=== PATIENT | male | born 1955 | race Two or more races ===

== ENCOUNTER 2020-01-22 20:01 | Inpatient (IN) | payer BC ==
[2020-01-23] MEDS ORDERED: NALOXONE 0.4 MG/ML 1 ML VIAL IV PRN (01:15)
--- NOTE | 2020-01-23 01:33 | P.HPIM ---
History of Present Illness H&P Date: 01/22/20 Chief Complaint: cough, SOB I was wearing full PPE during this encounter including N95 mask, face shield, double gloves, gown, and head cover. patient had a surgical mask on during my entire interview. i maintained 6 feet distance with the patient who verbalized understanding about these precautionary measures. except for during my physical exam where i had to be close to the patient. This patient was transferred from the [facility] 64-year-old male with rheumatoid arthritis on methotrexate Patient comes in with three-week history of fever and dry cough and headaches. He also reports diarrhea for 3 weeks described it as yellow brownish loose stools. Worsening shortness of breath over the past 3 weeks. He denies any body aches denies any loss of taste or smell sensation he reports extensive fatigue. Denies any sore throat denies any runny nose denies any chest pain denies any abdominal pain denies any recent travel denies any close contact with covid19 positive patient Patient has been on methotrexate for rheumatoid arthritis. Patient describes dry cough which has been getting worse. He tested positive for Covid19 Workup done at [facility] Chest x-ray showing bilateral diffuse infiltrates EKG showed normal sinus rhythm with normal QTc interval He was given Z-Mike and Rocephin and magnesium sulfate and potassium at [facility] Patient has normal white count with lymphopenia 0.46 He has acute kidney injury with creatinine of 1.39 and hyponatremia with sodium of 132 Hypokalemia 2.9 Metabolic acidosis with bicarb of 20 Liver enzymes were normal D-dimer slightly elevated 1.1 this is of prognostic value for Covid Lactic acid was normal Troponin negative LDH 390 elevated C-reactive protein elevated Review of Systems Pertinent positives as noted in HPI. All other systems were reviewed and are negative Past Medical History Past Medical History: Rheumatoid Arthritis (RA) Additional Past Medical History / Comment(s): rheumatoid arthritis History of Any Multi-Drug Resistant Organisms: None Reported Past Surgical History: No Surgical Hx Reported Past Anesthesia/Blood Transfusion Reactions: No Reported Reaction Smoking Status: Former smoker - Past Family History family Family Medical History: No Reported History Medications and Allergies Home Medications Medication Instructions Recorded Confirmed Type Albuterol Inhaler [Ventolin Hfa 2 puff INHALATION RT-TID PRN 01/22/20 01/22/20 History Inhaler] Methotrexate Sodium [Methotrexate] 12.5 mg PO SA 01/22/20 01/22/20 History Omeprazole 20 mg PO DAILY 01/22/20 01/22/20 History Allergies Allergy/AdvReac Type Severity Reaction Status Date / Time No Known Allergies Allergy Verified 01/22/20 22:50 Physical Exam Vitals: Vital Signs Temp Pulse Resp BP Pulse Ox 01/22/20 23:39 98.5 F 72 17 111/68 95 01/22/20 22:15 98.4 F 73 18 129/76 98 Intake and Output 01/22/20 01/22/20 01/23/20 14:59 22:59 06:59 Other: Weight 93 kg Limited exam was done to prevent spread of the disease as patient tested positive for occult blood in part of exam was inspection Constitutional: No acute distress, conversant, pleasant, and nasal cannula 2 L Eyes: Anicteric sclerae, Pupils equal round ENMT: NC/AT Neck: Supple, FROM, Lungs: Normal respiratory effort, no accessory muscle use Cardiovascular: No peripheral edema Abdominal: Abdomen moving with respiration Skin: Visible portion of the skin Normal temperature, tone, texture, turgor Extremities: No digital cyanosis No clubbing No calf tenderness Psychiatric: Alert and oriented to person, place and time Appropriate affect fair judgement Neuro patient moving all extremities Lymphatics: deferred Thrombosis Risk Factor Assmnt - Choose All That Apply Each Risk Factor Represents 2 Points: Age 61-74 years Thrombosis Risk Factor Assessment Total Risk Factor Score: 2 Thrombosis Risk Factor Assessment Level: Low Risk Assessment and Plan Assessment: 64-year-old male with rheumatoid arthritis on methotrexate Patient tested positive for covert, presented with symptoms of pneumonia chest x-ray suggested atypical pneumonia covert is positive but cannot rule out superimposed bacterial infection Patient also has acute kidney injury and hypokalemia Anticipated length of stay more than 2 midnights Acute hypoxic respiratory failure Atypical pneumonia secondary to covert positive, cannot rule out underlying superimposed bacterial pneumonia Acute kidney injury, secondary to dehydration and prerenal ATN Mild hyponatremia Hypokalemia Diarrhea mostly due to this part of GI symptoms associated with covid 19 Immune compromise secondary to methotrexate for rheumatoid arthritis Plan Blood culture Follow-up cultures Influenza negative Patient started on Plaquenil Rocephin and doxycycline for atypical pneumonia Zinc by mouth Follow-up blood work D-dimer is of prognostic value for covert patient's currently blood clots is not suspected IV fluid hydration gentle as Covid patient's preferably kept with negative balance, normal saline 75 mL per hour Replace potassium as needed Chest x-ray in the morning Discontinue methotrexate Preformed a thorough record review from recent hospitalization from the [facility] summarized in HPI CODE STATUS: Full code DVT prophylaxis: Upper subcu 3 times a day Discussed with: Patient, ER, RN Anticipated length of stay > than [address]: Home A total of 60 minutes was spent on the care of this complex patient more than 50% of the time was spent in counseling and care coordination.
[2020-01-23] MEDS: HYDROXYCHLOROQUINE SULFATE 200 MG TAB PO SCH ×3 (01:53→21:50)
[2020-01-23] MEDS: SODIUM CHLORIDE 0.9% 1,000 ML IV SCH ×2 (01:54→15:58)
[2020-01-23] MEDS: DOXYCYCLINE 100 MG CAP PO SCH ×3 (01:54→21:49)
--- NOTE | 2020-01-23 07:28 | XR ---
EXAMINATION TYPE: XR chest 1V DATE OF EXAM: 01/23/2020 HISTORY: covid COMPARISON: None. TECHNIQUE: Single view of the chest is submitted. FINDINGS: Mixed interstitial and airspace type infiltrates noted right upper lobe, right medial lung base, left upper lobe and left medial lung base. Lung volumes are diminished. The heart is not enlarged Hilar and mediastinal structures are within normal limits. Degenerative changes are seen of the dorsal spine. IMPRESSION: 1. Suspect COVID
[2020-01-23] MEDS: ZINC SULFATE 220 MG CAP PO SCH (07:49)
[2020-01-23] MEDS: HEPARIN SODIUM,PORCINE 5,000 UNIT/ML 1 ML VIAL SQ SCH ×3 (07:50→23:19)
[2020-01-23] MEDS: ACETAMINOPHEN TAB 325 MG TAB PO PRN ×2 (08:06→15:58)
[2020-01-23 08:36] LABS: Basophils % (A) 0 %; Eosinophils % (A) 1 %; HCT 36.8 % (39.0-53.0); HGB 12.9 gm/dL (13.0-17.5); Lymphocytes # (A) 0.3 k/uL (1.0-4.8); Lymphocytes % (A) 12 %; MCH 30.1 pg (25.0-35.0); Mean Platelet Volume 7.9; Monocytes # (A) 0.1 k/uL (0-1.0); Monocytes % (A) 4 %; Neutrophils # (A) 2.4 k/uL (1.3-7.7); Neutrophils % (A) 82 %; Platelet Count 265 k/uL (150-450); RBC 4.28 m/uL (4.30-5.90); RDW 14.1 % (11.5-15.5)
[2020-01-23 08:47] LABS: ALT 16 U/L (4-49); AST 36 U/L (17-59); African American GFR (CKD) >90 (>60 ml/min/1.73 sqM); Albumin 2.9 g/dL (3.5-5.0); Alkaline Phosphatase 48 U/L (38-126); Anion Gap 12 mmol/L; Blood Urea Nitrogen 15 mg/dL (9-20); Calcium 7.9 mg/dL (8.4-10.2); Carbon Dioxide 17 mmol/L (22-30); Chloride 102 mmol/L (98-107); Glucose 95 mg/dL (74-99); Non-African American GFR(CKD) >90 (>60 ml/min/1.73 sqM); Potassium 3.4 mmol/L (3.5-5.1); Sodium 131 mmol/L (137-145); Total Bilirubin 0.3 mg/dL (0.2-1.3); Total Protein 5.8 g/dL (6.3-8.2)
[2020-01-23] MEDS: ALBUTEROL HFA INHALER INHALATION SCH ×4 (08:48→19:42)
[2020-01-23] MEDS ORDERED: POTASSIUM CHLORIDE ER 20 MEQ TAB.ER PO STA (09:05)
[2020-01-23] MEDS: PANTOPRAZOLE 40 MG TABLET PO SCH (09:27)
[2020-01-23 11:25] LABS: Ferritin 530.5 ng/mL (22.0-322.0)
--- NOTE | 2020-01-23 12:49 | P.PN ---
Subjective Progress Note Date: 01/23/20 Patient seen and examined at bedside, has had a bowel movement this morning. Still have episodes of fever T-max 102, patient reports fatigue and weakness and some difficulty breathing. Chest x-ray this morning suspicious for Covid as it showed mixed interstitial and airspace type infiltrates in the right upper lobe and right medial lung left upper lobe and left medial lung base Objective - Vital Signs Vital signs: Vital Signs Temp 98.4 F 01/23/20 03:15 Pulse 69 01/23/20 03:15 Resp 18 01/23/20 03:15 BP 134/78 01/23/20 03:15 Pulse Ox 95 01/23/20 03:15 Intake & Output 01/22/20 01/23/20 01/23/20 18:59 06:59 18:59 Intake Total 50 Balance 50 Weight 93 kg Intake: Intake, IV Titration 50 Amount cefTRIAXone 1 gm In 50 Sodium Chloride 0.9% 50 ml @ 100 mls/hr IVPB Q24HR [facility] Rx#:[id number] Other: Voiding Method Toilet - Exam Constitutional: No acute distress, conversant, pleasant Eyes: Anicteric sclerae, moist conjunctiva, no lid-lag, PERRLA ENMT: NC/AT,Oropharynx clear, no erythema, exudates Neck:Supple, FROM, no masses, or JVD, No carotid bruits; No thyromegaly Lungs: Diminished in the bases, scattered rhonchi and crackles, unlabored on 2 L Cardiovascular: Heart regular in rate and rhythm, No murmurs, gallops, or rubs no peripheral edema Abdominal: Soft Nontender, nom distended, no guarding, no rebound or rigidity, Normoactive bowel sounds No hepatomegaly, No splenomegaly, No palpable mass No abdominal wall hernia noted Skin: Normal temperature, tone, texture, turgor, No induration No subcutaneous nodules, No rash, lesions, No ulcers Extremities:No digital cyanosis No clubbing, Pedal pulses intact and symmetrical Radial pulses intact and symmetrical Normal gait and station, No calf tenderness Psychiatric: Alert and oriented to person, place and time, Appropriate affect Intact judgement Neuro: Muscles Strength 5/5 in all 4 extremities, Sensation to light touch grossly present throughout, Cranial nerves II-XII grossly intact. No focal sensory deficits - Labs CBC & Chem 7: 01/23/20 07:30 01/23/20 07:30 Assessment and Plan Assessment: nCoV acute respiratory disease with sepsis * Chest x-ray suggestive of Covid * Today's labs showing lymphopenia 0.3, pro-calcitonin 0.17 * Continue current antibiotic regimen with doxycycline and Rocephin and Plaquenil * ID consult pending Acute hypoxic respiratory failure * Continue supplemental oxygen Acute kidney injury, secondary to dehydration and prerenal ATN * Now resolved * Creatinine stable at 0.85, Mild hyponatremia * Continue gentle hydration Hypokalemia * We'll replace and continue to monitor Diarrhea mostly due to this part of GI symptoms associated with covid 19 * Secondary to Covid Immune compromise secondary to methotrexate for rheumatoid arthritis Disposition * Continue current management * Patient oxygen saturations holding stable, continue supportive management
[2020-01-23 18:12] LABS: C Reactive Protein 121.4 mg/L (<10.0)
--- NOTE | 2020-01-23 23:39 | P.CONS ---
History of Present Illness - Reason for Consult Consult date: 01/23/20 POSSIBLE covid19 Requesting physician: Andi Quintero - Chief Complaint shortness of breath and cough x days - History of Present Illness Patient is 64-year-old male with a past medical history of treatment for rheumatoid arthritis on methotrexate presenting to the outside facility with fever cough and headache and also been complaining of diarrhea of 3 weeks dura tion the patient denies any recent travel or close contact patient was evaluated at [facility] patient did have a chest x-ray with diffuse infiltrate was noted to have lymphopenia and evidence of for mild insufficiency and hyperkalemia with concern for possible COVID-19 infection patient has been transferred to [facility] for further management of his condition. On examination patient did have T-max of 102 F he is 94% 4 L nasal cannula , lung examination did shows bilateral coarse breath sounds no significant wheeze Labs--patient did have lymphopenia with a lymphocyte count of 0.3% patient had did have elevated ferritin of 530 LDH of 1067 CRP of 121.4 chest x-ray with bilateral diffuse infiltrate. A/P_--patient with underlying rheumatoid arthritis on methotrexate presented to hospital with increasing shortness of breath cough cough did have diarrhea this patient who did have fever hypoxemia lymphopenia highly suggestive of acute COVID-19 infection with a testing currently pending patient will be treated with the Plaquenil zinc respiratory support may consider low-dose steroids awaiting COVID-19 testing Past Medical History Past Medical History: Rheumatoid Arthritis (RA) Additional Past Medical History / Comment(s): rheumatoid arthritis History of Any Multi-Drug Resistant Organisms: None Reported Past Surgical History: No Surgical Hx Reported Past Anesthesia/Blood Transfusion Reactions: No Reported Reaction Smoking Status: Former smoker - Past Family History family Family Medical History: No Reported History Medications and Allergies Home Medications Medication Instructions Recorded Confirmed Type Albuterol Inhaler [Ventolin Hfa 2 puff INHALATION RT-TID PRN 01/22/20 01/22/20 History Inhaler] Methotrexate Sodium [Methotrexate] 12.5 mg PO SA 01/22/20 01/22/20 History Omeprazole 20 mg PO DAILY 01/22/20 01/22/20 History Allergies Allergy/AdvReac Type Severity Reaction Status Date / Time No Known Allergies Allergy Verified 01/22/20 22:50 Physical Exam Vitals: Vital Signs Temp Pulse Resp BP Pulse Ox 04/03/20 11:03 98.5 F 62 18 111/66 93 L 01/23/20 07:00 102.0 F H 72 18 129/71 93 L 01/23/20 03:15 98.4 F 69 18 134/78 95 01/22/20 23:39 98.5 F 72 17 111/68 95 01/22/20 22:15 98.4 F 73 18 129/76 98 Intake and Output 01/23/20 01/23/20 01/23/20 06:59 14:59 22:59 Intake Total 50 Balance 50 Intake: Intake, IV Titration 50 Amount cefTRIAXone 1 gm In 50 Sodium Chloride 0.9% 50 ml @ 100 mls/hr IVPB Q24HR [facility] Rx#:[id number] Other: Voiding Method Toilet Toilet # Voids 2 # Bowel Movements 1 Results CBC & Chem 7: 01/23/20 07:30 01/23/20 07:30 Labs: Abnormal Lab Results - Last 24 Hours (Table) 01/23/20 01/23/20 01/23/20 Range/Units 02:06 02:06 07:30 WBC 3.0 L (3.8-10.6) k/uL RBC 4.28 L (4.30-5.90) m/uL Hgb 12.9 L (13.0-17.5) gm/dL Hct 36.8 L (39.0-53.0) % Lymphocytes # 0.3 L (1.0-4.8) k/uL Sodium (137-145) mmol/L Potassium (3.5-5.1) mmol/L Carbon Dioxide (22-30) mmol/L Calcium (8.4-10.2) mg/dL Ferritin 530.5 H (22.0-322.0) ng/mL Total Protein (6.3-8.2) g/dL Albumin (3.5-5.0) g/dL Procalcitonin 0.17 H (0.02-0.09) ng/mL 01/23/20 Range/Units 07:30 WBC (3.8-10.6) k/uL RBC (4.30-5.90) m/uL Hgb (13.0-17.5) gm/dL Hct (39.0-53.0) % Lymphocytes # (1.0-4.8) k/uL Sodium 131 L (137-145) mmol/L Potassium 3.4 L (3.5-5.1) mmol/L Carbon Dioxide 17 L (22-30) mmol/L Calcium 7.9 L (8.4-10.2) mg/dL Ferritin (22.0-322.0) ng/mL Total Protein 5.8 L (6.3-8.2) g/dL Albumin 2.9 L (3.5-5.0) g/dL Procalcitonin (0.02-0.09) ng/mL
[2020-01-24] MEDS: HYDROXYCHLOROQUINE SULFATE 200 MG TAB PO SCH ×2 (07:17→22:18)
[2020-01-24] MEDS: HEPARIN SODIUM,PORCINE 5,000 UNIT/ML 1 ML VIAL SQ SCH ×3 (07:17→23:45)
[2020-01-24] MEDS: DOXYCYCLINE 100 MG CAP PO SCH ×2 (07:17→20:01)
[2020-01-24] MEDS: ZINC SULFATE 220 MG CAP PO SCH (07:17)
[2020-01-24] MEDS: PANTOPRAZOLE 40 MG TABLET PO SCH (07:17)
[2020-01-24] MEDS: SODIUM CHLORIDE 0.9% 1,000 ML IV SCH ×2 (07:22→20:30)
[2020-01-24] MEDS: ACETAMINOPHEN TAB 325 MG TAB PO PRN ×4 (07:26→23:45)
[2020-01-24] MEDS: ALBUTEROL HFA INHALER INHALATION SCH ×4 (08:02→20:09)
[2020-01-24 08:03] LABS: ALT 18 U/L (4-49); AST 40 U/L (17-59); African American GFR (CKD) >90 (>60 ml/min/1.73 sqM); Albumin 2.7 g/dL (3.5-5.0); Alkaline Phosphatase 51 U/L (38-126); Anion Gap 10 mmol/L; Blood Urea Nitrogen 9 mg/dL (9-20); Calcium 7.9 mg/dL (8.4-10.2); Carbon Dioxide 18 mmol/L (22-30); Chloride 103 mmol/L (98-107); Glucose 94 mg/dL (74-99); Non-African American GFR(CKD) >90 (>60 ml/min/1.73 sqM); Potassium 3.6 mmol/L (3.5-5.1); Sodium 131 mmol/L (137-145); Total Bilirubin 0.4 mg/dL (0.2-1.3); Total Protein 5.5 g/dL (6.3-8.2)
[2020-01-24 08:21] LABS: Basophils % (A) 0 %; Eosinophils % (A) 1 %; HCT 36.4 % (39.0-53.0); HGB 12.7 gm/dL (13.0-17.5); Lymphocytes # (A) 0.4 k/uL (1.0-4.8); Lymphocytes % (A) 11 %; MCH 30.1 pg (25.0-35.0); MCHC 34.8 g/dL (31.0-37.0); MCV 86.6 fL (80.0-100.0); Mean Platelet Volume 7.9; Monocytes # (A) 0.1 k/uL (0-1.0); Monocytes % (A) 4 %; Neutrophils # (A) 2.8 k/uL (1.3-7.7); Neutrophils % (A) 83 %; Platelet Count 268 k/uL (150-450); WBC 3.4 k/uL (3.8-10.6)
--- NOTE | 2020-01-24 11:36 | P.PN ---
Subjective Progress Note Date: 01/24/20 Principal diagnosis: COVID pneumonia Patient seen and examined at bedside. Patient is COVID 19 positive. This morning patient required more oxygen at 6 L nasal cannula. This has relieved some of his shortness of breath. Fever at 7 AM this morning was 100.8. Patient is currently afebrile and doing better. Patient denies chest pain but admits to shortness of breath. Patient denies nausea and vomiting. Objective - Vital Signs Vital signs: Vital Signs Temp 98.5 F 01/24/20 11:09 Pulse 60 01/24/20 11:09 Resp 18 01/24/20 11:09 BP 124/64 01/24/20 11:09 Pulse Ox 95 01/24/20 11:09 Intake & Output 01/23/20 01/24/20 01/24/20 18:59 06:59 18:59 Intake Total 118 1200 118 Balance 118 1200 118 Intake: Intake, IV Titration 1200 Amount Sodium Chloride 0.9% 1, 1200 000 ml @ 75 mls/hr IV . [id number] [facility] Rx#:[id number] Oral 118 118 Other: Voiding Method Toilet Toilet Toilet # Voids 2 1 # Bowel Movements 1 1 - Exam General: [non toxic], [no distress], [appears at stated age] Derm: [warm], [dry] Head: [atraumatic], [normocephalic], [symmetric] Eyes: [EOMI], [no lid lag], [anicteric sclera] Mouth: [no lip lesion], [mucus membranes moist] Cardiovascular: [S1S2 reg], [no murmur], [positive posterior tibial pulse bilateral], Lungs: [DIMINISHED BREATH SOUNDS B/L], [MILD rhonchi B/L, no rales] , [no accessory muscle use] Abdominal: [soft], [ nontender to palpation], [no guarding], [no appreciable organomegaly] Ext: [no gross muscle atrophy], [no edema], [no contractures] Neuro: [ CN II-XI grossly intact], [no focal neuro deficits] Psych: [Alert], [oriented], [appropriate affect] - Labs CBC & Chem 7: 01/24/20 07:06 01/24/20 07:06 Labs: Abnormal Lab Results - Last 24 Hours (Table) 04/03/20 04/03/20 04/03/20 Range/Units 02:06 02:06 07:30 WBC (3.8-10.6) k/uL RBC (4.30-5.90) m/uL Hgb (13.0-17.5) gm/dL Hct (39.0-53.0) % Lymphocytes # (1.0-4.8) k/uL Sodium (137-145) mmol/L Carbon Dioxide (22-30) mmol/L Calcium (8.4-10.2) mg/dL Ferritin 530.5 H (22.0-322.0) ng/mL Lactate Dehydrogenase 1067 H (313-618) U/L C-Reactive Protein 121.4 H (<10.0) mg/L Total Protein (6.3-8.2) g/dL Albumin (3.5-5.0) g/dL Procalcitonin 0.17 H (0.02-0.09) ng/mL 01/24/20 01/24/20 Range/Units 07:06 07:06 WBC 3.4 L (3.8-10.6) k/uL RBC 4.20 L (4.30-5.90) m/uL Hgb 12.7 L (13.0-17.5) gm/dL Hct 36.4 L (39.0-53.0) % Lymphocytes # 0.4 L (1.0-4.8) k/uL Sodium 131 L (137-145) mmol/L Carbon Dioxide 18 L (22-30) mmol/L Calcium 7.9 L (8.4-10.2) mg/dL Ferritin (22.0-322.0) ng/mL Lactate Dehydrogenase (313-618) U/L C-Reactive Protein (<10.0) mg/L Total Protein 5.5 L (6.3-8.2) g/dL Albumin 2.7 L (3.5-5.0) g/dL Procalcitonin (0.02-0.09) ng/mL Assessment and Plan Assessment: Acute respiratory distress with sepsis secondary to COVID-19 PNEUMONIA * Today's labs showing lymphopenia 0.4 * Continue current antibiotic regimen with doxycycline and Rocephin and Plaquenil * ID consult appreciated Acute hypoxic respiratory failure * Continue supplemental oxygen AT 6L nc Mild hyponatremia * Continue gentle hydration Hypocalcemia * We'll replace and continue to monitor Diarrhea mostly due to this part of GI symptoms associated with covid 19 * Secondary to Covid Immune compromise secondary to methotrexate for rheumatoid arthritis Acute kidney injury, secondary to dehydration and prerenal ATN * Now resolved * Creatinine stable at 0.87, Disposition * Continue current management * Patient oxygen saturations holding stable, continue supportive management
[2020-01-24] MEDS: methylPREDNISolone SOD SUCCI 40 MG/ML 1 ML VIAL IV SCH (23:45)
[2020-01-25] MEDS: HEPARIN SODIUM,PORCINE 5,000 UNIT/ML 1 ML VIAL SQ SCH ×3 (07:12→23:17)
[2020-01-25] MEDS: PANTOPRAZOLE 40 MG TABLET PO SCH (07:12)
[2020-01-25] MEDS: ALBUTEROL HFA INHALER INHALATION SCH ×4 (07:41→21:08)
[2020-01-25 08:03] LABS: Basophils % (A) 0 %; Eosinophils % (A) 1 %; HCT 37.2 % (39.0-53.0); HGB 12.7 gm/dL (13.0-17.5); Lymphocytes # (A) 0.2 k/uL (1.0-4.8); Lymphocytes % (A) 5 %; MCH 29.7 pg (25.0-35.0); MCHC 34.2 g/dL (31.0-37.0); MCV 86.8 fL (80.0-100.0); Mean Platelet Volume 7.8; Monocytes % (A) 1 %; Neutrophils # (A) 2.9 k/uL (1.3-7.7); Neutrophils % (A) 92 %; Platelet Count 312 k/uL (150-450); RBC 4.28 m/uL (4.30-5.90); RDW 14.1 % (11.5-15.5); WBC 3.1 k/uL (3.8-10.6)
[2020-01-25 08:11] LABS: ALT 17 U/L (4-49); AST 43 U/L (17-59); African American GFR (CKD) >90 (>60 ml/min/1.73 sqM); Albumin 2.7 g/dL (3.5-5.0); Alkaline Phosphatase 61 U/L (38-126); Anion Gap 10 mmol/L; Blood Urea Nitrogen 11 mg/dL (9-20); Carbon Dioxide 21 mmol/L (22-30); Chloride 103 mmol/L (98-107); Glucose 118 mg/dL (74-99); Non-African American GFR(CKD) >90 (>60 ml/min/1.73 sqM); Potassium 3.7 mmol/L (3.5-5.1); Sodium 134 mmol/L (137-145); Total Bilirubin 0.5 mg/dL (0.2-1.3); Total Protein 5.5 g/dL (6.3-8.2)
--- NOTE | 2020-01-25 08:35 | PN ---
PROGRESS NOTE DATE OF SERVICE: 01/24/2020 REASON FOR FOLLOWUP: Acute COVID-19 pneumonia. INTERVAL HISTORY: The patient was afebrile this morning. Did spike a fever of 101 Fahrenheit in the afternoon. The patient is breathing slightly comfortably and denies having any chest pain. Did have a cough but no sputum. No nausea, no vomiting. No abdominal pain or diarrhea. PHYSICAL EXAMINATION: Blood pressure 104/62 with a pulse of 84, temperature 98.7. He is 95% on high-flow oxygen. General description is a middle-aged male lying in bed in no distress. Respiratory system: Unlabored breathing, decreased intensity of breath sounds. No wheeze. Heart S1, S2. Regular rate and rhythm. Abdomen soft, no tenderness. LABS: Hemoglobin is 12.7, white count 3.4. BUN of 9, creatinine 0.87. DIAGNOSTIC IMPRESSION AND PLAN: Patient with acute COVID-19 pneumonia in this patient showing slight worsening of his respiratory status. We will add low-dose steroid and monitor clinical course closely. Continue supportive care. MMDESMONDL / ALANAN: [id number] /
[2020-01-25] MEDS: ZINC SULFATE 220 MG CAP PO SCH (08:48)
[2020-01-25] MEDS: DOXYCYCLINE 100 MG CAP PO SCH ×2 (08:48→20:45)
[2020-01-25] MEDS: HYDROXYCHLOROQUINE SULFATE 200 MG TAB PO SCH ×2 (08:48→20:45)
[2020-01-25] MEDS: methylPREDNISolone SOD SUCCI 40 MG/ML 1 ML VIAL IV SCH ×2 (08:49→20:45)
--- NOTE | 2020-01-25 09:16 | XR ---
EXAMINATION TYPE: XR chest 1V DATE OF EXAM: 01/25/2020 HISTORY: shortness of breath . REFERENCE: Previous study dated 01/23/2020. FINDINGS: The heart is enlarged. There are patchy peripheral infiltrates present bilaterally. There i s blunting of both CP angles and I could not exclude small, bilateral effusions. The overall appearan ce is worsened from previous. IMPRESSION: WORSENING BILATERAL PNEUMONIAS.
[2020-01-25 11:02] LABS: ABG Base Excess -5.4 mmol/L; ABG HCO3 19 mmol/L (21-25); ABG PCO2 26 mmHg (35-45); ABG PH 7.46 (7.35-7.45); ABG PO2 63 mmHg (83-108); ABG TCO2 19 mmol/L (19-24); Allen Test Performed? Yes
[2020-01-25] MEDS: SODIUM CHLORIDE 0.9% 1,000 ML IV SCH ×2 (11:04→21:00)
--- NOTE | 2020-01-25 15:11 | P.CNPUL ---
History of Present Illness Consult date: 01/25/20 Reason for consult: dyspnea, hypoxemia, pneumonia History of present illness: I was asked to evaluate this patient who is a 64-year-old male who has been diagnosed having acute covid 19 pneumonia and the patient has been progressively becoming hypoxic as the patient was on few liters about 2 by nasal cannula and subsequently dioxin fluids and she is up to 6 L and then 8 L and currently is on 10 L of oxygen by nasal cannula. The decompensation of worsening the oxygenation has occurred over the past 24 hours. At this point in time the dwight ent is having difficulty breathing which is mild. He has a dry cough. He is sleeping in a prone body position. Seems to be making him more comfortable. While on 10 L of oxygen, is pulse oxing around 96%. His heart rate is at 59. BP is 111/67. He was having on and off low-grade fever throughout the hospitalization and his last temperature spike was 100.3 from 01/24/2020 at 8:00 in the evening. He was given doxycycline Rocephin and Plaquenil. He was placed on zinc sulfate and I also added IV Solu-Medrol 40 mg every 12 hours. The patient had a chest x-ray showing worsening bilateral pulmonary infiltrates and pneumonia compared to the original chest x-ray that was done on 01/23/2020. The blood gas today that was done on a 65% FiO2 showed a pH of 7.46 with a pCO2 of 26 and pO2 of 63 consistent with hypoxemia and respiratory alkalosis. White cell count was suppressed at 3.1. The patient has lymphopenia with a lymphocyte count of 0.2. The patient had a pro-calcitonin level of 0.17. LDH level was 1067 at a time of admission and hasn't been rechecked.. This patient got chest her dose from [facility]. He reported diarrhea around 3 weeks ago and his been having progressive shortness of breath over the past 2-3 weeks. He denies having any body aches. He is extensively fatigued. He was in [place] for spring. He has history of rheumatoid arthritis and the patient has been taking methotrexate for many years regarding his RA Review of Systems Constitutional: Reports fatigue, Reports fever, Reports lethargy, Reports poor appetite, Reports weakness Eyes: denies as per HPI, denies blurred vision, denies bulging eye, denies decreased vision, denies diplopia, denies discharge, denies dry eye, denies irritation, denies itching, denies pain, denies photophobia, denies loss of peripheral vision, denies loss of vision, denies tunnel vision/blind spots Ears: deny: decreased hearing, ear discharge, earache, tinnitus Ears, nose, mouth and throat: Reports as per HPI Cardiovascular: Reports decreased exercise tolerance, Reports dyspnea on exertion, Reports shortness of breath Respiratory: Reports cough, Reports dyspnea Gastrointestinal: Reports as per HPI, Reports diarrhea Genitourinary: Reports as per HPI Musculoskeletal: Reports as per HPI Musculoskeletal: absent: ankle pain, ankle stiffness, ankle swelling Integumentary: Reports as per HPI Neurological: Reports as per HPI, Reports weakness Psychiatric: Reports as per HPI Endocrine: Reports as per HPI, Reports fatigue Hematologic/Lymphatic: Reports as per HPI Allergic/Immunologic: Reports as per HPI Past Medical History Past Medical History: Rheumatoid Arthritis (RA) Additional Past Medical History / Comment(s): rheumatoid arthritis History of Any Multi-Drug Resistant Organisms: None Reported Past Surgical History: No Surgical Hx Reported Past Anesthesia/Blood Transfusion Reactions: No Reported Reaction Smoking Status: Former smoker - Past Family History family Family Medical History: No Reported History Medications and Allergies Home Medications Medication Instructions Recorded Confirmed Type Albuterol Inhaler [Ventolin Hfa 2 puff INHALATION RT-TID PRN 01/22/20 01/22/20 History Inhaler] Methotrexate Sodium [Methotrexate] 12.5 mg PO SA 01/22/20 01/22/20 History Omeprazole 20 mg PO DAILY 01/22/20 01/22/20 History Allergies Allergy/AdvReac Type Severity Reaction Status Date / Time No Known Allergies Allergy Verified 01/22/20 22:50 Physical Exam Vitals: Vital Signs Temp Pulse Resp BP Pulse Ox 01/25/20 14:58 98.5 F 59 L 24 111/67 96 01/25/20 13:18 92 L 01/25/20 11:06 97.7 F 66 28 H 127/75 91 L 01/25/20 09:43 28 H 93 L 01/25/20 09:15 92 L 01/25/20 07:25 18 01/25/20 07:00 98.2 F 68 30 H 135/74 92 L 01/25/20 03:55 98.3 F 63 34 H 130/74 94 L 01/25/20 03:44 64 32 H 130/74 94 L 01/25/20 01:44 34 H 96 01/25/20 00:00 38 H 01/24/20 23:25 99.1 F 70 38 H 154/66 95 01/24/20 23:19 70 40 H 129/78 97 01/24/20 22:44 66 24 96 01/24/20 21:30 30 H 92 L 01/24/20 21:05 99.7 F H 84 30 H 104/62 95 01/24/20 20:55 100.3 F H 105 H 33 H 100/62 92 L 01/24/20 20:40 100.4 F H 100 40 H 105/61 89 L 01/24/20 19:55 24 89 L 01/24/20 17:06 98.4 F 92 L 01/24/20 15:53 98.5 F 01/24/20 15:47 101.1 F H 90 18 120/64 88 L 01/24/20 15:07 93 L Intake and Output 01/25/20 01/25/20 01/25/20 06:59 14:59 22:59 Intake Total 600 Balance 600 Intake: IV 600 Sodium Chloride 0.9% 1, 600 000 ml @ 75 mls/hr IV . [id number] [facility] Rx#:[id number] Other: Voiding Method Toilet The patient looks lethargic and fatigued and tired and he is shallow breathing. Aside from his laying down supine in bed undergoing prone positioning. Currently is on 10 L by nasal cannula. Head exam was generally normal. There was no scleral icterus or corneal arcus. Mucous membranes were moist. Neck was supple and without jugular venous distension, thyromegaly, or carotid bruits. Carotids were easily palpable bilaterally. There was no adenopathy. Lungs sounds are diminished in few crackles at lung bases bilaterally. Breath sounds overall diminished. Cardiac exam revealed the PMI to be normally situated and sized. The rhythm was regular and no extrasystoles were noted during several minutes of auscultation. The first and second heart sounds were normal and physiologic splitting of the second heart sound was noted. There were no murmurs, rubs, clicks, or gallops. Abdominal exam revealed normal bowel sounds. The abdomen was soft, non-tender, and without masses, organomegaly, or appreciable enlargement of the abdominal aorta. Examination of the extremities revealed easily palpable radial, femoral and pedal pulses. There was no cyanosis, clubbing or edema. Examination of the skin revealed no evidence of significant rashes, suspicious appearing nevi or other concerning lesions. Neurologically the patient is awake and alert. He has muscle weakness at his able to answer questions appropriately. His mood is down. Seems to be slightly anxious. No focal neurological deficit. Cranial nerves are intact. Results - Laboratory Findings CBC and BMP: 01/25/20 06:54 01/25/20 06:54 ABG ABG pH 7.46 (7.35-7.45) H 01/25/20 10:57 ABG pCO2 26 mmHg (35-45) L 01/25/20 10:57 ABG pO2 63 mmHg (83-108) L 01/25/20 10:57 ABG O2 Saturation 92.0 % (94-97) L 01/25/20 10:57 Abnormal lab findings: Abnormal Labs 01/23/20 01/23/20 01/23/20 02:06 02:06 07:30 WBC 3.0 L RBC 4.28 L Hgb 12.9 L Hct 36.8 L Lymphocytes # 0.3 L ABG pH ABG pCO2 ABG pO2 ABG HCO3 ABG O2 Saturation Sodium Potassium Carbon Dioxide Glucose Calcium Ferritin 530.5 H Lactate Dehydrogenase C-Reactive Protein Total Protein Albumin Procalcitonin 0.17 H 01/23/20 01/23/20 01/24/20 07:30 07:30 07:06 WBC 3.4 L RBC 4.20 L Hgb 12.7 L Hct 36.4 L Lymphocytes # 0.4 L ABG pH ABG pCO2 ABG pO2 ABG HCO3 ABG O2 Saturation Sodium 131 L Potassium 3.4 L Carbon Dioxide 17 L Glucose Calcium 7.9 L Ferritin Lactate Dehydrogenase 1067 H C-Reactive Protein 121.4 H Total Protein 5.8 L Albumin 2.9 L Procalcitonin 01/24/20 01/25/20 01/25/20 07:06 06:54 06:54 WBC 3.1 L RBC 4.28 L Hgb 12.7 L Hct 37.2 L Lymphocytes # 0.2 L ABG pH ABG pCO2 ABG pO2 ABG HCO3 ABG O2 Saturation Sodium 131 L 134 L Potassium Carbon Dioxide 18 L 21 L Glucose 118 H Calcium 7.9 L 8.0 L Ferritin Lactate Dehydrogenase C-Reactive Protein Total Protein 5.5 L 5.5 L Albumin 2.7 L 2.7 L Procalcitonin 01/25/20 10:57 WBC RBC Hgb Hct Lymphocytes # ABG pH 7.46 H ABG pCO2 26 L ABG pO2 63 L ABG HCO3 19 L ABG O2 Saturation 92.0 L Sodium Potassium Carbon Dioxide Glucose Calcium Ferritin Lactate Dehydrogenase C-Reactive Protein Total Protein Albumin Procalcitonin - Diagnostic Findings Chest x-ray: image reviewed Assessment and Plan Plan: 1 acute bilateral Covid 19 pneumonia . This is a extensive pneumonia and the patient was been immunosuppressed on methotrexate for rheumatoid arthritis. The patient's oxygenation progressively got worse over the past 48 hours and currently is on high flow oxygen at 10 L per minute nasal cannula. In addition, there is no worsening in the chest x-ray findings. 2 acute hypoxic respiratory failure with worsening in the oxygenation and the patient is currently up to 10 L of oxygen by nasal cannula. Blood gas shows hypoxic respiratory failure along with respiratory alkalosis. 3 episodic fever secondary to above 4 generalized fatigue secondary to above 5 diarrhea due to GI manifestation of Covid 19 infection, improved 6 lymphopenia secondary to Covid 19 infection 7 elevated ferritin and LDH secondary to Covid 19 infection Plan Check d-dimer Recheck LDH and ferritin C-reactive protein Starts The patient IV Solu Medrol 40 mg every 12 hours Continue Plaquenil and zinc sulfate Keep the oxygen at high flow at 10 L Awake proning may help with the oxygenation Hold methotrexate for now May need to be transferred to the intensive care unit should there be any worsening in his respiratory status. Case discussed with hospitalist. We'll monitor his condition very closely and will proceed accordingly.
[2020-01-25 16:08] LABS: C Reactive Protein 201.4 mg/L (<10.0)
--- NOTE | 2020-01-25 16:54 | P.PN ---
Subjective Progress Note Date: 01/25/20 Principal diagnosis: Acute hypoxic respiratory failure secondary to COV ID 19 pneumonia Patient seen and examined at bedside. Last night patient developed labored breathing and was placed on a non-breather at 15 L. As a result a chest x-ray was ordered this morning and revealed worsening bilateral pneumonia. ABG revealed hypoxic respiratory failure with respiratory alkalosis. Pulmonary was consulted and is monitoring patient closely. Objective - Vital Signs Vital signs: Vital Signs Temp 98.5 F 01/25/20 14:58 Pulse 59 L 01/25/20 14:58 Resp 24 01/25/20 14:58 BP 111/67 01/25/20 14:58 Pulse Ox 96 01/25/20 14:58 Intake & Output 01/24/20 01/25/20 01/25/20 18:59 06:59 18:59 Intake Total 718 100 600 Balance 718 100 600 Intake: IV 600 600 Sodium Chloride 0.9% 1, 600 600 000 ml @ 75 mls/hr IV . [id number] [facility] Rx#:[id number] Oral 118 100 Other: Voiding Method Toilet Toilet - Exam General: [non toxic], [no distress], [appears at stated age] Derm: [warm], [dry] Head: [atraumatic], [normocephalic], [symmetric] Eyes: [EOMI], [no lid lag], [anicteric sclera] Mouth: [no lip lesion], [mucus membranes moist] Cardiovascular: [S1S2 reg], [no murmur], [positive posterior tibial pulse bilateral], Lungs: [bilateral crackles], [no rhonchi, no rales] , [no accessory muscle use] Abdominal: [soft], [ nontender to palpation], [no guarding], [no appreciable organomegaly] Ext: [no gross muscle atrophy], [no edema], [no contractures] Neuro: [ CN II-XI grossly intact], [no focal neuro deficits] Psych: [Alert], [oriented], [appropriate affect] - Labs CBC & Chem 7: 01/25/20 06:54 01/25/20 06:54 Labs: Abnormal Lab Results - Last 24 Hours (Table) 01/25/20 01/25/20 01/25/20 Range/Units 06:54 06:54 10:57 WBC 3.1 L (3.8-10.6) k/uL RBC 4.28 L (4.30-5.90) m/uL Hgb 12.7 L (13.0-17.5) gm/dL Hct 37.2 L (39.0-53.0) % Lymphocytes # 0.2 L (1.0-4.8) k/uL D-Dimer (<0.60) mg/L FEU ABG pH 7.46 H (7.35-7.45) ABG pCO2 26 L (35-45) mmHg ABG pO2 63 L (83-108) mmHg ABG HCO3 19 L (21-25) mmol/L ABG O2 Saturation 92.0 L (94-97) % Sodium 134 L (137-145) mmol/L Carbon Dioxide 21 L (22-30) mmol/L Glucose 118 H (74-99) mg/dL Calcium 8.0 L (8.4-10.2) mg/dL Lactate Dehydrogenase (313-618) U/L C-Reactive Protein (<10.0) mg/L Total Protein 5.5 L (6.3-8.2) g/dL Albumin 2.7 L (3.5-5.0) g/dL 01/25/20 01/25/20 Range/Units 15:23 15:23 WBC (3.8-10.6) k/uL RBC (4.30-5.90) m/uL Hgb (13.0-17.5) gm/dL Hct (39.0-53.0) % Lymphocytes # (1.0-4.8) k/uL D-Dimer 1.02 H (<0.60) mg/L FEU ABG pH (7.35-7.45) ABG pCO2 (35-45) mmHg ABG pO2 (83-108) mmHg ABG HCO3 (21-25) mmol/L ABG O2 Saturation (94-97) % Sodium (137-145) mmol/L Carbon Dioxide (22-30) mmol/L Glucose (74-99) mg/dL Calcium (8.4-10.2) mg/dL Lactate Dehydrogenase 1652 H (313-618) U/L C-Reactive Protein 201.4 H (<10.0) mg/L Total Protein (6.3-8.2) g/dL Albumin (3.5-5.0) g/dL Assessment and Plan Assessment: Acute respiratory failure with sepsis secondary to COVID-19 PNEUMONIA worsened today * Today's labs showing lymphopenia 0.2 * Continue current antibiotic regimen with doxycycline and Rocephin and Plaquenil * ID consult appreciated * Pulmonary consulted Acute hypoxic respiratory failure * Patient is currently on high flow oxygen * Pulmonary recommendations appreciated Mild hyponatremia improving * Continue gentle hydration Immune compromise secondary to methotrexate for rheumatoid arthritis Acute kidney injury, secondary to dehydration and prerenal ATN * Now resolved * Creatinine stable at 0.81, GI/DVT prophylaxis am labs
--- NOTE | 2020-01-25 17:16 | P.PN ---
Subjective Progress Note Date: 01/25/20 Principal diagnosis: CVA with Atrial fib 86 year old male with acute CVA. Patient has right-sided hemiparesis. MRI revealed large left parietal stroke. Patient is randomly moving his left side. Patient does not respond to normal commands. Patient is mildly tachyca rdic with a heart rate of 102 secondary in A. fib. Objective - Vital Signs Vital signs: Vital Signs Temp 98.5 F 01/25/20 14:58 Pulse 59 L 01/25/20 14:58 Resp 24 01/25/20 14:58 BP 111/67 01/25/20 14:58 Pulse Ox 96 01/25/20 14:58 Intake & Output 01/24/20 01/25/20 01/25/20 18:59 06:59 18:59 Intake Total 718 100 600 Balance 718 100 600 Intake: IV 600 600 Sodium Chloride 0.9% 1, 600 600 000 ml @ 75 mls/hr IV . [id number] [facility] Rx#:[id number] Oral 118 100 Other: Voiding Method Toilet Toilet - Exam General:non responsive Derm: [warm], [dry] Head: [atraumatic], [normocephalic], [symmetric] Eyes: [EOMI], [no lid lag], [anicteric sclera] Mouth: [no lip lesion], [mucus membranes moist] Cardiovascular: [S1S2 reg], [no murmur], [positive posterior tibial pulse bilateral], Lungs: [CTA bilateral], [no rhonchi, no rales] , [no accessory muscle use] Abdominal: [soft], [ nontender to palpation], [no guarding], [no appreciable organomegaly] Ext: [no gross muscle atrophy], [no edema], [no contractures] Neuro:right side hemiparesis Psych: [Alert], [oriented], [appropriate affect] - Labs CBC & Chem 7: 01/25/20 06:54 01/25/20 06:54 Labs: Abnormal Lab Results - Last 24 Hours (Table) 01/25/20 01/25/20 01/25/20 Range/Units 06:54 06:54 10:57 WBC 3.1 L (3.8-10.6) k/uL RBC 4.28 L (4.30-5.90) m/uL Hgb 12.7 L (13.0-17.5) gm/dL Hct 37.2 L (39.0-53.0) % Lymphocytes # 0.2 L (1.0-4.8) k/uL D-Dimer (<0.60) mg/L FEU ABG pH 7.46 H (7.35-7.45) ABG pCO2 26 L (35-45) mmHg ABG pO2 63 L (83-108) mmHg ABG HCO3 19 L (21-25) mmol/L ABG O2 Saturation 92.0 L (94-97) % Sodium 134 L (137-145) mmol/L Carbon Dioxide 21 L (22-30) mmol/L Glucose 118 H (74-99) mg/dL Calcium 8.0 L (8.4-10.2) mg/dL Lactate Dehydrogenase (313-618) U/L C-Reactive Protein (<10.0) mg/L Total Protein 5.5 L (6.3-8.2) g/dL Albumin 2.7 L (3.5-5.0) g/dL 01/25/20 01/25/20 Range/Units 15:23 15:23 WBC (3.8-10.6) k/uL RBC (4.30-5.90) m/uL Hgb (13.0-17.5) gm/dL Hct (39.0-53.0) % Lymphocytes # (1.0-4.8) k/uL D-Dimer 1.02 H (<0.60) mg/L FEU ABG pH (7.35-7.45) ABG pCO2 (35-45) mmHg ABG pO2 (83-108) mmHg ABG HCO3 (21-25) mmol/L ABG O2 Saturation (94-97) % Sodium (137-145) mmol/L Carbon Dioxide (22-30) mmol/L Glucose (74-99) mg/dL Calcium (8.4-10.2) mg/dL Lactate Dehydrogenase 1652 H (313-618) U/L C-Reactive Protein 201.4 H (<10.0) mg/L Total Protein (6.3-8.2) g/dL Albumin (3.5-5.0) g/dL Assessment and Plan Assessment: 1. Acute CVA likely caused by atrial fib secondary to non-compliance -left MCA distribution, large acute stroke on MRI -I spoke to the patient's daughter Christa today. Phone number [phone]. She states that her father has had trouble managing his medications. He has likely missed doses and has not been taking them as prescribed. -Eliquis on hold for now due to high risk of hemorrhagic conversion -continue Aspirin, Statin -Neurology consult -PT/OT, speech therapy -2d Echo pending -Carotid US reveals moderate bilateral plaque formation but stenosis is estimated less than 50% in both internal carotid arteries there is increased velocity right external carotid artery that is increased compared to old exam and corresponds to more than 70% stenosis 2. Hx of DM II -oral meds on hold -continue insulin sliding scale 3. Hx of HTN metoprolol IVP q 6 hrs 4. Afib -Eliquis on hold due to large stroke -cardiology consulted -metoprolol IVP prescribed 5. GI and DVT prophylaxis 6. Am labs
[2020-01-26 06:48] LABS: Basophils % (A) 0 %; Eosinophils % (A) 0 %; HCT 38.3 % (39.0-53.0); HGB 12.8 gm/dL (13.0-17.5); Lymphocytes # (A) 0.3 k/uL (1.0-4.8); Lymphocytes % (A) 4 %; MCH 29.1 pg (25.0-35.0); MCHC 33.3 g/dL (31.0-37.0); MCV 87.4 fL (80.0-100.0); Mean Platelet Volume 8.3; Monocytes # (A) 0.1 k/uL (0-1.0); Monocytes % (A) 2 %; Neutrophils # (A) 5.5 k/uL (1.3-7.7); Neutrophils % (A) 92 %; Platelet Count 333 k/uL (150-450); RBC 4.38 m/uL (4.30-5.90); RDW 14.3 % (11.5-15.5); WBC 5.9 k/uL (3.8-10.6)
[2020-01-26 07:09] LABS: ALT 17 U/L (4-49); AST 38 U/L (17-59); African American GFR (CKD) >90 (>60 ml/min/1.73 sqM); Albumin 2.5 g/dL (3.5-5.0); Alkaline Phosphatase 58 U/L (38-126); Anion Gap 10 mmol/L; Blood Urea Nitrogen 15 mg/dL (9-20); Calcium 8.2 mg/dL (8.4-10.2); Carbon Dioxide 20 mmol/L (22-30); Chloride 108 mmol/L (98-107); Glucose 134 mg/dL (74-99); Non-African American GFR(CKD) >90 (>60 ml/min/1.73 sqM); Potassium 3.3 mmol/L (3.5-5.1); Sodium 138 mmol/L (137-145); Total Bilirubin 0.5 mg/dL (0.2-1.3); Total Protein 5.3 g/dL (6.3-8.2)
--- NOTE | 2020-01-26 07:44 | PN ---
PROGRESS NOTE DATE OF SERVICE: 01/25/2020 REASON FOR FOLLOWUP: Acute COVID-19 Pneumonia. INTERVAL HISTORY: The patient is currently afebrile. He is feeling slightly better today, breathing slightly comfortably. Denies having any chest pain minimal cough no nausea, no vomiting. No abdominal pain no diarrhea. PHYSICAL EXAMINATION: Blood pressure 134/74 with a pulse of 58, temperature 97.7. He is 92% on high-flow oxygen. General description is a middle-aged male, lying in bed in no distress. RESPIRATORY SYSTEM: Unlabored breathing, decreased intensity of breath sounds. No wheeze. HEART: S1, S2. Regular rate and rhythm. ABDOMEN: Soft no tenderness. LABS: Hemoglobin is 12.7, white count of 3.1. BUN of 11, creatinine 0.81. DIAGNOSTIC IMPRESSION AND PLAN: Patient with acute COVID-19 pneumonia. Patient did show some worsening bilateral pneumonia on the x-rays, steroids were added. In view of the requirement high-flow oxygen. Continue with the current Plaquenil and vancomycin and monitor clinical course closely. MMODL / IJN: [id number] /
[2020-01-26] MEDS: ALBUTEROL HFA INHALER INHALATION SCH ×4 (07:49→18:55)
[2020-01-26] MEDS: HEPARIN SODIUM,PORCINE 5,000 UNIT/ML 1 ML VIAL SQ SCH ×3 (07:55→23:03)
[2020-01-26] MEDS: PANTOPRAZOLE 40 MG TABLET PO SCH (07:56)
[2020-01-26] MEDS: HYDROXYCHLOROQUINE SULFATE 200 MG TAB PO SCH ×2 (07:56→20:14)
[2020-01-26] MEDS: methylPREDNISolone SOD SUCCI 40 MG/ML 1 ML VIAL IV SCH ×2 (07:56→20:14)
[2020-01-26] MEDS: DOXYCYCLINE 100 MG CAP PO SCH ×2 (07:57→20:14)
[2020-01-26] MEDS: ZINC SULFATE 220 MG CAP PO SCH (07:58)
[2020-01-26] MEDS: SODIUM CHLORIDE 0.9% 1,000 ML IV SCH (10:23)
[2020-01-26] MEDS ORDERED: POTASSIUM CHLORIDE ER 20 MEQ TAB.ER PO STA (11:22)
--- NOTE | 2020-01-26 12:32 | P.PN ---
Subjective Progress Note Date: 01/26/20 Principal diagnosis: Dyspnea, hypoxemia, pneumonia I was asked to evaluate this patient who is a 64-year-old male who has been diagnosed having acute covid 19 pneumonia and the patient has been progressively becoming hypoxic as the patient was on few liters about 2 by nasal cannula and subsequently dioxin fluids and she is up to 6 L and then 8 L and currently is on 10 L of oxygen by nasal cannula. The decompensation of worsening the oxygenation has occurred over the past 24 hours. At this point in time the patient is having difficulty breathing which is mild. He has a dry cough. He is sleeping in a prone body position. Seems to be making him more comfortable. While on 10 L of oxygen, is pulse oxing around 96%. His heart rate is at 59. BP is 111/67. He was having on and off low-grade fever throughout the hospitalization and his last temperature spike was 100.3 from 01/24/2020 at 8:00 in the evening. He was given doxycycline Rocephin and Plaquenil. He was placed on zinc sulfate and I also added IV Solu-Medrol 40 mg every 12 hours. The patient had a chest x-ray showing worsening bilateral pulmonary infiltrates and pneumonia compared to the original chest x-ray that was done on 01/23/2020. The blood gas today that was done on a 65% FiO2 showed a pH of 7.46 with a pCO2 of 26 and pO2 of 63 consistent with hypoxemia and respiratory alkalosis. White c ell count was suppressed at 3.1. The patient has lymphopenia with a lymphocyte count of 0.2. The patient had a pro-calcitonin level of 0.17. LDH level was 1067 at a time of admission and hasn't been rechecked.. This patient got chest her dose from [facility]. He reported diarrhea around 3 weeks ago and his been having progressive shortness of breath over the past 2-3 weeks. He denies having any body aches. He is extensively fatigued. He was in [place] for spring. He has history of rheumatoid arthritis and the patient has been taking methotrexate for many years regarding his RA On 01/26/2020 patient seen in follow-up on medical surgical floor. Is currently on 11 L per high flow oxygen, his pulse ox is 93%, he is been afebrile, hemodynamically patient is stable, non-tachycardic. Yesterday's chest x-ray has been reviewed showing worsening bilateral pneumonias, patient is on combination of doxycycline, Rocephin, hydroxy chloroquine, and IV Solu-Medrol 40 mg every 12 hours, patient is on zinc 220 mg daily, and Ventolin inhaler. Still dyspnea, but no acute distress. Follow-up labs have been reviewed today, white blood cell count is up to 5.9, hemoglobin is 12.8, sodium is 138, potassium is 3.3, yesterday's LDH was trending up, and CRP was also trending up. Pro-calcitonin was in the intermediate range of 0.17. Lung sounds reveal crackles at bilateral bases. He states although she is still short of breath he overall feels somewhat better. Objective - Vital Signs Vital signs: Vital Signs Temp 98.1 F 01/26/20 11:31 Pulse 67 01/26/20 11:31 Resp 20 01/26/20 11:31 BP 123/66 01/26/20 11:31 Pulse Ox 93 L 01/26/20 11:31 Intake & Output 01/25/20 01/26/20 01/26/20 18:59 06:59 18:59 Intake Total 600 50 Balance 600 50 Intake: IV 600 Sodium Chloride 0.9% 1, 600 000 ml @ 75 mls/hr IV . [id number] [facility] Rx#:[id number] Oral 50 Other: Voiding Method Toilet # Voids 1 - Exam GENERAL EXAM: Alert, very pleasant, 64-year-old white male, on 11 L of oxygen per high flow with a pulse ox of 93%, comfortable in no apparent distress. HEAD: Normocephalic/atraumatic. EYES: Normal reaction of pupils, equal size. Conjunctiva pink, sclera white. NOSE: Clear with pink turbinates. THROAT: No erythema or exudates. NECK: No masses, no JVD, no thyroid enlargement, no adenopathy. CHEST: No chest wall deformity. Symmetrical expansion. LUNGS: Equal air entry with bibasilar crackles CVS: Regular rate and rhythm, normal S1 and S2, no gallops, no murmurs, no rubs ABDOMEN: Soft, nontender. No hepatosplenomegaly, normal bowel sounds, no guarding or rigidity. EXTREMITIES: No clubbing, no edema, no cyanosis, 2+ pulses and upper and lower extremities. MUSCULOSKELETAL: Muscle strength and tone normal. SPINE: No scoliosis or deformity SKIN: No rashes CENTRAL NERVOUS SYSTEM: Alert and oriented -3. No focal deficits, tone is normal in all 4 extremities. PSYCHIATRIC: Alert and oriented -3. Appropriate affect. Intact judgment and insight. - Labs CBC & Chem 7: 01/26/20 05:29 01/26/20 05:29 Labs: Abnormal Lab Results - Last 24 Hours (Table) 01/25/20 01/25/20 01/26/20 Range/Units 15:23 15:23 05:29 Hgb 12.8 L (13.0-17.5) gm/dL Hct 38.3 L (39.0-53.0) % Lymphocytes # 0.3 L (1.0-4.8) k/uL D-Dimer 1.02 H (<0.60) mg/L FEU Potassium (3.5-5.1) mmol/L Chloride (98-107) mmol/L Carbon Dioxide (22-30) mmol/L Glucose (74-99) mg/dL Calcium (8.4-10.2) mg/dL Lactate Dehydrogenase 1652 H (313-618) U/L C-Reactive Protein 201.4 H (<10.0) mg/L Total Protein (6.3-8.2) g/dL Albumin (3.5-5.0) g/dL 01/26/20 Range/Units 05:29 Hgb (13.0-17.5) gm/dL Hct (39.0-53.0) % Lymphocytes # (1.0-4.8) k/uL D-Dimer (<0.60) mg/L FEU Potassium 3.3 L (3.5-5.1) mmol/L Chloride 108 H (98-107) mmol/L Carbon Dioxide 20 L (22-30) mmol/L Glucose 134 H (74-99) mg/dL Calcium 8.2 L (8.4-10.2) mg/dL Lactate Dehydrogenase (313-618) U/L C-Reactive Protein (<10.0) mg/L Total Protein 5.3 L (6.3-8.2) g/dL Albumin 2.5 L (3.5-5.0) g/dL Assessment and Plan Plan: Assessment: 1 acute bilateral Covid 19 pneumonia . This is a extensive pneumonia and the patient was been immunosuppressed on methotrexate for rheumatoid arthritis. The patient's oxygenation progressively got worse over the past 48 hours and currently is on high flow oxygen at 10 L per minute nasal cannula. In addition, there is no worsening in the chest x-ray findings. 2 acute hypoxic respiratory failure with worsening in the oxygenation and the pa tient is currently up to 10 L of oxygen by nasal cannula. Blood gas shows hypoxic respiratory failure along with respiratory alkalosis. 3 episodic fever secondary to above 4 generalized fatigue secondary to above 5 diarrhea due to GI manifestation of Covid 19 infection, improved 6 lymphopenia secondary to Covid 19 infection 7 elevated ferritin and LDH secondary to Covid 19 infection Plan: Patient is doing fairly well on 11 L, even though he still dyspneic but overall he states he is breathing somewhat easier, we'll continue current treatment including Plaquenil, Rocephin and doxycycline, and IV steroids, will obtain follow-up blood work including chest x-ray, LDH, CRP, and a d-dimer in the morning. I performed a history & physical examination of the patient and discussed their management with my nurse practitioner, Vani Rowe. I reviewed the nurse practitioner's note and agree with the documented findings and plan of care. Lung sounds are positive for diffuse crackles at the bases The findings and the impression was discussed with the patient. I attest to the documentation by the nurse practitioner. Time with Patient: Less than 30
[2020-01-26 13:07] LABS: Ferritin 1258.4 ng/mL (22.0-322.0)
--- NOTE | 2020-01-26 14:44 | P.PN ---
<Trudi Suarez - Last Filed: 01/26/20 14:46> Subjective Progress Note Date: 01/26/20 CHIEF COMPLAINT: Covid 19 HISTORY OF PRESENT ILLNESS: 01/25/2020: Patient seen and examined at bedside. Last night patient developed labored breathing and was placed on a non-breather at 15 L. As a result a chest x-ray was ordered this morning and revealed worsening bilateral pneumonia. ABG revealed hypoxic respiratory failure with respiratory alkalosis. Pulmonary was consulted and is monitoring patient closely. 01/26/2020: Patient examined at the bedside. Patient appears short of breath upon examination. However, he denies any shortness of breath or difficulty in breat danny. He denies cough. He is on 11L nasal cannula. Oxygen saturation 92%. He is mildly tachypneic. Afebrile. PHYSICAL EXAM: VITAL SIGNS: Reviewed GENERAL: Well-developed. Appears short of breath during examination. HEENT: No sclera icterus. Extraocular movements grossly intact. Moist buccal mucosa. Head is atraumatic, normocephalic. Hears conversational speech. No nasal drainage. NECK: Supple without lymphadenopathy. CHEST: Lung sounds with crackles to bilateral bases. Equal bilateral excursions. Appears tachypneic CARDIOVASCULAR: Regular rate with regular rhythm. Palpable pulses. ABDOMEN: Soft. Nondistended. Nontender. MUSCULOSKELETAL: No clubbing or cyanosis. NEUROLOGIC: No focal or lateralizing signs. Cranial nerves II through XII grossly intact. PSYCH: Appropriate affect. Alert and oriented to person, place and time. SKIN: Well perfused. Good skin turgor. ASSESSMENT AND PLAN: 1. Bilateral pneumonia with Covid 19 infection, acute hypoxic respiratory failure -Supportive care -Encouraged awake proning -Continue Plaquenil -Continue doxycycline and Rocephin -Continue albuterol inhaler -Continue to monitor labs -Limit IV fluids -Continue contact and droplet isolation precautions -Continue zinc -Continue IV steroids -Wean oxygen as tolerated to maintain O2 sats greater than 92% -Pulmonary following. CXR ordered for AM 2. Immunocompromised secondary to methotrexate for history of rheumatoid arth ritis 3. Hypokalemia -Replace K -Recheck in AM DVT prophylaxis: Heparin subcu Discussed with: Nursing, patient Anticipated discharge: To be determined Anticipated discharge place: Home Nurse practitioner note has been reviewed by physician. Signing provider agrees with the documented findings, assessment, and plan of care. Objective - Vital Signs Vital signs: Vital Signs Temp 98.1 F 01/26/20 11:31 Pulse 70 01/26/20 12:52 Resp 26 H 01/26/20 12:52 BP 123/66 01/26/20 11:31 Pulse Ox 92 L 01/26/20 12:52 Intake & Output 01/25/20 01/26/20 01/26/20 18:59 06:59 18:59 Intake Total 600 50 Balance 600 50 Intake: IV 600 Sodium Chloride 0.9% 1, 600 000 ml @ 75 mls/hr IV . [id number] [facility] Rx#:[id number] Oral 50 Other: Voiding Method Toilet # Voids 1 - Labs CBC & Chem 7: 01/26/20 05:29 01/26/20 05:29 Labs: Abnormal Lab Results - Last 24 Hours (Table) 01/25/20 01/25/20 01/26/20 Range/Units 15:23 15:23 05:29 Hgb 12.8 L (13.0-17.5) gm/dL Hct 38.3 L (39.0-53.0) % Lymphocytes # 0.3 L (1.0-4.8) k/uL D-Dimer 1.02 H (<0.60) mg/L FEU Potassium (3.5-5.1) mmol/L Chloride (98-107) mmol/L Carbon Dioxide (22-30) mmol/L Glucose (74-99) mg/dL Calcium (8.4-10.2) mg/dL Ferritin 1258.4 H (22.0-322.0) ng/mL Lactate Dehydrogenase 1652 H (313-618) U/L C-Reactive Protein 201.4 H (<10.0) mg/L Total Protein (6.3-8.2) g/dL Albumin (3.5-5.0) g/dL 01/26/20 Range/Units 05:29 Hgb (13.0-17.5) gm/dL Hct (39.0-53.0) % Lymphocytes # (1.0-4.8) k/uL D-Dimer (<0.60) mg/L FEU Potassium 3.3 L (3.5-5.1) mmol/L Chloride 108 H (98-107) mmol/L Carbon Dioxide 20 L (22-30) mmol/L Glucose 134 H (74-99) mg/dL Calcium 8.2 L (8.4-10.2) mg/dL Ferritin (22.0-322.0) ng/mL Lactate Dehydrogenase (313-618) U/L C-Reactive Protein (<10.0) mg/L Total Protein 5.3 L (6.3-8.2) g/dL Albumin 2.5 L (3.5-5.0) g/dL <Adriana Blackburn - Last Filed: 01/26/20 18:05> Objective - Vital Signs Vital signs: Vital Signs Temp 98.1 F 01/26/20 15:00 Pulse 68 01/26/20 17:21 Resp 22 01/26/20 17:21 BP 144/74 01/26/20 15:00 Pulse Ox 95 01/26/20 17:21 Intake & Output 01/25/20 01/26/20 01/26/20 18:59 06:59 18:59 Intake Total 600 50 Balance 600 50 Intake: IV 600 Sodium Chloride 0.9% 1, 600 000 ml @ 75 mls/hr IV . [id number] [facility] Rx#:[id number] Oral 50 Other: Voiding Method Toilet # Voids 1 3 - Labs CBC & Chem 7: 01/26/20 05:29 01/26/20 05:29 Labs: Abnormal Lab Results - Last 24 Hours (Table) 01/25/20 01/26/20 01/26/20 Range/Units 15:23 05:29 05:29 Hgb 12.8 L (13.0-17.5) gm/dL Hct 38.3 L (39.0-53.0) % Lymphocytes # 0.3 L (1.0-4.8) k/uL Potassium 3.3 L (3.5-5.1) mmol/L Chloride 108 H (98-107) mmol/L Carbon Dioxide 20 L (22-30) mmol/L Glucose 134 H (74-99) mg/dL Calcium 8.2 L (8.4-10.2) mg/dL Ferritin 1258.4 H (22.0-322.0) ng/mL Total Protein 5.3 L (6.3-8.2) g/dL Albumin 2.5 L (3.5-5.0) g/dL Assessment and Plan Assessment: I saw and evaluated the patient and discussed the care with [Ann-Marie Suarez ], LAUREN on [01/26/2020 ]. I agree with the subjective, assessment and plan as documented in the note above. Patient continues to require large amounts of oxygen to maintain O2 saturation greater than 92%, will continue present management. He is low threshold for intubation. We have discussed with nursing regarding proning the patient for better oxygenation. He is also getting Albuterol inhaler as needed. Pulmonology is following due to the increased requirement for oxygen and possible need for ICU. Physical exam: General: [moderatedistress], [appears at stated age] Skin: [warm], [dry] Lungs: [chest rise symmetrical], [sternal retractions], [ 3 wordconversational dyspnea] Cardiovascular: [ + dorsal pedis pulse bilateral], [capillary refill<2 seconds], [no lower extremity edema]
[2020-01-27] MEDS: SODIUM CHLORIDE 0.9% 1,000 ML IV SCH ×2 (00:43→12:58)
--- NOTE | 2020-01-27 05:19 | PN ---
PROGRESS NOTE DATE OF SERVICE: 01/26/2020 REASON FOR FOLLOWUP: Acute COVID-19 pneumonia. INTERVAL HISTORY: The patient is currently afebrile. The patient denies having any chest pain. Still complains of shortness of breath and cough, feeling weak and tired. No energy. No nausea, no vomiting. No abdominal pain, no diarrhea. PHYSICAL EXAMINATION: Blood pressure 134/61 with a pulse of 64, temperature 98. He is 93% on 11 L nasal cannula. General description is a middle-aged male lying in bed in no distress. RESPIRATORY SYSTEM: Unlabored breathing, decreased intensity of breath sounds. No wheeze. HEART: S1, S2. Regular rate and rhythm. ABDOMEN: Soft, no tenderness. LABS: Hemoglobin is 12.8, white count 5.9. BUN of 15, creatinine 0.71. DIAGNOSTIC IMPRESSION AND PLAN: Patient with acute COVID-19 is covered with Plaquenil, steroids and zinc. Respiratory Status to be monitor closely for worsening respiratory condition and continue with supportive care. MMODL / IJN: [id number] / LUIS ALFREDO
[2020-01-27] MEDS: methylPREDNISolone SOD SUCCI 40 MG/ML 1 ML VIAL IV SCH ×2 (07:03→20:05)
[2020-01-27] MEDS: HEPARIN SODIUM,PORCINE 5,000 UNIT/ML 1 ML VIAL SQ SCH ×3 (07:03→22:45)
[2020-01-27] MEDS: ZINC SULFATE 220 MG CAP PO SCH (07:04)
[2020-01-27] MEDS: PANTOPRAZOLE 40 MG TABLET PO SCH (07:04)
[2020-01-27] MEDS: HYDROXYCHLOROQUINE SULFATE 200 MG TAB PO SCH (07:04)
[2020-01-27] MEDS: DOXYCYCLINE 100 MG CAP PO SCH ×2 (07:04→20:05)
[2020-01-27 07:06] LABS: Basophils % (A) 0 %; Eosinophils % (A) 0 %; HCT 36.3 % (39.0-53.0); HGB 12.1 gm/dL (13.0-17.5); Lymphocytes # (A) 0.2 k/uL (1.0-4.8); Lymphocytes % (A) 4 %; MCH 29.4 pg (25.0-35.0); MCHC 33.4 g/dL (31.0-37.0); MCV 87.9 fL (80.0-100.0); Mean Platelet Volume 8.1; Monocytes # (A) 0.2 k/uL (0-1.0); Monocytes % (A) 3 %; Neutrophils # (A) 5.4 k/uL (1.3-7.7); Neutrophils % (A) 92 %; Platelet Count 383 k/uL (150-450); RBC 4.13 m/uL (4.30-5.90); RDW 14.3 % (11.5-15.5); WBC 5.9 k/uL (3.8-10.6)
[2020-01-27 07:20] LABS: ALT 26 U/L (4-49); AST 53 U/L (17-59); African American GFR (CKD) >90 (>60 ml/min/1.73 sqM); Albumin 2.5 g/dL (3.5-5.0); Alkaline Phosphatase 67 U/L (38-126); Anion Gap 8 mmol/L; Blood Urea Nitrogen 14 mg/dL (9-20); Calcium 8.1 mg/dL (8.4-10.2); Carbon Dioxide 20 mmol/L (22-30); Chloride 109 mmol/L (98-107); Creatine Kinase 29 U/L (55-170); Glucose 123 mg/dL (74-99); LDH 1728 U/L (313-618); Non-African American GFR(CKD) >90 (>60 ml/min/1.73 sqM); Potassium 3.3 mmol/L (3.5-5.1); Sodium 137 mmol/L (137-145); Total Bilirubin 0.6 mg/dL (0.2-1.3); Total Protein 5.1 g/dL (6.3-8.2)
[2020-01-27] MEDS: ALBUTEROL HFA INHALER INHALATION SCH ×4 (08:04→20:08)
--- NOTE | 2020-01-27 08:14 | XR ---
EXAMINATION TYPE: XR chest 1V portable DATE OF EXAM: 01/27/2020 Comparison: 01/25/2020 Clinical History: 64 year-old male shortness of breath Findings: Heart upper limits of normal in size. Aorta within normal limits. Diffuse interstitial infiltrates pe rsist. Some improvement in lung volumes and a proved patchy density in the lower lungs. No pleural ef fusion. Impression: Persistent diffuse interstitial infiltrates. Improved lung volumes with some improvement in aeration at the lung bases.
[2020-01-27 08:22] LABS: C Reactive Protein 49.1 mg/L (<10.0)
--- NOTE | 2020-01-27 11:19 | P.PN ---
<Trudi Suraez - Last Filed: 01/27/20 11:11> Subjective Progress Note Date: 01/27/20 CHIEF COMPLAINT: Covid 19 HISTORY OF PRESENT ILLNESS: 01/25/2020: Patient seen and examined at bedside. Last night patient developed labored breathing and was placed on a non-breather at 15 L. As a result a chest x-ray was ordered this morning and revealed worsening bilateral pneumonia. ABG revealed hypoxic respiratory failure with respiratory alkalosis. Pulmonary was consulted and is monitoring patient closely. 01/26/2020: Patient examined at the bedside. Patient appears short of breath upon examination. However, he denies any shortness of breath or difficulty in breat danny. He denies cough. He is on 11L nasal cannula. Oxygen saturation 92%. He is mildly tachypneic. Afebrile. 01/27/2020: Patient examined at the bedside. He is on 13L NC. Oxygen saturations 90-94%. He reports slight SOB today. Denies coughing. Patient states he has been doing awake proning over the last 24 hours. Encouraged patient to continue doing this. Chest x-ray today reveals persistent diffuse interstitial infiltrates. Improved lung volumes with some improvement in aeration at the lung bases. PHYSICAL EXAM: VITAL SIGNS: Reviewed GENERAL: Well-developed. Appears short of breath during examination. HEENT: No sclera icterus. Extraocular movements grossly intact. Moist buccal mucosa. Head is atraumatic, normocephalic. Hears conversational speech. No nasal drainage. NECK: Supple without lymphadenopathy. CHEST: Lung sounds with crackles to bilateral bases. Equal bilateral excursions. Appears tachypneic CARDIOVASCULAR: Regular rate with regular rhythm. Palpable pulses. ABDOMEN: Soft. Nondistended. Nontender. MUSCULOSKELETAL: No clubbing or cyanosis. NEUROLOGIC: No focal or lateralizing signs. Cranial nerves II through XII grossly intact. PSYCH: Appropriate affect. Alert and oriented to person, place and time. SKIN: Well perfused. Good skin turgor. ASSESSMENT AND PLAN: 1. Bilateral pneumonia with Covid 19 infection, acute hypoxic respiratory failure -Supportive care -Encouraged awake proning -Continue Plaquenil -Continue doxycycline and Rocephin -Continue albuterol inhaler -Continue to monitor labs -Limit IV fluids -Continue contact and droplet isolation precautions -Continue zinc -Continue IV steroids -Wean oxygen as tolerated to maintain O2 sats greater than 92% -Pulmonary following 2. Immunocompromised secondary to methotrexate for history of rheumatoid arthritis 3. Hypokalemia -Replace K -Recheck in AM DVT prophylaxis: Heparin subcu Discussed with: Nursing, patient Anticipated discharge: To be determined Anticipated discharge place: Home Nurse practitioner note has been reviewed by physician. Signing provider agrees with the documented findings, assessment, and plan of care. Objective - Vital Signs Vital signs: Vital Signs Temp 97.6 F 01/27/20 07:00 Pulse 63 01/27/20 09:48 Resp 20 01/27/20 09:48 BP 161/76 01/27/20 07:00 Pulse Ox 94 L 01/27/20 09:48 Intake & Output 01/26/20 01/27/20 01/27/20 18:59 06:59 18:59 Intake Total 1200 Balance 1200 Intake: IV 1200 Sodium Chloride 0.9% 1, 1200 000 ml @ 75 mls/hr IV . [id number] [facility] Rx#:[id number] Other: Voiding Method Urinal # Voids 3 1 - Labs CBC & Chem 7: 01/27/20 06:28 01/27/20 06:28 Labs: Abnormal Lab Results - Last 24 Hours (Table) 01/25/20 01/27/20 01/27/20 Range/Units 15:23 06:28 06:28 RBC 4.13 L (4.30-5.90) m/uL Hgb 12.1 L (13.0-17.5) gm/dL Hct 36.3 L (39.0-53.0) % Lymphocytes # 0.2 L (1.0-4.8) k/uL D-Dimer (<0.60) mg/L FEU Potassium 3.3 L (3.5-5.1) mmol/L Chloride 109 H (98-107) mmol/L Carbon Dioxide 20 L (22-30) mmol/L Glucose 123 H (74-99) mg/dL Calcium 8.1 L (8.4-10.2) mg/dL Ferritin 1258.4 H (22.0-322.0) ng/mL Lactate Dehydrogenase 1728 H (313-618) U/L Creatine Kinase 29 L (55-170) U/L C-Reactive Protein 49.1 H (<10.0) mg/L Total Protein 5.1 L (6.3-8.2) g/dL Albumin 2.5 L (3.5-5.0) g/dL 01/27/20 Range/Units 06:28 RBC (4.30-5.90) m/uL Hgb (13.0-17.5) gm/dL Hct (39.0-53.0) % Lymphocytes # (1.0-4.8) k/uL D-Dimer 1.44 H (<0.60) mg/L FEU Potassium (3.5-5.1) mmol/L Chloride (98-107) mmol/L Carbon Dioxide (22-30) mmol/L Glucose (74-99) mg/dL Calcium (8.4-10.2) mg/dL Ferritin (22.0-322.0) ng/mL Lactate Dehydrogenase (313-618) U/L Creatine Kinase (55-170) U/L C-Reactive Protein (<10.0) mg/L Total Protein (6.3-8.2) g/dL Albumin (3.5-5.0) g/dL <Adriana Blackburn - Last Filed: 01/27/20 17:09> Objective - Vital Signs Vital signs: Vital Signs Temp 98.0 F 01/27/20 15:00 Pulse 50 L 01/27/20 15:00 Resp 22 01/27/20 15:00 BP 171/83 01/27/20 15:00 Pulse Ox 94 L 01/27/20 15:00 Intake & Output 01/26/20 01/27/20 01/27/20 18:59 06:59 18:59 Intake Total 1200 Output Total 1800 Balance 1200 -1800 Intake: IV 1200 Sodium Chloride 0.9% 1, 1200 000 ml @ 75 mls/hr IV . [id number] [facility] Rx#:[id number] Output: Urine 1800 Other: Voiding Method Urinal # Voids 3 1 - Labs CBC & Chem 7: 01/27/20 06:28 01/27/20 14:58 Labs: Abnormal Lab Results - Last 24 Hours (Table) 01/27/20 01/27/20 01/27/20 Range/Units 06:28 06:28 06:28 RBC 4.13 L (4.30-5.90) m/uL Hgb 12.1 L (13.0-17.5) gm/dL Hct 36.3 L (39.0-53.0) % Lymphocytes # 0.2 L (1.0-4.8) k/uL D-Dimer 1.44 H (<0.60) mg/L FEU Potassium 3.3 L (3.5-5.1) mmol/L Chloride 109 H (98-107) mmol/L Carbon Dioxide 20 L (22-30) mmol/L Glucose 123 H (74-99) mg/dL Calcium 8.1 L (8.4-10.2) mg/dL Ferritin 1324.9 H (22.0-322.0) ng/mL Lactate Dehydrogenase 1728 H (313-618) U/L Creatine Kinase 29 L (55-170) U/L C-Reactive Protein 49.1 H (<10.0) mg/L Total Protein 5.1 L (6.3-8.2) g/dL Albumin 2.5 L (3.5-5.0) g/dL 01/27/20 Range/Units 14:58 RBC (4.30-5.90) m/uL Hgb (13.0-17.5) gm/dL Hct (39.0-53.0) % Lymphocytes # (1.0-4.8) k/uL D-Dimer (<0.60) mg/L FEU Potassium 3.2 L (3.5-5.1) mmol/L Chloride (98-107) mmol/L Carbon Dioxide (22-30) mmol/L Glucose (74-99) mg/dL Calcium (8.4-10.2) mg/dL Ferritin (22.0-322.0) ng/mL Lactate Dehydrogenase (313-618) U/L Creatine Kinase (55-170) U/L C-Reactive Protein (<10.0) mg/L Total Protein (6.3-8.2) g/dL Albumin (3.5-5.0) g/dL Assessment and Plan Assessment: I saw and evaluated the patient and discussed the care with [Ann-Marie Suarez ], LAUREN on [01/27/2020 ]. I agree with the subjective, assessment and plan as documented in the note above. Patient continues to require large amounts of oxygen to maintain O2 saturation greater than 92%, we will continue present management. He is low threshold for intubation. We have discussed with nursing regarding proning the patient for better oxygenation. He is also getting Albut hung inhaler as needed. Pulmonology is following due to the increased requirement for oxygen and possible need for ICU. Nursing reports of 4 beat V. tach on telemetry. Found to have low potassium, replaced via IV. Mg within normal limits. Patient on telemetry monitoring. Cardiology consulted and echocardiogram ordered. Physical exam: General: [moderatedistress], [appears at stated age] Skin: [warm], [dry] Lungs: [chest rise symmetrical], [sternal retractions], [ 3 wordconversational dyspnea] Cardiovascular: [ + dorsal pedis pulse bilateral], [capillary refill<2 seconds], [no lower extremity edema]
--- NOTE | 2020-01-27 12:28 | P.PN ---
Subjective Progress Note Date: 01/27/20 Principal diagnosis: Dyspnea, hypoxemia, pneumonia I was asked to evaluate this patient who is a 64-year-old male who has been diagnosed having acute covid 19 pneumonia and the patient has been progressively becoming hypoxic as the patient was on few liters about 2 by nasal cannula and subsequently dioxin fluids and she is up to 6 L and then 8 L and currently is on 10 L of oxygen by nasal cannula. The decompensation of worsening the oxygenation has occurred over the past 24 hours. At this point in time the patient is having difficulty breathing which is mild. He has a dry cough. He is sleeping in a prone body position. Seems to be making him more comfortable. While on 10 L of oxygen, is pulse oxing around 96%. His heart rate is at 59. BP is 111/67. He was having on and off low-grade fever throughout the hospitalization and his last temperature spike was 100.3 from 01/24/2020 at 8:00 in the evening. He was given doxycycline Rocephin and Plaquenil. He was placed on zinc sulfate and I also added IV Solu-Medrol 40 mg every 12 hours. The patient had a chest x-ray showing worsening bilateral pulmonary infiltrates and pneumonia compared to the original chest x-ray that was done on 01/23/2020. The blood gas today that was done on a 65% FiO2 showed a pH of 7.46 with a pCO2 of 26 and pO2 of 63 consistent with hypoxemia and respiratory alkalosis. White c ell count was suppressed at 3.1. The patient has lymphopenia with a lymphocyte count of 0.2. The patient had a pro-calcitonin level of 0.17. LDH level was 1067 at a time of admission and hasn't been rechecked.. This patient got chest her dose from [facility]. He reported diarrhea around 3 weeks ago and his been having progressive shortness of breath over the past 2-3 weeks. He denies having any body aches. He is extensively fatigued. He was in [place] for spring. He has history of rheumatoid arthritis and the patient has been taking methotrexate for many years regarding his RA On 01/26/2020 patient seen in follow-up on medical surgical floor. Is currently on 11 L per high flow oxygen, his pulse ox is 93%, he is been afebrile, hemodynamically patient is stable, non-tachycardic. Yesterday's chest x-ray has been reviewed showing worsening bilateral pneumonias, patient is on combination of doxycycline, Rocephin, hydroxy chloroquine, and IV Solu-Medrol 40 mg every 12 hours, patient is on zinc 220 mg daily, and Ventolin inhaler. Still dyspnea, but no acute distress. Follow-up labs have been reviewed today, white blood cell count is up to 5.9, hemoglobin is 12.8, sodium is 138, potassium is 3.3, yesterday's LDH was trending up, and CRP was also trending up. Pro-calcitonin was in the intermediate range of 0.17. Lung sounds reveal crackles at bilateral bases. He states although she is still short of breath he overall feels somewhat better. On 01/27/2020 patient seen in follow-up on medical surgical floor. Patient is awake and alert, his oxygenation demand did increase overnight, he is currently on 13 L per high flow nasal cannula, he is satting about 93%, however he appears to be in no acute distress, mildly dyspneic, still has a dry cough, lung sounds reveal some crackles in bilateral lungs, no rhonchi or wheezing, patient is positive for Covid 19 infection, and she remains on a regime of hydroxychloroquine, IV Solu-Medrol, Rocephin and doxycycline. Afebrile. Today's chest x-ray has been reviewed showing persistent diffuse interstitial infiltrates, improved lung volumes with some improvement in aeration of the lung bases. Continue current medical treatment, today's labs have been reviewed, d- dimer is up to 1.44, no leukocytosis, hemoglobin is 12.1, sodium is 137, potassium 3.3, chloride is 109, CO2 is 20, B1 is 14 creatinine 0.70, LDH slightly trended up to 1728, CK is 29, CRP has significantly improved and is down to 49 Objective - Vital Signs Vital signs: Vital Signs Temp 98.2 F 01/27/20 11:49 Pulse 59 L 01/27/20 11:49 Resp 22 01/27/20 11:49 BP 164/85 01/27/20 11:49 Pulse Ox 95 01/27/20 11:49 Intake & Output 01/26/20 01/27/20 01/27/20 18:59 06:59 18:59 Intake Total 1200 Balance 1200 Intake: IV 1200 Sodium Chloride 0.9% 1, 1200 000 ml @ 75 mls/hr IV . [id number] [facility] Rx#:[id number] Other: Voiding Method Urinal # Voids 3 1 - Exam GENERAL EXAM: Alert, very pleasant, 64-year-old white male, on 13 L of oxygen per high flow with a pulse ox of 93%, comfortable in no apparent distress. HEAD: Normocephalic/atraumatic. EYES: Normal reaction of pupils, equal size. Conjunctiva pink, sclera white. NOSE: Clear with pink turbinates. THROAT: No erythema or exudates. NECK: No masses, no JVD, no thyroid enlargement, no adenopathy. CHEST: No chest wall deformity. Symmetrical expansion. LUNGS: Equal air entry with bibasilar crackles CVS: Regular rate and rhythm, normal S1 and S2, no gallops, no murmurs, no rubs ABDOMEN: Soft, nontender. No hepatosplenomegaly, normal bowel sounds, no guarding or rigidity. EXTREMITIES: No clubbing, no edema, no cyanosis, 2+ pulses and upper and lower extremities. MUSCULOSKELETAL: Muscle strength and tone normal. SPINE: No scoliosis or deformity SKIN: No rashes CENTRAL NERVOUS SYSTEM: Alert and oriented -3. No focal deficits, tone is normal in all 4 extremities. PSYCHIATRIC: Alert and oriented -3. Appropriate affect. Intact judgment and insight. - Labs CBC & Chem 7: 01/27/20 06:28 01/27/20 06:28 Labs: Abnormal Lab Results - Last 24 Hours (Table) 01/25/20 01/27/20 01/27/20 Range/Units 15:23 06:28 06:28 RBC 4.13 L (4.30-5.90) m/uL Hgb 12.1 L (13.0-17.5) gm/dL Hct 36.3 L (39.0-53.0) % Lymphocytes # 0.2 L (1.0-4.8) k/uL D-Dimer (<0.60) mg/L FEU Potassium 3.3 L (3.5-5.1) mmol/L Chloride 109 H (98-107) mmol/L Carbon Dioxide 20 L (22-30) mmol/L Glucose 123 H (74-99) mg/dL Calcium 8.1 L (8.4-10.2) mg/dL Ferritin 1258.4 H (22.0-322.0) ng/mL Lactate Dehydrogenase 1728 H (313-618) U/L Creatine Kinase 29 L (55-170) U/L C-Reactive Protein 49.1 H (<10.0) mg/L Total Protein 5.1 L (6.3-8.2) g/dL Albumin 2.5 L (3.5-5.0) g/dL 01/27/20 Range/Units 06:28 RBC (4.30-5.90) m/uL Hgb (13.0-17.5) gm/dL Hct (39.0-53.0) % Lymphocytes # (1.0-4.8) k/uL D-Dimer 1.44 H (<0.60) mg/L FEU Potassium (3.5-5.1) mmol/L Chloride (98-107) mmol/L Carbon Dioxide (22-30) mmol/L Glucose (74-99) mg/dL Calcium (8.4-10.2) mg/dL Ferritin (22.0-322.0) ng/mL Lactate Dehydrogenase (313-618) U/L Creatine Kinase (55-170) U/L C-Reactive Protein (<10.0) mg/L Total Protein (6.3-8.2) g/dL Albumin (3.5-5.0) g/dL Assessment and Plan Plan: Assessment: 1 acute bilateral Covid 19 pneumonia . This is a extensive pneumonia and the patient was been immunosuppressed on methotrexate for rheumatoid arthritis. The patient's oxygenation progressively got worse over the past 48 hours and current ly is on high flow oxygen at 10 L per minute nasal cannula. In addition, there is no worsening in the chest x-ray findings. 2 acute hypoxic respiratory failure with worsening in the oxygenation and the patient is currently up to 10 L of oxygen by nasal cannula. Blood gas shows hypoxic respiratory failure along with respiratory alkalosis. 3 episodic fever secondary to above 4 generalized fatigue secondary to above 5 diarrhea due to GI manifestation of Covid 19 infection, improved 6 lymphopenia secondary to Covid 19 infection 7 elevated ferritin and LDH secondary to Covid 19 infection Plan: Continue current medical treatment, continue Plaquenil, doxycycline and Rocephin, patient has been afebrile, CRP is trending down although the other inflammatory markers remain elevated. Clinically patient denies any worsening dyspnea, although his oxygenation demands have slightly increased, we'll continue to closely monitor him on the floor. I performed a history & physical examination of the patient and discussed their management with my nurse practitioner, Vani Rowe. I reviewed the nurse practitioner's note and agree with the documented findings and plan of care. Lung sounds are positive for diffuse crackles at the bases The findings and the impression was discussed with the patient. I attest to the documentation by the nurse practitioner. Time with Patient: Less than 30
[2020-01-27] MEDS ORDERED: Potassium Replacement Protocol 1 EACH MISC MISCELLANE PRN (15:42)
[2020-01-27 15:50] LABS: Ferritin 1324.9 ng/mL (22.0-322.0)
[2020-01-27 15:51] LABS: Potassium 3.2 mmol/L (3.5-5.1)
[2020-01-27] MEDS: POTASSIUM CHLORIDE ER 20 MEQ TAB.ER PO SCH ×2 (16:33→17:11)
[2020-01-27] MEDS: POTASSIUM CHLORIDE 10 MEQ in WATER FOR INJECTION 1 100ML.BAG IVPB SCH ×4 (17:15→22:45)
[2020-01-27] MEDS ORDERED: AZITHROMYCIN 500 MG in SODIUM CHLORIDE 0.9% 250 ML IVPB STA (22:46)
[2020-01-28] MEDS ORDERED: POTASSIUM CHLORIDE 10 MEQ in WATER FOR INJECTION 2 100ML.BAG IVPB STA (00:46)
[2020-01-28] MEDS ORDERED: Potassium Replacement Protocol 1 EACH MISC MISCELLANE PRN (00:50)
[2020-01-28] MEDS: POTASSIUM CHLORIDE 10 MEQ in WATER FOR INJECTION 1 100ML.BAG IVPB SCH ×2 (01:06→02:19)
[2020-01-28] MEDS: SODIUM CHLORIDE 0.9% 1,000 ML IV SCH ×2 (02:14→16:42)
--- NOTE | 2020-01-28 06:04 | PN ---
PROGRESS NOTE DATE OF SERVICE: 01/27/2020 REASON FOR FOLLOWUP: Acute COVID-19 pneumonia. INTERVAL HISTORY: The patient is afebrile. The patient still requiring high-flow oxygen though mentioned feeling slightly better. The patient denies having any chest pain. Cough but no sputum. No nausea, no vomiting. No abdominal pain, no diarrhea. PHYSICAL EXAMINATION: Blood pressure 122/62 with a pulse of 68, temperature 97.8. He is 91% on 13 L high- flow oxygen. General description is a middle-aged male lying in bed in no distress. RESPIRATORY SYSTEM: Unlabored breathing with decreased intensity of breath sounds. No wheeze. HEART: S1, S2. Regular rate and rhythm. ABDOMEN: Soft, no tenderness. LABS: Reviewed. DIAGNOSTIC IMPRESSION AND PLAN: Patient with acute COVID-19 pneumonia in this patient with some clinical improvement, still requiring high-flow oxygen, completed a 5-day course of Plaquenil. Will add Zithromax and monitor clinical course closely. Continue with zinc and the steroid. MMODL / IJN: [id number] /
[2020-01-28] MEDS: HEPARIN SODIUM,PORCINE 5,000 UNIT/ML 1 ML VIAL SQ SCH ×3 (07:15→23:30)
[2020-01-28] MEDS: PANTOPRAZOLE 40 MG TABLET PO SCH (07:15)
--- NOTE | 2020-01-28 07:16 | P.CRDCN ---
History of Present Illness History of present illness: HISTORY OF PRESENTING ILLNESS This is a pleasant 64-year-old male past medical history significant for rheumatoid arthritis. He denies prior history of coronary artery disease and does not follow with a last dipper for any reason. He was transferred to our hospital from [facility] secondary to Covid-19. We have asked to see him in consultation secondary to bradycardia. Telemetry tracings reveal heart rate fluctuating between 45-55. He is seen and examined sitting up in bed in no acute distress. He continues to complain of persistent shortness of breath. He has no symptoms of chest pain, dizziness or palpitations. He states his heart rate runs low usually between 45 and 55 is his norm whenever he goes to his physician's office. DIAGNOSTICS EKG reveals sinus mechanism, left axis deviation with nonspecific abnormalities. Telemetry tracings reveal intermittent episodes of sinus bradycardia. Repeat EKG shows sinus bradycardia. Chest xray persistent diffuse interstitial infiltrates. Laboratory reviewed, WBC 5.9, hemoglobin 12.1, platelets 383, d-dimer 1.44, potassium 3.3, creatinine 0.7, potassium 2.0, ferritin 1024, lactate 1728, CK 29, CRP 49. Takes no daily cardiac medications. REVIEW OF SYSTEMS At the time of my exam: CONSTITUTIONAL: Denies fever or chills. CARDIOVASCULAR: Complains of shortness of breath. Denies chest pain, orthopnea, PND or palpitations. RESPIRATORY: Denies cough. GASTROINTESTINAL: Denies abdominal pain, diarrhea, constipation, nausea or vomiting. MUSCULOSKELETAL: Denies myalgias. NEUROLOGIC: Denies numbness, tingling or weakness. ENDOCRINE: Denies fatigue, weight change, polydipsia or polyurina. GENITOURINARY: Denies burning, hematuria or urgency with micturation. HEMATOLOGIC: Denies history of anemia or bleeding. PHYSICAL EXAMINATION Blood pressure 171/83 heart rate 50 afebrile and maintaining oxygen saturation on room air. CONSTITUTIONAL: No apparent distress. HEENT: Head is normocephalic. Pupils are equal, round. Sclerae anicteric. Mucous membranes of the mouth are moist. No JVD. No carotid bruit. CHEST EXAMINATION: Scattered rhonchi. No wheezes or rales. No chest wall tenderness is noted on palpation or with deep breathing. HEART EXAMINATION: Regular rate and rhythm. S1, S2 heard. No murmurs, gallops or rub. ABDOMEN: Soft, nontender. Positive bowel sounds. EXTREMITIES: 2+ peripheral pulses, no lower extremity edema and no calf tenderness. NEUROLOGIC EXAMINATION: Patient is awake, alert and oriented x3. ASSESSMENT COVID 19 Sinus bradycardia Hypokalemia Rheumatoid arthritis PLAN Replace potassium per protocol. Check TSH, magnesium and repeat potassium after supplementation. Echocardiogram has been obtained and will be reviewed. Ongoing telemetry monitoring. Thank you kindly for this consultation. Nurse Practitioner note has been reviewed, I agree with a documented findings and plan of care. Patient was seen and examined. Past Medical History Past Medical History: Rheumatoid Arthritis (RA) Additional Past Medical History / Comment(s): rheumatoid arthritis History of Any Multi-Drug Resistant Organisms: None Reported Past Surgical History: No Surgical Hx Reported Past Anesthesia/Blood Transfusion Reactions: No Reported Reaction Smoking Status: Former smoker - Past Family History family Family Medical History: No Reported History Medications and Allergies Home Medications Medication Instructions Recorded Confirmed Type Albuterol Inhaler [Ventolin Hfa 2 puff INHALATION RT-TID PRN 01/22/20 01/22/20 History Inhaler] Methotrexate Sodium [Methotrexate] 12.5 mg PO SA 01/22/20 01/22/20 History Omeprazole 20 mg PO DAILY 01/22/20 01/22/20 History Allergies Allergy/AdvReac Type Severity Reaction Status Date / Time No Known Allergies Allergy Verified 01/22/20 22:50 Physical Exam Vitals: Vital Signs Temp Pulse Resp BP Pulse Ox 01/27/20 15:00 98.0 F 50 L 22 171/83 94 L 01/27/20 13:29 51 L 22 97 01/27/20 11:49 98.2 F 59 L 22 164/85 95 01/27/20 09:48 63 20 94 L 01/27/20 07:00 97.6 F 50 L 24 161/76 92 L 01/27/20 05:35 91 L 01/27/20 03:34 98.3 F 66 20 149/81 94 L 01/27/20 01:23 92 L 01/26/20 23:34 93 L 01/26/20 23:23 98.0 F 64 20 108/61 89 L 01/26/20 21:18 93 L 01/26/20 19:08 73 20 01/26/20 19:07 98.2 F 73 20 134/61 95 01/26/20 17:21 68 22 95 01/26/20 15:59 96 Intake and Output 01/27/20 01/27/20 01/27/20 06:59 14:59 22:59 Intake Total 600 Output Total 900 Balance 600 -900 Intake: IV 600 Sodium Chloride 0.9% 1, 600 000 ml @ 75 mls/hr IV . [id number] Rx#:[id number] Output: Urine 900 Other: Voiding Method Urinal # Voids 1 Results 01/27/20 06:28 01/28/20 00:06 Cardiac Enzymes 01/27/20 Range/Units 06:28 AST 53 (17-59) U/L Lactate Dehydrogenase 1728 H (313-618) U/L CBC 01/27/20 Range/Units 06:28 WBC 5.9 (3.8-10.6) k/uL RBC 4.13 L (4.30-5.90) m/uL Hgb 12.1 L (13.0-17.5) gm/dL Hct 36.3 L (39.0-53.0) % Plt Count 383 (150-450) k/uL Comprehensive Metabolic Panel 01/27/20 Range/Units 06:28 Sodium 137 (137-145) mmol/L Potassium 3.3 L (3.5-5.1) mmol/L Chloride 109 H (98-107) mmol/L Carbon Dioxide 20 L (22-30) mmol/L BUN 14 (9-20) mg/dL Creatinine 0.70 (0.66-1.25) mg/dL Glucose 123 H (74-99) mg/dL Calcium 8.1 L (8.4-10.2) mg/dL AST 53 (17-59) U/L ALT 26 (4-49) U/L Alkaline Phosphatase 67 (38-126) U/L Total Protein 5.1 L (6.3-8.2) g/dL Albumin 2.5 L (3.5-5.0) g/dL Current Medications Generic Name Dose Route Start Last Admin Trade Name Freq PRN Reason Stop Dose Admin Acetaminophen 650 mg 01/23/20 01:15 01/24/20 23:45 Tylenol Tab PO 650 mg Q4HR PRN Administration Mild Pain or Fever > 100.5 Albuterol Sulfate 2 puff 01/23/20 08:30 01/27/20 15:38 Ventolin Hfa Inhaler INHALATION 2 puff RT-QID KAYLEE Administration Doxycycline Monohydrate 100 mg 01/23/20 01:30 01/27/20 07:04 Vibramycin PO 100 mg BID KAYLEE Administration Heparin Sodium (Porcine) 5,000 unit 01/23/20 08:00 01/27/20 07:03 Heparin SQ 5,000 unit Q8HR KAYLEE Administration Sodium Chloride 1,000 mls @ 75 mls/hr 01/23/20 01:30 01/27/20 12:58 Saline 0.9% IV 75 mls/hr .[id number] KAYLEE Administration Ceftriaxone Sodium 1 gm/ 50 mls @ 100 mls/hr 01/23/20 09:00 01/27/20 07:04 Sodium Chloride IVPB 100 mls/hr Q24HR KAYLEE Administration Methylprednisolone Sodium Succinate 40 mg 01/24/20 23:15 01/27/20 07:03 Solu-Medrol IV 40 mg Q12HR KAYLEE Administration Naloxone HCl 0.2 mg 01/23/20 01:15 Narcan IV Q2M PRN Opioid Reversal Pantoprazole Sodium 40 mg 01/23/20 09:00 01/27/20 07:04 Protonix PO 40 mg [id number] KAYLEE Administration Zinc Sulfate 220 mg 01/23/20 09:00 01/27/20 07:04 Orazinc PO 220 mg DAILY KAYLEE Administration Intake and Output 01/27/20 01/27/20 01/27/20 06:59 14:59 22:59 Intake Total 600 Output Total 900 Balance 600 -900 Intake: IV 600 Sodium Chloride 0.9% 1, 600 000 ml @ 75 mls/hr IV . [id number] K[facility]E Rx#:[id number] Output: Urine 900 Other: Voiding Method Urinal # Voids 1 01/27/20 06:28 01/27/20 06:28
[2020-01-28] MEDS ORDERED: POTASSIUM CHLORIDE ER 20 MEQ TAB.ER PO SCH (08:00)
--- NOTE | 2020-01-28 09:00 | ECHOF ---
Referral Reason:arrhythmia MEASUREMENTS -------- HEIGHT: 182.9 cm WEIGHT: 93.0 kg BP: 164/85 RVIDd: 3.7 cm (< 3.3) IVSd: 1.3 cm (0.6 - 1.1) LVIDd: 4.8 cm (3.9 - 5.3) LVPWd: 1.2 cm (0.6 - 1.1) IVSs: 2.0 cm LVIDs: 3.0 cm LVPWs: 1.8 cm LA Diam: 3.9 cm (2.7 - 3.8) LAESV Index (A-L): 28.47 ml/m Ao Diam: 3.6 cm (2.0 - 3.7) AV Cusp: 2.4 cm (1.5 - 2.6) MV EXCURSION: 18.048 mm (> 18.000) MV EF SLOPE: 141 mm/s (70 - 150) EPSS: 0.7 cm MV E Anil: 0.87 m/s MV DecT: 201 ms MV A Anil: 0.79 m/s MV E/A Ratio: 1.11 RAP: 5.00 mmHg RVSP: 27.77 mmHg TAPSE: 23.43 mm FINDINGS -------- Sinus rhythm. This was a technically adequate study. The left ventricular size is normal. There is mild concentric left ventricular hypertrophy. Overa ll left ventricular systolic function is normal with, an EF between 55 - 60 %. The right ventricle is mildly enlarged. Normal LA size by volume 22+/-6 ml/m2. The right atrial size is normal. Interatrial and interventricular septum intact. There is mild aortic valve sclerosis. The mitral valve leaflets are mildly thickened. Mild mitral regurgitation is present. Mild tricuspid regurgitation present. Right ventricular systolic pressure is normal at < 35 mmHg. Trace/mild (physiologic) pulmonic regurgitation. The aortic root size is normal. Normal inferior vena cava with normal inspiratory collapse consistent with estimated right atrial pre ssure of 5 mmHg. There is no pericardial effusion. CONCLUSIONS -------- 1. There is mild concentric left ventricular hypertrophy. 2. Overall left ventricular systolic function is normal with, an EF between 55 - 60 %. 3. The right ventricle is mildly enlarged. 4. Normal LA size by volume 22+/-6 ml/m2. 5. There is mild aortic valve sclerosis. 6. The mitral valve leaflets are mildly thickened. 7. Mild mitral regurgitation is present. 8. Mild tricuspid regurgitation present. 9. Right ventricular systolic pressure is normal at < 35 mmHg. 10. Trace/mild (physiologic) pulmonic regurgitation. [employer]IC PILE HAMMER OPERATOR: Bridget Zavala RDCS
[2020-01-28] MEDS: ALBUTEROL HFA INHALER INHALATION SCH ×4 (09:10→20:21)
[2020-01-28] MEDS: methylPREDNISolone SOD SUCCI 40 MG/ML 1 ML VIAL IV SCH ×2 (09:37→20:24)
[2020-01-28] MEDS: ZINC SULFATE 220 MG CAP PO SCH (09:37)
--- NOTE | 2020-01-28 12:33 | P.PN ---
Subjective HISTORY OF PRESENTING ILLNESS This is a pleasant 64-year-old male past medical history significant for rheumatoid arthritis. He denies prior history of coronary artery disease and does not follow with a catalytic case operator for any reason. He was transferred to our hospital from [facility] secondary to Covid-19. We have asked to see him in consultation secondary to bradycardia. Telemetry tracings reviewed, no arrhythmia noted. He denies dizziness, chest pain or palpitations. Ongoing shortness of breath. Echocardiogram reveals preserved LV systolic function with EF 55-60%, mild MR and mild TR. Laboratory data reviewed, potassium 3.7. PHYSICAL EXAMINATION Blood pressure 150/76 afebrile maintaining oxygen saturation on high flow nasal cannula CONSTITUTIONAL: No apparent distress. HEENT: Head is normocephalic. Pupils are equal, round. Sclerae anicteric. Mucous membranes of the mouth are moist. No JVD. No carotid bruit. CHEST EXAMINATION: Scattered rhonchi. No wheezes or rales. No chest wall tenderness is noted on palpation or with deep breathing. HEART EXAMINATION: Regular rate and rhythm. S1, S2 heard. No murmurs, gallops or rub. EXTREMITIES: 2+ peripheral pulses, no lower extremity edema and no calf tenderness. ASSESSMENT COVID 19 Sinus bradycardia Hypokalemia Rheumatoid arthritis PLAN Consider daily small dose of potassium to keep potassium therapeutic. Continue current medical regimen. Nurse Practitioner note has been reviewed, I agree with a documented findings and plan of care. Patient was seen and examined. Objective - Vital Signs Vital signs: Vital Signs Temp 98.3 F 01/28/20 11:17 Pulse 68 01/28/20 11:17 Resp 18 01/28/20 11:17 BP 150/74 01/28/20 11:17 Pulse Ox 92 L 01/28/20 11:17 Intake & Output 01/27/20 01/28/20 01/28/20 18:59 06:59 18:59 Output Total 1800 1750 800 Balance -1800 -1750 -800 Output: Urine 1800 1750 800 Other: Voiding Method Urinal Urinal - Labs CBC & Chem 7: 01/27/20 06:28 01/28/20 06:15 Labs: Abnormal Lab Results - Last 24 Hours (Table) 01/27/20 01/27/20 Range/Units 06:28 14:58 Potassium 3.2 L (3.5-5.1) mmol/L Ferritin 1324.9 H (22.0-322.0) ng/mL
--- NOTE | 2020-01-28 12:52 | P.PN ---
Subjective Progress Note Date: 01/28/20 Principal diagnosis: Dyspnea, hypoxemia, pneumonia I was asked to evaluate this patient who is a 64-year-old male who has been diagnosed having acute covid 19 pneumonia and the patient has been progressively becoming hypoxic as the patient was on few liters about 2 by nasal cannula and subsequently dioxin fluids and she is up to 6 L and then 8 L and currently is on 10 L of oxygen by nasal cannula. The decompensation of worsening the oxygenation has occurred over the past 24 hours. At this point in time the patient is having difficulty breathing which is mild. He has a dry cough. He is sleeping in a prone body position. Seems to be making him more comfortable. While on 10 L of oxygen, is pulse oxing around 96%. His heart rate is at 59. BP is 111/67. He was having on and off low-grade fever throughout the hospitalization and his last temperature spike was 100.3 from 01/24/2020 at 8:00 in the evening. He was given doxycycline Rocephin and Plaquenil. He was placed on zinc sulfate and I also added IV Solu-Medrol 40 mg every 12 hours. The patient had a chest x-ray showing worsening bilateral pulmonary infiltrates and pneumonia compared to the original chest x-ray that was done on 01/23/2020. The blood gas today that was done on a 65% FiO2 showed a pH of 7.46 with a pCO2 of 26 and pO2 of 63 consistent with hypoxemia and respiratory alkalosis. White c ell count was suppressed at 3.1. The patient has lymphopenia with a lymphocyte count of 0.2. The patient had a pro-calcitonin level of 0.17. LDH level was 1067 at a time of admission and hasn't been rechecked.. This patient got chest her dose from [facility]. He reported diarrhea around 3 weeks ago and his been having progressive shortness of breath over the past 2-3 weeks. He denies having any body aches. He is extensively fatigued. He was in [place] for spring. He has history of rheumatoid arthritis and the patient has been taking methotrexate for many years regarding his RA On 01/26/2020 patient seen in follow-up on medical surgical floor. Is currently on 11 L per high flow oxygen, his pulse ox is 93%, he is been afebrile, hemodynamically patient is stable, non-tachycardic. Yesterday's chest x-ray has been reviewed showing worsening bilateral pneumonias, patient is on combination of doxycycline, Rocephin, hydroxy chloroquine, and IV Solu-Medrol 40 mg every 12 hours, patient is on zinc 220 mg daily, and Ventolin inhaler. Still dyspnea, but no acute distress. Follow-up labs have been reviewed today, white blood cell count is up to 5.9, hemoglobin is 12.8, sodium is 138, potassium is 3.3, yesterday's LDH was trending up, and CRP was also trending up. Pro-calcitonin was in the intermediate range of 0.17. Lung sounds reveal crackles at bilateral bases. He states although she is still short of breath he overall feels somewhat better. On 01/27/2020 patient seen in follow-up on medical surgical floor. Patient is awake and alert, his oxygenation demand did increase overnight, he is currently on 13 L per high flow nasal cannula, he is satting about 93%, however he appears to be in no acute distress, mildly dyspneic, still has a dry cough, lung sounds reveal some crackles in bilateral lungs, no rhonchi or wheezing, patient is positive for Covid 19 infection, and she remains on a regime of hydroxychloroquine, IV Solu-Medrol, Rocephin and doxycycline. Afebrile. Today's chest x-ray has been reviewed showing persistent diffuse interstitial infiltrates, improved lung volumes with some improvement in aeration of the lung bases. Continue current medical treatment, today's labs have been reviewed, d- dimer is up to 1.44, no leukocytosis, hemoglobin is 12.1, sodium is 137, potassium 3.3, chloride is 109, CO2 is 20, B1 is 14 creatinine 0.70, LDH slightly trended up to 1728, CK is 29, CRP has significantly improved and is down to 49 On 01/28/2020 patient seen in follow-up on general medical floor. He is Covid 19 positive, FiO2 is down to 11 L on today's exam, from 13 L on yesterday's exam, his pulse ox is 92%. We will to be in any acute distress, breathing is comfortable, lung sounds reveal some minimal crackles at bilateral bases, patient remains on Rocephin, azithromycin has been discontinued, and he has completed a course of Plaquenil. Afebrile in the last 24 hours. Objective - Vital Signs Vital signs: Vital Signs Temp 98.3 F 01/28/20 11:17 Pulse 68 01/28/20 11:17 Resp 18 01/28/20 11:17 BP 150/74 01/28/20 11:17 Pulse Ox 92 L 01/28/20 11:17 Intake & Output 01/27/20 01/28/20 01/28/20 18:59 06:59 18:59 Output Total 1800 1750 800 Balance -1800 -1750 -800 Output: Urine 1800 1750 800 Other: Voiding Method Urinal Urinal - Exam GENERAL EXAM: Alert, very pleasant, 64-year-old white male, on 11 L of oxygen per high flow with a pulse ox of 92%, comfortable in no apparent distress. HEAD: Normocephalic/atraumatic. EYES: Normal reaction of pupils, equal size. Conjunctiva pink, sclera white. NOSE: Clear with pink turbinates. THROAT: No erythema or exudates. NECK: No masses, no JVD, no thyroid enlargement, no adenopathy. CHEST: No chest wall deformity. Symmetrical expansion. LUNGS: Equal air entry with bibasilar crackles CVS: Regular rate and rhythm, normal S1 and S2, no gallops, no murmurs, no rubs ABDOMEN: Soft, nontender. No hepatosplenomegaly, normal bowel sounds, no guarding or rigidity. EXTREMITIES: No clubbing, no edema, no cyanosis, 2+ pulses and upper and lower extremities. MUSCULOSKELETAL: Muscle strength and tone normal. SPINE: No scoliosis or deformity SKIN: No rashes CENTRAL NERVOUS SYSTEM: Alert and oriented -3. No focal deficits, tone is normal in all 4 extremities. PSYCHIATRIC: Alert and oriented -3. Appropriate affect. Intact judgment and insight. - Labs CBC & Chem 7: 01/27/20 06:28 01/28/20 06:15 Labs: Abnormal Lab Results - Last 24 Hours (Table) 01/27/20 01/27/20 Range/Units 06:28 14:58 Potassium 3.2 L (3.5-5.1) mmol/L Ferritin 1324.9 H (22.0-322.0) ng/mL Assessment and Plan Plan: Assessment: 1 acute bilateral Covid 19 pneumonia . This is a extensive pneumonia and the patient was been immunosuppressed on methotrexate for rheumatoid arthritis. The patient's oxygenation progressively got worse over the past 48 hours and currently is on high flow oxygen at 10 L per minute nasal cannula. In addition, there is no worsening in the chest x-ray findings. 2 acute hypoxic respiratory failure with worsening in the oxygenation and the patient is currently up to 10 L of oxygen by nasal cannula. Blood gas shows hypoxic respiratory failure along with respiratory alkalosis. 3 episodic fever secondary to above 4 generalized fatigue secondary to above 5 diarrhea due to GI manifestation of Covid 19 infection, improved 6 lymphopenia secondary to Covid 19 infection 7 elevated ferritin and LDH secondary to Covid 19 infection Plan: Continue current medical treatment, patient has completed a course of Plaquenil, remains on Rocephin, he is afebrile, FiO2 is down slightly to 11 L, no worsening dyspnea, obtain follow-up chest x-ray in the morning and follow-up inflammatory markers, will continue to follow I performed a history & physical examination of the patient and discussed their management with my nurse practitioner, Vani Rowe. I reviewed the nurse practitioner's note and agree with the documented findings and plan of care. Lung sounds are positive for diffuse crackles at the bases The findings and the impression was discussed with the patient. I attest to the documentation by the nurse practitioner. Time with Patient: Less than 30
[2020-01-28] MEDS: POTASSIUM CHLORIDE ER 10 MEQ TAB.ER.PRT PO SCH (13:33)
--- NOTE | 2020-01-28 14:30 | P.PN ---
<Truid Suarez - Last Filed: 01/28/20 14:24> Subjective Progress Note Date: 01/28/20 CHIEF COMPLAINT: Covid 19 HISTORY OF PRESENT ILLNESS: 01/25/2020: Patient seen and examined at bedside. Last night patient developed labored breathing and was placed on a non-breather at 15 L. As a result a chest x-ray was ordered this morning and revealed worsening bilateral pneumonia. ABG revealed hypoxic respiratory failure with respiratory alkalosis. Pulmonary was consulted and is monitoring patient closely. 01/26/2020: Patient examined at the bedside. Patient appears short of breath upon examination. However, he denies any shortness of breath or difficulty in breat danny. He denies cough. He is on 11L nasal cannula. Oxygen saturation 92%. He is mildly tachypneic. Afebrile. 01/27/2020: Patient examined at the bedside. He is on 13L NC. Oxygen saturations 90-94%. He reports slight SOB today. Denies coughing. Patient states he has been doing awake proning over the last 24 hours. Encouraged patient to continue doing this. Chest x-ray today reveals persistent diffuse interstitial infiltrates. Improved lung volumes with some improvement in aeration at the lung bases. 01/28/2020: Patient examined at the bedside. He is down to 11L NC. Reports mild SOB. Occasional cough. Patient is afebrile. Cardiology was consulted yesterday secondary to 4 beat run of V. tach and bradycardia. No further arrhythmias noted. PHYSICAL EXAM: VITAL SIGNS: Reviewed GENERAL: Well-developed. Appears short of breath during examination. HEENT: No sclera icterus. Extraocular movements grossly intact. Moist buccal mucosa. Head is atraumatic, normocephalic. Hears conversational speech. No nasal drainage. NECK: Supple without lymphadenopathy. CHEST: Lung sounds with fine crackles to bilateral bases. Equal bilateral excursions. Appears tachypneic CARDIOVASCULAR: Regular rate with regular rhythm. Palpable pulses. ABDOMEN: Soft. Nondistended. Nontender. MUSCULOSKELETAL: No clubbing or cyanosis. NEUROLOGIC: No focal or lateralizing signs. Cranial nerves II through XII grossly intact. PSYCH: Appropriate affect. Alert and oriented to person, place and time. SKIN: Well perfused. Good skin turgor. ASSESSMENT AND PLAN: 1. Bilateral pneumonia with Covid 19 infection, acute hypoxic respiratory failure -Supportive care -Encouraged awake proning -Patient completed course of Plaquenil -Doxycycline discontinued by Dr. Espinosa. Continue Rocephin -Continue albuterol inhaler -Continue to monitor labs -Limit IV fluids -Continue contact and droplet isolation precautions -Continue zinc -Continue IV steroids per pulmonary -Wean oxygen as tolerated to maintain O2 sats greater than 92% -Pulmonary following 2. Immunocompromised secondary to methotrexate for history of rheumatoid arthritis 3. Hypokalemia -Potassium supplemented. Currently within normal limits -Continue to monitor labs -Daily potassium supplement ordered per cardiology 4. 4 beat run of V. tach -Cardiology following -Echocardiogram reveals normal ejection fraction of 55-60% -Daily potassium supplement ordered per cardiology -Continue telemetry monitoring DVT prophylaxis: Heparin subcu Discussed with: Nursing, patient Anticipated discharge: To be determined Anticipated discharge place: Home Nurse practitioner note has been reviewed by physician. Signing provider agrees with the documented findings, assessment, and plan of care. Objective - Vital Signs Vital signs: Vital Signs Temp 98.3 F 01/28/20 11:17 Pulse 68 01/28/20 11:17 Resp 18 01/28/20 11:17 BP 150/74 01/28/20 11:17 Pulse Ox 92 L 01/28/20 11:17 Intake & Output 01/27/20 01/28/20 01/28/20 18:59 06:59 18:59 Output Total 1800 1750 800 Balance -1800 -1750 -800 Output: Urine 1800 1750 800 Other: Voiding Method Urinal Urinal - Labs CBC & Chem 7: 01/27/20 06:28 01/28/20 06:15 Labs: Abnormal Lab Results - Last 24 Hours (Table) 01/27/20 01/27/20 Range/Units 06:28 14:58 Potassium 3.2 L (3.5-5.1) mmol/L Ferritin 1324.9 H (22.0-322.0) ng/mL <Adriana Blackburn - Last Filed: 01/28/20 17:16> Objective - Vital Signs Vital signs: Vital Signs Temp 98.2 F 01/28/20 15:00 Pulse 62 01/28/20 15:00 Resp 18 01/28/20 15:00 BP 179/80 01/28/20 15:00 Pulse Ox 95 01/28/20 15:00 Intake & Output 01/27/20 01/28/20 01/28/20 18:59 06:59 18:59 Intake Total 600 Output Total 1800 1750 800 Balance -1800 -1750 -200 Intake: IV 600 Sodium Chloride 0.9% 1, 600 000 ml @ 75 mls/hr IV . [id number] KAYLEE Rx#:[id number] Output: Urine 1800 1750 800 Other: Voiding Method Urinal Urinal - Labs CBC & Chem 7: 01/27/20 06:28 01/28/20 06:15 Assessment and Plan Assessment: I saw and evaluated the patient and discussed the care with [Ann-Marie Suarez ], LAUREN on [01/28/2020 ]. I agree with the subjective, assessment and plan as documented in the note above. Patient continues to require large amounts of oxygen to maintain O2 saturation greater than 92%, we will continue present management. He is low threshold for intubation. We have discussed with nursing regarding proning the patient for better oxygenation. He is also getting Albuterol inhaler as needed. His clinical status has not improved much, CXR improved yesterday, will repeat tomorrow morning. Cardiology following for sinus bradycardia as seen on telemetry. Physical exam: General: [moderatedistress], [appears at stated age] Skin: [warm], [dry] Lungs: [chest rise symmetrical], [sternal retractions], [ 3 wordconversational dyspnea] Cardiovascular: [ + dorsal pedis pulse bilateral], [capillary refill<2 seconds], [no lower extremity edema]
--- NOTE | 2020-01-28 14:48 | CDI ---
Documentation Clarification Form Date: 01/28/2020 02:00PM From: Deisy Macias RN CCDS Admit Date: 01/22/2020 09:38:00 PM Patient Name: Ephraim Adams Visit Number: [id number] Discharge Date: ATTENTION: The Clinical Documentation Specialists (CDI) and [facility] Coding Staff appreciate your assistance in clarifying documentation. Please respond to the clarification below the line at the bottom and electronically sign. The CDI & [facility] Coding staff will review the response and follow-up if needed. Please note: Queries are made part of the Legal Health Record. If you have any questions, please contact the author of this message via ITS. Dr. Adriana Shannonnam The diagnosis Sepsis in Internal Progress note 01/22, 01/23 and 01/23 but is not noted in subsequent documentation. History/Risk Factors: 64-year-old male presents as a transfer from [facility] testing positive for COVID 19. The patient has a dry cough which is getting worse and diarrhea. Medical history of RA on Methotrexate. Clinical Indicators: CXR 4/ Mixed interstitial and airspace type infiltrates noted right upper lobe, right medial lung base, left upper lobe and left medial lung base. Lung volumes are diminished. LAS 4/ Wbc 3.0, Hgb 12.9, Lymphocytes 0.3, Na 131, K 3.4, Calcium 7.9, Ferritin 530.5, Lactate Dehydrogenase 1067, C- reactive protein 121.4, Prolacitonin 0.17 Treatment: 4/3 Rocephin Ivpb Daily, Vibromycin Po Bid d/c 01/26, 0.9ns 75cc/hr 4/ Plaquenil Po Bid d/c 01/26, 4/y Azithromycin Ivpb x1 Please clarify if the Sepsis was Present/active this admission Please specify if POA or Not POA Treated and resolved this admission Please specify if POA or Not POA Ruled out Other, please specify Clinically unable to determine (Last Query Form Revision: June 2019) patient did meet sepsis criteria not POA which was treated and resolving MTDD
--- NOTE | 2020-01-29 | PN ---
PROGRESS NOTE DATE OF SERVICE: 01/28/2020 REASON FOR FOLLOWUP: Acute COVID-19 pneumonia. INTERVAL HISTORY: The patient is currently afebrile. He is breathing slightly comfortably. Denies having any chest pain. Occasional cough. No nausea, vomiting, abdominal pain. No diarrhea. PHYSICAL EXAMINATION: Blood pressure 161/75 with a pulse of 51, temperature 97.7. He is 98% on 11 L high- flow oxygen. General description is a middle-aged male lying in bed in no distress. RESPIRATORY SYSTEM: Unlabored breathing with decreased intensity of breath sounds. No wheeze. HEART: S1, S2. Regular rate and rhythm. ABDOMEN: Soft. No tenderness. LABS: No new labs have been obtained today. DIAGNOSTIC IMPRESSION AND PLAN: Patient with acute COVID-19 pneumonia. The patient should be kept in negative fluid balance; hence IV fluid should be Hep-locked. Chest x-ray will be repeated. Patient to continue with Solu-Medrol , has completed his Plaquenil therapy. Continue with supportive care. MMODL / IJN: [id number] / LUIS ALFREDO
[2020-01-29] MEDS: PANTOPRAZOLE 40 MG TABLET PO SCH (07:17)
[2020-01-29] MEDS: ZINC SULFATE 220 MG CAP PO SCH (07:17)
[2020-01-29] MEDS: POTASSIUM CHLORIDE ER 10 MEQ TAB.ER.PRT PO SCH (07:17)
[2020-01-29] MEDS: HEPARIN SODIUM,PORCINE 5,000 UNIT/ML 1 ML VIAL SQ SCH ×2 (07:18→17:03)
[2020-01-29] MEDS: methylPREDNISolone SOD SUCCI 40 MG/ML 1 ML VIAL IV SCH ×2 (07:18→20:45)
[2020-01-29] MEDS: ALBUTEROL HFA INHALER INHALATION SCH ×4 (07:47→19:53)
[2020-01-29 08:38] LABS: Basophils % (A) 0 %; Eosinophils % (A) 0 %; HCT 40.3 % (39.0-53.0); HGB 13.3 gm/dL (13.0-17.5); Lymphocytes # (A) 0.6 k/uL (1.0-4.8); Lymphocytes % (A) 9 %; MCH 29.1 pg (25.0-35.0); MCHC 32.9 g/dL (31.0-37.0); MCV 88.4 fL (80.0-100.0); Mean Platelet Volume 8.5; Monocytes # (A) 0.1 k/uL (0-1.0); Monocytes % (A) 2 %; Neutrophils # (A) 5.8 k/uL (1.3-7.7); Neutrophils % (A) 86 %; Platelet Count 354 k/uL (150-450); RBC 4.56 m/uL (4.30-5.90); RDW 14.3 % (11.5-15.5); WBC 6.7 k/uL (3.8-10.6)
--- NOTE | 2020-01-29 08:40 | XR ---
EXAMINATION TYPE: XR chest 1V portable DATE OF EXAM: 01/29/2020 COMPARISON: 01/27/2020 INDICATION: Covid 19 TECHNIQUE: Single frontal view of the chest is obtained. FINDINGS: The heart size is normal. The pulmonary vasculature is distinct. There is diffuse increased lung markings present bilaterally. This is more focal in the periphery of the right lower lung field and at the left base. These areas are slightly progressive from comparison . IMPRESSION: 1. Progressive increase lung markings right periphery of the left lower lobe with additional views in filtrates throughout the bilateral lung lynne
[2020-01-29 08:43] LABS: ALT 65 U/L (4-49); AST 56 U/L (17-59); African American GFR (CKD) >90 (>60 ml/min/1.73 sqM); Albumin 2.7 g/dL (3.5-5.0); Alkaline Phosphatase 102 U/L (38-126); Anion Gap 9 mmol/L; Blood Urea Nitrogen 21 mg/dL (9-20); Calcium 8.2 mg/dL (8.4-10.2); Carbon Dioxide 26 mmol/L (22-30); Chloride 104 mmol/L (98-107); Creatine Kinase <20 U/L (55-170); Glucose 124 mg/dL (74-99); LDH 2066 U/L (313-618); Non-African American GFR(CKD) >90 (>60 ml/min/1.73 sqM); Potassium 3.6 mmol/L (3.5-5.1); Sodium 139 mmol/L (137-145); Total Bilirubin 1.2 mg/dL (0.2-1.3); Total Protein 5.5 g/dL (6.3-8.2)
[2020-01-29 10:02] LABS: ABG Base Excess 2.1 mmol/L; ABG HCO3 25 mmol/L (21-25); ABG Oxygen Saturation 93.2 % (94-97); ABG PCO2 31 mmHg (35-45); ABG PH 7.52 (7.35-7.45); ABG PO2 64 mmHg (83-108); ABG TCO2 26 mmol/L (19-24); Allen Test Performed? Yes
[2020-01-29 11:07] LABS: Glucose,Whole Blood 129 mg/dL (75-99)
[2020-01-29] MEDS ORDERED: ATROPINE SULFATE 0.1 MG/ML 10ML SYRINGE ONE (11:14)
--- NOTE | 2020-01-29 12:23 | P.PN ---
Subjective HISTORY OF PRESENTING ILLNESS This is a pleasant 64-year-old male past medical history significant for rheumatoid arthritis. He denies prior history of coronary artery disease and does not follow with a senior label specialist for any reason. We are following secondary to bradycardia. Chart reviewed, no physical contact with the patient. Telemetry tracings reviewed for the previous 24 hrs reveal sinus mechanism. He has no complaints of chest pain, dizziness or palpitations. His breathing is becoming worse per nursing staff and he is requiring more oxygen. Pulmonary following. Blood pressure 140/77 heart rate 58 requiring high flow oxygen to maintain saturations. Laboratory data reviewed, sodium 139, potassium 3.6, creatinine 0.74, CRP 47. ASSESSMENT COVID 19 Sinus bradycardia Hypokalemia Rheumatoid arthritis PLAN Continue current medical regimen. Nurse Practitioner note has been reviewed, I agree with a documented findings and plan of care. Patient was seen and examined. Objective - Vital Signs Vital signs: Vital Signs Temp 98 F 01/29/20 07:00 Pulse 58 L 01/29/20 07:00 Resp 27 H 01/29/20 09:05 BP 140/77 01/29/20 07:00 Pulse Ox 95 01/29/20 09:05 Intake & Output 01/28/20 01/29/20 01/29/20 18:59 06:59 18:59 Intake Total 600 118 Output Total 800 2150 Balance -200 -2150 118 Weight 93 kg Intake: IV 600 Sodium Chloride 0.9% 1, 600 000 ml @ 75 mls/hr IV . [id number] KAYLEE Rx#:[id number] Oral 118 Output: Urine 800 2150 Other: Voiding Method Urinal Urinal Urinal # Voids 1 - Labs CBC & Chem 7: 01/29/20 07:48 01/29/20 07:48 Labs: Abnormal Lab Results - Last 24 Hours (Table) 01/29/20 01/29/20 01/29/20 Range/Units 07:48 07:48 07:48 Lymphocytes # 0.6 L (1.0-4.8) k/uL D-Dimer 2.30 H (<0.60) mg/L FEU ABG pH (7.35-7.45) ABG pCO2 (35-45) mmHg ABG pO2 (83-108) mmHg ABG Total CO2 (19-24) mmol/L ABG O2 Saturation (94-97) % BUN 21 H (9-20) mg/dL Glucose 124 H (74-99) mg/dL POC Glucose (mg/dL) (75-99) mg/dL Calcium 8.2 L (8.4-10.2) mg/dL ALT 65 H (4-49) U/L Lactate Dehydrogenase 2066 H (313-618) U/L Creatine Kinase <20 L (55-170) U/L C-Reactive Protein 47.0 H (<10.0) mg/L Total Protein 5.5 L (6.3-8.2) g/dL Albumin 2.7 L (3.5-5.0) g/dL 01/29/20 01/29/20 Range/Units 09:54 11:05 Lymphocytes # (1.0-4.8) k/uL D-Dimer (<0.60) mg/L FEU ABG pH 7.52 H (7.35-7.45) ABG pCO2 31 L (35-45) mmHg ABG pO2 64 L (83-108) mmHg ABG Total CO2 26 H (19-24) mmol/L ABG O2 Saturation 93.2 L (94-97) % BUN (9-20) mg/dL Glucose (74-99) mg/dL POC Glucose (mg/dL) 129 H (75-99) mg/dL Calcium (8.4-10.2) mg/dL ALT (4-49) U/L Lactate Dehydrogenase (313-618) U/L Creatine Kinase (55-170) U/L C-Reactive Protein (<10.0) mg/L Total Protein (6.3-8.2) g/dL Albumin (3.5-5.0) g/dL
--- NOTE | 2020-01-29 13:32 | P.PN ---
<Trudi Suarez Laura - Last Filed: 01/29/20 13:24> Subjective Progress Note Date: 01/29/20 CHIEF COMPLAINT: Covid 19 HISTORY OF PRESENT ILLNESS: 01/25/2020: Patient seen and examined at bedside. Last night patient developed labored breathing and was placed on a non-breather at 15 L. As a result a chest x-ray was ordered this morning and revealed worsening bilateral pneumonia. ABG revealed hypoxic respiratory failure with respiratory alkalosis. Pulmonary was consulted and is monitoring patient closely. 01/26/2020: Patient examined at the bedside. Patient appears short of breath upon examination. However, he denies any shortness of breath or difficulty in breat danny. He denies cough. He is on 11L nasal cannula. Oxygen saturation 92%. He is mildly tachypneic. Afebrile. 01/27/2020: Patient examined at the bedside. He is on 13L NC. Oxygen saturations 90-94%. He reports slight SOB today. Denies coughing. Patient states he has been doing awake proning over the last 24 hours. Encouraged patient to continue doing this. Chest x-ray today reveals persistent diffuse interstitial infiltrates. Improved lung volumes with some improvement in aeration at the lung bases. 01/28/2020: Patient examined at the bedside. He is down to 11L NC. Reports mild SOB. Occasional cough. Patient is afebrile. Cardiology was consulted yesterday secondary to 4 beat run of V. tach and bradycardia. No further arrhythmias noted. 01/29/2020: Patient examined this morning at the bedside. Patient was increased to 13 L nasal cannula this morning. He was oxygenating in the high 80s. Patient's oxygen was increased to 15 L nasal cannula. He was placed in the prone position. His oxygen saturations did come up into the low 90s. Patient noted to be dropping back into the 80s with repositioning. He reports SOB. He appears more fatigued and worn out today. He remains tachypneic. Chest x-ray this morning reveals progressive increased lung markings right periphery of the left lower lobe with additional views infiltrates are at the bilateral lung lynne. D-dimer 2.30. Potassium 3.6. LDH 2065. Creatinine kinase less than 20. C-reactive protein 47. PHYSICAL EXAM: VITAL SIGNS: Reviewed GENERAL: Well-developed. Appears short of breath during examination. HEENT: No sclera icterus. Extraocular movements grossly intact. Moist buccal mucosa. Head is atraumatic, normocephalic. Hears conversational speech. No nasal drainage. NECK: Supple without lymphadenopathy. CHEST: Lung sounds with crackles to bilateral bases. Equal bilateral excurs ions. Appears tachypneic CARDIOVASCULAR: Regular rate with regular rhythm. Palpable pulses. ABDOMEN: Soft. Nondistended. Nontender. MUSCULOSKELETAL: No clubbing or cyanosis. NEUROLOGIC: No focal or lateralizing signs. Cranial nerves II through XII grossly intact. PSYCH: Appropriate affect. Alert and oriented to person, place and time. SKIN: Well perfused. Good skin turgor. ASSESSMENT AND PLAN: 1. Bilateral pneumonia with Covid 19 infection, acute hypoxic respiratory failure -Supportive care -Encouraged awake proning -Patient completed course of Plaquenil -Doxycycline discontinued by Dr. Espinosa. Continue Rocephin -Continue albuterol inhaler -Continue to monitor labs -Limit IV fluids -Continue contact and droplet isolation precautions -Continue zinc -Continue IV steroids per pulmonary -Wean oxygen as tolerated to maintain O2 sats greater than 92% -Pulmonary following 2. Immunocompromised secondary to methotrexate for history of rheumatoid arthritis 3. Hypokalemia -Potassium supplemented. Currently within normal limits -Continue to monitor labs -Daily potassium supplement ordered per cardiology 4. 4 beat run of V. tach -Cardiology following -Echocardiogram reveals normal ejection fraction of 55-60% -Daily potassium supplement ordered per cardiology -Continue telemetry monitoring Case discussed with DASHAWN Ludwig with pulmonary. Patient will be transferred to the ICU for closer monitoring. DVT prophylaxis: Heparin subcu Discussed with: Nursing, patient, pulmonary [employer]TER Anticipated discharge: To be determined Anticipated discharge place: Home Nurse practitioner note has been reviewed by physician. Signing provider agrees with the documented findings, assessment, and plan of care. Objective - Vital Signs Vital signs: Vital Signs Temp 98 F 01/29/20 07:00 Pulse 58 L 01/29/20 07:00 Resp 27 H 01/29/20 09:05 BP 140/77 01/29/20 07:00 Pulse Ox 95 01/29/20 09:05 Intake & Output 01/28/20 01/29/20 01/29/20 18:59 06:59 18:59 Intake Total 600 118 Output Total 800 2150 Balance -200 -2150 118 Weight 93 kg Intake: IV 600 Sodium Chloride 0.9% 1, 600 000 ml @ 75 mls/hr IV . [id number] [facility] Rx#:[id number] Oral 118 Output: Urine 800 2150 Other: Voiding Method Urinal Urinal Urinal # Voids 1 - Labs CBC & Chem 7: 01/29/20 07:48 01/29/20 07:48 Labs: Abnormal Lab Results - Last 24 Hours (Table) 01/29/20 01/29/20 01/29/20 Range/Units 07:48 07:48 07:48 Lymphocytes # 0.6 L (1.0-4.8) k/uL D-Dimer 2.30 H (<0.60) mg/L FEU ABG pH (7.35-7.45) ABG pCO2 (35-45) mmHg ABG pO2 (83-108) mmHg ABG Total CO2 (19-24) mmol/L ABG O2 Saturation (94-97) % BUN 21 H (9-20) mg/dL Glucose 124 H (74-99) mg/dL POC Glucose (mg/dL) (75-99) mg/dL Calcium 8.2 L (8.4-10.2) mg/dL ALT 65 H (4-49) U/L Lactate Dehydrogenase 2066 H (313-618) U/L Creatine Kinase <20 L (55-170) U/L C-Reactive Protein 47.0 H (<10.0) mg/L Total Protein 5.5 L (6.3-8.2) g/dL Albumin 2.7 L (3.5-5.0) g/dL 01/29/20 01/29/20 Range/Units 09:54 11:05 Lymphocytes # (1.0-4.8) k/uL D-Dimer (<0.60) mg/L FEU ABG pH 7.52 H (7.35-7.45) ABG pCO2 31 L (35-45) mmHg ABG pO2 64 L (83-108) mmHg ABG Total CO2 26 H (19-24) mmol/L ABG O2 Saturation 93.2 L (94-97) % BUN (9-20) mg/dL Glucose (74-99) mg/dL POC Glucose (mg/dL) 129 H (75-99) mg/dL Calcium (8.4-10.2) mg/dL ALT (4-49) U/L Lactate Dehydrogenase (313-618) U/L Creatine Kinase (55-170) U/L C-Reactive Protein (<10.0) mg/L Total Protein (6.3-8.2) g/dL Albumin (3.5-5.0) g/dL <Adriana Blackburn - Last Filed: 01/29/20 17:14> Objective - Vital Signs Vital signs: Vital Signs Temp 98 F 01/29/20 07:00 Pulse 58 L 01/29/20 07:00 Resp 27 H 01/29/20 09:05 BP 140/77 01/29/20 07:00 Pulse Ox 95 01/29/20 09:05 Intake & Output 01/28/20 01/29/20 01/29/20 18:59 06:59 18:59 Intake Total 600 318 Output Total 800 2150 800 Balance -200 -2150 -482 Weight 93 kg Intake: IV 600 Sodium Chloride 0.9% 1, 600 000 ml @ 75 mls/hr IV . [id number] [facility] Rx#:[id number] Oral 318 Output: Urine 800 2150 800 Other: Voiding Method Urinal Urinal Urinal # Voids 1 1 - Labs CBC & Chem 7: 01/29/20 07:48 01/29/20 07:48 Labs: Abnormal Lab Results - Last 24 Hours (Table) 01/29/20 01/29/20 01/29/20 Range/Units 07:48 07:48 07:48 Lymphocytes # 0.6 L (1.0-4.8) k/uL D-Dimer 2.30 H (<0.60) mg/L FEU ABG pH (7.35-7.45) ABG pCO2 (35-45) mmHg ABG pO2 (83-108) mmHg ABG Total CO2 (19-24) mmol/L ABG O2 Saturation (94-97) % BUN 21 H (9-20) mg/dL Glucose 124 H (74-99) mg/dL POC Glucose (mg/dL) (75-99) mg/dL Calcium 8.2 L (8.4-10.2) mg/dL Ferritin 1384.7 H (22.0-322.0) ng/mL ALT 65 H (4-49) U/L Lactate Dehydrogenase 2066 H (313-618) U/L Creatine Kinase <20 L (55-170) U/L C-Reactive Protein 47.0 H (<10.0) mg/L Total Protein 5.5 L (6.3-8.2) g/dL Albumin 2.7 L (3.5-5.0) g/dL 01/29/20 01/29/20 Range/Units 09:54 11:05 Lymphocytes # (1.0-4.8) k/uL D-Dimer (<0.60) mg/L FEU ABG pH 7.52 H (7.35-7.45) ABG pCO2 31 L (35-45) mmHg ABG pO2 64 L (83-108) mmHg ABG Total CO2 26 H (19-24) mmol/L ABG O2 Saturation 93.2 L (94-97) % BUN (9-20) mg/dL Glucose (74-99) mg/dL POC Glucose (mg/dL) 129 H (75-99) mg/dL Calcium (8.4-10.2) mg/dL Ferritin (22.0-322.0) ng/mL ALT (4-49) U/L Lactate Dehydrogenase (313-618) U/L Creatine Kinase (55-170) U/L C-Reactive Protein (<10.0) mg/L Total Protein (6.3-8.2) g/dL Albumin (3.5-5.0) g/dL Assessment and Plan Assessment: I saw and evaluated the patient and discussed the care with [Ann-Marie Suarez ], LAUREN on [01/29/2020 ]. I agree with the subjective, assessment and plan as documented in the note above. Patient continues to require large amounts of oxygen to maintain O2 saturation greater than 92%, we will continue present management. He is low threshold for intubation. We have discussed with nursing regarding proning the patient for better oxygenation. He is also getting Albuterol inhaler as needed. His clinical status has not improved much, CXR worsening. Pulmonology saw the patient today and he has been moved up to ICU for closer monitoring. Prognosis is extremely guarded at this time. Physical exam: General: [moderatedistress], [appears at stated age] Skin: [warm], [dry] Lungs: [chest rise symmetrical], [sternal retractions], [ 3 wordconversational dyspnea] Cardiovascular: [ + dorsal pedis pulse bilateral], [capillary refill<2 seconds], [no lower extremity edema]
--- NOTE | 2020-01-29 13:49 | P.PN ---
Subjective Progress Note Date: 01/29/20 Principal diagnosis: acute covid 19 pneumonitis was asked to evaluate this patient who is a 64-year-old male who has been diagnosed having acute covid 19 pneumonia and the patient has been progressively becoming hypoxic as the patient was on few liters about 2 by nasal cannula and subsequently dioxin fluids and she is up to 6 L and then 8 L and currently is on 10 L of oxygen by nasal cannula. The decompensation of worsening the oxygenation has occurred over the past 24 hours. At this point in time the patient is having difficulty breathing which is mild. He has a dry cough. He is sleeping in a prone body position. Seems to be making him more comfortable. While on 10 L of oxygen, is pulse oxing around 96%. His heart rate is at 59. BP is 111/67. He was having on and off low-grade fever throughout the hospitalization and his last temperature spike was 100.3 from 01/24/2020 at 8:00 in the evening. He was given doxycycline Rocephin and Plaquenil. He was placed on zinc sulfate and I also added IV Solu-Medrol 40 mg every 12 hours. The patient had a chest x-ray showing worsening bilateral pulmonary infiltrates and pneumonia compared to the original chest x-ray that was done on 01/23/2020. The blood gas today that was done on a 65% FiO2 showed a pH of 7.46 with a pCO2 of 26 and pO2 of 63 consistent with hypoxemia and respiratory alkalosis. White cell count was suppressed at 3.1. The patient has lymphopenia with a lymphocyte count of 0.2. The patient had a pro-calcitonin level of 0.17. LDH level was 1067 at a time of admission and hasn't been rechecked.. This patient got chest her dose from [facility]. He reported diarrhea around 3 weeks ago and his been having progressive shortness of breath over the past 2-3 weeks. He denies having any body aches. He is extensively fatigued. He was in [place] for spring. He has history of rheumatoid arthritis and the patient has been taking methotrexate for many years regarding his RA On 01/26/2020 patient seen in follow-up on medical surgical floor. Is currently on 11 L per high flow oxygen, his pulse ox is 93%, he is been afebrile, hemodynamically patient is stable, non-tachycardic. Yesterday's chest x-ray has been reviewed showing worsening bilateral pneumonias, patient is on combination of doxycycline, Rocephin, hydroxy chloroquine, and IV Solu-Medrol 40 mg every 12 hours, patient is on zinc 220 mg daily, and Ventolin inhaler. Still dyspnea, but no acute distress. Follow-up labs have been reviewed today, white blood cell count is up to 5.9, hemoglobin is 12.8, sodium is 138, potassium is 3.3, yesterday's LDH was trending up, and CRP was also trending up. Pro-calcitonin was in the intermediate range of 0.17. Lung sounds reveal crackles at bilateral bases. He states although she is still short of breath he overall feels somewhat better. On 01/27/2020 patient seen in follow-up on medical surgical floor. Patient is awake and alert, his oxygenation demand did increase overnight, he is currently on 13 L per high flow nasal cannula, he is satting about 93%, however he appears to be in no acute distress, mildly dyspneic, still has a dry cough, lung sounds reveal some crackles in bilateral lungs, no rhonchi or wheezing, patient is positive for Covid 19 infection, and she remains on a regime of hydroxychloroquine, IV Solu-Medrol, Rocephin and doxycycline. Afebrile. Today's chest x-ray has been reviewed showing persistent diffuse interstitial infiltrates, improved lung volumes with some improvement in aeration of the lung bases. Continue current medical treatment, today's labs have been reviewed, d- dimer is up to 1.44, no leukocytosis, hemoglobin is 12.1, sodium is 137, potassium 3.3, chloride is 109, CO2 is 20, B1 is 14 creatinine 0.70, LDH slightly trended up to 1728, CK is 29, CRP has significantly improved and is down to 49 On 01/28/2020 patient seen in follow-up on general medical floor. He is Covid 19 positive, FiO2 is down to 11 L on today's exam, from 13 L on yesterday's exam, his pulse ox is 92%. We will to be in any acute distress, breathing is comfortable, lung sounds reveal some minimal crackles at bilateral bases, patient remains on Rocephin, azithromycin has been discontinued, and he has completed a course of Plaquenil. Afebrile in the last 24 hours. Patient was reevaluated today on 01/29/20, he was seen on the regular medical floor, and he is on high flow nasal cannula at 13 L/m, O2 saturation is marginal anywhere between 90-94% at best patient has shortness of breath, but does not seem to be in distress. He is breathing very comfortably. His chest x-ray showed slight worsening. Crackles at the bases bilaterally noted. After evaluating the patient, and considering that his O2 saturation has been fluctuating between 84 and 95%, I recommended observing the patient in the ICU, and I transferred the patient to the ICU. ABG on high flow nasal cannula showed a pO2 of 64 he CO2 of 31 pH of 7.52. His d-dimer is 2.30. CBC is normal basic metabolic profile is normal however his LDH is 2066. C-reactive protein is 47. Objective - Vital Signs Vital signs: Vital Signs Temp 98 F 01/29/20 07:00 Pulse 58 L 01/29/20 07:00 Resp 27 H 01/29/20 09:05 BP 140/77 01/29/20 07:00 Pulse Ox 95 01/29/20 09:05 Intake & Output 01/28/20 01/29/20 01/29/20 18:59 06:59 18:59 Intake Total 600 318 Output Total 800 2150 800 Balance -200 -2150 -482 Weight 93 kg Intake: IV 600 Sodium Chloride 0.9% 1, 600 000 ml @ 75 mls/hr IV . [id number] [facility] Rx#:[id number] Oral 318 Output: Urine 800 2150 800 Other: Voiding Method Urinal Urinal Urinal # Voids 1 1 - Exam GENERAL EXAM: Alert, very pleasant, 64-year-old white male, on 13 L high flow Nasal HEENT: PERRLA, EOMI, no active, dry mucous membranes, no neck masses, no JVD, no stridor. CHEST: No chest wall deformity. Symmetrical expansion. LUNGS: Fine basilar crackles throughout. CVS: Regular rate and rhythm, normal S1 and S2, no gallops, no murmurs, no rubs ABDOMEN: Soft, nontender. No hepatosplenomegaly, normal bowel sounds, no guarding or rigidity. EXTREMITIES: No clubbing, no edema, no cyanosis, 2+ pulses and upper and lower extremities. MUSCULOSKELETAL: Muscle strength and tone normal. SKIN: No rashes CENTRAL NERVOUS SYSTEM: Alert and oriented 3 no gross focal deficits. PSYCHIATRIC: Normal mood, affect and normal mental status examination - Labs CBC & Chem 7: 01/29/20 07:48 01/29/20 07:48 Labs: Abnormal Lab Results - Last 24 Hours (Table) 01/29/20 01/29/20 01/29/20 Range/Units 07:48 07:48 07:48 Lymphocytes # 0.6 L (1.0-4.8) k/uL D-Dimer 2.30 H (<0.60) mg/L FEU ABG pH (7.35-7.45) ABG pCO2 (35-45) mmHg ABG pO2 (83-108) mmHg ABG Total CO2 (19-24) mmol/L ABG O2 Saturation (94-97) % BUN 21 H (9-20) mg/dL Glucose 124 H (74-99) mg/dL POC Glucose (mg/dL) (75-99) mg/dL Calcium 8.2 L (8.4-10.2) mg/dL ALT 65 H (4-49) U/L Lactate Dehydrogenase 2066 H (313-618) U/L Creatine Kinase <20 L (55-170) U/L C-Reactive Protein 47.0 H (<10.0) mg/L Total Protein 5.5 L (6.3-8.2) g/dL Albumin 2.7 L (3.5-5.0) g/dL 01/29/20 01/29/20 Range/Units 09:54 11:05 Lymphocytes # (1.0-4.8) k/uL D-Dimer (<0.60) mg/L FEU ABG pH 7.52 H (7.35-7.45) ABG pCO2 31 L (35-45) mmHg ABG pO2 64 L (83-108) mmHg ABG Total CO2 26 H (19-24) mmol/L ABG O2 Saturation 93.2 L (94-97) % BUN (9-20) mg/dL Glucose (74-99) mg/dL POC Glucose (mg/dL) 129 H (75-99) mg/dL Calcium (8.4-10.2) mg/dL ALT (4-49) U/L Lactate Dehydrogenase (313-618) U/L Creatine Kinase (55-170) U/L C-Reactive Protein (<10.0) mg/L Total Protein (6.3-8.2) g/dL Albumin (3.5-5.0) g/dL Assessment and Plan Assessment: 1 acute covid 19 pneumonitis. 2 acute hypoxic respiratory failure secondary to above. 3 episodic fever secondary to above 4 generalized fatigue secondary to above 5 diarrhea due to GI manifestation of Covid 19 infection, improved 6 lymphopenia secondary to Covid 19 infection Recommendation: Continue present supportive care measures. Continue protocol. For treatment of his pneumonitis. Considering the patient's marginal pulmonary status, and considering his chest x-ray findings, will transfer the patient to the ICU, and we will monitor closely. If his condition deteriorates, will arrange for intubation mechanical ventilation. We'll continue to follow. Time with Patient: Less than 30
[2020-01-29] MEDS ORDERED: TOCILIZUMAB 400 MG in SODIUM CHLORIDE 0.9% 80 ML IV ONE (15:00)
[2020-01-29 16:52] LABS: Ferritin 1384.7 ng/mL (22.0-322.0)
[2020-01-29] MEDS: ACETAMINOPHEN TAB 325 MG TAB PO PRN (22:34)
--- NOTE | 2020-01-29 22:35 | PN ---
PROGRESS NOTE DATE OF SERVICE: 01/29/2020. REASON FOR FOLLOWUP: Acute COVID-19 pneumonia. INTERVAL HISTORY: The patient is currently afebrile. The patient has been transferred up to ICU because he is requiring high-flow oxygen, currently on 100% non-rebreather. Denies having any chest pain. Occasional cough. No abdominal pain or diarrhea. PHYSICAL EXAMINATION: Blood pressure 122/71 with a pulse of 59, temperature 98.4. He is 90% on non- rebreather. General description is a middle-aged male lying in bed in no distress. RESPIRATORY SYSTEM: Unlabored breathing with decreased intensity of breath sounds. No wheeze. HEART: S1, S2. Regular rate and rhythm. ABDOMEN: Soft. No tenderness. EXTREMITIES: No edema of the feet. LABS/IMAGING: Hemoglobin 13.3 with a white count of 6.7, BUN of 21, creatinine 0.74. Electrolytes have been normal. Ferritin is elevated 1384. LDH has gone up to 2066 from initial reading of 1067. CRP of 47. Chest x-ray did show progressive increased lung markings, right periphery, lower lobe. DIAGNOSTIC IMPRESSION AND PLAN: Patient with acute COVID-19 pneumonia in this patient who did have impending respiratory failure, likely multifactorial Actemra was ordered; unfortunately cancelled by pharmacist for not meeting their criteria, though this is the point at which the patient should receive it to prevent going on the vent and worsening respiratory failure. The patient is on zinc, Solu-Medrol and has completed his 5-day course of Plaquenil therapy. Overall prognosis remains guarded. MMODL / IJN: [id number] / [facility]PITALAnjel
[2020-01-29] MEDS ORDERED: SUCCINYLCHOLINE CHLORIDE VIAL 200 MG/10 ML VIAL IV ONE (23:20)
[2020-01-29] MEDS ORDERED: KETAMINE 10 MG/ML 20 ML VIAL ONE (23:20)
[2020-01-29] MEDS: PROPOFOL 1,000 MG in EMPTY BAG 1 BAG IV SCH (23:40)
--- NOTE | 2020-01-29 23:50 | XR ---
EXAMINATION TYPE: XR chest 1V portable DATE OF EXAM: 01/29/2020 HISTORY: Shortness of breath. COMPARISON: 01/29/2020 TECHNIQUE: Single view of the chest is submitted. FINDINGS: Interval placement of endotracheal tube which is appropriately placed. NG tube is seen coursing towar ds the stomach. Progressive mixed interstitial and alveolar infiltrates throughout both lung lynne. The heart is stable. Hilar and mediastinal structures are within normal limits. Degenerative changes are seen of the dorsal spine. IMPRESSION: 1. Progressive mixed interstitial and alveolar infiltrates throughout both lung lynne. Endotracheal tube and NG tube as noted.
[2020-01-30] MEDS ORDERED: CISATRACURIUM 2 MG/ML 5 ML VIAL IV ONE (00:02)
[2020-01-30 00:20] LABS: ABG Base Excess 0.8 mmol/L; ABG HCO3 26 mmol/L (21-25); ABG Oxygen Saturation 96.7 % (94-97); ABG PCO2 41 mmHg (35-45); ABG PO2 96 mmHg (83-108); ABG TCO2 27 mmol/L (19-24); Allen Test Performed? Yes
[2020-01-30] MEDS: fentaNYL (PF) 2,500 MCG in SODIUM CHLORIDE 0.9% 200 ML IV SCH (00:30)
[2020-01-30] MEDS: CISATRACURIUM 200 MG in SODIUM CHLORIDE 0.9% 180 ML IV SCH ×2 (00:33→15:45)
[2020-01-30] MEDS: PROPOFOL 1,000 MG in EMPTY BAG 1 BAG IV SCH ×7 (00:34→22:56)
[2020-01-30] MEDS: HEPARIN SODIUM,PORCINE 5,000 UNIT/ML 1 ML VIAL SQ SCH ×2 (01:00→08:33)
[2020-01-30] MEDS: SODIUM CHLORIDE 0.9% 1,000 ML IV SCH ×2 (03:02→20:18)
[2020-01-30 03:15] LABS: Appearance,Urine Clear (Clear); Bilirubin,Urine Negative (Negative); Blood,Urine Negative (Negative); Color,Urine Yellow; Glucose,Urine (UA) Negative (Negative); Hyaline Casts,Urine 1 /lpf (0-2); Ketones,Urine Negative (Negative); Leukocyte Esterase,Urine Negative (Negative); Mucus,Urine Rare /hpf; Nitrite,Urine Negative (Negative); Protein,Urine 1+ (Negative); RBC,Urine <1 /hpf (0-5); Specific Gravity,Urine 1.023 (1.001-1.035); Urobilinogen,Urine <2.0 mg/dL (<2.0); WBC,Urine 6 /hpf (0-5)
[2020-01-30] MEDS: ARTIFICIAL TEARS-HYPROMELLOSE DROPS 15 ML BTL BOTH EYES SCH ×5 (03:50→20:18)
[2020-01-30 04:33] LABS: Basophils % (A) 0 %; Eosinophils % (A) 0 %; HCT 42.7 % (39.0-53.0); HGB 13.6 gm/dL (13.0-17.5); Lymphocytes # (A) 0.5 k/uL (1.0-4.8); Lymphocytes % (A) 5 %; MCH 29.3 pg (25.0-35.0); MCV 91.7 fL (80.0-100.0); Mean Platelet Volume 8.1; Monocytes # (A) 0.2 k/uL (0-1.0); Monocytes % (A) 2 %; Neutrophils # (A) 9.1 k/uL (1.3-7.7); Neutrophils % (A) 92 %; Platelet Count 420 k/uL (150-450); RBC 4.65 m/uL (4.30-5.90); RDW 14.4 % (11.5-15.5); WBC 9.9 k/uL (3.8-10.6)
[2020-01-30 04:41] LABS: ALT 85 U/L (4-49); AST 95 U/L (17-59); African American GFR (CKD) >90 (>60 ml/min/1.73 sqM); Albumin 2.8 g/dL (3.5-5.0); Alkaline Phosphatase 116 U/L (38-126); Anion Gap 4 mmol/L; Blood Urea Nitrogen 29 mg/dL (9-20); Calcium 8.3 mg/dL (8.4-10.2); Carbon Dioxide 30 mmol/L (22-30); Chloride 103 mmol/L (98-107); Glucose 178 mg/dL (74-99); Non-African American GFR(CKD) >90 (>60 ml/min/1.73 sqM); Potassium 4.3 mmol/L (3.5-5.1); Sodium 137 mmol/L (137-145); Total Bilirubin 1.9 mg/dL (0.2-1.3); Total Protein 5.5 g/dL (6.3-8.2)
[2020-01-30 07:52] LABS: C Reactive Protein 47.4 mg/L (<10.0)
[2020-01-30] MEDS: ALBUTEROL HFA INHALER INHALATION SCH ×4 (08:04→21:05)
[2020-01-30 08:07] LABS: ABG Base Excess -0.4 mmol/L; ABG HCO3 29 mmol/L (21-25); ABG Oxygen Saturation 96.5 % (94-97); ABG PO2 116 mmHg (83-108); ABG TCO2 32 mmol/L (19-24); Allen Test Performed? Yes
[2020-01-30 08:11] LABS: ABG PCO2 88 mmHg (35-45); ABG PH 7.13 (7.35-7.45)
[2020-01-30] MEDS: ZINC SULFATE 220 MG CAP PO SCH (08:33)
[2020-01-30] MEDS: methylPREDNISolone SOD SUCCI 40 MG/ML 1 ML VIAL IV SCH ×2 (08:33→20:17)
[2020-01-30] MEDS: PANTOPRAZOLE 40 MG TABLET PO SCH (08:33)
[2020-01-30] MEDS: CHLORHEXIDINE GLUCONATE 15 ML CUP MUCOUS MEM SCH ×2 (08:33→20:17)
[2020-01-30] MEDS: POTASSIUM CHLORIDE ER 10 MEQ TAB.ER.PRT PO SCH (08:34)
--- NOTE | 2020-01-30 08:53 | PN ---
PROGRESS NOTE Mr. Adams developed worsening respiratory status, was transferred to ICU yesterday and then intubated. His chest x-ray reveals bilateral infiltrates. It is suggestive of an early ARDS type picture. He is COVID positive. The initial consult was for bradycardia, but patient is now somewhat tachycardic as a result of his respiratory condition. I would recommend that we get use metoprolol tartrate 12.5 mg b.i.d. only if the heart rate is over 90. This can be given through NG tube. Other than that, no other specific recommendations and we will continue to see the patient as needed. MMODL / IJN: [id number] /
[2020-01-30] MEDS ORDERED: SODIUM CHLORIDE 0.9% 1,000 ML IV ONE (09:02)
--- NOTE | 2020-01-30 12:02 | PCN ---
PROCEDURE NOTE OPERATIVE REPORT: Placement of the left IJ triple-lumen catheter. PREOPERATIVE DIAGNOSIS: Acute hypoxic respiratory failure. POSTOPERATIVE DIAGNOSIS: Acute hypoxic respiratory failure. ANESTHESIA USED: 2 mL of 1% lidocaine. DESCRIPTION OF PROCEDURE: The patient was placed in a Trendelenburg position, the area of the left cervical region was prepared in a sterile fashion and drapes were applied. The area was locally anesthetized with lidocaine. Then using the anterior approach, the left internal jugular vein was cannulated easily, and a guidewire was placed. The area around the guidewire was dilated with a dilator, and then the triple-lumen catheter was inserted over the guidewire, the guidewire was removed. Good blood flow noted in the 3 different ports of the triple-lumen catheter. The line was secured using 3.0 silk sutures. A chest x-ray postoperatively showed good placement and no evidence of complications. MMDESMONDL / ALANAN: [id number] /
--- NOTE | 2020-01-30 12:20 | XR ---
EXAMINATION TYPE: XR chest 1V portable DATE OF EXAM: 01/30/2020 COMPARISON: 01/29/2020 HISTORY: Orogastric tube and enteric tube placement TECHNIQUE: Single frontal view of the chest is obtained. FINDINGS: Enteric tube appear satisfactorily placed with its fenestrated portion just beyond the gas troesophageal junction. Endotracheal tube terminates approximately 2.3 cm from the lore, also appro priately placed. Left internal jugular central venous catheter is placed with its distal tip at the c avoatrial junction. There is slight improved aeration of both lungs in comparison to the prior with r eticular opacities remaining throughout and few are alveolar opacities bilaterally. IMPRESSION: 1. Improved aeration of the lungs. Reticular interstitial opacities remain bilaterally however alveol ar opacities have improved bilaterally. 2. Appropriately placed enteric and endotracheal tubes as well as appropriately placed left internal jugular central venous catheter.
[2020-01-30 12:43] LABS: Glucose,Whole Blood 131 mg/dL (75-99)
--- NOTE | 2020-01-30 13:33 | P.PN ---
Subjective Progress Note Date: 01/30/20 Principal diagnosis: acute covid 19 pneumonitis was asked to evaluate this patient who is a 64-year-old male who has been diagnosed having acute covid 19 pneumonia and the patient has been progressively becoming hypoxic as the patient was on few liters about 2 by nasal cannula and subsequently dioxin fluids and she is up to 6 L and then 8 L and currently is on 10 L of oxygen by nasal cannula. The decompensation of worsening the oxygenation has occurred over the past 24 hours. At this point in time the patient is having difficulty breathing which is mild. He has a dry cough. He is sleeping in a prone body position. Seems to be making him more comfortable. While on 10 L of oxygen, is pulse oxing around 96%. His heart rate is at 59. BP is 111/67. He was having on and off low-grade fever throughout the hospitalization and his last temperature spike was 100.3 from 01/24/2020 at 8:00 in the evening. He was given doxycycline Rocephin and Plaquenil. He was placed on zinc sulfate and I also added IV Solu-Medrol 40 mg every 12 hours. The patient had a chest x-ray showing worsening bilateral pulmonary infiltrates and pneumonia compared to the original chest x-ray that was done on 01/23/2020. The blood gas today that was done on a 65% FiO2 showed a pH of 7.46 with a pCO2 of 26 and pO2 of 63 consistent with hypoxemia and respiratory alkalosis. White cell count was suppressed at 3.1. The patient has lymphopenia with a lymphocyte count of 0.2. The patient had a pro-calcitonin level of 0.17. LDH level was 1067 at a time of admission and hasn't been rechecked.. This patient got chest her dose from [facility]. He reported diarrhea around 3 weeks ago and his been having progressive shortness of breath over the past 2-3 weeks. He denies having any body aches. He is extensively fatigued. He was in [place] for spring. He has history of rheumatoid arthritis and the patient has been taking methotrexate for many years regarding his RA On 01/26/2020 patient seen in follow-up on medical surgical floor. Is currently on 11 L per high flow oxygen, his pulse ox is 93%, he is been afebrile, hemodynamically patient is stable, non-tachycardic. Yesterday's chest x-ray has been reviewed showing worsening bilateral pneumonias, patient is on combination of doxycycline, Rocephin, hydroxy chloroquine, and IV Solu-Medrol 40 mg every 12 hours, patient is on zinc 220 mg daily, and Ventolin inhaler. Still dyspnea, but no acute distress. Follow-up labs have been reviewed today, white blood cell count is up to 5.9, hemoglobin is 12.8, sodium is 138, potassium is 3.3, yesterday's LDH was trending up, and CRP was also trending up. Pro-calcitonin was in the intermediate range of 0.17. Lung sounds reveal crackles at bilateral bases. He states although she is still short of breath he overall feels somewhat better. On 01/27/2020 patient seen in follow-up on medical surgical floor. Patient is awake and alert, his oxygenation demand did increase overnight, he is currently on 13 L per high flow nasal cannula, he is satting about 93%, however he appears to be in no acute distress, mildly dyspneic, still has a dry cough, lung sounds reveal some crackles in bilateral lungs, no rhonchi or wheezing, patient is positive for Covid 19 infection, and she remains on a regime of hydroxychloroquine, IV Solu-Medrol, Rocephin and doxycycline. Afebrile. Today's chest x-ray has been reviewed showing persistent diffuse interstitial infiltrates, improved lung volumes with some improvement in aeration of the lung bases. Continue current medical treatment, today's labs have been reviewed, d- dimer is up to 1.44, no leukocytosis, hemoglobin is 12.1, sodium is 137, potassium 3.3, chloride is 109, CO2 is 20, B1 is 14 creatinine 0.70, LDH slightly trended up to 1728, CK is 29, CRP has significantly improved and is down to 49 On 01/28/2020 patient seen in follow-up on general medical floor. He is Covid 19 positive, FiO2 is down to 11 L on today's exam, from 13 L on yesterday's exam, his pulse ox is 92%. We will to be in any acute distress, breathing is comfortable, lung sounds reveal some minimal crackles at bilateral bases, patient remains on Rocephin, azithromycin has been discontinued, and he has completed a course of Plaquenil. Afebrile in the last 24 hours. Patient was reevaluated today on 01/29/20, he was seen on the regular medical floor, and he is on high flow nasal cannula at 13 L/m, O2 saturation is marginal anywhere between 90-94% at best patient has shortness of breath, but does not seem to be in distress. He is breathing very comfortably. His chest x-ray showed slight worsening. Crackles at the bases bilaterally noted. After evaluating the patient, and considering that his O2 saturation has been fluctuating between 84 and 95%, I recommended observing the patient in the ICU, and I transferred the patient to the ICU. ABG on high flow nasal cannula showed a pO2 of 64 he CO2 of 31 pH of 7.52. His d-dimer is 2.30. CBC is normal basic metabolic profile is normal however his LDH is 2066. C-reactive protein is 47. Reevaluated today on 01/30/20, patient was transferred yesterday to the intensive care unit, and around midnight, patient desaturated significantly, and we could not maintain his O2 saturation in the 90s. Patient was also noted by the nurse taking care of him to become more tachypneic, and he was using more and more of his accessory muscles. I was notified about the patient, and I recommended immediate intubation. Patient is now on mechanical ventilation, his ventilatory settings are assist control rate of 20 and this was increased to 26. His tidal volume was 450 assist-control rate FiO2 of 60% which was cut down to 50%, and PEEP was at 5 however I increased the PEEP to 10 today. I increased the flow rate to 70 L/m. Patient seems to be clinically dry, hence I recommended a liter of IV fluid in the form of 0.9 normal saline. I have also recommended that he remains on propofol at 50 fentanyl at 0.25 mcg/kg/h, and he is on Nimbex. Chest x-ray clearly shows evidence of diffuse interstitial infiltrates consistent with covid 19 pneumonitis. ABG this morning showed a pO2 of 116 pCO2 of 88 pH of 7.13, hence adjustment was made on his ventilatory settings. And rate was increased. PEEP was increased. And FiO2 was brought down to 50%. LDH today is 1827. And C-reactive protein is 47.4. Objective - Vital Signs Vital signs: Vital Signs Temp 96.6 F L 01/30/20 12:00 Pulse 80 01/30/20 12:30 Resp 26 H 01/30/20 12:30 BP 116/69 01/30/20 12:30 Pulse Ox 97 01/30/20 12:30 Intake & Output 01/29/20 01/30/20 01/30/20 18:59 06:59 18:59 Intake Total 818 364.289 9136.298 Output Total 1075 685 345 Balance -257 -75.007 1083.298 Weight 93 kg 87.9 kg 87.9 kg Intake: IV 0 350 200 Sodium Chloride 0.9% 1, 350 200 000 ml @ 50 mls/hr IV . Q20H [facility] Rx#:[id number] Sodium Chloride 0.9% 1, 0 0 000 ml @ 75 mls/hr IV . [id number] [facility] Rx#:[id number] Intake, IV Titration 500 267.240 7537.298 Amount Cisatracurium 200 mg In 4.464 Sodium Chloride 0.9% 180 ml @ 1 MCG/KG/MIN 5.58 mls/hr IV .Q24H [facility] Rx#: [id number] Propofol 1,000 mg In 225.529 128.773 Empty Bag 1 bag @ Titrate IV .Q0M [facility] Rx#: [id number] Sodium Chloride 0.9% 1, 500 000 ml @ 75 mls/hr IV . [id number] [facility] Rx#:[id number] Sodium Chloride 0.9% 1, 1000 000 ml @ 999 mls/hr IV . Q1H1M [facility] Rx#:[id number] fentaNYL (PF) 2,500 mcg 39.525 In Sodium Chloride 0.9% 200 ml @ 0.5 MCG/KG/HR 4. 65 mls/hr IV .Q24H [facility] Rx #:[id number] Oral 318 Tube Feeding 30 Other 60 Output: Gastric Drainage 50 Urine 1075 635 345 Other: Voiding Method Urinal Indwelling Catheter Indwelling Catheter # Voids 1 ABP, PAP, CO, CI - Last Documented Arterial Blood Pressure 98/48 - Exam GENERAL EXAM: Alert, very pleasant, 64-year-old white male, on mechanical ventilation, sedated and paralyzed. HEENT: PERRLA, EOMI, no active, dry mucous membranes, no neck masses, no JVD, no stridor. CHEST: No chest wall deformity. Symmetrical expansion. LUNGS: Fine basilar crackles throughout. CVS: Regular rate and rhythm, normal S1 and S2, no gallops, no murmurs, no rubs ABDOMEN: Soft, nontender. No hepatosplenomegaly, normal bowel sounds, no guarding or rigidity. EXTREMITIES: No clubbing, no edema, no cyanosis, 2+ pulses and upper and lower extremities. MUSCULOSKELETAL: Muscle tone normal. SKIN: No rashes CENTRAL NERVOUS SYSTEM: Sedated, paralyzed, could not be assessed. PSYCHIATRIC: Could not be assessed - Labs CBC & Chem 7: 01/30/20 04:14 01/30/20 04:14 Labs: Abnormal Lab Results - Last 24 Hours (Table) 01/29/20 01/30/20 01/30/20 Range/Units 07:48 00:17 02:00 Neutrophils # (1.3-7.7) k/uL Lymphocytes # (1.0-4.8) k/uL D-Dimer (<0.60) mg/L FEU ABG pH (7.35-7.45) ABG pCO2 (35-45) mmHg ABG pO2 (83-108) mmHg ABG HCO3 26 H (21-25) mmol/L ABG Total CO2 27 H (19-24) mmol/L BUN (9-20) mg/dL Glucose (74-99) mg/dL POC Glucose (mg/dL) (75-99) mg/dL Calcium (8.4-10.2) mg/dL Ferritin 1384.7 H (22.0-322.0) ng/mL Total Bilirubin (0.2-1.3) mg/dL AST (17-59) U/L ALT (4-49) U/L Lactate Dehydrogenase (313-618) U/L C-Reactive Protein (<10.0) mg/L Total Protein (6.3-8.2) g/dL Albumin (3.5-5.0) g/dL Urine Protein 1+ H (Negative) Urine WBC 6 H (0-5) /hpf Urine Mucus Rare H (None) /hpf 01/30/20 01/30/20 01/30/20 Range/Units 04:14 04:14 06:35 Neutrophils # 9.1 H (1.3-7.7) k/uL Lymphocytes # 0.5 L (1.0-4.8) k/uL D-Dimer 1.60 H (<0.60) mg/L FEU ABG pH (7.35-7.45) ABG pCO2 (35-45) mmHg ABG pO2 (83-108) mmHg ABG HCO3 (21-25) mmol/L ABG Total CO2 (19-24) mmol/L BUN 29 H (9-20) mg/dL Glucose 178 H (74-99) mg/dL POC Glucose (mg/dL) (75-99) mg/dL Calcium 8.3 L (8.4-10.2) mg/dL Ferritin (22.0-322.0) ng/mL Total Bilirubin 1.9 H (0.2-1.3) mg/dL AST 95 H (17-59) U/L ALT 85 H (4-49) U/L Lactate Dehydrogenase (313-618) U/L C-Reactive Protein (<10.0) mg/L Total Protein 5.5 L (6.3-8.2) g/dL Albumin 2.8 L (3.5-5.0) g/dL Urine Protein (Negative) Urine WBC (0-5) /hpf Urine Mucus (None) /hpf 01/30/20 01/30/20 01/30/20 Range/Units 06:35 08:00 12:40 Neutrophils # (1.3-7.7) k/uL Lymphocytes # (1.0-4.8) k/uL D-Dimer (<0.60) mg/L FEU ABG pH 7.13 L* (7.35-7.45) ABG pCO2 88 H* (35-45) mmHg ABG pO2 116 H (83-108) mmHg ABG HCO3 29 H (21-25) mmol/L ABG Total CO2 32 H (19-24) mmol/L BUN (9-20) mg/dL Glucose (74-99) mg/dL POC Glucose (mg/dL) 131 H (75-99) mg/dL Calcium (8.4-10.2) mg/dL Ferritin (22.0-322.0) ng/mL Total Bilirubin (0.2-1.3) mg/dL AST (17-59) U/L ALT (4-49) U/L Lactate Dehydrogenase 1827 H (313-618) U/L C-Reactive Protein 47.4 H (<10.0) mg/L Total Protein (6.3-8.2) g/dL Albumin (3.5-5.0) g/dL Urine Protein (Negative) Urine WBC (0-5) /hpf Urine Mucus (None) /hpf Assessment and Plan Assessment: acute covid 19 pneumonitis. acute hypoxic respiratory failure secondary to above. Patient required intubation and mechanical ventilation last night. And he remains intubated and ventilated. Acute hypercapnic respiratory failure secondary to severe pneumonitis secondary to covid 19. diarrhea due to GI manifestation of Covid 19 infection, improved lymphopenia secondary to Covid 19 infection Recommendation: Continue ventilatory support. Continue nutritional support. Patient is to be started on enteral feeding. Ventilator settings were adjusted. Central line and arterial line were placed. Fluid bolus will be given for marginal low blood pressure and the patient seems to be clinically dehydrated. Continue protocol. For treatment of his pneumonitis. Patient is critically ill. Critical care time is 35 minutes not including the time spent on procedures. We'll continue to follow. Time with Patient: Greater than 30
--- NOTE | 2020-01-30 13:53 | PCN ---
PROCEDURE NOTE RIGHT RADIAL ARTERIAL LINE PLACEMENT: PREOPERATIVE DIAGNOSIS: Acute hypoxic respiratory failure requiring intubation and placement on mechanical ventilation. POSTOPERATIVE DIAGNOSIS: Acute hypoxic respiratory failure requiring intubation and placement on mechanical ventilation. A time-out was completed verifying correct patient, procedure, site, positioning, and implant(s) or special equipment if applicable. Hugo's test was performed to ensure adequate perfusion. The patient's right wrist was prepped and draped in sterile fashion. 1% Lidocaine was used to anesthetize the area. An 18G Arrow arterial line was introduced into the radial/femoral artery. The catheter was threaded over the guide wire and the needle was removed with appropriate pulsatile blood return. Blood loss was minimal. The catheter was then sutured in place to the skin and a sterile dressing applied. Perfusion to the extremity distal to the point of catheter insertion was checked and found to be adequate. Procedure was tolerated very well, in no immediate complications. Line was flushed, sutured in place. Sterile dressing was applied. MMODL / IJN: [id number] /
[2020-01-30] MEDS: ENOXAPARIN 40 MG/0.4 ML SYRINGE SQ SCH (15:30)
[2020-01-30 15:55] LABS: Ferritin 1359.6 ng/mL (22.0-322.0)
--- NOTE | 2020-01-30 17:59 | P.PN ---
Subjective Progress Note Date: 01/30/20 Principal diagnosis: COVID 19 Patient was seen and examined. Worsening respiratory status overnight leading to intubation. Rate is at 26. Tidal volume 450. FiO2 percent. PEEP is at 10. Liver enzymes worsening. Lactate dehydrogenase slightly improved. CRP and ferritin stable. Objective - Vital Signs Vital signs: Vital Signs Temp 96.6 F L 01/30/20 12:00 Pulse 89 01/30/20 14:30 Resp 26 H 01/30/20 14:30 BP 116/69 01/30/20 12:30 Pulse Ox 97 01/30/20 14:30 Intake & Output 01/29/20 01/30/20 01/30/20 18:59 06:59 18:59 Intake Total 818 777.204 7507.937 Output Total 1075 685 345 Balance -257 -75.007 1288.937 Weight 93 kg 87.9 kg 87.9 kg Intake: IV 0 350 200 Sodium Chloride 0.9% 1, 350 200 000 ml @ 50 mls/hr IV . Q20H [facility] Rx#:[id number] Sodium Chloride 0.9% 1, 0 0 000 ml @ 75 mls/hr IV . [id number] [facility] Rx#:[id number] Intake, IV Titration 500 864.363 3693.937 Amount Cisatracurium 200 mg In 4.464 160.704 Sodium Chloride 0.9% 180 ml @ 1 MCG/KG/MIN 5.58 mls/hr IV .Q24H [facility] Rx#: [id number] Propofol 1,000 mg In 225.529 158.014 Empty Bag 1 bag @ Titrate IV .Q0M [facility] Rx#: [id number] Sodium Chloride 0.9% 1, 500 000 ml @ 75 mls/hr IV . [id number] [facility] Rx#:[id number] Sodium Chloride 0.9% 1, 1000 000 ml @ 999 mls/hr IV . Q1H1M [facility] Rx#:[id number] fentaNYL (PF) 2,500 mcg 55.219 In Sodium Chloride 0.9% 200 ml @ 0.5 MCG/KG/HR 4. 65 mls/hr IV .Q24H [facility] Rx #:[id number] Oral 318 Tube Feeding 30 Other 60 Output: Gastric Drainage 50 Urine 1075 635 345 Other: Voiding Method Urinal Indwelling Catheter Indwelling Catheter # Voids 1 ABP, PAP, CO, CI - Last Documented Arterial Blood Pressure 111/54 - Exam General: [non toxic], [intubated], [appears at stated age] Derm: [warm], [dry] Head: [atraumatic], [normocephalic], [symmetric] Eyes: [EOMI], [no lid lag], [anicteric sclera] Mouth: [no lip lesion], [mucus membranes moist] Cardiovascular: [S1S2 reg], [tachycardic], [positive DP pulse bilateral], Lungs: [Coarse breath sounds bilateral], [no rhonchi, no rales] , [no accessory muscle use] Abdominal: [soft], [ nontender to palpation], [no guarding], [no appreciable organomegaly] Ext: [no gross muscle atrophy], [no edema], [no contractures] Neuro: [Unable to determine] Psych: [Unable to determine] - Labs CBC & Chem 7: 01/30/20 04:14 01/30/20 04:14 Labs: Abnormal Lab Results - Last 24 Hours (Table) 01/30/20 01/30/20 01/30/20 Range/Units 00:17 02:00 04:14 Neutrophils # 9.1 H (1.3-7.7) k/uL Lymphocytes # 0.5 L (1.0-4.8) k/uL D-Dimer (<0.60) mg/L FEU ABG pH (7.35-7.45) ABG pCO2 (35-45) mmHg ABG pO2 (83-108) mmHg ABG HCO3 26 H (21-25) mmol/L ABG Total CO2 27 H (19-24) mmol/L BUN (9-20) mg/dL Glucose (74-99) mg/dL POC Glucose (mg/dL) (75-99) mg/dL Calcium (8.4-10.2) mg/dL Ferritin (22.0-322.0) ng/mL Total Bilirubin (0.2-1.3) mg/dL AST (17-59) U/L ALT (4-49) U/L Lactate Dehydrogenase (313-618) U/L C-Reactive Protein (<10.0) mg/L Total Protein (6.3-8.2) g/dL Albumin (3.5-5.0) g/dL Urine Protein 1+ H (Negative) Urine WBC 6 H (0-5) /hpf Urine Mucus Rare H (None) /hpf 01/30/20 01/30/20 01/30/20 Range/Units 04:14 06:35 06:35 Neutrophils # (1.3-7.7) k/uL Lymphocytes # (1.0-4.8) k/uL D-Dimer 1.60 H (<0.60) mg/L FEU ABG pH (7.35-7.45) ABG pCO2 (35-45) mmHg ABG pO2 (83-108) mmHg ABG HCO3 (21-25) mmol/L ABG Total CO2 (19-24) mmol/L BUN 29 H (9-20) mg/dL Glucose 178 H (74-99) mg/dL POC Glucose (mg/dL) (75-99) mg/dL Calcium 8.3 L (8.4-10.2) mg/dL Ferritin 1359.6 H (22.0-322.0) ng/mL Total Bilirubin 1.9 H (0.2-1.3) mg/dL AST 95 H (17-59) U/L ALT 85 H (4-49) U/L Lactate Dehydrogenase 1827 H (313-618) U/L C-Reactive Protein 47.4 H (<10.0) mg/L Total Protein 5.5 L (6.3-8.2) g/dL Albumin 2.8 L (3.5-5.0) g/dL Urine Protein (Negative) Urine WBC (0-5) /hpf Urine Mucus (None) /hpf 01/30/20 01/30/20 Range/Units 08:00 12:40 Neutrophils # (1.3-7.7) k/uL Lymphocytes # (1.0-4.8) k/uL D-Dimer (<0.60) mg/L FEU ABG pH 7.13 L* (7.35-7.45) ABG pCO2 88 H* (35-45) mmHg ABG pO2 116 H (83-108) mmHg ABG HCO3 29 H (21-25) mmol/L ABG Total CO2 32 H (19-24) mmol/L BUN (9-20) mg/dL Glucose (74-99) mg/dL POC Glucose (mg/dL) 131 H (75-99) mg/dL Calcium (8.4-10.2) mg/dL Ferritin (22.0-322.0) ng/mL Total Bilirubin (0.2-1.3) mg/dL AST (17-59) U/L ALT (4-49) U/L Lactate Dehydrogenase (313-618) U/L C-Reactive Protein (<10.0) mg/L Total Protein (6.3-8.2) g/dL Albumin (3.5-5.0) g/dL Urine Protein (Negative) Urine WBC (0-5) /hpf Urine Mucus (None) /hpf Assessment and Plan Assessment: 1. Bilateral pneumonia with Covid 19 infection, acute hypoxic respiratory failure -Supportive care, ventilatory support by pulmonology -Patient completed course of Plaquenil -Doxycycline discontinued, Continue Rocephin -Continue albuterol inhaler -Continue to monitor labs -Limit IV fluids -Continue contact and droplet isolation precautions -Continue zinc -Continue IV steroids per pulmonary -Wean oxygen as tolerated to maintain O2 sats greater than 92% -Pulmonary following 2. Immunocompromised secondary to methotrexate for history of rheumatoid ar thritis 3. Elevated BUN of 29 -Likely from volume depletion. Continue normal saline at 50 mL per hour. [Patient intubated. He is pending clinical improvement. Prognosis is guarded. Pulmonology is following.]
[2020-01-30] MEDS: NOREPINEPHRINE 8 MG in SODIUM CHLORIDE 0.9% 250 ML IV SCH (21:02)
--- NOTE | 2020-01-30 23:17 | PN ---
PROGRESS NOTE DATE OF SERVICE: 01/30/2020 REASON FOR FOLLOWUP: Acute COVID-19 pneumonia. INTERVAL HISTORY: The patient went into respiratory distress last night. The patient ended up getting intubated. The patient is currently hemodynamically stable, not requiring any pressor support. FiO2 is down to 50%. No significant purulent secretion through the ET or any diarrhea has been reported. PHYSICAL EXAMINATION: Blood pressure 116/69 with a pulse of 63, temperature 98.3. He is 97% on 50% FiO2. General description is a middle-aged male lying in bed in no distress. RESPIRATORY SYSTEM: Unlabored breathing. Clear to auscultation anteriorly. HEART: S1, S2. Regular rate and rhythm. ABDOMEN: Soft. No tenderness. LABS: Hemoglobin 13.6, white count 9.9, BUN of 29, creatinine 0.89. DIAGNOSTIC IMPRESSION AND PLAN: Patient with acute COVID-19 pneumonia with acute respiratory failure. The patient has completed a 5-day course of Plaquenil. Currently on Solu-Medrol and zinc; to continue and monitor his clinical course closely. MMODL / IJN: [id number] /
[2020-01-31] MEDS: ARTIFICIAL TEARS-HYPROMELLOSE DROPS 15 ML BTL BOTH EYES SCH ×6 (01:21→23:26)
[2020-01-31 02:06] LABS: Glucose,Whole Blood 152 mg/dL (75-99)
[2020-01-31] MEDS: fentaNYL (PF) 2,500 MCG in SODIUM CHLORIDE 0.9% 200 ML IV SCH (02:12)
[2020-01-31] MEDS: PROPOFOL 1,000 MG in EMPTY BAG 1 BAG IV SCH ×7 (02:18→23:59)
[2020-01-31 04:47] LABS: Basophils % (A) 0 %; Eosinophils % (A) 0 %; HCT 40.4 % (39.0-53.0); HGB 12.5 gm/dL (13.0-17.5); Hypochromasia Slight; Lymphocytes # (A) 0.3 k/uL (1.0-4.8); Lymphocytes % (A) 5 %; MCHC 30.8 g/dL (31.0-37.0); MCV 94.1 fL (80.0-100.0); Mean Platelet Volume 7.8; Monocytes # (A) 0.2 k/uL (0-1.0); Monocytes % (A) 3 %; Neutrophils # (A) 5.5 k/uL (1.3-7.7); Neutrophils % (A) 90 %; Platelet Count 337 k/uL (150-450); Poikilocytosis Slight; RBC 4.29 m/uL (4.30-5.90); RDW 14.8 % (11.5-15.5); WBC 6.1 k/uL (3.8-10.6)
[2020-01-31 04:56] LABS: ALT 84 U/L (4-49); AST 35 U/L (17-59); African American GFR (CKD) >90 (>60 ml/min/1.73 sqM); Albumin 2.4 g/dL (3.5-5.0); Alkaline Phosphatase 98 U/L (38-126); Anion Gap 4 mmol/L; Blood Urea Nitrogen 37 mg/dL (9-20); Calcium 8.1 mg/dL (8.4-10.2); Carbon Dioxide 30 mmol/L (22-30); Chloride 109 mmol/L (98-107); Glucose 159 mg/dL (74-99); LDH 1048 U/L (313-618); Non-African American GFR(CKD) >90 (>60 ml/min/1.73 sqM); Potassium 4.7 mmol/L (3.5-5.1); Sodium 143 mmol/L (137-145); Total Bilirubin 0.7 mg/dL (0.2-1.3)
[2020-01-31 05:16] LABS: C Reactive Protein 44.5 mg/L (<10.0)
[2020-01-31 06:04] LABS: Glucose,Whole Blood 139 mg/dL (75-99)
[2020-01-31 06:44] LABS: ABG Base Excess 3.8 mmol/L; ABG HCO3 31 mmol/L (21-25); ABG Oxygen Saturation 98.5 % (94-97); ABG PCO2 67 mmHg (35-45); ABG PH 7.27 (7.35-7.45); ABG PO2 116 mmHg (83-108); ABG TCO2 33 mmol/L (19-24)
--- NOTE | 2020-01-31 07:01 | XR ---
EXAMINATION TYPE: XR chest 1V portable DATE OF EXAM: 01/31/2020 HISTORY: Tube placement. REFERENCE: Previous study dated 01/30/2020. FINDINGS: The patient is ET tube and NG tube remain in place, unchanged in appearance. There are patchy bilateral infiltrates. The heart is not enlarged. There is blunting of the left CP a ngle and I could not exclude small effusions. IMPRESSION: 1. CONTINUING PATCHY, BILATERAL INFILTRATES. 2. I CANNOT EXCLUDE A SMALL LEFT EFFUSION.
[2020-01-31] MEDS: ALBUTEROL HFA INHALER INHALATION SCH ×4 (07:51→20:51)
[2020-01-31] MEDS: CHLORHEXIDINE GLUCONATE 15 ML CUP MUCOUS MEM SCH ×2 (08:23→20:12)
[2020-01-31] MEDS: methylPREDNISolone SOD SUCCI 40 MG/ML 1 ML VIAL IV SCH ×2 (08:23→20:12)
[2020-01-31] MEDS: PANTOPRAZOLE 40 MG TABLET PO SCH (08:24)
[2020-01-31] MEDS: POTASSIUM CHLORIDE ER 10 MEQ TAB.ER.PRT PO SCH (08:25)
[2020-01-31] MEDS: ZINC SULFATE 220 MG CAP PO SCH (08:25)
[2020-01-31] MEDS: CISATRACURIUM 200 MG in SODIUM CHLORIDE 0.9% 180 ML IV SCH ×2 (08:27→20:20)
[2020-01-31 11:18] LABS: Ferritin 1240.5 ng/mL (22.0-322.0)
[2020-01-31 11:55] LABS: Glucose,Whole Blood 123 mg/dL (75-99)
--- NOTE | 2020-01-31 13:38 | P.PN ---
Subjective Progress Note Date: 01/31/20 Principal diagnosis: acute covid 19 pneumonitis was asked to evaluate this patient who is a 64-year-old male who has been diagnosed having acute covid 19 pneumonia and the patient has been progressively becoming hypoxic as the patient was on few liters about 2 by nasal cannula and subsequently dioxin fluids and she is up to 6 L and then 8 L and currently is on 10 L of oxygen by nasal cannula. The decompensation of worsening the oxygenation has occurred over the past 24 hours. At this point in time the patient is having difficulty breathing which is mild. He has a dry cough. He is sleeping in a prone body position. Seems to be making him more comfortable. While on 10 L of oxygen, is pulse oxing around 96%. His heart rate is at 59. BP is 111/67. He was having on and off low-grade fever throughout the hospitalization and his last temperature spike was 100.3 from 01/24/2020 at 8:00 in the evening. He was given doxycycline Rocephin and Plaquenil. He was placed on zinc sulfate and I also added IV Solu-Medrol 40 mg every 12 hours. The patient had a chest x-ray showing worsening bilateral pulmonary infiltrates and pneumonia compared to the original chest x-ray that was done on 01/23/2020. The blood gas today that was done on a 65% FiO2 showed a pH of 7.46 with a pCO2 of 26 and pO2 of 63 consistent with hypoxemia and respiratory alkalosis. White cell count was suppressed at 3.1. The patient has lymphopenia with a lymphocyte count of 0.2. The patient had a pro-calcitonin level of 0.17. LDH level was 1067 at a time of admission and hasn't been rechecked.. This patient got chest her dose from [facility]. He reported diarrhea around 3 weeks ago and his been having progressive shortness of breath over the past 2-3 weeks. He denies having any body aches. He is extensively fatigued. He was in [place] for spring. He has history of rheumatoid arthritis and the patient has been taking methotrexate for many years regarding his RA On 01/26/2020 patient seen in follow-up on medical surgical floor. Is currently on 11 L per high flow oxygen, his pulse ox is 93%, he is been afebrile, hemodynamically patient is stable, non-tachycardic. Yesterday's chest x-ray has been reviewed showing worsening bilateral pneumonias, patient is on combination of doxycycline, Rocephin, hydroxy chloroquine, and IV Solu-Medrol 40 mg every 12 hours, patient is on zinc 220 mg daily, and Ventolin inhaler. Still dyspnea, but no acute distress. Follow-up labs have been reviewed today, white blood cell count is up to 5.9, hemoglobin is 12.8, sodium is 138, potassium is 3.3, yesterday's LDH was trending up, and CRP was also trending up. Pro-calcitonin was in the intermediate range of 0.17. Lung sounds reveal crackles at bilateral bases. He states although she is still short of breath he overall feels somewhat better. On 01/27/2020 patient seen in follow-up on medical surgical floor. Patient is awake and alert, his oxygenation demand did increase overnight, he is currently on 13 L per high flow nasal cannula, he is satting about 93%, however he appears to be in no acute distress, mildly dyspneic, still has a dry cough, lung sounds reveal some crackles in bilateral lungs, no rhonchi or wheezing, patient is positive for Covid 19 infection, and she remains on a regime of hydroxychloroquine, IV Solu-Medrol, Rocephin and doxycycline. Afebrile. Today's chest x-ray has been reviewed showing persistent diffuse interstitial infiltrates, improved lung volumes with some improvement in aeration of the lung bases. Continue current medical treatment, today's labs have been reviewed, d- dimer is up to 1.44, no leukocytosis, hemoglobin is 12.1, sodium is 137, potassium 3.3, chloride is 109, CO2 is 20, B1 is 14 creatinine 0.70, LDH slightly trended up to 1728, CK is 29, CRP has significantly improved and is down to 49 On 01/28/2020 patient seen in follow-up on general medical floor. He is Covid 19 positive, FiO2 is down to 11 L on today's exam, from 13 L on yesterday's exam, his pulse ox is 92%. We will to be in any acute distress, breathing is comfortable, lung sounds reveal some minimal crackles at bilateral bases, patient remains on Rocephin, azithromycin has been discontinued, and he has completed a course of Plaquenil. Afebrile in the last 24 hours. Patient was reevaluated today on 01/29/20, he was seen on the regular medical floor, and he is on high flow nasal cannula at 13 L/m, O2 saturation is marginal anywhere between 90-94% at best patient has shortness of breath, but does not seem to be in distress. He is breathing very comfortably. His chest x-ray showed slight worsening. Crackles at the bases bilaterally noted. After evaluating the patient, and considering that his O2 saturation has been fluctuating between 84 and 95%, I recommended observing the patient in the ICU, and I transferred the patient to the ICU. ABG on high flow nasal cannula showed a pO2 of 64 he CO2 of 31 pH of 7.52. His d-dimer is 2.30. CBC is normal basic metabolic profile is normal however his LDH is 6. C-reactive protein is 47. Reevaluated today on 01/30/20, patient was transferred yesterday to the intensive care unit, and around midnight, patient desaturated significantly, and we could not maintain his O2 saturation in the 90s. Patient was also noted by the nurse taking care of him to become more tachypneic, and he was using more and more of his accessory muscles. I was notified about the patient, and I recommended immediate intubation. Patient is now on mechanical ventilation, his ventilatory settings are assist control rate of 20 and this was increased to 26. His tidal volume was 450 assist-control rate FiO2 of 60% which was cut down to 50%, and PEEP was at 5 however I increased the PEEP to 10 today. I increased the flow rate to 70 L/m. Patient seems to be clinically dry, hence I recommended a liter of IV fluid in the form of 0.9 normal saline. I have also recommended that he remains on propofol at 50 fentanyl at 0.25 mcg/kg/h, and he is on Nimbex. Chest x-ray clearly shows evidence of diffuse interstitial infiltrates consistent with covid 19 pneumonitis. ABG this morning showed a pO2 of 116 pCO2 of 88 pH of 7.13, hence adjustment was made on his ventilatory settings. And rate was increased. PEEP was increased. And FiO2 was brought down to 50%. LDH today is 1827. And C-reactive protein is 47.4. Patient was reevaluated today on 01/31/20, remains intubated and mechanically ventilated. Patient is on assist control rate of 26 tidal volume is 450 FiO2 is 40% and PEEP is 10 however I cut it down to 8 today. And increased his rate to 30. Kept him on the same tidal volume of 4.50. The reason I made the change was because of his ABG showing pO2 of 116 pCO2 of 67 and pH of 7.27. His inflammatory markers are trending down. C-reactive protein is 44. Peak airway pressure is 26, plateau pressure is 21. Patient remains on propofol at 3 0 mcg/kg/m, fentanyl at 0.5 mcg/kg/h and on Nimbex at 3 mcg/kg/m. Off norepinephrine, remains on IV fluid 0.9 normal saline at 50 mL per hour.remains on enteral feeding.labs and chest x-ray were reviewed.chest x-ray continues to show patchy bilateral interstitial infiltrates with Objective - Vital Signs Vital signs: Vital Signs Temp 97.6 F 01/31/20 04:00 Pulse 82 01/31/20 07:00 Resp 26 H 01/31/20 07:00 BP 116/69 01/31/20 07:00 Pulse Ox 97 01/31/20 07:00 Intake & Output 01/30/20 01/31/20 01/31/20 18:59 06:59 18:59 Intake Total 2193.015 1606.615 522.368 Output Total 960 800 480 Balance 1233.015 806.615 42.368 Weight 87.9 kg 95.5 kg 95.5 kg Intake: IV 592 616 112 Normal Saline Pressure 42 66 12 Bag Sodium Chloride 0.9% 1, 550 550 100 000 ml @ 50 mls/hr IV . Q20H [facility] Rx#:[id number] Intake, IV Titration 1446.015 360.615 300.368 Amount Cisatracurium 200 mg In 160.704 186.930 Sodium Chloride 0.9% 180 ml @ 1 MCG/KG/MIN 5.58 mls/hr IV .Q24H [facility] Rx#: [id number] Norepinephrine 8 mg In 59.925 13.438 Sodium Chloride 0.9% 250 ml @ 0.05 MCG/KG/MIN 8. 504 mls/hr IV .Q24H [facility] Rx#:[id number] Propofol 1,000 mg In 230.092 252.097 100.000 Empty Bag 1 bag @ Titrate IV .Q0M [facility] Rx#: [id number] Sodium Chloride 0.9% 1, 1000 000 ml @ 999 mls/hr IV . Q1H1M [facility] Rx#:[id number] fentaNYL (PF) 2,500 mcg 55.219 48.593 In Sodium Chloride 0.9% 200 ml @ 0.5 MCG/KG/HR 4. 65 mls/hr IV .Q24H [facility] Rx #:[id number] Oral 200 Tube Feeding 65 370 80 Other 90 60 30 Output: Urine 960 800 480 Other: Voiding Method Indwelling Catheter Indwelling Catheter Indwelling Catheter ABP, PAP, CO, CI - Last Documented Arterial Blood Pressure 129/55 - Exam GENERAL EXAM: Alert, very pleasant, 64-year-old white male, on mechanical ventilation, sedated and paralyzed. HEENT: PERRLA, EOMI, no active, dry mucous membranes, no neck masses, no JVD, no stridor. CHEST: No chest wall deformity. Symmetrical expansion. LUNGS: Fine basilar crackles throughout. CVS: Regular rate and rhythm, normal S1 and S2, no gallops, no murmurs, no rubs ABDOMEN: Soft, nontender. No hepatosplenomegaly, normal bowel sounds, no guarding or rigidity. EXTREMITIES: No clubbing, no edema, no cyanosis, 2+ pulses and upper and lower extremities. MUSCULOSKELETAL: Muscle tone normal. SKIN: No rashes CENTRAL NERVOUS SYSTEM: Sedated, paralyzed, could not be assessed. PSYCHIATRIC: Could not be assessed - Labs CBC & Chem 7: 01/31/20 04:10 01/31/20 04:10 Labs: Abnormal Lab Results - Last 24 Hours (Table) 01/30/20 01/31/20 01/31/20 Range/Units 06:35 02:04 04:10 RBC 4.29 L (4.30-5.90) m/uL Hgb 12.5 L (13.0-17.5) gm/dL MCHC 30.8 L (31.0-37.0) g/dL Lymphocytes # 0.3 L (1.0-4.8) k/uL D-Dimer (<0.60) mg/L FEU ABG pH (7.35-7.45) ABG pCO2 (35-45) mmHg ABG pO2 (83-108) mmHg ABG HCO3 (21-25) mmol/L ABG Total CO2 (19-24) mmol/L ABG O2 Saturation (94-97) % Chloride (98-107) mmol/L BUN (9-20) mg/dL Glucose (74-99) mg/dL POC Glucose (mg/dL) 152 H (75-99) mg/dL Calcium (8.4-10.2) mg/dL Ferritin 1359.6 H (22.0-322.0) ng/mL ALT (4-49) U/L Lactate Dehydrogenase (313-618) U/L C-Reactive Protein (<10.0) mg/L Total Protein (6.3-8.2) g/dL Albumin (3.5-5.0) g/dL 01/31/20 01/31/20 01/31/20 Range/Units 04:10 04:10 06:02 RBC (4.30-5.90) m/uL Hgb (13.0-17.5) gm/dL MCHC (31.0-37.0) g/dL Lymphocytes # (1.0-4.8) k/uL D-Dimer 2.09 H (<0.60) mg/L FEU ABG pH (7.35-7.45) ABG pCO2 (35-45) mmHg ABG pO2 (83-108) mmHg ABG HCO3 (21-25) mmol/L ABG Total CO2 (19-24) mmol/L ABG O2 Saturation (94-97) % Chloride 109 H (98-107) mmol/L BUN 37 H (9-20) mg/dL Glucose 159 H (74-99) mg/dL POC Glucose (mg/dL) 139 H (75-99) mg/dL Calcium 8.1 L (8.4-10.2) mg/dL Ferritin 1240.5 H (22.0-322.0) ng/mL ALT 84 H (4-49) U/L Lactate Dehydrogenase 1048 H (313-618) U/L C-Reactive Protein 44.5 H (<10.0) mg/L Total Protein 5.0 L (6.3-8.2) g/dL Albumin 2.4 L (3.5-5.0) g/dL 04/11/20 04/11/20 Range/Units 06:40 11:53 RBC (4.30-5.90) m/uL Hgb (13.0-17.5) gm/dL MCHC (31.0-37.0) g/dL Lymphocytes # (1.0-4.8) k/uL D-Dimer (<0.60) mg/L FEU ABG pH 7.27 L (7.35-7.45) ABG pCO2 67 H (35-45) mmHg ABG pO2 116 H (83-108) mmHg ABG HCO3 31 H (21-25) mmol/L ABG Total CO2 33 H (19-24) mmol/L ABG O2 Saturation 98.5 H (94-97) % Chloride (98-107) mmol/L BUN (9-20) mg/dL Glucose (74-99) mg/dL POC Glucose (mg/dL) 123 H (75-99) mg/dL Calcium (8.4-10.2) mg/dL Ferritin (22.0-322.0) ng/mL ALT (4-49) U/L Lactate Dehydrogenase (313-618) U/L C-Reactive Protein (<10.0) mg/L Total Protein (6.3-8.2) g/dL Albumin (3.5-5.0) g/dL Assessment and Plan Assessment: acute covid 19 pneumonitis. acute hypoxic respiratory failure secondary to above. Patient required intubation and mechanical ventilation Acute hypercapnic respiratory failure secondary to severe pneumonitis secondary to covid 19. diarrhea due to GI manifestation of Covid 19 infection, improved lymphopenia secondary to Covid 19 infection Recommendation: Continue ventilatory support. Continue nutritional support. /enteral feeding. Ventilator settings were adjusted. Continue protocol. For treatment of his pneumonitis. Patient is critically ill. Critical care time is 33 minutes not including the time spent on procedures. We'll continue to follow. Time with Patient: Greater than 30
--- NOTE | 2020-01-31 15:59 | P.PN ---
Subjective Progress Note Date: 01/31/20 Principal diagnosis: COVID 19 64-year-old male was admitted for acute hypoxic respiratory failure secondary to COVID 19 diagnosis. He was started on hydroxychloroquine, Rocephin and doxycycline along with albuterol inhaler and placed on droplet precautions. He was started on low-dose IV steroids and given supplemental O2 maintain maintain O2 saturation greater than 92%. He was initially on 6 L nasal cannula which progressively increased to 15 L high flow. Awake proning was attempted without much relief. Patient continued to deteriorate and pulmonology was consulted. Pulmonology recommended transfer to ICU for closer monitoring on 01/29/2020. He was intubated on 01/30/2020 overnight. Patient was seen and examined. He continues to be intubated. Rate is at 26. Tidal volume 450. FiO2 40%. PEEP is at 8 from 10 yesterday. Objective - Vital Signs Vital signs: Vital Signs Temp 97.6 F 01/31/20 04:00 Pulse 82 01/31/20 07:00 Resp 26 H 01/31/20 07:00 BP 116/69 01/31/20 07:00 Pulse Ox 97 01/31/20 07:00 Intake & Output 01/30/20 01/31/20 01/31/20 18:59 06:59 18:59 Intake Total 2193.015 1606.615 462.303 Output Total 960 800 480 Balance 1233.015 806.615 -17.697 Weight 87.9 kg 95.5 kg Intake: IV 592 616 112 Normal Saline Pressure 42 66 12 Bag Sodium Chloride 0.9% 1, 550 550 100 000 ml @ 50 mls/hr IV . Q20H [facility] Rx#:[id number] Intake, IV Titration 1446.015 360.615 240.303 Amount Cisatracurium 200 mg In 160.704 186.930 Sodium Chloride 0.9% 180 ml @ 1 MCG/KG/MIN 5.58 mls/hr IV .Q24H [facility] Rx#: [id number] Norepinephrine 8 mg In 59.925 13.438 Sodium Chloride 0.9% 250 ml @ 0.05 MCG/KG/MIN 8. 504 mls/hr IV .Q24H [facility] Rx#:[id number] Propofol 1,000 mg In 230.092 252.097 39.935 Empty Bag 1 bag @ Titrate IV .Q0M [facility] Rx#: [id number] Sodium Chloride 0.9% 1, 1000 000 ml @ 999 mls/hr IV . Q1H1M [facility] Rx#:[id number] fentaNYL (PF) 2,500 mcg 55.219 48.593 In Sodium Chloride 0.9% 200 ml @ 0.5 MCG/KG/HR 4. 65 mls/hr IV .Q24H [facility] Rx #:[id number] Oral 200 Tube Feeding 65 370 80 Other 90 60 30 Output: Urine 960 800 480 Other: Voiding Method Indwelling Catheter Indwelling Catheter Indwelling Catheter ABP, PAP, CO, CI - Last Documented Arterial Blood Pressure 129/55 - Exam General: [non toxic], [intubated], [appears at stated age] Derm: [warm], [dry] Head: [atraumatic], [normocephalic], [symmetric] Eyes: [EOMI], [no lid lag], [anicteric sclera] Mouth: [no lip lesion], [mucus membranes moist] Cardiovascular: [S1S2 reg], [tachycardic], [positive DP pulse bilateral], Lungs: [Coarse breath sounds bilateral], [no rhonchi, no rales] , [no accessory muscle use] Abdominal: [soft], [ nontender to palpation], [no guarding], [no appreciable organomegaly] Ext: [no gross muscle atrophy], [no edema], [no contractures] Neuro: [Unable to determine] Psych: [Unable to determine] - Labs CBC & Chem 7: 01/31/20 04:10 01/31/20 04:10 Labs: Abnormal Lab Results - Last 24 Hours (Table) 01/30/20 01/30/20 01/31/20 Range/Units 06:35 12:40 02:04 RBC (4.30-5.90) m/uL Hgb (13.0-17.5) gm/dL MCHC (31.0-37.0) g/dL Lymphocytes # (1.0-4.8) k/uL D-Dimer (<0.60) mg/L FEU ABG pH (7.35-7.45) ABG pCO2 (35-45) mmHg ABG pO2 (83-108) mmHg ABG HCO3 (21-25) mmol/L ABG Total CO2 (19-24) mmol/L ABG O2 Saturation (94-97) % Chloride (98-107) mmol/L BUN (9-20) mg/dL Glucose (74-99) mg/dL POC Glucose (mg/dL) 131 H 152 H (75-99) mg/dL Calcium (8.4-10.2) mg/dL Ferritin 1359.6 H (22.0-322.0) ng/mL ALT (4-49) U/L Lactate Dehydrogenase (313-618) U/L C-Reactive Protein (<10.0) mg/L Total Protein (6.3-8.2) g/dL Albumin (3.5-5.0) g/dL 01/31/20 01/31/20 01/31/20 Range/Units 04:10 04:10 04:10 RBC 4.29 L (4.30-5.90) m/uL Hgb 12.5 L (13.0-17.5) gm/dL MCHC 30.8 L (31.0-37.0) g/dL Lymphocytes # 0.3 L (1.0-4.8) k/uL D-Dimer 2.09 H (<0.60) mg/L FEU ABG pH (7.35-7.45) ABG pCO2 (35-45) mmHg ABG pO2 (83-108) mmHg ABG HCO3 (21-25) mmol/L ABG Total CO2 (19-24) mmol/L ABG O2 Saturation (94-97) % Chloride 109 H (98-107) mmol/L BUN 37 H (9-20) mg/dL Glucose 159 H (74-99) mg/dL POC Glucose (mg/dL) (75-99) mg/dL Calcium 8.1 L (8.4-10.2) mg/dL Ferritin 1240.5 H (22.0-322.0) ng/mL ALT 84 H (4-49) U/L Lactate Dehydrogenase 1048 H (313-618) U/L C-Reactive Protein 44.5 H (<10.0) mg/L Total Protein 5.0 L (6.3-8.2) g/dL Albumin 2.4 L (3.5-5.0) g/dL 01/31/20 01/31/20 Range/Units 06:02 06:40 RBC (4.30-5.90) m/uL Hgb (13.0-17.5) gm/dL MCHC (31.0-37.0) g/dL Lymphocytes # (1.0-4.8) k/uL D-Dimer (<0.60) mg/L FEU ABG pH 7.27 L (7.35-7.45) ABG pCO2 67 H (35-45) mmHg ABG pO2 116 H (83-108) mmHg ABG HCO3 31 H (21-25) mmol/L ABG Total CO2 33 H (19-24) mmol/L ABG O2 Saturation 98.5 H (94-97) % Chloride (98-107) mmol/L BUN (9-20) mg/dL Glucose (74-99) mg/dL POC Glucose (mg/dL) 139 H (75-99) mg/dL Calcium (8.4-10.2) mg/dL Ferritin (22.0-322.0) ng/mL ALT (4-49) U/L Lactate Dehydrogenase (313-618) U/L C-Reactive Protein (<10.0) mg/L Total Protein (6.3-8.2) g/dL Albumin (3.5-5.0) g/dL Assessment and Plan Assessment: Acute hypoxic respiratory failure, COVID 19 pneumonia Immunocompromised secondary to methotrexate for history of rheumatoid arthritis Elevated BUN Patient continues to require ventilatory support. This is being managed by pulmonology. He has completed his course of hydroxychloroquine. Doxycycline has been discontinued and he will be continued on Rocephin for the time being. He will be continued on IV steroids and zinc. He is on contact and droplet precautions. Pulmonology to manage ventilator settings. Infectious disease and pulmonology is following. His BUN continues to worsen today which is likely prerenal in nature and he will be continued on normal saline at 50 mL per hour. He is pending clinical improvement. Prognosis is extremely guarded at this time.
[2020-01-31] MEDS: ENOXAPARIN 40 MG/0.4 ML SYRINGE SQ SCH (16:58)
[2020-01-31] MEDS: SODIUM CHLORIDE 0.9% 1,000 ML IV SCH (16:58)
[2020-01-31] MEDS: INSULIN ASPART (NovoLOG) 100 UNIT/ML VIAL SQ SCH ×2 (16:59→19:11)
[2020-01-31 18:02] LABS: Glucose,Whole Blood 109 mg/dL (75-99)
--- NOTE | 2020-01-31 19:14 | PN ---
PROGRESS NOTE DATE OF SERVICE: 01/31/2020 REASON FOR FOLLOWUP: Acute COVID-19 pneumonia. INTERVAL HISTORY: The patient is currently afebrile. The patient is hemodynamically stable, not on pressor support. FiO2 is currently at 40% with the aid of PEEP. No significant purulent secretions through the ET or any diarrhea reported. PHYSICAL EXAMINATION: Blood pressure 114/53 with a pulse of 87, temperature 98. He is 96% on 40% FiO2. General description is a middle-aged male intubated on the vent. Respiratory system: Unlabored breathing, decreased breath sounds at the base. No wheeze. Heart S1, S2. Regular rate and rhythm. Abdomen soft, no tenderness. LABS: Hemoglobin is 12.5, white count 6.9, BUN of 37, creatinine 0.86. DIAGNOSTIC IMPRESSION AND PLAN: Patient with acute respiratory failure which is likely multifactorial in this patient who did have a component of acute Covid-19. The patient is covered with Plaquenil and Tobramycin, steroids to continue and will monitor clinical course closely. Prognosis remains to be guarded. MMODL / IJN: [id number] /
[2020-01-31 20:17] LABS: Hemoglobin A1C 6.3 % (4.0-6.0)
[2020-01-31 23:57] LABS: Glucose,Whole Blood 164 mg/dL (75-99)
[2020-02-01] MEDS: fentaNYL (PF) 1,000 MCG in SODIUM CHLORIDE 0.9% 80 ML IV SCH ×3 (02:06→23:14)
[2020-02-01] MEDS: NOREPINEPHRINE 8 MG in SODIUM CHLORIDE 0.9% 250 ML IV SCH ×2 (02:11→20:52)
[2020-02-01 02:46] LABS: Glucose,Whole Blood 145 mg/dL (75-99)
[2020-02-01] MEDS: PROPOFOL 1,000 MG in EMPTY BAG 1 BAG IV SCH ×8 (02:47→22:05)
[2020-02-01] MEDS: ARTIFICIAL TEARS-HYPROMELLOSE DROPS 15 ML BTL BOTH EYES SCH ×6 (02:48→19:56)
[2020-02-01] MEDS: INSULIN ASPART (NovoLOG) 100 UNIT/ML VIAL SQ SCH ×4 (02:49→17:54)
[2020-02-01 05:45] LABS: Basophils % (A) 0 %; Eosinophils # (A) 0.1 k/uL (0-0.7); Eosinophils % (A) 2 %; HCT 36.6 % (39.0-53.0); HGB 11.9 gm/dL (13.0-17.5); Hypochromasia Moderate; Lymphocytes # (A) 0.4 k/uL (1.0-4.8); Lymphocytes % (A) 9 %; MCH 30.2 pg (25.0-35.0); MCHC 32.4 g/dL (31.0-37.0); MCV 93.2 fL (80.0-100.0); Mean Platelet Volume 7.9; Monocytes # (A) 0.1 k/uL (0-1.0); Monocytes % (A) 2 %; Neutrophils # (A) 3.6 k/uL (1.3-7.7); Neutrophils % (A) 86 %; Platelet Count 266 k/uL (150-450); Poikilocytosis Slight; RBC 3.92 m/uL (4.30-5.90); RDW 14.8 % (11.5-15.5); WBC 4.2 k/uL (3.8-10.6)
[2020-02-01 05:52] LABS: ALT 67 U/L (4-49); AST 30 U/L (17-59); African American GFR (CKD) >90 (>60 ml/min/1.73 sqM); Albumin 2.3 g/dL (3.5-5.0); Alkaline Phosphatase 96 U/L (38-126); Anion Gap -2 mmol/L; Blood Urea Nitrogen 30 mg/dL (9-20); C Reactive Protein 42.7 mg/L (<10.0); Calcium 8.1 mg/dL (8.4-10.2); Carbon Dioxide 36 mmol/L (22-30); Chloride 111 mmol/L (98-107); Creatine Kinase 29 U/L (55-170); Glucose 143 mg/dL (74-99); LDH 693 U/L (313-618); Non-African American GFR(CKD) >90 (>60 ml/min/1.73 sqM); Potassium 4.8 mmol/L (3.5-5.1); Sodium 145 mmol/L (137-145); Total Bilirubin 0.4 mg/dL (0.2-1.3); Total Protein 4.8 g/dL (6.3-8.2)
[2020-02-01 06:02] LABS: Glucose,Whole Blood 125 mg/dL (75-99)
[2020-02-01] MEDS: CISATRACURIUM 200 MG in SODIUM CHLORIDE 0.9% 180 ML IV SCH ×2 (06:47→19:55)
--- NOTE | 2020-02-01 07:01 | XR ---
EXAMINATION TYPE: XR chest 1V portable DATE OF EXAM: 02/01/2020 HISTORY: Tube placement. REFERENCE: Previous study dated 411 2. FINDINGS: The patient's ET tube, NG tube and left internal jugular catheter remain in place, unchange d in appearance. The heart is not enlarged. There is bilateral, patchy airspace disease. There is blunting of both CP angles. I could not exclude small effusions. IMPRESSION: 1. CONTINUING, PATCHY, BILATERAL INFILTRATES, NOT MUCH CHANGED FROM PREVIOUS. 2. I CANNOT EXCLUDE SMALL, BILATERAL EFFUSIONS.
[2020-02-01] MEDS: ZINC SULFATE 220 MG CAP PO SCH (08:18)
[2020-02-01] MEDS: PANTOPRAZOLE 40 MG TABLET PO SCH (08:18)
[2020-02-01] MEDS: CHLORHEXIDINE GLUCONATE 15 ML CUP MUCOUS MEM SCH ×2 (08:18→20:57)
[2020-02-01] MEDS: methylPREDNISolone SOD SUCCI 40 MG/ML 1 ML VIAL IV SCH ×2 (08:18→20:57)
[2020-02-01] MEDS: ALBUTEROL HFA INHALER INHALATION SCH ×4 (08:19→19:48)
[2020-02-01 08:22] LABS: ABG Base Excess 10.4 mmol/L; ABG HCO3 36 mmol/L (21-25); ABG Oxygen Saturation 92.6 % (94-97); ABG PCO2 63 mmHg (35-45); ABG PH 7.37 (7.35-7.45); ABG PO2 63 mmHg (83-108); ABG TCO2 38 mmol/L (19-24); Allen Test Performed? Yes
[2020-02-01] MEDS: POTASSIUM CHLORIDE ER 10 MEQ TAB.ER.PRT PO SCH (08:52)
[2020-02-01 12:05] LABS: Glucose,Whole Blood 129 mg/dL (75-99)
--- NOTE | 2020-02-01 12:45 | P.PN ---
Subjective Progress Note Date: 02/01/20 Principal diagnosis: acute covid 19 pneumonitis was asked to evaluate this patient who is a 64-year-old male who has been diagnosed having acute covid 19 pneumonia and the patient has been progressively becoming hypoxic as the patient was on few liters about 2 by nasal cannula and subsequently dioxin fluids and she is up to 6 L and then 8 L and currently is on 10 L of oxygen by nasal cannula. The decompensation of worsening the oxygenation has occurred over the past 24 hours. At this point in time the patient is having difficulty breathing which is mild. He has a dry cough. He is sleeping in a prone body position. Seems to be making him more comfortable. While on 10 L of oxygen, is pulse oxing around 96%. His heart rate is at 59. BP is 111/67. He was having on and off low-grade fever throughout the hospitalization and his last temperature spike was 100.3 from 01/24/2020 at 8:00 in the evening. He was given doxycycline Rocephin and Plaquenil. He was placed on zinc sulfate and I also added IV Solu-Medrol 40 mg every 12 hours. The patient had a chest x-ray showing worsening bilateral pulmonary infiltrates and pneumonia compared to the original chest x-ray that was done on 01/23/2020. The blood gas today that was done on a 65% FiO2 showed a pH of 7.46 with a pCO2 of 26 and pO2 of 63 consistent with hypoxemia and respiratory alkalosis. White cell count was suppressed at 3.1. The patient has lymphopenia with a lymphocyte count of 0.2. The patient had a pro-calcitonin level of 0.17. LDH level was 1067 at a time of admission and hasn't been rechecked.. This patient got chest her dose from [facility]. He reported diarrhea around 3 weeks ago and his been having progressive shortness of breath over the past 2-3 weeks. He denies having any body aches. He is extensively fatigued. He was in [place] for spring. He has history of rheumatoid arthritis and the patient has been taking methotrexate for many years regarding his RA On 01/26/2020 patient seen in follow-up on medical surgical floor. Is currently on 11 L per high flow oxygen, his pulse ox is 93%, he is been afebrile, hemodynamically patient is stable, non-tachycardic. Yesterday's chest x-ray has been reviewed showing worsening bilateral pneumonias, patient is on combination of doxycycline, Rocephin, hydroxy chloroquine, and IV Solu-Medrol 40 mg every 12 hours, patient is on zinc 220 mg daily, and Ventolin inhaler. Still dyspnea, but no acute distress. Follow-up labs have been reviewed today, white blood cell count is up to 5.9, hemoglobin is 12.8, sodium is 138, potassium is 3.3, yesterday's LDH was trending up, and CRP was also trending up. Pro-calcitonin was in the intermediate range of 0.17. Lung sounds reveal crackles at bilateral bases. He states although she is still short of breath he overall feels somewhat better. On 01/27/2020 patient seen in follow-up on medical surgical floor. Patient is awake and alert, his oxygenation demand did increase overnight, he is currently on 13 L per high flow nasal cannula, he is satting about 93%, however he appears to be in no acute distress, mildly dyspneic, still has a dry cough, lung sounds reveal some crackles in bilateral lungs, no rhonchi or wheezing, patient is positive for Covid 19 infection, and she remains on a regime of hydroxychloroquine, IV Solu-Medrol, Rocephin and doxycycline. Afebrile. Today's chest x-ray has been reviewed showing persistent diffuse interstitial infiltrates, improved lung volumes with some improvement in aeration of the lung bases. Continue current medical treatment, today's labs have been reviewed, d- dimer is up to 1.44, no leukocytosis, hemoglobin is 12.1, sodium is 137, potassium 3.3, chloride is 109, CO2 is 20, B1 is 14 creatinine 0.70, LDH slightly trended up to 1728, CK is 29, CRP has significantly improved and is down to 49 On 01/28/2020 patient seen in follow-up on general medical floor. He is Covid 19 positive, FiO2 is down to 11 L on today's exam, from 13 L on yesterday's exam, his pulse ox is 92%. We will to be in any acute distress, breathing is comfortable, lung sounds reveal some minimal crackles at bilateral bases, patient remains on Rocephin, azithromycin has been discontinued, and he has completed a course of Plaquenil. Afebrile in the last 24 hours. Patient was reevaluated today on 01/29/20, he was seen on the regular medical floor, and he is on high flow nasal cannula at 13 L/m, O2 saturation is marginal anywhere between 90-94% at best patient has shortness of breath, but does not seem to be in distress. He is breathing very comfortably. His chest x-ray showed slight worsening. Crackles at the bases bilaterally noted. After evaluating the patient, and considering that his O2 saturation has been fluctuating between 84 and 95%, I recommended observing the patient in the ICU, and I transferred the patient to the ICU. ABG on high flow nasal cannula showed a pO2 of 64 he CO2 of 31 pH of 7.52. His d-dimer is 2.30. CBC is normal basic metabolic profile is normal however his LDH is 6. C-reactive protein is 47. Reevaluated today on 01/30/20, patient was transferred yesterday to the intensive care unit, and around midnight, patient desaturated significantly, and we could not maintain his O2 saturation in the 90s. Patient was also noted by the nurse taking care of him to become more tachypneic, and he was using more and more of his accessory muscles. I was notified about the patient, and I recommended immediate intubation. Patient is now on mechanical ventilation, his ventilatory settings are assist control rate of 20 and this was increased to 26. His tidal volume was 450 assist-control rate FiO2 of 60% which was cut down to 50%, and PEEP was at 5 however I increased the PEEP to 10 today. I increased the flow rate to 70 L/m. Patient seems to be clinically dry, hence I recommended a liter of IV fluid in the form of 0.9 normal saline. I have also recommended that he remains on propofol at 50 fentanyl at 0.25 mcg/kg/h, and he is on Nimbex. Chest x-ray clearly shows evidence of diffuse interstitial infiltrates consistent with covid 19 pneumonitis. ABG this morning showed a pO2 of 116 pCO2 of 88 pH of 7.13, hence adjustment was made on his ventilatory settings. And rate was increased. PEEP was increased. And FiO2 was brought down to 50%. LDH today is 1827. And C-reactive protein is 47.4. Patient was reevaluated today on 01/31/20, remains intubated and mechanically ventilated. Patient is on assist control rate of 26 tidal volume is 450 FiO2 is 40% and PEEP is 10 however I cut it down to 8 today. And increased his rate to 30. Kept him on the same tidal volume of 4.50. The reason I made the change was because of his ABG showing pO2 of 116 pCO2 of 67 and pH of 7.27. His inflammatory markers are trending down. C-reactive protein is 44. Peak airway pressure is 26, plateau pressure is 21. Patient remains on propofol at 3 0 mcg/kg/m, fentanyl at 0.5 mcg/kg/h and on Nimbex at 3 mcg/kg/m. Off norepinephrine, remains on IV fluid 0.9 normal saline at 50 mL per hour.remains on enteral feeding.labs and chest x-ray were reviewed.chest x-ray continues to show patchy bilateral interstitial infiltrates Reevaluated today on 02/01/20, patient remains in the ICU, intubated and mechanically ventilated. His ventilator settings are assist control rate of 30 tidal volume is 450 FiO2 is 40% and I increased to 45%. PEEP is at 8. Patient remains on fentanyl 0.5 Nimbex at 3 g and propofol at 60 mcg/kg/m. Chest x-ray continues to show patchy bilateral infiltrates, not much of a significant change since yesterday. ABG showed a pO2 of 63 pCO2 of 63 pH of 7.37, hence FiO2 was increased to 40% and The same at 8. CBC is relatively normal. Lymphocytes remain low however. Platelets are normal. D-dimer is 1.40. Basic metabolic profile is normal. LDH is improving, down to 693 from as high as over 2000. C- reactive protein is down from 201 now it is 42.7, steadily improving. Hence considering the improvement, and considering the patient has less O2 requirement, I would likely hold Nimbex today, assess the patient off Nimbex and decide whether we could further wean or hold sedation and give the patient any weaning trial possibly today or in the next 24 hours. Objective - Vital Signs Vital signs: Vital Signs Temp 98.6 F 02/01/20 08:00 Pulse 82 02/01/20 11:30 Resp 30 H 02/01/20 11:30 BP 116/69 02/01/20 07:00 Pulse Ox 93 L 02/01/20 11:30 Intake & Output 01/31/20 02/01/20 02/01/20 18:59 06:59 18:59 Intake Total 7430.291 4314.833 944.339 Output Total 1415 940 730 Balance 245.863 5728.833 214.339 Weight 95.5 kg 95.5 kg 95.5 kg Intake: IV 672 616 280 Normal Saline Pressure 72 116 30 Bag Sodium Chloride 0.9% 1, 600 500 250 000 ml @ 50 mls/hr IV . Q20H [facility] Rx#:[id number] Intake, IV Titration 520.847 690.833 349.339 Amount Cisatracurium 200 mg In 186.930 373.023 58.032 Sodium Chloride 0.9% 180 ml @ 1 MCG/KG/MIN 5.58 mls/hr IV .Q24H [facility] Rx#: [id number] Norepinephrine 8 mg In 13.438 21.546 Sodium Chloride 0.9% 250 ml @ 0.05 MCG/KG/MIN 8. 504 mls/hr IV .Q24H [facility] Rx#:[id number] Propofol 1,000 mg In 270.479 296.264 200 Empty Bag 1 bag @ Titrate IV .Q0M [facility] Rx#: [id number] cefTRIAXone 1 gm In 50 50 Sodium Chloride 0.9% 50 ml @ 100 mls/hr IVPB Q24HR [facility] Rx#:[id number] fentaNYL (PF) 1,000 mcg 41.307 In Sodium Chloride 0.9% 80 ml @ 0.5 MCG/KG/HR 4. 65 mls/hr IV .[id number] [facility] Rx#:[id number] Oral 200 Tube Feeding 516 588 245 Other 150 90 70 Output: Urine 1415 940 730 Other: Voiding Method Indwelling Catheter Indwelling Catheter Indwelling Catheter ABP, PAP, CO, CI - Last Documented Arterial Blood Pressure 116/54 - Exam GENERAL EXAM: Alert, very pleasant, 64-year-old white male, on mechanical ventilation, sedated and paralyzed. HEENT: PERRLA, EOMI, no active, dry mucous membranes, no neck masses, no JVD, no stridor. CHEST: No chest wall deformity. Symmetrical expansion. LUNGS: Fine basilar crackles throughout. CVS: Regular rate and rhythm, normal S1 and S2, no gallops, no murmurs, no rubs ABDOMEN: Soft, nontender. No hepatosplenomegaly, normal bowel sounds, no guarding or rigidity. EXTREMITIES: No clubbing, no edema, no cyanosis, 2+ pulses and upper and lower extremities. MUSCULOSKELETAL: Muscle tone normal. SKIN: No rashes CENTRAL NERVOUS SYSTEM: Sedated, paralyzed, could not be assessed. PSYCHIATRIC: Could not be assessed - Labs CBC & Chem 7: 02/01/20 04:15 02/01/20 04:15 Labs: Abnormal Lab Results - Last 24 Hours (Table) 01/31/20 01/31/20 01/31/20 Range/Units 04:10 18:00 23:56 RBC (4.30-5.90) m/uL Hgb (13.0-17.5) gm/dL Hct (39.0-53.0) % Lymphocytes # (1.0-4.8) k/uL D-Dimer (<0.60) mg/L FEU ABG pCO2 (35-45) mmHg ABG pO2 (83-108) mmHg ABG HCO3 (21-25) mmol/L ABG Total CO2 (19-24) mmol/L ABG O2 Saturation (94-97) % Chloride (98-107) mmol/L Carbon Dioxide (22-30) mmol/L BUN (9-20) mg/dL Glucose (74-99) mg/dL POC Glucose (mg/dL) 109 H 164 H (75-99) mg/dL Hemoglobin A1c 6.3 H (4.0-6.0) % Calcium (8.4-10.2) mg/dL ALT (4-49) U/L Lactate Dehydrogenase (313-618) U/L Creatine Kinase (55-170) U/L C-Reactive Protein (<10.0) mg/L Total Protein (6.3-8.2) g/dL Albumin (3.5-5.0) g/dL 02/01/20 02/01/20 02/01/20 Range/Units 02:45 04:15 04:15 RBC 3.92 L (4.30-5.90) m/uL Hgb 11.9 L (13.0-17.5) gm/dL Hct 36.6 L (39.0-53.0) % Lymphocytes # 0.4 L (1.0-4.8) k/uL D-Dimer 1.40 H (<0.60) mg/L FEU ABG pCO2 (35-45) mmHg ABG pO2 (83-108) mmHg ABG HCO3 (21-25) mmol/L ABG Total CO2 (19-24) mmol/L ABG O2 Saturation (94-97) % Chloride (98-107) mmol/L Carbon Dioxide (22-30) mmol/L BUN (9-20) mg/dL Glucose (74-99) mg/dL POC Glucose (mg/dL) 145 H (75-99) mg/dL Hemoglobin A1c (4.0-6.0) % Calcium (8.4-10.2) mg/dL ALT (4-49) U/L Lactate Dehydrogenase (313-618) U/L Creatine Kinase (55-170) U/L C-Reactive Protein (<10.0) mg/L Total Protein (6.3-8.2) g/dL Albumin (3.5-5.0) g/dL 02/01/20 02/01/20 02/01/20 Range/Units 04:15 06:00 08:14 RBC (4.30-5.90) m/uL Hgb (13.0-17.5) gm/dL Hct (39.0-53.0) % Lymphocytes # (1.0-4.8) k/uL D-Dimer (<0.60) mg/L FEU ABG pCO2 63 H (35-45) mmHg ABG pO2 63 L (83-108) mmHg ABG HCO3 36 H (21-25) mmol/L ABG Total CO2 38 H (19-24) mmol/L ABG O2 Saturation 92.6 L (94-97) % Chloride 111 H (98-107) mmol/L Carbon Dioxide 36 H (22-30) mmol/L BUN 30 H (9-20) mg/dL Glucose 143 H (74-99) mg/dL POC Glucose (mg/dL) 125 H (75-99) mg/dL Hemoglobin A1c (4.0-6.0) % Calcium 8.1 L (8.4-10.2) mg/dL ALT 67 H (4-49) U/L Lactate Dehydrogenase 693 H (313-618) U/L Creatine Kinase 29 L (55-170) U/L C-Reactive Protein 42.7 H (<10.0) mg/L Total Protein 4.8 L (6.3-8.2) g/dL Albumin 2.3 L (3.5-5.0) g/dL 02/01/20 Range/Units 12:03 RBC (4.30-5.90) m/uL Hgb (13.0-17.5) gm/dL Hct (39.0-53.0) % Lymphocytes # (1.0-4.8) k/uL D-Dimer (<0.60) mg/L FEU ABG pCO2 (35-45) mmHg ABG pO2 (83-108) mmHg ABG HCO3 (21-25) mmol/L ABG Total CO2 (19-24) mmol/L ABG O2 Saturation (94-97) % Chloride (98-107) mmol/L Carbon Dioxide (22-30) mmol/L BUN (9-20) mg/dL Glucose (74-99) mg/dL POC Glucose (mg/dL) 129 H (75-99) mg/dL Hemoglobin A1c (4.0-6.0) % Calcium (8.4-10.2) mg/dL ALT (4-49) U/L Lactate Dehydrogenase (313-618) U/L Creatine Kinase (55-170) U/L C-Reactive Protein (<10.0) mg/L Total Protein (6.3-8.2) g/dL Albumin (3.5-5.0) g/dL Assessment and Plan Assessment: acute covid 19 pneumonitis. acute hypoxic respiratory failure secondary to above. Patient required intubation and mechanical ventilation , FiO2 is at 45% PEEP is at 8 and assist control rate 30, volume is 450. Acute hypercapnic respiratory failure secondary to severe pneumonitis secondary to covid 19. diarrhea due to GI manifestation of Covid 19 infection, improved lymphopenia secondary to Covid 19 infection Recommendation: Continue ventilatory support. Continue nutritional support. /enteral feeding. Ventilator settings were adjusted.Will recommend holding Nimbex, and determine whether the patient is ready for sedation interruption and possibly weaning parameters and weaning trial. Continue protocol. For treatment of his pneumonitis. Patient is critically ill. Critical care time is 34 minutes not including the time spent on procedures. We'll continue to follow. Time with Patient: Greater than 30
[2020-02-01] MEDS: SODIUM CHLORIDE 0.9% 1,000 ML IV SCH (12:57)
--- NOTE | 2020-02-01 14:53 | P.PN ---
Subjective Progress Note Date: 02/01/20 Principal diagnosis: COVID 19 64-year-old male was admitted for acute hypoxic respiratory failure secondary to COVID 19 diagnosis. He was started on hydroxychloroquine, Rocephin and doxycycline along with albuterol inhaler and placed on droplet precautions. He was started on low-dose IV steroids and given supplemental O2 maintain maintain O2 saturation greater than 92%. He was initially on 6 L nasal cannula which progressively increased to 15 L high flow. Awake proning was attempted without much relief. Patient continued to deteriorate and pulmonology was consulted. Pulmonology recommended transfer to ICU for closer monitoring on 01/29/2020. He was intubated on 01/30/2020 overnight. He continues to be intubated into 02/01/2020. Patient was seen and examined. He continues to be intubated. Rate is at 30. Tidal volume 450. FiO2 45%. PEEP is at 8. D-dimer improved from 2.09 to 1.4. Ferritin and CRP slowly down trending. Liver enzymes stable. LDH downtrending. Objective - Vital Signs Vital signs: Vital Signs Temp 99.0 F 02/01/20 12:00 Pulse 73 02/01/20 14:00 Resp 30 H 02/01/20 14:00 BP 116/69 02/01/20 07:00 Pulse Ox 93 L 02/01/20 14:00 Intake & Output 01/31/20 02/01/20 02/01/20 18:59 06:59 18:59 Intake Total 5666.402 1665.833 1466.443 Output Total 4463 487 0916 Balance 990.539 1575.833 461.443 Weight 95.5 kg 95.5 kg 95.5 kg Intake: IV 672 616 448 Normal Saline Pressure 72 116 48 Bag Sodium Chloride 0.9% 1, 600 500 400 000 ml @ 50 mls/hr IV . Q20H [facility] Rx#:[id number] Intake, IV Titration 520.847 690.833 477.443 Amount Cisatracurium 200 mg In 186.930 373.023 86.816 Sodium Chloride 0.9% 180 ml @ 1 MCG/KG/MIN 5.58 mls/hr IV .Q24H [facility] Rx#: [id number] Norepinephrine 8 mg In 13.438 21.546 Sodium Chloride 0.9% 250 ml @ 0.05 MCG/KG/MIN 8. 504 mls/hr IV .Q24H [facility] Rx#:[id number] Propofol 1,000 mg In 270.479 296.264 299.320 Empty Bag 1 bag @ Titrate IV .Q0M [facility] Rx#: [id number] cefTRIAXone 1 gm In 50 50 Sodium Chloride 0.9% 50 ml @ 100 mls/hr IVPB Q24HR [facility] Rx#:[id number] fentaNYL (PF) 1,000 mcg 41.307 In Sodium Chloride 0.9% 80 ml @ 0.5 MCG/KG/HR 4. 65 mls/hr IV .[id number] [facility] Rx#:[id number] Oral 200 Tube Feeding 516 588 441 Other 150 90 100 Output: Urine 4722 080 7868 Other: Voiding Method Indwelling Catheter Indwelling Catheter Indwelling Catheter ABP, PAP, CO, CI - Last Documented Arterial Blood Pressure 102/52 - Exam General: [non toxic], [intubated], [appears at stated age] Derm: [warm], [dry] Head: [atraumatic], [normocephalic], [symmetric] Eyes: [EOMI], [no lid lag], [anicteric sclera] Mouth: [no lip lesion], [mucus membranes moist] Cardiovascular: [S1S2 reg], [tachycardic], [positive DP pulse bilateral], Lungs: [Coarse breath sounds bilateral], [no rhonchi, no rales] , [no accessory muscle use] Abdominal: [soft], [ nontender to palpation], [no guarding], [no appreciable organomegaly] Ext: [no gross muscle atrophy], [no edema], [no contractures] Neuro: [Unable to determine] Psych: [Unable to determine] - Labs CBC & Chem 7: 02/01/20 04:15 02/01/20 04:15 Labs: Abnormal Lab Results - Last 24 Hours (Table) 01/31/20 01/31/20 01/31/20 Range/Units 04:10 18:00 23:56 RBC (4.30-5.90) m/uL Hgb (13.0-17.5) gm/dL Hct (39.0-53.0) % Lymphocytes # (1.0-4.8) k/uL D-Dimer (<0.60) mg/L FEU ABG pCO2 (35-45) mmHg ABG pO2 (83-108) mmHg ABG HCO3 (21-25) mmol/L ABG Total CO2 (19-24) mmol/L ABG O2 Saturation (94-97) % Chloride (98-107) mmol/L Carbon Dioxide (22-30) mmol/L BUN (9-20) mg/dL Glucose (74-99) mg/dL POC Glucose (mg/dL) 109 H 164 H (75-99) mg/dL Hemoglobin A1c 6.3 H (4.0-6.0) % Calcium (8.4-10.2) mg/dL ALT (4-49) U/L Lactate Dehydrogenase (313-618) U/L Creatine Kinase (55-170) U/L C-Reactive Protein (<10.0) mg/L Total Protein (6.3-8.2) g/dL Albumin (3.5-5.0) g/dL 02/01/20 02/01/20 02/01/20 Range/Units 02:45 04:15 04:15 RBC 3.92 L (4.30-5.90) m/uL Hgb 11.9 L (13.0-17.5) gm/dL Hct 36.6 L (39.0-53.0) % Lymphocytes # 0.4 L (1.0-4.8) k/uL D-Dimer 1.40 H (<0.60) mg/L FEU ABG pCO2 (35-45) mmHg ABG pO2 (83-108) mmHg ABG HCO3 (21-25) mmol/L ABG Total CO2 (19-24) mmol/L ABG O2 Saturation (94-97) % Chloride (98-107) mmol/L Carbon Dioxide (22-30) mmol/L BUN (9-20) mg/dL Glucose (74-99) mg/dL POC Glucose (mg/dL) 145 H (75-99) mg/dL Hemoglobin A1c (4.0-6.0) % Calcium (8.4-10.2) mg/dL ALT (4-49) U/L Lactate Dehydrogenase (313-618) U/L Creatine Kinase (55-170) U/L C-Reactive Protein (<10.0) mg/L Total Protein (6.3-8.2) g/dL Albumin (3.5-5.0) g/dL 02/01/20 02/01/20 02/01/20 Range/Units 04:15 06:00 08:14 RBC (4.30-5.90) m/uL Hgb (13.0-17.5) gm/dL Hct (39.0-53.0) % Lymphocytes # (1.0-4.8) k/uL D-Dimer (<0.60) mg/L FEU ABG pCO2 63 H (35-45) mmHg ABG pO2 63 L (83-108) mmHg ABG HCO3 36 H (21-25) mmol/L ABG Total CO2 38 H (19-24) mmol/L ABG O2 Saturation 92.6 L (94-97) % Chloride 111 H (98-107) mmol/L Carbon Dioxide 36 H (22-30) mmol/L BUN 30 H (9-20) mg/dL Glucose 143 H (74-99) mg/dL POC Glucose (mg/dL) 125 H (75-99) mg/dL Hemoglobin A1c (4.0-6.0) % Calcium 8.1 L (8.4-10.2) mg/dL ALT 67 H (4-49) U/L Lactate Dehydrogenase 693 H (313-618) U/L Creatine Kinase 29 L (55-170) U/L C-Reactive Protein 42.7 H (<10.0) mg/L Total Protein 4.8 L (6.3-8.2) g/dL Albumin 2.3 L (3.5-5.0) g/dL 02/01/20 Range/Units 12:03 RBC (4.30-5.90) m/uL Hgb (13.0-17.5) gm/dL Hct (39.0-53.0) % Lymphocytes # (1.0-4.8) k/uL D-Dimer (<0.60) mg/L FEU ABG pCO2 (35-45) mmHg ABG pO2 (83-108) mmHg ABG HCO3 (21-25) mmol/L ABG Total CO2 (19-24) mmol/L ABG O2 Saturation (94-97) % Chloride (98-107) mmol/L Carbon Dioxide (22-30) mmol/L BUN (9-20) mg/dL Glucose (74-99) mg/dL POC Glucose (mg/dL) 129 H (75-99) mg/dL Hemoglobin A1c (4.0-6.0) % Calcium (8.4-10.2) mg/dL ALT (4-49) U/L Lactate Dehydrogenase (313-618) U/L Creatine Kinase (55-170) U/L C-Reactive Protein (<10.0) mg/L Total Protein (6.3-8.2) g/dL Albumin (3.5-5.0) g/dL Assessment and Plan Assessment: Acute hypoxic respiratory failure, COVID 19 pneumonia Immunocompromised secondary to methotrexate for history of rheumatoid arthritis Elevated BUN Anemia Patient continues to require ventilatory support. This is being managed by pulmonology. As per pulmonology plans to wean Nimbex for plans to extubate soon. He has completed his course of hydroxychloroquine. Doxycycline has been discontinued and he will be continued on Rocephin for the time being. He will be continued on IV steroids and zinc. He is on contact and droplet precautions. Infectious disease and pulmonology is following. His BUN has improved from yesterday which is likely prerenal in nature and he will be continued on normal saline at 50 mL per hour. His hemoglobin of 11.9 is likely dilutional and will be monitored with daily CBC. Plan is repeat chest x-ray tomorrow. Repeat CRP, CMP, CPK, d-dimer, ferritin and LDH tomorrow. He is pending clinical improvement. Prognosis is extremely guarded at this time.
[2020-02-01] MEDS: ENOXAPARIN 40 MG/0.4 ML SYRINGE SQ SCH (15:56)
[2020-02-01 17:49] LABS: Glucose,Whole Blood 144 mg/dL (75-99)
--- NOTE | 2020-02-01 22:13 | PN ---
PROGRESS NOTE DATE OF SERVICE: 02/01/2020 REASON FOR FOLLOWUP: Acute COVID-19 pneumonia. INTERVAL HISTORY: The patient is currently afebrile. The patient is hemodynamically stable. FiO2 is currently 45%. No significant purulent secretions through ET or diarrhea has been reported. The patient is currently sedated on the vent. PHYSICAL EXAMINATION: Blood pressure 144/57 with a pulse of 92, temperature 98.1. He is 94% on 45% FiO2. General description is a middle-aged male, intubated on the vent. Respiratory system: Unlabored breathing, decreased breath sounds at the base. No wheeze. HEART: S1, S2. Regular rate and rhythm. Abdomen soft, no tenderness. LABS: Hemoglobin is 11.8, white count 4.2, BUN of 30, creatinine 0.66. DIAGNOSTIC IMPRESSION AND PLAN: Patient with acute COVID-19 pneumonia. The patient is currently covered with Solu- Medrol, zinc, has completed his Plaquenil therapy and Zithromax hence clinical response. Monitor clinical course closely. NAGI / ALANAN: [id number] / MTDD
[2020-02-01] MEDS: METOPROLOL TARTRATE 12.5 MG TAB PO PRN (22:35)
[2020-02-01 23:56] LABS: Glucose,Whole Blood 143 mg/dL (75-99)
[2020-02-02] MEDS: INSULIN ASPART (NovoLOG) 100 UNIT/ML VIAL SQ SCH ×4 (00:11→18:17)
[2020-02-02] MEDS: ARTIFICIAL TEARS-HYPROMELLOSE DROPS 15 ML BTL BOTH EYES SCH ×6 (00:12→19:52)
[2020-02-02] MEDS: PROPOFOL 1,000 MG in EMPTY BAG 1 BAG IV SCH ×9 (00:19→21:44)
[2020-02-02 03:26] LABS: ABG Base Excess 10.2 mmol/L; ABG HCO3 36 mmol/L (21-25); ABG PCO2 65 mmHg (35-45); ABG PH 7.35 (7.35-7.45); ABG PO2 60 mmHg (83-108); ABG TCO2 38 mmol/L (19-24); Allen Test Performed? Yes
[2020-02-02 03:33] LABS: ABG Oxygen Saturation 90.1 % (94-97)
[2020-02-02 04:14] LABS: Basophils % (A) 0 %; Eosinophils # (A) 0.1 k/uL (0-0.7); Eosinophils % (A) 1 %; HCT 38.6 % (39.0-53.0); HGB 12.5 gm/dL (13.0-17.5); Hypochromasia Slight; Lymphocytes # (A) 0.6 k/uL (1.0-4.8); Lymphocytes % (A) 9 %; MCH 30.5 pg (25.0-35.0); MCHC 32.4 g/dL (31.0-37.0); MCV 93.9 fL (80.0-100.0); Mean Platelet Volume 8.1; Monocytes # (A) 0.1 k/uL (0-1.0); Monocytes % (A) 2 %; Neutrophils # (A) 5.9 k/uL (1.3-7.7); Neutrophils % (A) 87 %; Platelet Count 240 k/uL (150-450); RBC 4.11 m/uL (4.30-5.90); RDW 14.9 % (11.5-15.5); WBC 6.7 k/uL (3.8-10.6)
[2020-02-02 04:26] LABS: ALT 78 U/L (4-49); AST 45 U/L (17-59); African American GFR (CKD) >90 (>60 ml/min/1.73 sqM); Albumin 2.4 g/dL (3.5-5.0); Alkaline Phosphatase 97 U/L (38-126); Anion Gap -2 mmol/L; Blood Urea Nitrogen 30 mg/dL (9-20); C Reactive Protein 60.8 mg/L (<10.0); Carbon Dioxide 39 mmol/L (22-30); Chloride 109 mmol/L (98-107); Creatine Kinase 30 U/L (55-170); Glucose 134 mg/dL (74-99); LDH 690 U/L (313-618); Non-African American GFR(CKD) >90 (>60 ml/min/1.73 sqM); Potassium 4.6 mmol/L (3.5-5.1); Sodium 146 mmol/L (137-145); Total Bilirubin 0.5 mg/dL (0.2-1.3); Total Protein 4.9 g/dL (6.3-8.2)
[2020-02-02 05:57] LABS: Glucose,Whole Blood 136 mg/dL (75-99)
[2020-02-02] MEDS: METOPROLOL TARTRATE 5 MG/5 ML VIAL IVP PRN ×2 (06:04→12:21)
[2020-02-02] MEDS: fentaNYL (PF) 1,000 MCG in SODIUM CHLORIDE 0.9% 80 ML IV SCH ×3 (06:29→20:21)
--- NOTE | 2020-02-02 07:45 | XR ---
EXAMINATION TYPE: XR chest 1V portable DATE OF EXAM: 02/02/2020 COMPARISON: 02/01/2020 HISTORY: SOB, Follow Up FINDINGS: Indwelling tubes and catheters are unchanged. Perihilar and basilar infiltrates persist with small pleural effusions. Stable appearance of the cardio-mediastinal structures at this time. IMPRESSION: 1. Stable portable chest. Clinical correlation and follow up until resolution is recommended.
[2020-02-02] MEDS: ALBUTEROL HFA INHALER INHALATION SCH ×4 (08:39→21:06)
[2020-02-02] MEDS: CHLORHEXIDINE GLUCONATE 15 ML CUP MUCOUS MEM SCH ×2 (09:05→20:01)
[2020-02-02] MEDS: PANTOPRAZOLE 40 MG TABLET PO SCH (09:05)
[2020-02-02] MEDS: methylPREDNISolone SOD SUCCI 40 MG/ML 1 ML VIAL IV SCH ×2 (09:05→20:01)
[2020-02-02] MEDS: ACETAMINOPHEN TAB 325 MG TAB PO PRN ×2 (09:23→19:59)
[2020-02-02] MEDS: METOPROLOL TARTRATE 12.5 MG TAB PO PRN (09:23)
[2020-02-02] MEDS: ZINC SULFATE 220 MG CAP PO SCH (09:24)
[2020-02-02] MEDS: SODIUM CHLORIDE 0.9% 1,000 ML IV SCH (09:27)
[2020-02-02] MEDS: POTASSIUM CHLORIDE ER 10 MEQ TAB.ER.PRT PO SCH (09:27)
[2020-02-02] MEDS ORDERED: LORazepam 2 MG/ML INJ IV STA (09:57)
[2020-02-02 10:39] LABS: Ferritin 709.5 ng/mL (22.0-322.0)
[2020-02-02 12:06] LABS: Glucose,Whole Blood 125 mg/dL (75-99)
--- NOTE | 2020-02-02 12:23 | P.PN ---
Subjective Progress Note Date: 02/02/20 Principal diagnosis: COVID 19 64-year-old male was admitted for acute hypoxic respiratory failure secondary to COVID 19 diagnosis. He was started on hydroxychloroquine, Rocephin and doxycycline along with albuterol inhaler and placed on droplet precautions. He was started on low-dose IV steroids and given supplemental O2 maintain maintain O2 saturation greater than 92%. He was initially on 6 L nasal cannula which progressively increased to 15 L high flow. Awake proning was attempted without much relief. Patient continued to deteriorate and pulmonology was consulted. Pulmonology recommended transfer to ICU for closer monitoring on 01/29/2020. He was intubated on 01/30/2020 overnight. He continues to be intubated into 02/02/2020 Patient examined at bedside nursing reporting increasing episodes of agitation currently on maximal doses of Nimbex on propofol, patient has been tachycardic with heart rate in the 140s, patient continues to be febrile T-max 102.1. Vent settings adjusted currently on 55% FiO2 with a PEEP of +13.chest x-ray stable with perihilar and basilar infiltrates with small pleural effusions Objective - Vital Signs Vital signs: Vital Signs Temp 102.1 F H 02/02/20 11:00 Pulse 120 H 02/02/20 12:00 Resp 30 H 02/02/20 12:00 BP 152/76 02/02/20 12:00 Pulse Ox 94 L 02/02/20 12:00 Intake & Output 02/01/20 02/02/20 02/02/20 18:59 06:59 18:59 Intake Total 2144.958 2255.122 679 Output Total 1380 1115 600 Balance 068.192 5083.122 79 Weight 95.5 kg 96.4 kg Intake: IV 672 672 336 Normal Saline Pressure 72 72 36 Bag Sodium Chloride 0.9% 1, 600 600 300 000 ml @ 50 mls/hr IV . Q20H [facility] Rx#:[id number] Intake, IV Titration 656.958 709.122 Amount Cisatracurium 200 mg In 110.996 50.22 Sodium Chloride 0.9% 180 ml @ 1 MCG/KG/MIN 5.58 mls/hr IV .Q24H [facility] Rx#: [id number] Propofol 1,000 mg In 399.320 471.017 Empty Bag 1 bag @ Titrate IV .Q0M [facility] Rx#: [id number] cefTRIAXone 1 gm In 50 Sodium Chloride 0.9% 50 ml @ 100 mls/hr IVPB Q24HR [facility] Rx#:[id number] fentaNYL (PF) 1,000 mcg 96.642 187.885 In Sodium Chloride 0.9% 80 ml @ 0.5 MCG/KG/HR 4. 65 mls/hr IV .[id number] [facility] Rx#:[id number] Tube Feeding 686 784 343 Other 130 90 Output: Urine 1380 1115 600 Other: Voiding Method Indwelling Catheter Indwelling Catheter Indwelling Catheter # Voids 1 ABP, PAP, CO, CI - Last Documented Arterial Blood Pressure 112/57 - Exam Constitutional: No acute distress, intubated sedated Eyes: Anicteric sclerae, moist conjunctiva, no lid-lag, PERRLA ENMT: NC/AT,Oropharynx clear, no erythema, exudates Neck:Supple, FROM, no masses, or JVD, No carotid bruits; No thyromegaly Lungs: Clear to auscultation, Clear to percussion, Normal respiratory effort, no accessory muscle use Cardiovascular: Regular rhythm and tachycardic, No murmurs, gallops, or rubs no peripheral edema Abdominal: Soft Nontender, nom distended, no guarding, no rebound or rigidity, Normoactive bowel sounds No hepatomegaly, No splenomegaly, No palpable mass No abdominal wall hernia noted Skin: Normal temperature, tone, texture, turgor, No induration No subcutaneous nodules, No rash, lesions, No ulcers Extremities:No digital cyanosis No clubbing, Pedal pulses intact and symmetrical Radial pulses intact and symmetrical Normal gait and station, No calf tenderness Neuro: Episodes of agitation continues to be sedated and intubated - Labs CBC & Chem 7: 02/02/20 04:00 02/02/20 04:00 Labs: Abnormal Lab Results - Last 24 Hours (Table) 02/01/20 02/01/20 02/01/20 Range/Units 04:15 17:47 23:54 RBC (4.30-5.90) m/uL Hgb (13.0-17.5) gm/dL Hct (39.0-53.0) % Lymphocytes # (1.0-4.8) k/uL D-Dimer (<0.60) mg/L FEU ABG pCO2 (35-45) mmHg ABG pO2 (83-108) mmHg ABG HCO3 (21-25) mmol/L ABG Total CO2 (19-24) mmol/L ABG O2 Saturation (94-97) % Sodium (137-145) mmol/L Chloride (98-107) mmol/L Carbon Dioxide (22-30) mmol/L BUN (9-20) mg/dL Creatinine (0.66-1.25) mg/dL Glucose (74-99) mg/dL POC Glucose (mg/dL) 144 H 143 H (75-99) mg/dL Calcium (8.4-10.2) mg/dL Ferritin 709.5 H (22.0-322.0) ng/mL ALT (4-49) U/L Lactate Dehydrogenase (313-618) U/L Creatine Kinase (55-170) U/L C-Reactive Protein (<10.0) mg/L Total Protein (6.3-8.2) g/dL Albumin (3.5-5.0) g/dL 02/02/20 02/02/20 02/02/20 Range/Units 03:24 04:00 04:00 RBC 4.11 L (4.30-5.90) m/uL Hgb 12.5 L (13.0-17.5) gm/dL Hct 38.6 L (39.0-53.0) % Lymphocytes # 0.6 L (1.0-4.8) k/uL D-Dimer (<0.60) mg/L FEU ABG pCO2 65 H (35-45) mmHg ABG pO2 60 L (83-108) mmHg ABG HCO3 36 H (21-25) mmol/L ABG Total CO2 38 H (19-24) mmol/L ABG O2 Saturation 90.1 L (94-97) % Sodium 146 H (137-145) mmol/L Chloride 109 H (98-107) mmol/L Carbon Dioxide 39 H (22-30) mmol/L BUN 30 H (9-20) mg/dL Creatinine 0.62 L (0.66-1.25) mg/dL Glucose 134 H (74-99) mg/dL POC Glucose (mg/dL) (75-99) mg/dL Calcium 8.0 L (8.4-10.2) mg/dL Ferritin (22.0-322.0) ng/mL ALT 78 H (4-49) U/L Lactate Dehydrogenase 690 H (313-618) U/L Creatine Kinase 30 L (55-170) U/L C-Reactive Protein 60.8 H (<10.0) mg/L Total Protein 4.9 L (6.3-8.2) g/dL Albumin 2.4 L (3.5-5.0) g/dL 02/02/20 02/02/20 02/02/20 Range/Units 04:00 05:55 12:04 RBC (4.30-5.90) m/uL Hgb (13.0-17.5) gm/dL Hct (39.0-53.0) % Lymphocytes # (1.0-4.8) k/uL D-Dimer 1.39 H (<0.60) mg/L FEU ABG pCO2 (35-45) mmHg ABG pO2 (83-108) mmHg ABG HCO3 (21-25) mmol/L ABG Total CO2 (19-24) mmol/L ABG O2 Saturation (94-97) % Sodium (137-145) mmol/L Chloride (98-107) mmol/L Carbon Dioxide (22-30) mmol/L BUN (9-20) mg/dL Creatinine (0.66-1.25) mg/dL Glucose (74-99) mg/dL POC Glucose (mg/dL) 136 H 125 H (75-99) mg/dL Calcium (8.4-10.2) mg/dL Ferritin (22.0-322.0) ng/mL ALT (4-49) U/L Lactate Dehydrogenase (313-618) U/L Creatine Kinase (55-170) U/L C-Reactive Protein (<10.0) mg/L Total Protein (6.3-8.2) g/dL Albumin (3.5-5.0) g/dL Assessment and Plan Assessment: Acute hypoxic respiratory failure, COVID 19 pneumonia Immunocompromised secondary to methotrexate for history of rheumatoid arthritis Elevated BUN Anemia Patient continues to require ventilatory support. This is being managed by pulmonology. As per pulmonology plans to wean Nimbex for plans to extubate soon. He has completed his course of hydroxychloroquine. Doxycycline has been discontinued and he will be continued on Rocephin for the time being. He will be continued on IV steroids and zinc. He is on contact and droplet precautions. Infectious disease and pulmonology is following. His BUN has improved from yesterday which is likely prerenal in nature and he will be continued on normal saline at 50 mL per hour. His hemoglobin of 11.9 is likely dilutional and will be monitored with daily CBC. Plan is repeat chest x-ray tomorrow. Repeat CRP, CMP, CPK, d-dimer, ferritin and LDH tomorrow. He is pending clinical improveme nt. Prognosis is extremely guarded at this time.
[2020-02-02 12:34] LABS: Ferritin 645.2 ng/mL (22.0-322.0)
[2020-02-02] MEDS: CISATRACURIUM 200 MG in SODIUM CHLORIDE 0.9% 180 ML IV SCH (17:21)
[2020-02-02] MEDS ORDERED: TOCILIZUMAB 400 MG in SODIUM CHLORIDE 0.9% 80 ML IV ONE (17:54)
--- NOTE | 2020-02-02 17:58 | PN ---
PROGRESS NOTE PULMONARY/CRITICAL CARE PROGRESS NOTE: DATE OF SERVICE: 02/02/2020 CRITICAL CARE TIME: 34 minutes. This is a 64-year-old male who was admitted back on January 21. The patient has a history of acute COVID-19 pneumonitis, acute hypoxemic respiratory failure requiring intubation and mechanical ventilation, acute hypercapnic respiratory failure, diarrhea, possibly a manifestation of COVID-19 infection, and lymphopenia. Currently the patient is on the volume assist control mode, rate of 30, tidal volume 450, FiO2 55%, PEEP of 10. Blood gases show a pO2 of 60, pCO2 of 65, and a pH of 7.35. He is getting saline at KVO, Nimbex at 3 mcg/kg per minute, fentanyl at 1.5 mcg/kg per hour, propofol at 75 mcg/kg per minute, and tube feeds at goal, which is 49 mL/hour. It is Vital HP. We are going to make some changes to the ventilator. The FiO2 was dropped from 55% to 50% and the PEEP was increased from 10 to 13. He is currently on Solu-Medrol and Rocephin. The patient was admitted January 21 but intubated on January 28. He presented to the ICU on January 25. PHYSICAL EXAMINATION: VITAL SIGNS: Current vital signs are reviewed. His temperature is 102.1, heart rate 120, respiratory rate 30, blood pressure 152/76, mean 101. Saturations are 94%. GENERAL APPEARANCE: He appears in no acute distress. Currently sedated and paralyzed. HEENT EXAMINATION: Grossly unremarkable. There is an orally placed endotracheal tube and NG tube. NECK: Supple. Full range of motion. CARDIOVASCULAR EXAMINATION: Cardiovascular examination reveals a regular rhythm and rate. Heart rate 120 beats per minute. It is regular. S1, S2 normal. Heart sounds are distant. LUNGS: Diffuse bilateral rhonchi. No wheezes or crackles. Breath sounds are equal. ABDOMEN: Soft. Bowel sounds are noted. EXTREMITIES: Intact. No edema. SKIN: Without rash. NEUROLOGIC: Neurological examination is difficult to assess, given his current sedation and paralysis. LABS/IMAGING: Labs are reviewed. Today's labs include a white count 6.7, hemoglobin 12.5, hematocrit 38.6, platelet count 340,000. D-dimer 1.39. Blood gases have been noted. Sodium 146, potassium 4.6. Chloride is 109, CO2 39. BUN is 30, creatinine 0.62. Ferritin 645. Bilirubin 0.5. AST 45, ALT 78. LDH 690. CK 30. C-reactive protein 60.8. Albumin 2.4. Chest x-ray from this morning shows diffuse bilateral and bibasilar infiltrates with small effusions. Microbiologic studies are currently negative or pending. MEDICATIONS: Orders are reviewed. He is currently on Tylenol, albuterol inhaler, Artificial Tears, chlorhexidine, Rocephin, Nimbex, Lovenox, fentanyl, insulin, Solu-Medrol, metoprolol, Lopressor, Narcan, norepinephrine, Protonix, potassium chloride, potassium replacement, propofol and zinc. ASSESSMENT: 1. Acute COVID-19 pneumonitis with hypoxemic and hypercapnic respiratory failure requiring intubation and mechanical ventilation on January 28. 2. Diarrhea, possibly a manifestation of COVID-19 infection. 3. Lymphopenia. 4. Rule out sepsis-induced coagulopathy secondary to COVID-19 infection. 5. History of rheumatoid arthritis. 6. Elevated proinflammatory markers, including ferritin, LDH, C-reactive protein as well as D-dimer. PLAN: This patient's Lovenox will be increased to therapeutic doses. Will increase the PEEP to 13 and drop the FiO2 down to 50%. He is receiving tube feeds at goal. He is currently on propofol, fentanyl and Nimbex. Additional recommendations and suggestions are forthcoming. Prognosis is guarded. MMDESMONDL / ALANAN: [id number] /
[2020-02-02 18:05] LABS: Glucose,Whole Blood 119 mg/dL (75-99)
[2020-02-02] MEDS: ENOXAPARIN 100 MG/ML SYRINGE SQ SCH (19:40)
--- NOTE | 2020-02-02 22:04 | PN ---
PROGRESS NOTE DATE OF SERVICE: 02/02/2020. REASON FOR FOLLOW UP: A Covid-19 pneumonia. INTERVAL HISTORY: The patient started having a fever with a T-max of 102.9 this morning and has been afebrile mostly. The patient is hemodynamically stable, on pressor support. FiO2 is currently 55% and no significant purulent secretions through the ET or any diarrhea has been reported. PHYSICAL EXAMINATION: Blood pressure is 152/76, pulse of 122, temperature 101.2. He is 90% on 55% FiO2. General description is a middle-aged male lying in bed in no distress. Respiratory system: Unlabored breathing, decreased breath sounds in the base, with no wheeze. Heart S1, S2. Regular rate and rhythm. Abdomen soft, no tenderness. LABS: Hemoglobin is 12.5, white count 6.7. BUN of 30, creatinine 0.62. DIAGNOSTIC IMPRESSION AND PLAN: Patient with acute COVID-19 pneumonia with acute respiratory failure in a patient now with persistent fever almost 6 hours, likely indicating cytokine farida and the patient would benefit from Actemra that will be ordered. Continue with Solu-Medrol and zinc and monitor clinical course closely. Blood culture will be repeated as well to look for any nosocomial source for this fever along with sputum culture. Overall prognosis remains to be guarded. MMODL / IJN: [id number] / LUIS ALFREDO
[2020-02-03] MEDS: NOREPINEPHRINE 8 MG in SODIUM CHLORIDE 0.9% 250 ML IV SCH ×2 (00:18→22:09)
[2020-02-03] MEDS: PROPOFOL 1,000 MG in EMPTY BAG 1 BAG IV SCH ×10 (00:20→21:11)
--- NOTE | 2020-02-03 00:43 | XR ---
EXAMINATION TYPE: XR chest 1V portable DATE OF EXAM: 02/03/2020 COMPARISON: 02/02/2020 HISTORY: Check tube placement TECHNIQUE: Single view FINDINGS: Endotracheal tube is 5.5 cm from the lore. There is nasogastric tube there is probably in the stomach. There is diffuse pulmonary edema. Heart size is fairly normal. There are chest leads. T here is left jugular catheter with the tip in the superior vena cava. There is soft tissue air in the subcutaneous tissues at the base of the neck bilaterally. IMPRESSION: Pulmonary interstitial and alveolar edema unchanged compared to exam yesterday. There is coalescent infiltrate and atelectasis at the lung bases. There is new soft tissue air at the base of the neck. No pneumothorax.
[2020-02-03 01:28] LABS: Appearance,Urine Cloudy (Clear); Bilirubin,Urine Negative (Negative); Blood,Urine Negative (Negative); Budding Yeast,Urine Occasional /hpf; Color,Urine Yellow; Glucose,Urine (UA) Negative (Negative); Ketones,Urine Negative (Negative); Leukocyte Esterase,Urine Negative (Negative); Mucus,Urine Rare /hpf; Nitrite,Urine Negative (Negative); PH, Urine 5.5 (5.0-8.0); Protein,Urine Trace (Negative); RBC,Urine 13 /hpf (0-5); Specific Gravity,Urine 1.022 (1.001-1.035); Urobilinogen,Urine <2.0 mg/dL (<2.0); WBC,Urine 2 /hpf (0-5)
[2020-02-03] MEDS: CISATRACURIUM 200 MG in SODIUM CHLORIDE 0.9% 180 ML IV SCH (01:43)
[2020-02-03 01:44] LABS: Glucose,Whole Blood 147 mg/dL (75-99)
[2020-02-03] MEDS: ARTIFICIAL TEARS-HYPROMELLOSE DROPS 15 ML BTL BOTH EYES SCH ×7 (02:15→23:10)
[2020-02-03] MEDS: INSULIN ASPART (NovoLOG) 100 UNIT/ML VIAL SQ SCH ×5 (02:55→23:08)
[2020-02-03] MEDS: fentaNYL (PF) 1,000 MCG in SODIUM CHLORIDE 0.9% 80 ML IV SCH ×3 (03:30→22:22)
[2020-02-03] MEDS: ACETAMINOPHEN TAB 325 MG TAB PO PRN (04:09)
[2020-02-03] MEDS: SODIUM CHLORIDE 0.9% 1,000 ML IV SCH ×2 (04:18→23:10)
[2020-02-03 04:38] LABS: Basophils % (A) 0 %; Eosinophils % (A) 0 %; HCT 36.2 % (39.0-53.0); HGB 10.8 gm/dL (13.0-17.5); Hypochromasia Marked; Lymphocytes # (A) 0.8 k/uL (1.0-4.8); Lymphocytes % (A) 13 %; MCH 28.9 pg (25.0-35.0); MCV 96.5 fL (80.0-100.0); Mean Platelet Volume 8.4; Monocytes # (A) 0.3 k/uL (0-1.0); Monocytes % (A) 4 %; Neutrophils # (A) 5.2 k/uL (1.3-7.7); Neutrophils % (A) 82 %; Platelet Count 159 k/uL (150-450); RBC 3.75 m/uL (4.30-5.90); WBC 6.4 k/uL (3.8-10.6)
[2020-02-03 05:00] LABS: ALT 80 U/L (4-49); AST 46 U/L (17-59); African American GFR (CKD) >90 (>60 ml/min/1.73 sqM); Albumin 2.2 g/dL (3.5-5.0); Alkaline Phosphatase 100 U/L (38-126); Anion Gap -1 mmol/L; Blood Urea Nitrogen 41 mg/dL (9-20); Calcium 8.2 mg/dL (8.4-10.2); Carbon Dioxide 39 mmol/L (22-30); Chloride 110 mmol/L (98-107); Creatine Kinase 512 U/L (55-170); Glucose 121 mg/dL (74-99); LDH 658 U/L (313-618); Non-African American GFR(CKD) 83 (>60 ml/min/1.73 sqM); Potassium 5.3 mmol/L (3.5-5.1); Sodium 148 mmol/L (137-145); Total Bilirubin 0.5 mg/dL (0.2-1.3); Total Protein 4.6 g/dL (6.3-8.2)
[2020-02-03 05:02] LABS: ABG Base Excess 11.4 mmol/L; ABG HCO3 37 mmol/L (21-25); ABG Oxygen Saturation 94.4 % (94-97); ABG PCO2 70 mmHg (35-45); ABG PH 7.33 (7.35-7.45); ABG PO2 73 mmHg (83-108); ABG TCO2 40 mmol/L (19-24); Allen Test Performed? Yes
[2020-02-03 05:13] LABS: C Reactive Protein 261.9 mg/L (<10.0)
[2020-02-03 06:36] LABS: Glucose,Whole Blood 100 mg/dL (75-99)
--- NOTE | 2020-02-03 07:21 | XR ---
EXAMINATION TYPE: XR chest 1V portable DATE OF EXAM: 02/03/2020 COMPARISON: 02/03/2020 HISTORY: Shortness of breath TECHNIQUE: Single frontal view of the chest is obtained. FINDINGS: ET, NG tube and central line stable. Cardiomegaly, bilateral infiltrate and pleural effusi on noted. Coarsened interstitium stable. Suspect bilateral upper chest soft tissue emphysema. Could n ot rule out a degree of pneumomediastinum. No sizable pneumothorax. IMPRESSION: 1. Diffuse pleural-parenchymal changes are stable correlate for pneumonia versus CHF. ARDS in the dif ferential diagnosis. 2. Suspect subcutaneous emphysema along the soft tissues of the upper chest and neck. Could not exclu de a degree of pneumomediastinum.
[2020-02-03] MEDS: ALBUTEROL HFA INHALER INHALATION SCH ×4 (07:33→21:08)
[2020-02-03] MEDS: POTASSIUM CHLORIDE ER 10 MEQ TAB.ER.PRT PO SCH (08:08)
[2020-02-03] MEDS: PANTOPRAZOLE 40 MG TABLET PO SCH (08:12)
[2020-02-03] MEDS: CHLORHEXIDINE GLUCONATE 15 ML CUP MUCOUS MEM SCH ×2 (08:13→20:19)
[2020-02-03] MEDS: ENOXAPARIN 100 MG/ML SYRINGE SQ SCH ×2 (08:13→22:09)
[2020-02-03] MEDS: methylPREDNISolone SOD SUCCI 40 MG/ML 1 ML VIAL IV SCH ×2 (08:14→20:19)
[2020-02-03] MEDS: ZINC SULFATE 220 MG CAP PO SCH (08:14)
[2020-02-03] MEDS ORDERED: ACETAMINOPHEN IV (For NPO) 1,000 MG in EMPTY BAG 1 BAG IVPB PRN (08:45)
[2020-02-03] MEDS: ASCORBIC ACID 500 MG TAB OG-TUBE SCH ×2 (09:35→20:19)
[2020-02-03 11:49] LABS: Ferritin 882.9 ng/mL (22.0-322.0)
--- NOTE | 2020-02-03 12:16 | P.PN ---
Subjective Progress Note Date: 02/03/20 Principal diagnosis: Acute CoVID 19 pneumonitis with acute hypoxemic respiratory failure The patient is seen today 02/03/2020 in follow-up in the intensive care unit. He remains intubated and on the mechanical ventilator. Current settings are assist-control with a rate of 30, tidal volume 450, FiO2 55% and a PEEP of 15. Peak pressure of 33. Plateau of 28. Static compliance of 40. Morning blood gases reveal a P O2 of 73, pCO2 of 70, pH 7.33. Chest x-ray continues to show diffuse pleuroparenchymal changes suspect secondary to CoVID 19 pneumonia and possible CHF versus ARDS. Some subcutaneous emphysema along the soft tissues of the upper chest and neck are noted as well. Possible pneumomediastinum. He is sedated on propofol at 75 mcg/kg/m. Nimbex at 2 mcg/kg/m. Fentanyl 1.5 mcg/kg/h. 0.9 normal saline at 50 MLS per hour. He is being nourished with Vital HP at 49 MLS per hour. Sputum culture is pending. He has been slow to progress. White count 6.4. Hemoglobin 10.8. Sodium 148. Potassium 5.3. Creatinine 0.98. Ferritin 882. AST 46. ALT 80. LDH 658. Creatinine kinase 512. C-reactive protein 262. D-dimer 1.26. He is continued on Lovenox 100 mg every 12 hours, IV Solu-Medrol 40 mg every 12 hours, zinc, antibiotics in the form of ceftriaxone. Objective - Vital Signs Vital signs: Vital Signs Temp 100.3 F H 02/03/20 08:00 Pulse 93 02/03/20 09:00 Resp 30 H 02/03/20 09:00 BP 91/58 02/03/20 07:00 Pulse Ox 89 L 02/03/20 09:00 Intake & Output 02/02/20 02/03/20 02/03/20 18:59 06:59 18:59 Intake Total 2323.751 1931.983 675.433 Output Total 742 810 430 Balance 2937.825 2764.983 245.433 Weight 99.2 kg 99.2 kg Intake: IV 672 672 165 Normal Saline Pressure 72 72 15 Bag Sodium Chloride 0.9% 1, 600 600 150 000 ml @ 50 mls/hr IV . Q20H [facility] Rx#:[id number] Intake, IV Titration 626.751 728.983 235.433 Amount Cisatracurium 200 mg In 200 70.029 35.433 Sodium Chloride 0.9% 180 ml @ 1 MCG/KG/MIN 5.58 mls/hr IV .Q24H [facility] Rx#: [id number] Propofol 1,000 mg In 326.751 470.628 200 Empty Bag 1 bag @ Titrate IV .Q0M [facility] Rx#: [id number] fentaNYL (PF) 1,000 mcg 100 188.326 In Sodium Chloride 0.9% 80 ml @ 0.5 MCG/KG/HR 4. 65 mls/hr IV .[id number] [facility] Rx#:[id number] Oral 200 Tube Feeding 735 441 245 Other 90 90 30 Output: Urine 742 810 430 Other: Voiding Method Indwelling Catheter Indwelling Catheter Indwelling Catheter ABP, PAP, CO, CI - Last Documented Arterial Blood Pressure 97/50 - Exam GENERAL EXAM: Intubated, sedated, paralyzed 64-year-old gentleman on 55% FiO2 to maintain O2 saturations in the 90s. HEAD: Normocephalic. EYES: Sluggish reaction of pupils, equal size. NOSE: Clear with pink turbinates. THROAT: Oral endotracheal and gastric tube secured in place. No erythema or exudates. NECK: No masses, no JVD. CHEST: No chest wall deformity. LUNGS: Equal air entry with few scattered rhonchi, crackles in the posterior bases. CVS: S1 and S2 normal with no audible murmur, regular rhythm. ABDOMEN: No hepatosplenomegaly, normal bowel sounds, no guarding or rigidity. SPINE: No scoliosis or deformity SKIN: No rashes CENTRAL NERVOUS SYSTEM: Sedated and paralyzed tone is normal in all 4 extremities. EXTREMITIES: There is no peripheral edema. No clubbing, no cyanosis. Peripheral pulses are intact. - Labs CBC & Chem 7: 02/03/20 04:30 02/03/20 04:30 Labs: Abnormal Lab Results - Last 24 Hours (Table) 02/02/20 02/02/20 02/02/20 Range/Units 04:00 12:04 18:03 RBC (4.30-5.90) m/uL Hgb (13.0-17.5) gm/dL Hct (39.0-53.0) % MCHC (31.0-37.0) g/dL Lymphocytes # (1.0-4.8) k/uL D-Dimer (<0.60) mg/L FEU ABG pH (7.35-7.45) ABG pCO2 (35-45) mmHg ABG pO2 (83-108) mmHg ABG HCO3 (21-25) mmol/L ABG Total CO2 (19-24) mmol/L Sodium (137-145) mmol/L Potassium (3.5-5.1) mmol/L Chloride (98-107) mmol/L Carbon Dioxide (22-30) mmol/L BUN (9-20) mg/dL Glucose (74-99) mg/dL POC Glucose (mg/dL) 125 H 119 H (75-99) mg/dL Calcium (8.4-10.2) mg/dL Ferritin 645.2 H (22.0-322.0) ng/mL ALT (4-49) U/L Lactate Dehydrogenase (313-618) U/L Creatine Kinase (55-170) U/L C-Reactive Protein (<10.0) mg/L Total Protein (6.3-8.2) g/dL Albumin (3.5-5.0) g/dL Urine Protein (Negative) Urine RBC (0-5) /hpf Urine Mucus (None) /hpf Urine Yeast (Budding) (None) /hpf 02/03/20 02/03/20 02/03/20 Range/Units 00:37 01:40 04:30 RBC 3.75 L (4.30-5.90) m/uL Hgb 10.8 L (13.0-17.5) gm/dL Hct 36.2 L (39.0-53.0) % MCHC 30.0 L (31.0-37.0) g/dL Lymphocytes # 0.8 L (1.0-4.8) k/uL D-Dimer (<0.60) mg/L FEU ABG pH (7.35-7.45) ABG pCO2 (35-45) mmHg ABG pO2 (83-108) mmHg ABG HCO3 (21-25) mmol/L ABG Total CO2 (19-24) mmol/L Sodium (137-145) mmol/L Potassium (3.5-5.1) mmol/L Chloride (98-107) mmol/L Carbon Dioxide (22-30) mmol/L BUN (9-20) mg/dL Glucose (74-99) mg/dL POC Glucose (mg/dL) 147 H (75-99) mg/dL Calcium (8.4-10.2) mg/dL Ferritin (22.0-322.0) ng/mL ALT (4-49) U/L Lactate Dehydrogenase (313-618) U/L Creatine Kinase (55-170) U/L C-Reactive Protein (<10.0) mg/L Total Protein (6.3-8.2) g/dL Albumin (3.5-5.0) g/dL Urine Protein Trace H (Negative) Urine RBC 13 H (0-5) /hpf Urine Mucus Rare H (None) /hpf Urine Yeast (Budding) Occasional H (None) /hpf 02/03/20 02/03/20 02/03/20 Range/Units 04:30 04:30 05:00 RBC (4.30-5.90) m/uL Hgb (13.0-17.5) gm/dL Hct (39.0-53.0) % MCHC (31.0-37.0) g/dL Lymphocytes # (1.0-4.8) k/uL D-Dimer 1.26 H (<0.60) mg/L FEU ABG pH 7.33 L (7.35-7.45) ABG pCO2 70 H (35-45) mmHg ABG pO2 73 L (83-108) mmHg ABG HCO3 37 H (21-25) mmol/L ABG Total CO2 40 H (19-24) mmol/L Sodium 148 H (137-145) mmol/L Potassium 5.3 H (3.5-5.1) mmol/L Chloride 110 H (98-107) mmol/L Carbon Dioxide 39 H (22-30) mmol/L BUN 41 H (9-20) mg/dL Glucose 121 H (74-99) mg/dL POC Glucose (mg/dL) (75-99) mg/dL Calcium 8.2 L (8.4-10.2) mg/dL Ferritin 882.9 H (22.0-322.0) ng/mL ALT 80 H (4-49) U/L Lactate Dehydrogenase 658 H (313-618) U/L Creatine Kinase 512 H (55-170) U/L C-Reactive Protein 261.9 H (<10.0) mg/L Total Protein 4.6 L (6.3-8.2) g/dL Albumin 2.2 L (3.5-5.0) g/dL Urine Protein (Negative) Urine RBC (0-5) /hpf Urine Mucus (None) /hpf Urine Yeast (Budding) (None) /hpf 02/03/20 Range/Units 06:34 RBC (4.30-5.90) m/uL Hgb (13.0-17.5) gm/dL Hct (39.0-53.0) % MCHC (31.0-37.0) g/dL Lymphocytes # (1.0-4.8) k/uL D-Dimer (<0.60) mg/L FEU ABG pH (7.35-7.45) ABG pCO2 (35-45) mmHg ABG pO2 (83-108) mmHg ABG HCO3 (21-25) mmol/L ABG Total CO2 (19-24) mmol/L Sodium (137-145) mmol/L Potassium (3.5-5.1) mmol/L Chloride (98-107) mmol/L Carbon Dioxide (22-30) mmol/L BUN (9-20) mg/dL Glucose (74-99) mg/dL POC Glucose (mg/dL) 100 H (75-99) mg/dL Calcium (8.4-10.2) mg/dL Ferritin (22.0-322.0) ng/mL ALT (4-49) U/L Lactate Dehydrogenase (313-618) U/L Creatine Kinase (55-170) U/L C-Reactive Protein (<10.0) mg/L Total Protein (6.3-8.2) g/dL Albumin (3.5-5.0) g/dL Urine Protein (Negative) Urine RBC (0-5) /hpf Urine Mucus (None) /hpf Urine Yeast (Budding) (None) /hpf Microbiology - Last 24 Hours (Table) 02/03/20 01:05 Sputum Culture - Preliminary Sputum Assessment and Plan Assessment: 1 Acute CoVID 19 pneumonitis with acute hypoxemic respiratory failure requiring intubation mechanical ventilatory support 2 Acute hypercapnic respiratory failure secondary to above. 3 Elevated d-dimer secondary to above. 4 Elevated LDH, ferritin, C-reactive protein secondary to above. 5 History of rheumatoid arthritis treated with methotrexate in the outpatient setting Plan: The patient was seen and evaluated by Dr. Monsivais Chest x-ray, ABGs and labs reviewed We'll send interleukin-6 Attempt to get the patient Actemra Prognosis remains quite guarded. We will continue to follow and make further recommendations based on his clinical status. Critical care time 45 minutes I, the cosigning physician, performed a history & physical examination of the patient. Lungs sounds with bilateral scattered rhonchi, crackles in the posterior bases. Maintaining good O2 saturations in the 90s on 55% FiO2 on the mechanical ventilator. I discussed the assessment and plan of care with my nurse practitioner, Asiya De La Rosa. I attest to the above note as dictated by her.
[2020-02-03 12:17] LABS: Glucose,Whole Blood 138 mg/dL (75-99)
--- NOTE | 2020-02-03 14:34 | P.PN ---
Subjective Progress Note Date: 02/03/20 Principal diagnosis: COVID 19 64-year-old male was admitted for acute hypoxic respiratory failure secondary to COVID 19 diagnosis. He was started on hydroxychloroquine, Rocephin and doxycycline along with albuterol inhaler and placed on droplet precautions. He was started on low-dose IV steroids and given supplemental O2 maintain maintain O2 saturation greater than 92%. He was initially on 6 L nasal cannula which progressively increased to 15 L high flow. Awake proning was attempted without much relief. Patient continued to deteriorate and pulmonology was consulted. Pulmonology recommended transfer to ICU for closer monitoring on 01/29/2020. He was intubated on 01/30/2020 overnight. He continues to be intubated into 02/02/2020 Patient examined at bedside nursing reporting increasing episodes of agitation currently on maximal doses of Nimbex & propofol, patient's heart rate has improved, patient continues to be febrile T-max 100.3 this a.m. Vent settings adjusted currently on 55% FiO2 with a PEEP of +15 .chest x-ray indicating diffuse pleural parenchymal changes pneumonia versus CHF versus ARDS with subcutaneous emphysema of the soft tissues of the upper chest and neck. Objective - Vital Signs Vital signs: Vital Signs Temp 100.3 F H 02/03/20 12:00 Pulse 81 02/03/20 14:00 Resp 30 H 02/03/20 14:00 BP 91/58 02/03/20 07:00 Pulse Ox 93 L 02/03/20 14:00 Intake & Output 02/02/20 02/03/20 02/03/20 18:59 06:59 18:59 Intake Total 2323.751 1382.585 5076.433 Output Total 742 810 740 Balance 9908.737 2870.983 519.433 Weight 99.2 kg 99.2 kg Intake: IV 672 672 374 Normal Saline Pressure 72 72 24 Bag Sodium Chloride 0.9% 1, 600 600 300 000 ml @ 50 mls/hr IV . Q20H [facility] Rx#:[id number] cefTRIAXone 1 gm In 50 Sodium Chloride 0.9% 50 ml @ 100 mls/hr IVPB Q24HR [facility] Rx#:[id number] Intake, IV Titration 626.751 728.983 335.433 Amount Cisatracurium 200 mg In 200 70.029 35.433 Sodium Chloride 0.9% 180 ml @ 1 MCG/KG/MIN 5.58 mls/hr IV .Q24H [facility] Rx#: [id number] Propofol 1,000 mg In 326.751 470.628 300 Empty Bag 1 bag @ Titrate IV .Q0M [facility] Rx#: [id number] fentaNYL (PF) 1,000 mcg 100 188.326 In Sodium Chloride 0.9% 80 ml @ 0.5 MCG/KG/HR 4. 65 mls/hr IV .[id number] [facility] Rx#:[id number] Oral 200 Tube Feeding 735 441 490 Other 90 90 60 Output: Urine 742 810 740 Other: Voiding Method Indwelling Catheter Indwelling Catheter Indwelling Catheter ABP, PAP, CO, CI - Last Documented Arterial Blood Pressure 100/53 - Exam Constitutional: No acute distress, intubated sedated Eyes: Anicteric sclerae, moist conjunctiva, no lid-lag, PERRLA ENMT: NC/AT,Oropharynx clear, no erythema, exudates, palpable crepitus in the neck appears to be worsening continue to outlined with a marker Neck:Supple, FROM, no masses, or JVD, No carotid bruits; No thyromegaly Lungs: Clear to auscultation, Clear to percussion, Normal respiratory effort, no accessory muscle use Cardiovascular: Regular rate and rhythm, No murmurs, gallops, or rubs no peripheral edema Abdominal: Soft Nontender, nom distended, no guarding, no rebound or rigidity, Normoactive bowel sounds No hepatomegaly, No splenomegaly, No palpable mass No abdominal wall hernia noted Skin: Normal temperature, tone, texture, turgor, No induration No subcutaneous nodules, No rash, lesions, No ulcers Extremities:No digital cyanosis No clubbing, Pedal pulses intact and s ymmetrical Radial pulses intact and symmetrical Normal gait and station, No calf tenderness Neuro: Episodes of agitation continues to be sedated and intubated - Labs CBC & Chem 7: 02/04/20 04:00 02/04/20 04:00 Labs: Abnormal Lab Results - Last 24 Hours (Table) 02/02/20 02/03/20 02/03/20 Range/Units 18:03 00:37 01:40 RBC (4.30-5.90) m/uL Hgb (13.0-17.5) gm/dL Hct (39.0-53.0) % MCHC (31.0-37.0) g/dL Lymphocytes # (1.0-4.8) k/uL D-Dimer (<0.60) mg/L FEU ABG pH (7.35-7.45) ABG pCO2 (35-45) mmHg ABG pO2 (83-108) mmHg ABG HCO3 (21-25) mmol/L ABG Total CO2 (19-24) mmol/L Sodium (137-145) mmol/L Potassium (3.5-5.1) mmol/L Chloride (98-107) mmol/L Carbon Dioxide (22-30) mmol/L BUN (9-20) mg/dL Glucose (74-99) mg/dL POC Glucose (mg/dL) 119 H 147 H (75-99) mg/dL Calcium (8.4-10.2) mg/dL Ferritin (22.0-322.0) ng/mL ALT (4-49) U/L Lactate Dehydrogenase (313-618) U/L Creatine Kinase (55-170) U/L C-Reactive Protein (<10.0) mg/L Total Protein (6.3-8.2) g/dL Albumin (3.5-5.0) g/dL Urine Protein Trace H (Negative) Urine RBC 13 H (0-5) /hpf Urine Mucus Rare H (None) /hpf Urine Yeast (Budding) Occasional H (None) /hpf 02/03/20 02/03/20 02/03/20 Range/Units 04:30 04:30 04:30 RBC 3.75 L (4.30-5.90) m/uL Hgb 10.8 L (13.0-17.5) gm/dL Hct 36.2 L (39.0-53.0) % MCHC 30.0 L (31.0-37.0) g/dL Lymphocytes # 0.8 L (1.0-4.8) k/uL D-Dimer 1.26 H (<0.60) mg/L FEU ABG pH (7.35-7.45) ABG pCO2 (35-45) mmHg ABG pO2 (83-108) mmHg ABG HCO3 (21-25) mmol/L ABG Total CO2 (19-24) mmol/L Sodium 148 H (137-145) mmol/L Potassium 5.3 H (3.5-5.1) mmol/L Chloride 110 H (98-107) mmol/L Carbon Dioxide 39 H (22-30) mmol/L BUN 41 H (9-20) mg/dL Glucose 121 H (74-99) mg/dL POC Glucose (mg/dL) (75-99) mg/dL Calcium 8.2 L (8.4-10.2) mg/dL Ferritin 882.9 H (22.0-322.0) ng/mL ALT 80 H (4-49) U/L Lactate Dehydrogenase 658 H (313-618) U/L Creatine Kinase 512 H (55-170) U/L C-Reactive Protein 261.9 H (<10.0) mg/L Total Protein 4.6 L (6.3-8.2) g/dL Albumin 2.2 L (3.5-5.0) g/dL Urine Protein (Negative) Urine RBC (0-5) /hpf Urine Mucus (None) /hpf Urine Yeast (Budding) (None) /hpf 02/03/20 02/03/20 02/03/20 Range/Units 05:00 06:34 12:14 RBC (4.30-5.90) m/uL Hgb (13.0-17.5) gm/dL Hct (39.0-53.0) % MCHC (31.0-37.0) g/dL Lymphocytes # (1.0-4.8) k/uL D-Dimer (<0.60) mg/L FEU ABG pH 7.33 L (7.35-7.45) ABG pCO2 70 H (35-45) mmHg ABG pO2 73 L (83-108) mmHg ABG HCO3 37 H (21-25) mmol/L ABG Total CO2 40 H (19-24) mmol/L Sodium (137-145) mmol/L Potassium (3.5-5.1) mmol/L Chloride (98-107) mmol/L Carbon Dioxide (22-30) mmol/L BUN (9-20) mg/dL Glucose (74-99) mg/dL POC Glucose (mg/dL) 100 H 138 H (75-99) mg/dL Calcium (8.4-10.2) mg/dL Ferritin (22.0-322.0) ng/mL ALT (4-49) U/L Lactate Dehydrogenase (313-618) U/L Creatine Kinase (55-170) U/L C-Reactive Protein (<10.0) mg/L Total Protein (6.3-8.2) g/dL Albumin (3.5-5.0) g/dL Urine Protein (Negative) Urine RBC (0-5) /hpf Urine Mucus (None) /hpf Urine Yeast (Budding) (None) /hpf Microbiology - Last 24 Hours (Table) 02/03/20 01:05 Sputum Culture - Preliminary Sputum Assessment and Plan Assessment: Acute hypoxic respiratory failure * Multifactorial due to COVID 19 pneumonia with superimposed ARDS * Patient continues to require ventilatory support pulmonary following * AC with a rate of 30, tidal volume 450, FiO2 55% and a PEEP of 15. Peak pressure of 33. Plateau of 28. ARDS * Continue ARDS net protocol per pulmonary * Continue systemic steroids with Solu-Medrol NCoV pneumonia * Continue to follow daily chest x-rays * Continue zinc * Tocilizumab 400 mg IV ordered yesterday but was not given was canceled by pharmacy, discussed with pulmonary and patient is a good candidate for medication due to his elevated acute phase reactants and worsening clinical status Sepsis * Secondary to Covid pneumonia in a Immunocompromised patient previously on methotrexate for history of rheumatoid arthritis * Appreciate ID recommendations patient still febrile without leukocytosis * Continue Rocephin 1 g IV every 24 hours Pneumomediastinum * Possibly secondary to increased PeeP of 15 inpatient on the vent with ARDS * Continue to monitor with daily chest x-rays Left upper extremity swelling * We'll check a left upper extremity venous Doppler to rule out thromboembolic disease * Currently on therapeutic Lovenox Hypernatremia Anemia * Hemoglobin 10.8 likely dilutional * Continue to monitor with daily labs Disposition * patient is critical discussed with pulmonary patient would need IL-6 modulation withTocilizumab * Continue current treatment * patient critical with poor prognosis
[2020-02-03] MEDS: TOCILIZUMAB 400 MG in SODIUM CHLORIDE 0.9% 80 ML IV SCH ×2 (15:24→22:36)
--- NOTE | 2020-02-03 15:43 | US ---
EXAMINATION TYPE: US venous doppler duplex UE LT DATE OF EXAM: 02/03/2020 COMPARISON: NONE CLINICAL HISTORY: 64-year-old male Rule out DVT. LEFT arm edema, central line left neck SIDE PERFORMED: left TECHNIQUE: Grayscale, color doppler, spectral doppler imaging performed of the deep veins of the uppe r extremities. There is normal flow, compressibility and vascular waveforms. FINDINGS: Left Arm: Technical limitations due to central line and bandage, unable to visualize IJV. No evidence of DVT as visualized IMPRESSION: 1. Assessment of the internal jugular vein is nondiagnostic due to central line and overlying bandagi ng. 2. Otherwise, the left subclavian vein and remainder of the left upper extremity shows no evidence fo r DVT.
[2020-02-03 17:37] LABS: Glucose,Whole Blood 135 mg/dL (75-99)
[2020-02-03] MEDS ORDERED: CISATRACURIUM 200 MG in SODIUM CHLORIDE 0.9% 100 ML IV SCH (18:30)
[2020-02-03] MEDS: CISATRACURIUM 200 MG in SODIUM CHLORIDE 0.9% 100 ML IV SCH (18:35)
--- NOTE | 2020-02-03 19:47 | PN ---
PROGRESS NOTE DATE OF SERVICE: 02/03/2020 REASON FOR FOLLOWUP: Acute COVID-19 pneumonia. INTERVAL HISTORY: The patient has been running a fever, though overall fever pattern has improved, with T- max of 102.2. Temperature of 100.7 at the time of evaluation. The patient has developed significant subcutaneous emphysema to the upper chest area. Patient is currently off pressor support. No significant purulent secretions in the ET and no diarrhea has been reported. PHYSICAL EXAMINATION: Blood pressure 105/51 with pulse of 73, temperature of 100.7. He is 94% on 55% FiO2. General description is a middle-aged male lying in bed in no distress. ENT EXAMINATION: significant swelling of the neck and upper chest area. LUNGS: Unlabored breathing. Decreased breath sounds in the base. No wheeze. HEART: S1, S2. Regular rate and rhythm. ABDOMEN: Soft. No tenderness. LABS: Hemoglobin is 10.8, white count 6.4, BUN of 41, creatinine 0.98. DIAGNOSTIC IMPRESSION AND PLAN: Patient with acute respiratory failure which is likely multifactorial in this patient who did have a component of COVID-19 pneumonia with acute respiratory failure, now with evidence of significant subcutaneous emphysema. Left IJ will be discontinued. The patient will be monitored closely by the wanigan clerk. The patient is receiving Actemra and Solu-Medrol and Rocephin; to continue along with zinc and monitor his clinical course closely. Overall prognosis remains guarded. Culture was repeated yesterday. Antibiotic will be adjusted further on the basis of that report. MMODL / IJN: [id number] / MTDD
--- NOTE | 2020-02-03 20:38 | OP ---
OPERATIVE REPORT PROCEDURE PERFORMED: Right femoral vein triple-lumen catheter. PREOPERATIVE DIAGNOSIS: Administration of fluids and pressors. POSTOPERATIVE DIAGNOSIS: Administration of fluids and pressors. There was informed consent and universal time-out. OPERATORS: 1. Pierre Monsivais M.D. 2. Rowdy Rowe. 3. Jaspal Dempsey. I have discussed the risks, benefits and alternative therapies for the above-mentioned procedure and for both sedation/analgesia as well as necessary blood product administration, if indicated, as they pertain to this patient. The patient has indicated his or her understanding and acceptance of the risks and procedures discussed. TRIPLE-LUMEN CATHETER PLACEMENT: Indication: Hemodynamic monitoring/Intravenous access. A time-out was completed verifying correct patient, procedure, site, positioning, and implants or special equipment if applicable. The patient was placed in a dependent position appropriate for triple-lumen catheter placement based on the vein to be cannulated. The patient's right groin was prepped and draped in sterile fashion. 1% Lidocaine was used to anesthetize the surrounding skin area. A triple-lumen 9F Cordis catheter was introduced into the common femoral vein using Seldinger technique. The catheter was threaded smoothly over the guidewire and appropriate blood return was obtained. Each lumen of the catheter was evacuated of air and flushed with sterile saline. The catheter was then sutured in place to the skin and a sterile dressing applied. Perfusion to the extremity distal to the point of catheter insertion was checked and found to be adequate. There was good blood return from all three ports. The catheter was sutured in place and sterile dressing was applied by the nurse. There were no immediate complications. The patient tolerated the procedure very well. MMODL / IJN: [id number] /
--- NOTE | 2020-02-03 20:38 | OP ---
OPERATIVE REPORT PROCEDURE PERFORMED: Left radial arterial line. PREOPERATIVE DIAGNOSIS: Frequent blood draws and blood gas monitoring. POSTOPERATIVE DIAGNOSIS: Frequent blood draws and blood gas monitoring. OPERATORS: 1. Pierre Monsivais M.D. 2. Rowdy Rowe. 3. Jaspal Dempsey. I have discussed the risks, benefits and alternative therapies for the above-mentioned procedure and for both sedation/analgesia as well as necessary blood product administration, if indicated, as they pertain to this patient. The patient has indicated his or her understanding and acceptance of the risks and procedures discussed. ARTERIAL LINE PLACEMENT: Indications: Hemodynamic monitoring. A universal time-out was completed verifying correct patient, procedure, site, positioning, and implants or special equipment if applicable. Hugo's test was performed to ensure adequate perfusion. The patient's left wrist was prepped and draped in sterile fashion. 1% Lidocaine was used to anesthetize the area. An 18G Arrow arterial line was introduced into the left radial artery. The catheter was threaded over the guidewire and the needle was removed with appropriate pulsatile blood return. Blood loss was minimal. The catheter was then sutured in place to the skin and a sterile dressing applied. Perfusion to the extremity distal to the point of catheter insertion was checked and found to be adequate. The patient tolerated the procedure well. There was good blood return and waveform. The catheter was sutured in place and sterile dressing was applied by the nurse. There were no immediate complications. MMODL / IJN: [id number] /
[2020-02-03 22:58] LABS: Glucose,Whole Blood 163 mg/dL (75-99)
[2020-02-04] MEDS: PROPOFOL 1,000 MG in EMPTY BAG 1 BAG IV SCH ×10 (00:01→21:46)
[2020-02-04 04:26] LABS: Basophils % (A) 0 %; Eosinophils % (A) 0 %; HCT 35.5 % (39.0-53.0); HGB 10.7 gm/dL (13.0-17.5); Hypochromasia Marked; Lymphocytes # (A) 0.7 k/uL (1.0-4.8); Lymphocytes % (A) 15 %; MCH 29.2 pg (25.0-35.0); MCHC 30.1 g/dL (31.0-37.0); MCV 97.1 fL (80.0-100.0); Mean Platelet Volume 8.9; Monocytes # (A) 0.2 k/uL (0-1.0); Monocytes % (A) 4 %; Neutrophils # (A) 3.6 k/uL (1.3-7.7); Neutrophils % (A) 79 %; Platelet Count 110 k/uL (150-450); RBC 3.65 m/uL (4.30-5.90); RDW 14.8 % (11.5-15.5); WBC 4.6 k/uL (3.8-10.6)
[2020-02-04] MEDS: fentaNYL (PF) 1,000 MCG in SODIUM CHLORIDE 0.9% 80 ML IV SCH ×3 (04:40→18:02)
[2020-02-04 04:42] LABS: ALT 67 U/L (4-49); AST 46 U/L (17-59); African American GFR (CKD) >90 (>60 ml/min/1.73 sqM); Albumin 2.2 g/dL (3.5-5.0); Alkaline Phosphatase 85 U/L (38-126); Blood Urea Nitrogen 40 mg/dL (9-20); Calcium 8.5 mg/dL (8.4-10.2); Chloride 108 mmol/L (98-107); Creatine Kinase 263 U/L (55-170); Glucose 174 mg/dL (74-99); LDH 501 U/L (313-618); Non-African American GFR(CKD) >90 (>60 ml/min/1.73 sqM); Potassium 5.4 mmol/L (3.5-5.1); Sodium 147 mmol/L (137-145); Total Bilirubin 0.4 mg/dL (0.2-1.3); Total Protein 4.7 g/dL (6.3-8.2)
[2020-02-04] MEDS: ARTIFICIAL TEARS-HYPROMELLOSE DROPS 15 ML BTL BOTH EYES SCH ×6 (04:44→23:38)
[2020-02-04 04:46] LABS: Anion Gap 0 mmol/L; Carbon Dioxide 39 mmol/L (22-30)
[2020-02-04 04:58] LABS: C Reactive Protein 145.1 mg/L (<10.0)
[2020-02-04 05:12] LABS: ABG HCO3 39 mmol/L (21-25); ABG Oxygen Saturation 96.2 % (94-97); ABG PH 7.31 (7.35-7.45); ABG PO2 87 mmHg (83-108); ABG TCO2 42 mmol/L (19-24); Allen Test Performed? Yes
[2020-02-04 05:23] LABS: ABG PCO2 77 mmHg (35-45)
[2020-02-04 06:03] LABS: Glucose,Whole Blood 147 mg/dL (75-99)
[2020-02-04] MEDS: INSULIN ASPART (NovoLOG) 100 UNIT/ML VIAL SQ SCH ×4 (06:09→23:37)
[2020-02-04] MEDS: ALBUTEROL HFA INHALER INHALATION SCH ×4 (07:30→19:44)
--- NOTE | 2020-02-04 07:47 | XR ---
EXAMINATION TYPE: XR chest 1V portable DATE OF EXAM: 02/04/2020 COMPARISON: 02/03/2020 INDICATION: Tube placement TECHNIQUE: Single frontal view of the chest is obtained semiupright position. FINDINGS: The heart size is normal. The pulmonary vasculature is upper limits of normal. Infiltrates are present probably at the bilateral lung bases. Endotracheal tube tip is above the lore. Nasogastric tube transverses the thorax with tip in the le ft upper quadrant of the abdomen. Left central venous catheter is been removed. Pneumothorax is not i dentified. However, there appears to be subcutaneous emphysema within the neck bilaterally. IMPRESSION: 1. Bibasilar infiltrates, overall slightly improved from comparison. 2. Multiple lines and catheters discussed above. 3. Subcutaneous emphysema. Obvious pneumothorax is not identified.
[2020-02-04] MEDS ORDERED: TOCILIZUMAB 400 MG in SODIUM CHLORIDE 0.9% 80 ML IV ONE (08:32)
--- NOTE | 2020-02-04 09:09 | XR ---
EXAMINATION TYPE: XR elbow limited RT DATE OF EXAM: 02/04/2020 COMPARISON: None HISTORY: Rule out fracture TECHNIQUE: 2 view right elbow FINDINGS: Radius aligns normally with the humerus. There appear to be some degenerative joint changes present with spurring. No elevation of posterior fat pad is evident. No significant soft tissue swel ling is evident. No displaced fractures or dislocations are evident. IMPRESSION: 1. Some degenerative changes. No acute osseous abnormality evident. Follow-up exams can be performed 7-10 days from acute trauma for continued pain.
[2020-02-04] MEDS: CHLORHEXIDINE GLUCONATE 15 ML CUP MUCOUS MEM SCH ×2 (09:24→20:36)
[2020-02-04] MEDS: LACTULOSE 20 GM/30 ML CUP PO SCH ×2 (09:24→20:36)
[2020-02-04] MEDS: ASCORBIC ACID 500 MG TAB OG-TUBE SCH ×2 (09:24→20:36)
[2020-02-04] MEDS: PANTOPRAZOLE 40 MG/10 ML VIAL IVP SCH (09:24)
[2020-02-04] MEDS: methylPREDNISolone SOD SUCCI 40 MG/ML 1 ML VIAL IV SCH ×2 (09:25→20:36)
[2020-02-04] MEDS: ZINC SULFATE 220 MG CAP PO SCH (09:25)
[2020-02-04] MEDS: ENOXAPARIN 100 MG/ML SYRINGE SQ SCH ×2 (09:25→21:46)
--- NOTE | 2020-02-04 10:11 | P.PN ---
Subjective Progress Note Date: 02/04/20 Principal diagnosis: COVID 19 64-year-old male was admitted for acute hypoxic respiratory failure secondary to COVID 19 diagnosis. He was started on hydroxychloroquine, Rocephin and doxycycline along with albuterol inhaler and placed on droplet precautions. He was started on low-dose IV steroids and given supplemental O2 maintain maintain O2 saturation greater than 92%. He was initially on 6 L nasal cannula which progressively increased to 15 L high flow. Awake proning was attempted without much relief. Patient continued to deteriorate and pulmonology was consulted. Pulmonology recommended transfer to ICU for closer monitoring on 01/29/2020. He was intubated on 01/30/2020 overnight. He continues to be intubated into 02/02/2020 Patient examined at bedside currently on maximal doses of Nimbex & propofol, patient's heart rate has improved, patient continues to be febrile T-max 100.7 last night. Vent settings adjusted currently on 55% FiO2 with a PEEP of +15 .c hest x-ray showing bibasilar infiltrates and subcutaneous emphysema without any obvious pneumothorax. There's reporting subcutaneous emphysema getting bigger, patient's acute phase markers CRP and LDH are down to 145 and 501 respectively, d-dimer is 0.94. sodium is 147 potassium 5.4 Objective - Vital Signs Vital signs: Vital Signs Temp 99.7 F H 02/04/20 08:00 Pulse 78 02/04/20 09:00 Resp 30 H 02/04/20 09:00 BP 91/58 02/04/20 08:00 Pulse Ox 92 L 02/04/20 09:00 Intake & Output 02/03/20 02/04/20 02/04/20 18:59 06:59 18:59 Intake Total 2382.028 1975.335 571.774 Output Total 1440 1365 450 Balance 942.028 610.335 121.774 Weight 99.2 kg 98.7 kg 98.7 kg Intake: IV 775 669 168 Normal Saline Pressure 45 69 18 Bag Sodium Chloride 0.9% 1, 600 550 150 000 ml @ 50 mls/hr IV . Q20H [facility] Rx#:[id number] Tocilizumab 400 mg In 80 50 Sodium Chloride 0.9% 80 ml @ 100 mls/hr IV Q8HR@ 1400,2200 [facility] Rx#: [id number] cefTRIAXone 1 gm In 50 Sodium Chloride 0.9% 50 ml @ 100 mls/hr IVPB Q24HR [facility] Rx#:[id number] Intake, IV Titration 727.028 578.335 199.774 Amount Cisatracurium 200 mg In 16.368 Sodium Chloride 0.9% 100 ml @ 1 MCG/KG/MIN 5.58 mls/hr IV .Q24H [facility] Rx#: [id number] Cisatracurium 200 mg In 35.433 Sodium Chloride 0.9% 180 ml @ 1 MCG/KG/MIN 5.58 mls/hr IV .Q24H [facility] Rx#: [id number] Propofol 1,000 mg In 591.595 390.149 199.774 Empty Bag 1 bag @ Titrate IV .Q0M [facility] Rx#: [id number] fentaNYL (PF) 1,000 mcg 100 171.818 In Sodium Chloride 0.9% 80 ml @ 0.5 MCG/KG/HR 4. 65 mls/hr IV .[id number] [facility] Rx#:[id number] Tube Feeding 820 638 174 Other 60 90 30 Output: Urine 1440 1365 450 Other: Voiding Method Indwelling Catheter Indwelling Catheter ABP, PAP, CO, CI - Last Documented Arterial Blood Pressure 110/48 - Exam Constitutional: No acute distress, intubated sedated Eyes: Anicteric sclerae, moist conjunctiva, no lid-lag, PERRLA ENMT: NC/AT,Oropharynx clear, no erythema, exudates, palpable crepitus in the neck appears to be worsening continue to outlined with a marker Neck:Supple, FROM, no masses, or JVD, No carotid bruits; No thyromegaly Lungs: Clear to auscultation, Clear to percussion, Normal respiratory effort, no accessory muscle use Cardiovascular: Regular rate and rhythm, No murmurs, gallops, or rubs no peripheral edema Abdominal: Soft Nontender, nom distended, no guarding, no rebound or rigidity, Normoactive bowel sounds No hepatomegaly, No splenomegaly, No palpable mass No abdominal wall hernia noted Skin: Normal temperature, tone, texture, turgor, No induration No subcutaneous nodules, No rash, lesions, No ulcers Extremities:No digital cyanosis No clubbing, Pedal pulses intact and symmetrical Radial pulses intact and symmetrical Normal gait and station, No calf tenderness Neuro: Episodes of agitation continues to be sedated and intubated - Labs CBC & Chem 7: 02/04/20 04:00 02/04/20 04:00 Labs: Abnormal Lab Results - Last 24 Hours (Table) 02/03/20 02/03/20 02/03/20 Range/Units 04:30 12:14 17:35 RBC (4.30-5.90) m/uL Hgb (13.0-17.5) gm/dL Hct (39.0-53.0) % MCHC (31.0-37.0) g/dL Plt Count (150-450) k/uL Lymphocytes # (1.0-4.8) k/uL D-Dimer (<0.60) mg/L FEU ABG pH (7.35-7.45) ABG pCO2 (35-45) mmHg ABG HCO3 (21-25) mmol/L ABG Total CO2 (19-24) mmol/L Sodium (137-145) mmol/L Potassium (3.5-5.1) mmol/L Chloride (98-107) mmol/L Carbon Dioxide (22-30) mmol/L BUN (9-20) mg/dL Glucose (74-99) mg/dL POC Glucose (mg/dL) 138 H 135 H (75-99) mg/dL Ferritin 882.9 H (22.0-322.0) ng/mL ALT (4-49) U/L Creatine Kinase (55-170) U/L C-Reactive Protein (<10.0) mg/L Total Protein (6.3-8.2) g/dL Albumin (3.5-5.0) g/dL 02/03/20 02/04/20 02/04/20 Range/Units 22:57 04:00 04:00 RBC 3.65 L (4.30-5.90) m/uL Hgb 10.7 L (13.0-17.5) gm/dL Hct 35.5 L (39.0-53.0) % MCHC 30.1 L (31.0-37.0) g/dL Plt Count 110 L (150-450) k/uL Lymphocytes # 0.7 L (1.0-4.8) k/uL D-Dimer 0.94 H (<0.60) mg/L FEU ABG pH (7.35-7.45) ABG pCO2 (35-45) mmHg ABG HCO3 (21-25) mmol/L ABG Total CO2 (19-24) mmol/L Sodium (137-145) mmol/L Potassium (3.5-5.1) mmol/L Chloride (98-107) mmol/L Carbon Dioxide (22-30) mmol/L BUN (9-20) mg/dL Glucose (74-99) mg/dL POC Glucose (mg/dL) 163 H (75-99) mg/dL Ferritin (22.0-322.0) ng/mL ALT (4-49) U/L Creatine Kinase (55-170) U/L C-Reactive Protein (<10.0) mg/L Total Protein (6.3-8.2) g/dL Albumin (3.5-5.0) g/dL 02/04/20 02/04/20 02/04/20 Range/Units 04:00 05:06 06:02 RBC (4.30-5.90) m/uL Hgb (13.0-17.5) gm/dL Hct (39.0-53.0) % MCHC (31.0-37.0) g/dL Plt Count (150-450) k/uL Lymphocytes # (1.0-4.8) k/uL D-Dimer (<0.60) mg/L FEU ABG pH 7.31 L (7.35-7.45) ABG pCO2 77 H* (35-45) mmHg ABG HCO3 39 H (21-25) mmol/L ABG Total CO2 42 H (19-24) mmol/L Sodium 147 H (137-145) mmol/L Potassium 5.4 H (3.5-5.1) mmol/L Chloride 108 H (98-107) mmol/L Carbon Dioxide 39 H (22-30) mmol/L BUN 40 H (9-20) mg/dL Glucose 174 H (74-99) mg/dL POC Glucose (mg/dL) 147 H (75-99) mg/dL Ferritin (22.0-322.0) ng/mL ALT 67 H (4-49) U/L Creatine Kinase 263 H (55-170) U/L C-Reactive Protein 145.1 H (<10.0) mg/L Total Protein 4.7 L (6.3-8.2) g/dL Albumin 2.2 L (3.5-5.0) g/dL Microbiology - Last 24 Hours (Table) 02/03/20 16:55 Catheter Tip Culture - Preliminary Catheter Tip 02/02/20 18:09 Blood Culture - Preliminary Blood No Growth after 24 hours 02/03/20 01:05 Gram Stain - Preliminary Sputum Sputum Culture - Preliminary Assessment and Plan Assessment: Acute hypoxic respiratory failure * Multifactorial due to COVID 19 pneumonia with superimposed ARDS * Patient continues to require ventilatory support pulmonary following * AC with a rate of 30, tidal volume 450, FiO2 55% and a PEEP of 15. Peak pressure of 33. Plateau of 28. ARDS * Continue ARDS net protocol per pulmonary * Continue systemic steroids with Solu-Medrol NCoV pneumonia * Continue to follow daily chest x-rays * Continue zinc * Patient received 2 doses of Tocilizumab 400 mg IV with a good decrease of his acute phase reactants & markers Sepsis * Secondary to Covid pneumonia in a Immunocompromised patient previously on methotrexate for history of rheumatoid arthritis * Appreciate ID recommendations patient still febrile without leukocytosis * Rocephin discontinued Pneumomediastinum * Possibly secondary to increased PeeP of 15 inpatient on the vent with ARDS * Continue to monitor with daily chest x-rays Left upper extremity swelling * We'll check a left upper extremity venous Doppler to rule out thromboembolic disease * Currently on therapeutic Lovenox Hypernatremia Anemia * Hemoglobin 10.7 likely dilutional * Continue to monitor with daily labs Disposition * patient is critical discussed with pulmonary patient would need IL-6 modulation withTocilizumab * Continue current treatment * patient critical with poor prognosis
[2020-02-04 11:06] LABS: Ferritin 818.5 ng/mL (22.0-322.0)
[2020-02-04 11:48] LABS: Glucose,Whole Blood 149 mg/dL (75-99)
[2020-02-04] MEDS: CISATRACURIUM 200 MG in SODIUM CHLORIDE 0.9% 100 ML IV SCH (12:38)
--- NOTE | 2020-02-04 16:17 | PN ---
PROGRESS NOTE PULMONARY/CRITICAL CARE PROGRESS NOTE: DATE OF SERVICE: 02/04/2020 Critical care time greater than 30 minutes. This is a 64-year-old male who was admitted way back on January 21. He has a history of acute COVID-19 pneumonia with hypoxemic respiratory failure requiring intubation and mechanical ventilation. He was really not making any progress, so we were able to get for him the monoclonal antibody against interleukin 6, called Tocilizumab. He got a dosage yesterday and today of that. Hopefully, that will lead to some improvement in his overall clinical situation. In addition, he has acute hypercapnic respiratory failure, as the elevated proinflammatory markers including D-dimer, LDH, ferritin, C- reactive protein, etc., and does have a history of rheumatoid arthritis, previously on methotrexate in the outpatient setting. Currently, the patient remains on mechanical ventilator. His vent settings include the volume assist-control mode rate of 30, tidal volume 450, FiO2 of 55%, PEEP of 15. He is currently also on propofol at 75 mcg/kg per minute, Nimbex at 2 mcg/kg per minute per minute and fentanyl at 1.5 mcg/kg per hour. In addition, he is getting saline at 50 mL an hour and Vital high-protein at 58 with a goal of 50 mL an hour. He has significant subcutaneous air around the neck area. This has worsened a bit. She does not have tension subcutaneous emphysema. Blood gases show a pO2 of 87, pCO2 of 77, and a pH of 7.31. An x-ray of his right elbow just showed degenerative changes. Current vital signs are reviewed. Temperature is improved a 98.9, heart rate 72, respiratory rate 30, blood pressure 126/55, saturations are 94%. He is on 55% and 15 of PEEP. Currently sedated. He is also paralyzed. HEENT: Examination is grossly unremarkable. There was orally placed endotracheal tube and NG tube. The leads for train of 4 monitoring are noted in the facial area. NECK: Supple, full range of motion. No adenopathy, thyromegaly or neck vein distention. CARDIOVASCULAR: Examination reveals regular rhythm and rate. Heart rate is 72. S1, S2 normal. Heart sounds are distant. No murmur. LUNGS: Reveal coarse bilateral rhonchi. Breath sounds equal. No wheezes or crackles. ABDOMEN: Soft, bowel sounds are heard. EXTREMITIES: Intact. Minimal edema. SKIN: Without rash. NEUROLOGIC: Examination could not be adequately assessed as he is currently sedated and paralyzed. Microbiology shows Fiordaliza albicans and sputum. LABS: Reviewed. White count 4.6, hemoglobin 10.7, hematocrit 35.5, platelet count 110,000. D-dimer 0.94. Blood gases have been noted. Sodium 147, potassium 5.4, chloride 108, CO2 is 39, anion gap is 0. BUN and creatinine were 40 and 0.71. Ferritin 808.5, ALT 67, CK 263. C-reactive protein 145.1, and albumin is 2.2. Current chest x-ray shows bibasilar infiltrates, slightly improved. There is also some subcutaneous emphysema particularly in the neck and upper chest area. No pneumothorax is noted. MEDICATIONS: Reviewed. He is currently on albuterol inhaler, Artificial Tears, vitamin C, chlorhexidine, Cisatracurium, Lovenox at therapeutic doses, fentanyl, insulin, lactulose, Solu-Medrol, metoprolol, Narcan, Protonix, potassium replacement, saline, and zinc. The patient is also on propofol as mentioned at 75 mcg/kg per minute. ASSESSMENT: 1. Acute COVID-19 pneumonia with hypoxemic respiratory failure requiring intubation and mechanical ventilation, and failure to wean from mechanical ventilation. 2. Acute respiratory distress syndrome, currently at high concentrations of both oxygen and PEEP. 3. Acute hypercapnic respiratory failure. 4. Elevated inflammatory markers including D-dimer, LDH, ferritin, C-reactive protein, among other things. 5. History of rheumatoid arthritis, previously on methotrexate as an outpatient. PLAN: The patient did receive 2 doses of tocilizumab. He received 1 dose yesterday, 1 dose today. The right elbow x-ray only shows arthritic changes. The patient will continue on tube feeds. He remains on propofol, fentanyl and Nimbex. Additional recommendations and suggestions are forthcoming. Prognosis is guarded. No additional recommendations are made. We ARE hoping that the tocilizumab does make an improvement in his overall condition. Critical care time more than 30 minutes. MMODL / ALANAN: [id number] /
[2020-02-04] MEDS: PIPERACILLIN-TAZOBACTAM 3.375 GM in SODIUM CHLORIDE 0.9% 100 ML IVPB SCH ×2 (16:50→23:38)
--- NOTE | 2020-02-04 17:02 | PN ---
PROGRESS NOTE DATE OF SERVICE: 02/04/2020 REASON FOR FOLLOWUP: Acute COVID-19 pneumonia. INTERVAL HISTORY: Patient overall fever pattern has improved with T-max of 100.7. The patient is hemodynamically stable, not on any pressor support. FiO2 is currently at 55% with the neck area swelling decreased. No diarrhea has been reported. PHYSICAL EXAMINATION: Blood pressure 142/61 with a pulse of 85, temperature of 98, he is 94% on 55% FiO2. General description is a middle-aged male, lying in bed in no distress. RESPIRATORY SYSTEM: Unlabored breathing, decreased with no wheeze. HEART: S1, S2. Regular rate and rhythm. ABDOMEN: Soft, no tenderness. LABS: Hemoglobin is 10.1, white count of 4.6 BUN of 4, creatinine 0.71. DIAGNOSTIC IMPRESSION AND PLAN: Patient with acute respiratory failure, likely multifactorial. This patient did have acute COVID-19 pneumonia with possible aspiration pneumonitis. Zosyn will be added. The patient will continued current treatment protocol using the steroids, zinc and continue supportive care. MMODL / IJN: [id number] /
[2020-02-04 18:06] LABS: Glucose,Whole Blood 144 mg/dL (75-99)
[2020-02-04] MEDS: SODIUM CHLORIDE 0.9% 1,000 ML IV SCH (20:39)
[2020-02-04 23:27] LABS: Glucose,Whole Blood 155 mg/dL (75-99)
[2020-02-05] MEDS: PROPOFOL 1,000 MG in EMPTY BAG 1 BAG IV SCH ×12 (00:03→23:12)
[2020-02-05] MEDS: fentaNYL (PF) 1,000 MCG in SODIUM CHLORIDE 0.9% 80 ML IV SCH ×3 (00:53→18:35)
[2020-02-05] MEDS: ARTIFICIAL TEARS-HYPROMELLOSE DROPS 15 ML BTL BOTH EYES SCH ×6 (03:21→23:11)
[2020-02-05 04:15] LABS: Basophils % (A) 0 %; Eosinophils % (A) 0 %; HCT 35.4 % (39.0-53.0); HGB 10.6 gm/dL (13.0-17.5); Hypochromasia Marked; Lymphocytes # (A) 0.9 k/uL (1.0-4.8); Lymphocytes % (A) 18 %; MCH 29.1 pg (25.0-35.0); Mean Platelet Volume 10.1; Monocytes # (A) 0.4 k/uL (0-1.0); Monocytes % (A) 7 %; Neutrophils # (A) 3.8 k/uL (1.3-7.7); Neutrophils % (A) 73 %; Platelet Count 113 k/uL (150-450); RBC 3.65 m/uL (4.30-5.90); RDW 14.8 % (11.5-15.5); WBC 5.3 k/uL (3.8-10.6)
[2020-02-05 04:38] LABS: ALT 58 U/L (4-49); AST 32 U/L (17-59); African American GFR (CKD) >90 (>60 ml/min/1.73 sqM); Albumin 2.3 g/dL (3.5-5.0); Alkaline Phosphatase 79 U/L (38-126); Blood Urea Nitrogen 39 mg/dL (9-20); C Reactive Protein 48.4 mg/L (<10.0); Calcium 8.3 mg/dL (8.4-10.2); Chloride 107 mmol/L (98-107); Glucose 153 mg/dL (74-99); LDH 428 U/L (313-618); Non-African American GFR(CKD) >90 (>60 ml/min/1.73 sqM); Potassium 5.1 mmol/L (3.5-5.1); Sodium 145 mmol/L (137-145); Total Bilirubin 0.4 mg/dL (0.2-1.3); Total Protein 4.9 g/dL (6.3-8.2)
[2020-02-05 04:44] LABS: Anion Gap -1 mmol/L; Carbon Dioxide 39 mmol/L (22-30)
[2020-02-05 05:20] LABS: Glucose,Whole Blood 135 mg/dL (75-99)
[2020-02-05 05:45] LABS: ABG Base Excess 12.6 mmol/L; ABG HCO3 39 mmol/L (21-25); ABG Oxygen Saturation 97.1 % (94-97); ABG PH 7.33 (7.35-7.45); ABG PO2 95 mmHg (83-108); ABG TCO2 41 mmol/L (19-24); Allen Test Performed? Yes
[2020-02-05] MEDS: INSULIN ASPART (NovoLOG) 100 UNIT/ML VIAL SQ SCH ×4 (05:56→23:20)
[2020-02-05 06:02] LABS: ABG PCO2 73 mmHg (35-45)
[2020-02-05] MEDS: CISATRACURIUM 200 MG in SODIUM CHLORIDE 0.9% 100 ML IV SCH ×2 (06:21→18:34)
--- NOTE | 2020-02-05 07:33 | XR ---
EXAMINATION TYPE: XR chest 1V portable DATE OF EXAM: 02/05/2020 COMPARISON: 02/04/2020 HISTORY: SOB, Follow Up FINDINGS: Indwelling tubes and catheters are unchanged. No Change in scattered infiltrates and subcutaneous emphysema overlying the neck. Stable appearance of the cardio-mediastinal structures at this time. Pleural effusion unchanged. IMPRESSION: 1. Stable portable chest. Clinical correlation and follow up until resolution is recommended.
[2020-02-05] MEDS: ALBUTEROL HFA INHALER INHALATION SCH ×4 (07:42→19:44)
[2020-02-05] MEDS: LACTULOSE 20 GM/30 ML CUP PO SCH ×2 (09:15→20:09)
[2020-02-05] MEDS: ASCORBIC ACID 500 MG TAB OG-TUBE SCH ×2 (09:15→20:09)
[2020-02-05] MEDS: CHLORHEXIDINE GLUCONATE 15 ML CUP MUCOUS MEM SCH ×2 (09:15→20:09)
[2020-02-05] MEDS: ENOXAPARIN 100 MG/ML SYRINGE SQ SCH ×2 (09:15→20:10)
[2020-02-05] MEDS: methylPREDNISolone SOD SUCCI 40 MG/ML 1 ML VIAL IV SCH ×2 (09:15→20:10)
[2020-02-05] MEDS: PANTOPRAZOLE 40 MG/10 ML VIAL IVP SCH (09:16)
[2020-02-05] MEDS: PIPERACILLIN-TAZOBACTAM 3.375 GM in SODIUM CHLORIDE 0.9% 100 ML IVPB SCH ×3 (09:16→23:13)
[2020-02-05] MEDS: ZINC SULFATE 220 MG CAP PO SCH (09:17)
[2020-02-05 12:12] LABS: Glucose,Whole Blood 146 mg/dL (75-99)
--- NOTE | 2020-02-05 12:17 | PN ---
PROGRESS NOTE PULMONARY/CRITICAL CARE PROGRESS NOTE: DATE OF SERVICE: February 05, 2020 CRITICAL CARE TIME: Greater than 30 minutes. A 64-year-old male who was admitted back on January 21. He has a history of acute COVID- 19 pneumonia with hypoxemic respiratory failure requiring intubation and mechanical ventilation. Anyway, more recently, because he was not making any progress, we were able to prescribe the monoclonal antibody against the interleukin-6 receptor, called tocilizumab. He got 2 doses I believe on the and . Anyway, his overall clinical situation has seemed to stabilize just a bit. We have been monitoring his inflammatory markers every couple of days. The patient does have a history of rheumatoid arthritis and has previously been on methotrexate. The patient remains on mechanical ventilator. Currently, he is on the volume assist-control mode rate of 30, tidal volume 450, FiO2 of 55%, PEEP of 15. Blood gases are reasonable with a pO2 of 95, pCO2 of 73, pH is 7.33. We are going to drop the FiO2 down to 45% and maybe later today make a PEEP change from 15 to 12. We will wait and see what his oxygenation does. He currently remains on propofol at 75 mcg/kg per minute, fentanyl at 1.5 mcg/kg per hour, Nimbex at 3 mcg/kg/per minute, saline at 50 mL an hour, and tube feeds with Vital AF at 43 with a goal of 43 mL an hour. He had a pretty uneventful night last night. He does still have significant subcutaneous emphysema around the neck and upper chest area. I do not appreciate any tension subcutaneous emphysema. Chest x-ray, labs and medications are all reviewed. PHYSICAL EXAMINATION: VITAL SIGNS: Current vital signs are reviewed. His temperature is 99.9, heart rate 77, respiratory rate 30, blood pressure 111/54, saturations are between 89% and 91% on the 45% and 15 of PEEP. GENERAL: Appears in no acute distress. Currently sedated and paralyzed. He has got an orally placed endotracheal tube and NG tube. HEENT: Examination is grossly unremarkable. NECK: Reveals some significant subcutaneous emphysema. It probably is a bit worse since yesterday. He does have a typical crunch sound when you touch these areas impress on these areas. No neck vein distention. No adenopathy or thyromegaly. CARDIOVASCULAR: Examination reveals regular rhythm and rate. Heart rate about 80 beats per minute. Heart sounds are distant. S1, S2 normal. No distinct murmur. LUNGS: Reveal coarse bilateral rhonchi. Breath sounds equal. ABDOMEN: Soft. Bowel sounds are heard. EXTREMITIES: Are intact. No to minimal edema. SKIN: Without rash. NEUROLOGIC: Examination is difficult to assess because he is so heavily sedated and paralyzed. Microbiology is negative. LABS: Labs are reviewed. White count 5.3, hemoglobin 10.6, hematocrit 35.4, platelet count 113,000. Blood gases again show pO2 of 95, a pCO2 of 73, and a pH is 7.33. Sodium 145, potassium 5.1, chloride 107, CO2 is 39. BUN and creatinine were 39 and 0.68. Calcium 8.3. Ferritin 676. ALT was 58. LDH 428. C-reactive protein 48.4, and albumin 2.3. A chest x-ray from this morning shows relatively stable appearance of the chest with some subcutaneous emphysema over the neck area. CURRENT MEDICATIONS: Current medications are reviewed. He is on albuterol inhaler, Artificial Tears, ascorbic acid, Peridex, Nimbex, Lovenox, fentanyl, insulin, lactulose, Solu-Medrol, metoprolol, Narcan, Protonix, Zosyn, potassium replacement therapy, propofol and zinc. ASSESSMENT: 1. Acute COVID-19 pneumonia with hypoxemic respiratory failure requiring intubation and mechanical ventilation and failure to wean from mechanical ventilation. 2. Acute respiratory distress syndrome, currently on relatively high concentrations of both oxygen and PEEP. 3. Acute hypercapnic respiratory failure. 4. Elevated inflammatory markers including D-dimer, LDH, ferritin, C-reactive protein, among other things. 5. History of rheumatoid arthritis, previously on methotrexate as an outpatient. 6. Possible cytokine storm syndrome, status post 2 doses of tocilizumab. PLAN: The patient seems to be a bit more stable. We have been able to drop his FiO2 down to 45%. We may make a PEEP change later today. He remains on tube feeds. He also remains sedated and paralyzed. His blood gases are reasonable. Labs, x-rays and medications are reviewed. His overall prognosis though remains very guarded. We will continue to follow closely. Additional recommendations and suggestions are forthcoming. CRITICAL CARE TIME: Greater than 30 minutes. MMODL / IJN: [id number] /
[2020-02-05] MEDS: SODIUM CHLORIDE 0.9% 1,000 ML IV SCH (15:13)
--- NOTE | 2020-02-05 16:44 | P.PN ---
Subjective Progress Note Date: 02/05/20 Principal diagnosis: Covid pneumonia 61-year-old male who was admitted on January 21 patient has a history of acute cough. 19 pneumonia with hypoxic respiratory failure. Patient was started hydroxychloroquine, Rocephin and doxycycline, albuterol inhaler droplet precautions. Patient is given low-dose IV steroids and supplemental oxygen he got progressively hypoxic Prolene was attempted without relief patient was transferred to the intensive care unit on January 28 on the patient developed worsening respiratory failure and was subsequently intubated. Patient was noted to have subcu emphysema without any obvious pneumothorax Objective - Vital Signs Vital signs: Vital Signs Temp 99.1 F 02/05/20 12:00 Pulse 70 02/05/20 14:00 Resp 30 H 02/05/20 14:00 BP 91/58 02/05/20 07:00 Pulse Ox 93 L 02/05/20 14:00 Intake & Output 02/04/20 02/05/20 02/05/20 18:59 06:59 18:59 Intake Total 2470.636 2417.609 1506.128 Output Total 1485 1360 730 Balance 251.831 5770.609 776.128 Weight 98.7 kg 98.6 kg 98.6 kg Intake: IV 672 754 524 Normal Saline Pressure 72 54 24 Bag Piperacillin-Tazobactam 3 100 .375 gm In Sodium Chloride 0.9% 100 ml @ 25 mls/hr IVPB Q8HR [facility] Rx# :[id number] Sodium Chloride 0.9% 1, 600 600 400 000 ml @ 50 mls/hr IV . Q20H [facility] Rx#:[id number] Tocilizumab 400 mg In 100 Sodium Chloride 0.9% 80 ml @ 100 mls/hr IV Q8HR@ 1400,2200 [facility] Rx#: [id number] Intake, IV Titration 844.636 885.609 406.128 Amount Cisatracurium 200 mg In 183.632 197.718 17.298 Sodium Chloride 0.9% 100 ml @ 1 MCG/KG/MIN 5.58 mls/hr IV .Q24H [facility] Rx#: [id number] Propofol 1,000 mg In 474.539 592.333 288.83 Empty Bag 1 bag @ Titrate IV .Q0M [facility] Rx#: [id number] fentaNYL (PF) 1,000 mcg 186.465 95.558 100 In Sodium Chloride 0.9% 80 ml @ 0.5 MCG/KG/HR 4. 65 mls/hr IV .[id number] [facility] Rx#:[id number] Tube Feeding 864 688 516 Other 90 90 60 Output: Urine 1485 1360 730 Other: Voiding Method Indwelling Catheter Indwelling Catheter Indwelling Catheter ABP, PAP, CO, CI - Last Documented Arterial Blood Pressure 113/56 - Constitutional Constitutional Comment(s): Patient is intubated - Neck Neck: Present: other (subcutaneous emphyma) - Respiratory Respiratory: bilateral: diminished - Cardiovascular Rhythm: regular - Gastrointestinal General gastrointestinal: Present: decreased bowel sounds - Neurologic Neurologic Comment(s): Not following commands - Psychiatric Psychiatric Comment(s): Limited insight - Labs CBC & Chem 7: 02/05/20 04:01 02/05/20 04:01 Labs: Abnormal Lab Results - Last 24 Hours (Table) 02/04/20 02/04/20 02/05/20 Range/Units 18:04 23:25 04:01 RBC 3.65 L (4.30-5.90) m/uL Hgb 10.6 L (13.0-17.5) gm/dL Hct 35.4 L (39.0-53.0) % MCHC 30.0 L (31.0-37.0) g/dL Plt Count 113 L (150-450) k/uL Lymphocytes # 0.9 L (1.0-4.8) k/uL ABG pH (7.35-7.45) ABG pCO2 (35-45) mmHg ABG HCO3 (21-25) mmol/L ABG Total CO2 (19-24) mmol/L ABG O2 Saturation (94-97) % Carbon Dioxide (22-30) mmol/L BUN (9-20) mg/dL Glucose (74-99) mg/dL POC Glucose (mg/dL) 144 H 155 H (75-99) mg/dL Calcium (8.4-10.2) mg/dL Ferritin (22.0-322.0) ng/mL ALT (4-49) U/L C-Reactive Protein (<10.0) mg/L Total Protein (6.3-8.2) g/dL Albumin (3.5-5.0) g/dL 02/05/20 02/05/20 02/05/20 Range/Units 04:01 05:17 05:40 RBC (4.30-5.90) m/uL Hgb (13.0-17.5) gm/dL Hct (39.0-53.0) % MCHC (31.0-37.0) g/dL Plt Count (150-450) k/uL Lymphocytes # (1.0-4.8) k/uL ABG pH 7.33 L (7.35-7.45) ABG pCO2 73 H* (35-45) mmHg ABG HCO3 39 H (21-25) mmol/L ABG Total CO2 41 H (19-24) mmol/L ABG O2 Saturation 97.1 H (94-97) % Carbon Dioxide 39 H (22-30) mmol/L BUN 39 H (9-20) mg/dL Glucose 153 H (74-99) mg/dL POC Glucose (mg/dL) 135 H (75-99) mg/dL Calcium 8.3 L (8.4-10.2) mg/dL Ferritin 676.0 H (22.0-322.0) ng/mL ALT 58 H (4-49) U/L C-Reactive Protein 48.4 H (<10.0) mg/L Total Protein 4.9 L (6.3-8.2) g/dL Albumin 2.3 L (3.5-5.0) g/dL 02/05/20 Range/Units 12:10 RBC (4.30-5.90) m/uL Hgb (13.0-17.5) gm/dL Hct (39.0-53.0) % MCHC (31.0-37.0) g/dL Plt Count (150-450) k/uL Lymphocytes # (1.0-4.8) k/uL ABG pH (7.35-7.45) ABG pCO2 (35-45) mmHg ABG HCO3 (21-25) mmol/L ABG Total CO2 (19-24) mmol/L ABG O2 Saturation (94-97) % Carbon Dioxide (22-30) mmol/L BUN (9-20) mg/dL Glucose (74-99) mg/dL POC Glucose (mg/dL) 146 H (75-99) mg/dL Calcium (8.4-10.2) mg/dL Ferritin (22.0-322.0) ng/mL ALT (4-49) U/L C-Reactive Protein (<10.0) mg/L Total Protein (6.3-8.2) g/dL Albumin (3.5-5.0) g/dL Microbiology - Last 24 Hours (Table) 02/03/20 01:05 Gram Stain - Final Sputum Sputum Culture - Final Fiordaliza albicans 02/02/20 18:09 Blood Culture - Preliminary Blood No Growth after 48 hours Assessment and Plan (1) Pneumonia due to COVID-19 virus Narrative/Plan: With vent dependent respiratory failure continue appreciate critical care input Current Visit: Yes Status: Acute Code(s): U07.1 - COVID-19; J12.89 - OTHER VIRAL PNEUMONIA SNOMED Code(s): 185506752 (2) Subcutaneous emphysema Narrative/Plan: Continue to monitor no evidence of tension pneumothorax tantamount to do any x- rays Current Visit: Yes Status: Acute Code(s): T79.7XXA - TRAUMATIC SUBCUTANEOUS EMPHYSEMA, INITIAL ENCOUNTER SNOMED Code(s): 8797962 (3) Rheumatoid arthritis Narrative/Plan: Patient immunocompromise was previously on methotrexate patient received tocilizumab 2 doses on the and Current Visit: Yes Status: Acute Code(s): M06.9 - RHEUMATOID ARTHRITIS, UN SPECIFIED SNOMED Code(s): 31438176 Plan: Patient prognosis continues to be grave continue critical care management
[2020-02-05 17:53] LABS: Glucose,Whole Blood 131 mg/dL (75-99)
--- NOTE | 2020-02-05 19:14 | PN ---
PROGRESS NOTE DATE OF SERVICE: 02/05/2020 REASON FOR FOLLOWUP: Acute COVID-19 pneumonia. INTERVAL HISTORY: The patient is currently afebrile. The patient did have fever early this morning. The patient is hemodynamically stable, not on any pressor support. FiO2 is currently at 40%. No significant purulent secretions from the ET and no diarrhea has been reported. PHYSICAL EXAMINATION: Blood pressure 120/53 with a pulse of 77, temperature 98.5. He is 92% on 40% FiO2. General description is a middle-aged male lying in bed in no distress. RESPIRATORY SYSTEM: Unlabored breathing. Decreased intensity of breath sounds at the bases. No wheeze. HEART: S1, S2. Regular rate and rhythm. ABDOMEN: Soft. No tenderness. LABS: Hemoglobin is 10.6, white count 5.3. BUN of 39, creatinine 0.68. DIAGNOSTIC IMPRESSION AND PLAN: Patient with acute respiratory failure, which is likely multifactorial in this patient who did have COVID-19 pneumonia. The patient is currently on the vent. He has completed his Plaquenil and Zithromax therapy. Currently on steroids. Zosyn was added for possible bacterial pneumonia, to continue and monitor clinical course closely. MMODL / IJN: [id number] / MTDD
[2020-02-05 23:21] LABS: Glucose,Whole Blood 108 mg/dL (75-99)
[2020-02-05 23:52] LABS: Glucose,Whole Blood 92 mg/dL (75-99)
[2020-02-06] MEDS: fentaNYL (PF) 1,000 MCG in SODIUM CHLORIDE 0.9% 80 ML IV SCH ×3 (03:07→22:58)
[2020-02-06] MEDS: ARTIFICIAL TEARS-HYPROMELLOSE DROPS 15 ML BTL BOTH EYES SCH ×5 (03:08→20:49)
[2020-02-06] MEDS: PROPOFOL 1,000 MG in EMPTY BAG 1 BAG IV SCH ×9 (03:40→22:43)
[2020-02-06 04:38] LABS: Basophils % (A) 0 %; Eosinophils # (A) 0.1 k/uL (0-0.7); Eosinophils % (A) 1 %; HCT 36.3 % (39.0-53.0); HGB 10.9 gm/dL (13.0-17.5); Hypochromasia Moderate; Lymphocytes # (A) 0.9 k/uL (1.0-4.8); Lymphocytes % (A) 12 %; MCHC 29.9 g/dL (31.0-37.0); MCV 96.8 fL (80.0-100.0); Mean Platelet Volume 9.8; Monocytes # (A) 0.3 k/uL (0-1.0); Monocytes % (A) 5 %; Neutrophils # (A) 5.6 k/uL (1.3-7.7); Neutrophils % (A) 80 %; Platelet Count 120 k/uL (150-450); RBC 3.75 m/uL (4.30-5.90); RDW 14.9 % (11.5-15.5)
[2020-02-06 05:08] LABS: ALT 60 U/L (4-49); AST 34 U/L (17-59); African American GFR (CKD) >90 (>60 ml/min/1.73 sqM); Albumin 2.3 g/dL (3.5-5.0); Alkaline Phosphatase 76 U/L (38-126); Blood Urea Nitrogen 37 mg/dL (9-20); C Reactive Protein 21.6 mg/L (<10.0); Calcium 8.2 mg/dL (8.4-10.2); Chloride 104 mmol/L (98-107); Glucose 141 mg/dL (74-99); LDH 451 U/L (313-618); Non-African American GFR(CKD) >90 (>60 ml/min/1.73 sqM); Potassium 5.2 mmol/L (3.5-5.1); Sodium 142 mmol/L (137-145); Total Bilirubin 0.4 mg/dL (0.2-1.3); Total Protein 4.8 g/dL (6.3-8.2)
[2020-02-06 05:12] LABS: Anion Gap -1 mmol/L; Carbon Dioxide 39 mmol/L (22-30)
[2020-02-06] MEDS: CISATRACURIUM 200 MG in SODIUM CHLORIDE 0.9% 100 ML IV SCH ×2 (05:15→22:44)
[2020-02-06 05:21] LABS: Glucose,Whole Blood 124 mg/dL (75-99)
[2020-02-06] MEDS: INSULIN ASPART (NovoLOG) 100 UNIT/ML VIAL SQ SCH ×3 (05:21→19:58)
[2020-02-06 05:45] LABS: ABG Base Excess 12.6 mmol/L; ABG HCO3 38 mmol/L (21-25); ABG Oxygen Saturation 94.4 % (94-97); ABG PCO2 69 mmHg (35-45); ABG PH 7.35 (7.35-7.45); ABG PO2 74 mmHg (83-108); ABG TCO2 40 mmol/L (19-24); Allen Test Performed? Yes
[2020-02-06] MEDS: ALBUTEROL HFA INHALER INHALATION SCH ×4 (07:34→19:14)
--- NOTE | 2020-02-06 08:19 | XR ---
EXAMINATION TYPE: XR chest 1V portable DATE OF EXAM: 02/06/2020 COMPARISON: Prior chest x-ray 02/05/2020 HISTORY: Intubated TECHNIQUE: Single frontal view of the chest is obtained. FINDINGS: Endotracheal tube and NG tube are overlying appropriate positions. Patient is rotated and there is extensive subcutaneous emphysema. Lucency is present along the left heart border, mediastinu m. No evident pneumothorax. Bibasilar increased density persists. Heart size is stable. Interstitium mildly increased. There are overlying artifacts, cardiac leads. IMPRESSION: Correlate for basilar pneumonia versus edema, ARDS. Possible pneumopericardium or pneumo mediastinum is present.
[2020-02-06] MEDS: PIPERACILLIN-TAZOBACTAM 3.375 GM in SODIUM CHLORIDE 0.9% 100 ML IVPB SCH ×2 (08:25→16:29)
[2020-02-06] MEDS: CHLORHEXIDINE GLUCONATE 15 ML CUP MUCOUS MEM SCH ×2 (08:27→20:43)
[2020-02-06] MEDS: LACTULOSE 20 GM/30 ML CUP PO SCH ×2 (08:27→20:43)
[2020-02-06] MEDS: ENOXAPARIN 100 MG/ML SYRINGE SQ SCH ×2 (08:27→20:44)
[2020-02-06] MEDS: ASCORBIC ACID 500 MG TAB OG-TUBE SCH ×2 (08:27→20:44)
[2020-02-06] MEDS: methylPREDNISolone SOD SUCCI 40 MG/ML 1 ML VIAL IV SCH ×2 (08:28→20:43)
[2020-02-06] MEDS: PANTOPRAZOLE 40 MG/10 ML VIAL IVP SCH (08:28)
[2020-02-06] MEDS: ZINC SULFATE 220 MG CAP PO SCH (09:39)
[2020-02-06 11:35] LABS: Ferritin 384.2 ng/mL (22.0-322.0)
[2020-02-06 12:23] LABS: Glucose,Whole Blood 135 mg/dL (75-99)
--- NOTE | 2020-02-06 12:39 | PN ---
PROGRESS NOTE PULMONARY/CRITICAL CARE PROGRESS NOTE: DATE OF SERVICE: 02/06/2020 Critical care time is greater than 30 minutes. This is a 64-year-old male who was admitted way back on January 21. He has a history of acute COVID-19 pneumonia with hypoxemic respiratory failure, requiring intubation and mechanical ventilation. The patient has been doing relatively poorly until a couple days ago, we gave him the monoclonal antibody interleukin-6 receptor called tocilizumab. He got doses on February 01 and February 02. Since that time, his fever has gone down. His inflammatory markers have started to recede. His oxygenation has improved. The patient does have a history of rheumatoid arthritis and has previously been on methotrexate. The patient remains on the mechanical ventilator. He is on the volume assist-control mode rate of 30, tidal volume 450, FiO2 of 45%, PEEP of 15. Blood gases show a PO2 of 74, pCO2 of 69, and pH of 7.35. We likely will not make any changes today. The patient is getting 0.9 at 50 mL an hour, propofol at 75 mcg/kg per minute, fentanyl at 0.5 mcg/kg per hour, Nimbex at 3 mcg/minute and Vital AF at 43 with a goal of 43 mL an hour. The catheter tip that we removed a couple days ago when we did a central line placement was positive for coag-negative staph. The sputum is showing Fiordaliza albicans. The patient is improved in my opinion. In addition, I did have a chance to talk to his daughter today. Her name is Erica Day. The daughter and I spoke for about 15 minutes. I did give her an update. She was pleased to know that he had been doing a bit better. I told her that we should be cautiously optimistic any certainly was not out of the correa and had a long way to go. Finally, the patient does have some subcutaneous emphysema around the neck area which actually has improved. The patient will attempt today on this patient to give him a paralytic holiday. Current vital signs are reviewed. His temperature is 98.4, heart rate 80, respiratory rate 30, blood pressure 91/58 mean 69, saturations are 91%. Appears in no acute distress. Currently sedated and paralyzed. HEENT: Examination is grossly unremarkable. He has an orally placed endotracheal tube and NG tube. NECK: Supple. Subcutaneous emphysema is still present but reduced. No adenopathy, thyromegaly or neck vein distention. CARDIOVASCULAR: Examination reveals regular rhythm and rate. Heart rate 80. S1, S2 normal. No murmur. LUNGS: Reveal diffuse coarse rhonchi. Breath sounds equal. No crackles. No wheezes. ABDOMEN: Soft, bowel sounds are heard. EXTREMITIES Intact. Minimal edema. SKIN: Without rash. NEUROLOGIC: Examination is difficult to assess because he is so heavily sedated and paralyzed. Microbiology is reviewed. Coag-negative staph on the catheter tip that was removed on February 02. No specific treatment needed for that. LABS: Reviewed. White count 7, hemoglobin 10.9, hematocrit 36.3, platelet count 120,000. D- dimer 0.85. Blood gases show a pO2 of 74, pCO2 of 69, pH of 7.35. Sodium 140, potassium 5.3, chloride 104. CO2 of 29. Anion gap is -1, BUN and creatinine were 37 and 0.64, glucose is 141, calcium 8.2, ferritin 384, ALT 60, albumin 2.3. C-reactive protein 21.6 and total protein 4.8. Chest x-ray is done. It shows bibasilar infiltrates. There is some subcutaneous emphysema present. There is also some pneumomediastinum and possibly some pneumopericardium. MEDICATIONS: Reviewed. He is on albuterol inhaler, Artificial Tears, ascorbic acid, chlorhexidine, Nimbex, Lovenox, fentanyl, insulin, lactulose, Solu-Medrol, metoprolol, Narcan, Protonix, Zosyn, potassium replacement, propofol, saline IV, vanc. ASSESSMENT: 1. Acute COVID-19 pneumonia with hypoxemic respiratory failure requiring intubation and mechanical ventilation and failure to wean from mechanical ventilation. 2. Acute respiratory distress syndrome (ARDS), and relatively high concentrations of both oxygen and PEEP. 3. Acute hypercapnic respiratory failure, and a negative inflammatory markers including D-dimer beats. C-reactive protein among other values. 4. History of rheumatoid arthritis, previously maintained on palpation of the trach site. 5. Possible cytokine storm syndrome, status post 2 doses of tocilizumab in February 01 and . PLAN: The patient seems to be a bit more stable. I did have a long conversation with the daughter, Erica Day today. Additional recommendations and suggestions are forthcoming. No major changes in the ventilator today. We do review of try paralytic validate today. The catheter tip did show some coag-negative staph. This is an appropriate sedation and paralytic. He is getting tube feeds at goal. No additional recommendations are made. Prognosis remains guarded, but we do see some slight improvement today as I mentioned to his daughter on the phone that we should be cautiously optimistic. Critical care time greater than 30 minutes. MMODL / IJN: [id number] /
[2020-02-06] MEDS: SODIUM CHLORIDE 0.9% 1,000 ML IV SCH (13:14)
--- NOTE | 2020-02-06 16:55 | P.PN ---
Subjective Progress Note Date: 02/06/20 Principal diagnosis: Covid pneumonia with respiratory failure Patient is 64-year-old male with history of rheumatoid arthritis previously on methotrexate was admitted for acute 19 pneumonia with respiratory failure. Patient remains intubated Objective - Vital Signs Vital signs: Vital Signs Temp 98.4 F 02/06/20 13:00 Pulse 63 02/06/20 15:00 Resp 26 H 02/06/20 15:00 BP 91/58 02/06/20 15:00 Pulse Ox 91 L 02/06/20 15:43 Intake & Output 02/05/20 02/06/20 02/06/20 18:59 06:59 18:59 Intake Total 2484.688 2166.864 1466.259 Output Total 1140 1235 865 Balance 1344.688 931.864 601.259 Weight 98.6 kg 101 kg 101 kg Intake: IV 836 736 577 Normal Saline Pressure 36 36 27 Bag Piperacillin-Tazobactam 3 200 100 100 .375 gm In Sodium Chloride 0.9% 100 ml @ 25 mls/hr IVPB Q8HR [facility] Rx# :[id number] Sodium Chloride 0.9% 1, 600 600 450 000 ml @ 50 mls/hr IV . Q20H [facility] Rx#:[id number] Intake, IV Titration 784.688 695.864 356.259 Amount Cisatracurium 200 mg In 195.858 178.839 Sodium Chloride 0.9% 100 ml @ 1 MCG/KG/MIN 5.58 mls/hr IV .Q24H [facility] Rx#: [id number] Propofol 1,000 mg In 388.83 417.025 256.259 Empty Bag 1 bag @ Titrate IV .Q0M [facility] Rx#: [id number] fentaNYL (PF) 1,000 mcg 200 100 100 In Sodium Chloride 0.9% 80 ml @ 0.5 MCG/KG/HR 4. 65 mls/hr IV .[id number] [facility] Rx#:[id number] Tube Feeding 774 645 533 Other 90 90 Output: Urine 1140 1235 865 Other: Voiding Method Indwelling Catheter Indwelling Catheter Indwelling Catheter ABP, PAP, CO, CI - Last Documented Arterial Blood Pressure 97/55 - Constitutional Constitutional Comment(s): Intubated - Neck Details: Subcutaneous emphysema - Respiratory Respiratory: bilateral: diminished - Cardiovascular Rhythm: regular - Gastrointestinal General gastrointestinal: Present: decreased bowel sounds - Neurologic Neurologic Comment(s): Sedated - Psychiatric Psychiatric Comment(s): Limited - Labs CBC & Chem 7: 02/06/20 04:23 02/06/20 04:23 Labs: Abnormal Lab Results - Last 24 Hours (Table) 02/05/20 02/05/20 02/06/20 Range/Units 17:51 23:19 04:23 RBC 3.75 L (4.30-5.90) m/uL Hgb 10.9 L (13.0-17.5) gm/dL Hct 36.3 L (39.0-53.0) % MCHC 29.9 L (31.0-37.0) g/dL Plt Count 120 L (150-450) k/uL Lymphocytes # 0.9 L (1.0-4.8) k/uL D-Dimer (<0.60) mg/L FEU ABG pCO2 (35-45) mmHg ABG pO2 (83-108) mmHg ABG HCO3 (21-25) mmol/L ABG Total CO2 (19-24) mmol/L Potassium (3.5-5.1) mmol/L Carbon Dioxide (22-30) mmol/L BUN (9-20) mg/dL Creatinine (0.66-1.25) mg/dL Glucose (74-99) mg/dL POC Glucose (mg/dL) 131 H 108 H (75-99) mg/dL Calcium (8.4-10.2) mg/dL Ferritin (22.0-322.0) ng/mL ALT (4-49) U/L C-Reactive Protein (<10.0) mg/L Total Protein (6.3-8.2) g/dL Albumin (3.5-5.0) g/dL 02/06/20 02/06/20 02/06/20 Range/Units 04:23 04:23 05:19 RBC (4.30-5.90) m/uL Hgb (13.0-17.5) gm/dL Hct (39.0-53.0) % MCHC (31.0-37.0) g/dL Plt Count (150-450) k/uL Lymphocytes # (1.0-4.8) k/uL D-Dimer 0.85 H (<0.60) mg/L FEU ABG pCO2 (35-45) mmHg ABG pO2 (83-108) mmHg ABG HCO3 (21-25) mmol/L ABG Total CO2 (19-24) mmol/L Potassium 5.2 H (3.5-5.1) mmol/L Carbon Dioxide 39 H (22-30) mmol/L BUN 37 H (9-20) mg/dL Creatinine 0.64 L (0.66-1.25) mg/dL Glucose 141 H (74-99) mg/dL POC Glucose (mg/dL) 124 H (75-99) mg/dL Calcium 8.2 L (8.4-10.2) mg/dL Ferritin 384.2 H (22.0-322.0) ng/mL ALT 60 H (4-49) U/L C-Reactive Protein 21.6 H (<10.0) mg/L Total Protein 4.8 L (6.3-8.2) g/dL Albumin 2.3 L (3.5-5.0) g/dL 02/06/20 02/06/20 Range/Units 05:40 12:21 RBC (4.30-5.90) m/uL Hgb (13.0-17.5) gm/dL Hct (39.0-53.0) % MCHC (31.0-37.0) g/dL Plt Count (150-450) k/uL Lymphocytes # (1.0-4.8) k/uL D-Dimer (<0.60) mg/L FEU ABG pCO2 69 H (35-45) mmHg ABG pO2 74 L (83-108) mmHg ABG HCO3 38 H (21-25) mmol/L ABG Total CO2 40 H (19-24) mmol/L Potassium (3.5-5.1) mmol/L Carbon Dioxide (22-30) mmol/L BUN (9-20) mg/dL Creatinine (0.66-1.25) mg/dL Glucose (74-99) mg/dL POC Glucose (mg/dL) 135 H (75-99) mg/dL Calcium (8.4-10.2) mg/dL Ferritin (22.0-322.0) ng/mL ALT (4-49) U/L C-Reactive Protein (<10.0) mg/L Total Protein (6.3-8.2) g/dL Albumin (3.5-5.0) g/dL Microbiology - Last 24 Hours (Table) 02/02/20 18:09 Blood Culture - Preliminary Blood No Growth after 72 hours 02/03/20 16:55 Catheter Tip Culture - Final Catheter Tip Coagulase Negative Staph Assessment and Plan (1) Pneumonia due to COVID-19 virus Narrative/Plan: Appreciate pulmonary input patient continues to be understand on Zosyn and vancomycin Current Visit: Yes Status: Acute Code(s): U07.1 - COVID-19; J12.89 - OTHER VIRAL PNEUMONIA SNOMED Code(s): 101837277 (2) Subcutaneous emphysema Current Visit: Yes Status: Acute Code(s): T79.7XXA - TRAUMATIC SUBCUTANEOUS EMPHYSEMA, INITIAL ENCOUNTER SNOMED Code(s): 8320781 (3) Rheumatoid arthritis Narrative/Plan: Status post treatment with tocilizumab January. She was previously on methotrexate Current Visit: Yes Status: Acute Code(s): M06.9 - RHEUMATOID ARTHRITIS, UNSPECIFIED SNOMED Code(s): 95753560 Plan: Continue current treatment with vancomycin, Zosyn, he is on propofol, continue ventilatory support for pulmonary continue tube feeds patient is at goal
[2020-02-06 17:28] LABS: Glucose,Whole Blood 107 mg/dL (75-99)
[2020-02-07 00:06] LABS: Glucose,Whole Blood 131 mg/dL (75-99)
--- NOTE | 2020-02-07 00:08 | PN ---
PROGRESS NOTE DATE OF SERVICE: 02/06/2020 REASON FOR FOLLOWUP: Acute COVID-19 pneumonia. INTERVAL HISTORY: The patient is currently afebrile. The patient is hemodynamically stable. Not on any pressor support. FiO2 is currently at 45%. No significant tenderness. No significant purulent secretions through the ET or any diarrhea reported by the nursing staff. PHYSICAL EXAMINATION: Blood pressure 94/46, pulse of 66, temperature 98.1. He is 91% on 45% FiO2. General description is a middle-aged male intubated on the vent. Respiratory system: Unlabored breathing, decreased breath sounds in the bases. No wheeze. HEART: S1, S2. Regular rate and rhythm. Abdomen soft, no tenderness. LABS: Hemoglobin is 10.8, white count 7.0 with a BUN of 37, creatinine 0.64. DIAGNOSTIC IMPRESSION AND PLAN: 1. Patient with acute respiratory failure which is likely multifactorial in this patient who did have Covid-19 pneumonia. The patient has completed his Plaquenil and zinc therapy, to monitor the patient closely. Currently on empiric Zosyn. 2. Catheter tip culture with a coagulase-negative Staph with concern for possible contamination. Blood cultures will be repeated and if those remain to be negative, no further antibiotic will be needed. Monitor the patient course closely. MMODL / IJN: [id number] /
[2020-02-07] MEDS: INSULIN ASPART (NovoLOG) 100 UNIT/ML VIAL SQ SCH ×4 (00:09→19:03)
[2020-02-07] MEDS: PIPERACILLIN-TAZOBACTAM 3.375 GM in SODIUM CHLORIDE 0.9% 100 ML IVPB SCH ×4 (00:09→23:28)
[2020-02-07] MEDS: ARTIFICIAL TEARS-HYPROMELLOSE DROPS 15 ML BTL BOTH EYES SCH ×6 (00:15→20:22)
[2020-02-07] MEDS: PROPOFOL 1,000 MG in EMPTY BAG 1 BAG IV SCH ×8 (02:15→20:21)
[2020-02-07 04:38] LABS: Basophils % (A) 0 %; Eosinophils # (A) 0.1 k/uL (0-0.7); Eosinophils % (A) 1 %; HCT 36.1 % (39.0-53.0); HGB 10.9 gm/dL (13.0-17.5); Hypochromasia Marked; Lymphocytes # (A) 1.1 k/uL (1.0-4.8); Lymphocytes % (A) 12 %; MCH 29.3 pg (25.0-35.0); MCHC 30.2 g/dL (31.0-37.0); MCV 96.8 fL (80.0-100.0); Mean Platelet Volume 9.3; Monocytes # (A) 0.3 k/uL (0-1.0); Monocytes % (A) 3 %; Neutrophils # (A) 7.8 k/uL (1.3-7.7); Neutrophils % (A) 83 %; Platelet Count 134 k/uL (150-450); RBC 3.73 m/uL (4.30-5.90); RDW 14.5 % (11.5-15.5); WBC 9.4 k/uL (3.8-10.6)
[2020-02-07 05:08] LABS: ALT 72 U/L (4-49); AST 43 U/L (17-59); African American GFR (CKD) >90 (>60 ml/min/1.73 sqM); Albumin 2.3 g/dL (3.5-5.0); Alkaline Phosphatase 78 U/L (38-126); Blood Urea Nitrogen 33 mg/dL (9-20); C Reactive Protein 12.6 mg/L (<10.0); Calcium 8.2 mg/dL (8.4-10.2); Chloride 101 mmol/L (98-107); Glucose 128 mg/dL (74-99); LDH 517 U/L (313-618); Non-African American GFR(CKD) >90 (>60 ml/min/1.73 sqM); Potassium 4.8 mmol/L (3.5-5.1); Sodium 138 mmol/L (137-145); Total Bilirubin 0.4 mg/dL (0.2-1.3); Total Protein 4.7 g/dL (6.3-8.2)
[2020-02-07 05:13] LABS: Anion Gap 0 mmol/L
[2020-02-07 05:26] LABS: Carbon Dioxide 37 mmol/L (22-30)
[2020-02-07 06:03] LABS: Glucose,Whole Blood 117 mg/dL (75-99)
[2020-02-07 06:22] LABS: ABG Base Excess 11.8 mmol/L; ABG HCO3 38 mmol/L (21-25); ABG Oxygen Saturation 94.6 % (94-97); ABG PH 7.31 (7.35-7.45); ABG PO2 79 mmHg (83-108); ABG TCO2 40 mmol/L (19-24); Allen Test Performed? Yes
[2020-02-07 06:25] LABS: ABG PCO2 76 mmHg (35-45)
[2020-02-07] MEDS: fentaNYL (PF) 1,000 MCG in SODIUM CHLORIDE 0.9% 80 ML IV SCH ×3 (06:47→18:32)
--- NOTE | 2020-02-07 07:08 | XR ---
EXAMINATION TYPE: XR chest 1V portable DATE OF EXAM: 02/07/2020 HISTORY: Pneumonia. REFERENCE: Previous study dated 02/06/2020. FINDINGS: The patient is ET tube and NG tube remain in place, unchanged in appearance. There are peripheral infiltrates present bilaterally. There is blunting of both CP angles. I could no t exclude small effusions. Heart size upper limits of normal. IMPRESSION: NO SIGNIFICANT INTERVAL CHANGE IN THE APPEARANCE OF THE CHEST.
[2020-02-07] MEDS: ALBUTEROL HFA INHALER INHALATION SCH ×4 (07:57→20:15)
[2020-02-07] MEDS: ENOXAPARIN 100 MG/ML SYRINGE SQ SCH ×2 (09:37→20:00)
[2020-02-07] MEDS: ASCORBIC ACID 500 MG TAB OG-TUBE SCH ×2 (09:37→20:00)
[2020-02-07] MEDS: CHLORHEXIDINE GLUCONATE 15 ML CUP MUCOUS MEM SCH ×2 (09:37→20:00)
[2020-02-07] MEDS: methylPREDNISolone SOD SUCCI 40 MG/ML 1 ML VIAL IV SCH ×2 (09:38→20:00)
[2020-02-07] MEDS: PANTOPRAZOLE 40 MG/10 ML VIAL IVP SCH (09:38)
[2020-02-07] MEDS: LACTULOSE 20 GM/30 ML CUP PO SCH ×2 (09:38→20:00)
[2020-02-07] MEDS: ZINC SULFATE 220 MG CAP PO SCH (09:41)
[2020-02-07] MEDS: SODIUM CHLORIDE 0.9% 1,000 ML IV SCH (11:50)
[2020-02-07 11:55] LABS: Glucose,Whole Blood 113 mg/dL (75-99)
--- NOTE | 2020-02-07 12:02 | PN ---
PROGRESS NOTE PULMONARY/CRITICAL CARE PROGRESS NOTE: DATE OF SERVICE: 02/07/2020 Critical care time more than 30 minutes. This is a 64-year-old male who was admitted back on January 21. He has a history of acute COVID-19 pneumonia with hypoxemic respiratory failure, requiring intubation and mechanical ventilation. The patient received recently the monoclonal antibody again, interleukin-6 receptor called tocilizumab. He received 2 doses on February 01 and February 02 and since that time, has begun to do a bit better. His inflammatory markers have declined. His fever has improved. His oxygenation has improved. The patient does have a history of long-standing rheumatoid arthritis and was previously on methotrexate. He remains on the volume assist-control mode rate of 30, tidal volume 450, FiO2 of 50%, PEEP of 15. Blood gases show pO2 of 79, pCO2 of 76, and a pH of 7.31. He is getting Vital AF at 30 with a goal of 30, he is on Nimbex at 2 mcg/kg per minute, fentanyl at 1.5 mcg/kg per hours and propofol at 75 mcg/kg per minute. He is also getting saline at 50 mL an hours. He had a pretty uneventful night last night. He did develop some subcutaneous emphysema about the neck. The left-sided triple-lumen was removed. The right femoral triple-lumen was placed. The subcutaneous emphysema is improved. He still has a crunch when palpated. No obvious pneumothorax is seen. Current vital signs are stable and include a temperature of 97.5 heart rate 66, respiratory rate 30, blood pressure 102/53. Saturations are between 90% and 92% on 50% and 15 of PEEP. Appears in no acute distress. Currently sedated and paralyzed. HEENT: Examination is grossly unremarkable. There is an orally placed endotracheal tube and NG tube. NECK: Supple. Subcutaneous emphysema is noted. No adenopathy or thyromegaly. Neck veins are flat. CARDIOVASCULAR: Examination reveals regular rhythm and rate. Heart rate mid 60s. S1, S2 normal. There is no murmur. LUNGS: Reveal coarse bilateral rhonchi. There are some bilateral crackles. No wheezes. Breath sounds equal. ABDOMEN: Soft, bowel sounds are heard. EXTREMITIES: Intact. Minimal edema. SKIN: Without rash. NEUROLOGIC: Examination could not be assessed, as the patient is currently sedated and paralyzed. LABS: Reviewed. White count 9.4, hemoglobin 10.9, hematocrit 36.1, platelet count 134,000. D-dimer is 0.75. That is down and it has been steadily reducing since the patient received the tocilizumab. Blood gases as mentioned show pO2 of 79, pCO2 of 76, and a pH of 7.31. Sodium 138, potassium 4.8, chloride 101, CO2 of 37. Anion gap is 0. BUN and creatinine 33 and 0.66. The comprehensive metabolic profile shows a total bilirubin of 8.2 and ALT of 72, LDH of 517, C-reactive protein of 12.6, and albumin at 2.3. Microbiology is positive for coag-negative staph on the catheter tip that was removed on February 02. A chest x-ray continues to show diffuse bilateral infiltrates. CURRENT MEDICATIONS: Reviewed. He is on albuterol inhaler, Artificial Tears, ascorbic acid, Peridex, Nimbex, Lovenox, fentanyl, insulin, lactulose, Solu-Medrol, metoprolol, Narcan, Protonix, Zosyn, potassium replacement, propofol and zinc. ASSESSMENT: 1. Acute COVID-19 pneumonia with hypoxemic respiratory failure requiring intubation and mechanical ventilation and failure to wean from mechanical ventilation. 2. Acute respiratory distress syndrome (ARDS), requiring relatively high concentrations of both oxygen and PEEP. 3. Acute hypercapnic respiratory failure. 4. History of rheumatoid arthritis, previously maintained on methotrexate as an outpatient. 5. Possible cytokine storm syndrome, status post 2 doses of tocilizumab on February 01 and February 02. PLAN: The patient's inflammatory markers seem to be stabilizing. His fever is better. His oxygenation is improved. I did have a conversation with the daughter yesterday. It was documented in my note yesterday. The patient's lines were recently changed. His subcutaneous emphysema about the neck area is improved. He remains on tube feeds. Today, we will see if we cannot get him off the Nimbex if possible. The blood gases show evidence of mild acidosis. Additional recommendations and suggestions are forthcoming. Prognosis is guarded. Will continue to follow. Critical care time greater than 30 minutes. MMODL / IJN: [id number] /
[2020-02-07 14:29] LABS: Ferritin 269.9 ng/mL (22.0-322.0)
--- NOTE | 2020-02-07 14:39 | P.PN ---
Subjective Progress Note Date: 02/07/20 Principal diagnosis: Cov - 19 pneumonia Patient is 64-year-old male with history of rheumatoid arthritis on methotrexate was admitted on January 21 for acute Covid pneumonia with hypoxic respiratory failure. Patient was started on hydroxychloroquine, Rocephin and doxycycline. Patient was given low dose IV steroids and supplemental oxygen he got progressively more hypoxic attempt was made for proning however this did not give any relief patient was subsequently transferred to the intensive care unit on January 28 and on the he was intubated Patient received interleukin-6 r eceptor tocilizumab. He's continued to require ventilatory support he developed subcutaneous emphysema without evidence of pneumothorax. Objective - Vital Signs Vital signs: Vital Signs Temp 97.5 F L 02/07/20 08:00 Pulse 56 L 02/07/20 11:00 Resp 30 H 02/07/20 11:00 BP 91/58 02/06/20 19:00 Pulse Ox 93 L 02/07/20 11:00 Intake & Output 02/06/20 02/07/20 02/07/20 18:59 06:59 18:59 Intake Total 5799.550 3728.154 831.074 Output Total 1105 600 245 Balance 497.033 7121.154 586.074 Weight 101 kg 101.7 kg Intake: IV 736 836 312 Normal Saline Pressure 36 36 12 Bag Piperacillin-Tazobactam 3 100 200 100 .375 gm In Sodium Chloride 0.9% 100 ml @ 25 mls/hr IVPB Q8HR [facility] Rx# :[id number] Sodium Chloride 0.9% 1, 600 600 200 000 ml @ 50 mls/hr IV . Q20H [facility] Rx#:[id number] Intake, IV Titration 636.946 602.154 369.074 Amount Cisatracurium 200 mg In 200 169.074 Sodium Chloride 0.9% 100 ml @ 1 MCG/KG/MIN 5.58 mls/hr IV .Q24H [facility] Rx#: [id number] Propofol 1,000 mg In 336.946 402.154 100 Empty Bag 1 bag @ Titrate IV .Q0M [facility] Rx#: [id number] fentaNYL (PF) 1,000 mcg 100 200 100.000 In Sodium Chloride 0.9% 80 ml @ 0.5 MCG/KG/HR 4. 65 mls/hr IV .[id number] [facility] Rx#:[id number] Tube Feeding 623 450 120 Other 90 30 Output: Urine 1105 600 245 Other: Voiding Method Indwelling Catheter Indwelling Catheter Indwelling Catheter # Voids 1 ABP, PAP, CO, CI - Last Documented Arterial Blood Pressure 87/49 - Constitutional Constitutional Comment(s): Intubated and sedated - EENT EENT Comment(s): Crepitus - Respiratory Respiratory: bilateral: diminished - Cardiovascular Rhythm: regular - Gastrointestinal General gastrointestinal: Present: decreased bowel sounds - Integumentary Integumentary: Present: normal - Psychiatric Psychiatric Comment(s): Limited - Labs CBC & Chem 7: 02/07/20 04:05 02/07/20 04:05 Labs: Abnormal Lab Results - Last 24 Hours (Table) 02/06/20 02/07/20 02/07/20 Range/Units 17:27 00:04 04:05 RBC (4.30-5.90) m/uL Hgb (13.0-17.5) gm/dL Hct (39.0-53.0) % MCHC (31.0-37.0) g/dL Plt Count (150-450) k/uL Neutrophils # (1.3-7.7) k/uL D-Dimer (<0.60) mg/L FEU ABG pH (7.35-7.45) ABG pCO2 (35-45) mmHg ABG pO2 (83-108) mmHg ABG HCO3 (21-25) mmol/L ABG Total CO2 (19-24) mmol/L Carbon Dioxide 37 H (22-30) mmol/L BUN 33 H (9-20) mg/dL Glucose 128 H (74-99) mg/dL POC Glucose (mg/dL) 107 H 131 H (75-99) mg/dL Calcium 8.2 L (8.4-10.2) mg/dL ALT 72 H (4-49) U/L C-Reactive Protein 12.6 H (<10.0) mg/L Total Protein 4.7 L (6.3-8.2) g/dL Albumin 2.3 L (3.5-5.0) g/dL 02/07/20 02/07/20 02/07/20 Range/Units 04:05 04:05 05:52 RBC 3.73 L (4.30-5.90) m/uL Hgb 10.9 L (13.0-17.5) gm/dL Hct 36.1 L (39.0-53.0) % MCHC 30.2 L (31.0-37.0) g/dL Plt Count 134 L (150-450) k/uL Neutrophils # 7.8 H (1.3-7.7) k/uL D-Dimer 0.75 H (<0.60) mg/L FEU ABG pH (7.35-7.45) ABG pCO2 (35-45) mmHg ABG pO2 (83-108) mmHg ABG HCO3 (21-25) mmol/L ABG Total CO2 (19-24) mmol/L Carbon Dioxide (22-30) mmol/L BUN (9-20) mg/dL Glucose (74-99) mg/dL POC Glucose (mg/dL) 117 H (75-99) mg/dL Calcium (8.4-10.2) mg/dL ALT (4-49) U/L C-Reactive Protein (<10.0) mg/L Total Protein (6.3-8.2) g/dL Albumin (3.5-5.0) g/dL 02/07/20 02/07/20 Range/Units 06:20 11:54 RBC (4.30-5.90) m/uL Hgb (13.0-17.5) gm/dL Hct (39.0-53.0) % MCHC (31.0-37.0) g/dL Plt Count (150-450) k/uL Neutrophils # (1.3-7.7) k/uL D-Dimer (<0.60) mg/L FEU ABG pH 7.31 L (7.35-7.45) ABG pCO2 76 H* (35-45) mmHg ABG pO2 79 L (83-108) mmHg ABG HCO3 38 H (21-25) mmol/L ABG Total CO2 40 H (19-24) mmol/L Carbon Dioxide (22-30) mmol/L BUN (9-20) mg/dL Glucose (74-99) mg/dL POC Glucose (mg/dL) 113 H (75-99) mg/dL Calcium (8.4-10.2) mg/dL ALT (4-49) U/L C-Reactive Protein (<10.0) mg/L Total Protein (6.3-8.2) g/dL Albumin (3.5-5.0) g/dL Microbiology - Last 24 Hours (Table) 02/02/20 18:09 Blood Culture - Preliminary Blood No Growth after 96 hours Assessment and Plan (1) Pneumonia due to COVID-19 virus Narrative/Plan: Patient currently receiving albuterol inhaler, steroids, Zosyn and zinc he is completed his dose of Plaquenil Current Visit: Yes Status: Acute Code(s): U07.1 - COVID-19; J12.89 - OTHER VIRAL PNEUMONIA SNOMED Code(s): 741158274 (2) Subcutaneous emphysema Narrative/Plan: No evidence of pneumothorax Current Visit: Yes Status: Acute Code(s): T79.7XXA - TRAUMATIC SUBCUTANEOUS EMPHYSEMA, INITIAL ENCOUNTER SNOMED Code(s): 3765357 (3) Rheumatoid arthritis Narrative/Plan: He wasn't methotrexate as an outpatient has received interleukin-6 receptor Current Visit: Yes Status: Acute Code(s): M06.9 - RHEUMATOID ARTHRITIS, UNSPECIFIED SNOMED Code(s): 01682731 Plan: Respiratory failure appreciated input of infectious disease, pulmonary, continue current treatment
[2020-02-07 18:16] LABS: Glucose,Whole Blood 117 mg/dL (75-99)
--- NOTE | 2020-02-07 22:26 | PN ---
PROGRESS NOTE DATE OF SERVICE: 02/07/2020 REASON FOR FOLLOWUP: Acute COVID-19 pneumonia and possible gram-negative pneumonia. INTERVAL HISTORY: The patient is currently afebrile. The patient is hemodynamically stable. FiO2 is currently 50%. No significant purulent secretions through the ET or any diarrhea has been reported. PHYSICAL EXAMINATION: Blood pressure is 100/82 with a pulse of 53, temperature 97.9. He is 92% on 50% FiO2. General description is a middle-aged male intubated on the vent. Respiratory system: Unlabored breathing, decreased breath sounds in the base, with no wheeze. Heart S1, S2. Regular rate and rhythm. Abdomen soft, no tenderness. LABS: Hemoglobin is 10.8, white count 9.4, BUN of 23, creatinine 0.66. CRP is down to 12 from a high level of 201. DIAGNOSTIC IMPRESSION/PLAN: 1. Patient with acute respiratory failure which is likely multifactorial in this patient who did have a component of acute COVID-19 pneumonia has been completed his Plaquenil, Zithromax and is currently on zinc and respiratory support to continue with concern for possible secondary bacterial pneumonia covered with Zosyn. 2. Positive catheter tip culture with coagulase negative Staph likely contaminant or colonization. Blood culture repeat is so far negative. 3. We will continue to monitor the patient closely and adjust antibiotic further if needed. MMODL / IJN: [id number] /
[2020-02-07 23:46] LABS: Glucose,Whole Blood 125 mg/dL (75-99)
[2020-02-08] MEDS: INSULIN ASPART (NovoLOG) 100 UNIT/ML VIAL SQ SCH ×4 (00:02→18:53)
[2020-02-08] MEDS: ARTIFICIAL TEARS-HYPROMELLOSE DROPS 15 ML BTL BOTH EYES SCH ×2 (00:03→03:02)
[2020-02-08] MEDS: PROPOFOL 1,000 MG in EMPTY BAG 1 BAG IV SCH ×5 (00:51→23:00)
[2020-02-08] MEDS: fentaNYL (PF) 1,000 MCG in SODIUM CHLORIDE 0.9% 80 ML IV SCH ×4 (01:05→20:46)
[2020-02-08] MEDS: SODIUM CHLORIDE 0.9% 1,000 ML IV SCH (04:14)
[2020-02-08 05:09] LABS: Basophils % (A) 0 %; Eosinophils # (A) 0.1 k/uL (0-0.7); Eosinophils % (A) 2 %; HGB 10.7 gm/dL (13.0-17.5); Hypochromasia Slight; Lymphocytes % (A) 14 %; MCH 29.9 pg (25.0-35.0); MCHC 31.4 g/dL (31.0-37.0); MCV 95.3 fL (80.0-100.0); Mean Platelet Volume 9.6; Monocytes # (A) 0.2 k/uL (0-1.0); Monocytes % (A) 3 %; Neutrophils # (A) 5.6 k/uL (1.3-7.7); Neutrophils % (A) 80 %; Platelet Count 122 k/uL (150-450); RBC 3.56 m/uL (4.30-5.90); RDW 15.4 % (11.5-15.5)
[2020-02-08 05:10] LABS: ABG Base Excess 12.6 mmol/L; ABG HCO3 37 mmol/L (21-25); ABG Oxygen Saturation 92.6 % (94-97); ABG PCO2 53 mmHg (35-45); ABG PH 7.45 (7.35-7.45); ABG PO2 62 mmHg (83-108); ABG TCO2 38 mmol/L (19-24); Allen Test Performed? Yes
[2020-02-08 05:31] LABS: ALT 149 U/L (4-49); AST 85 U/L (17-59); African American GFR (CKD) >90 (>60 ml/min/1.73 sqM); Albumin 2.4 g/dL (3.5-5.0); Alkaline Phosphatase 79 U/L (38-126); Anion Gap -3 mmol/L; Blood Urea Nitrogen 29 mg/dL (9-20); C Reactive Protein 6.2 mg/L (<10.0); Calcium 8.1 mg/dL (8.4-10.2); Carbon Dioxide 37 mmol/L (22-30); Chloride 103 mmol/L (98-107); Glucose 120 mg/dL (74-99); LDH 535 U/L (313-618); Non-African American GFR(CKD) >90 (>60 ml/min/1.73 sqM); Potassium 4.3 mmol/L (3.5-5.1); Sodium 137 mmol/L (137-145); Total Bilirubin 0.5 mg/dL (0.2-1.3); Total Protein 4.6 g/dL (6.3-8.2)
[2020-02-08 05:32] LABS: Glucose,Whole Blood 120 mg/dL (75-99)
--- NOTE | 2020-02-08 06:32 | XR ---
EXAMINATION TYPE: XR chest 1V portable DATE OF EXAM: 02/08/2020 HISTORY: Pneumonia. REFERENCE: Previous study dated 02/07/2020. FINDINGS: The patient is ET tube and NG tube remain in place, unchanged in appearance. There continue to be patchy bilateral infiltrates. These may have improved slightly. There is subcuta neous emphysema in the neck bilaterally. This was present previously. Definite pneumomediastinum is n ot seen at this time. I suspect a small left effusion. IMPRESSION: 1. CONTINUING LEFT BASILAR AIRSPACE DISEASE. 2. IMPROVED AERATION, RIGHT LUNG BASE. 3. SUBCUTANEOUS EMPHYSEMA ABOUT THE NECK BILATERALLY.
[2020-02-08] MEDS: ALBUTEROL HFA INHALER INHALATION SCH ×4 (08:00→20:18)
[2020-02-08] MEDS: LACTULOSE 20 GM/30 ML CUP PO SCH ×2 (09:07→21:45)
[2020-02-08] MEDS: PIPERACILLIN-TAZOBACTAM 3.375 GM in SODIUM CHLORIDE 0.9% 100 ML IVPB SCH ×2 (09:07→15:11)
[2020-02-08] MEDS: ASCORBIC ACID 500 MG TAB OG-TUBE SCH ×2 (09:07→21:45)
[2020-02-08] MEDS: CHLORHEXIDINE GLUCONATE 15 ML CUP MUCOUS MEM SCH ×2 (09:07→21:45)
[2020-02-08] MEDS: ENOXAPARIN 100 MG/ML SYRINGE SQ SCH ×2 (09:07→21:45)
[2020-02-08] MEDS: methylPREDNISolone SOD SUCCI 40 MG/ML 1 ML VIAL IV SCH ×2 (09:08→21:45)
[2020-02-08] MEDS: ZINC SULFATE 220 MG CAP PO SCH (09:08)
[2020-02-08] MEDS: PANTOPRAZOLE 40 MG/10 ML VIAL IVP SCH (09:08)
--- NOTE | 2020-02-08 11:24 | PN ---
PROGRESS NOTE PULMONARY/CRITICAL CARE PROGRESS NOTE: DATE OF SERVICE: 02/08/2020 Critical care time greater than 30 minutes. This is a 64-year-old male who was admitted back on January 21. He has a history of acute COVID-19 pneumonia with hypoxemic respiratory failure, requiring intubation and mechanical ventilation. The patient remains on the ventilator. He did receive 2 doses of tocilizumab back on February 01 and , and subsequent to that, his clinical situation and inflammatory markers seem to have improved. Anyway, the patient does have a history of long-standing rheumatoid arthritis, most previously on methotrexate for that. Currently, he is on the volume assist-control mode rate of 30, tidal volume 450 FiO2 of 50%, PEEP of 15. Currently his gases show pO2 of 62, pCO2 of 53 and a pH of 7.45. The patient is on saline at 50 mL an hour, propofol at 70 mics/kg per minute, fentanyl at 1.5 mcg/kg per hour and Vital AF with a rate of 30 and a goal of 30. The patient will have a daily interruption of sedation. Probably not quite yet ready to be weaned given his higher PEEP values. The patient also has developed some subcutaneous emphysema around the neck area which has improved on a daily basis. Lines are up-to-date. PHYSICAL EXAMINATION: Current vital signs good temperature 98.1, heart rate 56, respiratory rate is 30, blood pressure 100/51, saturations are between 90 and 92%. Appears in no acute distress. HEENT: Examination is grossly unremarkable. There is an orally placed endotracheal tube and NG tube. NECK: Supple. Full range of motion. No adenopathy or thyromegaly. Neck veins are flat. There is obvious subcutaneous emphysema about the neck area bilaterally and shoulders. CARDIOVASCULAR: Examination reveals regular rhythm rate. Heart rate about 60 beats per minute. S1, S2 normal. Heart sounds are distant. LUNGS: Reveal diffuse coarse rhonchi. Breath sounds equal. ABDOMEN: Soft. Bowel sounds are heard. EXTREMITIES are intact. Minimal edema. SKIN: Without rash. NEUROLOGIC: Examination could not be assessed because the patient is currently heavily sedated. LAB DATA: Reviewed. White count 7, hemoglobin 10.7, hematocrit 34, platelet count 122,000. D- dimer 0.9. Blood gases have been noted. Sodium 137, potassium 4.3, chloride 103, CO2 of 37. Anion gap is 0. BUN and creatinine were 29 and 0.54. Glucose 120, calcium 8.1, ALT 149, AST 85, LDH 535. C-reactive protein 6.2. D-dimer was 0.9. Microbiology is showing some coag-negative staph on the catheter tips that were removed on February 02. A chest x-ray done on February 07 shows continuing bibasilar left greater than right airspace disease. Right lung aeration is improved. There is subcutaneous emphysema about the neck bilaterally. CURRENT MEDICATIONS: Reviewed. He is on albuterol inhaler, ascorbic acid, Peridex, Lovenox, fentanyl, insulin, lactulose, Solu-Medrol, metoprolol, Narcan, Protonix, Zosyn, potassium protocol, propofol, zinc, saline IV. ASSESSMENT: 1. Acute COVID-19 pneumonia with hypoxemic respiratory failure requiring intubation and mechanical ventilation, and failure to wean from mechanical ventilation. 2. Acute respiratory distress syndrome (ARDS), requiring relatively high concentration of both oxygen and PEEP, somewhat improved. 3. Acute hypercapnic respiratory failure. 4. History of rheumatoid arthritis, previously maintained on methotrexate as an outpatient. 5. Probable cytokine storm syndrome, status post 2 doses of tocilizumab on February 01 and February 02. 6. Subcutaneous emphysema about the neck and shoulders, without obvious pneumothorax. PLAN: The patient's overall clinical condition continues to improve. Oxygenation is borderline. Subcutaneous emphysema about the neck bilaterally is still noted. The patient's inflammatory markers have improved. The patient was able to be weaned off the Nimbex. We will attempt a daily interruption of sedation. Likely the patient is not ready for spontaneous breathing trial. We will continue to follow. Prognosis is guarded. Medications are reviewed. Lines are up-to-date. Critical care time greater than 30 minutes. MMODL / IJN: [id number] /
[2020-02-08 12:00] LABS: Glucose,Whole Blood 119 mg/dL (75-99)
--- NOTE | 2020-02-08 15:53 | P.PN ---
Subjective Progress Note Date: 02/08/20 Principal diagnosis: Covid 10 pneumonia Patient is a 64-year-old male with a history of rheumatoid arthritis on methotrexate, who was admitted on January 21 for acute cough with pneumonia with hypoxic respiratory failure. Patient was started on hydroxychloroquine, Rocephin, doxycycline. Patient was started on IV steroids, supplemental oxygen he was initially on 6 L of oxygen however he got progressively worse requiring 15 L high flow oxygen. There was an attempted proning however patient continued to do clinically deteriorate and was consult that he was transferred to the intensive care unit on January 28. Patient was then intubated and 29 of January on continues to be intubated to date. General his hospitalization patient developed some subcutaneous emphysema around the neck which has continued to improve without evidence of thorax. He has received interleukin6 receptor tocilizumab on the and 02 of February. Objective - Vital Signs Vital signs: Vital Signs Temp 98.2 F 02/08/20 12:00 Pulse 56 L 02/08/20 14:00 Resp 30 H 02/08/20 14:00 BP 91/58 02/06/20 19:00 Pulse Ox 92 L 02/08/20 14:00 Intake & Output 02/07/20 02/08/20 02/08/20 18:59 06:59 18:59 Intake Total 1926.658 6244.180 496.77 Output Total 795 675 250 Balance 0968.926 0164.180 246.77 Weight 102.8 kg Intake: IV 848 736 265 Normal Saline Pressure 48 36 15 Bag Piperacillin-Tazobactam 3 200 100 .375 gm In Sodium Chloride 0.9% 100 ml @ 25 mls/hr IVPB Q8HR [facility] Rx# :[id number] Sodium Chloride 0.9% 1, 600 600 250 000 ml @ 50 mls/hr IV . Q20H [facility] Rx#:[id number] Intake, IV Titration 569.074 520.180 51.77 Amount Cisatracurium 200 mg In 169.074 Sodium Chloride 0.9% 100 ml @ 1 MCG/KG/MIN 5.58 mls/hr IV .Q24H [facility] Rx#: [id number] Propofol 1,000 mg In 200 Empty Bag 1 bag @ Titrate IV .Q0M [facility] Rx#: [id number] Propofol 1,000 mg In 320.180 Empty Bag 1 bag @ Titrate IV .Q0M [facility] Rx#: [id number] fentaNYL (PF) 1,000 mcg 200.000 200 51.77 In Sodium Chloride 0.9% 80 ml @ 0.5 MCG/KG/HR 4. 65 mls/hr IV .[id number] [facility] Rx#:[id number] Tube Feeding 360 430 150 Other 90 90 30 Output: Urine 795 675 250 Other: Voiding Method Indwelling Catheter Indwelling Catheter Indwelling Catheter ABP, PAP, CO, CI - Last Documented Arterial Blood Pressure 105/56 - Constitutional Constitutional Comment(s): Intubated, General appearance: Present: no acute distress - Neck Details: slight crepitus - Respiratory Respiratory: bilateral: diminished - Cardiovascular Rhythm: regular - Gastrointestinal General gastrointestinal: Present: decreased bowel sounds - Neurologic Neurologic Comment(s): sedated - Psychiatric Psychiatric Comment(s): limited - Labs CBC & Chem 7: 02/08/20 04:42 02/08/20 04:42 Labs: Abnormal Lab Results - Last 24 Hours (Table) 02/04/20 02/07/20 02/07/20 Range/Units 04:00 18:14 23:44 RBC (4.30-5.90) m/uL Hgb (13.0-17.5) gm/dL Hct (39.0-53.0) % Plt Count (150-450) k/uL D-Dimer (<0.60) mg/L FEU ABG pCO2 (35-45) mmHg ABG pO2 (83-108) mmHg ABG HCO3 (21-25) mmol/L ABG Total CO2 (19-24) mmol/L ABG O2 Saturation (94-97) % Carbon Dioxide (22-30) mmol/L BUN (9-20) mg/dL Creatinine (0.66-1.25) mg/dL Glucose (74-99) mg/dL POC Glucose (mg/dL) 117 H 125 H (75-99) mg/dL Calcium (8.4-10.2) mg/dL AST (17-59) U/L ALT (4-49) U/L Total Protein (6.3-8.2) g/dL Albumin (3.5-5.0) g/dL Interleukin 6 15 H (<=5) pg/mL 02/08/20 02/08/20 02/08/20 Range/Units 04:42 04:42 05:07 RBC 3.56 L (4.30-5.90) m/uL Hgb 10.7 L (13.0-17.5) gm/dL Hct 34.0 L (39.0-53.0) % Plt Count 122 L (150-450) k/uL D-Dimer (<0.60) mg/L FEU ABG pCO2 53 H (35-45) mmHg ABG pO2 62 L (83-108) mmHg ABG HCO3 37 H (21-25) mmol/L ABG Total CO2 38 H (19-24) mmol/L ABG O2 Saturation 92.6 L (94-97) % Carbon Dioxide 37 H (22-30) mmol/L BUN 29 H (9-20) mg/dL Creatinine 0.54 L (0.66-1.25) mg/dL Glucose 120 H (74-99) mg/dL POC Glucose (mg/dL) (75-99) mg/dL Calcium 8.1 L (8.4-10.2) mg/dL AST 85 H (17-59) U/L ALT 149 H (4-49) U/L Total Protein 4.6 L (6.3-8.2) g/dL Albumin 2.4 L (3.5-5.0) g/dL Interleukin 6 (<=5) pg/mL 02/08/20 02/08/20 02/08/20 Range/Units 05:30 08:50 11:58 RBC (4.30-5.90) m/uL Hgb (13.0-17.5) gm/dL Hct (39.0-53.0) % Plt Count (150-450) k/uL D-Dimer 0.90 H (<0.60) mg/L FEU ABG pCO2 (35-45) mmHg ABG pO2 (83-108) mmHg ABG HCO3 (21-25) mmol/L ABG Total CO2 (19-24) mmol/L ABG O2 Saturation (94-97) % Carbon Dioxide (22-30) mmol/L BUN (9-20) mg/dL Creatinine (0.66-1.25) mg/dL Glucose (74-99) mg/dL POC Glucose (mg/dL) 120 H 119 H (75-99) mg/dL Calcium (8.4-10.2) mg/dL AST (17-59) U/L ALT (4-49) U/L Total Protein (6.3-8.2) g/dL Albumin (3.5-5.0) g/dL Interleukin 6 (<=5) pg/mL Microbiology - Last 24 Hours (Table) 02/02/20 18:09 Blood Culture - Preliminary Blood No Growth after 120 hours Assessment and Plan (1) Pneumonia due to COVID-19 virus Narrative/Plan: Pneumonia with hypoxic respiratory failure, ARDS has completed , Plaquenil Zithromax. Patient is on Zosyn for secondary bacterial pneumona, Catheter tip with coag negatvie staph, Blood cultures negative to datre putum with yudy Current Visit: Yes Status: Acute Code(s): U07.1 - COVID-19; J12.89 - OTHER VIRAL PNEUMONIA SNOMED Code(s): 485284512 (2) Subcutaneous emphysema Narrative/Plan: improving Current Visit: Yes Status: Acute Code(s): T79.7XXA - TRAUMATIC SUBCUTANEOUS EMPHYSEMA, INITIAL ENCOUNTER SNOMED Code(s): 8495071 (3) Rheumatoid arthritis Narrative/Plan: with possible cytokine storm received 2 doses of tocilizumab ., patient was on methotrexate as an outpatient Current Visit: Yes Status: Acute Code(s): M06.9 - RHEUMATOID ARTHRITIS, UNSPECIFIED SNOMED Code(s): 78242603 Plan: Appreciate the critical care and infectious disease input, continue current supportive care, patient continues to be critically ill
[2020-02-09 00:05] LABS: Glucose,Whole Blood 107 mg/dL (75-99)
[2020-02-09] MEDS: INSULIN ASPART (NovoLOG) 100 UNIT/ML VIAL SQ SCH ×4 (00:14→19:09)
[2020-02-09] MEDS: PIPERACILLIN-TAZOBACTAM 3.375 GM in SODIUM CHLORIDE 0.9% 100 ML IVPB SCH ×4 (00:16→23:59)
--- NOTE | 2020-02-09 01:07 | PN ---
PROGRESS NOTE DATE OF SERVICE: 02/08/2020 REASON FOR FOLLOWUP: Pneumonia. INTERVAL HISTORY: Patient is currently afebrile. The patient is hemodynamically stable not on pressor support. FiO2 is currently 50%. Tolerating his tube feeds. No significant diarrhea or any change in clinical condition reported. PHYSICAL EXAMINATION: Blood pressure 98/50 with a pulse of 55, temperature 97.7. He is 91% on 50% FiO2. General description is a middle-aged male intubated on the vent. RESPIRATORY SYSTEM: Unlabored breathing, decreased breath sounds at the bases. No wheeze. HEART: S1, S2. Regular rate and rhythm. ABDOMEN: Soft, no tenderness. LABS: Hemoglobin is 10.7, white count 7.0, BUN of 29, creatinine 0.54. DIAGNOSTIC IMPRESSION AND PLAN: 1. Patient with acute respiratory failure which is likely multifactorial with COVID-19 pneumonia where the patient completed his Plaquenil and therapy currently. Zosyn was considered for possible aspiration pneumonitis. 2. The patient with catheter tip culture positive for colonized Staph. Blood cultures have been negative so far. No need for vancomycin at this point. MMODL / IJN: [id number] /
[2020-02-09] MEDS: fentaNYL (PF) 1,000 MCG in SODIUM CHLORIDE 0.9% 80 ML IV SCH (01:28)
[2020-02-09] MEDS: PROPOFOL 1,000 MG in EMPTY BAG 1 BAG IV SCH ×4 (01:30→21:03)
[2020-02-09] MEDS ORDERED: fentaNYL (PF) 2,500 MCG in SODIUM CHLORIDE 0.9% 200 ML IV SCH (01:58)
[2020-02-09 05:08] LABS: Anisocytosis Slight; Basophils % (A) 0 %; Eosinophils # (A) 0.1 k/uL (0-0.7); Eosinophils % (A) 2 %; HCT 34.6 % (39.0-53.0); HGB 10.8 gm/dL (13.0-17.5); Lymphocytes # (A) 0.9 k/uL (1.0-4.8); Lymphocytes % (A) 12 %; MCH 29.7 pg (25.0-35.0); MCHC 31.3 g/dL (31.0-37.0); MCV 94.9 fL (80.0-100.0); Mean Platelet Volume 9.6; Monocytes # (A) 0.2 k/uL (0-1.0); Monocytes % (A) 2 %; Neutrophils % (A) 83 %; Platelet Count 141 k/uL (150-450); RBC 3.64 m/uL (4.30-5.90); RDW 16.4 % (11.5-15.5); WBC 7.2 k/uL (3.8-10.6)
[2020-02-09 05:20] LABS: African American GFR (CKD) >90 (>60 ml/min/1.73 sqM); Anion Gap -2 mmol/L; Blood Urea Nitrogen 25 mg/dL (9-20); C Reactive Protein 5.3 mg/L (<10.0); Calcium 7.9 mg/dL (8.4-10.2); Carbon Dioxide 36 mmol/L (22-30); Chloride 102 mmol/L (98-107); Glucose 112 mg/dL (74-99); LDH 653 U/L (313-618); Non-African American GFR(CKD) >90 (>60 ml/min/1.73 sqM); Potassium 4.3 mmol/L (3.5-5.1); Sodium 136 mmol/L (137-145)
[2020-02-09 05:29] LABS: ABG Base Excess 8.7 mmol/L; ABG HCO3 34 mmol/L (21-25); ABG Oxygen Saturation 95.5 % (94-97); ABG PCO2 55 mmHg (35-45); ABG PO2 80 mmHg (83-108); ABG TCO2 35 mmol/L (19-24)
[2020-02-09 05:31] LABS: Allen Test Performed? no
[2020-02-09 06:02] LABS: Glucose,Whole Blood 112 mg/dL (75-99)
--- NOTE | 2020-02-09 07:50 | XR ---
EXAMINATION TYPE: XR chest 1V portable DATE OF EXAM: 02/09/2020 COMPARISON: 02/08/2020 HISTORY: SOB, Follow Up FINDINGS: Indwelling tubes and catheters are unchanged. Stable scattered interstitial and alveolar infiltrates. Stable appearance of the cardio-mediastinal structures at this time. Subcutaneous emphysema about the neck unchanged. IMPRESSION: 1. Stable portable chest. Clinical correlation and follow up until resolution is recommended.
[2020-02-09] MEDS: ALBUTEROL HFA INHALER INHALATION SCH ×4 (08:18→19:08)
[2020-02-09] MEDS: SODIUM CHLORIDE 0.9% 1,000 ML IV SCH (08:38)
[2020-02-09] MEDS: ASCORBIC ACID 500 MG TAB OG-TUBE SCH ×2 (08:39→21:06)
[2020-02-09] MEDS: CHLORHEXIDINE GLUCONATE 15 ML CUP MUCOUS MEM SCH ×2 (08:39→21:04)
[2020-02-09] MEDS: LACTULOSE 20 GM/30 ML CUP PO SCH ×2 (08:39→21:06)
[2020-02-09] MEDS: ZINC SULFATE 220 MG CAP PO SCH (08:39)
[2020-02-09] MEDS: FUROSEMIDE 10 MG/ML 4 ML VIAL IV SCH ×2 (08:40→21:04)
[2020-02-09] MEDS: PANTOPRAZOLE 40 MG/10 ML VIAL IVP SCH (08:40)
[2020-02-09] MEDS: methylPREDNISolone SOD SUCCI 40 MG/ML 1 ML VIAL IV SCH ×2 (08:40→21:04)
[2020-02-09] MEDS: ENOXAPARIN 100 MG/ML SYRINGE SQ SCH (09:40)
[2020-02-09] MEDS: fentaNYL (PF) 2,500 MCG in SODIUM CHLORIDE 0.9% 200 ML IV SCH (09:58)
--- NOTE | 2020-02-09 10:48 | P.PN ---
Subjective Progress Note Date: 02/09/20 This is a 64-year-old male patient with history of rheumatoid arthritis maintained on methotrexate on outpatient basis was hospitalized for acute Covid 19 pneumonia. The patient was originally admitted to the hospital on 01/22/2020, and back then I was involved in his care and I saw him in consultation as the patient was becoming progressively more hypoxemic. He ultimately required intubation mechanical ventilation. The patient developed worsening in pneumonia and subsequent ARDS related to Covid 19 infection. He was intubated on 01/30/2020 and his been intubated since. During the course of his treatment, the patient was maintained on mechanical ventilator sedated she is with a combination of Plaquenil and systemic steroids and subsequently the patient also received 2 doses of tocilizumab on 02/01 on 02/03/2020.. The patient has been kept on mechanical ventilator on assist control mode at the rate of 30 with a tidal volume of 450 and FiO2 of 50% with a PEEP of 15. He has required a combination of propofol and fentanyl for sedation and propofol is running at 60 mcg/kg per minute and fentanyl is running at 1.5 mcg/kg/h. His chest x-ray continues to show left basilar airspace disease although there has been some improvement in aeration in the right lung. There is still evidence of subcutaneous emphysema in his neck area bilaterally. ET tube remains in good location. As mentioned earlier, the patient completed Plaquenil and he remains on vitamin C and zinc sulfate. He remains on IV Solu-Medrol 40 mg every 8 hours and the patient is also on empiric antibiotic coverage with IV Zosyn. His sputum is shown Fiordaliza albicans. His overall inflammatory markers showed a d- dimer of 0.9 which has gradually dropped from as high as 2.09 and the patient has been on Lovenox 100 mg subcu every 12 hours. The patient has also demonstrated a high LDH which has remained high and the CRP and the ferritin have gradually improved during the course of the treatment. His interleukin-6 level was 15 on 02/04/2020. On today's evaluation of 02/09/2020, the patient remains sedated with propofol at 60 g per KG per minute and the patient is also on fentanyl. The patient is on no paralytics. He is on assist control mode with a PEEP of 15 and a tidal volume of 450 and FiO2 of 50% with a rate of 30. The blood gases from today showed a pH of 7.4 with a pCO2 55 and a pO2 of 80. The chest x-ray findings are essentially stable and unchanged with diffuse bilateral pulmonary interstitial and alveolar infiltrates. The patient has developed significant amount of fluid overload. His fluid balance has been extensively negative in the order of 2.1 L on a daily basis at least and he has developed significant edema in lower extremities. His weight is up 204 kg which is 11 kg higher compared to his admission day. Objective - Vital Signs Vital signs: Vital Signs Temp 98.4 F 02/09/20 04:00 Pulse 50 L 02/09/20 06:00 Resp 26 H 02/09/20 06:00 BP 91/58 02/06/20 19:00 Pulse Ox 93 L 02/09/20 06:00 Intake & Output 02/08/20 02/08/20 02/09/20 06:59 18:59 06:59 Intake Total 0358.690 4264.00 1524.034 Output Total 675 610 625 Balance 1101.180 576.00 899.034 Weight 102.8 kg 104.6 kg Intake: IV 736 636 583 Normal Saline Pressure 36 36 33 Bag Piperacillin-Tazobactam 3 100 100 .375 gm In Sodium Chloride 0.9% 100 ml @ 25 mls/hr IVPB Q8HR [facility] Rx# :[id number] Sodium Chloride 0.9% 1, 600 600 450 000 ml @ 50 mls/hr IV . Q20H [facility] Rx#:[id number] Intake, IV Titration 520.180 100.00 521.034 Amount Propofol 1,000 mg In 320.180 333.459 Empty Bag 1 bag @ Titrate IV .Q0M [facility] Rx#: [id number] fentaNYL (PF) 1,000 mcg 200 100.00 187.575 In Sodium Chloride 0.9% 80 ml @ 0.5 MCG/KG/HR 4. 65 mls/hr IV .[id number] [facility] Rx#:[id number] Tube Feeding 430 360 330 Other 90 90 90 Output: Urine 675 610 625 Other: Voiding Method Indwelling Catheter Indwelling Catheter Indwelling Catheter ABP, PAP, CO, CI - Last Documented Arterial Blood Pressure 99/46 - Exam GENERAL EXAM: Intubated, sedated, orogastric and orotracheal tube are both in place. HEAD: Normocephalic. EYES: Sluggish reaction of pupils, equal size. NOSE: Clear with pink turbinates. THROAT: Oral endotracheal and gastric tube secured in place. No erythema or exudates. NECK: No masses, no JVD. CHEST: No chest wall deformity. LUNGS: Equal air entry with few scattered rhonchi, crackles in the posterior bases. CVS: S1 and S2 normal with no audible murmur, regular rhythm. ABDOMEN: No hepatosplenomegaly, normal bowel sounds, no guarding or rigidity. SPINE: No scoliosis or deformity SKIN: No rashes CENTRAL NERVOUS SYSTEM: Sedated , and hematocrit neurologically ventilation cannot be done as the patient sedated for now EXTREMITIES: There is significant amount of peripheral edema in all 4 extremities. No clubbing, no cyanosis. Peripheral pulses are intact. - Labs CBC & Chem 7: 02/09/20 04:20 02/09/20 04:20 Labs: Abnormal Lab Results - Last 24 Hours (Table) 02/08/20 02/08/20 02/09/20 Range/Units 08:50 11:58 00:03 RBC (4.30-5.90) m/uL Hgb (13.0-17.5) gm/dL Hct (39.0-53.0) % RDW (11.5-15.5) % Plt Count (150-450) k/uL Lymphocytes # (1.0-4.8) k/uL D-Dimer 0.90 H (<0.60) mg/L FEU ABG pCO2 (35-45) mmHg ABG pO2 (83-108) mmHg ABG HCO3 (21-25) mmol/L ABG Total CO2 (19-24) mmol/L Sodium (137-145) mmol/L Carbon Dioxide (22-30) mmol/L BUN (9-20) mg/dL Creatinine (0.66-1.25) mg/dL Glucose (74-99) mg/dL POC Glucose (mg/dL) 119 H 107 H (75-99) mg/dL Calcium (8.4-10.2) mg/dL Lactate Dehydrogenase (313-618) U/L 02/09/20 02/09/20 02/09/20 Range/Units 04: 04:20 05:25 RBC 3.64 L (4.30-5.90) m/uL Hgb 10.8 L (13.0-17.5) gm/dL Hct 34.6 L (39.0-53.0) % RDW 16.4 H (11.5-15.5) % Plt Count 141 L (150-450) k/uL Lymphocytes # 0.9 L (1.0-4.8) k/uL D-Dimer (<0.60) mg/L FEU ABG pCO2 55 H (35-45) mmHg ABG pO2 80 L (83-108) mmHg ABG HCO3 34 H (21-25) mmol/L ABG Total CO2 35 H (19-24) mmol/L Sodium 136 L (137-145) mmol/L Carbon Dioxide 36 H (22-30) mmol/L BUN 25 H (9-20) mg/dL Creatinine 0.53 L (0.66-1.25) mg/dL Glucose 112 H (74-99) mg/dL POC Glucose (mg/dL) (75-99) mg/dL Calcium 7.9 L (8.4-10.2) mg/dL Lactate Dehydrogenase 653 H (313-618) U/L 02/09/20 Range/Units 06:01 RBC (4.30-5.90) m/uL Hgb (13.0-17.5) gm/dL Hct (39.0-53.0) % RDW (11.5-15.5) % Plt Count (150-450) k/uL Lymphocytes # (1.0-4.8) k/uL D-Dimer (<0.60) mg/L FEU ABG pCO2 (35-45) mmHg ABG pO2 (83-108) mmHg ABG HCO3 (21-25) mmol/L ABG Total CO2 (19-24) mmol/L Sodium (137-145) mmol/L Carbon Dioxide (22-30) mmol/L BUN (9-20) mg/dL Creatinine (0.66-1.25) mg/dL Glucose (74-99) mg/dL POC Glucose (mg/dL) 112 H (75-99) mg/dL Calcium (8.4-10.2) mg/dL Lactate Dehydrogenase (313-618) U/L Microbiology - Last 24 Hours (Table) 02/02/20 18:09 Blood Culture - Final Blood No Growth after 144 hours Assessment and Plan Plan: 1 acute bilateral Covid 19 pneumonia . This is a extensive pneumonia and the patient was been immunosuppressed on methotrexate for rheumatoid arthritis. this patient has been intubated on a mechanical ventilator since01/30/2020 and a chest x-ray still showing diffuse bilateral pulmonary infiltras more so on the right upper lobe. Continues to be sedated. He completed Plaquenil. He received Actemra , [id number] therapy, and the patient continues to systemic steroids. D-dimer was elevated and the patient was placed on Lovenox. LDH remains elevated. CRP and ferritin levels have improved. D-dimer also has improved. D-dimer is down to 0.9 as the patient is receiving therapeutic doses of Lovenox. 2 acute hypoxic respiratory failure secondary to above 3 episodic fever secondary to above, Recovered 4 diarrhea due to GI manifestation of Covid 19 infection, improved 6 lymphopenia secondary to Covid 19 infection, improved 7 rheumatoid arthritis maintained on methotrexate on outpatient basis as such the patient has been chronically immunosuppressed. 8 fluid overload Plan Start the patient on Lasix 40 mg every 12 hours Dropped IV fluids to KVO Drop the Lovenox dose to prophylactic dose of 40 mg subcu every 24 hours and the d-dimer is improved Continued IV Solu-Medrol Dropped repeat down to 8 and later on down to 6 and titrate the FiO2 up to maintain a saturation above 90%. His plateau static pressures around 27 with a PA pressure of 32. Continue the supportive care. Empiric antibiotic coverage with IV Zosyn. No clear infection with bacteria Condition is critical we'll continue to follow make further recommendations based on his progress. This is a critically care evaluation that was done and morning 30 minutes. Time with Patient: Greater than 30
[2020-02-09 11:17] LABS: Glucose,Whole Blood 113 mg/dL (75-99)
--- NOTE | 2020-02-09 14:01 | P.PN ---
Subjective Progress Note Date: 02/09/20 Principal diagnosis: COVID 19 64-year-old male was admitted for acute hypoxic respiratory failure secondary to COVID 19 diagnosis. He was started on hydroxychloroquine, Rocephin and doxycycline along with albuterol inhaler and placed on droplet precautions. He was started on low-dose IV steroids and given supplemental O2 maintain maintain O2 saturation greater than 92%. He was initially on 6 L nasal cannula which progressively increased to 15 L high flow. Awake proning was attempted without much relief. Patient continued to deteriorate and pulmonology was consulted. Pulmonology recommended transfer to ICU for closer monitoring on 01/29/2020. He was intubated on 01/30/2020 overnight. He received 2 doses of Tocolizumab on February 01 and February 02. He continues to be intubated. Patient was seen and examined. He continues to be intubated. Rate is at 30. Tidal volume 450. FiO2 50 %. PEEP is at 8. Patient was started on Lasix today for significant lower extremity edema. Per RN, patient has not had a bowel movement in 2 weeks despite being on lactulose. Objective - Vital Signs Vital signs: Vital Signs Temp 98.2 F 02/09/20 12:00 Pulse 63 02/09/20 13:00 Resp 30 H 02/09/20 13:00 BP 91/58 02/06/20 19:00 Pulse Ox 92 L 02/09/20 13:00 Intake & Output 02/08/20 02/09/20 02/09/20 18:59 06:59 18:59 Intake Total 1186.00 1607.034 628 Output Total 409 156 9623 Balance 576.00 907.034 -1947 Weight 104.6 kg Intake: IV 636 636 418 Normal Saline Pressure 36 36 18 Bag Piperacillin-Tazobactam 3 100 100 .375 gm In Sodium Chloride 0.9% 100 ml @ 25 mls/hr IVPB Q8HR [facility] Rx# :[id number] Sodium Chloride 0.9% 1, 600 500 300 000 ml @ 50 mls/hr IV . Q20H [facility] Rx#:[id number] Intake, IV Titration 100.00 521.034 Amount Propofol 1,000 mg In 333.459 Empty Bag 1 bag @ Titrate IV .Q0M [facility] Rx#: [id number] fentaNYL (PF) 1,000 mcg 100.00 187.575 In Sodium Chloride 0.9% 80 ml @ 0.5 MCG/KG/HR 4. 65 mls/hr IV .[id number] [facility] Rx#:[id number] Tube Feeding 360 360 180 Other 90 90 30 Output: Urine 949 553 5694 Other: Voiding Method Indwelling Catheter Indwelling Catheter Indwelling Catheter ABP, PAP, CO, CI - Last Documented Arterial Blood Pressure 108/48 - Exam General: [non toxic], [intubated], [appears at stated age] Derm: [warm], [dry], [fullness of the neck with slight crepitus] Head: [atraumatic], [normocephalic], [symmetric] Eyes: [EOMI], [no lid lag], [anicteric sclera] Mouth: [no lip lesion], [mucus membranes moist] Cardiovascular: [S1S2 reg], [no murmur], [positive DP pulse bilateral], Lungs: [Coarse breath sounds bilateral], [no rhonchi, no rales] , [no accessory muscle use] Abdominal: [soft], [ nontender to palpation], [decreased bowel sounds], [no appreciable organomegaly] Ext: [no gross muscle atrophy], [no edema], [no contractures] Neuro: [Unable to determine] Psych: [Unable to determine] - Labs CBC & Chem 7: 02/09/20 04:20 02/09/20 04:20 Labs: Abnormal Lab Results - Last 24 Hours (Table) 02/08/20 02/09/20 02/09/20 Range/Units 04:42 00:03 04:20 RBC (4.30-5.90) m/uL Hgb (13.0-17.5) gm/dL Hct (39.0-53.0) % RDW (11.5-15.5) % Plt Count (150-450) k/uL Lymphocytes # (1.0-4.8) k/uL ABG pCO2 (35-45) mmHg ABG pO2 (83-108) mmHg ABG HCO3 (21-25) mmol/L ABG Total CO2 (19-24) mmol/L Sodium (137-145) mmol/L Carbon Dioxide (22-30) mmol/L BUN (9-20) mg/dL Creatinine (0.66-1.25) mg/dL Glucose (74-99) mg/dL POC Glucose (mg/dL) 107 H (75-99) mg/dL Calcium (8.4-10.2) mg/dL Ferritin (22.0-322.0) ng/mL Lactate Dehydrogenase (313-618) U/L Procalcitonin 0.15 H 0.14 H (0.02-0.09) ng/mL 02/09/20 02/09/20 02/09/20 Range/Units 04: 04:20 05:25 RBC 3.64 L (4.30-5.90) m/uL Hgb 10.8 L (13.0-17.5) gm/dL Hct 34.6 L (39.0-53.0) % RDW 16.4 H (11.5-15.5) % Plt Count 141 L (150-450) k/uL Lymphocytes # 0.9 L (1.0-4.8) k/uL ABG pCO2 55 H (35-45) mmHg ABG pO2 80 L (83-108) mmHg ABG HCO3 34 H (21-25) mmol/L ABG Total CO2 35 H (19-24) mmol/L Sodium 136 L (137-145) mmol/L Carbon Dioxide 36 H (22-30) mmol/L BUN 25 H (9-20) mg/dL Creatinine 0.53 L (0.66-1.25) mg/dL Glucose 112 H (74-99) mg/dL POC Glucose (mg/dL) (75-99) mg/dL Calcium 7.9 L (8.4-10.2) mg/dL Ferritin 355.0 H (22.0-322.0) ng/mL Lactate Dehydrogenase 653 H (313-618) U/L Procalcitonin (0.02-0.09) ng/mL 02/09/20 02/09/20 Range/Units 06:01 11:15 RBC (4.30-5.90) m/uL Hgb (13.0-17.5) gm/dL Hct (39.0-53.0) % RDW (11.5-15.5) % Plt Count (150-450) k/uL Lymphocytes # (1.0-4.8) k/uL ABG pCO2 (35-45) mmHg ABG pO2 (83-108) mmHg ABG HCO3 (21-25) mmol/L ABG Total CO2 (19-24) mmol/L Sodium (137-145) mmol/L Carbon Dioxide (22-30) mmol/L BUN (9-20) mg/dL Creatinine (0.66-1.25) mg/dL Glucose (74-99) mg/dL POC Glucose (mg/dL) 112 H 113 H (75-99) mg/dL Calcium (8.4-10.2) mg/dL Ferritin (22.0-322.0) ng/mL Lactate Dehydrogenase (313-618) U/L Procalcitonin (0.02-0.09) ng/mL Microbiology - Last 24 Hours (Table) 02/02/20 18:09 Blood Culture - Final Blood No Growth after 144 hours Assessment and Plan Assessment: Acute hypoxic respiratory failure, COVID 19 pneumonia Immunocompromised secondary to methotrexate for history of rheumatoid arthritis Subcutaneous emphysema around the neck Constipation Patient continues to require ventilatory support. This is being managed by pulmonology. He has completed his course of hydroxychloroquine. Infectious disease started Zosyn for concerns of aspiration pneumonia. He will be continued on IV steroids and zinc. He is on contact and droplet precautions. Infectious disease and pulmonology is following. Repeat CRP, CMP, CPK, d-dimer, ferritin and LDH tomorrow. His subcutaneous emphysema around the neck is improving and likely related to changes in IV lines. Despite being given lactulose patient is still not had a bowel movement. With decrease bowel sounds, concerns for ileus or bowel obstruction. Discussed with RN, RN to discuss with senior application programmer necessity for KUB or CT abdomen and pelvis. Patient is pending clinical improvement. Prognosis is extremely guarded.
[2020-02-09] MEDS ORDERED: BISACODYL 10 MG SUPP RECTAL STA (14:49)
[2020-02-09] MEDS: METOCLOPRAMIDE 5 MG/ML 2 ML VIAL IVP SCH ×2 (17:12→23:59)
--- NOTE | 2020-02-09 17:43 | PN ---
PROGRESS NOTE DATE OF SERVICE: 02/09/2020 REASON FOR FOLLOWUP: Pneumonia. INTERVAL HISTORY: The patient is currently afebrile. The patient is hemodynamically stable, not on any pressor support. FiO2 is currently stable. No diarrhea has been reported by the nursing staff. PHYSICAL EXAMINATION: Blood pressure is 108/51 with a pulse of 87, temperature 98.1. He is 93% on 50% FiO2. General description is a middle-aged male intubated on the vent. RESPIRATORY SYSTEM: Unlabored breathing with decreased breath sounds at the base. No wheeze. HEART: S1, S2. Regular rate and rhythm. ABDOMEN: Soft. No tenderness. LABS: Hemoglobin is 10.8, white count 7.2, BUN of 25, creatinine 0.53. LDH down to 653. DIAGNOSTIC IMPRESSION AND PLAN: Patient with acute respiratory failure which is multifactorial in this patient with a component of COVID-19 pneumonia; completed treatment. Concern for possible aspiration pneumonitis. Covered with Zosyn; to continue and monitor his clinical course closely. MMODL / IJN: [id number] /
[2020-02-10 00:12] LABS: Glucose,Whole Blood 120 mg/dL (75-99)
[2020-02-10] MEDS: INSULIN ASPART (NovoLOG) 100 UNIT/ML VIAL SQ SCH ×4 (00:31→17:31)
[2020-02-10] MEDS: fentaNYL (PF) 2,500 MCG in SODIUM CHLORIDE 0.9% 200 ML IV SCH (02:02)
[2020-02-10] MEDS: PROPOFOL 1,000 MG in EMPTY BAG 1 BAG IV SCH ×6 (02:35→20:26)
[2020-02-10 04:22] LABS: Anisocytosis Slight; Basophils % (A) 0 %; Eosinophils # (A) 0.1 k/uL (0-0.7); Eosinophils % (A) 1 %; HCT 39.5 % (39.0-53.0); HGB 12.6 gm/dL (13.0-17.5); Lymphocytes % (A) 11 %; MCHC 31.9 g/dL (31.0-37.0); Macrocytosis Slight; Mean Platelet Volume 8.6; Monocytes # (A) 0.2 k/uL (0-1.0); Monocytes % (A) 2 %; Neutrophils # (A) 7.5 k/uL (1.3-7.7); Neutrophils % (A) 84 %; Platelet Count 165 k/uL (150-450); RBC 4.21 m/uL (4.30-5.90); RDW 17.4 % (11.5-15.5)
[2020-02-10 04:34] LABS: African American GFR (CKD) >90 (>60 ml/min/1.73 sqM); Anion Gap 1 mmol/L; Blood Urea Nitrogen 24 mg/dL (9-20); C Reactive Protein <5.0 mg/L (<10.0); Carbon Dioxide 36 mmol/L (22-30); Chloride 98 mmol/L (98-107); Glucose 108 mg/dL (74-99); LDH 659 U/L (313-618); Non-African American GFR(CKD) >90 (>60 ml/min/1.73 sqM); Potassium 3.6 mmol/L (3.5-5.1); Sodium 135 mmol/L (137-145)
[2020-02-10 05:48] LABS: ABG HCO3 35 mmol/L (21-25); ABG Oxygen Saturation 93.9 % (94-97); ABG PCO2 44 mmHg (35-45); ABG PH 7.51 (7.35-7.45); ABG PO2 67 mmHg (83-108); ABG TCO2 36 mmol/L (19-24); Allen Test Performed? Yes
[2020-02-10 06:30] LABS: Glucose,Whole Blood 103 mg/dL (75-99)
[2020-02-10] MEDS: SODIUM CHLORIDE 0.9% 1,000 ML IV SCH ×2 (06:48→15:38)
[2020-02-10] MEDS: METOCLOPRAMIDE 5 MG/ML 2 ML VIAL IVP SCH ×3 (06:55→17:25)
[2020-02-10] MEDS: ALBUTEROL HFA INHALER INHALATION SCH ×4 (07:43→18:59)
[2020-02-10] MEDS: CHLORHEXIDINE GLUCONATE 15 ML CUP MUCOUS MEM SCH ×2 (07:52→20:26)
[2020-02-10] MEDS: PIPERACILLIN-TAZOBACTAM 3.375 GM in SODIUM CHLORIDE 0.9% 100 ML IVPB SCH ×2 (07:52→15:37)
[2020-02-10] MEDS: PANTOPRAZOLE 40 MG/10 ML VIAL IVP SCH (07:53)
[2020-02-10] MEDS: LACTULOSE 20 GM/30 ML CUP PO SCH ×2 (07:53→20:27)
[2020-02-10] MEDS: FUROSEMIDE 10 MG/ML 4 ML VIAL IV SCH (07:54)
[2020-02-10] MEDS: ENOXAPARIN 40 MG/0.4 ML SYRINGE SQ SCH (07:55)
[2020-02-10] MEDS: ZINC SULFATE 220 MG CAP PO SCH (07:56)
[2020-02-10] MEDS: ASCORBIC ACID 500 MG TAB OG-TUBE SCH ×2 (07:57→20:26)
[2020-02-10] MEDS: methylPREDNISolone SOD SUCCI 40 MG/ML 1 ML VIAL IV SCH ×2 (07:57→20:26)
[2020-02-10] MEDS ORDERED: POTASSIUM BICARBONATE/CIT AC 20 MEQ TABLET.EFF NG-TUBE SCH (08:00)
--- NOTE | 2020-02-10 08:02 | XR ---
EXAMINATION TYPE: XR chest 1V portable DATE OF EXAM: 02/10/2020 COMPARISON: 02/09/2020 INDICATION: Difficulty breathing, ventilator dependent TECHNIQUE: Single frontal view of the chest is obtained. FINDINGS: The heart size is upper limits of normal. The pulmonary vasculature is normal. There is diffuse increased lung markings present bilaterally. This may be more focal in the right low er lobe. Findings are similar to comparison. Endotracheal tube tip is 2.5 cm above the lore. Nasogastric tube transverses the thorax. Note is ma de of subcutaneous emphysema within the neck bilaterally. No pneumothorax is evident. There is along the lateral left chest. This was present previously. IMPRESSION: 1. On diffuse increased lung markings appear stable from comparison. 2. Lines and catheters stable from comparison
[2020-02-10 11:25] LABS: Ferritin 322.1 ng/mL (22.0-322.0)
[2020-02-10 11:54] LABS: Glucose,Whole Blood 118 mg/dL (75-99)
--- NOTE | 2020-02-10 12:16 | P.PN ---
Subjective Progress Note Date: 02/10/20 This is a 64-year-old male patient with history of rheumatoid arthritis maintained on methotrexate on outpatient basis was hospitalized for acute Covid 19 pneumonia. The patient was originally admitted to the hospital on 01/22/2020, and back then I was involved in his care and I saw him in consultation as the patient was becoming progressively more hypoxemic. He ultimately required intubation mechanical ventilation. The patient developed worsening in pneumonia and subsequent ARDS related to Covid 19 infection. He was intubated on 01/30/2020 and his been intubated since. During the course of his treatment, the patient was maintained on mechanical ventilator sedated she is with a combination of Plaquenil and systemic steroids and subsequently the patient also received 2 doses of tocilizumab on 02/01 on 02/03/2020.. The patient has been kept on mechanical ventilator on assist control mode at the rate of 30 with a tidal volume of 450 and FiO2 of 50% with a PEEP of 15. He has required a combination of propofol and fentanyl for sedation and propofol is running at 60 mcg/kg per minute and fentanyl is running at 1.5 mcg/kg/h. His chest x-ray continues to show left basilar airspace disease although there has been some improvement in aeration in the right lung. There is still evidence of subcutaneous emphysema in his neck area bilaterally. ET tube remains in good location. As mentioned earlier, the patient completed Plaquenil and he remains on vitamin C and zinc sulfate. He remains on IV Solu-Medrol 40 mg every 8 hours and the patient is also on empiric antibiotic coverage with IV Zosyn. His sputum is shown Fiordaliza albicans. His overall inflammatory markers showed a d- dimer of 0.9 which has gradually dropped from as high as 2.09 and the patient has been on Lovenox 100 mg subcu every 12 hours. The patient has also demonstrated a high LDH which has remained high and the CRP and the ferritin have gradually improved during the course of the treatment. His interleukin-6 level was 15 on 02/04/2020. On today's evaluation of 02/09/2020, the patient remains sedated with propofol at 60 g per KG per minute and the patient is also on fentanyl. The patient is on no paralytics. He is on assist control mode with a PEEP of 15 and a tidal volume of 450 and FiO2 of 50% with a rate of 30. The blood gases from today showed a pH of 7.4 with a pCO2 55 and a pO2 of 80. The chest x-ray findings are essentially stable and unchanged with diffuse bilateral pulmonary interstitial and alveolar infiltrates. The patient has developed significant amount of fluid overload. His fluid balance has been extensively negative in the order of 2.1 L on a daily basis at least and he has developed significant edema in lower extremities. His weight is up 204 kg which is 11 kg higher compared to his admission day. On today's evaluation of 02/10/2020, I'm seeing this patient for a follow-up in the intensive care unit. The patient remains sedated on propofol at 30 g per KG per minute and the patient is also on fentanyl at 70 g per KG per hour.. The patient is an assist-control mode of ventilation at the rate of 30 with a tidal volume of 400 and FiO2 of 70% with a PEEP of 5. The morning blood gases showed a pH of 7.51 with a pCO2 44 and pO2 of 67. The patient has stable bila teral pulmonary infiltrates related to Covid 19 related pneumonia. Patient has completed the course of Plaquenil. The patient is afebrile. The patient is demonstrating a stable LDH level of 659 and the patient's C-reactive protein is less than 5. BUN is 24 with a creatinine of 0.5. Aggressive efforts at all within normal limits. The patient is being diuresis with IV Lasix. The patient is receiving Lasix 40 mg and push every 12 hours. The patient has been negative fluid balance of 4 L over the past 24 hours. We are the process of getting this patient a sedation holiday. As were doing that, it was noted that the patient was becoming progressively more restless and asynchronous with a mechanical ventilator. This patient to a pressure control mode with a pressure control of 15, PEEP of 5, FiO2 of 70% at the rate of 22. The patient has been tolerating this setting without any major difficulties and he has become more synchronous. He has been switched to prophylactic dose of Lovenox. No other significant events otherwise for now. He is in the process of getting a sedation holiday. Objective - Vital Signs Vital signs: Vital Signs Temp 99.0 F 02/10/20 08:00 Pulse 80 02/10/20 11:00 Resp 18 02/10/20 11:00 BP 91/58 02/10/20 09:00 Pulse Ox 91 L 02/10/20 11:00 Intake & Output 02/09/20 02/10/20 02/10/20 18:59 06:59 18:59 Intake Total 986 1389.000 385 Output Total 3700 2715 1800 Balance -2714 -1326.000 -1415 Weight 104.6 kg 100.7 kg 100.7 kg Intake: IV 536 379 115 Normal Saline Pressure 36 39 15 Bag Piperacillin-Tazobactam 3 200 100 .375 gm In Sodium Chloride 0.9% 100 ml @ 25 mls/hr IVPB Q8HR [facility] Rx# :[id number] Sodium Chloride 0.9% 1, 300 240 100 000 ml @ 20 mls/hr IV . Q24H [facility] Rx#:[id number] Intake, IV Titration 650.000 Amount Propofol 1,000 mg In 400.000 Empty Bag 1 bag @ Titrate IV .Q0M [facility] Rx#: [id number] fentaNYL (PF) 2,500 mcg 250 In Sodium Chloride 0.9% 200 ml @ 1.5 MCG/KG/HR 15 .69 mls/hr IV .[id number] [facility] Rx#:[id number] Tube Feeding 360 240 240 Other 90 120 30 Output: Urine 3700 2715 1800 Other: Voiding Method Indwelling Catheter Indwelling Catheter Indwelling Catheter ABP, PAP, CO, CI - Last Documented Arterial Blood Pressure 145/73 - Exam GENERAL EXAM: Intubated, sedated, orogastric and orotracheal tube are both in place. HEAD: Normocephalic. EYES: Sluggish reaction of pupils, equal size. NOSE: Clear with pink turbinates. THROAT: Oral endotracheal and gastric tube secured in place. No erythema or exudates. NECK: No masses, no JVD. CHEST: No chest wall deformity. LUNGS: Equal air entry with few scattered rhonchi, crackles in the posterior bases. CVS: S1 and S2 normal with no audible murmur, regular rhythm. ABDOMEN: No hepatosplenomegaly, normal bowel sounds, no guarding or rigidity. SPINE: No scoliosis or deformity SKIN: No rashes CENTRAL NERVOUS SYSTEM: Sedated , and hematocrit neurologically ventilation cannot be done as the patient sedated for now EXTREMITIES: There is significant amount of peripheral edema in all 4 extremities. No clubbing, no cyanosis. Peripheral pulses are intact. - Labs CBC & Chem 7: 02/10/20 04:00 02/10/20 04:00 Labs: Abnormal Lab Results - Last 24 Hours (Table) 02/10/20 02/10/20 02/10/20 Range/Units 00:10 04:00 04:00 RBC 4.21 L (4.30-5.90) m/uL Hgb 12.6 L (13.0-17.5) gm/dL RDW 17.4 H (11.5-15.5) % D-Dimer (<0.60) mg/L FEU ABG pH (7.35-7.45) ABG pO2 (83-108) mmHg ABG HCO3 (21-25) mmol/L ABG Total CO2 (19-24) mmol/L ABG O2 Saturation (94-97) % Sodium 135 L (137-145) mmol/L Carbon Dioxide 36 H (22-30) mmol/L BUN 24 H (9-20) mg/dL Creatinine 0.56 L (0.66-1.25) mg/dL Glucose 108 H (74-99) mg/dL POC Glucose (mg/dL) 120 H (75-99) mg/dL Calcium 8.0 L (8.4-10.2) mg/dL Ferritin 322.1 H (22.0-322.0) ng/mL Lactate Dehydrogenase 659 H (313-618) U/L 02/10/20 02/10/20 02/10/20 Range/Units 04:00 05:42 06:28 RBC (4.30-5.90) m/uL Hgb (13.0-17.5) gm/dL RDW (11.5-15.5) % D-Dimer 1.62 H (<0.60) mg/L FEU ABG pH 7.51 H (7.35-7.45) ABG pO2 67 L (83-108) mmHg ABG HCO3 35 H (21-25) mmol/L ABG Total CO2 36 H (19-24) mmol/L ABG O2 Saturation 93.9 L (94-97) % Sodium (137-145) mmol/L Carbon Dioxide (22-30) mmol/L BUN (9-20) mg/dL Creatinine (0.66-1.25) mg/dL Glucose (74-99) mg/dL POC Glucose (mg/dL) 103 H (75-99) mg/dL Calcium (8.4-10.2) mg/dL Ferritin (22.0-322.0) ng/mL Lactate Dehydrogenase (313-618) U/L 02/10/20 Range/Units 11:52 RBC (4.30-5.90) m/uL Hgb (13.0-17.5) gm/dL RDW (11.5-15.5) % D-Dimer (<0.60) mg/L FEU ABG pH (7.35-7.45) ABG pO2 (83-108) mmHg ABG HCO3 (21-25) mmol/L ABG Total CO2 (19-24) mmol/L ABG O2 Saturation (94-97) % Sodium (137-145) mmol/L Carbon Dioxide (22-30) mmol/L BUN (9-20) mg/dL Creatinine (0.66-1.25) mg/dL Glucose (74-99) mg/dL POC Glucose (mg/dL) 118 H (75-99) mg/dL Calcium (8.4-10.2) mg/dL Ferritin (22.0-322.0) ng/mL Lactate Dehydrogenase (313-618) U/L Assessment and Plan Plan: 1 acute bilateral Covid 19 pneumonia . This is a extensive pneumonia and the patient was been immunosuppressed on methotrexate for rheumatoid arthritis. this patient has been intubated on a mechanical ventilator since01/30/2020 and a chest x-ray still showing diffuse bilateral pulmonary infiltras more so on the right upper lobe. Continues to be sedated. He completed Plaquenil. He received Actemra , [id number] therapy, and the patient continues to systemic steroids. D-dimer was elevated and the patient was placed on Lovenox. LDH remains elevated. CRP and ferritin levels have improved. D-dimer also has improved. D-dimer is down to 0.9 as the patient is receiving therapeutic doses of Lovenox. On 02/10/2020, the patient's chest x-ray remains essentially stable. As the patient was getting a sedation holiday, he became asynchronous with a mechanical ventilator and he was switched to a pressure control mode of ventilation. We're in the process of getting him sedation holiday and weaning parameters will be checked. He is being diuresis with IV Lasix. He is on IV Solu-Medrol. He has completed his course of Plaquenil and the patient was also given Actemra 2 acute hypoxic respiratory failure secondary to above 3 episodic fever secondary to above, Recovered 4 diarrhea due to GI manifestation of Covid 19 infection, improved 6 lymphopenia secondary to Covid 19 infection, improved 7 rheumatoid arthritis maintained on methotrexate on outpatient basis as such the patient has been chronically immunosuppressed. 8 fluid overload Plan Continue Lasix 40 mg every 12 hours IV fluids to KVO Drop the Lovenox dose to prophylactic dose of 40 mg subcu every 24 hours and the d-dimer is improved Continued IV Solu-Medrol Sedation holiday Pressure control mode of ventilation for now with hist own direct observations ory much more comforable and synchronous own direct observation Continue the rest of supportive care We'll make further recommendations regarding further weaning and possible extubation depending on his overall progress, readiness to wean. I'm willing to extubate this patient to high flow O2 as long as is able to demonstrate adequate level of alertness an adequate ability to ventilate. Further recommendations are to follow based on his progress. This is a critically care evaluation that was done and morning 30 minutes.
[2020-02-10] MEDS ORDERED: DEXMEDETOMIDINE/0.9% NACL(PMX) 400 MCG in EMPTY BAG 1 BAG IV SCH (13:00)
[2020-02-10 14:44] LABS: ABG Base Excess 10.3 mmol/L; ABG HCO3 33 mmol/L (21-25); ABG Oxygen Saturation 83.9 % (94-97); ABG PCO2 41 mmHg (35-45); ABG PH 7.52 (7.35-7.45); ABG TCO2 34 mmol/L (19-24)
[2020-02-10 14:45] LABS: ABG PO2 48 mmHg (83-108)
[2020-02-10] MEDS ORDERED: PROPOFOL 10 MG/ML 20 ML VIAL IV ONE (15:00)
[2020-02-10] MEDS ORDERED: ROCURONIUM BROMIDE 10 MG/ML 5 ML VIAL IV ONE (15:00)
[2020-02-10] MEDS ORDERED: SUCCINYLCHOLINE CHLORIDE VIAL 200 MG/10 ML VIAL IV ONE (15:00)
[2020-02-10] MEDS ORDERED: CISATRACURIUM 2 MG/ML 5 ML VIAL IV ONE (16:00)
[2020-02-10] MEDS: CISATRACURIUM 200 MG in SODIUM CHLORIDE 0.9% 180 ML IV SCH (16:16)
[2020-02-10] MEDS: ARTIFICIAL TEARS-HYPROMELLOSE DROPS 15 ML BTL BOTH EYES SCH ×2 (16:16→22:59)
--- NOTE | 2020-02-10 16:21 | XR ---
EXAMINATION TYPE: XR chest 1V portable DATE OF EXAM: 02/10/2020 CLINICAL HISTORY: Difficulty breathing had to be intubated. TECHNIQUE: Single AP portable semiupright view of the chest is obtained. COMPARISON: Chest x-ray from earlier today and older studies FINDINGS: Endotracheal tube slightly retracted now above the aortic knob approximately 5 cm above ca liza. More ideal position. Stable appearing orogastric tube. Cardiac silhouette size stable and felt within normal limits with atherosclerotic aortic knob. Chroni c parenchymal changes with bibasilar opacities redemonstrated. Overlying extensive subcutaneous emphy sema again seen. No pneumothorax. Osseous structures are intact. IMPRESSION: 1. Better positioning of endotracheal tube after repositioning. 2. Other findings stable chronic parenchymal changes with bibasilar acute infiltrate and/or atelectas is and overlying extensive subcutaneous emphysema are all redemonstrated.
[2020-02-10 17:30] LABS: Glucose,Whole Blood 217 mg/dL (75-99)
[2020-02-10 18:00] LABS: ABG Oxygen Saturation 77.9 % (94-97); ABG PO2 67 mmHg (83-108); Allen Test Performed? Yes
[2020-02-10 18:01] LABS: ABG PCO2 >120 mmHg (35-45); ABG PH 7.02 (7.35-7.45)
[2020-02-10 18:36] LABS: ABG Base Excess 2.7 mmol/L; ABG HCO3 33 mmol/L (21-25); ABG Oxygen Saturation 68.7 % (94-97); ABG TCO2 37 mmol/L (19-24); Allen Test Performed? Yes
[2020-02-10 18:37] LABS: ABG PH 7.06 (7.35-7.45)
[2020-02-10 18:38] LABS: ABG PCO2 115 mmHg (35-45); ABG PO2 55 mmHg (83-108)
--- NOTE | 2020-02-10 19:25 | XR ---
EXAMINATION TYPE: XR chest 1V portable DATE OF EXAM: 02/10/2020 CLINICAL HISTORY: Difficulty breathing progress study. Rule out pneumothorax. TECHNIQUE: Single AP portable semiupright view of the chest is obtained. COMPARISON: Chest x-ray from earlier today and older studies FINDINGS: Stable endotracheal and orogastric tubes. Redemonstration of overlying subcutaneous emphys lyn along with bibasilar opacities. Partial silhouetting left hemidiaphragm redemonstrated. Cardiac s ilhouette size stable and within normal limits without gliotic change aortic knob. Osseous structures are intact. IMPRESSION: Overall stable findings, chronic parenchymal changes with bibasilar acute infiltrate an d/or atelectasis and overlying subcutaneous emphysema redemonstrated. No pneumothorax noted. No signi ficant change from most recent x-ray.
[2020-02-10 19:56] LABS: ABG HCO3 30 mmol/L (21-25); ABG Oxygen Saturation 86.7 % (94-97); ABG PO2 74 mmHg (83-108); ABG TCO2 33 mmol/L (19-24); Allen Test Performed? Yes
[2020-02-10 19:57] LABS: ABG PCO2 95 mmHg (35-45); ABG PH 7.11 (7.35-7.45)
--- NOTE | 2020-02-10 19:57 | P.PN ---
Subjective Progress Note Date: 02/10/20 Principal diagnosis: COVID 19 64-year-old male was admitted for acute hypoxic respiratory failure secondary to COVID 19 diagnosis. He was started on hydroxychloroquine, Rocephin and doxycycline along with albuterol inhaler and placed on droplet precautions. He was started on low-dose IV steroids and given supplemental O2 maintain maintain O2 saturation greater than 92%. He was initially on 6 L nasal cannula which progressively increased to 15 L high flow. Awake proning was attempted without much relief. Patient continued to deteriorate and pulmonology was consulted. Pulmonology recommended transfer to ICU for closer monitoring on 01/29/2020. He was intubated on 01/30/2020 overnight. He received 2 doses of Tocolizumab on February 01 and February 02. He continues to be intubated. Patient was seen and examined in the morning. He continues to be intubated. Rate is at 30. Tidal volume 400. FiO2 70 %. PEEP is at 5. Plans for sedation weaning and possible extubation today. Patient continues to receive Lasix 40 mg IV twice a day. D-dimer elevated at 1.6. LDH steady at 659. CRP improved. Pro-calcitonin steady at 0.15. Objective - Vital Signs Vital signs: Vital Signs Temp 99.7 F H 02/10/20 16:00 Pulse 130 H 02/10/20 19:00 Resp 0 L 02/10/20 19:00 BP 91/58 02/10/20 12:00 Pulse Ox 81 L 02/10/20 19:00 Intake & Output 02/10/20 02/10/20 02/11/20 06:59 18:59 06:59 Intake Total 1389.000 877.161 23 Output Total 2715 2690 40 Balance -1326.000 -1812.839 -17 Weight 100.7 kg 100.7 kg Intake: IV 379 276 23 Normal Saline Pressure 39 36 3 Bag Piperacillin-Tazobactam 3 100 .375 gm In Sodium Chloride 0.9% 100 ml @ 25 mls/hr IVPB Q8HR [facility] Rx# :[id number] Sodium Chloride 0.9% 1, 240 240 20 000 ml @ 20 mls/hr IV . Q24H [facility] Rx#:[id number] Intake, IV Titration 650.000 301.161 Amount Dexmedetomidine/0.9% NaCl 9.231 (Pmx) 400 mcg In Empty Bag 1 bag @ Titrate IV . Q0M [facility] Rx#:[id number] Propofol 1,000 mg In 400.000 152.376 Empty Bag 1 bag @ Titrate IV .Q0M [facility] Rx#: [id number] fentaNYL (PF) 2,500 mcg 250 139.554 In Sodium Chloride 0.9% 200 ml @ 1.5 MCG/KG/HR 15 .69 mls/hr IV .[id number] [facility] Rx#:[id number] Tube Feeding 240 270 0 Other 120 30 Output: Urine 2715 2690 40 Other: Voiding Method Indwelling Catheter Indwelling Catheter ABP, PAP, CO, CI - Last Documented Arterial Blood Pressure 90/60 - Exam General: [non toxic], [intubated], [appears at stated age] Derm: [warm], [dry], [fullness of the neck with slight crepitus] Head: [atraumatic], [normocephalic], [symmetric] Eyes: [EOMI], [no lid lag], [anicteric sclera] Mouth: [no lip lesion], [mucus membranes moist] Cardiovascular: [S1S2 reg], [no murmur], [positive DP pulse bilateral], Lungs: [Coarse breath sounds bilateral], [no rhonchi, no rales] , [no accessory muscle use] Abdominal: [soft], [ nontender to palpation], [decreased bowel sounds], [no appreciable organomegaly] Ext: [no gross muscle atrophy], [no edema], [no contractures] Neuro: [Unable to determine] Psych: [Unable to determine] - Labs CBC & Chem 7: 02/10/20 04:00 02/10/20 04:00 Labs: Abnormal Lab Results - Last 24 Hours (Table) 02/10/20 02/10/20 02/10/20 Range/Units 00:10 04:00 04:00 RBC 4.21 L (4.30-5.90) m/uL Hgb 12.6 L (13.0-17.5) gm/dL RDW 17.4 H (11.5-15.5) % D-Dimer (<0.60) mg/L FEU ABG pH (7.35-7.45) ABG pCO2 (35-45) mmHg ABG pO2 (83-108) mmHg ABG HCO3 (21-25) mmol/L ABG Total CO2 (19-24) mmol/L ABG O2 Saturation (94-97) % Sodium (137-145) mmol/L Carbon Dioxide (22-30) mmol/L BUN (9-20) mg/dL Creatinine (0.66-1.25) mg/dL Glucose (74-99) mg/dL POC Glucose (mg/dL) 120 H (75-99) mg/dL Calcium (8.4-10.2) mg/dL Ferritin (22.0-322.0) ng/mL Lactate Dehydrogenase (313-618) U/L Procalcitonin 0.15 H (0.02-0.09) ng/mL 02/10/20 02/10/20 02/10/20 Range/Units 04:00 04:00 05:42 RBC (4.30-5.90) m/uL Hgb (13.0-17.5) gm/dL RDW (11.5-15.5) % D-Dimer 1.62 H (<0.60) mg/L FEU ABG pH 7.51 H (7.35-7.45) ABG pCO2 (35-45) mmHg ABG pO2 67 L (83-108) mmHg ABG HCO3 35 H (21-25) mmol/L ABG Total CO2 36 H (19-24) mmol/L ABG O2 Saturation 93.9 L (94-97) % Sodium 135 L (137-145) mmol/L Carbon Dioxide 36 H (22-30) mmol/L BUN 24 H (9-20) mg/dL Creatinine 0.56 L (0.66-1.25) mg/dL Glucose 108 H (74-99) mg/dL POC Glucose (mg/dL) (75-99) mg/dL Calcium 8.0 L (8.4-10.2) mg/dL Ferritin 322.1 H (22.0-322.0) ng/mL Lactate Dehydrogenase 659 H (313-618) U/L Procalcitonin (0.02-0.09) ng/mL 02/10/20 02/10/20 02/10/20 Range/Units 06:28 11:52 14:41 RBC (4.30-5.90) m/uL Hgb (13.0-17.5) gm/dL RDW (11.5-15.5) % D-Dimer (<0.60) mg/L FEU ABG pH 7.52 H (7.35-7.45) ABG pCO2 (35-45) mmHg ABG pO2 48 L* (83-108) mmHg ABG HCO3 33 H (21-25) mmol/L ABG Total CO2 34 H (19-24) mmol/L ABG O2 Saturation 83.9 L (94-97) % Sodium (137-145) mmol/L Carbon Dioxide (22-30) mmol/L BUN (9-20) mg/dL Creatinine (0.66-1.25) mg/dL Glucose (74-99) mg/dL POC Glucose (mg/dL) 103 H 118 H (75-99) mg/dL Calcium (8.4-10.2) mg/dL Ferritin (22.0-322.0) ng/mL Lactate Dehydrogenase (313-618) U/L Procalcitonin (0.02-0.09) ng/mL 02/10/20 02/10/20 02/10/20 Range/Units 17:29 17:53 18:34 RBC (4.30-5.90) m/uL Hgb (13.0-17.5) gm/dL RDW (11.5-15.5) % D-Dimer (<0.60) mg/L FEU ABG pH 7.02 L* 7.06 L* (7.35-7.45) ABG pCO2 >120 H* 115 H* (35-45) mmHg ABG pO2 67 L 55 L* (83-108) mmHg ABG HCO3 33 H (21-25) mmol/L ABG Total CO2 37 H (19-24) mmol/L ABG O2 Saturation 77.9 L 68.7 L (94-97) % Sodium (137-145) mmol/L Carbon Dioxide (22-30) mmol/L BUN (9-20) mg/dL Creatinine (0.66-1.25) mg/dL Glucose (74-99) mg/dL POC Glucose (mg/dL) 217 H (75-99) mg/dL Calcium (8.4-10.2) mg/dL Ferritin (22.0-322.0) ng/mL Lactate Dehydrogenase (313-618) U/L Procalcitonin (0.02-0.09) ng/mL Assessment and Plan Assessment: Acute hypoxic respiratory failure, COVID 19 pneumonia Immunocompromised secondary to methotrexate for history of rheumatoid arthritis Subcutaneous emphysema around the neck Constipation Patient continues to require ventilatory support. This is being managed by pulmonology and there are plans for possible extubation today. He has completed his course of hydroxychloroquine. Infectious disease started Zosyn for concerns of aspiration pneumonia. He will be continued on IV steroids and zinc. He is on contact and droplet precautions. Infectious disease and pulmonology is following. Repeat CRP, CMP, CPK, d-dimer, ferritin and LDH tomorrow. His subcutaneous emphysema around the neck is improving and likely related to changes in IV lines. Despite being given lactulose patient is still not had a bowel movement. With decrease bowel sounds, concerns for ileus or bowel obstruction. Will obtain KUB tomorrow. Patient is pending clinical improvement. Prognosis is extremely guarded.
[2020-02-10 23:58] LABS: ABG Base Excess 5.5 mmol/L; ABG HCO3 34 mmol/L (21-25); ABG Oxygen Saturation 90.4 % (94-97); ABG PO2 77 mmHg (83-108); ABG TCO2 37 mmol/L (19-24); Allen Test Performed? Yes
[2020-02-10 23:59] LABS: ABG PH 7.15 (7.35-7.45)
[2020-02-11] LABS: ABG PCO2 99 mmHg (35-45)
[2020-02-11 00:14] LABS: Glucose,Whole Blood 138 mg/dL (75-99)
[2020-02-11] MEDS: INSULIN ASPART (NovoLOG) 100 UNIT/ML VIAL SQ SCH ×4 (00:43→17:49)
[2020-02-11] MEDS: FUROSEMIDE 10 MG/ML 4 ML VIAL IV SCH (00:50)
[2020-02-11] MEDS: PROPOFOL 1,000 MG in EMPTY BAG 1 BAG IV SCH ×6 (00:51→22:28)
[2020-02-11] MEDS: PIPERACILLIN-TAZOBACTAM 3.375 GM in SODIUM CHLORIDE 0.9% 100 ML IVPB SCH ×2 (00:51→09:38)
[2020-02-11] MEDS: ARTIFICIAL TEARS-HYPROMELLOSE DROPS 15 ML BTL BOTH EYES SCH ×6 (00:53→22:27)
[2020-02-11] MEDS: METOCLOPRAMIDE 5 MG/ML 2 ML VIAL IVP SCH (00:53)
[2020-02-11] MEDS: fentaNYL (PF) 2,500 MCG in SODIUM CHLORIDE 0.9% 200 ML IV SCH ×2 (01:00→13:44)
[2020-02-11 04:48] LABS: ABG Base Excess 7.1 mmol/L; ABG HCO3 36 mmol/L (21-25); ABG Oxygen Saturation 96.6 % (94-97); ABG PO2 104 mmHg (83-108); ABG TCO2 39 mmol/L (19-24)
[2020-02-11 04:50] LABS: ABG PCO2 97 mmHg (35-45); ABG PH 7.17 (7.35-7.45)
[2020-02-11 04:51] LABS: Allen Test Performed? no
[2020-02-11 05:13] LABS: African American GFR (CKD) >90 (>60 ml/min/1.73 sqM); Anion Gap 4 mmol/L; Blood Urea Nitrogen 33 mg/dL (9-20); C Reactive Protein 43.6 mg/L (<10.0); Carbon Dioxide 36 mmol/L (22-30); Chloride 97 mmol/L (98-107); Glucose 117 mg/dL (74-99); LDH 929 U/L (313-618); Non-African American GFR(CKD) 81 (>60 ml/min/1.73 sqM); Potassium 4.2 mmol/L (3.5-5.1); Sodium 137 mmol/L (137-145)
[2020-02-11 05:19] LABS: Anisocytosis Slight; Basophils % (A) 0 %; Eosinophils # (A) 0.1 k/uL (0-0.7); Eosinophils % (A) 0 %; HCT 37.2 % (39.0-53.0); HGB 11.5 gm/dL (13.0-17.5); Hypochromasia Moderate; Lymphocytes # (A) 0.6 k/uL (1.0-4.8); Lymphocytes % (A) 3 %; MCH 30.4 pg (25.0-35.0); MCHC 30.8 g/dL (31.0-37.0); MCV 98.6 fL (80.0-100.0); Macrocytosis Slight; Mean Platelet Volume 8.5; Monocytes # (A) 0.6 k/uL (0-1.0); Monocytes % (A) 3 %; Neutrophils # (A) 18.4 k/uL (1.3-7.7); Neutrophils % (A) 93 %; Platelet Count 162 k/uL (150-450); RBC 3.78 m/uL (4.30-5.90); RDW 17.6 % (11.5-15.5); WBC 19.7 k/uL (3.8-10.6)
[2020-02-11 06:33] LABS: Glucose,Whole Blood 104 mg/dL (75-99)
[2020-02-11] MEDS ORDERED: SODIUM CHLORIDE 0.9% 1,000 ML IV ONE (07:18)
[2020-02-11] MEDS: ALBUTEROL HFA INHALER INHALATION SCH ×4 (07:20→20:09)
--- NOTE | 2020-02-11 08:29 | XR ---
EXAMINATION TYPE: XR chest 1V portable DATE OF EXAM: 02/11/2020 COMPARISON: 02/10/2020 HISTORY: Ventilatory dependent respiratory failure. TECHNIQUE: Single frontal view of the chest is obtained. FINDINGS: Redemonstration of left chest wall subcutaneous emphysema. Right costophrenic angle is not included on the image and cannot be evaluated. Overlying the lung apices. No gross pneumothorax is s een. Cardiomediastinal silhouette is upper limits of normal size and mildly rotated secondary to dwight ent positioning. Similar reticular bibasilar opacities. Enteric tube appears appropriately positioned however endotracheal tube is cephalad. IMPRESSION: 1. Stable reticular bibasilar opacities, likely multifocal pneumonia. 2. Redemonstration of left chest wall subcutaneous emphysema without discrete pneumothorax. Slightly cephalad position of the endotracheal tube which should be advanced approximately 4 cm for more optim al placement.
[2020-02-11] MEDS: CHLORHEXIDINE GLUCONATE 15 ML CUP MUCOUS MEM SCH ×2 (09:39→22:05)
[2020-02-11] MEDS: CISATRACURIUM 200 MG in SODIUM CHLORIDE 0.9% 180 ML IV SCH (09:40)
[2020-02-11] MEDS: methylPREDNISolone SOD SUCCI 125 MG/2 ML VIAL IV SCH ×2 (09:40→17:50)
[2020-02-11] MEDS: PANTOPRAZOLE 40 MG/10 ML VIAL IVP SCH (09:40)
[2020-02-11] MEDS: SODIUM CHLORIDE 0.9% 1,000 ML IV SCH (09:42)
[2020-02-11] MEDS: ASCORBIC ACID 500 MG TAB OG-TUBE SCH ×2 (09:43→21:45)
[2020-02-11] MEDS: ZINC SULFATE 220 MG CAP PO SCH (09:43)
[2020-02-11] MEDS: ENOXAPARIN 40 MG/0.4 ML SYRINGE SQ SCH (09:43)
[2020-02-11 11:33] LABS: Ferritin 928.5 ng/mL (22.0-322.0)
[2020-02-11 13:01] LABS: Glucose,Whole Blood 89 mg/dL (75-99)
[2020-02-11] MEDS ORDERED: VANCOMYCIN IV PER PHARMACY 1 EACH MISC MISCELLANE PRN (14:23)
--- NOTE | 2020-02-11 14:31 | P.PN ---
Subjective Progress Note Date: 02/11/20 This is a 64-year-old male patient with history of rheumatoid arthritis maintained on methotrexate on outpatient basis was hospitalized for acute Covid 19 pneumonia. The patient was originally admitted to the hospital on 01/22/2020, and back then I was involved in his care and I saw him in consultation as the patient was becoming progressively more hypoxemic. He ultimately required intubation mechanical ventilation. The patient developed worsening in pneumonia and subsequent ARDS related to Covid 19 infection. He was intubated on 01/30/2020 and his been intubated since. During the course of his treatment, the patient was maintained on mechanical ventilator sedated she is with a combination of Plaquenil and systemic steroids and subsequently the patient also received 2 doses of tocilizumab on 02/01 on 02/03/2020.. The patient has been kept on mechanical ventilator on assist control mode at the rate of 30 with a tidal volume of 450 and FiO2 of 50% with a PEEP of 15. He has required a combination of propofol and fentanyl for sedation and propofol is running at 60 mcg/kg per minute and fentanyl is running at 1.5 mcg/kg/h. His chest x-ray continues to show left basilar airspace disease although there has been some improvement in aeration in the right lung. There is still evidence of subcutaneous emphysema in his neck area bilaterally. ET tube remains in good location. As mentioned earlier, the patient completed Plaquenil and he remains on vitamin C and zinc sulfate. He remains on IV Solu-Medrol 40 mg every 8 hours and the patient is also on empiric antibiotic coverage with IV Zosyn. His sputum is shown Fiordaliza albicans. His overall inflammatory markers showed a d- dimer of 0.9 which has gradually dropped from as high as 2.09 and the patient has been on Lovenox 100 mg subcu every 12 hours. The patient has also demonstrated a high LDH which has remained high and the CRP and the ferritin have gradually improved during the course of the treatment. His interleukin-6 level was 15 on 02/04/2020. On today's evaluation of 02/09/2020, the patient remains sedated with propofol at 60 g per KG per minute and the patient is also on fentanyl. The patient is on no paralytics. He is on assist control mode with a PEEP of 15 and a tidal volume of 450 and FiO2 of 50% with a rate of 30. The blood gases from today showed a pH of 7.4 with a pCO2 55 and a pO2 of 80. The chest x-ray findings are essentially stable and unchanged with diffuse bilateral pulmonary interstitial and alveolar infiltrates. The patient has developed significant amount of fluid overload. His fluid balance has been extensively negative in the order of 2.1 L on a daily basis at least and he has developed significant edema in lower extremities. His weight is up 204 kg which is 11 kg higher compared to his admission day. On today's evaluation of 02/10/2020, I'm seeing this patient for a follow-up in the intensive care unit. The patient remains sedated on propofol at 30 g per KG per minute and the patient is also on fentanyl at 70 g per KG per hour.. The patient is an assist-control mode of ventilation at the rate of 30 with a tidal volume of 400 and FiO2 of 70% with a PEEP of 5. The morning blood gases showed a pH of 7.51 with a pCO2 44 and pO2 of 67. The patient has stable bila teral pulmonary infiltrates related to Covid 19 related pneumonia. Patient has completed the course of Plaquenil. The patient is afebrile. The patient is demonstrating a stable LDH level of 659 and the patient's C-reactive protein is less than 5. BUN is 24 with a creatinine of 0.5. Aggressive efforts at all within normal limits. The patient is being diuresis with IV Lasix. The patient is receiving Lasix 40 mg and push every 12 hours. The patient has been negative fluid balance of 4 L over the past 24 hours. We are the process of getting this patient a sedation holiday. As were doing that, it was noted that the patient was becoming progressively more restless and asynchronous with a mechanical ventilator. This patient to a pressure control mode with a pressure control of 15, PEEP of 5, FiO2 of 70% at the rate of 22. The patient has been tolerating this setting without any major difficulties and he has become more synchronous. He has been switched to prophylactic dose of Lovenox. No other significant events otherwise for now. He is in the process of getting a sedation holiday. On 02/11/2020, the patient is being seen in follow-up in the intensive care unit. Events from yesterday were noted. The patient seems to be quite waking up reasonably well off sedation. He was given a sedation holiday. He was able to open up his eyes and follows some simple commands. Nevertheless he was found to be quite weak with the patient was unable to reach or gravel raises of the kidneys gravity. He did have a weak cough and gag. Decided to give him a trial of extubation yesterday and the patient was extubated to BiPAP. Within 2 hours post extubation, the patient failed and he had to be reintubated. Since then, the patient's condition progressively got worse. The patient was initially on a pressure control mode of ventilation. He was unable to oxygenate and ventilate well. He was switched to volume cycle and gradually PEEP was increased and based on our inability to adequately oxygen and the patient, he was phoned and placed in a prone position throughout the evening. This morning, the patient is on a volume control mode of ventilation at the rate of 32 with a tidal volume of 400 and a PEEP of 18 with an FiO2 of 100%. PH was at 7.17 with a pCO2 97 and pO2 of 104. Peak air pressures 33. Static pressure is 32. Rest x-ray remains unchanged with diffuse interstitial breath and pulmonary infiltrates. The patient received a bolus of IV fluids 1 L the patient was having increased diarrhea. Reglan and the rest of the laxative medications were discontinued and stool was sent for C. diff. He is on a maintenance appointment at the rate of 70 mL an hour. He is on propofol at 40 mg per KG per minute, fentanyl at 0.8 and Nimbex at 1 mcg/kg per minute. The patient is was sedated and suggested a mechanical ventilator at this point in time. He is receiving enteral feeding for nutritional support and he has a fecal management system regarding his ongoing diarrhea. Contacted her daughter and updated her on her father's condition. Objective - Vital Signs Vital signs: Vital Signs Temp 95.5 F L 02/11/20 12:00 Pulse 83 02/11/20 14:00 Resp 32 H 02/11/20 14:00 BP 91/58 02/11/20 11:30 Pulse Ox 100 02/11/20 14:00 Intake & Output 02/10/20 02/11/20 02/11/20 18:59 06:59 18:59 Intake Total 877.161 072.708 4915.571 Output Total 2690 1101 515 Balance -1812.839 -548.198 7653.571 Weight 100.7 kg 99.7 kg 99.7 kg Intake: IV 276 376 261 Normal Saline Pressure 36 36 21 Bag Piperacillin-Tazobactam 3 100 100 .375 gm In Sodium Chloride 0.9% 100 ml @ 25 mls/hr IVPB Q8HR [facility] Rx# :[id number] Sodium Chloride 0.9% 1, 240 240 140 000 ml @ 20 mls/hr IV . Q24H [facility] Rx#:[id number] Intake, IV Titration 301.161 425.151 2253.571 Amount Cisatracurium 200 mg In 34.339 76.532 Sodium Chloride 0.9% 180 ml @ 1 MCG/KG/MIN 6.042 mls/hr IV .Q24H [facility] Rx#: [id number] Dexmedetomidine/0.9% NaCl 9.231 (Pmx) 400 mcg In Empty Bag 1 bag @ Titrate IV . Q0M [facility] Rx#:[id number] Propofol 1,000 mg In 152.376 292.140 198.039 Empty Bag 1 bag @ Titrate IV .Q0M [facility] Rx#: [id number] Sodium Chloride 0.9% 1, 1000 000 ml @ 999 mls/hr IV . Q1H1M [facility] Rx#:[id number] fentaNYL (PF) 2,500 mcg 139.554 88.282 In Sodium Chloride 0.9% 200 ml @ 1.5 MCG/KG/HR 15 .69 mls/hr IV .[id number] [facility] Rx#:[id number] Tube Feeding 270 0 0 Other 30 Output: Gastric Drainage 250 Urine 2690 851 515 Other: Voiding Method Indwelling Catheter Indwelling Catheter Indwelling Catheter ABP, PAP, CO, CI - Last Documented Arterial Blood Pressure 100/54 - Exam GENERAL EXAM: Intubated, sedated, orogastric and orotracheal tube are both in place. The patient currently is in a prone positioning. He is intubated on a mechanical ventilator. He is sedated and paralyzed for now. HEAD: Normocephalic. EYES: Sluggish reaction of pupils, equal size. NOSE: Clear with pink turbinates. THROAT: Oral endotracheal and gastric tube secured in place. No erythema or exudates. NECK: No masses, no JVD. CHEST: No chest wall deformity. LUNGS: Equal air entry with few scattered rhonchi, crackles in the posterior bases. CVS: S1 and S2 normal with no audible murmur, regular rhythm. ABDOMEN: No hepatosplenomegaly, normal bowel sounds, no guarding or rigidity. SPINE: No scoliosis or deformity SKIN: No rashes CENTRAL NERVOUS SYSTEM: Sedated and paralyzed EXTREMITIES: There is significant amount of peripheral edema in all 4 extremities. No clubbing, no cyanosis. Peripheral pulses are intact. - Labs CBC & Chem 7: 02/11/20 04:30 02/11/20 04:30 Labs: Abnormal Lab Results - Last 24 Hours (Table) 02/10/20 02/10/20 02/10/20 Range/Units 14:41 17:29 17:53 WBC (3.8-10.6) k/uL RBC (4.30-5.90) m/uL Hgb (13.0-17.5) gm/dL Hct (39.0-53.0) % MCHC (31.0-37.0) g/dL RDW (11.5-15.5) % Neutrophils # (1.3-7.7) k/uL Lymphocytes # (1.0-4.8) k/uL ABG pH 7.52 H 7.02 L* (7.35-7.45) ABG pCO2 >120 H* (35-45) mmHg ABG pO2 48 L* 67 L (83-108) mmHg ABG HCO3 33 H (21-25) mmol/L ABG Total CO2 34 H (19-24) mmol/L ABG O2 Saturation 83.9 L 77.9 L (94-97) % Chloride (98-107) mmol/L Carbon Dioxide (22-30) mmol/L BUN (9-20) mg/dL Glucose (74-99) mg/dL POC Glucose (mg/dL) 217 H (75-99) mg/dL Calcium (8.4-10.2) mg/dL Ferritin (22.0-322.0) ng/mL Lactate Dehydrogenase (313-618) U/L C-Reactive Protein (<10.0) mg/L Procalcitonin (0.02-0.09) ng/mL 02/10/20 02/10/20 02/10/20 Range/Units 18:34 19:54 23:54 WBC (3.8-10.6) k/uL RBC (4.30-5.90) m/uL Hgb (13.0-17.5) gm/dL Hct (39.0-53.0) % MCHC (31.0-37.0) g/dL RDW (11.5-15.5) % Neutrophils # (1.3-7.7) k/uL Lymphocytes # (1.0-4.8) k/uL ABG pH 7.06 L* 7.11 L* 7.15 L* (7.35-7.45) ABG pCO2 115 H* 95 H* 99 H* (35-45) mmHg ABG pO2 55 L* 74 L 77 L (83-108) mmHg ABG HCO3 33 H 30 H 34 H (21-25) mmol/L ABG Total CO2 37 H 33 H 37 H (19-24) mmol/L ABG O2 Saturation 68.7 L 86.7 L 90.4 L (94-97) % Chloride (98-107) mmol/L Carbon Dioxide (22-30) mmol/L BUN (9-20) mg/dL Glucose (74-99) mg/dL POC Glucose (mg/dL) (75-99) mg/dL Calcium (8.4-10.2) mg/dL Ferritin (22.0-322.0) ng/mL Lactate Dehydrogenase (313-618) U/L C-Reactive Protein (<10.0) mg/L Procalcitonin (0.02-0.09) ng/mL 02/10/20 02/11/20 02/11/20 Range/Units 23:57 04:30 04:30 WBC 19.7 H (3.8-10.6) k/uL RBC 3.78 L (4.30-5.90) m/uL Hgb 11.5 L (13.0-17.5) gm/dL Hct 37.2 L (39.0-53.0) % MCHC 30.8 L (31.0-37.0) g/dL RDW 17.6 H (11.5-15.5) % Neutrophils # 18.4 H (1.3-7.7) k/uL Lymphocytes # 0.6 L (1.0-4.8) k/uL ABG pH (7.35-7.45) ABG pCO2 (35-45) mmHg ABG pO2 (83-108) mmHg ABG HCO3 (21-25) mmol/L ABG Total CO2 (19-24) mmol/L ABG O2 Saturation (94-97) % Chloride (98-107) mmol/L Carbon Dioxide (22-30) mmol/L BUN (9-20) mg/dL Glucose (74-99) mg/dL POC Glucose (mg/dL) 138 H (75-99) mg/dL Calcium (8.4-10.2) mg/dL Ferritin (22.0-322.0) ng/mL Lactate Dehydrogenase (313-618) U/L C-Reactive Protein (<10.0) mg/L Procalcitonin 7.32 H (0.02-0.09) ng/mL 02/11/20 02/11/20 02/11/20 Range/Units 04:30 04:41 06:32 WBC (3.8-10.6) k/uL RBC (4.30-5.90) m/uL Hgb (13.0-17.5) gm/dL Hct (39.0-53.0) % MCHC (31.0-37.0) g/dL RDW (11.5-15.5) % Neutrophils # (1.3-7.7) k/uL Lymphocytes # (1.0-4.8) k/uL ABG pH 7.17 L* (7.35-7.45) ABG pCO2 97 H* (35-45) mmHg ABG pO2 (83-108) mmHg ABG HCO3 36 H (21-25) mmol/L ABG Total CO2 39 H (19-24) mmol/L ABG O2 Saturation (94-97) % Chloride 97 L (98-107) mmol/L Carbon Dioxide 36 H (22-30) mmol/L BUN 33 H (9-20) mg/dL Glucose 117 H (74-99) mg/dL POC Glucose (mg/dL) 104 H (75-99) mg/dL Calcium 8.0 L (8.4-10.2) mg/dL Ferritin 928.5 H (22.0-322.0) ng/mL Lactate Dehydrogenase 929 H (313-618) U/L C-Reactive Protein 43.6 H (<10.0) mg/L Procalcitonin (0.02-0.09) ng/mL Assessment and Plan Plan: 1 acute bilateral Covid 19 pneumonia . This is a extensive pneumonia and the patient was been immunosuppressed on methotrexate for rheumatoid arthritis. this patient has been intubated on a mechanical ventilator since01/30/2020 and a chest x-ray still showing diffuse bilateral pulmonary infiltras more so on the right upper lobe. Continues to be sedated. He completed Plaquenil. He received Actemra , [id number] therapy, and the patient continues to systemic steroids. D-dimer was elevated and the patient was placed on Lovenox. LDH remains elevated. CRP and ferritin levels have improved. D-dimer also has improved. D-dimer is down to 0.9 as the patient is receiving therapeutic doses of Lovenox. On 02/11/2020, the patient remains intubated on a mechanical ventilator. There has been interval worsening in his oxygenation and this occurred specially after a brief extubation of the patient was given yesterday where he was extubated to BiPAP. Within 2 hours, the patient failed and had to be reintubated and initially was placed on pressure control and subsequently was switched to volume control and based on difficulties with ventilation and elevated peak and static pressures, the patient was placed in a prone positioning. Oxidation improved accordingly. He remains in a prone by the position within the FiO2 100% and still be gradually weaned off. Chest x-ray showed no significant changes in the diffuse but the pulmonary infiltrates per the patient remains hemodynamically stable on no pressors. He is requiring some IV fluid boluses as the patient had some increased liquidy diarrhea. He has received Plaquenil. He has received Actemra and the patient is being considered for convalescent immunoglobulin treatment. Meanwhile, I'm going to increase his IV Solu-Medrol to a dose of 60 mg a push every 6 hours. Consider a superinfection at this point in time. His working diagnosis remains Covid related pneumonia with secondary ARDS With possible superinfection. The pro-calcitonin is elevated. The white cell count is also elevated. He is having some borderline blood pressure issues and for that reason the Lasix has been stopped and the patient was given also liters of IV fluids. Antibiotics with Zosyn. He was on IV Zosyn. 2 acute hypoxic respiratory failure secondary to above, with secondary ARDS 3 episodic fever secondary to above, Recovered 4 diarrhea due to GI manifestation of Covid 19 infection, improved, and his diarrhea recurred and the patient is currently has a fecal management system in stool for C. diff is being evaluated. 6 lymphopenia secondary to Covid 19 infection, improved 7 rheumatoid arthritis maintained on methotrexate on outpatient basis as such the patient has been chronically immunosuppressed. 8 fluid overload, was being treated with IV Lasix which is currently on hold. 9 acute leukocytosis Consider a superinfection at this point in time. White cell count is elevated and the pro-calcitonin level is also elevated. Plan Continue ventilator support We'll give the patient prone positioning around 16-18 hours a day Drop down the FiO2 gradually to maintain a saturation above 90%. I was able to drop the FiO2 down to 70% at the bedside Hold Lasix Increase IV Solu Medrol 60 mg every 6 hours Stop Zosyn and switch this patient a combination of Merrem and vancomycin. I'm suspicious that she could've had a superinfection of the patient developed some leukocytosis and elevated protein calcitonin levels Drop the Lovenox dose to prophylactic dose of 40 mg subcu every 24 hours and the d-dimer is improved Check sputum Gram stain and culture. Check blood cultures Consider convalescent immunoglobulin treatment for Covid 19 pneumonia and this will be investigated and hopefully will be able to get this to the patient Contacted the daughter and explained to her the situation We'll follow Further recommendations are to follow based on his progress. This is a critically care evaluation that was done and morning 30 minutes. Time with Patient: Greater than 30
[2020-02-11] MEDS: VANCOMYCIN 1,750 MG in SODIUM CHLORIDE 0.9% 500 ML 500 ML IVPB SCH (15:39)
[2020-02-11] MEDS: MEROPENEM 1 GM in SODIUM CHLORIDE 0.9% 100 ML IVPB SCH (16:23)
--- NOTE | 2020-02-11 17:20 | P.PN ---
Subjective Progress Note Date: 02/11/20 Principal diagnosis: COVID 19 64-year-old male was admitted for acute hypoxic respiratory failure secondary to COVID 19 diagnosis. He was started on hydroxychloroquine, Rocephin and doxycycline along with albuterol inhaler and placed on droplet precautions. He was started on low-dose IV steroids and given supplemental O2 maintain maintain O2 saturation greater than 92%. He was initially on 6 L nasal cannula which progressively increased to 15 L high flow. Awake proning was attempted without much relief. Patient continued to deteriorate and pulmonology was consulted. Pulmonology recommended transfer to ICU for closer monitoring on 01/29/2020. He was intubated on 01/30/2020 overnight. He received 2 doses of Tocolizumab on February 01 and February 02. He continues to be intubated. Patient was seen and examined in the morning. Trial of extubation performed yesterday, transitioned to BiPAP but respiratory status continued to worsen and patient needed to be reintubated. Patient was placed on prone position overnight. Rate is at 32. Tidal volume 400. FiO2 100 %. PEEP is at 18. Chest x-ray remained stable. Stool for C. diff sent due to diarrhea. D-dimer e levated at 1.6. Pro-calcitonin, CRP and LDH all increased today. Discussed with Dr. Louise, plans to check if patient would be a candidate for plasma therapy. Objective - Vital Signs Vital signs: Vital Signs Temp 95.5 F L 02/11/20 12:00 Pulse 88 02/11/20 15:00 Resp 33 H 02/11/20 15:00 BP 91/58 02/11/20 11:30 Pulse Ox 99 02/11/20 15:00 Intake & Output 02/10/20 02/11/20 02/11/20 18:59 06:59 18:59 Intake Total 877.161 480.419 7058.571 Output Total 2690 1101 640 Balance -1812.839 -310.239 941.571 Weight 100.7 kg 99.7 kg 99.7 kg Intake: IV 276 376 307 Normal Saline Pressure 36 36 27 Bag Piperacillin-Tazobactam 3 100 100 .375 gm In Sodium Chloride 0.9% 100 ml @ 25 mls/hr IVPB Q8HR [facility] Rx# :[id number] Sodium Chloride 0.9% 1, 240 240 180 000 ml @ 20 mls/hr IV . Q24H [facility] Rx#:[id number] Intake, IV Titration 301.161 854.876 6152.571 Amount Cisatracurium 200 mg In 34.339 76.532 Sodium Chloride 0.9% 180 ml @ 1 MCG/KG/MIN 6.042 mls/hr IV .Q24H [facility] Rx#: [id number] Dexmedetomidine/0.9% NaCl 9.231 (Pmx) 400 mcg In Empty Bag 1 bag @ Titrate IV . Q0M [facility] Rx#:[id number] Propofol 1,000 mg In 152.376 292.140 198.039 Empty Bag 1 bag @ Titrate IV .Q0M [facility] Rx#: [id number] Sodium Chloride 0.9% 1, 1000 000 ml @ 999 mls/hr IV . Q1H1M [facility] Rx#:[id number] fentaNYL (PF) 2,500 mcg 139.554 88.282 In Sodium Chloride 0.9% 200 ml @ 1.5 MCG/KG/HR 15 .69 mls/hr IV .[id number] [facility] Rx#:[id number] Tube Feeding 270 0 0 Other 30 Output: Gastric Drainage 250 Urine 2690 851 640 Other: Voiding Method Indwelling Catheter Indwelling Catheter Indwelling Catheter ABP, PAP, CO, CI - Last Documented Arterial Blood Pressure 105/58 - Exam General: [non toxic], [intubated], [appears at stated age] Derm: [warm], [dry], [fullness of the neck with slight crepitus] Head: [atraumatic], [normocephalic], [symmetric] Eyes: [EOMI], [no lid lag], [anicteric sclera] Mouth: [no lip lesion], [mucus membranes moist] Cardiovascular: [S1S2 reg], [no murmur], [positive DP pulse bilateral], Lungs: [Coarse breath sounds bilateral], [no rhonchi, no rales] , [no accessory muscle use] Abdominal: [soft], [ nontender to palpation], [decreased bowel sounds], [no appreciable organomegaly] Ext: [no gross muscle atrophy], [no edema], [no contractures] Neuro: [Unable to determine] Psych: [Unable to determine] - Labs CBC & Chem 7: 02/11/20 04:30 02/11/20 04:30 Labs: Abnormal Lab Results - Last 24 Hours (Table) 02/10/20 02/10/20 02/10/20 Range/Units 17:29 17:53 18:34 WBC (3.8-10.6) k/uL RBC (4.30-5.90) m/uL Hgb (13.0-17.5) gm/dL Hct (39.0-53.0) % MCHC (31.0-37.0) g/dL RDW (11.5-15.5) % Neutrophils # (1.3-7.7) k/uL Lymphocytes # (1.0-4.8) k/uL ABG pH 7.02 L* 7.06 L* (7.35-7.45) ABG pCO2 >120 H* 115 H* (35-45) mmHg ABG pO2 67 L 55 L* (83-108) mmHg ABG HCO3 33 H (21-25) mmol/L ABG Total CO2 37 H (19-24) mmol/L ABG O2 Saturation 77.9 L 68.7 L (94-97) % Chloride (98-107) mmol/L Carbon Dioxide (22-30) mmol/L BUN (9-20) mg/dL Glucose (74-99) mg/dL POC Glucose (mg/dL) 217 H (75-99) mg/dL Calcium (8.4-10.2) mg/dL Ferritin (22.0-322.0) ng/mL Lactate Dehydrogenase (313-618) U/L C-Reactive Protein (<10.0) mg/L Procalcitonin (0.02-0.09) ng/mL 02/10/20 02/10/20 02/10/20 Range/Units 19:54 23:54 23:57 WBC (3.8-10.6) k/uL RBC (4.30-5.90) m/uL Hgb (13.0-17.5) gm/dL Hct (39.0-53.0) % MCHC (31.0-37.0) g/dL RDW (11.5-15.5) % Neutrophils # (1.3-7.7) k/uL Lymphocytes # (1.0-4.8) k/uL ABG pH 7.11 L* 7.15 L* (7.35-7.45) ABG pCO2 95 H* 99 H* (35-45) mmHg ABG pO2 74 L 77 L (83-108) mmHg ABG HCO3 30 H 34 H (21-25) mmol/L ABG Total CO2 33 H 37 H (19-24) mmol/L ABG O2 Saturation 86.7 L 90.4 L (94-97) % Chloride (98-107) mmol/L Carbon Dioxide (22-30) mmol/L BUN (9-20) mg/dL Glucose (74-99) mg/dL POC Glucose (mg/dL) 138 H (75-99) mg/dL Calcium (8.4-10.2) mg/dL Ferritin (22.0-322.0) ng/mL Lactate Dehydrogenase (313-618) U/L C-Reactive Protein (<10.0) mg/L Procalcitonin (0.02-0.09) ng/mL 02/11/20 02/11/20 02/11/20 Range/Units 04:30 04:30 04:30 WBC 19.7 H (3.8-10.6) k/uL RBC 3.78 L (4.30-5.90) m/uL Hgb 11.5 L (13.0-17.5) gm/dL Hct 37.2 L (39.0-53.0) % MCHC 30.8 L (31.0-37.0) g/dL RDW 17.6 H (11.5-15.5) % Neutrophils # 18.4 H (1.3-7.7) k/uL Lymphocytes # 0.6 L (1.0-4.8) k/uL ABG pH (7.35-7.45) ABG pCO2 (35-45) mmHg ABG pO2 (83-108) mmHg ABG HCO3 (21-25) mmol/L ABG Total CO2 (19-24) mmol/L ABG O2 Saturation (94-97) % Chloride 97 L (98-107) mmol/L Carbon Dioxide 36 H (22-30) mmol/L BUN 33 H (9-20) mg/dL Glucose 117 H (74-99) mg/dL POC Glucose (mg/dL) (75-99) mg/dL Calcium 8.0 L (8.4-10.2) mg/dL Ferritin 928.5 H (22.0-322.0) ng/mL Lactate Dehydrogenase 929 H (313-618) U/L C-Reactive Protein 43.6 H (<10.0) mg/L Procalcitonin 7.32 H (0.02-0.09) ng/mL 02/11/20 02/11/20 Range/Units 04:41 06:32 WBC (3.8-10.6) k/uL RBC (4.30-5.90) m/uL Hgb (13.0-17.5) gm/dL Hct (39.0-53.0) % MCHC (31.0-37.0) g/dL RDW (11.5-15.5) % Neutrophils # (1.3-7.7) k/uL Lymphocytes # (1.0-4.8) k/uL ABG pH 7.17 L* (7.35-7.45) ABG pCO2 97 H* (35-45) mmHg ABG pO2 (83-108) mmHg ABG HCO3 36 H (21-25) mmol/L ABG Total CO2 39 H (19-24) mmol/L ABG O2 Saturation (94-97) % Chloride (98-107) mmol/L Carbon Dioxide (22-30) mmol/L BUN (9-20) mg/dL Glucose (74-99) mg/dL POC Glucose (mg/dL) 104 H (75-99) mg/dL Calcium (8.4-10.2) mg/dL Ferritin (22.0-322.0) ng/mL Lactate Dehydrogenase (313-618) U/L C-Reactive Protein (<10.0) mg/L Procalcitonin (0.02-0.09) ng/mL Assessment and Plan Assessment: Acute hypoxic respiratory failure, sepsis, COVID 19 pneumonia, possible bacterial pneumonia Diarrhea Immunocompromised secondary to methotrexate for history of rheumatoid arthritis Subcutaneous emphysema around the neck Chest x-ray remained stable, bilateral multifocal infiltrates. Catheter tip culture positive for coagulase-negative staph. Sputum culture positive for Fiordaliza albicans. Blood culture negative at 144 hours. Plans: Given the recent increase in pro-calcitonin, Zosyn is switched to meropenem. Vancomycin anatoly nued at this time. Patient continues to be on ascorbic acid. Ventilator support as per pulmonology. Continue prednisone. Infectious disease and pulmonology following. Continue to trend inflammatory markers. Check C. diff for diarrhea. Subcutaneous emphysema around his neck is improving and will be monitored.
--- NOTE | 2020-02-11 17:31 | PN ---
PROGRESS NOTE DATE OF SERVICE: 02/11/2020 REASON FOR FOLLOWUP: Pneumonia. INTERVAL HISTORY: The patient is currently afebrile. The patient is hemodynamically borderline. FiO2 is currently 60%, no significant purulent secretions through the ET or any worsening diarrhea reported by nursing staff. PHYSICAL EXAMINATION: Blood pressure 94/61 with a pulse of 92, temperature 98.1, he is 100% on 50% FIO2. General description is a middle-aged male, intubated on the vent. RESPIRATORY SYSTEM: Unlabored breathing, decreased breath sounds in the base, no wheeze. HEART: S1, S2. Regular rate and rhythm. ABDOMEN: Soft, no distention. LABS: Hemoglobin 11.5, white count 19.7, BUN of 17, creatinine 0.9. DIAGNOSTIC IMPRESSION AND PLAN: Patient with acute respiratory failure which is likely multifactorial. This patient did have a component of pneumonia Sputum culture will be repeated. Patient is covered with antibiotic in the form of meropenem and vancomycin, adjusting further based on the culture report. Overall prognosis remains to be guarded. Continue supportive care. MMODL / IJN: [id number] /
[2020-02-11 17:47] LABS: Glucose,Whole Blood 97 mg/dL (75-99)
[2020-02-11] MEDS: NOREPINEPHRINE 4 MG in SODIUM CHLORIDE 0.9% 250 ML IV SCH (19:20)
[2020-02-11] MEDS ORDERED: DEXTROSE 5% IN WATER 100 ML with AMIODARONE 150 MG IV ONE (19:44)
[2020-02-11] MEDS ORDERED: AMIODARONE 360 MG in DEXTROSE 5% IN WATER 200 ML IV ONE ×2 (19:45)
[2020-02-12] MEDS: methylPREDNISolone SOD SUCCI 125 MG/2 ML VIAL IV SCH ×5 (00:01→23:53)
[2020-02-12 00:36] LABS: Glucose,Whole Blood 144 mg/dL (75-99)
[2020-02-12] MEDS: INSULIN ASPART (NovoLOG) 100 UNIT/ML VIAL SQ SCH ×5 (00:41→23:53)
[2020-02-12] MEDS: ARTIFICIAL TEARS-HYPROMELLOSE DROPS 15 ML BTL BOTH EYES SCH ×6 (00:43→21:27)
[2020-02-12] MEDS: AMIODARONE 300 MG in DEXTROSE 5% IN WATER 250 ML IV SCH ×4 (02:16→11:58)
[2020-02-12] MEDS: PROPOFOL 1,000 MG in EMPTY BAG 1 BAG IV SCH ×7 (02:17→21:21)
[2020-02-12 05:22] LABS: ABG Base Excess 6.1 mmol/L; ABG HCO3 35 mmol/L (21-25); ABG Oxygen Saturation 98.6 % (94-97); ABG PO2 129 mmHg (83-108); ABG TCO2 37 mmol/L (19-24); Allen Test Performed? Yes
[2020-02-12 05:24] LABS: ABG PH 7.18 (7.35-7.45)
[2020-02-12 05:38] LABS: Anisocytosis Slight; HCT 39.9 % (39.0-53.0); HGB 11.9 gm/dL (13.0-17.5); Hypochromasia Marked; MCH 29.8 pg (25.0-35.0); MCHC 29.9 g/dL (31.0-37.0); MCV 99.6 fL (80.0-100.0); Macrocytosis Slight; Mean Platelet Volume 9.3; Platelet Count 172 k/uL (150-450); RBC 4.01 m/uL (4.30-5.90); RDW 17.2 % (11.5-15.5); WBC 16.9 k/uL (3.8-10.6)
[2020-02-12 05:43] LABS: C Reactive Protein 41.1 mg/L (<10.0)
[2020-02-12] MEDS: fentaNYL (PF) 2,500 MCG in SODIUM CHLORIDE 0.9% 200 ML IV SCH ×2 (05:45→20:00)
[2020-02-12] MEDS: VANCOMYCIN 1,750 MG in SODIUM CHLORIDE 0.9% 500 ML 500 ML IVPB SCH ×2 (05:55→18:43)
[2020-02-12 06:13] LABS: Glucose,Whole Blood 142 mg/dL (75-99)
--- NOTE | 2020-02-12 06:31 | XR ---
EXAMINATION TYPE: XR chest 1V portable DATE OF EXAM: 02/12/2020 CLINICAL HISTORY: Difficulty breathing progress study. TECHNIQUE: Single AP portable upright view of the chest is obtained. COMPARISON: Chest x-ray from one day earlier and older studies. FINDINGS: Stable endotracheal and orogastric tubes. Redemonstration of overlying subcutaneous emphys lyn along with bibasilar opacities. No new pneumothorax seen. Partial silhouetting left hemidiaphragm redemonstrated. Cardiac silhouette size stable and within normal limits with atherosclerotic change aortic knob. Osseous structures are intact. IMPRESSION: Overall stable findings, chronic parenchymal changes with bibasilar acute infiltrate an d/or atelectasis and overlying subcutaneous emphysema all redemonstrated.
[2020-02-12] MEDS: ENOXAPARIN 40 MG/0.4 ML SYRINGE SQ SCH (08:41)
[2020-02-12] MEDS: CHLORHEXIDINE GLUCONATE 15 ML CUP MUCOUS MEM SCH ×2 (08:42→21:27)
[2020-02-12] MEDS: ZINC SULFATE 220 MG CAP PO SCH (08:42)
[2020-02-12] MEDS: ASCORBIC ACID 500 MG TAB OG-TUBE SCH ×2 (08:42→21:27)
[2020-02-12] MEDS: PANTOPRAZOLE 40 MG/10 ML VIAL IVP SCH (08:45)
[2020-02-12] MEDS: MEROPENEM 1 GM in SODIUM CHLORIDE 0.9% 100 ML IVPB SCH ×4 (08:45→16:39)
[2020-02-12 08:52] LABS: African American GFR (CKD) >90 (>60 ml/min/1.73 sqM); Anion Gap 4 mmol/L; Blood Urea Nitrogen 38 mg/dL (9-20); Calcium 8.4 mg/dL (8.4-10.2); Carbon Dioxide 32 mmol/L (22-30); Chloride 103 mmol/L (98-107); Glucose 160 mg/dL (74-99); Non-African American GFR(CKD) >90 (>60 ml/min/1.73 sqM); Potassium 4.8 mmol/L (3.5-5.1); Sodium 139 mmol/L (137-145)
[2020-02-12] MEDS: ALBUTEROL HFA INHALER INHALATION SCH ×4 (09:00→19:35)
[2020-02-12] MEDS: CISATRACURIUM 200 MG in SODIUM CHLORIDE 0.9% 180 ML IV SCH (10:19)
--- NOTE | 2020-02-12 10:27 | PN ---
PROGRESS NOTE DATE OF SERVICE: 02/10/2020 REASON FOR FOLLOWUP: Pneumonia. INTERVAL HISTORY: The patient has been extubated this morning; however, the patient is with respiratory distress, currently on the BiPAP and is hypoxic. The patient is lethargic and unable to provide any history. Hemodynamically stable. Not on any pressor support. No diarrhea reported by the nursing staff. The patient is still positive to provide any history. PHYSICAL EXAMINATION: Blood pressure 135/70, pulse of 79, temperature 99, he is 99% on BiPAP. General description is a middle-aged male, lying in bed in mild respiratory distress. LUNGS: Unlabored breathing. Coarse breath sounds bilaterally. HEART: S1, S2. Tachycardic. ABDOMEN: Soft, no distention. LABS: Hemoglobin is 12.8, white count 9.0, BUN of 24, creatinine 0.56. DIAGNOSTIC IMPRESSION AND PLAN: 1. Patient with acute COVID-19 pneumonia with secondary respiratory failure for which the patient completed his Plaquenil therapy, currently Solu-Medrol, continue with concern for possible aspiration pneumonitis, covered with Zosyn. Will monitor clinical course closely. 2. Patient with a catheter culture positive with Staph, possibly contamination. Will order for a followup blood cultures and monitor clinical course closely. MMODL / IJN: [id number] /
[2020-02-12 10:59] LABS: Ferritin 339.9 ng/mL (22.0-322.0)
[2020-02-12 11:51] LABS: ABG Base Excess 6.5 mmol/L; ABG HCO3 34 mmol/L (21-25); ABG Oxygen Saturation 96.7 % (94-97); ABG PH 7.24 (7.35-7.45); ABG PO2 86 mmHg (83-108); ABG TCO2 36 mmol/L (19-24); Allen Test Performed? Yes
[2020-02-12 12:03] LABS: Glucose,Whole Blood 137 mg/dL (75-99)
[2020-02-12 12:05] LABS: ABG PCO2 79 mmHg (35-45)
[2020-02-12] MEDS: NOREPINEPHRINE 4 MG in SODIUM CHLORIDE 0.9% 250 ML IV SCH (12:09)
--- NOTE | 2020-02-12 14:52 | P.PN ---
Subjective Progress Note Date: 02/12/20 This is a 64-year-old male patient with history of rheumatoid arthritis maintained on methotrexate on outpatient basis was hospitalized for acute Covid 19 pneumonia. The patient was originally admitted to the hospital on 01/22/2020, and back then I was involved in his care and I saw him in consultation as the patient was becoming progressively more hypoxemic. He ultimately required intubation mechanical ventilation. The patient developed worsening in pneumonia and subsequent ARDS related to Covid 19 infection. He was intubated on 01/30/2020 and his been intubated since. During the course of his treatment, the patient was maintained on mechanical ventilator sedated she is with a combination of Plaquenil and systemic steroids and subsequently the patient also received 2 doses of tocilizumab on 02/01 on 02/03/2020.. The patient has been kept on mechanical ventilator on assist control mode at the rate of 30 with a tidal volume of 450 and FiO2 of 50% with a PEEP of 15. He has required a combination of propofol and fentanyl for sedation and propofol is running at 60 mcg/kg per minute and fentanyl is running at 1.5 mcg/kg/h. His chest x-ray continues to show left basilar airspace disease although there has been some improvement in aeration in the right lung. There is still evidence of subcutaneous emphysema in his neck area bilaterally. ET tube remains in good location. As mentioned earlier, the patient completed Plaquenil and he remains on vitamin C and zinc sulfate. He remains on IV Solu-Medrol 40 mg every 8 hours and the patient is also on empiric antibiotic coverage with IV Zosyn. His sputum is shown Fiordaliza albicans. His overall inflammatory markers showed a d- dimer of 0.9 which has gradually dropped from as high as 2.09 and the patient has been on Lovenox 100 mg subcu every 12 hours. The patient has also demonstrated a high LDH which has remained high and the CRP and the ferritin have gradually improved during the course of the treatment. His interleukin-6 level was 15 on 02/04/2020. On today's evaluation of 02/09/2020, the patient remains sedated with propofol at 60 g per KG per minute and the patient is also on fentanyl. The patient is on no paralytics. He is on assist control mode with a PEEP of 15 and a tidal volume of 450 and FiO2 of 50% with a rate of 30. The blood gases from today showed a pH of 7.4 with a pCO2 55 and a pO2 of 80. The chest x-ray findings are essentially stable and unchanged with diffuse bilateral pulmonary interstitial and alveolar infiltrates. The patient has developed significant amount of fluid overload. His fluid balance has been extensively negative in the order of 2.1 L on a daily basis at least and he has developed significant edema in lower extremities. His weight is up 204 kg which is 11 kg higher compared to his admission day. On today's evaluation of 02/10/2020, I'm seeing this patient for a follow-up in the intensive care unit. The patient remains sedated on propofol at 30 g per KG per minute and the patient is also on fentanyl at 70 g per KG per hour.. The patient is an assist-control mode of ventilation at the rate of 30 with a tidal volume of 400 and FiO2 of 70% with a PEEP of 5. The morning blood gases showed a pH of 7.51 with a pCO2 44 and pO2 of 67. The patient has stable bila teral pulmonary infiltrates related to Covid 19 related pneumonia. Patient has completed the course of Plaquenil. The patient is afebrile. The patient is demonstrating a stable LDH level of 659 and the patient's C-reactive protein is less than 5. BUN is 24 with a creatinine of 0.5. Aggressive efforts at all within normal limits. The patient is being diuresis with IV Lasix. The patient is receiving Lasix 40 mg and push every 12 hours. The patient has been negative fluid balance of 4 L over the past 24 hours. We are the process of getting this patient a sedation holiday. As were doing that, it was noted that the patient was becoming progressively more restless and asynchronous with a mechanical ventilator. This patient to a pressure control mode with a pressure control of 15, PEEP of 5, FiO2 of 70% at the rate of 22. The patient has been tolerating this setting without any major difficulties and he has become more synchronous. He has been switched to prophylactic dose of Lovenox. No other significant events otherwise for now. He is in the process of getting a sedation holiday. On 02/11/2020, the patient is being seen in follow-up in the intensive care unit. Events from yesterday were noted. The patient seems to be quite waking up reasonably well off sedation. He was given a sedation holiday. He was able to open up his eyes and follows some simple commands. Nevertheless he was found to be quite weak with the patient was unable to reach or gravel raises of the kidneys gravity. He did have a weak cough and gag. Decided to give him a trial of extubation yesterday and the patient was extubated to BiPAP. Within 2 hours post extubation, the patient failed and he had to be reintubated. Since then, the patient's condition progressively got worse. The patient was initially on a pressure control mode of ventilation. He was unable to oxygenate and ventilate well. He was switched to volume cycle and gradually PEEP was increased and based on our inability to adequately oxygen and the patient, he was phoned and placed in a prone position throughout the evening. This morning, the patient is on a volume control mode of ventilation at the rate of 32 with a tidal volume of 400 and a PEEP of 18 with an FiO2 of 100%. PH was at 7.17 with a pCO2 97 and pO2 of 104. Peak air pressures 33. Static pressure is 32. Rest x-ray remains unchanged with diffuse interstitial breath and pulmonary infiltrates. The patient received a bolus of IV fluids 1 L the patient was having increased diarrhea. Reglan and the rest of the laxative medications were discontinued and stool was sent for C. diff. He is on a maintenance appointment at the rate of 70 mL an hour. He is on propofol at 40 mg per KG per minute, fentanyl at 0.8 and Nimbex at 1 mcg/kg per minute. The patient is was sedated and suggested a mechanical ventilator at this point in time. He is receiving enteral feeding for nutritional support and he has a fecal management system regarding his ongoing diarrhea. Contacted her daughter and updated her on her father's condition. On 02/12/2020, the patient is sedated, paralyzed, intubated on a mechanical ventilator regarding code 19 related pneumonia and ARDS. The patient is in a supine body position and he was taken off the prone positioning yesterday. He is on propofol at 50 mg per KG per minute, and he is also on them back sent 1 g. He is on assist-control at the rate of 32 with a tidal volume of 400 and FiO2 of 50% with a PEEP of 18. Blood gas showed a pH of 7.47 with a pCO2 93 and pO2 129. Chest x-ray findings are essentially stable with diffuse but the pulmonary infiltrates and some subcutaneous emphysema that has remained stable. The patient was taken down to an FiO2 of 40% and the PEEP was taken down to 16. A subsequent blood gases showed a pH of 7.24 with a pCO2 of 79 and a pO2 of 86. I dropped the PEEP accordingly down to 15. He is still maintaining a saturation above 90%. He is very asynchronous with a mechanical ventilator. His peak air pressures 32. Static pressures 29. He is on IV Solu-Medrol. He is on vital high protein at the rate of 50 mL an hour for enteral feeding and nutritional support. Yesterday afternoon, the patient went into atrial fibrillation with rapid ventricular response. He was given amiodarone bolus and maintenance and subsequently converted back to normal sinus rhythm. Currently is in sinus rhythm. The patient will be taken off the amiodarone. During this atrial fi brillation, the patient became hypotensive also. He was started on norepinephrine infusion which is gradually being weaned off and the patient is currently down to 0.04 g per KG per minute of norepinephrine infusion. The patient is off Lasix. I was considering the patient was having a superinfection as the patient was having fever and the pro-calcitonin level came back at 7.32. As such I was concerned of superinfection. C. diff and the stool came back negative. The patient was covered apparently with a combination of Merrem and vancomycin as broad-spectrum antibiotics pending further cultures. Cultures were sent and there is also still pending for now. His white cell count was as high as 19.7 and currently is down to 16.9. He is afebrile for now. He remains on Lovenox for DVT prophylaxis. His d-dimer is down to 1.1. Objective - Vital Signs Vital signs: Vital Signs Temp 97.3 F L 02/12/20 12:30 Pulse 61 02/12/20 14:00 Resp 17 02/12/20 14:00 BP 91/58 02/12/20 14:00 Pulse Ox 97 02/12/20 14:00 Intake & Output 02/11/20 02/12/20 02/12/20 18:59 06:59 18:59 Intake Total 2690.423 6791.786 9798.524 Output Total 915 3135 592 Balance 1775.423 -1518.419 7531.524 Weight 99.7 kg 99.9 kg 99.9 kg Intake: IV 376 236 814 Meropenem 1 gm In Sodium 100 Chloride 0.9% 100 ml @ 200 mls/hr IVPB Q8HR [facility] Rx#:[id number] Normal Saline Pressure 36 36 24 Bag Piperacillin-Tazobactam 3 100 .375 gm In Sodium Chloride 0.9% 100 ml @ 25 mls/hr IVPB Q8HR [facility] Rx# :[id number] Sodium Chloride 0.9% 1, 240 200 190 000 ml @ 20 mls/hr IV . Q24H [facility] Rx#:[id number] Vancomycin 1,750 mg In 500 Sodium Chloride 0.9% 500 ml 500 ml @ 167 mls/hr IVPB Q12H [facility] Rx#: [id number] Intake, IV Titration 2164.423 1094.311 701.524 Amount Amiodarone 300 mg In 242.5 Dextrose 5% in Water 250 ml @ 0.5 MG/MIN 25 mls/hr IV .Q10H [facility] Rx#: [id number] Cisatracurium 200 mg In 126.379 143.548 Sodium Chloride 0.9% 180 ml @ 1 MCG/KG/MIN 6.042 mls/hr IV .Q24H [facility] Rx#: [id number] Dextrose 5% in Water 100 100 ml @ 618 mls/hr IV .Q10M [facility] with Amiodarone 150 mg Rx#:[id number] Meropenem 1 gm In Sodium 100 100 Chloride 0.9% 100 ml @ 200 mls/hr IVPB Q8HR [facility] Rx#:[id number] Norepinephrine 4 mg In 59.258 108.764 Sodium Chloride 0.9% 250 ml @ 0.05 MCG/KG/MIN 18. 993 mls/hr IV .[id number] [facility] Rx#:[id number] Propofol 1,000 mg In 296.485 293.157 206.712 Empty Bag 1 bag @ Titrate IV .Q0M [facility] Rx#: [id number] Sodium Chloride 0.9% 1, 20 000 ml @ 20 mls/hr IV . Q24H [facility] Rx#:[id number] Sodium Chloride 0.9% 1, 1000 000 ml @ 999 mls/hr IV . Q1H1M [facility] Rx#:[id number] Vancomycin 1,750 mg In 500 500 Sodium Chloride 0.9% 500 ml 500 ml @ 167 mls/hr IVPB Q12H [facility] Rx#: [id number] fentaNYL (PF) 2,500 mcg 141.559 21.896 In Sodium Chloride 0.9% 200 ml @ 1.5 MCG/KG/HR 15 .69 mls/hr IV .[id number] [facility] Rx#:[id number] Tube Feeding 150 550 210 Other 60 Output: Urine 915 1135 592 Stool 2000 Other: Voiding Method Indwelling Catheter Indwelling Catheter Indwelling Catheter ABP, PAP, CO, CI - Last Documented Arterial Blood Pressure 108/50 - Exam GENERAL EXAM: Intubated, sedated, orogastric and orotracheal tube are both in place. The patient currently is in a a supine body positioning. He is intubated on a mechanical ventilator. He is sedated and paralyzed for now. He remains uninvolved cycle control mechanical ventilation. Vent settings were mentioned above. HEAD: Normocephalic. EYES: Sluggish reaction of pupils, equal size. NOSE: Clear with pink turbinates. THROAT: Oral endotracheal and gastric tube secured in place. No erythema or exudates. NECK: No masses, no JVD. CHEST: No chest wall deformity. LUNGS: Equal air entry with few scattered rhonchi, crackles in the posterior bases. CVS: S1 and S2 normal with no audible murmur, regular rhythm. ABDOMEN: No hepatosplenomegaly, normal bowel sounds, no guarding or rigidity. SPINE: No scoliosis or deformity SKIN: No rashes CENTRAL NERVOUS SYSTEM: Sedated and paralyzed EXTREMITIES: There is significant amount of peripheral edema in all 4 e xtremities. No clubbing, no cyanosis. Peripheral pulses are intact. - Labs CBC & Chem 7: 02/12/20 05:00 02/12/20 05:00 Labs: Abnormal Lab Results - Last 24 Hours (Table) 02/12/20 02/12/20 02/12/20 Range/Units 00:35 05:00 05:00 WBC 16.9 H (3.8-10.6) k/uL RBC 4.01 L (4.30-5.90) m/uL Hgb 11.9 L (13.0-17.5) gm/dL MCHC 29.9 L (31.0-37.0) g/dL RDW 17.2 H (11.5-15.5) % D-Dimer 1.10 H (<0.60) mg/L FEU ABG pH (7.35-7.45) ABG pCO2 (35-45) mmHg ABG pO2 (83-108) mmHg ABG HCO3 (21-25) mmol/L ABG Total CO2 (19-24) mmol/L ABG O2 Saturation (94-97) % Carbon Dioxide (22-30) mmol/L BUN (9-20) mg/dL Glucose (74-99) mg/dL POC Glucose (mg/dL) 144 H (75-99) mg/dL Ferritin (22.0-322.0) ng/mL Lactate Dehydrogenase (313-618) U/L Creatine Kinase (55-170) U/L C-Reactive Protein (<10.0) mg/L 02/12/20 02/12/20 02/12/20 Range/Units 05:00 05:00 05:18 WBC (3.8-10.6) k/uL RBC (4.30-5.90) m/uL Hgb (13.0-17.5) gm/dL MCHC (31.0-37.0) g/dL RDW (11.5-15.5) % D-Dimer (<0.60) mg/L FEU ABG pH 7.18 L* (7.35-7.45) ABG pCO2 93 H* (35-45) mmHg ABG pO2 129 H (83-108) mmHg ABG HCO3 35 H (21-25) mmol/L ABG Total CO2 37 H (19-24) mmol/L ABG O2 Saturation 98.6 H (94-97) % Carbon Dioxide 32 H (22-30) mmol/L BUN 38 H (9-20) mg/dL Glucose 160 H (74-99) mg/dL POC Glucose (mg/dL) (75-99) mg/dL Ferritin 339.9 H (22.0-322.0) ng/mL Lactate Dehydrogenase 801 H (313-618) U/L Creatine Kinase 35 L (55-170) U/L C-Reactive Protein 41.1 H (<10.0) mg/L 02/12/20 02/12/20 02/12/20 Range/Units 06:11 11:49 12:01 WBC (3.8-10.6) k/uL RBC (4.30-5.90) m/uL Hgb (13.0-17.5) gm/dL MCHC (31.0-37.0) g/dL RDW (11.5-15.5) % D-Dimer (<0.60) mg/L FEU ABG pH 7.24 L (7.35-7.45) ABG pCO2 79 H* (35-45) mmHg ABG pO2 (83-108) mmHg ABG HCO3 34 H (21-25) mmol/L ABG Total CO2 36 H (19-24) mmol/L ABG O2 Saturation (94-97) % Carbon Dioxide (22-30) mmol/L BUN (9-20) mg/dL Glucose (74-99) mg/dL POC Glucose (mg/dL) 142 H 137 H (75-99) mg/dL Ferritin (22.0-322.0) ng/mL Lactate Dehydrogenase (313-618) U/L Creatine Kinase (55-170) U/L C-Reactive Protein (<10.0) mg/L Microbiology - Last 24 Hours (Table) 02/11/20 16:21 Gram Stain - Preliminary Sputum Sputum Culture - Preliminary 02/10/20 16:15 Blood Culture - Preliminary Blood No Growth after 24 hours Assessment and Plan Plan: 1 acute bilateral Covid 19 pneumonia . This is a extensive pneumonia and the patient was been immunosuppressed on methotrexate for rheumatoid arthritis. this patient has been intubated on a mechanical ventilator since 01/30/2020 and a chest x-ray still showing diffuse bilateral pulmonary infiltras more so on the right upper lobe. Continues to be sedated. He completed Plaquenil. He received Actemra , [id number] therapy, and the patient continues to systemic steroids. D-dimer was elevated and the patient was placed on Lovenox. LDH remains elevated. CRP and ferritin levels have improved. D-dimer also has improved. D-dimer is down to 0.9 as the patient is receiving therapeutic doses of Lovenox which ultimately got switched to prophylactic dose. On 02/09/2020, the patient remains sedated and paralyzed on a mechanical ventilator. Chest x-ray findings are essentially unchanged. We were able to cut down the PEEP gradually down to 15 cm of water on today's evaluation with an FiO2 as low as 40%. Peak and static pressures remains quite elevated. The patient remains on IV Solu-Medrol. Antibiotics have been broadened in consultation for a superinfection and the patient had elevation in the white cell count and pro-calcitonin levels. In the interim, the patient had a bout of atrial fibrillation with a ventricular response which recovered and the patient is back to normal sinus rhythm. The patient remains sedated and paralyzed for now. He failed brief extubation on 02/10/2020 and his been reintubated accordingly. Stool for C. diff is been negative as the patient was having some liquidy BMs. He is being looked into convalescent immunoglobulin 2 acute hypoxic respiratory failure secondary to above, with secondary ARDS 3 episodic fever secondary to above, Recovered 4 diarrhea due to GI manifestation of Covid 19 infection, improved, and his diarrhea recurred and the patient is currently has a fecal management system in stool for C. diff is being evaluated. 6 lymphopenia secondary to Covid 19 infection, improved 7 rheumatoid arthritis maintained on methotrexate on outpatient basis as such the patient has been chronically immunosuppressed. 8 fluid overload, was being treated with IV Lasix which is currently on hold. 9 acute leukocytosis Consider a superinfection at this point in time. White cell count is elevated and the pro-calcitonin level is also elevated.The white cell count is improving and the patient's Pronestyl level was elevated. The patient was placed on a combination of meropenem and vancomycin. 10 episode of atrial fibrillation with RVR, recovered and the patient is back to normal sinus rhythm. Requiring low dose norepinephrine infusion for blood pressure control. Plan Continue ventilator support Keep the patient in supine positioning PEEP has been drop down to 15 FiO2 has been drop down to 40% keep the IV Lasix on hold Wean off pressors as the patient is on low dose of norepinephrine Discontinue the amiodarone Keep the Lovenox as a prophylactic dose Continue the broad-spectrum antibiotics including metoprolol vancomycin Consider convalescent immunoglobulin treatment Continue the supportive care including sedation, paralytics and enteral feeding for nutritional support We'll continue to follow Further recommendations are to follow based on his progress. This is a c ritically care evaluation that was done and morning 30 minutes. Time with Patient: Greater than 30
[2020-02-12] MEDS: SODIUM CHLORIDE 0.9% 1,000 ML IV SCH ×2 (16:40→16:45)
--- NOTE | 2020-02-12 17:05 | P.PN ---
Subjective Progress Note Date: 02/12/20 Principal diagnosis: COVID 19 64-year-old male was admitted for acute hypoxic respiratory failure secondary to COVID 19 diagnosis. He was started on hydroxychloroquine, Rocephin and doxycycline along with albuterol inhaler and placed on droplet precautions. He was started on low-dose IV steroids and given supplemental O2 maintain maintain O2 saturation greater than 92%. He was initially on 6 L nasal cannula which progressively increased to 15 L high flow. Awake proning was attempted without much relief. Patient continued to deteriorate and pulmonology was consulted. Pulmonology recommended transfer to ICU for closer monitoring on 01/29/2020. He was intubated on 01/30/2020 overnight. He received 2 doses of Tocolizumab on February 01 and February 02. He continues to be intubated. There was some question of constipation for which he was given lactulose. He had multiple episodes of diarrhea after that. Patient was noted to be in A. fib with RVR on 02/11/2020. Cardiology was consulted and he was started on a amiodarone drip. He continues to be intubated. Patient was seen and examined in the morning. Rate is at 32. Tidal volume 400. FiO2 50 %. PEEP is at 18. Chest x-ray remained stable. Discussed with Dr. Louise, plans to check if patient would be a candidate for plasma therapy. Patient went into A. fib with RVR yesterday and started on amiodarone drip. Currently sinus rhythm. He continues to be on norepinephrine drip to maintain mean arterial pressure greater than 75. Leukocytosis of 16.9. D-dimer improving to 1.1. CRP steady at 41.1. LDH improving to 801. Pro-calcitonin greatly elevated at 7.32. C. diff negative. Objective - Vital Signs Vital signs: Vital Signs Temp 97.9 F 02/12/20 15:30 Pulse 65 02/12/20 16:00 Resp 32 H 02/12/20 16:00 BP 91/58 02/12/20 16:00 Pulse Ox 100 02/12/20 16:00 Intake & Output 02/11/20 02/12/20 02/12/20 18:59 06:59 18:59 Intake Total 2690.423 4876.121 8381.503 Output Total 915 3135 772 Balance 1775.423 -4791.997 9321.503 Weight 99.7 kg 99.9 kg 99.9 kg Intake: IV 376 236 860 Meropenem 1 gm In Sodium 100 Chloride 0.9% 100 ml @ 200 mls/hr IVPB Q8HR [facility] Rx#:[id number] Normal Saline Pressure 36 36 30 Bag Piperacillin-Tazobactam 3 100 .375 gm In Sodium Chloride 0.9% 100 ml @ 25 mls/hr IVPB Q8HR [facility] Rx# :[id number] Sodium Chloride 0.9% 1, 240 200 230 000 ml @ 20 mls/hr IV . Q24H [facility] Rx#:[id number] Vancomycin 1,750 mg In 500 Sodium Chloride 0.9% 500 ml 500 ml @ 167 mls/hr IVPB Q12H [facility] Rx#: [id number] Intake, IV Titration 2164.423 1094.311 819.503 Amount Amiodarone 300 mg In 242.5 Dextrose 5% in Water 250 ml @ 0.5 MG/MIN 25 mls/hr IV .Q10H [facility] Rx#: [id number] Cisatracurium 200 mg In 126.379 143.548 Sodium Chloride 0.9% 180 ml @ 1 MCG/KG/MIN 6.042 mls/hr IV .Q24H [facility] Rx#: [id number] Dextrose 5% in Water 100 100 ml @ 618 mls/hr IV .Q10M [facility] with Amiodarone 150 mg Rx#:[id number] Meropenem 1 gm In Sodium 100 100 Chloride 0.9% 100 ml @ 200 mls/hr IVPB Q8HR [facility] Rx#:[id number] Norepinephrine 4 mg In 59.258 133.455 Sodium Chloride 0.9% 250 ml @ 0.05 MCG/KG/MIN 18. 993 mls/hr IV .[id number] [facility] Rx#:[id number] Propofol 1,000 mg In 296.485 293.157 300.000 Empty Bag 1 bag @ Titrate IV .Q0M [facility] Rx#: [id number] Sodium Chloride 0.9% 1, 20 000 ml @ 20 mls/hr IV . Q24H [facility] Rx#:[id number] Sodium Chloride 0.9% 1, 1000 000 ml @ 999 mls/hr IV . Q1H1M [facility] Rx#:[id number] Vancomycin 1,750 mg In 500 500 Sodium Chloride 0.9% 500 ml 500 ml @ 167 mls/hr IVPB Q12H [facility] Rx#: [id number] fentaNYL (PF) 2,500 mcg 141.559 21.896 In Sodium Chloride 0.9% 200 ml @ 1.5 MCG/KG/HR 15 .69 mls/hr IV .[id number] [facility] Rx#:[id number] Tube Feeding 150 550 280 Other 60 Output: Urine 915 1135 772 Stool 2000 Other: Voiding Method Indwelling Catheter Indwelling Catheter Indwelling Catheter ABP, PAP, CO, CI - Last Documented Arterial Blood Pressure 94/47 - Exam General: [non toxic], [intubated], [appears at stated age] Derm: [warm], [dry], [fullness of the neck with slight crepitus] Head: [atraumatic], [normocephalic], [symmetric] Eyes: [EOMI], [no lid lag], [anicteric sclera] Mouth: [no lip lesion], [mucus membranes moist] Cardiovascular: [S1S2 reg], [no murmur], [positive DP pulse bilateral], Lungs: [Coarse breath sounds bilateral], [no rhonchi, no rales] , [no accessory muscle use] Abdominal: [soft], [ nontender to palpation], [decreased bowel sounds], [no appreciable organomegaly] Ext: [no gross muscle atrophy], [no edema], [no contractures] Neuro: [Unable to determine] Psych: [Unable to determine] - Labs CBC & Chem 7: 02/12/20 05:00 02/12/20 05:00 Labs: Abnormal Lab Results - Last 24 Hours (Table) 02/12/20 02/12/20 02/12/20 Range/Units 00:35 05:00 05:00 WBC 16.9 H (3.8-10.6) k/uL RBC 4.01 L (4.30-5.90) m/uL Hgb 11.9 L (13.0-17.5) gm/dL MCHC 29.9 L (31.0-37.0) g/dL RDW 17.2 H (11.5-15.5) % D-Dimer 1.10 H (<0.60) mg/L FEU ABG pH (7.35-7.45) ABG pCO2 (35-45) mmHg ABG pO2 (83-108) mmHg ABG HCO3 (21-25) mmol/L ABG Total CO2 (19-24) mmol/L ABG O2 Saturation (94-97) % Carbon Dioxide (22-30) mmol/L BUN (9-20) mg/dL Glucose (74-99) mg/dL POC Glucose (mg/dL) 144 H (75-99) mg/dL Ferritin (22.0-322.0) ng/mL Lactate Dehydrogenase (313-618) U/L Creatine Kinase (55-170) U/L C-Reactive Protein (<10.0) mg/L 02/12/20 02/12/20 02/12/20 Range/Units 05:00 05:00 05:18 WBC (3.8-10.6) k/uL RBC (4.30-5.90) m/uL Hgb (13.0-17.5) gm/dL MCHC (31.0-37.0) g/dL RDW (11.5-15.5) % D-Dimer (<0.60) mg/L FEU ABG pH 7.18 L* (7.35-7.45) ABG pCO2 93 H* (35-45) mmHg ABG pO2 129 H (83-108) mmHg ABG HCO3 35 H (21-25) mmol/L ABG Total CO2 37 H (19-24) mmol/L ABG O2 Saturation 98.6 H (94-97) % Carbon Dioxide 32 H (22-30) mmol/L BUN 38 H (9-20) mg/dL Glucose 160 H (74-99) mg/dL POC Glucose (mg/dL) (75-99) mg/dL Ferritin 339.9 H (22.0-322.0) ng/mL Lactate Dehydrogenase 801 H (313-618) U/L Creatine Kinase 35 L (55-170) U/L C-Reactive Protein 41.1 H (<10.0) mg/L 02/12/20 02/12/20 02/12/20 Range/Units 06:11 11:49 12:01 WBC (3.8-10.6) k/uL RBC (4.30-5.90) m/uL Hgb (13.0-17.5) gm/dL MCHC (31.0-37.0) g/dL RDW (11.5-15.5) % D-Dimer (<0.60) mg/L FEU ABG pH 7.24 L (7.35-7.45) ABG pCO2 79 H* (35-45) mmHg ABG pO2 (83-108) mmHg ABG HCO3 34 H (21-25) mmol/L ABG Total CO2 36 H (19-24) mmol/L ABG O2 Saturation (94-97) % Carbon Dioxide (22-30) mmol/L BUN (9-20) mg/dL Glucose (74-99) mg/dL POC Glucose (mg/dL) 142 H 137 H (75-99) mg/dL Ferritin (22.0-322.0) ng/mL Lactate Dehydrogenase (313-618) U/L Creatine Kinase (55-170) U/L C-Reactive Protein (<10.0) mg/L Microbiology - Last 24 Hours (Table) 02/11/20 16:21 Gram Stain - Preliminary Sputum Sputum Culture - Preliminary 02/10/20 16:15 Blood Culture - Preliminary Blood No Growth after 24 hours Assessment and Plan Assessment: Acute hypoxic respiratory failure, sepsis, COVID 19 pneumonia, possible bacterial pneumonia Atrial fibrillation with RVR Diarrhea Immunocompromised secondary to methotrexate for history of rheumatoid arthritis Subcutaneous emphysema around the neck Chest x-ray remained stable, bilateral multifocal infiltrates. Catheter tip culture positive for coagulase-negative staph. Sputum culture positive for Fiordaliza albicans. Blood culture negative at 144 hours. Plans: Given the recent increase in pro-calcitonin, Zosyn is switched to meropenem. Vancomycin continued at this time. Patient continues to be on ascorbic acid. Ventilator support as per pulmonology. Continue prednisone. Infectious disease and pulmonology following. Continue to trend inflammatory markers. Currently sinus rhythm. Plans: Discontinue amiodarone drip. Continue metoprolol as needed. C. diff negative. Likely related to lactulose. Subcutaneous emphysema around his neck is improving and will be monitored.
[2020-02-12 18:04] LABS: Glucose,Whole Blood 131 mg/dL (75-99)
--- NOTE | 2020-02-12 18:36 | PN ---
PROGRESS NOTE DATE OF SERVICE: 02/12/2020 REASON FOR FOLLOWUP: Pneumonia. INTERVAL HISTORY: The patient is currently afebrile. The patient is hemodynamically stable. FiO2 is currently at 40%. No significant purulent secretion through the ET or any diarrhea reported by the nursing staff. PHYSICAL EXAMINATION: Blood pressure 151/56, pulse of 81, temperature of 97.3. He is 100% on 40% FiO2. General description is a middle-aged male intubated on the vent. RESPIRATORY SYSTEM: Unlabored breathing with decreased breath sounds at the base. No wheeze. HEART: S1, S2. Regular rate and rhythm. ABDOMEN: Soft. No distention. LABS: Hemoglobin is 11.9, white count 16.9, BUN of 38, creatinine 0.86. Catheter tip is coagulase-negative Staph. Blood culture negative. Sputum currently pending. DIAGNOSTIC IMPRESSION AND PLAN: Patient with acute respiratory failure which is multifactorial in this patient with a possible component of pneumonia, possibly nosocomial. This patient recently completed treatment for his COVID-19, currently covered with vancomycin and meropenem; to continue, adjusting it further based on the culture report. Continue supportive care. MMODL / IJN: [id number] /
[2020-02-12 23:50] LABS: Glucose,Whole Blood 145 mg/dL (75-99)
[2020-02-13] MEDS: PROPOFOL 1,000 MG in EMPTY BAG 1 BAG IV SCH ×9 (00:08→23:09)
[2020-02-13] MEDS: MEROPENEM 1 GM in SODIUM CHLORIDE 0.9% 100 ML IVPB SCH ×4 (00:30→23:09)
[2020-02-13] MEDS: fentaNYL (PF) 2,500 MCG in SODIUM CHLORIDE 0.9% 200 ML IV SCH (04:45)
[2020-02-13] MEDS: NOREPINEPHRINE 4 MG in SODIUM CHLORIDE 0.9% 250 ML IV SCH ×2 (04:58→12:22)
[2020-02-13] MEDS: ARTIFICIAL TEARS-HYPROMELLOSE DROPS 15 ML BTL BOTH EYES SCH ×6 (05:01→21:26)
[2020-02-13 05:27] LABS: Anisocytosis Slight; Basophils % (A) 0 %; Eosinophils % (A) 0 %; HCT 34.6 % (39.0-53.0); HGB 10.4 gm/dL (13.0-17.5); Hypochromasia Marked; Lymphocytes # (A) 0.5 k/uL (1.0-4.8); Lymphocytes % (A) 5 %; MCH 29.7 pg (25.0-35.0); Macrocytosis Slight; Mean Platelet Volume 8.7; Monocytes # (A) 0.6 k/uL (0-1.0); Monocytes % (A) 6 %; Neutrophils # (A) 8.7 k/uL (1.3-7.7); Neutrophils % (A) 88 %; Platelet Count 162 k/uL (150-450); WBC 9.8 k/uL (3.8-10.6)
[2020-02-13 05:33] LABS: ALT 151 U/L (4-49); AST 28 U/L (17-59); African American GFR (CKD) >90 (>60 ml/min/1.73 sqM); Albumin 2.5 g/dL (3.5-5.0); Alkaline Phosphatase 83 U/L (38-126); Blood Urea Nitrogen 35 mg/dL (9-20); C Reactive Protein 13.9 mg/L (<10.0); Calcium 8.5 mg/dL (8.4-10.2); Chloride 103 mmol/L (98-107); Creatine Kinase 22 U/L (55-170); Glucose 132 mg/dL (74-99); LDH 694 U/L (313-618); Non-African American GFR(CKD) >90 (>60 ml/min/1.73 sqM); Potassium 4.4 mmol/L (3.5-5.1); Sodium 139 mmol/L (137-145); Total Bilirubin 0.3 mg/dL (0.2-1.3); Total Protein 4.8 g/dL (6.3-8.2)
[2020-02-13 05:37] LABS: Anion Gap -1 mmol/L; Carbon Dioxide 37 mmol/L (22-30)
[2020-02-13 05:38] LABS: ABG Base Excess 9.6 mmol/L; ABG HCO3 36 mmol/L (21-25); ABG Oxygen Saturation 95.1 % (94-97); ABG PH 7.29 (7.35-7.45); ABG PO2 78 mmHg (83-108); ABG TCO2 38 mmol/L (19-24); Allen Test Performed? Yes
[2020-02-13 05:39] LABS: ABG PCO2 75 mmHg (35-45)
[2020-02-13 05:56] LABS: Glucose,Whole Blood 133 mg/dL (75-99)
[2020-02-13] MEDS: VANCOMYCIN 1,750 MG in SODIUM CHLORIDE 0.9% 500 ML 500 ML IVPB SCH (06:00)
[2020-02-13] MEDS: INSULIN ASPART (NovoLOG) 100 UNIT/ML VIAL SQ SCH ×3 (06:00→17:09)
[2020-02-13] MEDS: methylPREDNISolone SOD SUCCI 125 MG/2 ML VIAL IV SCH ×4 (06:00→23:09)
[2020-02-13] MEDS: CISATRACURIUM 200 MG in SODIUM CHLORIDE 0.9% 180 ML IV SCH (06:28)
--- NOTE | 2020-02-13 07:35 | XR ---
EXAMINATION TYPE: XR chest 1V portable DATE OF EXAM: 02/13/2020 Comparison: 02/12/2020 Clinical History: 64-year-old male intubated Findings: ET tube tip at the upper margin of the medial clavicular heads. NG tube courses below the diaphragm. Heart normal size. Hyperinflation with subcutaneous emphysema extensively on both sides. No definite pneumothorax. Diffuse interstitial density persists bilaterally. Impression: 1. COPD and continued diffuse bilateral interstitial infiltrates. Similar more patchy infiltrates at the lower lungs. 2. Continued extensive subcutaneous emphysema.
[2020-02-13 07:41] LABS: ABG PCO2 93 mmHg (35-45)
[2020-02-13] MEDS: ALBUTEROL HFA INHALER INHALATION SCH ×4 (08:35→20:27)
[2020-02-13] MEDS: CHLORHEXIDINE GLUCONATE 15 ML CUP MUCOUS MEM SCH ×2 (08:58→21:25)
[2020-02-13] MEDS: PANTOPRAZOLE 40 MG/10 ML VIAL IVP SCH (08:58)
[2020-02-13] MEDS: ASCORBIC ACID 500 MG TAB OG-TUBE SCH ×2 (08:59→21:25)
[2020-02-13] MEDS: ZINC SULFATE 220 MG CAP PO SCH (08:59)
[2020-02-13] MEDS: ENOXAPARIN 40 MG/0.4 ML SYRINGE SQ SCH (08:59)
--- NOTE | 2020-02-13 10:44 | XR ---
EXAMINATION TYPE: XR chest 1V portable DATE OF EXAM: 02/13/2020 Comparison: Earlier today Clinical History: 64-year-old male central line placement Findings: Left IJ CVC tip at the mid SVC. ET tube is satisfactory. NG tube courses below the diaphragm. Extensi ve subcutaneous emphysema persists on both sides. Mild diffuse interstitial opacities also persist wi th some patchy retrocardiac opacity. No appreciable pneumothorax. Heart upper limits of normal in siz e. Impression: 1. Left IJ CVC tip in the lower SVC. 2. Continued diffuse interstitial opacities. 3. Continued extensive subcutaneous emphysema.
[2020-02-13 10:57] LABS: Ferritin 185.2 ng/mL (22.0-322.0)
[2020-02-13 12:31] LABS: Glucose,Whole Blood 135 mg/dL (75-99)
--- NOTE | 2020-02-13 15:33 | P.PN ---
Subjective Progress Note Date: 02/13/20 Principal diagnosis: COVID 19 64-year-old male was admitted for acute hypoxic respiratory failure secondary to COVID 19 diagnosis. He was started on hydroxychloroquine, Rocephin and doxycycline along with albuterol inhaler and placed on droplet precautions. He was started on low-dose IV steroids and given supplemental O2 maintain maintain O2 saturation greater than 92%. He was initially on 6 L nasal cannula which progressively increased to 15 L high flow. Awake proning was attempted without much relief. Patient continued to deteriorate and pulmonology was consulted. Pulmonology recommended transfer to ICU for closer monitoring on 01/29/2020. He was intubated on 01/30/2020 overnight. He received 2 doses of Tocolizumab on February 01 and February 02. He continues to be intubated. There was some question of constipation for which he was given lactulose. He had multiple episodes of diarrhea after that. Patient was noted to be in A. fib with RVR on 02/11/2020. Cardiology was consulted and he was started on a amiodarone drip. He continues to be intubated. Patient was seen and examined in the morning. He continues to be intubated. Rate is at 32. Tidal volume 400. FiO2 40 %. PEEP is at 10. Chest x-ray shows continued diffuse interstitial opacities and extensive subcutaneous emphysema. Currently sinus rhythm. Leukocytosis resolved. D-dimer study at 1.16. CRP decreasing to 13.9. LDH improving to 694. Pro-calcitonin greatly elevated at 7.32. ABG shows pH 7.9, pCO2 75, pO2 78, bicarbonate of 37. Objective - Vital Signs Vital signs: Vital Signs Temp 97.9 F 02/13/20 12:00 Pulse 64 02/13/20 14:30 Resp 32 H 02/13/20 14:30 BP 91/58 02/13/20 07:00 Pulse Ox 99 02/13/20 14:30 Intake & Output 02/12/20 02/13/20 02/13/20 18:59 06:59 18:59 Intake Total 2620.984 1912.009 650.53 Output Total 888 1083 595 Balance 1732.984 829.009 55.53 Weight 99.9 kg 103 kg 103 kg Intake: IV 1396 306 156 Meropenem 1 gm In Sodium 100 Chloride 0.9% 100 ml @ 200 mls/hr IVPB Q8HR [facility] Rx#:[id number] Normal Saline Pressure 36 66 36 Bag Sodium Chloride 0.9% 1, 260 240 120 000 ml @ 20 mls/hr IV . Q24H [facility] Rx#:[id number] Vancomycin 1,750 mg In 1000 Sodium Chloride 0.9% 500 ml 500 ml @ 167 mls/hr IVPB Q12H [facility] Rx#: [id number] Intake, IV Titration 944.984 686.009 294.53 Amount Amiodarone 300 mg In 242.5 Dextrose 5% in Water 250 ml @ 0.5 MG/MIN 25 mls/hr IV .Q10H [facility] Rx#: [id number] Cisatracurium 200 mg In 143.548 121.746 Sodium Chloride 0.9% 180 ml @ 1 MCG/KG/MIN 6.042 mls/hr IV .Q24H [facility] Rx#: [id number] Norepinephrine 4 mg In 172.391 Sodium Chloride 0.9% 250 ml @ 0.05 MCG/KG/MIN 18. 993 mls/hr IV .[id number] [facility] Rx#:[id number] Propofol 1,000 mg In 300.000 491.043 294.53 Empty Bag 1 bag @ Titrate IV .Q0M [facility] Rx#: [id number] fentaNYL (PF) 2,500 mcg 86.545 73.22 In Sodium Chloride 0.9% 200 ml @ 1.5 MCG/KG/HR 15 .69 mls/hr IV .[id number] [facility] Rx#:[id number] Oral 200 Tube Feeding 280 600 200 Other 120 Output: Urine 888 1083 595 Other: Voiding Method Indwelling Catheter Indwelling Catheter Indwelling Catheter ABP, PAP, CO, CI - Last Documented Arterial Blood Pressure 115/51 - Exam General: [non toxic], [intubated], [appears at stated age] Derm: [warm], [dry], [fullness of the neck with crepitus] Head: [atraumatic], [normocephalic], [symmetric] Eyes: [EOMI], [no lid lag], [anicteric sclera] Mouth: [no lip lesion], [mucus membranes moist] Cardiovascular: [S1S2 reg], [no murmur], [positive DP pulse bilateral], Lungs: [Coarse breath sounds bilateral], [no rhonchi, no rales] , [no accessory muscle use] Abdominal: [soft], [ nontender to palpation], [decreased bowel sounds], [no a ppreciable organomegaly] Ext: [no gross muscle atrophy], [2+ pitting edema in all 4 extremities], [no contractures] Neuro: [Unable to determine] Psych: [Unable to determine] - Labs CBC & Chem 7: 02/13/20 04:30 02/13/20 04:30 Labs: Abnormal Lab Results - Last 24 Hours (Table) 02/12/20 02/12/20 02/12/20 Range/Units 05:00 05:18 18:03 RBC (4.30-5.90) m/uL Hgb (13.0-17.5) gm/dL Hct (39.0-53.0) % MCHC (31.0-37.0) g/dL RDW (11.5-15.5) % Neutrophils # (1.3-7.7) k/uL Lymphocytes # (1.0-4.8) k/uL D-Dimer (<0.60) mg/L FEU ABG pH (7.35-7.45) ABG pCO2 93 H* (35-45) mmHg ABG pO2 (83-108) mmHg ABG HCO3 (21-25) mmol/L ABG Total CO2 (19-24) mmol/L Carbon Dioxide (22-30) mmol/L BUN (9-20) mg/dL Creatinine (0.66-1.25) mg/dL Glucose (74-99) mg/dL POC Glucose (mg/dL) 131 H (75-99) mg/dL ALT (4-49) U/L Lactate Dehydrogenase (313-618) U/L Creatine Kinase (55-170) U/L C-Reactive Protein (<10.0) mg/L Total Protein (6.3-8.2) g/dL Albumin (3.5-5.0) g/dL Procalcitonin 1.37 H (0.02-0.09) ng/mL 02/12/20 02/13/20 02/13/20 Range/Units 23:48 04:30 04:30 RBC 3.50 L (4.30-5.90) m/uL Hgb 10.4 L (13.0-17.5) gm/dL Hct 34.6 L (39.0-53.0) % MCHC 30.0 L (31.0-37.0) g/dL RDW 18.0 H (11.5-15.5) % Neutrophils # 8.7 H (1.3-7.7) k/uL Lymphocytes # 0.5 L (1.0-4.8) k/uL D-Dimer 1.16 H (<0.60) mg/L FEU ABG pH (7.35-7.45) ABG pCO2 (35-45) mmHg ABG pO2 (83-108) mmHg ABG HCO3 (21-25) mmol/L ABG Total CO2 (19-24) mmol/L Carbon Dioxide (22-30) mmol/L BUN (9-20) mg/dL Creatinine (0.66-1.25) mg/dL Glucose (74-99) mg/dL POC Glucose (mg/dL) 145 H (75-99) mg/dL ALT (4-49) U/L Lactate Dehydrogenase (313-618) U/L Creatine Kinase (55-170) U/L C-Reactive Protein (<10.0) mg/L Total Protein (6.3-8.2) g/dL Albumin (3.5-5.0) g/dL Procalcitonin (0.02-0.09) ng/mL 02/13/20 02/13/20 02/13/20 Range/Units 04:30 05:34 05:54 RBC (4.30-5.90) m/uL Hgb (13.0-17.5) gm/dL Hct (39.0-53.0) % MCHC (31.0-37.0) g/dL RDW (11.5-15.5) % Neutrophils # (1.3-7.7) k/uL Lymphocytes # (1.0-4.8) k/uL D-Dimer (<0.60) mg/L FEU ABG pH 7.29 L (7.35-7.45) ABG pCO2 75 H* (35-45) mmHg ABG pO2 78 L (83-108) mmHg ABG HCO3 36 H (21-25) mmol/L ABG Total CO2 38 H (19-24) mmol/L Carbon Dioxide 37 H (22-30) mmol/L BUN 35 H (9-20) mg/dL Creatinine 0.64 L (0.66-1.25) mg/dL Glucose 132 H (74-99) mg/dL POC Glucose (mg/dL) 133 H (75-99) mg/dL ALT 151 H (4-49) U/L Lactate Dehydrogenase 694 H (313-618) U/L Creatine Kinase 22 L (55-170) U/L C-Reactive Protein 13.9 H (<10.0) mg/L Total Protein 4.8 L (6.3-8.2) g/dL Albumin 2.5 L (3.5-5.0) g/dL Procalcitonin (0.02-0.09) ng/mL 02/13/20 Range/Units 12:30 RBC (4.30-5.90) m/uL Hgb (13.0-17.5) gm/dL Hct (39.0-53.0) % MCHC (31.0-37.0) g/dL RDW (11.5-15.5) % Neutrophils # (1.3-7.7) k/uL Lymphocytes # (1.0-4.8) k/uL D-Dimer (<0.60) mg/L FEU ABG pH (7.35-7.45) ABG pCO2 (35-45) mmHg ABG pO2 (83-108) mmHg ABG HCO3 (21-25) mmol/L ABG Total CO2 (19-24) mmol/L Carbon Dioxide (22-30) mmol/L BUN (9-20) mg/dL Creatinine (0.66-1.25) mg/dL Glucose (74-99) mg/dL POC Glucose (mg/dL) 135 H (75-99) mg/dL ALT (4-49) U/L Lactate Dehydrogenase (313-618) U/L Creatine Kinase (55-170) U/L C-Reactive Protein (<10.0) mg/L Total Protein (6.3-8.2) g/dL Albumin (3.5-5.0) g/dL Procalcitonin (0.02-0.09) ng/mL Microbiology - Last 24 Hours (Table) 02/12/20 05:32 Blood Culture Gram Stain - Preliminary Blood Blood Culture - Preliminary Group D Enterococcus 02/11/20 16:21 Gram Stain - Final Sputum Sputum Culture - Final Fiordaliza albicans 02/12/20 05:32 Blood Culture - Preliminary Blood No Growth after 24 hours 02/10/20 16:15 Blood Culture - Preliminary Blood No Growth after 48 hours Assessment and Plan Assessment: Acute hypoxic respiratory failure, sepsis with enterococcus bacteremia, COVID 19 pneumonia, possible bacterial pneumonia Atrial fibrillation with RVR Diarrhea Immunocompromised secondary to methotrexate for history of rheumatoid arthritis Subcutaneous emphysema around the neck Chest x-ray remained stable, bilateral multifocal infiltrates. Catheter tip culture positive for coagulase-negative staph. Sputum culture positive for Fiordaliza albicans. Blood culture positive for group D enterococcus, repeat blood culture negative at 24 hours. Plans: Given the recent increase in pro- calcitonin, Zosyn is switched to meropenem. Vancomycin continued at this time. Patient continues to be on ascorbic acid. Ventilator support as per pulmonolo gy. Continue Solu-Medrol. Infectious disease and pulmonology following. Continue to trend inflammatory markers. Currently sinus rhythm. Plans: Discontinue amiodarone drip. Continue metoprolol as needed. C. diff negative. Likely related to lactulose. Subcutaneous emphysema around his neck will be monitored.
--- NOTE | 2020-02-13 15:45 | P.PN ---
Subjective Progress Note Date: 02/13/20 This is a 64-year-old male patient with history of rheumatoid arthritis maintained on methotrexate on outpatient basis was hospitalized for acute Covid 19 pneumonia. The patient was originally admitted to the hospital on 01/22/2020, and back then I was involved in his care and I saw him in consultation as the patient was becoming progressively more hypoxemic. He ultimately required intubation mechanical ventilation. The patient developed worsening in pneumonia and subsequent ARDS related to Covid 19 infection. He was intubated on 01/30/2020 and his been intubated since. During the course of his treatment, the patient was maintained on mechanical ventilator sedated she is with a combination of Plaquenil and systemic steroids and subsequently the patient also received 2 doses of tocilizumab on 02/01 on 02/03/2020.. The patient has been kept on mechanical ventilator on assist control mode at the rate of 30 with a tidal volume of 450 and FiO2 of 50% with a PEEP of 15. He has required a combination of propofol and fentanyl for sedation and propofol is running at 60 mcg/kg per minute and fentanyl is running at 1.5 mcg/kg/h. His chest x-ray continues to show left basilar airspace disease although there has been some improvement in aeration in the right lung. There is still evidence of subcutaneous emphysema in his neck area bilaterally. ET tube remains in good location. As mentioned earlier, the patient completed Plaquenil and he remains on vitamin C and zinc sulfate. He remains on IV Solu-Medrol 40 mg every 8 hours and the patient is also on empiric antibiotic coverage with IV Zosyn. His sputum is shown Fiordaliza albicans. His overall inflammatory markers showed a d- dimer of 0.9 which has gradually dropped from as high as 2.09 and the patient has been on Lovenox 100 mg subcu every 12 hours. The patient has also demonstrated a high LDH which has remained high and the CRP and the ferritin have gradually improved during the course of the treatment. His interleukin-6 level was 15 on 02/04/2020. On today's evaluation of 02/09/2020, the patient remains sedated with propofol at 60 g per KG per minute and the patient is also on fentanyl. The patient is on no paralytics. He is on assist control mode with a PEEP of 15 and a tidal volume of 450 and FiO2 of 50% with a rate of 30. The blood gases from today showed a pH of 7.4 with a pCO2 55 and a pO2 of 80. The chest x-ray findings are essentially stable and unchanged with diffuse bilateral pulmonary interstitial and alveolar infiltrates. The patient has developed significant amount of fluid overload. His fluid balance has been extensively negative in the order of 2.1 L on a daily basis at least and he has developed significant edema in lower extremities. His weight is up 204 kg which is 11 kg higher compared to his admission day. On today's evaluation of 02/10/2020, I'm seeing this patient for a follow-up in the intensive care unit. The patient remains sedated on propofol at 30 g per KG per minute and the patient is also on fentanyl at 70 g per KG per hour.. The patient is an assist-control mode of ventilation at the rate of 30 with a tidal volume of 400 and FiO2 of 70% with a PEEP of 5. The morning blood gases showed a pH of 7.51 with a pCO2 44 and pO2 of 67. The patient has stable bila teral pulmonary infiltrates related to Covid 19 related pneumonia. Patient has completed the course of Plaquenil. The patient is afebrile. The patient is demonstrating a stable LDH level of 659 and the patient's C-reactive protein is less than 5. BUN is 24 with a creatinine of 0.5. Aggressive efforts at all within normal limits. The patient is being diuresis with IV Lasix. The patient is receiving Lasix 40 mg and push every 12 hours. The patient has been negative fluid balance of 4 L over the past 24 hours. We are the process of getting this patient a sedation holiday. As were doing that, it was noted that the patient was becoming progressively more restless and asynchronous with a mechanical ventilator. This patient to a pressure control mode with a pressure control of 15, PEEP of 5, FiO2 of 70% at the rate of 22. The patient has been tolerating this setting without any major difficulties and he has become more synchronous. He has been switched to prophylactic dose of Lovenox. No other significant events otherwise for now. He is in the process of getting a sedation holiday. On 02/11/2020, the patient is being seen in follow-up in the intensive care unit. Events from yesterday were noted. The patient seems to be quite waking up reasonably well off sedation. He was given a sedation holiday. He was able to open up his eyes and follows some simple commands. Nevertheless he was found to be quite weak with the patient was unable to reach or gravel raises of the kidneys gravity. He did have a weak cough and gag. Decided to give him a trial of extubation yesterday and the patient was extubated to BiPAP. Within 2 hours post extubation, the patient failed and he had to be reintubated. Since then, the patient's condition progressively got worse. The patient was initially on a pressure control mode of ventilation. He was unable to oxygenate and ventilate well. He was switched to volume cycle and gradually PEEP was increased and based on our inability to adequately oxygen and the patient, he was phoned and placed in a prone position throughout the evening. This morning, the patient is on a volume control mode of ventilation at the rate of 32 with a tidal volume of 400 and a PEEP of 18 with an FiO2 of 100%. PH was at 7.17 with a pCO2 97 and pO2 of 104. Peak air pressures 33. Static pressure is 32. Rest x-ray remains unchanged with diffuse interstitial breath and pulmonary infiltrates. The patient received a bolus of IV fluids 1 L the patient was having increased diarrhea. Reglan and the rest of the laxative medications were discontinued and stool was sent for C. diff. He is on a maintenance appointment at the rate of 70 mL an hour. He is on propofol at 40 mg per KG per minute, fentanyl at 0.8 and Nimbex at 1 mcg/kg per minute. The patient is was sedated and suggested a mechanical ventilator at this point in time. He is receiving enteral feeding for nutritional support and he has a fecal management system regarding his ongoing diarrhea. Contacted her daughter and updated her on her father's condition. On 02/12/2020, the patient is sedated, paralyzed, intubated on a mechanical ventilator regarding code 19 related pneumonia and ARDS. The patient is in a supine body position and he was taken off the prone positioning yesterday. He is on propofol at 50 mg per KG per minute, and he is also on them back sent 1 g. He is on assist-control at the rate of 32 with a tidal volume of 400 and FiO2 of 50% with a PEEP of 18. Blood gas showed a pH of 7.47 with a pCO2 93 and pO2 129. Chest x-ray findings are essentially stable with diffuse but the pulmonary infiltrates and some subcutaneous emphysema that has remained stable. The patient was taken down to an FiO2 of 40% and the PEEP was taken down to 16. A subsequent blood gases showed a pH of 7.24 with a pCO2 of 79 and a pO2 of 86. I dropped the PEEP accordingly down to 15. He is still maintaining a saturation above 90%. He is very asynchronous with a mechanical ventilator. His peak air pressures 32. Static pressures 29. He is on IV Solu-Medrol. He is on vital high protein at the rate of 50 mL an hour for enteral feeding and nutritional support. Yesterday afternoon, the patient went into atrial fibrillation with rapid ventricular response. He was given amiodarone bolus and maintenance and subsequently converted back to normal sinus rhythm. Currently is in sinus rhythm. The patient will be taken off the amiodarone. During this atrial fi brillation, the patient became hypotensive also. He was started on norepinephrine infusion which is gradually being weaned off and the patient is currently down to 0.04 g per KG per minute of norepinephrine infusion. The patient is off Lasix. I was considering the patient was having a superinfection as the patient was having fever and the pro-calcitonin level came back at 7.32. As such I was concerned of superinfection. C. diff and the stool came back negative. The patient was covered apparently with a combination of Merrem and vancomycin as broad-spectrum antibiotics pending further cultures. Cultures were sent and there is also still pending for now. His white cell count was as high as 19.7 and currently is down to 16.9. He is afebrile for now. He remains on Lovenox for DVT prophylaxis. His d-dimer is down to 1.1. On 02/13/20, the patient is being seen for a follow-up. The patient remains sedated and paralyzed. The patient is on a combination of propofol at 65 g and fentanyl at 0.5 g and Nimbex is running at 1 g. He remains on a mechanical ventilator. He is showing improvement in his parameters and peak and static pressures. His been also showing improvement in his overall lung compliance. This morning he is on assist control mode at the rate of 32 with a tidal volume of 400 and FiO2 of 40% and his PEEP was as high as 13 and it got gradually dropped down to 11 and currently is down to 10 cm of water. FiO2 has been also dropped down to 40%. With that, his morning blood gases showed a pH of 7.29 with a pCO2 of 75 and pO2 of 78. Peak airway pressure is 26. Vital airway pressure is 22. Chest x-ray findings and essentially showing subcutaneous emphysema which is extended and his neck and chest area. Nevertheless, there is no evidence of any pneumothorax. The patient has no significant orotracheal secretions. Blood cultures came back positive for enterococcus group D. Discussed the case with infectious disease. The patient a triple lumen catheter in the right femoral vein. This was removed and the tip was sent to cultures and the patient had another central line inserted in his left internal jugular vein. This was done successfully without any complications. The patient also has become hemodynamically stable and he is on no pressors. Antibiotic coverage including a combination of meropenem and vancomycin. He is afebrile. He is tolerating his tube feeds. No other significant events otherwise for now. Very much pleased with his improvement in his oxygenation and overall hemodynamics with current antibiotic regimen. I think decompensated being counted was related to his underlying sepsis. The white cell count is down to 9.8. Hemoglobin stable at 10.4. D-dimer is at 1.16. Objective - Vital Signs Vital signs: Vital Signs Temp 97.9 F 02/13/20 12:00 Pulse 64 02/13/20 14:30 Resp 32 H 02/13/20 14:30 BP 91/58 02/13/20 07:00 Pulse Ox 99 02/13/20 14:30 Intake & Output 02/12/20 02/13/20 02/13/20 18:59 06:59 18:59 Intake Total 2620.984 1912.009 650.53 Output Total 888 1083 595 Balance 1732.984 829.009 55.53 Weight 99.9 kg 103 kg 103 kg Intake: IV 1396 306 156 Meropenem 1 gm In Sodium 100 Chloride 0.9% 100 ml @ 200 mls/hr IVPB Q8HR [facility] Rx#:[id number] Normal Saline Pressure 36 66 36 Bag Sodium Chloride 0.9% 1, 260 240 120 000 ml @ 20 mls/hr IV . Q24H [facility] Rx#:[id number] Vancomycin 1,750 mg In 1000 Sodium Chloride 0.9% 500 ml 500 ml @ 167 mls/hr IVPB Q12H [facility] Rx#: [id number] Intake, IV Titration 944.984 686.009 294.53 Amount Amiodarone 300 mg In 242.5 Dextrose 5% in Water 250 ml @ 0.5 MG/MIN 25 mls/hr IV .Q10H [facility] Rx#: [id number] Cisatracurium 200 mg In 143.548 121.746 Sodium Chloride 0.9% 180 ml @ 1 MCG/KG/MIN 6.042 mls/hr IV .Q24H [facility] Rx#: [id number] Norepinephrine 4 mg In 172.391 Sodium Chloride 0.9% 250 ml @ 0.05 MCG/KG/MIN 18. 993 mls/hr IV .[id number] [facility] Rx#:[id number] Propofol 1,000 mg In 300.000 491.043 294.53 Empty Bag 1 bag @ Titrate IV .Q0M [facility] Rx#: [id number] fentaNYL (PF) 2,500 mcg 86.545 73.22 In Sodium Chloride 0.9% 200 ml @ 1.5 MCG/KG/HR 15 .69 mls/hr IV .[id number] [facility] Rx#:[id number] Oral 200 Tube Feeding 280 600 200 Other 120 Output: Urine 888 1083 595 Other: Voiding Method Indwelling Catheter Indwelling Catheter Indwelling Catheter ABP, PAP, CO, CI - Last Documented Arterial Blood Pressure 115/51 - Exam GENERAL EXAM: Intubated, sedated, orogastric and orotracheal tube are both in place. The patient currently is in a a supine body positioning. He is intubated on a mechanical ventilator. He is sedated and paralyzed for now. He remains uninvolved cycle control mechanical ventilation. Vent settings were men tioned above. HEAD: Normocephalic. EYES: Sluggish reaction of pupils, equal size. NOSE: Clear with pink turbinates. THROAT: Oral endotracheal and gastric tube secured in place. No erythema or exudates. NECK: No masses, no JVD. CHEST: No chest wall deformity. LUNGS: Equal air entry with few scattered rhonchi, crackles in the posterior bases. CVS: S1 and S2 normal with no audible murmur, regular rhythm. ABDOMEN: No hepatosplenomegaly, normal bowel sounds, no guarding or rigidity. SPINE: No scoliosis or deformity SKIN: No rashes CENTRAL NERVOUS SYSTEM: Sedated and paralyzed EXTREMITIES: There is significant amount of peripheral edema in all 4 extremities. No clubbing, no cyanosis. Peripheral pulses are intact. - Labs CBC & Chem 7: 02/13/20 04:30 02/13/20 04:30 Labs: Abnormal Lab Results - Last 24 Hours (Table) 02/12/20 02/12/20 02/12/20 Range/Units 05:00 05:18 18:03 RBC (4.30-5.90) m/uL Hgb (13.0-17.5) gm/dL Hct (39.0-53.0) % MCHC (31.0-37.0) g/dL RDW (11.5-15.5) % Neutrophils # (1.3-7.7) k/uL Lymphocytes # (1.0-4.8) k/uL D-Dimer (<0.60) mg/L FEU ABG pH (7.35-7.45) ABG pCO2 93 H* (35-45) mmHg ABG pO2 (83-108) mmHg ABG HCO3 (21-25) mmol/L ABG Total CO2 (19-24) mmol/L Carbon Dioxide (22-30) mmol/L BUN (9-20) mg/dL Creatinine (0.66-1.25) mg/dL Glucose (74-99) mg/dL POC Glucose (mg/dL) 131 H (75-99) mg/dL ALT (4-49) U/L Lactate Dehydrogenase (313-618) U/L Creatine Kinase (55-170) U/L C-Reactive Protein (<10.0) mg/L Total Protein (6.3-8.2) g/dL Albumin (3.5-5.0) g/dL Procalcitonin 1.37 H (0.02-0.09) ng/mL 02/12/20 02/13/20 02/13/20 Range/Units 23:48 04:30 04:30 RBC 3.50 L (4.30-5.90) m/uL Hgb 10.4 L (13.0-17.5) gm/dL Hct 34.6 L (39.0-53.0) % MCHC 30.0 L (31.0-37.0) g/dL RDW 18.0 H (11.5-15.5) % Neutrophils # 8.7 H (1.3-7.7) k/uL Lymphocytes # 0.5 L (1.0-4.8) k/uL D-Dimer 1.16 H (<0.60) mg/L FEU ABG pH (7.35-7.45) ABG pCO2 (35-45) mmHg ABG pO2 (83-108) mmHg ABG HCO3 (21-25) mmol/L ABG Total CO2 (19-24) mmol/L Carbon Dioxide (22-30) mmol/L BUN (9-20) mg/dL Creatinine (0.66-1.25) mg/dL Glucose (74-99) mg/dL POC Glucose (mg/dL) 145 H (75-99) mg/dL ALT (4-49) U/L Lactate Dehydrogenase (313-618) U/L Creatine Kinase (55-170) U/L C-Reactive Protein (<10.0) mg/L Total Protein (6.3-8.2) g/dL Albumin (3.5-5.0) g/dL Procalcitonin (0.02-0.09) ng/mL 02/13/20 02/13/20 02/13/20 Range/Units 04:30 05:34 05:54 RBC (4.30-5.90) m/uL Hgb (13.0-17.5) gm/dL Hct (39.0-53.0) % MCHC (31.0-37.0) g/dL RDW (11.5-15.5) % Neutrophils # (1.3-7.7) k/uL Lymphocytes # (1.0-4.8) k/uL D-Dimer (<0.60) mg/L FEU ABG pH 7.29 L (7.35-7.45) ABG pCO2 75 H* (35-45) mmHg ABG pO2 78 L (83-108) mmHg ABG HCO3 36 H (21-25) mmol/L ABG Total CO2 38 H (19-24) mmol/L Carbon Dioxide 37 H (22-30) mmol/L BUN 35 H (9-20) mg/dL Creatinine 0.64 L (0.66-1.25) mg/dL Glucose 132 H (74-99) mg/dL POC Glucose (mg/dL) 133 H (75-99) mg/dL ALT 151 H (4-49) U/L Lactate Dehydrogenase 694 H (313-618) U/L Creatine Kinase 22 L (55-170) U/L C-Reactive Protein 13.9 H (<10.0) mg/L Total Protein 4.8 L (6.3-8.2) g/dL Albumin 2.5 L (3.5-5.0) g/dL Procalcitonin (0.02-0.09) ng/mL 02/13/20 Range/Units 12:30 RBC (4.30-5.90) m/uL Hgb (13.0-17.5) gm/dL Hct (39.0-53.0) % MCHC (31.0-37.0) g/dL RDW (11.5-15.5) % Neutrophils # (1.3-7.7) k/uL Lymphocytes # (1.0-4.8) k/uL D-Dimer (<0.60) mg/L FEU ABG pH (7.35-7.45) ABG pCO2 (35-45) mmHg ABG pO2 (83-108) mmHg ABG HCO3 (21-25) mmol/L ABG Total CO2 (19-24) mmol/L Carbon Dioxide (22-30) mmol/L BUN (9-20) mg/dL Creatinine (0.66-1.25) mg/dL Glucose (74-99) mg/dL POC Glucose (mg/dL) 135 H (75-99) mg/dL ALT (4-49) U/L Lactate Dehydrogenase (313-618) U/L Creatine Kinase (55-170) U/L C-Reactive Protein (<10.0) mg/L Total Protein (6.3-8.2) g/dL Albumin (3.5-5.0) g/dL Procalcitonin (0.02-0.09) ng/mL Microbiology - Last 24 Hours (Table) 02/12/20 05:32 Blood Culture Gram Stain - Preliminary Blood Blood Culture - Preliminary Group D Enterococcus 02/11/20 16:21 Gram Stain - Final Sputum Sputum Culture - Final Fiordaliza albicans 02/12/20 05:32 Blood Culture - Preliminary Blood No Growth after 24 hours 02/10/20 16:15 Blood Culture - Preliminary Blood No Growth after 48 hours Assessment and Plan Plan: 1 acute bilateral Covid 19 pneumonia . This is a extensive pneumonia and the patient was been immunosuppressed on methotrexate for rheumatoid arthritis. this patient has been intubated on a mechanical ventilator since 01/30/2020 and a chest x-ray still showing diffuse bilateral pulmonary infiltras more so on the right upper lobe. Continues to be sedated. He completed Plaquenil. He received Actemra , [id number] therapy, and the patient continues to systemic steroids. D-dimer was elevated and the patient was placed on Lovenox. LDH remains elevated. CRP and ferritin levels have improved. D-dimer also has improved. D-dimer is down to 0.9 as the patient is receiving therapeutic doses of Lovenox which ultimately got switched to prophylactic dose. On 02/13/2020, the patient remains intubated on a mechanical ventilator. He shows some improvement in his oxygenation and his peak and static pressures. Lungs are more compliant. He has developed some worsening in his penis emphysema, nevertheless, there is no evidence of any pneumothorax. PEEP has been drop down to 10 FiO2 is down to 240%. He remains on IV Solu-Medrol. No fever. No chills. He got septic because of an enterococcus which is probably a line infection. The triple-lumen was removed and further place. The patient was covered with accommodation Merrem and vancomycin. White cell count is improved and the patient is hemodynamically stable on no pressors. This has translated into improvement in his oxygenation as mentioned above. Note that this patient remains sedated and paralyzed for now. He failed brief extubation on 02/10/2020 and his been reintubated accordingly. Stool for C. diff is been negative as the patient was having some liquidy BMs. He is being looked into convalescent immunoglobulin 2 acute hypoxic respiratory failure secondary to above, with secondary ARDS, details discussed above 3 episodic fever secondary to above, Recovered 4 diarrhea due to GI manifestation of Covid 19 infection, improved, and his diarrhea recurred and the patient is currently has a fecal management system in stool for C. diff is being evaluated. 6 lymphopenia secondary to Covid 19 infection, improved 7 rheumatoid arthritis maintained on methotrexate on outpatient basis as such the patient has been chronically immunosuppressed. 8 fluid overload, was being treated with IV Lasix which is currently on hold. 9 sepsis secondary to enterococcus with secondary leukocytosis and elevated and in the pro-calcitonin and hypotension. All of these abnormalities improved with antibiotic coverage as the patient is currently on a combination of meropenem and vancomycin. Triple lumen catheter was removed from the right femoral vein and was positioned in the left IJ. This is a new line that was inserted today. Meanwhile, the patient is currently off pressors. He is afebrile. Oxygenation is improving. 10 episode of atrial fibrillation with RVR, recovered and the patient is back to normal sinus rhythm. Requiring low dose norepinephrine infusion for blood pressure control. Plan Continue ventilator support and FiO2 has been drop down to 40% with a PEEP of 10. Keep the patient in supine positioning The patient has been taken off the pressors for now. Continue Merrem and vancomycin pending further cultures Discontinue the triple-lumen catheter placed with a new line in the left IJ and senna catheter tip for cultures Continue rest of the supportive care Consider convalescent immunoglobulin treatment Continue the supportive care including sedation, paralytics and enteral feeding for nutritional support We'll continue to follow Further recommendations are to follow based on his progress. I contacted the daughter and I informed that of the above-mentioned changes. This is a critically care evaluation that was done and morning 30 minutes.
[2020-02-13 16:38] LABS: Amorphous Sediment,Urine Rare /hpf; Appearance,Urine Cloudy (Clear); Bilirubin,Urine Negative (Negative); Blood,Urine Moderate (Negative); Color,Urine Yellow; Glucose,Urine (UA) Negative (Negative); Ketones,Urine Negative (Negative); Leukocyte Esterase,Urine Negative (Negative); Mucus,Urine Few /hpf; Nitrite,Urine Negative (Negative); Protein,Urine Trace (Negative); RBC,Urine 140 /hpf (0-5); Specific Gravity,Urine 1.027 (1.001-1.035); Squamous Epithelial Cell,Urine 2 /hpf (0-4); Uric Acid Crystals,Urine Occasional /hpf; Urobilinogen,Urine <2.0 mg/dL (<2.0); WBC,Urine 136 /hpf (0-5)
[2020-02-13 17:09] LABS: Glucose,Whole Blood 123 mg/dL (75-99)
--- NOTE | 2020-02-13 17:15 | P.PCN ---
Date of Procedure: 02/13/20 Preoperative Diagnosis: Covid 19 related pneumonia Postoperative Diagnosis: Same Procedure(s) Performed: Triple-lumen catheter insertion Anesthesia: local Surgeon: Lacey Louise Estimated Blood Loss (ml): 0 Pathology: none sent Condition: critical Disposition: ICU Operative Findings: Indication: Hemodynamic monitoring/Intravenous access. A time-out was completed verifying correct patient, procedure, site, positioning, and implant(s) or special equipment if applicable. The patient was placed in a dependent position appropriate for central line placement based on the vein to be cannulated. The patients left shoulder was prepped and draped in sterile fashion. 1% Lidocaine was used to anesthetize the surrounding skin area. A triple lumen 9F Cordis catheter was introduced into the left internal jugular or common femoral] vein using Seldinger technique. The catheter was threaded smoothly over the guide wire and appropriate blood return was obtained. Each lumen of the catheter was evacuated of air and flushed with sterile saline. The catheter was then sutured in place to the skin and a sterile dressing applied. Perfusion to the extremity distal to the point of catheter insertion was checked and found to be adequate. The patient tolerated the procedure well and there were no complications.
--- NOTE | 2020-02-13 17:15 | PN ---
PROGRESS NOTE DATE OF SERVICE: 02/13/2020 REASON FOR FOLLOWUP: Pneumonia and bacteremia. INTERVAL HISTORY: The patient is afebrile. The patient is hemodynamically stable, not requiring pressor support. FiO2 is currently 40%. No significant purulent secretion through the ET or any worsening diarrhea reported. PHYSICAL EXAMINATION: Blood pressure 169/73 with a pulse of 70, temperature 98.4. He is 97% on 40% FiO2. General description is a middle-aged male intubated on the vent. RESPIRATORY SYSTEM: Unlabored breathing with decreased breath sounds at the base. No wheeze. HEART: S1, S2. Regular rate and rhythm. ABDOMEN: Soft. No distention. LABS: Hemoglobin 10.4, white count 9.8 with a BUN of 35, creatinine 0.64. The blood culture is now showing group D Enterococcus. DIAGNOSTIC IMPRESSION AND PLAN: 1. Patient with acute respiratory failure which is likely multifactorial with a possible component of pneumonia. Patient is covered with meropenem. 2. Patient with a positive blood culture with group D Enterococcus, source possibly urinary versus central line, which has been discontinued. Catheter tip has been sent. As the patient developed this bacteremia while on vancomycin, high clinic suspicion for possible VRE. We will discontinue the vancomycin and start the patient on daptomycin. Blood culture will also be repeated, and we will monitor his clinical course closely. MMODL / IJN: [id number] /
[2020-02-14 01:23] LABS: Glucose,Whole Blood 133 mg/dL (75-99)
[2020-02-14] MEDS: ARTIFICIAL TEARS-HYPROMELLOSE DROPS 15 ML BTL BOTH EYES SCH ×4 (01:30→13:26)
[2020-02-14] MEDS: NOREPINEPHRINE 4 MG in SODIUM CHLORIDE 0.9% 250 ML IV SCH ×2 (01:32→08:38)
[2020-02-14] MEDS: INSULIN ASPART (NovoLOG) 100 UNIT/ML VIAL SQ SCH ×5 (01:34→23:27)
[2020-02-14] MEDS: PROPOFOL 1,000 MG in EMPTY BAG 1 BAG IV SCH ×6 (01:34→23:46)
[2020-02-14 04:41] LABS: Anisocytosis Slight; Basophils % (A) 0 %; Eosinophils # (A) 0.1 k/uL (0-0.7); Eosinophils % (A) 1 %; HCT 31.2 % (39.0-53.0); HGB 9.8 gm/dL (13.0-17.5); Hypochromasia Moderate; Lymphocytes # (A) 0.6 k/uL (1.0-4.8); Lymphocytes % (A) 11 %; MCH 30.8 pg (25.0-35.0); MCHC 31.5 g/dL (31.0-37.0); MCV 97.9 fL (80.0-100.0); Macrocytosis Slight; Mean Platelet Volume 9.5; Monocytes # (A) 0.3 k/uL (0-1.0); Monocytes % (A) 7 %; Neutrophils # (A) 4.2 k/uL (1.3-7.7); Neutrophils % (A) 80 %; Platelet Count 155 k/uL (150-450); RBC 3.19 m/uL (4.30-5.90); RDW 18.5 % (11.5-15.5); WBC 5.2 k/uL (3.8-10.6)
[2020-02-14 04:54] LABS: ALT 104 U/L (4-49); AST 21 U/L (17-59); African American GFR (CKD) >90 (>60 ml/min/1.73 sqM); Albumin 2.4 g/dL (3.5-5.0); Alkaline Phosphatase 69 U/L (38-126); Anion Gap -3 mmol/L; Blood Urea Nitrogen 35 mg/dL (9-20); C Reactive Protein <5.0 mg/L (<10.0); Calcium 8.5 mg/dL (8.4-10.2); Carbon Dioxide 35 mmol/L (22-30); Chloride 106 mmol/L (98-107); Creatine Kinase <20 U/L (55-170); Glucose 123 mg/dL (74-99); LDH 587 U/L (313-618); Non-African American GFR(CKD) >90 (>60 ml/min/1.73 sqM); Potassium 3.7 mmol/L (3.5-5.1); Sodium 138 mmol/L (137-145); Total Bilirubin 0.4 mg/dL (0.2-1.3); Total Protein 4.4 g/dL (6.3-8.2)
[2020-02-14] MEDS ORDERED: VANCOMYCIN TROUGH DUE 1 EACH MISC MISCELLANE ONE (05:00)
[2020-02-14 05:04] LABS: ABG Base Excess 9.8 mmol/L; ABG HCO3 33 mmol/L (21-25); ABG Oxygen Saturation 94.4 % (94-97); ABG PCO2 42 mmHg (35-45); ABG PO2 63 mmHg (83-108); ABG TCO2 34 mmol/L (19-24); Allen Test Performed? Yes
[2020-02-14] MEDS: fentaNYL (PF) 2,500 MCG in SODIUM CHLORIDE 0.9% 200 ML IV SCH ×2 (05:38→17:32)
[2020-02-14 05:49] LABS: Glucose,Whole Blood 134 mg/dL (75-99)
[2020-02-14] MEDS ORDERED: Potassium Replacement Protocol 1 EACH MISC MISCELLANE PRN (05:55)
[2020-02-14] MEDS ORDERED: POTASSIUM BICARBONATE/CIT AC 20 MEQ TABLET.EFF NG-TUBE SCH (06:00)
[2020-02-14] MEDS: methylPREDNISolone SOD SUCCI 125 MG/2 ML VIAL IV SCH (06:10)
--- NOTE | 2020-02-14 06:29 | XR ---
EXAMINATION TYPE: XR chest 1V portable DATE OF EXAM: 02/14/2020 HISTORY: intubated. REFERENCE: Previous study dated 02/13/2020. FINDINGS: The patient's ET tube, NG tube and left internal jugular catheter remain in place, unchange d in appearance. There is continuing subcutaneous emphysema more marked on the left than the right. There is worsening , patchy right-sided airspace disease. There is left basilar airspace disease. There are small, bilat eral effusions. IMPRESSION: WORSENING RIGHT BASILAR AIRSPACE DISEASE.
[2020-02-14] MEDS: ALBUTEROL HFA INHALER INHALATION SCH ×4 (07:12→18:49)
[2020-02-14] MEDS: MEROPENEM 1 GM in SODIUM CHLORIDE 0.9% 100 ML IVPB SCH (08:17)
[2020-02-14] MEDS: ENOXAPARIN 40 MG/0.4 ML SYRINGE SQ SCH (08:17)
[2020-02-14] MEDS: ZINC SULFATE 220 MG CAP PO SCH (08:17)
[2020-02-14] MEDS: PANTOPRAZOLE 40 MG/10 ML VIAL IVP SCH (08:17)
[2020-02-14] MEDS: CHLORHEXIDINE GLUCONATE 15 ML CUP MUCOUS MEM SCH ×2 (08:18→20:51)
[2020-02-14] MEDS: ASCORBIC ACID 500 MG TAB OG-TUBE SCH ×2 (08:18→20:51)
[2020-02-14 10:17] LABS: Ferritin 146.6 ng/mL (22.0-322.0)
[2020-02-14 12:55] LABS: Glucose,Whole Blood 115 mg/dL (75-99)
--- NOTE | 2020-02-14 13:20 | P.PN ---
Subjective Progress Note Date: 02/14/20 This is a 64-year-old male patient with history of rheumatoid arthritis maintained on methotrexate on outpatient basis was hospitalized for acute Covid 19 pneumonia. The patient was originally admitted to the hospital on 01/22/2020, and back then I was involved in his care and I saw him in consultation as the patient was becoming progressively more hypoxemic. He ultimately required intubation mechanical ventilation. The patient developed worsening in pneumonia and subsequent ARDS related to Covid 19 infection. He was intubated on 01/30/2020 and his been intubated since. During the course of his treatment, the patient was maintained on mechanical ventilator sedated she is with a combination of Plaquenil and systemic steroids and subsequently the patient also received 2 doses of tocilizumab on 02/01 on 02/03/2020.. The patient has been kept on mechanical ventilator on assist control mode at the rate of 30 with a tidal volume of 450 and FiO2 of 50% with a PEEP of 15. He has required a combination of propofol and fentanyl for sedation and propofol is running at 60 mcg/kg per minute and fentanyl is running at 1.5 mcg/kg/h. His chest x-ray continues to show left basilar airspace disease although there has been some improvement in aeration in the right lung. There is still evidence of subcutaneous emphysema in his neck area bilaterally. ET tube remains in good location. As mentioned earlier, the patient completed Plaquenil and he remains on vitamin C and zinc sulfate. He remains on IV Solu-Medrol 40 mg every 8 hours and the patient is also on empiric antibiotic coverage with IV Zosyn. His sputum is shown Fiordaliza albicans. His overall inflammatory markers showed a d- dimer of 0.9 which has gradually dropped from as high as 2.09 and the patient has been on Lovenox 100 mg subcu every 12 hours. The patient has also demonstrated a high LDH which has remained high and the CRP and the ferritin have gradually improved during the course of the treatment. His interleukin-6 level was 15 on 02/04/2020. On today's evaluation of 02/09/2020, the patient remains sedated with propofol at 60 g per KG per minute and the patient is also on fentanyl. The patient is on no paralytics. He is on assist control mode with a PEEP of 15 and a tidal volume of 450 and FiO2 of 50% with a rate of 30. The blood gases from today showed a pH of 7.4 with a pCO2 55 and a pO2 of 80. The chest x-ray findings are essentially stable and unchanged with diffuse bilateral pulmonary interstitial and alveolar infiltrates. The patient has developed significant amount of fluid overload. His fluid balance has been extensively negative in the order of 2.1 L on a daily basis at least and he has developed significant edema in lower extremities. His weight is up 204 kg which is 11 kg higher compared to his admission day. On today's evaluation of 02/10/2020, I'm seeing this patient for a follow-up in the intensive care unit. The patient remains sedated on propofol at 30 g per KG per minute and the patient is also on fentanyl at 70 g per KG per hour.. The patient is an assist-control mode of ventilation at the rate of 30 with a tidal volume of 400 and FiO2 of 70% with a PEEP of 5. The morning blood gases showed a pH of 7.51 with a pCO2 44 and pO2 of 67. The patient has stable bila teral pulmonary infiltrates related to Covid 19 related pneumonia. Patient has completed the course of Plaquenil. The patient is afebrile. The patient is demonstrating a stable LDH level of 659 and the patient's C-reactive protein is less than 5. BUN is 24 with a creatinine of 0.5. Aggressive efforts at all within normal limits. The patient is being diuresis with IV Lasix. The patient is receiving Lasix 40 mg and push every 12 hours. The patient has been negative fluid balance of 4 L over the past 24 hours. We are the process of getting this patient a sedation holiday. As were doing that, it was noted that the patient was becoming progressively more restless and asynchronous with a mechanical ventilator. This patient to a pressure control mode with a pressure control of 15, PEEP of 5, FiO2 of 70% at the rate of 22. The patient has been tolerating this setting without any major difficulties and he has become more synchronous. He has been switched to prophylactic dose of Lovenox. No other significant events otherwise for now. He is in the process of getting a sedation holiday. On 02/11/2020, the patient is being seen in follow-up in the intensive care unit. Events from yesterday were noted. The patient seems to be quite waking up reasonably well off sedation. He was given a sedation holiday. He was able to open up his eyes and follows some simple commands. Nevertheless he was found to be quite weak with the patient was unable to reach or gravel raises of the kidneys gravity. He did have a weak cough and gag. Decided to give him a trial of extubation yesterday and the patient was extubated to BiPAP. Within 2 hours post extubation, the patient failed and he had to be reintubated. Since then, the patient's condition progressively got worse. The patient was initially on a pressure control mode of ventilation. He was unable to oxygenate and ventilate well. He was switched to volume cycle and gradually PEEP was increased and based on our inability to adequately oxygen and the patient, he was phoned and placed in a prone position throughout the evening. This morning, the patient is on a volume control mode of ventilation at the rate of 32 with a tidal volume of 400 and a PEEP of 18 with an FiO2 of 100%. PH was at 7.17 with a pCO2 97 and pO2 of 104. Peak air pressures 33. Static pressure is 32. Rest x-ray remains unchanged with diffuse interstitial breath and pulmonary infiltrates. The patient received a bolus of IV fluids 1 L the patient was having increased diarrhea. Reglan and the rest of the laxative medications were discontinued and stool was sent for C. diff. He is on a maintenance appointment at the rate of 70 mL an hour. He is on propofol at 40 mg per KG per minute, fentanyl at 0.8 and Nimbex at 1 mcg/kg per minute. The patient is was sedated and suggested a mechanical ventilator at this point in time. He is receiving enteral feeding for nutritional support and he has a fecal management system regarding his ongoing diarrhea. Contacted her daughter and updated her on her father's condition. On 02/12/2020, the patient is sedated, paralyzed, intubated on a mechanical ventilator regarding code 19 related pneumonia and ARDS. The patient is in a supine body position and he was taken off the prone positioning yesterday. He is on propofol at 50 mg per KG per minute, and he is also on them back sent 1 g. He is on assist-control at the rate of 32 with a tidal volume of 400 and FiO2 of 50% with a PEEP of 18. Blood gas showed a pH of 7.47 with a pCO2 93 and pO2 129. Chest x-ray findings are essentially stable with diffuse but the pulmonary infiltrates and some subcutaneous emphysema that has remained stable. The patient was taken down to an FiO2 of 40% and the PEEP was taken down to 16. A subsequent blood gases showed a pH of 7.24 with a pCO2 of 79 and a pO2 of 86. I dropped the PEEP accordingly down to 15. He is still maintaining a saturation above 90%. He is very asynchronous with a mechanical ventilator. His peak air pressures 32. Static pressures 29. He is on IV Solu-Medrol. He is on vital high protein at the rate of 50 mL an hour for enteral feeding and nutritional support. Yesterday afternoon, the patient went into atrial fibrillation with rapid ventricular response. He was given amiodarone bolus and maintenance and subsequently converted back to normal sinus rhythm. Currently is in sinus rhythm. The patient will be taken off the amiodarone. During this atrial fi brillation, the patient became hypotensive also. He was started on norepinephrine infusion which is gradually being weaned off and the patient is currently down to 0.04 g per KG per minute of norepinephrine infusion. The patient is off Lasix. I was considering the patient was having a superinfection as the patient was having fever and the pro-calcitonin level came back at 7.32. As such I was concerned of superinfection. C. diff and the stool came back negative. The patient was covered apparently with a combination of Merrem and vancomycin as broad-spectrum antibiotics pending further cultures. Cultures were sent and there is also still pending for now. His white cell count was as high as 19.7 and currently is down to 16.9. He is afebrile for now. He remains on Lovenox for DVT prophylaxis. His d-dimer is down to 1.1. On 02/13/20, the patient is being seen for a follow-up. The patient remains sedated and paralyzed. The patient is on a combination of propofol at 65 g and fentanyl at 0.5 g and Nimbex is running at 1 g. He remains on a mechanical ventilator. He is showing improvement in his parameters and peak and static pressures. His been also showing improvement in his overall lung compliance. This morning he is on assist control mode at the rate of 32 with a tidal volume of 400 and FiO2 of 40% and his PEEP was as high as 13 and it got gradually dropped down to 11 and currently is down to 10 cm of water. FiO2 has been also dropped down to 40%. With that, his morning blood gases showed a pH of 7.29 with a pCO2 of 75 and pO2 of 78. Peak airway pressure is 26. Vital airway pressure is 22. Chest x-ray findings and essentially showing subcutaneous emphysema which is extended and his neck and chest area. Nevertheless, there is no evidence of any pneumothorax. The patient has no significant orotracheal secretions. Blood cultures came back positive for enterococcus group D. Discussed the case with infectious disease. The patient a triple lumen catheter in the right femoral vein. This was removed and the tip was sent to cultures and the patient had another central line inserted in his left internal jugular vein. This was done successfully without any complications. The patient also has become hemodynamically stable and he is on no pressors. Antibiotic coverage including a combination of meropenem and vancomycin. He is afebrile. He is tolerating his tube feeds. No other significant events otherwise for now. Very much pleased with his improvement in his oxygenation and overall hemodynamics with current antibiotic regimen. I think decompensated being counted was related to his underlying sepsis. The white cell count is down to 9.8. Hemoglobin stable at 10.4. D-dimer is at 1.16. On the morning of 02/14/2020, the patient is still sedated but not paralyzed. Noted the paralytics was discontinued yesterday. Note that the patient was improvement in lung compliance and we were able to wean down the FiO2 and a PEEP over the past 24 hours. This morning, the patient remains sedated with propofol. The patient is also on fentanyl. Propofol is running at 65 g and fentanyl is at 1.5 g. Nimbex was discontinued more than 24 hours ago. The patient is on a VC plus mode of mechanical ventilation at the rate of 20 with a tidal volume of 480 and a tidal volume of 40% with a PEEP of 5. The patient's blood gases from today showed a pH of 7.5 with a pCO2 of 42 with a p O2 of 63. Chest x-ray findings are essentially stable and the patient continues to have subcutaneous emphysema with seems to be slightly worse on the left compared to the right. There is also some patchy airspace disease in the right and some l eft basilar airspace disease which was present on previous chest x-ray findings. In terms of microbiology, the patient was found to have group D enterococcus in the blood and the patient was given a combination of Merrem and vancomycin. He is hemodynamically stable. He is afebrile. White cell count is improved. Pro- calcitonin levels have dropped. The catheter from the right groin was removed and the tip was sent for cultures and the results are still pending for now. The rest of the blood work shows a component of metabolic alkalosis with a serum bicarbonate 35. Renal function is stable with a BUN of 35 and a creatinine of 0.5. The patient's LFTs are within normal limits. Bilirubin is at 0.4. CPK is less than 20. The CRP is at less than 5. Ferritin level is down 246. The tota l protein is at 4.4 with a albumin of 2.4. Objective - Vital Signs Vital signs: Vital Signs Temp 97.2 F L 02/14/20 08:00 Pulse 53 L 02/14/20 11:00 Resp 24 02/14/20 11:00 BP 91/58 02/14/20 04:00 Pulse Ox 96 02/14/20 11:00 Intake & Output 02/13/20 02/14/20 02/14/20 18:59 06:59 18:59 Intake Total 1680.859 0897.267 407.732 Output Total 1070 2530 200 Balance 242.174 -799.733 207.732 Weight 103 kg 103.7 kg Intake: IV 312 309 178 Meropenem 1 gm In Sodium 100 Chloride 0.9% 100 ml @ 200 mls/hr IVPB Q8HR [facility] Rx#:[id number] Normal Saline Pressure 72 69 18 Bag Sodium Chloride 0.9% 1, 240 240 60 000 ml @ 20 mls/hr IV . Q24H [facility] Rx#:[id number] Intake, IV Titration 434.174 668.267 70.732 Amount Propofol 1,000 mg In 356.77 495.671 70.732 Empty Bag 1 bag @ Titrate IV .Q0M [facility] Rx#: [id number] fentaNYL (PF) 2,500 mcg 77.404 172.596 In Sodium Chloride 0.9% 200 ml @ 1.5 MCG/KG/HR 15 .69 mls/hr IV .[id number] [facility] Rx#:[id number] Oral 200 Tube Feeding 536 493 129 Other 30 60 30 Output: Urine 1070 1130 200 Stool 1400 Other: Voiding Method Indwelling Catheter Indwelling Catheter Indwelling Catheter # Voids 1 ABP, PAP, CO, CI - Last Documented Arterial Blood Pressure 121/47 - Exam GENERAL EXAM: Intubated, sedated, orogastric and orotracheal tube are both in place. The patient currently is in a a supine body positioning. He is intubated on a mechanical ventilator. He is sedated and off paralysis for now. He remains on the volume cycle control mechanical ventilation. Vent settings were mentioned above. HEAD: Normocephalic. EYES: Sluggish reaction of pupils, equal size. NOSE: Clear with pink turbinates. THROAT: Oral endotracheal and gastric tube secured in place. No erythema or exudates. NECK: No masses, no JVD. CHEST: No chest wall deformity. LUNGS: Equal air entry with few scattered rhonchi, crackles in the posterior bases. CVS: S1 and S2 normal with no audible murmur, regular rhythm. ABDOMEN: No hepatosplenomegaly, normal bowel sounds, no guarding or rigidity. SPINE: No scoliosis or deformity SKIN: No rashes CENTRAL NERVOUS SYSTEM: Sedated and paralyzed EXTREMITIES: There is significant amount of peripheral edema in all 4 extremities. No clubbing, no cyanosis. Peripheral pulses are intact. - Labs CBC & Chem 7: 02/14/20 04:30 02/14/20 04:30 Labs: Abnormal Lab Results - Last 24 Hours (Table) 02/13/20 02/13/20 02/14/20 Range/Units 16:05 17:08 01:17 RBC (4.30-5.90) m/uL Hgb (13.0-17.5) gm/dL Hct (39.0-53.0) % RDW (11.5-15.5) % Lymphocytes # (1.0-4.8) k/uL D-Dimer (<0.60) mg/L FEU ABG pH (7.35-7.45) ABG pO2 (83-108) mmHg ABG HCO3 (21-25) mmol/L ABG Total CO2 (19-24) mmol/L Carbon Dioxide (22-30) mmol/L BUN (9-20) mg/dL Creatinine (0.66-1.25) mg/dL Glucose (74-99) mg/dL POC Glucose (mg/dL) 123 H 133 H (75-99) mg/dL ALT (4-49) U/L Creatine Kinase (55-170) U/L Total Protein (6.3-8.2) g/dL Albumin (3.5-5.0) g/dL Urine Protein Trace H (Negative) Urine Blood Moderate H (Negative) Urine RBC 140 H (0-5) /hpf Urine WBC 136 H (0-5) /hpf Uric Acid Crystals Occasional H (None) /hpf Amorphous Sediment Rare H (None) /hpf Urine Mucus Few H (None) /hpf 02/14/20 02/14/20 02/14/20 Range/Units 04:30 04:30 04:30 RBC 3.19 L (4.30-5.90) m/uL Hgb 9.8 L (13.0-17.5) gm/dL Hct 31.2 L (39.0-53.0) % RDW 18.5 H (11.5-15.5) % Lymphocytes # 0.6 L (1.0-4.8) k/uL D-Dimer 1.26 H (<0.60) mg/L FEU ABG pH (7.35-7.45) ABG pO2 (83-108) mmHg ABG HCO3 (21-25) mmol/L ABG Total CO2 (19-24) mmol/L Carbon Dioxide 35 H (22-30) mmol/L BUN 35 H (9-20) mg/dL Creatinine 0.52 L (0.66-1.25) mg/dL Glucose 123 H (74-99) mg/dL POC Glucose (mg/dL) (75-99) mg/dL ALT 104 H (4-49) U/L Creatine Kinase <20 L (55-170) U/L Total Protein 4.4 L (6.3-8.2) g/dL Albumin 2.4 L (3.5-5.0) g/dL Urine Protein (Negative) Urine Blood (Negative) Urine RBC (0-5) /hpf Urine WBC (0-5) /hpf Uric Acid Crystals (None) /hpf Amorphous Sediment (None) /hpf Urine Mucus (None) /hpf 02/14/20 02/14/20 02/14/20 Range/Units 04:58 05:47 12:53 RBC (4.30-5.90) m/uL Hgb (13.0-17.5) gm/dL Hct (39.0-53.0) % RDW (11.5-15.5) % Lymphocytes # (1.0-4.8) k/uL D-Dimer (<0.60) mg/L FEU ABG pH 7.50 H (7.35-7.45) ABG pO2 63 L (83-108) mmHg ABG HCO3 33 H (21-25) mmol/L ABG Total CO2 34 H (19-24) mmol/L Carbon Dioxide (22-30) mmol/L BUN (9-20) mg/dL Creatinine (0.66-1.25) mg/dL Glucose (74-99) mg/dL POC Glucose (mg/dL) 134 H 115 H (75-99) mg/dL ALT (4-49) U/L Creatine Kinase (55-170) U/L Total Protein (6.3-8.2) g/dL Albumin (3.5-5.0) g/dL Urine Protein (Negative) Urine Blood (Negative) Urine RBC (0-5) /hpf Urine WBC (0-5) /hpf Uric Acid Crystals (None) /hpf Amorphous Sediment (None) /hpf Urine Mucus (None) /hpf Microbiology - Last 24 Hours (Table) 02/13/20 11:25 Catheter Tip Culture - Preliminary Catheter Tip 02/12/20 05:32 Blood Culture - Preliminary Blood No Growth after 48 hours 02/13/20 16:05 Urine Culture - Preliminary Urine,Voided 02/10/20 16:15 Blood Culture - Preliminary Blood No Growth after 72 hours 02/12/20 05:32 Blood Culture Gram Stain - Preliminary Blood Blood Culture - Preliminary Group D Enterococcus Assessment and Plan Plan: 1 acute bilateral Covid 19 pneumonia . This is a extensive pneumonia and the patient was been immunosuppressed on methotrexate for rheumatoid arthritis. this patient has been intubated on a mechanical ventilator since 01/30/2020 and a chest x-ray still showing diffuse bilateral pulmonary infiltras more so on the right upper lobe. Continues to be sedated. He completed Plaquenil. He received Actemra , [id number] therapy, and the patient continues to systemic steroids. D-dimer was elevated and the patient was placed on Lovenox. The patient's inflammatory markers including ferritin LDH and C-reactive protein or improved. On 02/14/2020 the patient is being seen for a follow-up. Note that he had a episodes of on successful extubation earlier this week. Since then, the patient was diagnosed having sepsis with enterococcus group D that was thought to be related to a line infection. The femoral triple-lumen was removed and the tip was sent for cultures. The patient was given a combination of metoprolol and and vancomycin. Hemodynamically improved. The oxygenation improved. Lungs are quite compliant for now. The PEEP has been weaned down to 5 and FiO2 is been weaned down to 40%. He has very compliant lungs with a peak airway pressure of around 21-22 and the static pressures are also low. The patient was taken off the paralytics. The patient will be gradually taken off the sedation. Meanwhile, to his been noted that the patient has been profoundly weak even on an earlier extubation. Creatinine is down to 0.5 indicating poor muscle mass. His hemoglobin is down to 2.4. History receiving enteral feeding for nutritional support. 2 acute hypoxic respiratory failure secondary to above, with secondary ARDS, details discussed above 3 episodic fever secondary to above, Recovered 4 diarrhea due to GI manifestation of Covid 19 infection, improved, and his diarrhea recurred and the patient is currently has a fecal management system in stool for C. diff is being evaluated. 6 lymphopenia secondary to Covid 19 infection, improved 7 rheumatoid arthritis maintained on methotrexate on outpatient basis as such the patient has been chronically immunosuppressed. 8 fluid overload, was being treated with IV Lasix which is currently on hold. 9 sepsis secondary to enterococcus with secondary leukocytosis and elevated and in the pro-calcitonin and hypotension. All of these abnormalities improved with antibiotic coverage as the patient is currently on a combination of meropenem and vancomycin. Triple lumen catheter was removed from the right femoral vein a nd was positioned in the left IJ. This is a new line that was inserted today. Meanwhile, the patient is currently off pressors. He is afebrile. Oxygenation is improving. 10 episode of atrial fibrillation with RVR, recovered and the patient is back to normal sinus rhythm Plan Continue ventilator support and FiO2 has been drop down to 40% with a PEEP of 5 Keep the patient in supine positioning The patient is currently on a pressors The patient is currently on a combination of meropenem and vancomycin The patient is a new triple-lumen catheter in his left IJ The patient continues to receive enteral feeding for nutritional support The patient was taken off the paralytics The patient will be gradually weaned off the sedation to assess his mental status and his motor function and power The patient will be taken off the IV Solu-Medrol and the patient will be placed on oral prednisone at a dose of 30 mg by mouth daily We'll continue rest of the supportive care We'll continue to follow May be a good candidate for tracheostomy next week if he is up to have weaning parameters are poor and not consistent with successful weaning. The patient has been taken off the pressors for now. We'll continue to follow Further recommendations are to follow based on his progress. I contacted the daughter and I informed that of the above-mentioned changes. This is a critically care evaluation that was done and morning 30 minutes. Time with Patient: Greater than 30
[2020-02-14] MEDS: CLEVIDIPINE BUTYRATE 25 MG in EMPTY BAG 1 BAG IV SCH ×3 (13:26→23:11)
[2020-02-14] MEDS: FLUCONAZOLE 100 MG TAB NG-TUBE SCH (16:13)
[2020-02-14] MEDS: AMPICILLIN-SULBACTAM 3 GM in SODIUM CHLORIDE 0.9% 100 ML IVPB SCH ×2 (16:14→23:46)
--- NOTE | 2020-02-14 16:57 | P.PN ---
Subjective Progress Note Date: 02/14/20 Principal diagnosis: COVID 19 64-year-old male was admitted for acute hypoxic respiratory failure secondary to COVID 19 diagnosis. He was started on hydroxychloroquine, Rocephin and doxycycline along with albuterol inhaler and placed on droplet precautions. He was started on low-dose IV steroids and given supplemental O2 maintain maintain O2 saturation greater than 92%. He was initially on 6 L nasal cannula which progressively increased to 15 L high flow. Awake proning was attempted without much relief. Patient continued to deteriorate and pulmonology was consulted. Pulmonology recommended transfer to ICU for closer monitoring on 01/29/2020. He was intubated on 01/30/2020 overnight. He received 2 doses of Tocolizumab on February 01 and February 02. He continues to be intubated. There was some question of constipation for which he was given lactulose. He had multiple episodes of diarrhea after that. Patient was noted to be in A. fib with RVR on 02/11/2020. Cardiology was consulted and he was started on a amiodarone drip. He continues to be intubated. Patient was seen and examined in the morning. He continues to be intubated. Lymphatics discontinued yesterday. Rate is at 20. Tidal volume 480. FiO2 40 %. PEEP is at 10. Chest x-ray shows continued diffuse interstitial opacities and extensive subcutaneous emphysema. Blood cultures showing group B enterococcus. Right groin catheter replaced and sent for cultures. Leukocytosis resolved. D-dimer steady at 1.26. CRP negative. LDH within normal limits. Pro-calcitonin improving to 1.37. Objective - Vital Signs Vital signs: Vital Signs Temp 97.5 F L 02/14/20 16:00 Pulse 60 02/14/20 16:30 Resp 20 02/14/20 16:30 BP 91/58 02/14/20 04:00 Pulse Ox 96 02/14/20 16:30 Intake & Output 02/13/20 02/14/20 02/14/20 18:59 06:59 18:59 Intake Total 7979.329 4496.267 881.000 Output Total 1070 2530 670 Balance 242.174 -799.733 211.000 Weight 103 kg 103.7 kg Intake: IV 312 309 334 Meropenem 1 gm In Sodium 100 Chloride 0.9% 100 ml @ 200 mls/hr IVPB Q8HR [facility] Rx#:[id number] Normal Saline Pressure 72 69 54 Bag Sodium Chloride 0.9% 1, 240 240 180 000 ml @ 20 mls/hr IV . Q24H [facility] Rx#:[id number] Intake, IV Titration 434.174 668.267 100.000 Amount Propofol 1,000 mg In 356.77 495.671 100.000 Empty Bag 1 bag @ Titrate IV .Q0M [facility] Rx#: [id number] fentaNYL (PF) 2,500 mcg 77.404 172.596 In Sodium Chloride 0.9% 200 ml @ 1.5 MCG/KG/HR 15 .69 mls/hr IV .[id number] [facility] Rx#:[id number] Oral 200 Tube Feeding 536 493 387 Other 30 60 60 Output: Urine 1070 1130 670 Stool 1400 Other: Voiding Method Indwelling Catheter Indwelling Catheter Indwelling Catheter # Voids 1 ABP, PAP, CO, CI - Last Documented Arterial Blood Pressure 198/72 - Exam General: [non toxic], [intubated], [appears at stated age] Derm: [warm], [dry], [fullness of the neck with crepitus] Head: [atraumatic], [normocephalic], [symmetric] Eyes: [EOMI], [no lid lag], [anicteric sclera] Mouth: [no lip lesion], [mucus membranes moist] Cardiovascular: [S1S2 reg], [no murmur], [positive DP pulse bilateral], Lungs: [Coarse breath sounds bilateral], [no rhonchi, no rales] , [no accessory muscle use] Abdominal: [soft], [ nontender to palpation], [decreased bowel sounds], [no appreciable organomegaly] Ext: [no gross muscle atrophy], [2+ pitting edema in all 4 extremities], [no contractures] Neuro: [Unable to determine] Psych: [Unable to determine] - Labs CBC & Chem 7: 02/14/20 04:30 02/14/20 04:30 Labs: Abnormal Lab Results - Last 24 Hours (Table) 02/13/20 02/14/20 02/14/20 Range/Units 17:08 01:17 04:30 RBC 3.19 L (4.30-5.90) m/uL Hgb 9.8 L (13.0-17.5) gm/dL Hct 31.2 L (39.0-53.0) % RDW 18.5 H (11.5-15.5) % Lymphocytes # 0.6 L (1.0-4.8) k/uL D-Dimer (<0.60) mg/L FEU ABG pH (7.35-7.45) ABG pO2 (83-108) mmHg ABG HCO3 (21-25) mmol/L ABG Total CO2 (19-24) mmol/L Carbon Dioxide (22-30) mmol/L BUN (9-20) mg/dL Creatinine (0.66-1.25) mg/dL Glucose (74-99) mg/dL POC Glucose (mg/dL) 123 H 133 H (75-99) mg/dL ALT (4-49) U/L Creatine Kinase (55-170) U/L Total Protein (6.3-8.2) g/dL Albumin (3.5-5.0) g/dL 02/14/20 02/14/20 02/14/20 Range/Units 04:30 04:30 04:58 RBC (4.30-5.90) m/uL Hgb (13.0-17.5) gm/dL Hct (39.0-53.0) % RDW (11.5-15.5) % Lymphocytes # (1.0-4.8) k/uL D-Dimer 1.26 H (<0.60) mg/L FEU ABG pH 7.50 H (7.35-7.45) ABG pO2 63 L (83-108) mmHg ABG HCO3 33 H (21-25) mmol/L ABG Total CO2 34 H (19-24) mmol/L Carbon Dioxide 35 H (22-30) mmol/L BUN 35 H (9-20) mg/dL Creatinine 0.52 L (0.66-1.25) mg/dL Glucose 123 H (74-99) mg/dL POC Glucose (mg/dL) (75-99) mg/dL ALT 104 H (4-49) U/L Creatine Kinase <20 L (55-170) U/L Total Protein 4.4 L (6.3-8.2) g/dL Albumin 2.4 L (3.5-5.0) g/dL 02/14/20 02/14/20 Range/Units 05:47 12:53 RBC (4.30-5.90) m/uL Hgb (13.0-17.5) gm/dL Hct (39.0-53.0) % RDW (11.5-15.5) % Lymphocytes # (1.0-4.8) k/uL D-Dimer (<0.60) mg/L FEU ABG pH (7.35-7.45) ABG pO2 (83-108) mmHg ABG HCO3 (21-25) mmol/L ABG Total CO2 (19-24) mmol/L Carbon Dioxide (22-30) mmol/L BUN (9-20) mg/dL Creatinine (0.66-1.25) mg/dL Glucose (74-99) mg/dL POC Glucose (mg/dL) 134 H 115 H (75-99) mg/dL ALT (4-49) U/L Creatine Kinase (55-170) U/L Total Protein (6.3-8.2) g/dL Albumin (3.5-5.0) g/dL Microbiology - Last 24 Hours (Table) 02/12/20 05:32 Blood Culture Gram Stain - Final Blood Blood Culture - Final Enterococcus faecalis 02/13/20 11:25 Catheter Tip Culture - Preliminary Catheter Tip 02/12/20 05:32 Blood Culture - Preliminary Blood No Growth after 48 hours 02/13/20 16:05 Urine Culture - Preliminary Urine,Voided 02/10/20 16:15 Blood Culture - Preliminary Blood No Growth after 72 hours Assessment and Plan Assessment: Acute hypoxic respiratory failure, sepsis with enterococcus bacteremia, COVID 19 pneumonia, possible bacterial pneumonia Atrial fibrillation with RVR Diarrhea Immunocompromised secondary to methotrexate for history of rheumatoid arthritis Subcutaneous emphysema around the neck Chest x-ray remained stable, bilateral multifocal infiltrates. Catheter tip culture positive for coagulase-negative staph. Sputum culture positive for Fiordaliza albicans. Blood culture positive for group D enterococcus, repeat blood culture negative at 24 hours. Plans: Meropenem and vancomycin switched to Unasyn. Patient continues to be on ascorbic acid. Ventilator support as per pulmonology. Continue Solu-Medrol. Infectious disease and pulmonology following. Continue to trend inflammatory markers. Currently sinus rhythm. Plans: Discontinue amiodarone drip. Continue metoprolol as needed. C. diff negative. Likely related to lactulose. Subcutaneous emphysema around his neck will be monitored. [Patient shows improvement in ventilation parameters. Paralytic discontinued and sedation to be weaned of. Prognosis is guarded. Inflammatory markers improving. He is pending clinical improvement.]
--- NOTE | 2020-02-14 17:19 | PN ---
PROGRESS NOTE DATE OF SERVICE: 02/14/2020. REASON FOR FOLLOW UP: 1. Pneumonia. 2. Bacteremia. INTERVAL HISTORY: The patient is currently afebrile. The patient is hemodynamically stable. Not on any pressor support. FiO2 is currently 40% or any diarrhea reported by the staff. PHYSICAL EXAMINATION: Blood pressure 160/58 with a pulse of 57. Temperature is 97.7. He is 94% on 40% FiO2. General description is a middle-aged male intubated on the vent. Respiratory system: Unlabored breathing. Clear to auscultation anteriorly. Heart S1, S2. Regular rate and rhythm. Abdomen soft, no distention. LABS: Hemoglobin 9.8, white count 5.2. BUN of 35, creatinine 0.52. Blood with Enterococcus faecalis, which is sensitive pathogen. Sputum showing Fiordaliza albicans. DIAGNOSTIC IMPRESSION AND PLAN: Patient with acute respiratory failure which is likely multifactorial in this patient who did have a component of pneumonia, sputum now showing a resistant pathogen. Blood culture with Enterococcus faecalis with sensitive pathogen. Antibiotic will be adjusted to Unasyn 3 grams q.6 and Diflucan and we will monitor clinical course closely. Overall prognosis remains to be guarded. MMODL / IJN: [id number] /
[2020-02-14] MEDS: SODIUM CHLORIDE 0.9% 1,000 ML IV SCH (17:31)
[2020-02-14 18:31] LABS: Glucose,Whole Blood 100 mg/dL (75-99)
[2020-02-14 23:26] LABS: Glucose,Whole Blood 97 mg/dL (75-99)
[2020-02-15] MEDS: fentaNYL (PF) 2,500 MCG in SODIUM CHLORIDE 0.9% 200 ML IV SCH ×2 (02:32→23:59)
[2020-02-15] MEDS: PROPOFOL 1,000 MG in EMPTY BAG 1 BAG IV SCH ×4 (03:20→18:28)
[2020-02-15] MEDS: CLEVIDIPINE BUTYRATE 25 MG in EMPTY BAG 1 BAG IV SCH ×4 (03:38→15:44)
[2020-02-15 04:46] LABS: ABG Base Excess 9.4 mmol/L; ABG HCO3 32 mmol/L (21-25); ABG Oxygen Saturation 93.1 % (94-97); ABG PCO2 38 mmHg (35-45); ABG PH 7.53 (7.35-7.45); ABG PO2 61 mmHg (83-108); ABG TCO2 33 mmol/L (19-24); Allen Test Performed? Yes
[2020-02-15 05:08] LABS: Anisocytosis Slight; Basophils % (A) 0 %; Eosinophils # (A) 0.3 k/uL (0-0.7); Eosinophils % (A) 5 %; HCT 36.8 % (39.0-53.0); HGB 12.2 gm/dL (13.0-17.5); Hypochromasia Slight; Lymphocytes # (A) 0.7 k/uL (1.0-4.8); Lymphocytes % (A) 11 %; MCHC 33.2 g/dL (31.0-37.0); MCV 93.3 fL (80.0-100.0); Macrocytosis Slight; Mean Platelet Volume 7.9; Monocytes # (A) 0.3 k/uL (0-1.0); Monocytes % (A) 5 %; Neutrophils # (A) 4.8 k/uL (1.3-7.7); Neutrophils % (A) 78 %; Platelet Count 201 k/uL (150-450); RBC 3.94 m/uL (4.30-5.90); RDW 18.7 % (11.5-15.5); WBC 6.1 k/uL (3.8-10.6)
[2020-02-15 05:14] LABS: ALT 90 U/L (4-49); AST 29 U/L (17-59); African American GFR (CKD) >90 (>60 ml/min/1.73 sqM); Albumin 2.6 g/dL (3.5-5.0); Alkaline Phosphatase 76 U/L (38-126); Anion Gap 1 mmol/L; Blood Urea Nitrogen 29 mg/dL (9-20); C Reactive Protein <5.0 mg/L (<10.0); Calcium 8.7 mg/dL (8.4-10.2); Carbon Dioxide 32 mmol/L (22-30); Chloride 104 mmol/L (98-107); Creatine Kinase <20 U/L (55-170); Glucose 98 mg/dL (74-99); LDH 725 U/L (313-618); Non-African American GFR(CKD) >90 (>60 ml/min/1.73 sqM); Potassium 3.2 mmol/L (3.5-5.1); Sodium 137 mmol/L (137-145); Total Bilirubin 0.6 mg/dL (0.2-1.3); Total Protein 4.8 g/dL (6.3-8.2)
[2020-02-15] MEDS: NOREPINEPHRINE 4 MG in SODIUM CHLORIDE 0.9% 250 ML IV SCH ×2 (05:24→19:38)
[2020-02-15] MEDS ORDERED: Potassium Replacement Protocol 1 EACH MISC MISCELLANE PRN (06:06)
[2020-02-15] MEDS: INSULIN ASPART (NovoLOG) 100 UNIT/ML VIAL SQ SCH ×3 (06:10→18:30)
[2020-02-15] MEDS: POTASSIUM CHLORIDE 20 MEQ in WATER FOR INJECTION 1 100ML.BAG IVPB SCH ×3 (06:20→15:51)
[2020-02-15] MEDS: AMPICILLIN-SULBACTAM 3 GM in SODIUM CHLORIDE 0.9% 100 ML IVPB SCH ×3 (06:20→19:53)
--- NOTE | 2020-02-15 06:30 | XR ---
EXAMINATION TYPE: XR chest 1V portable DATE OF EXAM: 02/15/2020 HISTORY: intubated. REFERENCE: Previous study dated 02/14/2020 the patient's ET tube and NG tube as well as the left inter nal jugular catheter remain in place, unchanged in appearance. There is improvement in the degree of subcutaneous emphysema. The heart is not enlarged. There continue be bilateral infiltrates most marke d in the left lower lobe. I cannot exclude small effusions.. FINDINGS: No significant interval change in the appearance of the chest. IMPRESSION:
[2020-02-15] MEDS: ALBUTEROL HFA INHALER INHALATION SCH ×4 (07:25→20:43)
[2020-02-15] MEDS: CHLORHEXIDINE GLUCONATE 15 ML CUP MUCOUS MEM SCH (09:40)
[2020-02-15] MEDS: predniSONE 10 MG TAB PO SCH (09:55)
[2020-02-15] MEDS: PANTOPRAZOLE 40 MG/10 ML VIAL IVP SCH (09:55)
[2020-02-15] MEDS: ENOXAPARIN 40 MG/0.4 ML SYRINGE SQ SCH (09:55)
[2020-02-15] MEDS: ASCORBIC ACID 500 MG TAB OG-TUBE SCH ×2 (09:55→19:50)
[2020-02-15] MEDS: ZINC SULFATE 220 MG CAP PO SCH (10:04)
[2020-02-15 11:30] LABS: ABG HCO3 32 mmol/L (21-25); ABG Oxygen Saturation 93.9 % (94-97); ABG PCO2 36 mmHg (35-45); ABG PO2 63 mmHg (83-108); ABG TCO2 33 mmol/L (19-24); Allen Test Performed? Yes
[2020-02-15 11:33] LABS: ABG PH 7.56 (7.35-7.45)
[2020-02-15 13:04] LABS: Glucose,Whole Blood 113 mg/dL (75-99)
--- NOTE | 2020-02-15 13:38 | P.PN ---
Subjective Progress Note Date: 02/15/20 This is a 64-year-old male patient with history of rheumatoid arthritis maintained on methotrexate on outpatient basis was hospitalized for acute Covid 19 pneumonia. The patient was originally admitted to the hospital on 01/22/2020, and back then I was involved in his care and I saw him in consultation as the patient was becoming progressively more hypoxemic. He ultimately required intubation mechanical ventilation. The patient developed worsening in pneumonia and subsequent ARDS related to Covid 19 infection. He was intubated on 01/30/2020 and his been intubated since. During the course of his treatment, the patient was maintained on mechanical ventilator sedated she is with a combination of Plaquenil and systemic steroids and subsequently the patient also received 2 doses of tocilizumab on 02/01 on 02/03/2020.. The patient has been kept on mechanical ventilator on assist control mode at the rate of 30 with a tidal volume of 450 and FiO2 of 50% with a PEEP of 15. He has required a combination of propofol and fentanyl for sedation and propofol is running at 60 mcg/kg per minute and fentanyl is running at 1.5 mcg/kg/h. His chest x-ray continues to show left basilar airspace disease although there has been some improvement in aeration in the right lung. There is still evidence of subcutaneous emphysema in his neck area bilaterally. ET tube remains in good location. As mentioned earlier, the patient completed Plaquenil and he remains on vitamin C and zinc sulfate. He remains on IV Solu-Medrol 40 mg every 8 hours and the patient is also on empiric antibiotic coverage with IV Zosyn. His sputum is shown Fiordaliza albicans. His overall inflammatory markers showed a d- dimer of 0.9 which has gradually dropped from as high as 2.09 and the patient has been on Lovenox 100 mg subcu every 12 hours. The patient has also demonstrated a high LDH which has remained high and the CRP and the ferritin have gradually improved during the course of the treatment. His interleukin-6 level was 15 on 02/04/2020. On today's evaluation of 02/09/2020, the patient remains sedated with propofol at 60 g per KG per minute and the patient is also on fentanyl. The patient is on no paralytics. He is on assist control mode with a PEEP of 15 and a tidal volume of 450 and FiO2 of 50% with a rate of 30. The blood gases from today showed a pH of 7.4 with a pCO2 55 and a pO2 of 80. The chest x-ray findings are essentially stable and unchanged with diffuse bilateral pulmonary interstitial and alveolar infiltrates. The patient has developed significant amount of fluid overload. His fluid balance has been extensively negative in the order of 2.1 L on a daily basis at least and he has developed significant edema in lower extremities. His weight is up 204 kg which is 11 kg higher compared to his admission day. On today's evaluation of 02/10/2020, I'm seeing this patient for a follow-up in the intensive care unit. The patient remains sedated on propofol at 30 g per KG per minute and the patient is also on fentanyl at 70 g per KG per hour.. The patient is an assist-control mode of ventilation at the rate of 30 with a tidal volume of 400 and FiO2 of 70% with a PEEP of 5. The morning blood gases showed a pH of 7.51 with a pCO2 44 and pO2 of 67. The patient has stable bila teral pulmonary infiltrates related to Covid 19 related pneumonia. Patient has completed the course of Plaquenil. The patient is afebrile. The patient is demonstrating a stable LDH level of 659 and the patient's C-reactive protein is less than 5. BUN is 24 with a creatinine of 0.5. Aggressive efforts at all within normal limits. The patient is being diuresis with IV Lasix. The patient is receiving Lasix 40 mg and push every 12 hours. The patient has been negative fluid balance of 4 L over the past 24 hours. We are the process of getting this patient a sedation holiday. As were doing that, it was noted that the patient was becoming progressively more restless and asynchronous with a mechanical ventilator. This patient to a pressure control mode with a pressure control of 15, PEEP of 5, FiO2 of 70% at the rate of 22. The patient has been tolerating this setting without any major difficulties and he has become more synchronous. He has been switched to prophylactic dose of Lovenox. No other significant events otherwise for now. He is in the process of getting a sedation holiday. On 02/11/2020, the patient is being seen in follow-up in the intensive care unit. Events from yesterday were noted. The patient seems to be quite waking up reasonably well off sedation. He was given a sedation holiday. He was able to open up his eyes and follows some simple commands. Nevertheless he was found to be quite weak with the patient was unable to reach or gravel raises of the kidneys gravity. He did have a weak cough and gag. Decided to give him a trial of extubation yesterday and the patient was extubated to BiPAP. Within 2 hours post extubation, the patient failed and he had to be reintubated. Since then, the patient's condition progressively got worse. The patient was initially on a pressure control mode of ventilation. He was unable to oxygenate and ventilate well. He was switched to volume cycle and gradually PEEP was increased and based on our inability to adequately oxygen and the patient, he was phoned and placed in a prone position throughout the evening. This morning, the patient is on a volume control mode of ventilation at the rate of 32 with a tidal volume of 400 and a PEEP of 18 with an FiO2 of 100%. PH was at 7.17 with a pCO2 97 and pO2 of 104. Peak air pressures 33. Static pressure is 32. Rest x-ray remains unchanged with diffuse interstitial breath and pulmonary infiltrates. The patient received a bolus of IV fluids 1 L the patient was having increased diarrhea. Reglan and the rest of the laxative medications were discontinued and stool was sent for C. diff. He is on a maintenance appointment at the rate of 70 mL an hour. He is on propofol at 40 mg per KG per minute, fentanyl at 0.8 and Nimbex at 1 mcg/kg per minute. The patient is was sedated and suggested a mechanical ventilator at this point in time. He is receiving enteral feeding for nutritional support and he has a fecal management system regarding his ongoing diarrhea. Contacted her daughter and updated her on her father's condition. On 02/12/2020, the patient is sedated, paralyzed, intubated on a mechanical ventilator regarding code 19 related pneumonia and ARDS. The patient is in a supine body position and he was taken off the prone positioning yesterday. He is on propofol at 50 mg per KG per minute, and he is also on them back sent 1 g. He is on assist-control at the rate of 32 with a tidal volume of 400 and FiO2 of 50% with a PEEP of 18. Blood gas showed a pH of 7.47 with a pCO2 93 and pO2 129. Chest x-ray findings are essentially stable with diffuse but the pulmonary infiltrates and some subcutaneous emphysema that has remained stable. The patient was taken down to an FiO2 of 40% and the PEEP was taken down to 16. A subsequent blood gases showed a pH of 7.24 with a pCO2 of 79 and a pO2 of 86. I dropped the PEEP accordingly down to 15. He is still maintaining a saturation above 90%. He is very asynchronous with a mechanical ventilator. His peak air pressures 32. Static pressures 29. He is on IV Solu-Medrol. He is on vital high protein at the rate of 50 mL an hour for enteral feeding and nutritional support. Yesterday afternoon, the patient went into atrial fibrillation with rapid ventricular response. He was given amiodarone bolus and maintenance and subsequently converted back to normal sinus rhythm. Currently is in sinus rhythm. The patient will be taken off the amiodarone. During this atrial fi brillation, the patient became hypotensive also. He was started on norepinephrine infusion which is gradually being weaned off and the patient is currently down to 0.04 g per KG per minute of norepinephrine infusion. The patient is off Lasix. I was considering the patient was having a superinfection as the patient was having fever and the pro-calcitonin level came back at 7.32. As such I was concerned of superinfection. C. diff and the stool came back negative. The patient was covered apparently with a combination of Merrem and vancomycin as broad-spectrum antibiotics pending further cultures. Cultures were sent and there is also still pending for now. His white cell count was as high as 19.7 and currently is down to 16.9. He is afebrile for now. He remains on Lovenox for DVT prophylaxis. His d-dimer is down to 1.1. On 02/13/20, the patient is being seen for a follow-up. The patient remains sedated and paralyzed. The patient is on a combination of propofol at 65 g and fentanyl at 0.5 g and Nimbex is running at 1 g. He remains on a mechanical ventilator. He is showing improvement in his parameters and peak and static pressures. His been also showing improvement in his overall lung compliance. This morning he is on assist control mode at the rate of 32 with a tidal volume of 400 and FiO2 of 40% and his PEEP was as high as 13 and it got gradually dropped down to 11 and currently is down to 10 cm of water. FiO2 has been also dropped down to 40%. With that, his morning blood gases showed a pH of 7.29 with a pCO2 of 75 and pO2 of 78. Peak airway pressure is 26. Vital airway pressure is 22. Chest x-ray findings and essentially showing subcutaneous emphysema which is extended and his neck and chest area. Nevertheless, there is no evidence of any pneumothorax. The patient has no significant orotracheal secretions. Blood cultures came back positive for enterococcus group D. Discussed the case with infectious disease. The patient a triple lumen catheter in the right femoral vein. This was removed and the tip was sent to cultures and the patient had another central line inserted in his left internal jugular vein. This was done successfully without any complications. The patient also has become hemodynamically stable and he is on no pressors. Antibiotic coverage including a combination of meropenem and vancomycin. He is afebrile. He is tolerating his tube feeds. No other significant events otherwise for now. Very much pleased with his improvement in his oxygenation and overall hemodynamics with current antibiotic regimen. I think decompensated being counted was related to his underlying sepsis. The white cell count is down to 9.8. Hemoglobin stable at 10.4. D-dimer is at 1.16. On the morning of 02/14/2020, the patient is still sedated but not paralyzed. Noted the paralytics was discontinued yesterday. Note that the patient was improvement in lung compliance and we were able to wean down the FiO2 and a PEEP over the past 24 hours. This morning, the patient remains sedated with propofol. The patient is also on fentanyl. Propofol is running at 65 g and fentanyl is at 1.5 g. Nimbex was discontinued more than 24 hours ago. The patient is on a VC plus mode of mechanical ventilation at the rate of 20 with a tidal volume of 480 and a tidal volume of 40% with a PEEP of 5. The patient's blood gases from today showed a pH of 7.5 with a pCO2 of 42 with a p O2 of 63. Chest x-ray findings are essentially stable and the patient continues to have subcutaneous emphysema with seems to be slightly worse on the left compared to the right. There is also some patchy airspace disease in the right and some l eft basilar airspace disease which was present on previous chest x-ray findings. In terms of microbiology, the patient was found to have group D enterococcus in the blood and the patient was given a combination of Merrem and vancomycin. He is hemodynamically stable. He is afebrile. White cell count is improved. Pro- calcitonin levels have dropped. The catheter from the right groin was removed and the tip was sent for cultures and the results are still pending for now. The rest of the blood work shows a component of metabolic alkalosis with a serum bicarbonate 35. Renal function is stable with a BUN of 35 and a creatinine of 0.5. The patient's LFTs are within normal limits. Bilirubin is at 0.4. CPK is less than 20. The CRP is at less than 5. Ferritin level is down 246. The tota l protein is at 4.4 with a albumin of 2.4. On 02/15/2020, I'm pleased to report that the patient has been gradually weaned off the sedation and currently is on 10 g of propofol and 1.5 g of fentanyl. He is arousable. He is extremely weak. Unable to move his arms and legs. He is unable to raise it up to bed. However is able to communicate by making facial movements and eye movements. He is still intubated on a mechanical ventilator. He is an assist-control mode of ventilation with a VC plus mode at the rate of 24 with a tidal volume of 480 an FiO2 of 40% with a PEEP of 5. His inspiratory time is 1 second. His speech is at 7.53 with a pCO2 of 30 and pO2 of 61. Chest x-ray shows no significant interval change and there is evidence of subcutaneous emphysema in the neck and the chest area bilaterally. Nevertheless, the patient has pneumocystis significant improvement in the peak and static pressures. There is improvement in oxygenation. The patient had a set of weaning parameters and he showed a rapid shallow breathing index of 40. The patient accordingly was given a CPAP trial with a pressure support of 8 and a CPAP 5 and he was able to tolerate that for more than 2 hours. At the end of this trial, I was a bit hesitant to extubate the patient because of his profound weakness. I opted to give the patient another 24 hours. However, I'm going to keep the patient sedation to minimal hoping that he should be able to recover some of his motor functions and become more ready for extubation. He is extremely weak at this point in time. He still is feeding for nutritional support. He is on vital high protein. I have him on IV Unasyn regarding his enterococcal septicemia. Vancomycin was discontinued. Meropenem was discontinued. His repeat cultures are negative thus far. Infectious disease on the case. The patient has no significant leukocytosis. The white cell count is normalized. The Route some respiratory alkalosis and a component of metabolic alkalosis and metabolic alkalosis related to his chronic hypercapnic respiratory failure that occurred at time of his severe ARDS. He is currently on IV fluids with normal saline at 20 mL an hour. He is on Lovenox for DVT prophylaxis. He is on no pressors for now. He is on oral prednisone at 30 mg by mouth daily. Objective - Vital Signs Vital signs: Vital Signs Temp 98.6 F 02/15/20 12:00 Pulse 74 02/15/20 13:00 Resp 24 02/15/20 13:00 BP 91/58 02/15/20 13:00 Pulse Ox 97 02/15/20 13:00 Intake & Output 02/14/20 02/15/20 02/15/20 18:59 06:59 18:59 Intake Total 4581.140 4708.639 525.582 Output Total 1170 2375 2440 Balance 134.983 -1007.361 -1914.418 Weight 102 kg Intake: IV 502 246 182 Ampicillin-Sulbactam 3 gm 100 In Sodium Chloride 0.9% 100 ml @ 200 mls/hr IVPB Q6HR [facility] Rx#:[id number] Meropenem 1 gm In Sodium 100 100 Chloride 0.9% 100 ml @ 200 mls/hr IVPB Q8HR [facility] Rx#:[id number] Normal Saline Pressure 42 66 42 Bag Sodium Chloride 0.9% 1, 260 180 40 000 ml @ 20 mls/hr IV . Q24H [facility] Rx#:[id number] Intake, IV Titration 153.983 624.639 182.582 Amount Clevidipine Butyrate 25 5.167 94.833 100.000 mg In Empty Bag 1 bag @ 1 MG/HR 2 mls/hr IV .Q24H [facility] Rx#:[id number] Propofol 1,000 mg In 148.816 279.806 82.582 Empty Bag 1 bag @ Titrate IV .Q0M [facility] Rx#: [id number] fentaNYL (PF) 2,500 mcg 250 In Sodium Chloride 0.9% 200 ml @ 1.5 MCG/KG/HR 15 .69 mls/hr IV .[id number] [facility] Rx#:[id number] Tube Feeding 559 387 161 Lipid 20 Meropenem 1 gm In Sodium 20 Chloride 0.9% 100 ml @ 200 mls/hr IVPB Q8HR [facility] Rx#:[id number] Other 90 90 Output: Urine 1170 1975 2240 Stool 400 200 Other: Voiding Method Indwelling Catheter Indwelling Catheter Indwelling Catheter # Voids 1 ABP, PAP, CO, CI - Last Documented Arterial Blood Pressure 131/53 - Exam GENERAL EXAM: Intubated, and the patient was weaned off the sedation. As mentioned earlier, is able to communicate by facial expressions. He is able to say yes and no. Extremely weak, unable to move his arm his legs. HEAD: Normocephalic. EYES: Sluggish reaction of pupils, equal size. NOSE: Clear with pink turbinates. THROAT: Oral endotracheal and gastric tube secured in place. No erythema or exudates. NECK: No masses, no JVD. CHEST: No chest wall deformity. LUNGS: Equal air entry with few scattered rhonchi, crackles in the posterior bases. CVS: S1 and S2 normal with no audible murmur, regular rhythm. ABDOMEN: No hepatosplenomegaly, normal bowel sounds, no guarding or rigidity. SPINE: No scoliosis or deformity SKIN: No rashes CENTRAL NERVOUS SYSTEM: The patient is arousable. Pupils are equal and reactive to light. No facial asymmetry. Extensive motor weakness. Reflexes are done and all 4 extremities. Muscle tone is weak. No fasciculation. No clonus and no Babinski. The patient is able to communicate by facial expressions and moving his eyebrows and blinking. EXTREMITIES: There is significant amount of peripheral edema in all 4 extremities. No clubbing, no cyanosis. Peripheral pulses are intact. - Labs CBC & Chem 7: 02/15/20 04:40 02/15/20 04:40 Labs: Abnormal Lab Results - Last 24 Hours (Table) 02/14/20 02/15/20 02/15/20 Range/Units 18:30 04:40 04:40 RBC 3.94 L (4.30-5.90) m/uL Hgb 12.2 L (13.0-17.5) gm/dL Hct 36.8 L (39.0-53.0) % RDW 18.7 H (11.5-15.5) % Lymphocytes # 0.7 L (1.0-4.8) k/uL D-Dimer 2.99 H (<0.60) mg/L FEU ABG pH (7.35-7.45) ABG pO2 (83-108) mmHg ABG HCO3 (21-25) mmol/L ABG Total CO2 (19-24) mmol/L ABG O2 Saturation (94-97) % Potassium (3.5-5.1) mmol/L Carbon Dioxide (22-30) mmol/L BUN (9-20) mg/dL Creatinine (0.66-1.25) mg/dL POC Glucose (mg/dL) 100 H (75-99) mg/dL ALT (4-49) U/L Lactate Dehydrogenase (313-618) U/L Creatine Kinase (55-170) U/L Total Protein (6.3-8.2) g/dL Albumin (3.5-5.0) g/dL 02/15/20 02/15/20 02/15/20 Range/Units 04:40 04:41 11:22 RBC (4.30-5.90) m/uL Hgb (13.0-17.5) gm/dL Hct (39.0-53.0) % RDW (11.5-15.5) % Lymphocytes # (1.0-4.8) k/uL D-Dimer (<0.60) mg/L FEU ABG pH 7.53 H 7.56 H* (7.35-7.45) ABG pO2 61 L 63 L (83-108) mmHg ABG HCO3 32 H 32 H (21-25) mmol/L ABG Total CO2 33 H 33 H (19-24) mmol/L ABG O2 Saturation 93.1 L 93.9 L (94-97) % Potassium 3.2 L (3.5-5.1) mmol/L Carbon Dioxide 32 H (22-30) mmol/L BUN 29 H (9-20) mg/dL Creatinine 0.48 L (0.66-1.25) mg/dL POC Glucose (mg/dL) (75-99) mg/dL ALT 90 H (4-49) U/L Lactate Dehydrogenase 725 H (313-618) U/L Creatine Kinase <20 L (55-170) U/L Total Protein 4.8 L (6.3-8.2) g/dL Albumin 2.6 L (3.5-5.0) g/dL 02/15/20 Range/Units 13:03 RBC (4.30-5.90) m/uL Hgb (13.0-17.5) gm/dL Hct (39.0-53.0) % RDW (11.5-15.5) % Lymphocytes # (1.0-4.8) k/uL D-Dimer (<0.60) mg/L FEU ABG pH (7.35-7.45) ABG pO2 (83-108) mmHg ABG HCO3 (21-25) mmol/L ABG Total CO2 (19-24) mmol/L ABG O2 Saturation (94-97) % Potassium (3.5-5.1) mmol/L Carbon Dioxide (22-30) mmol/L BUN (9-20) mg/dL Creatinine (0.66-1.25) mg/dL POC Glucose (mg/dL) 113 H (75-99) mg/dL ALT (4-49) U/L Lactate Dehydrogenase (313-618) U/L Creatine Kinase (55-170) U/L Total Protein (6.3-8.2) g/dL Albumin (3.5-5.0) g/dL Microbiology - Last 24 Hours (Table) 02/12/20 05:32 Blood Culture - Preliminary Blood No Growth after 72 hours 02/10/20 16:15 Blood Culture - Preliminary Blood No Growth after 96 hours 02/13/20 16:05 Blood Culture - Preliminary Blood No Growth after 24 hours 02/13/20 16:05 Urine Culture - Final Urine,Voided 02/12/20 05:32 Blood Culture Gram Stain - Final Blood Blood Culture - Final Enterococcus faecalis 02/13/20 11:25 Catheter Tip Culture - Preliminary Catheter Tip Assessment and Plan Plan: 1 acute bilateral Covid 19 pneumonia . This is a extensive pneumonia and the patient was been immunosuppressed on methotrexate for rheumatoid arthritis. this patient has been intubated on a mechanical ventilator since 01/30/2020 and a chest x-ray still showing diffuse bilateral pulmonary infiltras more so on the right upper lobe. Continues to be sedated. He completed Plaquenil. He received Actemra , [id number] therapy, and the patient continues to systemic steroids. D-dimer was elevated and the patient was placed on Lovenox. The patient's inflammatory markers including ferritin LDH and C-reactive protein or improved. This patient had a lengthy course here in the hospital. At one point he was extubated earlier last week and he failed extubation and the patient became septic with Enterococcus faecalis. He went into worsening ARDS and he gradually improved with his oxygenation, lung compliance, he can setting of a pressure, hemodynamics and white cell count and hypotension all improved with a combination of antibiotics and ventilator support. 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 He is unable to move his arms and legs. He is awake. He is able to do facial expressions and communicate with us. Furthermore, his weaning parameters are very good. I gave him a total of 3 hours of CPAP trial today. I was a bit hesitant to extubate the patient because of his profound weakness and his ability to protect his airway. He has an adequate cough. He is rapid shallow breathing index is around 45. I am hopeful that with the next 24-48 hours, the patient will regain some of his motor function back and he will be a better position to extubate. He has developed subcutaneous emphysema which has not affected his respiratory out, this point in time. He does not have any pneumothorax. His sepsis has been treated. The patient has been switched to Unasyn. Repeat blood cultures are negative. No fever. No hypotension. He is off pressors. I am hopeful that we should be able to get this patient a better situation with extubation hopefully within next few days. History receiving enteral feeding for nutritional support. 2 acute hypoxic respiratory failure secondary to above, with secondary ARDS, de tails discussed above 3 episodic fever secondary to above, Recovered 4 diarrhea due to GI manifestation of Covid 19 infection, improved, and his diarrhea recurred and the patient is currently has a fecal management system in stool for C. diff is being evaluated. 6 lymphopenia secondary to Covid 19 infection, improved 7 rheumatoid arthritis maintained on methotrexate on outpatient basis as such the patient has been chronically immunosuppressed. 8 fluid overload, was being treated with IV Lasix which is currently on hold. 9 sepsis secondary to enterococcus with secondary leukocytosis and elevated and in the pro-calcitonin and hypotension. All of these abnormalities improved with antibiotic coverage as the patient is currently on a combination of meropenem and vancomycin. Triple lumen catheter was removed from the right femoral vein and was positioned in the left IJ. This is a new line that was inserted today. Meanwhile, the patient is currently off pressors. He is afebrile. Oxygenation is improving. 10 episode of atrial fibrillation with RVR, recovered and the patient is back to normal sinus rhythm Plan Keep the patient on minimal amount of sedation probably only fentanyl without propofol Keep the patient has his control mode of ventilation He was able to tolerate 3 hours of CPAP trial today Continue IV Unasyn and monitor the blood cultures Continue enteral feeding for nutritional support It may be worthwhile to consider a second extubation on this patient probably with some BiPAP support. He may take potentially a longer time to recover from his motor weakness and this may complicate his weaning. We'll continue to follow. I have taken him off the IV Solu Medrol start him on a prednisone burst taper. May be a candidate for tracheostomy if fails weaning. I think it's worthwhile to give the patient another weaning/extubation trial specially if he is able to tolerate CPAP for longer period of time. We'll continue to follow. Condition is critical. Family has been updated on his condition. Further recommendations are to follow based on his progress. I contacted the daughter and I informed that of the above-mentioned changes. This is a [facility] care evaluation that was done and morning 30 minutes. Time with Patient: Greater than 30
[2020-02-15] MEDS: FLUCONAZOLE 100 MG TAB NG-TUBE SCH (16:32)
--- NOTE | 2020-02-15 17:41 | P.PN ---
Subjective Progress Note Date: 02/15/20 Principal diagnosis: COVID 19 64-year-old male was admitted for acute hypoxic respiratory failure secondary to COVID 19 diagnosis. He was started on hydroxychloroquine, Rocephin and doxycycline along with albuterol inhaler and placed on droplet precautions. He was started on low-dose IV steroids and given supplemental O2 maintain maintain O2 saturation greater than 92%. He was initially on 6 L nasal cannula which progressively increased to 15 L high flow. Awake proning was attempted without much relief. Patient continued to deteriorate and pulmonology was consulted. Pulmonology recommended transfer to ICU for closer monitoring on 01/29/2020. He was intubated on 01/30/2020 overnight. He received 2 doses of Tocolizumab on February 01 and February 02. He continues to be intubated. There was some question of constipation for which he was given lactulose. He had multiple episodes of diarrhea after that. Patient was noted to be in A. fib with RVR on 02/11/2020. Cardiology was consulted and he was started on a amiodarone drip. He continues to be intubated. Patient was seen and examined in the morning. He continues to be intubated. Paralytics discontinued and sedation continues to be weaned down. Patient appears extremely weak but is able to track with his eyes. Rate is at 24. Tidal volume 480. FiO2 40 %. PEEP is at 5. Plans for BiPAP trial today. Chest x-ray shows continued diffuse interstitial opacities and extensive subcutaneous emphysema. Blood cultures showing group B enterococcus, currently on Unasyn. Right groin catheter replaced and sent for cultures. Leukocytosis resolved. CRP negative. LDH slightly increased to 725. Objective - Vital Signs Vital signs: Vital Signs Temp 98.1 F 02/15/20 16:00 Pulse 56 L 02/15/20 17:00 Resp 16 02/15/20 17:00 BP 91/58 02/15/20 17:00 Pulse Ox 100 02/15/20 17:00 Intake & Output 02/14/20 02/15/20 02/15/20 18:59 06:59 18:59 Intake Total 7594.141 7413.639 812.677 Output Total 1170 2375 3260 Balance 134.983 -1007.361 -2447.323 Weight 102 kg Intake: IV 502 246 240 Ampicillin-Sulbactam 3 gm 100 In Sodium Chloride 0.9% 100 ml @ 200 mls/hr IVPB Q6HR [facility] Rx#:[id number] Meropenem 1 gm In Sodium 100 140 Chloride 0.9% 100 ml @ 200 mls/hr IVPB Q8HR [facility] Rx#:[id number] Normal Saline Pressure 42 66 60 Bag Sodium Chloride 0.9% 1, 260 180 40 000 ml @ 20 mls/hr IV . Q24H [facility] Rx#:[id number] Intake, IV Titration 153.983 624.639 327.677 Amount Clevidipine Butyrate 25 5.167 94.833 151.300 mg In Empty Bag 1 bag @ 1 MG/HR 2 mls/hr IV .Q24H [facility] Rx#:[id number] Propofol 1,000 mg In 148.816 279.806 176.377 Empty Bag 1 bag @ Titrate IV .Q0M [facility] Rx#: [id number] fentaNYL (PF) 2,500 mcg 250 In Sodium Chloride 0.9% 200 ml @ 1.5 MCG/KG/HR 15 .69 mls/hr IV .[id number] [facility] Rx#:[id number] Tube Feeding 559 387 245 Lipid 20 Meropenem 1 gm In Sodium 20 Chloride 0.9% 100 ml @ 200 mls/hr IVPB Q8HR [facility] Rx#:[id number] Other 90 90 Output: Urine 1170 1975 2960 Stool 400 300 Other: Voiding Method Indwelling Catheter Indwelling Catheter Indwelling Catheter # Voids 1 ABP, PAP, CO, CI - Last Documented Arterial Blood Pressure 112/50 - Exam General: [non toxic], [intubated], [appears at stated age] Derm: [warm], [dry], [fullness of the neck with crepitus] Head: [atraumatic], [normocephalic], [symmetric] Eyes: [EOMI], [no lid lag], [anicteric sclera] Mouth: [no lip lesion], [mucus membranes moist] Cardiovascular: [S1S2 reg], [no murmur], [positive DP pulse bilateral], Lungs: [Coarse breath sounds bilateral], [no rhonchi, no rales] , [no accessory muscle use] Abdominal: [soft], [ nontender to palpation], [decreased bowel sounds], [no appreciable organomegaly] Ext: [no gross muscle atrophy], [2+ pitting edema in all 4 extremities], [no contractures] Neuro: [Unable to determine] Psych: [Unable to determine] - Labs CBC & Chem 7: 02/15/20 04:40 02/15/20 04:40 Labs: Abnormal Lab Results - Last 24 Hours (Table) 02/14/20 02/15/20 02/15/20 Range/Units 18:30 04:40 04:40 RBC 3.94 L (4.30-5.90) m/uL Hgb 12.2 L (13.0-17.5) gm/dL Hct 36.8 L (39.0-53.0) % RDW 18.7 H (11.5-15.5) % Lymphocytes # 0.7 L (1.0-4.8) k/uL D-Dimer 2.99 H (<0.60) mg/L FEU ABG pH (7.35-7.45) ABG pO2 (83-108) mmHg ABG HCO3 (21-25) mmol/L ABG Total CO2 (19-24) mmol/L ABG O2 Saturation (94-97) % Potassium (3.5-5.1) mmol/L Carbon Dioxide (22-30) mmol/L BUN (9-20) mg/dL Creatinine (0.66-1.25) mg/dL POC Glucose (mg/dL) 100 H (75-99) mg/dL ALT (4-49) U/L Lactate Dehydrogenase (313-618) U/L Creatine Kinase (55-170) U/L Total Protein (6.3-8.2) g/dL Albumin (3.5-5.0) g/dL 02/15/20 02/15/20 02/15/20 Range/Units 04:40 04:41 11:22 RBC (4.30-5.90) m/uL Hgb (13.0-17.5) gm/dL Hct (39.0-53.0) % RDW (11.5-15.5) % Lymphocytes # (1.0-4.8) k/uL D-Dimer (<0.60) mg/L FEU ABG pH 7.53 H 7.56 H* (7.35-7.45) ABG pO2 61 L 63 L (83-108) mmHg ABG HCO3 32 H 32 H (21-25) mmol/L ABG Total CO2 33 H 33 H (19-24) mmol/L ABG O2 Saturation 93.1 L 93.9 L (94-97) % Potassium 3.2 L (3.5-5.1) mmol/L Carbon Dioxide 32 H (22-30) mmol/L BUN 29 H (9-20) mg/dL Creatinine 0.48 L (0.66-1.25) mg/dL POC Glucose (mg/dL) (75-99) mg/dL ALT 90 H (4-49) U/L Lactate Dehydrogenase 725 H (313-618) U/L Creatine Kinase <20 L (55-170) U/L Total Protein 4.8 L (6.3-8.2) g/dL Albumin 2.6 L (3.5-5.0) g/dL 02/15/20 Range/Units 13:03 RBC (4.30-5.90) m/uL Hgb (13.0-17.5) gm/dL Hct (39.0-53.0) % RDW (11.5-15.5) % Lymphocytes # (1.0-4.8) k/uL D-Dimer (<0.60) mg/L FEU ABG pH (7.35-7.45) ABG pO2 (83-108) mmHg ABG HCO3 (21-25) mmol/L ABG Total CO2 (19-24) mmol/L ABG O2 Saturation (94-97) % Potassium (3.5-5.1) mmol/L Carbon Dioxide (22-30) mmol/L BUN (9-20) mg/dL Creatinine (0.66-1.25) mg/dL POC Glucose (mg/dL) 113 H (75-99) mg/dL ALT (4-49) U/L Lactate Dehydrogenase (313-618) U/L Creatine Kinase (55-170) U/L Total Protein (6.3-8.2) g/dL Albumin (3.5-5.0) g/dL Microbiology - Last 24 Hours (Table) 02/13/20 11:25 Catheter Tip Culture - Final Catheter Tip 02/12/20 05:32 Blood Culture - Preliminary Blood No Growth after 72 hours 02/10/20 16:15 Blood Culture - Preliminary Blood No Growth after 96 hours 02/13/20 16:05 Blood Culture - Preliminary Blood No Growth after 24 hours 02/13/20 16:05 Urine Culture - Final Urine,Voided 02/12/20 05:32 Blood Culture Gram Stain - Final Blood Blood Culture - Final Enterococcus faecalis Assessment and Plan Assessment: Acute hypoxic respiratory failure, sepsis with enterococcus bacteremia, COVID 19 pneumonia, possible bacterial pneumonia Hypokalemia Atrial fibrillation with RVR Diarrhea Immunocompromised secondary to methotrexate for history of rheumatoid arthritis Subcutaneous emphysema around the neck Chest x-ray remained stable, bilateral multifocal infiltrates. Catheter tip culture positive for coagulase-negative staph. Sputum culture positive for Fiordaliza albicans. Blood culture positive for group D enterococcus, repeat blood culture negative at 24 hours. Plans: Meropenem and vancomycin switched to Unasyn. Patient continues to be on ascorbic acid. Ventilator support as per pulmonology. Solu-Medrol switched prednisone. Infectious disease and pulmonology following. Continue to trend inflammatory markers. Potassium 3.2. Plans: Replace via Protocol. Repeat BMP tomorrow morning. Currently sinus rhythm. Plans: Discontinue amiodarone drip. Continue m etoprolol as needed. C. diff negative. Likely related to lactulose. Subcutaneous emphysema around his neck will be monitored. [Patient shows improvement in ventilation parameters. Paralytic discontinued and sedation to be weaned of. Prognosis is guarded. Inflammatory markers improving. He is pending clinical improvement.]
[2020-02-15 18:25] LABS: Glucose,Whole Blood 93 mg/dL (75-99)
[2020-02-15] MEDS: SODIUM CHLORIDE 0.9% 1,000 ML IV SCH (19:41)
[2020-02-15] MEDS: methylPREDNISolone SOD SUCCI 125 MG/2 ML VIAL IV SCH (21:46)
[2020-02-15] MEDS: METOCLOPRAMIDE 5 MG/ML 2 ML VIAL IVP SCH (21:47)
[2020-02-15] MEDS: ARTIFICIAL TEARS-HYPROMELLOSE DROPS 15 ML BTL BOTH EYES SCH (21:48)
--- NOTE | 2020-02-15 23:59 | PN ---
PROGRESS NOTE DATE OF SERVICE: 02/15/2020 REASON FOR FOLLOWUP: Pneumonia and bacteremia. INTERVAL HISTORY: The patient is currently afebrile. The patient is hemodynamically stable. FiO2 is currently at 40%. No significant purulent secretion throughout ET or any diarrhea reported. PHYSICAL EXAMINATION: Blood pressure 112/50 with a pulse of 56, temperature of 98. He is 100% on 40% FiO2. General description is a middle-aged male lying in bed in no distress. RESPIRATORY SYSTEM: Unlabored breathing, decreased breath sounds in the bases, no wheeze. HEART: S1, S2. Regular rate and rhythm. ABDOMEN: Soft, no distention. LABS: Hemoglobin is 12.2, white count 6.1, BUN of 29, creatinine 0.48. Blood culture repeat has been negative so far. DIAGNOSTIC IMPRESSION AND PLAN: Patient with Enterococcus faecalis bacteremia with concern for possible line-related as well as abdominal source as urine has been negative. The patient is currently covered with Unasyn and Diflucan to continue. Will monitor clinical course closely. MMODL / IJN: [id number] /
[2020-02-16 00:13] LABS: Glucose,Whole Blood 92 mg/dL (75-99)
[2020-02-16] MEDS: INSULIN ASPART (NovoLOG) 100 UNIT/ML VIAL SQ SCH ×4 (00:16→18:32)
[2020-02-16] MEDS: AMPICILLIN-SULBACTAM 3 GM in SODIUM CHLORIDE 0.9% 100 ML IVPB SCH ×5 (04:14→21:01)
[2020-02-16 04:36] LABS: Anisocytosis Slight; Basophils % (A) 0 %; Eosinophils # (A) 0.3 k/uL (0-0.7); Eosinophils % (A) 6 %; HCT 34.8 % (39.0-53.0); HGB 11.1 gm/dL (13.0-17.5); Hypochromasia Slight; Lymphocytes # (A) 0.7 k/uL (1.0-4.8); Lymphocytes % (A) 13 %; MCH 30.5 pg (25.0-35.0); MCV 95.3 fL (80.0-100.0); Macrocytosis Slight; Mean Platelet Volume 7.9; Monocytes # (A) 0.2 k/uL (0-1.0); Monocytes % (A) 4 %; Neutrophils # (A) 3.9 k/uL (1.3-7.7); Neutrophils % (A) 76 %; Platelet Count 204 k/uL (150-450); RBC 3.65 m/uL (4.30-5.90); WBC 5.1 k/uL (3.8-10.6)
[2020-02-16 04:49] LABS: ALT 66 U/L (4-49); AST 27 U/L (17-59); African American GFR (CKD) >90 (>60 ml/min/1.73 sqM); Albumin 2.3 g/dL (3.5-5.0); Alkaline Phosphatase 60 U/L (38-126); Anion Gap 1 mmol/L; Blood Urea Nitrogen 27 mg/dL (9-20); C Reactive Protein <5.0 mg/L (<10.0); Calcium 8.4 mg/dL (8.4-10.2); Carbon Dioxide 28 mmol/L (22-30); Chloride 107 mmol/L (98-107); Creatine Kinase <20 U/L (55-170); Glucose 82 mg/dL (74-99); LDH 645 U/L (313-618); Non-African American GFR(CKD) >90 (>60 ml/min/1.73 sqM); Potassium 3.8 mmol/L (3.5-5.1); Sodium 136 mmol/L (137-145); Total Bilirubin 0.4 mg/dL (0.2-1.3); Total Protein 4.4 g/dL (6.3-8.2)
[2020-02-16 05:12] LABS: ABG Base Excess 3.4 mmol/L; ABG HCO3 27 mmol/L (21-25); ABG PCO2 39 mmHg (35-45); ABG PH 7.46 (7.35-7.45); ABG PO2 64 mmHg (83-108); ABG TCO2 29 mmol/L (19-24); Allen Test Performed? Yes
[2020-02-16 05:45] LABS: Glucose,Whole Blood 77 mg/dL (75-99)
[2020-02-16] MEDS ORDERED: POTASSIUM BICARBONATE/CIT AC 20 MEQ TABLET.EFF NG-TUBE SCH (06:00)
[2020-02-16] MEDS: NOREPINEPHRINE 4 MG in SODIUM CHLORIDE 0.9% 250 ML IV SCH (06:42)
[2020-02-16] MEDS: ALBUTEROL HFA INHALER INHALATION SCH ×4 (08:04→20:22)
--- NOTE | 2020-02-16 08:30 | XR ---
EXAMINATION TYPE: XR chest 1V portable DATE OF EXAM: 02/16/2020 COMPARISON: 02/15/2020 HISTORY: Follow-up for pneumonia. Ventilatory dependent respiratory failure. TECHNIQUE: Single frontal view of the chest is obtained. FINDINGS: There is redemonstration of severe diffuse subcutaneous emphysema. Cardiomediastinal silho uette is stable. Reticular opacities at the lung bases are redemonstrated. Right costophrenic angle i s not entirely imaged in left costophrenic angle is slightly blunted. No pneumothorax or new focal co nsolidation is seen. IMPRESSION: Extensive subcutaneous emphysema, similar position of the lines and tubes, and bibasilar airspace dis ease remain overall unchanged from 02/15/2020.
[2020-02-16] MEDS: PANTOPRAZOLE 40 MG/10 ML VIAL IVP SCH (08:51)
[2020-02-16] MEDS: predniSONE 10 MG TAB PO SCH (08:54)
[2020-02-16] MEDS: ZINC SULFATE 220 MG CAP PO SCH (08:55)
[2020-02-16] MEDS: ASCORBIC ACID 500 MG TAB OG-TUBE SCH ×2 (08:55→20:31)
[2020-02-16] MEDS: ENOXAPARIN 40 MG/0.4 ML SYRINGE SQ SCH (08:56)
[2020-02-16] MEDS: PROPOFOL 1,000 MG in EMPTY BAG 1 BAG IV SCH ×4 (09:18→20:34)
[2020-02-16] MEDS: CLEVIDIPINE BUTYRATE 25 MG in EMPTY BAG 1 BAG IV SCH (09:52)
[2020-02-16 10:59] LABS: Ferritin 149.6 ng/mL (22.0-322.0)
[2020-02-16 11:48] LABS: Ferritin 144.6 ng/mL (22.0-322.0)
[2020-02-16 12:23] LABS: Glucose,Whole Blood 115 mg/dL (75-99)
--- NOTE | 2020-02-16 13:23 | P.PN ---
Subjective Progress Note Date: 02/16/20 Principal diagnosis: Acute CoVID 19 pneumonitis with acute hypoxemic respiratory failure The patient is seen today 02/16/2020 in follow-up in the intensive care unit. He remains intubated on the mechanical ventilator. Currently in VC plus mode with a tidal volume 450 expiratory time 1.0. Rate of 24. FiO2 40% and a PEEP of 5. Morning blood gases reveal a P O2 of 64, pCO2 39, pH 7.46. He remains sedated on propofol currently at 40 mcg/kg/m. Fentanyl at 1.5 mcg/kg per hour. Cleviprex at 1 mg per hour. Being nourished with vital HP at 43 ML's which is goal. Yesterday he tolerated pressure support of 8 and a CPAP of 5 for approximately 3 hours. He was given additional sedation holiday today with a pressure support of 12 and CPAP of 5. Unfortunately the patient developed significant tachycardia, hypertension and tachypnea. This all occurred with a daily interruption of sedation and prior to even obtaining any breathing trials today. He has been quite sedate and significantly weak and unable to follow simple commands. Suspect critical illness polyneuropathy. He had previously failed extubation and has been reintubated since 02/10/2020. Blood cultures are positive for Enterococcus faecalis. Catheter tip and urine cultures were negative. White count 5.1. Hemoglobin 11.1. Platelets 204. Sodium 136. Potassium 3.8. Bicarb 28. Creatinine 0.62. Ferritin 144. LDH 645. C- reactive protein less than 5. He remains on Unasyn. Chest x-ray continues to show extensive subcutaneous emphysema and bibasilar airspace disease, stable compared to yesterday. Objective - Vital Signs Vital signs: Vital Signs Temp 98.6 F 02/16/20 12:00 Pulse 71 02/16/20 12:00 Resp 26 H 02/16/20 12:00 BP 147/128 02/16/20 11:00 Pulse Ox 94 L 02/16/20 12:00 Intake & Output 02/15/20 02/16/20 02/16/20 18:59 06:59 18:59 Intake Total 8518.881 5226.932 449.950 Output Total 3410 1215 545 Balance -2236.680 -105.068 -95.050 Weight 102.9 kg Intake: IV 272 298 190 Ampicillin-Sulbactam 3 gm 100 100 In Sodium Chloride 0.9% 100 ml @ 200 mls/hr IVPB Q6HR [facility] Rx#:[id number] Meropenem 1 gm In Sodium 140 Chloride 0.9% 100 ml @ 200 mls/hr IVPB Q8HR [facility] Rx#:[id number] Normal Saline Pressure 72 78 30 Bag Sodium Chloride 0.9% 1, 60 120 60 000 ml @ 20 mls/hr IV . Q24H [facility] Rx#:[id number] Intake, IV Titration 656.320 295.932 216.950 Amount Ampicillin-Sulbactam 3 gm 100 In Sodium Chloride 0.9% 100 ml @ 200 mls/hr IVPB Q6H [facility] Rx#:[id number] Clevidipine Butyrate 25 151.300 0 mg In Empty Bag 1 bag @ 1 MG/HR 2 mls/hr IV .Q24H [facility] Rx#:[id number] Propofol 1,000 mg In 255.020 195.932 25.018 Empty Bag 1 bag @ Titrate IV .Q0M [facility] Rx#: [id number] Sodium Chloride 0.9% 1, 40 000 ml @ 20 mls/hr IV . Q24H [facility] Rx#:[id number] fentaNYL (PF) 2,500 mcg 250 151.932 In Sodium Chloride 0.9% 200 ml @ 1.5 MCG/KG/HR 15 .69 mls/hr IV .[id number] [facility] Rx#:[id number] Tube Feeding 245 516 43 Output: Urine 3110 1215 545 Stool 300 Other: Voiding Method Indwelling Catheter Indwelling Catheter # Voids 1 ABP, PAP, CO, CI - Last Documented Arterial Blood Pressure 158/65 - Exam GENERAL EXAM: Intubated, sedated, 64-year-old gentleman on 40% FiO2 to maintain O2 saturations in the 90s. He remains arousable to verbal stimuli. Grimacing to tactile stimuli. Extremely weak. Unable to move his arms and legs at this point. Became hypertensive, tachycardic, tachypneic during sedation holiday. Unable to obtain weaning parameters. HEAD: Normocephalic. EYES: Sluggish reaction of pupils, equal size. NOSE: Clear with pink turbinates. THROAT: Oral endotracheal and gastric tube secured in place. No erythema or exudates. NECK: No masses, no JVD. CHEST: No chest wall deformity. LUNGS: Equal air entry with few scattered rhonchi, crackles in the posterior bases. CVS: S1 and S2 normal with no audible murmur, regular rhythm. ABDOMEN: No hepatosplenomegaly, normal bowel sounds, no guarding or rigidity. SPINE: No scoliosis or deformity SKIN: No rashes CENTRAL NERVOUS SYSTEM: The patient is arousable. Pupils are equal and reactive to light. No facial asymmetry. Extensive motor weakness. Reflexes are done in all 4 extremities. Muscle tone is weak. No fasciculation. No clonus and no Babinski. The patient is able to communicate by facial expressions and moving his eyebrows and blinking. EXTREMITIES: There is noted peripheral edema. No clubbing, no cyanosis. Peripheral pulses are intact. - Labs CBC & Chem 7: 02/16/20 04:20 02/16/20 04:20 Labs: Abnormal Lab Results - Last 24 Hours (Table) 02/15/20 02/16/20 02/16/20 Range/Units 13:03 04:20 04:20 RBC 3.65 L (4.30-5.90) m/uL Hgb 11.1 L (13.0-17.5) gm/dL Hct 34.8 L (39.0-53.0) % RDW 19.0 H (11.5-15.5) % Lymphocytes # 0.7 L (1.0-4.8) k/uL ABG pH (7.35-7.45) ABG pO2 (83-108) mmHg ABG HCO3 (21-25) mmol/L ABG Total CO2 (19-24) mmol/L ABG O2 Saturation (94-97) % Sodium 136 L (137-145) mmol/L BUN 27 H (9-20) mg/dL Creatinine 0.62 L (0.66-1.25) mg/dL POC Glucose (mg/dL) 113 H (75-99) mg/dL ALT 66 H (4-49) U/L Lactate Dehydrogenase 645 H (313-618) U/L Creatine Kinase <20 L (55-170) U/L Total Protein 4.4 L (6.3-8.2) g/dL Albumin 2.3 L (3.5-5.0) g/dL 02/16/20 02/16/20 Range/Units 05:08 12:21 RBC (4.30-5.90) m/uL Hgb (13.0-17.5) gm/dL Hct (39.0-53.0) % RDW (11.5-15.5) % Lymphocytes # (1.0-4.8) k/uL ABG pH 7.46 H (7.35-7.45) ABG pO2 64 L (83-108) mmHg ABG HCO3 27 H (21-25) mmol/L ABG Total CO2 29 H (19-24) mmol/L ABG O2 Saturation 93.0 L (94-97) % Sodium (137-145) mmol/L BUN (9-20) mg/dL Creatinine (0.66-1.25) mg/dL POC Glucose (mg/dL) 115 H (75-99) mg/dL ALT (4-49) U/L Lactate Dehydrogenase (313-618) U/L Creatine Kinase (55-170) U/L Total Protein (6.3-8.2) g/dL Albumin (3.5-5.0) g/dL Microbiology - Last 24 Hours (Table) 02/12/20 05:32 Blood Culture - Preliminary Blood No Growth after 96 hours 02/10/20 16:15 Blood Culture - Preliminary Blood No Growth after 120 hours 02/13/20 16:05 Blood Culture - Preliminary Blood No Growth after 48 hours 02/13/20 11:25 Catheter Tip Culture - Final Catheter Tip Assessment and Plan Assessment: 1 acute bilateral Covid 19 pneumonia . This is a extensive pneumonia and the patient was been immunosuppressed on methotrexate for rheumatoid arthritis. this patient has been intubated on a mechanical ventilator since 01/30/2020 and a chest x-ray still showing diffuse bilateral pulmonary infiltras more so on the right upper lobe. Continues to be sedated. He completed Plaquenil. He received Actemra , [id number] therapy, and the patient continues to systemic steroids. D-dimer was elevated and the patient was placed on Lovenox. The patient's inflammatory markers including ferritin LDH and C-reactive protein or improved. This patient had a lengthy course here in the hospital. He was extubated earlier last week and he failed extubation and was reintubated on 02/10/2020. He became septic with Enterococcus faecalis. He went into worsening ARDS and he gradually improved with his oxygenation, lung compliance, hemodynamics and white cell count and hypotension all improved with a combination of antibiotics and ventilator support. 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 He is unable to move his arms and legs. He is awake. He is able to do facial expressions and communicate with us. He did have a total of 3 hours of CPAP trial yesterday. He has developed subcutaneous emphysema which has not affected his respiratory out, this point in time. He does not have any pneumothorax. His sepsis has been treated. The patient has been switched to Unasyn. Repeat blood cultures are negative. No fever. No hypotension. He is off pressors. He is receiving enteral feeding for nutritional support. The patient was given another sedation holiday today 02/16/2020 but did develop significant hypertension, tachycardia and tachypnea prior to being able to perform any weaning parameters. 2 acute hypoxic respiratory failure secondary to above, with secondary ARDS, details discussed above 3 episodic fever secondary to above, Recovered 4 diarrhea due to GI manifestation of Covid 19 infection, improved, and his diarrhea recurred and the patient is currently has a fecal management system in stool for C. diff is being evaluated. 6 lymphopenia secondary to Covid 19 infection, improved 7 rheumatoid arthritis maintained on methotrexate on outpatient basis as such the patient has been chronically immunosuppressed. 8 fluid overload, was being treated with IV Lasix which is currently on hold. 9 sepsis secondary to enterococcus with secondary leukocytosis and elevated and in the pro-calcitonin and hypotension. All of these abnormalities improved with antibiotic coverage as the patient is currently on a combination of Unasyn. Triple lumen catheter was removed from the right femoral vein and was positioned in the left IJ. Catheter tip revealed no growth. Follow-up blood culture revealed no growth. 10 episode of atrial fibrillation with RVR, recovered and the patient is back to normal sinus rhythm Plan: The patient was seen and evaluated by Dr. Simpson Chest x-ray, ABGs and labs reviewed He did not tolerate daily interruption of sedation today Unable to obtain weaning parameters Suspect moderate to severe critical illness polyneuropathy The plan will be for tracheostomy and PEG tube placement Prognosis remains quite guarded We will continue to follow and make further recommendations based on his clinical status. Critical care time 35 minutes I, the cosigning physician, performed a history & physical examination of the patient. Lungs sounds with bilateral scattered rhonchi, crackles in the posterior bases. Maintaining good O2 saturations in the 90s on 40% FiO2 on the mechanical ventilator. I discussed the assessment and plan of care with my nurse practitioner, Asiya De La Rosa. I attest to the above note as dictated by her. Time with Patient: Greater than 30
--- NOTE | 2020-02-16 14:46 | P.GSCN ---
History of Present Illness Consult date: 02/16/20 Reason for Consult: trach peg Requesting physician: Koko Simpson History of present illness: CHIEF COMPLAINT: Trach and PEG HISTORY OF PRESENT ILLNESS: 64-year-old male who is currently admitted to the intensive care unit. Patient is positive for Covid19. Patient was intubated on 01/30/2020 and has remained on mechanical ventilation since that time. Attempts at weaning have been unsuccessful. Hence, general surgery was consulted for PEG and trach placement. PAST MEDICAL HISTORY: See list. PAST SURGICAL HISTORY: See list. SOCIAL HISTORY: No illicit drug use. REVIEW OF SYSTEMS: Unable to obtain thorough review of systems secondary to mechanical ventilation PHYSICAL EXAM: VITAL SIGNS: Reviewed. GENERAL: Well-developed in no acute distress. HEENT: No sclera icterus. Extraocular movements grossly intact. Moist buccal mucosa. Head is atraumatic, normocephalic. ABDOMEN: Soft. Nondistended. Nontender. NEUROLOGIC: Unable to thoroughly assess secondary to mechanical ventilation LABORATORY DATA: WBC 5.1. Hemoglobin 11.1. Platelet count 204. Sodium 136. Potassium 3.8. BUN 27. Creatinine 0.62. IMAGING: Chest x-ray: Extensive subcutaneous emphysema. Bibasilar airspace disease remains overall unchanged from 02/15/2020. ASSESSMENT: 1. Acute hypoxic respiratory failure 2. Covid 19 pneumonia PLAN: Repeat Covid testing. Negative covid required before trach and peg Timing of trach and peg to be determined. Will tentatively be scheduled for Sunday Nurse practitioner note has been reviewed by physician. Signing provider agrees with the documented findings, assessment, and plan of care. Past Medical History Past Medical History: Rheumatoid Arthritis (RA) Additional Past Medical History / Comment(s): rheumatoid arthritis History of Any Multi-Drug Resistant Organisms: None Reported Past Surgical History: No Surgical Hx Reported Past Anesthesia/Blood Transfusion Reactions: No Reported Reaction Smoking Status: Former smoker - Past Family History family Family Medical History: No Reported History Medications and Allergies Home Medications Medication Instructions Recorded Confirmed Type Albuterol Inhaler [Ventolin Hfa 2 puff INHALATION RT-TID PRN 01/22/20 01/22/20 History Inhaler] Methotrexate Sodium [Methotrexate] 12.5 mg PO SA 01/22/20 01/22/20 History Omeprazole 20 mg PO DAILY 01/22/20 01/22/20 History Allergies Allergy/AdvReac Type Severity Reaction Status Date / Time No Known Allergies Allergy Verified 01/22/20 22:50 Surgical - Exam Vital Signs Temp Pulse Resp BP Pulse Ox 98.4 F 73 18 129/76 98 01/22/20 22:15 01/22/20 22:15 01/22/20 22:15 01/22/20 22:15 01/22/20 22:15 Results - Labs 02/16/20 04:20 02/16/20 04:20 Abnormal Lab Results - Last 24 Hours (Table) 02/15/20 02/15/20 02/16/20 Range/Units 11:22 13:03 04:20 RBC 3.65 L (4.30-5.90) m/uL Hgb 11.1 L (13.0-17.5) gm/dL Hct 34.8 L (39.0-53.0) % RDW 19.0 H (11.5-15.5) % Lymphocytes # 0.7 L (1.0-4.8) k/uL ABG pH 7.56 H* (7.35-7.45) ABG pO2 63 L (83-108) mmHg ABG HCO3 32 H (21-25) mmol/L ABG Total CO2 33 H (19-24) mmol/L ABG O2 Saturation 93.9 L (94-97) % Sodium (137-145) mmol/L BUN (9-20) mg/dL Creatinine (0.66-1.25) mg/dL POC Glucose (mg/dL) 113 H (75-99) mg/dL ALT (4-49) U/L Lactate Dehydrogenase (313-618) U/L Creatine Kinase (55-170) U/L Total Protein (6.3-8.2) g/dL Albumin (3.5-5.0) g/dL 02/16/20 02/16/20 Range/Units 04:20 05:08 RBC (4.30-5.90) m/uL Hgb (13.0-17.5) gm/dL Hct (39.0-53.0) % RDW (11.5-15.5) % Lymphocytes # (1.0-4.8) k/uL ABG pH 7.46 H (7.35-7.45) ABG pO2 64 L (83-108) mmHg ABG HCO3 27 H (21-25) mmol/L ABG Total CO2 29 H (19-24) mmol/L ABG O2 Saturation 93.0 L (94-97) % Sodium 136 L (137-145) mmol/L BUN 27 H (9-20) mg/dL Creatinine 0.62 L (0.66-1.25) mg/dL POC Glucose (mg/dL) (75-99) mg/dL ALT 66 H (4-49) U/L Lactate Dehydrogenase 645 H (313-618) U/L Creatine Kinase <20 L (55-170) U/L Total Protein 4.4 L (6.3-8.2) g/dL Albumin 2.3 L (3.5-5.0) g/dL Microbiology - Last 24 Hours (Table) 02/12/20 05:32 Blood Culture - Preliminary Blood No Growth after 96 hours 02/10/20 16:15 Blood Culture - Preliminary Blood No Growth after 120 hours 02/13/20 16:05 Blood Culture - Preliminary Blood No Growth after 48 hours 02/13/20 11:25 Catheter Tip Culture - Final Catheter Tip Diabetes panel 02/16/20 Range/Units 04:20 Sodium 136 L (137-145) mmol/L Potassium 3.8 (3.5-5.1) mmol/L Chloride 107 (98-107) mmol/L Carbon Dioxide 28 (22-30) mmol/L BUN 27 H (9-20) mg/dL Creatinine 0.62 L (0.66-1.25) mg/dL Glucose 82 (74-99) mg/dL Calcium 8.4 (8.4-10.2) mg/dL AST 27 (17-59) U/L ALT 66 H (4-49) U/L Alkaline Phosphatase 60 (38-126) U/L Total Protein 4.4 L (6.3-8.2) g/dL Albumin 2.3 L (3.5-5.0) g/dL Calcium panel 02/16/20 Range/Units 04:20 Calcium 8.4 (8.4-10.2) mg/dL Albumin 2.3 L (3.5-5.0) g/dL Pituitary panel 02/16/20 Range/Units 04:20 Sodium 136 L (137-145) mmol/L Potassium 3.8 (3.5-5.1) mmol/L Chloride 107 (98-107) mmol/L Carbon Dioxide 28 (22-30) mmol/L BUN 27 H (9-20) mg/dL Creatinine 0.62 L (0.66-1.25) mg/dL Glucose 82 (74-99) mg/dL Calcium 8.4 (8.4-10.2) mg/dL Adrenal panel 02/16/20 Range/Units 04:20 Sodium 136 L (137-145) mmol/L Potassium 3.8 (3.5-5.1) mmol/L Chloride 107 (98-107) mmol/L Carbon Dioxide 28 (22-30) mmol/L BUN 27 H (9-20) mg/dL Creatinine 0.62 L (0.66-1.25) mg/dL Glucose 82 (74-99) mg/dL Calcium 8.4 (8.4-10.2) mg/dL Total Bilirubin 0.4 (0.2-1.3) mg/dL AST 27 (17-59) U/L ALT 66 H (4-49) U/L Alkaline Phosphatase 60 (38-126) U/L Total Protein 4.4 L (6.3-8.2) g/dL Albumin 2.3 L (3.5-5.0) g/dL
[2020-02-16] MEDS: FLUCONAZOLE 100 MG TAB NG-TUBE SCH (15:48)
--- NOTE | 2020-02-16 18:06 | P.PN ---
Subjective Progress Note Date: 02/16/20 Principal diagnosis: COVID 19 64-year-old male was admitted for acute hypoxic respiratory failure secondary to COVID 19 diagnosis. He was started on hydroxychloroquine, Rocephin and doxycycline along with albuterol inhaler and placed on droplet precautions. He was started on low-dose IV steroids and given supplemental O2 maintain maintain O2 saturation greater than 92%. He was initially on 6 L nasal cannula which progressively increased to 15 L high flow. Awake proning was attempted without much relief. Patient continued to deteriorate and pulmonology was consulted. Pulmonology recommended transfer to ICU for closer monitoring on 01/29/2020. He was intubated on 01/30/2020 overnight. He received 2 doses of Tocolizumab on February 01 and February 02. He continues to be intubated. There was some question of constipation for which he was given lactulose. He had multiple episodes of diarrhea after that. Patient was noted to be in A. fib with RVR on 02/11/2020. Cardiology was consulted and he was started on a amiodarone drip. He continues to be intubated. Patient was seen and examined in the morning. He continues to be intubated. Patient failed sedating holiday today, severely agitated. Rate is at 24. Tidal volume 480. FiO2 40 %. PEEP is at 5. Plans to consult surgery from possible trach and PEG. Chest x-ray shows continued diffuse interstitial opacities and extensive subcutaneous emphysema. Blood cultures showing group B enterococcus, currently on Unasyn. Right groin catheter replaced and sent for cultures. Leukocytosis resolved. CRP negative. LDH slightly decreased to 645. Objective - Vital Signs Vital signs: Vital Signs Temp 98.2 F 02/16/20 16:00 Pulse 55 L 02/16/20 17:00 Resp 24 02/16/20 17:00 BP 115/63 02/16/20 17:00 Pulse Ox 98 02/16/20 17:00 Intake & Output 02/15/20 02/16/20 02/16/20 18:59 06:59 18:59 Intake Total 7724.177 9359.932 801.284 Output Total 3410 1215 995 Balance -2236.680 -105.068 -193.716 Weight 102.9 kg 102.9 kg Intake: IV 272 298 214 Ampicillin-Sulbactam 3 gm 100 100 In Sodium Chloride 0.9% 100 ml @ 200 mls/hr IVPB Q6HR [facility] Rx#:[id number] Meropenem 1 gm In Sodium 140 Chloride 0.9% 100 ml @ 200 mls/hr IVPB Q8HR [facility] Rx#:[id number] Normal Saline Pressure 72 78 54 Bag Sodium Chloride 0.9% 1, 60 120 60 000 ml @ 20 mls/hr IV . Q24H [facility] Rx#:[id number] Intake, IV Titration 656.320 295.932 351.284 Amount Ampicillin-Sulbactam 3 gm 100 In Sodium Chloride 0.9% 100 ml @ 200 mls/hr IVPB Q6H [facility] Rx#:[id number] Clevidipine Butyrate 25 151.300 28.433 mg In Empty Bag 1 bag @ 1 MG/HR 2 mls/hr IV .Q24H [facility] Rx#:[id number] Propofol 1,000 mg In 255.020 195.932 90.919 Empty Bag 1 bag @ Titrate IV .Q0M [facility] Rx#: [id number] Sodium Chloride 0.9% 1, 80 000 ml @ 20 mls/hr IV . Q24H [facility] Rx#:[id number] fentaNYL (PF) 2,500 mcg 250 151.932 In Sodium Chloride 0.9% 200 ml @ 1.5 MCG/KG/HR 15 .69 mls/hr IV .[id number] [facility] Rx#:[id number] Tube Feeding 245 516 236 Output: Urine 3110 1215 995 Stool 300 Other: Voiding Method Indwelling Catheter Indwelling Catheter Indwelling Catheter # Voids 1 ABP, PAP, CO, CI - Last Documented Arterial Blood Pressure 158/65 - Exam General: [non toxic], [intubated], [appears at stated age] Derm: [warm], [dry], [fullness of the neck with crepitus] Head: [atraumatic], [normocephalic], [symmetric] Eyes: [EOMI], [no lid lag], [anicteric sclera] Mouth: [no lip lesion], [mucus membranes moist] Cardiovascular: [S1S2 reg], [no murmur], [positive DP pulse bilateral], Lungs: [Coarse breath sounds bilateral], [no rhonchi, no rales] , [no accessory muscle use] Abdominal: [soft], [ nontender to palpation], [decreased bowel sounds], [no appreciable organomegaly] Ext: [no gross muscle atrophy], [2+ pitting edema in all 4 extremities], [no contractures] Neuro: [Unable to determine] Psych: [Unable to determine] - Labs CBC & Chem 7: 02/16/20 04:02/16/20 04:20 Labs: Abnormal Lab Results - Last 24 Hours (Table) 02/16/20 02/16/20 02/16/20 Range/Units 04: 04: 05:08 RBC 3.65 L (4.30-5.90) m/uL Hgb 11.1 L (13.0-17.5) gm/dL Hct 34.8 L (39.0-53.0) % RDW 19.0 H (11.5-15.5) % Lymphocytes # 0.7 L (1.0-4.8) k/uL ABG pH 7.46 H (7.35-7.45) ABG pO2 64 L (83-108) mmHg ABG HCO3 27 H (21-25) mmol/L ABG Total CO2 29 H (19-24) mmol/L ABG O2 Saturation 93.0 L (94-97) % Sodium 136 L (137-145) mmol/L BUN 27 H (9-20) mg/dL Creatinine 0.62 L (0.66-1.25) mg/dL POC Glucose (mg/dL) (75-99) mg/dL ALT 66 H (4-49) U/L Lactate Dehydrogenase 645 H (313-618) U/L Creatine Kinase <20 L (55-170) U/L Total Protein 4.4 L (6.3-8.2) g/dL Albumin 2.3 L (3.5-5.0) g/dL Coronavirus (PCR) (Not Detectd) 02/16/20 02/16/20 Range/Units 12:21 15:15 RBC (4.30-5.90) m/uL Hgb (13.0-17.5) gm/dL Hct (39.0-53.0) % RDW (11.5-15.5) % Lymphocytes # (1.0-4.8) k/uL ABG pH (7.35-7.45) ABG pO2 (83-108) mmHg ABG HCO3 (21-25) mmol/L ABG Total CO2 (19-24) mmol/L ABG O2 Saturation (94-97) % Sodium (137-145) mmol/L BUN (9-20) mg/dL Creatinine (0.66-1.25) mg/dL POC Glucose (mg/dL) 115 H (75-99) mg/dL ALT (4-49) U/L Lactate Dehydrogenase (313-618) U/L Creatine Kinase (55-170) U/L Total Protein (6.3-8.2) g/dL Albumin (3.5-5.0) g/dL Coronavirus (PCR) Detected A (Not Detectd) Microbiology - Last 24 Hours (Table) 02/12/20 05:32 Blood Culture - Preliminary Blood No Growth after 96 hours 02/10/20 16:15 Blood Culture - Preliminary Blood No Growth after 120 hours 02/13/20 16:05 Blood Culture - Preliminary Blood No Growth after 48 hours Assessment and Plan Assessment: Acute hypoxic respiratory failure, sepsis with enterococcus bacteremia, COVID 19 pneumonia, possible bacterial pneumonia Atrial fibrillation with RVR Diarrhea Immunocompromised secondary to methotrexate for history of rheumatoid arthritis Subcutaneous emphysema around the neck Chest x-ray remained stable, bilateral multifocal infiltrates. Catheter tip culture positive for coagulase-negative staph. Sputum culture positive for Fiordaliza albicans. Blood culture positive for group D enterococcus, repeat blood culture negative at 24 hours. Plans: Meropenem and vancomycin switched to Unasyn. Patient continues to be on ascorbic acid. Ventilator support as per pulmonology. Solu-Medrol switched prednisone. Infectious disease and pulmonology following. Continue to trend inflammatory markers. Plans for possible trach and PEG by Surgery. Currently sinus rhythm. Plans: Discontinue amiodarone drip. Continue metoprolol as needed. C. diff negative. Likely related to lactulose. Subcutaneous emphysema around his neck will be monitored. [Patient failed sedation holiday. Surgery consulted for possible trach and PEG. Prognosis is guarded. Inflammatory markers improving. He is pending clinical improvement.]
[2020-02-16 18:29] LABS: Glucose,Whole Blood 101 mg/dL (75-99)
--- NOTE | 2020-02-16 18:49 | PN ---
PROGRESS NOTE DATE OF SERVICE: 02/16/2020 REASON FOR FOLLOWUP: Pneumonia. INTERVAL HISTORY: The patient is currently afebrile. The patient is hemodynamically stable. FiO2 is currently 40%. No significant purulent secretion through the ET or any diarrhea reported. PHYSICAL EXAMINATION: Blood pressure 115/63 with a pulse of 53, temperature 98.2. He is 99% on 40% FiO2. General description is a middle-aged male intubated on the vent. RESPIRATORY SYSTEM: Unlabored breathing with decreased breath sounds at the base. No wheeze. HEART: S1, S2. Regular rate and rhythm. ABDOMEN: Soft. No tenderness. LABS: Hemoglobin is 11.1, white count 5.1. BUN of 27, creatinine 0.62. DIAGNOSTIC IMPRESSION AND PLAN: Patient with acute respiratory failure which is multifactorial in this patient who did have a component of pneumonia and also with Enterococcus faecalis bacteremia, concern for possible catheter tip, which has been discontinued. Patient is covered with Unasyn and Diflucan; to continue and monitor his clinical course closely. MMODL / IJN: [id number] /
[2020-02-16] MEDS: fentaNYL (PF) 2,500 MCG in SODIUM CHLORIDE 0.9% 200 ML IV SCH (19:08)
[2020-02-16] MEDS: SODIUM CHLORIDE 0.9% 1,000 ML IV SCH (19:09)
[2020-02-16] MEDS: CHLORHEXIDINE GLUCONATE 15 ML CUP MUCOUS MEM SCH (20:31)
[2020-02-17] MEDS: NOREPINEPHRINE 4 MG in SODIUM CHLORIDE 0.9% 250 ML IV SCH ×2 (00:10→09:55)
[2020-02-17] MEDS: PROPOFOL 1,000 MG in EMPTY BAG 1 BAG IV SCH ×8 (00:12→23:43)
[2020-02-17 00:19] LABS: Glucose,Whole Blood 107 mg/dL (75-99)
[2020-02-17] MEDS: INSULIN ASPART (NovoLOG) 100 UNIT/ML VIAL SQ SCH ×4 (00:21→18:30)
[2020-02-17] MEDS: AMPICILLIN-SULBACTAM 3 GM in SODIUM CHLORIDE 0.9% 100 ML IVPB SCH ×4 (03:38→21:25)
[2020-02-17 05:23] LABS: Anisocytosis Slight; Basophils % (A) 0 %; Eosinophils # (A) 0.3 k/uL (0-0.7); Eosinophils % (A) 5 %; HCT 33.5 % (39.0-53.0); Hypochromasia Slight; Lymphocytes # (A) 0.8 k/uL (1.0-4.8); Lymphocytes % (A) 15 %; MCH 31.2 pg (25.0-35.0); MCHC 32.8 g/dL (31.0-37.0); MCV 95.2 fL (80.0-100.0); Macrocytosis Slight; Mean Platelet Volume 7.8; Monocytes # (A) 0.2 k/uL (0-1.0); Monocytes % (A) 4 %; Neutrophils # (A) 3.8 k/uL (1.3-7.7); Neutrophils % (A) 74 %; Platelet Count 210 k/uL (150-450); RBC 3.52 m/uL (4.30-5.90); RDW 19.3 % (11.5-15.5); WBC 5.2 k/uL (3.8-10.6)
[2020-02-17 05:47] LABS: ALT 56 U/L (4-49); AST 23 U/L (17-59); African American GFR (CKD) >90 (>60 ml/min/1.73 sqM); Albumin 2.3 g/dL (3.5-5.0); Alkaline Phosphatase 66 U/L (38-126); Anion Gap 1 mmol/L; Blood Urea Nitrogen 25 mg/dL (9-20); Calcium 8.1 mg/dL (8.4-10.2); Carbon Dioxide 27 mmol/L (22-30); Chloride 107 mmol/L (98-107); Creatine Kinase <20 U/L (55-170); Glucose 90 mg/dL (74-99); LDH 532 U/L (313-618); Non-African American GFR(CKD) >90 (>60 ml/min/1.73 sqM); Potassium 3.9 mmol/L (3.5-5.1); Sodium 135 mmol/L (137-145); Total Bilirubin 0.3 mg/dL (0.2-1.3); Total Protein 4.4 g/dL (6.3-8.2)
[2020-02-17 05:52] LABS: C Reactive Protein <5.0 mg/L (<10.0)
[2020-02-17] MEDS ORDERED: Potassium Replacement Protocol 1 EACH MISC MISCELLANE PRN (07:40)
[2020-02-17 07:48] LABS: ABG Base Excess 0.4 mmol/L; ABG HCO3 25 mmol/L (21-25); ABG Oxygen Saturation 96.4 % (94-97); ABG PCO2 37 mmHg (35-45); ABG PH 7.43 (7.35-7.45); ABG PO2 81 mmHg (83-108); ABG TCO2 26 mmol/L (19-24)
[2020-02-17 07:49] LABS: Allen Test Performed? no
[2020-02-17] MEDS: ALBUTEROL HFA INHALER INHALATION SCH ×4 (07:50→20:22)
[2020-02-17] MEDS ORDERED: POTASSIUM BICARBONATE/CIT AC 20 MEQ TABLET.EFF NG-TUBE SCH (08:00)
--- NOTE | 2020-02-17 08:12 | XR ---
EXAMINATION TYPE: XR chest 1V portable DATE OF EXAM: 02/17/2020 Comparison: 02/16/2020 Clinical History: 64-year-old male ET tube placement, assess lungs Findings: ET tube is satisfactory, tip approximately 4.8 cm from the lore. NG tube courses below the diaphrag m. Left IJ CVC tip at the lower SVC. Heart normal size. Extensive subcutaneous emphysema along both s ides of the thorax limit the underlying lung parenchyma. Diffuse interstitial change is similar more patchy and confluent at the left lower lung. Impression: 1. Continued extensive bilateral subcutaneous emphysema. 2. Diffuse interstitial infiltrate and some more patchy basilar infiltrate is relatively similar.
[2020-02-17] MEDS ORDERED: FUROSEMIDE 10 MG/ML 4 ML VIAL IV STA (08:33)
[2020-02-17] MEDS: CHLORHEXIDINE GLUCONATE 15 ML CUP MUCOUS MEM SCH ×2 (09:53→21:26)
[2020-02-17] MEDS: PANTOPRAZOLE 40 MG/10 ML VIAL IVP SCH (09:54)
[2020-02-17] MEDS: ASCORBIC ACID 500 MG TAB OG-TUBE SCH ×2 (09:54→21:26)
[2020-02-17] MEDS: ENOXAPARIN 80 MG/0.8 ML SYRINGE SQ SCH ×2 (09:54→21:26)
[2020-02-17] MEDS: ZINC SULFATE 220 MG CAP PO SCH (09:54)
[2020-02-17] MEDS: predniSONE 10 MG TAB PO SCH (09:54)
[2020-02-17 10:57] LABS: Ferritin 147.6 ng/mL (22.0-322.0)
[2020-02-17 11:57] LABS: Glucose,Whole Blood 102 mg/dL (75-99)
--- NOTE | 2020-02-17 12:19 | P.PN ---
Subjective Progress Note Date: 02/17/20 Principal diagnosis: acute covid 19 pneumonitis was asked to evaluate this patient who is a 64-year-old male who has been diagnosed having acute covid 19 pneumonia and the patient has been progressively becoming hypoxic as the patient was on few liters about 2 by nasal cannula and subsequently dioxin fluids and she is up to 6 L and then 8 L and currently is on 10 L of oxygen by nasal cannula. The decompensation of worsening the oxygenation has occurred over the past 24 hours. At this point in time the patient is having difficulty breathing which is mild. He has a dry cough. He is sleeping in a prone body position. Seems to be making him more comfortable. While on 10 L of oxygen, is pulse oxing around 96%. His heart rate is at 59. BP is 111/67. He was having on and off low-grade fever throughout the hospitalization and his last temperature spike was 100.3 from 01/24/2020 at 8:00 in the evening. He was given doxycycline Rocephin and Plaquenil. He was placed on zinc sulfate and I also added IV Solu-Medrol 40 mg every 12 hours. The patient had a chest x-ray showing worsening bilateral pulmonary infiltrates and pneumonia compared to the original chest x-ray that was done on 01/23/2020. The blood gas today that was done on a 65% FiO2 showed a pH of 7.46 with a pCO2 of 26 and pO2 of 63 consistent with hypoxemia and respiratory alkalosis. White cell count was suppressed at 3.1. The patient has lymphopenia with a lymphocyte count of 0.2. The patient had a pro-calcitonin level of 0.17. LDH level was 1067 at a time of admission and hasn't been rechecked.. This patient got chest her dose from [facility]. He reported diarrhea around 3 weeks ago and his been having progressive shortness of breath over the past 2-3 weeks. He denies having any body aches. He is extensively fatigued. He was in [place] for spring. He has history of rheumatoid arthritis and the patient has been taking methotrexate for many years regarding his RA On 01/26/2020 patient seen in follow-up on medical surgical floor. Is currently on 11 L per high flow oxygen, his pulse ox is 93%, he is been afebrile, hemodynamically patient is stable, non-tachycardic. Yesterday's chest x-ray has been reviewed showing worsening bilateral pneumonias, patient is on combination of doxycycline, Rocephin, hydroxy chloroquine, and IV Solu-Medrol 40 mg every 12 hours, patient is on zinc 220 mg daily, and Ventolin inhaler. Still dyspnea, but no acute distress. Follow-up labs have been reviewed today, white blood cell count is up to 5.9, hemoglobin is 12.8, sodium is 138, potassium is 3.3, yesterday's LDH was trending up, and CRP was also trending up. Pro-calcitonin was in the intermediate range of 0.17. Lung sounds reveal crackles at bilateral bases. He states although she is still short of breath he overall feels somewhat better. On 01/27/2020 patient seen in follow-up on medical surgical floor. Patient is awake and alert, his oxygenation demand did increase overnight, he is currently on 13 L per high flow nasal cannula, he is satting about 93%, however he appears to be in no acute distress, mildly dyspneic, still has a dry cough, lung sounds reveal some crackles in bilateral lungs, no rhonchi or wheezing, patient is positive for Covid 19 infection, and she remains on a regime of hydroxychloroquine, IV Solu-Medrol, Rocephin and doxycycline. Afebrile. Today's chest x-ray has been reviewed showing persistent diffuse interstitial infiltrates, improved lung volumes with some improvement in aeration of the lung bases. Continue current medical treatment, today's labs have been reviewed, d- dimer is up to 1.44, no leukocytosis, hemoglobin is 12.1, sodium is 137, potassium 3.3, chloride is 109, CO2 is 20, B1 is 14 creatinine 0.70, LDH slightly trended up to 1728, CK is 29, CRP has significantly improved and is down to 49 On 01/28/2020 patient seen in follow-up on general medical floor. He is Covid 19 positive, FiO2 is down to 11 L on today's exam, from 13 L on yesterday's exam, his pulse ox is 92%. We will to be in any acute distress, breathing is comfortable, lung sounds reveal some minimal crackles at bilateral bases, patient remains on Rocephin, azithromycin has been discontinued, and he has completed a course of Plaquenil. Afebrile in the last 24 hours. Patient was reevaluated today on 01/29/20, he was seen on the regular medical floor, and he is on high flow nasal cannula at 13 L/m, O2 saturation is marginal anywhere between 90-94% at best patient has shortness of breath, but does not seem to be in distress. He is breathing very comfortably. His chest x-ray showed slight worsening. Crackles at the bases bilaterally noted. After evaluating the patient, and considering that his O2 saturation has been fluctuating between 84 and 95%, I recommended observing the patient in the ICU, and I transferred the patient to the ICU. ABG on high flow nasal cannula showed a pO2 of 64 he CO2 of 31 pH of 7.52. His d-dimer is 2.30. CBC is normal basic metabolic profile is normal however his LDH is 6. C-reactive protein is 47. Reevaluated today on 01/30/20, patient was transferred yesterday to the intensive care unit, and around midnight, patient desaturated significantly, and we could not maintain his O2 saturation in the 90s. Patient was also noted by the nurse taking care of him to become more tachypneic, and he was using more and more of his accessory muscles. I was notified about the patient, and I recommended immediate intubation. Patient is now on mechanical ventilation, his ventilatory settings are assist control rate of 20 and this was increased to 26. His tidal volume was 450 assist-control rate FiO2 of 60% which was cut down to 50%, and PEEP was at 5 however I increased the PEEP to 10 today. I increased the flow rate to 70 L/m. Patient seems to be clinically dry, hence I recommended a liter of IV fluid in the form of 0.9 normal saline. I have also recommended that he remains on propofol at 50 fentanyl at 0.25 mcg/kg/h, and he is on Nimbex. Chest x-ray clearly shows evidence of diffuse interstitial infiltrates consistent with covid 19 pneumonitis. ABG this morning showed a pO2 of 116 pCO2 of 88 pH of 7.13, hence adjustment was made on his ventilatory settings. And rate was increased. PEEP was increased. And FiO2 was brought down to 50%. LDH today is 1827. And C-reactive protein is 47.4. Patient was reevaluated today on 01/31/20, remains intubated and mechanically ventilated. Patient is on assist control rate of 26 tidal volume is 450 FiO2 is 40% and PEEP is 10 however I cut it down to 8 today. And increased his rate to 30. Kept him on the same tidal volume of 4.50. The reason I made the change was because of his ABG showing pO2 of 116 pCO2 of 67 and pH of 7.27. His inflammatory markers are trending down. C-reactive protein is 44. Peak airway pressure is 26, plateau pressure is 21. Patient remains on propofol at 3 0 mcg/kg/m, fentanyl at 0.5 mcg/kg/h and on Nimbex at 3 mcg/kg/m. Off norepinephrine, remains on IV fluid 0.9 normal saline at 50 mL per hour.remains on enteral feeding.labs and chest x-ray were reviewed.chest x-ray continues to show patchy bilateral interstitial infiltrates Reevaluated today on 02/01/20, patient remains in the ICU, intubated and mechanically ventilated. His ventilator settings are assist control rate of 30 tidal volume is 450 FiO2 is 40% and I increased to 45%. PEEP is at 8. Patient remains on fentanyl 0.5 Nimbex at 3 g and propofol at 60 mcg/kg/m. Chest x-ray continues to show patchy bilateral infiltrates, not much of a significant change since yesterday. ABG showed a pO2 of 63 pCO2 of 63 pH of 7.37, hence FiO2 was increased to 40% and The same at 8. CBC is relatively normal. Lymphocytes remain low however. Platelets are normal. D-dimer is 1.40. Basic metabolic profile is normal. LDH is improving, down to 693 from as high as over 2000. C- reactive protein is down from 201 now it is 42.7, steadily improving. Hence considering the improvement, and considering the patient has less O2 requirement, I would likely hold Nimbex today, assess the patient off Nimbex and decide whether we could further wean or hold sedation and give the patient any weaning trial possibly today or in the next 24 hours. The patient is seen today 02/16/2020 in follow-up in the intensive care unit. He remains intubated on the mechanical ventilator. Currently in VC plus mode with a tidal volume 450 expiratory time 1.0. Rate of 24. FiO2 40% and a PEEP of 5. Morning blood gases reveal a P O2 of 64, pCO2 39, pH 7.46. He remains sedated on propofol currently at 40 mcg/kg/m. Fentanyl at 1.5 mcg/kg per hour. Cleviprex at 1 mg per hour. Being nourished with vital HP at 43 ML's which is go al. Yesterday he tolerated pressure support of 8 and a CPAP of 5 for approximately 3 hours. He was given additional sedation holiday today with a pressure support of 12 and CPAP of 5. Unfortunately the patient developed significant tachycardia, hypertension and tachypnea. This all occurred with a daily interruption of sedation and prior to even obtaining any breathing trials today. He has been quite sedate and significantly weak and unable to follow simple commands. Suspect critical illness polyneuropathy. He had previously failed extubation and has been reintubated since 02/10/2020. Blood cultures are positive for Enterococcus faecalis. Catheter tip and urine cultures were negative. White count 5.1. Hemoglobin 11.1. Platelets 204. Sodium 136. Potassium 3.8. Bicarb 28. Creatinine 0.62. Ferritin 144. LDH 645. C- reactive protein less than 5. He remains on Unasyn. Chest x-ray continues to show extensive subcutaneous emphysema and bibasilar airspace disease, stable co mpared to yesterday. Reevaluated today on 02/17/20, patient remains in the intensive care unit, intu bated and mechanically ventilated. Yesterday patient failed any attempts for weaning trial. However we will address again today by placing the patient on pressure support of 12 and CPAP. In the meantime the patient remains on mechanical ventilation, his tidal volume is 480 assist control rate of 24 FiO2 is 40% and PEEP is 5. ABG showed a pO2 of 81 pCO2 of 37 pH of 7.43. Remains on fentanyl at 1.5 mcg/kg/m and on the prevent at 40 mcg/kg/m. Chest x-ray continues to show bilateral interstitial infiltrates secondary to Covid 19 pneumonitis. Today I have given the patient a dose of Lasix. And we have recommended increasing Lovenox 80 mg subcu twice a day. I have also raised the concern about possibly giving the patient convalescent plasma if available. In the meantime I would also hold all narcotics and sedatives, and give the patient weaning trial if possible today. Although I am not very confident that the patient will do well, but at least we'll give the patient a trial of weaning if possible. CBC is relatively normal, basic metabolic profile is relatively normal, inflammatory markers were noted, LDH is down to 552 C-reactive protein is less than 5 and ferritin is 147. All are good indicators that the patient is improving. Patient was seen by surgery yesterday, and repeat coronavirus PCR came back positive again they were asked to see him for possible tracheostomy. However now that the PCR remains positive, we'll discuss with surgery plans for tracheostomy. And PEG tube placement. Blood cultures from the were positive for Enterococcus faecalis. Patient is still on Unasyn. Objective - Vital Signs Vital signs: Vital Signs Temp 98.7 F 02/17/20 08:00 Pulse 72 02/17/20 11:00 Resp 24 02/17/20 11:00 BP 134/86 02/17/20 11:00 Pulse Ox 97 02/17/20 11:00 Intake & Output 02/16/20 02/17/20 02/17/20 18:59 06:59 18:59 Intake Total 9808.540 5954.466 981.976 Output Total 1145 1445 1300 Balance 95.419 -151.534 -318.024 Weight 102.9 kg 102.5 kg 102.5 kg Intake: IV 326 312 118 Ampicillin-Sulbactam 3 gm 100 In Sodium Chloride 0.9% 100 ml @ 200 mls/hr IVPB Q6HR [facility] Rx#:[id number] Normal Saline Pressure 66 72 18 Bag Sodium Chloride 0.9% 1, 160 240 100 000 ml @ 20 mls/hr IV . Q24H [facility] Rx#:[id number] Intake, IV Titration 560.419 183.466 418.976 Amount Clevidipine Butyrate 25 39.500 mg In Empty Bag 1 bag @ 1 MG/HR 2 mls/hr IV .Q24H [facility] Rx#:[id number] Norepinephrine 4 mg In 0 Sodium Chloride 0.9% 250 ml @ 0.05 MCG/KG/MIN 18. 993 mls/hr IV .[id number] [facility] Rx#:[id number] Propofol 1,000 mg In 190.919 183.466 177.873 Empty Bag 1 bag @ Titrate IV .Q0M [facility] Rx#: [id number] Sodium Chloride 0.9% 1, 80 000 ml @ 20 mls/hr IV . Q24H [facility] Rx#:[id number] fentaNYL (PF) 2,500 mcg 250.000 241.103 In Sodium Chloride 0.9% 200 ml @ 1.5 MCG/KG/HR 15 .69 mls/hr IV .[id number] [facility] Rx#:[id number] Tube Feeding 354 649 295 Other 149 150 Output: Urine 1145 1445 1300 Other: Voiding Method Indwelling Catheter Indwelling Catheter Indwelling Catheter ABP, PAP, CO, CI - Last Documented Arterial Blood Pressure 175/73 - Exam GENERAL EXAM: Alert, very pleasant, 64-year-old white male, on mechanical ventilation, sedated , on fentanyl and on propofol. HEENT: PERRLA, EOMI, no active, dry mucous membranes, no neck masses, no JVD, no stridor. CHEST: No chest wall deformity. Symmetrical expansion. LUNGS: Fine basilar crackles throughout. CVS: Regular rate and rhythm, normal S1 and S2, no gallops, no murmurs, no rubs ABDOMEN: Soft, nontender. No hepatosplenomegaly, normal bowel sounds, no guarding or rigidity. EXTREMITIES: No clubbing, no edema, no cyanosis, 2+ pulses and upper and lower extremities. MUSCULOSKELETAL: Muscle tone normal. SKIN: No rashes CENTRAL NERVOUS SYSTEM: Sedated, could not be assessed. PSYCHIATRIC: Could not be assessed - Labs CBC & Chem 7: 02/17/20 04:40 02/17/20 04:40 Labs: Abnormal Lab Results - Last 24 Hours (Table) 02/16/20 02/16/20 02/16/20 Range/Units 12:21 15:15 18:24 RBC (4.30-5.90) m/uL Hgb (13.0-17.5) gm/dL Hct (39.0-53.0) % RDW (11.5-15.5) % Lymphocytes # (1.0-4.8) k/uL D-Dimer (<0.60) mg/L FEU ABG pO2 (83-108) mmHg ABG Total CO2 (19-24) mmol/L Sodium (137-145) mmol/L BUN (9-20) mg/dL Creatinine (0.66-1.25) mg/dL POC Glucose (mg/dL) 115 H 101 H (75-99) mg/dL Calcium (8.4-10.2) mg/dL ALT (4-49) U/L Creatine Kinase (55-170) U/L Total Protein (6.3-8.2) g/dL Albumin (3.5-5.0) g/dL Coronavirus (PCR) Detected A (Not Detectd) 02/17/20 02/17/20 02/17/20 Range/Units 00:16 04:40 04:40 RBC 3.52 L (4.30-5.90) m/uL Hgb 11.0 L (13.0-17.5) gm/dL Hct 33.5 L (39.0-53.0) % RDW 19.3 H (11.5-15.5) % Lymphocytes # 0.8 L (1.0-4.8) k/uL D-Dimer 3.03 H (<0.60) mg/L FEU ABG pO2 (83-108) mmHg ABG Total CO2 (19-24) mmol/L Sodium (137-145) mmol/L BUN (9-20) mg/dL Creatinine (0.66-1.25) mg/dL POC Glucose (mg/dL) 107 H (75-99) mg/dL Calcium (8.4-10.2) mg/dL ALT (4-49) U/L Creatine Kinase (55-170) U/L Total Protein (6.3-8.2) g/dL Albumin (3.5-5.0) g/dL Coronavirus (PCR) (Not Detectd) 02/17/20 02/17/20 02/17/20 Range/Units 04:40 05:00 11:56 RBC (4.30-5.90) m/uL Hgb (13.0-17.5) gm/dL Hct (39.0-53.0) % RDW (11.5-15.5) % Lymphocytes # (1.0-4.8) k/uL D-Dimer (<0.60) mg/L FEU ABG pO2 81 L (83-108) mmHg ABG Total CO2 26 H (19-24) mmol/L Sodium 135 L (137-145) mmol/L BUN 25 H (9-20) mg/dL Creatinine 0.59 L (0.66-1.25) mg/dL POC Glucose (mg/dL) 102 H (75-99) mg/dL Calcium 8.1 L (8.4-10.2) mg/dL ALT 56 H (4-49) U/L Creatine Kinase <20 L (55-170) U/L Total Protein 4.4 L (6.3-8.2) g/dL Albumin 2.3 L (3.5-5.0) g/dL Coronavirus (PCR) (Not Detectd) Microbiology - Last 24 Hours (Table) 02/12/20 05:32 Blood Culture - Preliminary Blood No Growth after 120 hours 02/10/20 16:15 Blood Culture - Final Blood No Growth after 144 hours 02/13/20 16:05 Blood Culture - Preliminary Blood No Growth after 72 hours Assessment and Plan Assessment: acute covid 19 pneumonitis. acute hypoxic respiratory failure secondary to above. Patient was extubated earlier last week, however he failed extubation and he had to be reintubated on 02/09. And remains intubated since then. Acute sepsis secondary to Enterococcus faecalis bacteremia. Suspect critical illness polyneuropathy/myopathy. Acute hypercapnic respiratory failure secondary to severe pneumonitis secondary to covid 19. diarrhea due to GI manifestation of Covid 19 infection, resolved. lymphopenia secondary to Covid 19 infection Recommendation: Continue ventilatory support. Continue nutritional support. /enteral feeding. Ventilator settings were noted, unchanged. Continue Unasyn for Enterococcus faecalis bacteremia and sepsis. Give the patient a weaning trial today, patient will be placed on pressure support of 12 and CPAP. Continue daily trials of weaning. Continue GI and DVT prophylaxis. Presently patient is on Lovenox 80 mg subcu twice a day. Continue bronchodilators and low-dose steroids. Patient is on prednisone 30 mg by mouth daily We'll continue to follow. Critical care time is 35 minutes. Time with Patient: Greater than 30
--- NOTE | 2020-02-17 12:40 | P.PN ---
Subjective Progress Note Date: 02/17/20 CHIEF COMPLAINT: Trach and PEG HISTORY OF PRESENT ILLNESS: Patient remains intubated in the intensive care unit. Repeat coronavirus testing remains positive. PHYSICAL EXAM: VITAL SIGNS: Reviewed. GENERAL: Well-developed in no acute distress. HEENT: No sclera icterus. Extraocular movements grossly intact. Moist buccal mucosa. Head is atraumatic, normocephalic. ABDOMEN: Soft. Nondistended. Nontender. NEUROLOGIC: Unable to thoroughly assess secondary to mechanical ventilation ASSESSMENT: 1. Acute hypoxic respiratory failure 2. Covid 19 pneumonia PLAN: Dr. Adhikariania aware of positive repeat Covid results. He would like to proceed with trach and PEG tomorrow as scheduled. Nurse practitioner note has been reviewed by physician. Signing provider agrees with the documented findings, assessment, and plan of care. Objective - Vital Signs Vital signs: Vital Signs Temp 98.7 F 02/17/20 08:00 Pulse 73 02/17/20 12:00 Resp 17 02/17/20 12:00 BP 146/88 02/17/20 12:00 Pulse Ox 98 02/17/20 12:00 Intake & Output 02/16/20 02/17/20 02/17/20 18:59 06:59 18:59 Intake Total 2082.186 2433.466 1052.976 Output Total 1145 1445 1900 Balance 95.419 -151.534 -847.024 Weight 102.9 kg 102.5 kg 102.5 kg Intake: IV 326 312 141 Ampicillin-Sulbactam 3 gm 100 In Sodium Chloride 0.9% 100 ml @ 200 mls/hr IVPB Q6HR [facility] Rx#:[id number] Normal Saline Pressure 66 72 21 Bag Sodium Chloride 0.9% 1, 160 240 120 000 ml @ 20 mls/hr IV . Q24H [facility] Rx#:[id number] Intake, IV Titration 560.419 183.466 418.976 Amount Clevidipine Butyrate 25 39.500 mg In Empty Bag 1 bag @ 1 MG/HR 2 mls/hr IV .Q24H [facility] Rx#:[id number] Norepinephrine 4 mg In 0 Sodium Chloride 0.9% 250 ml @ 0.05 MCG/KG/MIN 18. 993 mls/hr IV .[id number] [facility] Rx#:[id number] Propofol 1,000 mg In 190.919 183.466 177.873 Empty Bag 1 bag @ Titrate IV .Q0M [facility] Rx#: [id number] Sodium Chloride 0.9% 1, 80 000 ml @ 20 mls/hr IV . Q24H [facility] Rx#:[id number] fentaNYL (PF) 2,500 mcg 250.000 241.103 In Sodium Chloride 0.9% 200 ml @ 1.5 MCG/KG/HR 15 .69 mls/hr IV .[id number] [facility] Rx#:[id number] Tube Feeding 354 649 343 Other 149 150 Output: Urine 1145 1445 1900 Other: Voiding Method Indwelling Catheter Indwelling Catheter Indwelling Catheter ABP, PAP, CO, CI - Last Documented Arterial Blood Pressure 169/69 - Labs CBC & Chem 7: 02/17/20 04:40 02/17/20 04:40 Labs: Abnormal Lab Results - Last 24 Hours (Table) 02/16/20 02/16/20 02/17/20 Range/Units 15:15 18:24 00:16 RBC (4.30-5.90) m/uL Hgb (13.0-17.5) gm/dL Hct (39.0-53.0) % RDW (11.5-15.5) % Lymphocytes # (1.0-4.8) k/uL D-Dimer (<0.60) mg/L FEU ABG pO2 (83-108) mmHg ABG Total CO2 (19-24) mmol/L Sodium (137-145) mmol/L BUN (9-20) mg/dL Creatinine (0.66-1.25) mg/dL POC Glucose (mg/dL) 101 H 107 H (75-99) mg/dL Calcium (8.4-10.2) mg/dL ALT (4-49) U/L Creatine Kinase (55-170) U/L Total Protein (6.3-8.2) g/dL Albumin (3.5-5.0) g/dL Coronavirus (PCR) Detected A (Not Detectd) 02/17/20 02/17/20 02/17/20 Range/Units 04:40 04:40 04:40 RBC 3.52 L (4.30-5.90) m/uL Hgb 11.0 L (13.0-17.5) gm/dL Hct 33.5 L (39.0-53.0) % RDW 19.3 H (11.5-15.5) % Lymphocytes # 0.8 L (1.0-4.8) k/uL D-Dimer 3.03 H (<0.60) mg/L FEU ABG pO2 (83-108) mmHg ABG Total CO2 (19-24) mmol/L Sodium 135 L (137-145) mmol/L BUN 25 H (9-20) mg/dL Creatinine 0.59 L (0.66-1.25) mg/dL POC Glucose (mg/dL) (75-99) mg/dL Calcium 8.1 L (8.4-10.2) mg/dL ALT 56 H (4-49) U/L Creatine Kinase <20 L (55-170) U/L Total Protein 4.4 L (6.3-8.2) g/dL Albumin 2.3 L (3.5-5.0) g/dL Coronavirus (PCR) (Not Detectd) 02/17/20 02/17/20 Range/Units 05:00 11:56 RBC (4.30-5.90) m/uL Hgb (13.0-17.5) gm/dL Hct (39.0-53.0) % RDW (11.5-15.5) % Lymphocytes # (1.0-4.8) k/uL D-Dimer (<0.60) mg/L FEU ABG pO2 81 L (83-108) mmHg ABG Total CO2 26 H (19-24) mmol/L Sodium (137-145) mmol/L BUN (9-20) mg/dL Creatinine (0.66-1.25) mg/dL POC Glucose (mg/dL) 102 H (75-99) mg/dL Calcium (8.4-10.2) mg/dL ALT (4-49) U/L Creatine Kinase (55-170) U/L Total Protein (6.3-8.2) g/dL Albumin (3.5-5.0) g/dL Coronavirus (PCR) (Not Detectd) Microbiology - Last 24 Hours (Table) 02/12/20 05:32 Blood Culture - Preliminary Blood No Growth after 120 hours 02/10/20 16:15 Blood Culture - Final Blood No Growth after 144 hours 02/13/20 16:05 Blood Culture - Preliminary Blood No Growth after 72 hours
--- NOTE | 2020-02-17 13:46 | P.PN ---
Subjective Progress Note Date: 02/17/20 Principal diagnosis: Sepsis Patient did not do well with the weaning trial yesterday, his heart rate and blood pressure shot up while he was on pressure support. This morning he will undergo another weaning trial. Otherwise no overnight event. Objective - Vital Signs Vital signs: Vital Signs Temp 98.7 F 02/17/20 08:00 Pulse 73 02/17/20 12:00 Resp 17 02/17/20 12:00 BP 146/88 02/17/20 12:00 Pulse Ox 98 02/17/20 12:00 Intake & Output 02/16/20 02/17/20 02/17/20 18:59 06:59 18:59 Intake Total 2998.386 2058.466 1052.976 Output Total 1145 1445 1900 Balance 95.419 -151.534 -847.024 Weight 102.9 kg 102.5 kg 102.5 kg Intake: IV 326 312 141 Ampicillin-Sulbactam 3 gm 100 In Sodium Chloride 0.9% 100 ml @ 200 mls/hr IVPB Q6HR [facility] Rx#:[id number] Normal Saline Pressure 66 72 21 Bag Sodium Chloride 0.9% 1, 160 240 120 000 ml @ 20 mls/hr IV . Q24H [facility] Rx#:[id number] Intake, IV Titration 560.419 183.466 418.976 Amount Clevidipine Butyrate 25 39.500 mg In Empty Bag 1 bag @ 1 MG/HR 2 mls/hr IV .Q24H [facility] Rx#:[id number] Norepinephrine 4 mg In 0 Sodium Chloride 0.9% 250 ml @ 0.05 MCG/KG/MIN 18. 993 mls/hr IV .[id number] [facility] Rx#:[id number] Propofol 1,000 mg In 190.919 183.466 177.873 Empty Bag 1 bag @ Titrate IV .Q0M [facility] Rx#: [id number] Sodium Chloride 0.9% 1, 80 000 ml @ 20 mls/hr IV . Q24H [facility] Rx#:[id number] fentaNYL (PF) 2,500 mcg 250.000 241.103 In Sodium Chloride 0.9% 200 ml @ 1.5 MCG/KG/HR 15 .69 mls/hr IV .[id number] [facility] Rx#:[id number] Tube Feeding 354 649 343 Other 149 150 Output: Urine 1145 1445 1900 Other: Voiding Method Indwelling Catheter Indwelling Catheter Indwelling Catheter ABP, PAP, CO, CI - Last Documented Arterial Blood Pressure 169/69 - Exam General: [non toxic], [intubated], [appears at stated age] Derm: [warm], [dry], [fullness of the neck with crepitus] Head: [atraumatic], [normocephalic], [symmetric] Eyes: [EOMI], [no lid lag], [anicteric sclera] Mouth: [no lip lesion], [mucus membranes moist] Cardiovascular: [S1S2 reg], [no murmur], [positive DP pulse bilateral], Lungs: [Coarse breath sounds bilateral], [no rhonchi, no rales] , [no accessory muscle use] Abdominal: [soft], [ nontender to palpation], [decreased bowel sounds], [no appreciable organomegaly] Ext: [no gross muscle atrophy], [2+ pitting edema in all 4 extremities], [no contractures] Neuro: [Unable to determine] Psych: [Unable to determine] - Labs CBC & Chem 7: 02/17/20 04:40 02/17/20 04:40 Labs: Abnormal Lab Results - Last 24 Hours (Table) 02/16/20 02/16/20 02/17/20 Range/Units 15:15 18:24 00:16 RBC (4.30-5.90) m/uL Hgb (13.0-17.5) gm/dL Hct (39.0-53.0) % RDW (11.5-15.5) % Lymphocytes # (1.0-4.8) k/uL D-Dimer (<0.60) mg/L FEU ABG pO2 (83-108) mmHg ABG Total CO2 (19-24) mmol/L Sodium (137-145) mmol/L BUN (9-20) mg/dL Creatinine (0.66-1.25) mg/dL POC Glucose (mg/dL) 101 H 107 H (75-99) mg/dL Calcium (8.4-10.2) mg/dL ALT (4-49) U/L Creatine Kinase (55-170) U/L Total Protein (6.3-8.2) g/dL Albumin (3.5-5.0) g/dL Coronavirus (PCR) Detected A (Not Detectd) 02/17/20 02/17/20 02/17/20 Range/Units 04:40 04:40 04:40 RBC 3.52 L (4.30-5.90) m/uL Hgb 11.0 L (13.0-17.5) gm/dL Hct 33.5 L (39.0-53.0) % RDW 19.3 H (11.5-15.5) % Lymphocytes # 0.8 L (1.0-4.8) k/uL D-Dimer 3.03 H (<0.60) mg/L FEU ABG pO2 (83-108) mmHg ABG Total CO2 (19-24) mmol/L Sodium 135 L (137-145) mmol/L BUN 25 H (9-20) mg/dL Creatinine 0.59 L (0.66-1.25) mg/dL POC Glucose (mg/dL) (75-99) mg/dL Calcium 8.1 L (8.4-10.2) mg/dL ALT 56 H (4-49) U/L Creatine Kinase <20 L (55-170) U/L Total Protein 4.4 L (6.3-8.2) g/dL Albumin 2.3 L (3.5-5.0) g/dL Coronavirus (PCR) (Not Detectd) 02/17/20 02/17/20 Range/Units 05:00 11:56 RBC (4.30-5.90) m/uL Hgb (13.0-17.5) gm/dL Hct (39.0-53.0) % RDW (11.5-15.5) % Lymphocytes # (1.0-4.8) k/uL D-Dimer (<0.60) mg/L FEU ABG pO2 81 L (83-108) mmHg ABG Total CO2 26 H (19-24) mmol/L Sodium (137-145) mmol/L BUN (9-20) mg/dL Creatinine (0.66-1.25) mg/dL POC Glucose (mg/dL) 102 H (75-99) mg/dL Calcium (8.4-10.2) mg/dL ALT (4-49) U/L Creatine Kinase (55-170) U/L Total Protein (6.3-8.2) g/dL Albumin (3.5-5.0) g/dL Coronavirus (PCR) (Not Detectd) Microbiology - Last 24 Hours (Table) 02/12/20 05:32 Blood Culture - Preliminary Blood No Growth after 120 hours 02/10/20 16:15 Blood Culture - Final Blood No Growth after 144 hours 02/13/20 16:05 Blood Culture - Preliminary Blood No Growth after 72 hours Assessment and Plan Plan: Acute hypoxic respiratory failure, sepsis with enterococcus bacteremia, COVID 19 pneumonia, possible bacterial pneumonia Atrial fibrillation with RVR now in sinus rhythm, status post amiodarone treatment Diarrhea Immunocompromised secondary to methotrexate for history of rheumatoid arthritis Subcutaneous emphysema around the neck Chest x-ray remained stable, bilateral multifocal infiltrates. Subcutaneous emphysema noted as well. Catheter tip culture positive for coagulase-negative staph. Sputum culture positive for Fiordaliza albicans. Blood culture positive for group D enterococcus, repeat blood culture negative at 24 hours. Continue Unasyn. Continue prednisone. Continue with weaning trials, ventilator support as per pulmonology. Infectious disease following Plans for trach and PEG by Surgery tomorrow. Subcutaneous emphysema around his neck will be monitored. Prognosis is guarded. Inflammatory markers improving. He is pending clinical improvement.
[2020-02-17] MEDS: FLUCONAZOLE 100 MG TAB NG-TUBE SCH (16:48)
--- NOTE | 2020-02-17 16:55 | PN ---
PROGRESS NOTE DATE OF SERVICE: 02/17/2020 REASON FOR FOLLOWUP: Pneumonia and bacteremia. INTERVAL HISTORY: The patient is currently afebrile. The patient is hemodynamically stable, not on any pressor support. FiO2 is currently 40%. No significant purulent secretion through the ET. He did have a fecal management for his diarrhea, but no worsening reported. PHYSICAL EXAMINATION: Blood pressure 121/68 with a pulse of 67, temperature 98.7. He is 98% on 40% FiO2. General description is a middle-aged male lying in bed in no distress. RESPIRATORY SYSTEM: Unlabored breathing. Clear to auscultation anteriorly. HEART: S1, S2. Regular rate and rhythm. ABDOMEN: Soft. No distention. LABS: Hemoglobin 11, white count 5.2. BUN of 25, creatinine 0.59. DIAGNOSTIC IMPRESSION AND PLAN: Patient with a component of pneumonia with acute respiratory failure, possible component Enterococcus faecalis bacteremia, possibly catheter-related, which has been discontinued. Follow-up blood culture has been negative. Patient is covered with Unasyn. White count is normal and we will monitor his clinical course closely. MMODL / IJN: [id number] /
[2020-02-17 18:20] LABS: Glucose,Whole Blood 116 mg/dL (75-99)
[2020-02-17] MEDS: SODIUM CHLORIDE 0.9% 1,000 ML IV SCH (18:30)
[2020-02-17] MEDS: fentaNYL (PF) 2,500 MCG in SODIUM CHLORIDE 0.9% 200 ML IV SCH (19:36)
[2020-02-17 23:55] LABS: Glucose,Whole Blood 103 mg/dL (75-99)
[2020-02-18] MEDS: PROPOFOL 1,000 MG in EMPTY BAG 1 BAG IV SCH ×7 (04:21→23:30)
[2020-02-18] MEDS: AMPICILLIN-SULBACTAM 3 GM in SODIUM CHLORIDE 0.9% 100 ML IVPB SCH ×4 (04:32→23:29)
[2020-02-18 05:06] LABS: Anisocytosis Slight; Basophils % (A) 0 %; Eosinophils # (A) 0.3 k/uL (0-0.7); Eosinophils % (A) 7 %; HCT 34.3 % (39.0-53.0); HGB 11.2 gm/dL (13.0-17.5); Hypochromasia Slight; Lymphocytes # (A) 0.8 k/uL (1.0-4.8); Lymphocytes % (A) 17 %; MCH 31.4 pg (25.0-35.0); MCHC 32.8 g/dL (31.0-37.0); MCV 95.7 fL (80.0-100.0); Macrocytosis Slight; Mean Platelet Volume 8.2; Monocytes # (A) 0.2 k/uL (0-1.0); Monocytes % (A) 5 %; Neutrophils # (A) 3.3 k/uL (1.3-7.7); Neutrophils % (A) 70 %; Platelet Count 217 k/uL (150-450); RBC 3.58 m/uL (4.30-5.90); RDW 19.6 % (11.5-15.5); WBC 4.7 k/uL (3.8-10.6)
[2020-02-18 05:28] LABS: ALT 55 U/L (4-49); AST 24 U/L (17-59); African American GFR (CKD) >90 (>60 ml/min/1.73 sqM); Albumin 2.4 g/dL (3.5-5.0); Alkaline Phosphatase 71 U/L (38-126); Anion Gap 0 mmol/L; Blood Urea Nitrogen 22 mg/dL (9-20); C Reactive Protein <5.0 mg/L (<10.0); Calcium 8.3 mg/dL (8.4-10.2); Carbon Dioxide 29 mmol/L (22-30); Chloride 106 mmol/L (98-107); Creatine Kinase <20 U/L (55-170); Glucose 82 mg/dL (74-99); LDH 516 U/L (313-618); Non-African American GFR(CKD) >90 (>60 ml/min/1.73 sqM); Potassium 3.7 mmol/L (3.5-5.1); Sodium 135 mmol/L (137-145); Total Bilirubin 0.4 mg/dL (0.2-1.3); Total Protein 4.5 g/dL (6.3-8.2)
[2020-02-18] MEDS: INSULIN ASPART (NovoLOG) 100 UNIT/ML VIAL SQ SCH ×4 (06:33→18:50)
--- NOTE | 2020-02-18 07:17 | XR ---
EXAMINATION TYPE: XR chest 1V portable DATE OF EXAM: 02/18/2020 COMPARISON: 02/17/2020 INDICATION: ET tube placement TECHNIQUE: Single frontal view of the chest is obtained. FINDINGS: The heart size is normal. The pulmonary vasculature is normal. There is diffuse increased lung markings bilaterally produces greater in the lower lung lynne. Findi ngs appear stable. Subcutaneous emphysema overlies the chest. No pneumothorax is evident. Endotracheal tube tip is above the lore. Nasogastric tube transverses the thorax. Left central veno us catheter tip is in the distal superior vena cava region. IMPRESSION: 1. Diffuse increased lung markings, stable. 2. Subcutaneous emphysema over the chest. No pneumothorax is evident 3. Lines and catheters discussed above.
[2020-02-18] MEDS: ASCORBIC ACID 500 MG TAB OG-TUBE SCH ×2 (08:31→20:31)
[2020-02-18] MEDS: ENOXAPARIN 80 MG/0.8 ML SYRINGE SQ SCH ×2 (08:31→20:32)
[2020-02-18] MEDS: POTASSIUM CHLORIDE 10 MEQ in WATER FOR INJECTION 1 100ML.BAG IVPB SCH ×2 (08:35→16:19)
[2020-02-18] MEDS: CHLORHEXIDINE GLUCONATE 15 ML CUP MUCOUS MEM SCH ×2 (08:35→20:31)
[2020-02-18] MEDS: PANTOPRAZOLE 40 MG/10 ML VIAL IVP SCH (08:35)
[2020-02-18] MEDS ORDERED: SODIUM CHLORIDE 0.9% 500 ML 500 ML IV ONE (08:55)
[2020-02-18 09:30] LABS: ABG Base Excess 2.9 mmol/L; ABG HCO3 26 mmol/L (21-25); ABG Oxygen Saturation 94.5 % (94-97); ABG PCO2 35 mmHg (35-45); ABG PH 7.48 (7.35-7.45); ABG PO2 68 mmHg (83-108); ABG TCO2 28 mmol/L (19-24); Allen Test Performed? Yes
[2020-02-18] MEDS: ALBUTEROL HFA INHALER INHALATION SCH ×4 (09:44→20:08)
--- NOTE | 2020-02-18 10:29 | P.PN ---
Subjective Progress Note Date: 02/18/20 Principal diagnosis: Sepsis Patient has not been tolerating weaning trials. He is on the schedule for PEG and trach placement. Objective - Vital Signs Vital signs: Vital Signs Temp 98.0 F 02/18/20 08:00 Pulse 49 L 02/18/20 09:00 Resp 24 02/18/20 09:00 BP 107/61 02/18/20 09:00 Pulse Ox 99 02/18/20 09:00 Intake & Output 02/17/20 02/18/20 02/18/20 18:59 06:59 18:59 Intake Total 1596.466 970.123 116.281 Output Total 3220 1520 350 Balance -1623.534 -549.877 -233.719 Weight 102.5 kg 98.6 kg Intake: IV 279 309 72 Normal Saline Pressure 39 69 12 Bag Sodium Chloride 0.9% 1, 240 240 60 000 ml @ 20 mls/hr IV . Q24H [facility] Rx#:[id number] Intake, IV Titration 728.466 391.123 44.281 Amount Propofol 1,000 mg In 286.466 313.824 Empty Bag 1 bag @ Titrate IV .Q0M [facility] Rx#: [id number] Sodium Chloride 0.9% 1, 192 000 ml @ 20 mls/hr IV . Q24H [facility] Rx#:[id number] fentaNYL (PF) 2,500 mcg 250.000 77.299 44.281 In Sodium Chloride 0.9% 200 ml @ 1.5 MCG/KG/HR 15 .69 mls/hr IV .[id number] [facility] Rx#:[id number] Tube Feeding 439 240 0 Other 150 30 0 Output: Urine 3220 1420 350 Stool 100 Other: Voiding Method Indwelling Catheter Indwelling Catheter Indwelling Catheter ABP, PAP, CO, CI - Last Documented Arterial Blood Pressure 95/41 - Exam General: [non toxic], [intubated], [appears at stated age] Derm: [warm], [dry], [fullness of the neck with crepitus] Head: [atraumatic], [normocephalic], [symmetric] Eyes: [EOMI], [no lid lag], [anicteric sclera] Mouth: [no lip lesion], [mucus membranes moist] Cardiovascular: [S1S2 reg], [no murmur], [positive DP pulse bilateral], Lungs: [Coarse breath sounds bilateral], [no rhonchi, no rales] , [no accessory muscle use] Abdominal: [soft], [ nontender to palpation], [decreased bowel sounds], [no appreciable organomegaly] Ext: [no gross muscle atrophy], [2+ pitting edema in all 4 extremities], [no contractures] Neuro: [Unable to determine] Psych: [Unable to determine] - Labs CBC & Chem 7: 02/18/20 04:45 02/18/20 04:45 Labs: Abnormal Lab Results - Last 24 Hours (Table) 02/17/20 02/17/20 02/17/20 Range/Units 11:56 18:19 23:54 RBC (4.30-5.90) m/uL Hgb (13.0-17.5) gm/dL Hct (39.0-53.0) % RDW (11.5-15.5) % Lymphocytes # (1.0-4.8) k/uL ABG pH (7.35-7.45) ABG pO2 (83-108) mmHg ABG HCO3 (21-25) mmol/L ABG Total CO2 (19-24) mmol/L Sodium (137-145) mmol/L BUN (9-20) mg/dL Creatinine (0.66-1.25) mg/dL POC Glucose (mg/dL) 102 H 116 H 103 H (75-99) mg/dL Calcium (8.4-10.2) mg/dL ALT (4-49) U/L Creatine Kinase (55-170) U/L Total Protein (6.3-8.2) g/dL Albumin (3.5-5.0) g/dL 02/18/20 02/18/20 02/18/20 Range/Units 04:45 04:45 09:27 RBC 3.58 L (4.30-5.90) m/uL Hgb 11.2 L (13.0-17.5) gm/dL Hct 34.3 L (39.0-53.0) % RDW 19.6 H (11.5-15.5) % Lymphocytes # 0.8 L (1.0-4.8) k/uL ABG pH 7.48 H (7.35-7.45) ABG pO2 68 L (83-108) mmHg ABG HCO3 26 H (21-25) mmol/L ABG Total CO2 28 H (19-24) mmol/L Sodium 135 L (137-145) mmol/L BUN 22 H (9-20) mg/dL Creatinine 0.56 L (0.66-1.25) mg/dL POC Glucose (mg/dL) (75-99) mg/dL Calcium 8.3 L (8.4-10.2) mg/dL ALT 55 H (4-49) U/L Creatine Kinase <20 L (55-170) U/L Total Protein 4.5 L (6.3-8.2) g/dL Albumin 2.4 L (3.5-5.0) g/dL Microbiology - Last 24 Hours (Table) 02/12/20 05:32 Blood Culture - Final Blood 02/13/20 16:05 Blood Culture - Preliminary Blood No Growth after 96 hours Assessment and Plan Plan: Acute hypoxic respiratory failure, sepsis with enterococcus bacteremia, COVID 19 pneumonia, possible bacterial pneumonia Atrial fibrillation with RVR now in sinus rhythm, status post amiodarone treatment Diarrhea Immunocompromised secondary to methotrexate for history of rheumatoid arthritis Subcutaneous emphysema around the neck Chest x-ray remained stable, bilateral multifocal infiltrates. Subcutaneous emphysema noted as well. Catheter tip culture positive for coagulase-negative staph. Sputum culture positive for Fiordaliza albicans. Blood culture positive for group D enterococcus, repeat blood culture negative at 24 hours. Continue Unasyn. Continue prednisone. Continue with weaning trials, ventilator support as per pulmonology. Infectious disease following Plans for trach and PEG by Surgery tomorrow. Subcutaneous emphysema around his neck will be monitored. Prognosis is guarded. Inflammatory markers improving. He is pending clinical improvement.
[2020-02-18] MEDS ORDERED: fentaNYL (PF) 50 MCG/ML 2 ML AMP ONE (12:15)
[2020-02-18] MEDS ORDERED: PROPOFOL 10 MG/ML 20 ML VIAL IV ONE (12:15)
[2020-02-18] MEDS ORDERED: GLYCOPYRROLATE 0.2 MG/ML 2 ML VIAL ONE (12:15)
[2020-02-18] MEDS ORDERED: ROCURONIUM BROMIDE 10 MG/ML 5 ML VIAL IV ONE (12:15)
[2020-02-18] MEDS ORDERED: ePHEDrine SULFATE/0.9% NACL/PF 50 MG/5 ML SYRINGE IV ONE (12:15)
[2020-02-18] MEDS ORDERED: SODIUM CHLORIDE 0.9% 1,000 ML IV ONE (12:30)
[2020-02-18] MEDS ORDERED: LIDOCAINE 1% INJ 10MG/ML (20 ML MDV) SQ ONE (12:30)
--- NOTE | 2020-02-18 13:02 | P.PN ---
Subjective Progress Note Date: 02/18/20 Principal diagnosis: acute covid 19 pneumonitis was asked to evaluate this patient who is a 64-year-old male who has been diagnosed having acute covid 19 pneumonia and the patient has been progressively becoming hypoxic as the patient was on few liters about 2 by nasal cannula and subsequently dioxin fluids and she is up to 6 L and then 8 L and currently is on 10 L of oxygen by nasal cannula. The decompensation of worsening the oxygenation has occurred over the past 24 hours. At this point in time the patient is having difficulty breathing which is mild. He has a dry cough. He is sleeping in a prone body position. Seems to be making him more comfortable. While on 10 L of oxygen, is pulse oxing around 96%. His heart rate is at 59. BP is 111/67. He was having on and off low-grade fever throughout the hospitalization and his last temperature spike was 100.3 from 01/24/2020 at 8:00 in the evening. He was given doxycycline Rocephin and Plaquenil. He was placed on zinc sulfate and I also added IV Solu-Medrol 40 mg every 12 hours. The patient had a chest x-ray showing worsening bilateral pulmonary infiltrates and pneumonia compared to the original chest x-ray that was done on 01/23/2020. The blood gas today that was done on a 65% FiO2 showed a pH of 7.46 with a pCO2 of 26 and pO2 of 63 consistent with hypoxemia and respiratory alkalosis. White cell count was suppressed at 3.1. The patient has lymphopenia with a lymphocyte count of 0.2. The patient had a pro-calcitonin level of 0.17. LDH level was 1067 at a time of admission and hasn't been rechecked.. This patient got chest her dose from [facility]. He reported diarrhea around 3 weeks ago and his been having progressive shortness of breath over the past 2-3 weeks. He denies having any body aches. He is extensively fatigued. He was in [place] for spring. He has history of rheumatoid arthritis and the patient has been taking methotrexate for many years regarding his RA On 01/26/2020 patient seen in follow-up on medical surgical floor. Is currently on 11 L per high flow oxygen, his pulse ox is 93%, he is been afebrile, hemodynamically patient is stable, non-tachycardic. Yesterday's chest x-ray has been reviewed showing worsening bilateral pneumonias, patient is on combination of doxycycline, Rocephin, hydroxy chloroquine, and IV Solu-Medrol 40 mg every 12 hours, patient is on zinc 220 mg daily, and Ventolin inhaler. Still dyspnea, but no acute distress. Follow-up labs have been reviewed today, white blood cell count is up to 5.9, hemoglobin is 12.8, sodium is 138, potassium is 3.3, yesterday's LDH was trending up, and CRP was also trending up. Pro-calcitonin was in the intermediate range of 0.17. Lung sounds reveal crackles at bilateral bases. He states although she is still short of breath he overall feels somewhat better. On 01/27/2020 patient seen in follow-up on medical surgical floor. Patient is awake and alert, his oxygenation demand did increase overnight, he is currently on 13 L per high flow nasal cannula, he is satting about 93%, however he appears to be in no acute distress, mildly dyspneic, still has a dry cough, lung sounds reveal some crackles in bilateral lungs, no rhonchi or wheezing, patient is positive for Covid 19 infection, and she remains on a regime of hydroxychloroquine, IV Solu-Medrol, Rocephin and doxycycline. Afebrile. Today's chest x-ray has been reviewed showing persistent diffuse interstitial infiltrates, improved lung volumes with some improvement in aeration of the lung bases. Continue current medical treatment, today's labs have been reviewed, d- dimer is up to 1.44, no leukocytosis, hemoglobin is 12.1, sodium is 137, potassium 3.3, chloride is 109, CO2 is 20, B1 is 14 creatinine 0.70, LDH slightly trended up to 1728, CK is 29, CRP has significantly improved and is down to 49 On 01/28/2020 patient seen in follow-up on general medical floor. He is Covid 19 positive, FiO2 is down to 11 L on today's exam, from 13 L on yesterday's exam, his pulse ox is 92%. We will to be in any acute distress, breathing is comfortable, lung sounds reveal some minimal crackles at bilateral bases, patient remains on Rocephin, azithromycin has been discontinued, and he has completed a course of Plaquenil. Afebrile in the last 24 hours. Patient was reevaluated today on 01/29/20, he was seen on the regular medical floor, and he is on high flow nasal cannula at 13 L/m, O2 saturation is marginal anywhere between 90-94% at best patient has shortness of breath, but does not seem to be in distress. He is breathing very comfortably. His chest x-ray showed slight worsening. Crackles at the bases bilaterally noted. After evaluating the patient, and considering that his O2 saturation has been fluctuating between 84 and 95%, I recommended observing the patient in the ICU, and I transferred the patient to the ICU. ABG on high flow nasal cannula showed a pO2 of 64 he CO2 of 31 pH of 7.52. His d-dimer is 2.30. CBC is normal basic metabolic profile is normal however his LDH is 6. C-reactive protein is 47. Reevaluated today on 01/30/20, patient was transferred yesterday to the intensive care unit, and around midnight, patient desaturated significantly, and we could not maintain his O2 saturation in the 90s. Patient was also noted by the nurse taking care of him to become more tachypneic, and he was using more and more of his accessory muscles. I was notified about the patient, and I recommended immediate intubation. Patient is now on mechanical ventilation, his ventilatory settings are assist control rate of 20 and this was increased to 26. His tidal volume was 450 assist-control rate FiO2 of 60% which was cut down to 50%, and PEEP was at 5 however I increased the PEEP to 10 today. I increased the flow rate to 70 L/m. Patient seems to be clinically dry, hence I recommended a liter of IV fluid in the form of 0.9 normal saline. I have also recommended that he remains on propofol at 50 fentanyl at 0.25 mcg/kg/h, and he is on Nimbex. Chest x-ray clearly shows evidence of diffuse interstitial infiltrates consistent with covid 19 pneumonitis. ABG this morning showed a pO2 of 116 pCO2 of 88 pH of 7.13, hence adjustment was made on his ventilatory settings. And rate was increased. PEEP was increased. And FiO2 was brought down to 50%. LDH today is 1827. And C-reactive protein is 47.4. Patient was reevaluated today on 01/31/20, remains intubated and mechanically ventilated. Patient is on assist control rate of 26 tidal volume is 450 FiO2 is 40% and PEEP is 10 however I cut it down to 8 today. And increased his rate to 30. Kept him on the same tidal volume of 4.50. The reason I made the change was because of his ABG showing pO2 of 116 pCO2 of 67 and pH of 7.27. His inflammatory markers are trending down. C-reactive protein is 44. Peak airway pressure is 26, plateau pressure is 21. Patient remains on propofol at 3 0 mcg/kg/m, fentanyl at 0.5 mcg/kg/h and on Nimbex at 3 mcg/kg/m. Off norepinephrine, remains on IV fluid 0.9 normal saline at 50 mL per hour.remains on enteral feeding.labs and chest x-ray were reviewed.chest x-ray continues to show patchy bilateral interstitial infiltrates Reevaluated today on 02/01/20, patient remains in the ICU, intubated and mechanically ventilated. His ventilator settings are assist control rate of 30 tidal volume is 450 FiO2 is 40% and I increased to 45%. PEEP is at 8. Patient remains on fentanyl 0.5 Nimbex at 3 g and propofol at 60 mcg/kg/m. Chest x-ray continues to show patchy bilateral infiltrates, not much of a significant change since yesterday. ABG showed a pO2 of 63 pCO2 of 63 pH of 7.37, hence FiO2 was increased to 40% and The same at 8. CBC is relatively normal. Lymphocytes remain low however. Platelets are normal. D-dimer is 1.40. Basic metabolic profile is normal. LDH is improving, down to 693 from as high as over 2000. C- reactive protein is down from 201 now it is 42.7, steadily improving. Hence considering the improvement, and considering the patient has less O2 requirement, I would likely hold Nimbex today, assess the patient off Nimbex and decide whether we could further wean or hold sedation and give the patient any weaning trial possibly today or in the next 24 hours. The patient is seen today 02/16/2020 in follow-up in the intensive care unit. He remains intubated on the mechanical ventilator. Currently in VC plus mode with a tidal volume 450 expiratory time 1.0. Rate of 24. FiO2 40% and a PEEP of 5. Morning blood gases reveal a P O2 of 64, pCO2 39, pH 7.46. He remains sedated on propofol currently at 40 mcg/kg/m. Fentanyl at 1.5 mcg/kg per hour. Cleviprex at 1 mg per hour. Being nourished with vital HP at 43 ML's which is go al. Yesterday he tolerated pressure support of 8 and a CPAP of 5 for approximately 3 hours. He was given additional sedation holiday today with a pressure support of 12 and CPAP of 5. Unfortunately the patient developed significant tachycardia, hypertension and tachypnea. This all occurred with a daily interruption of sedation and prior to even obtaining any breathing trials today. He has been quite sedate and significantly weak and unable to follow simple commands. Suspect critical illness polyneuropathy. He had previously failed extubation and has been reintubated since 02/10/2020. Blood cultures are positive for Enterococcus faecalis. Catheter tip and urine cultures were negative. White count 5.1. Hemoglobin 11.1. Platelets 204. Sodium 136. Potassium 3.8. Bicarb 28. Creatinine 0.62. Ferritin 144. LDH 645. C- reactive protein less than 5. He remains on Unasyn. Chest x-ray continues to show extensive subcutaneous emphysema and bibasilar airspace disease, stable co mpared to yesterday. Reevaluated today on 02/17/20, patient remains in the intensive care unit, intu bated and mechanically ventilated. Yesterday patient failed any attempts for weaning trial. However we will address again today by placing the patient on pressure support of 12 and CPAP. In the meantime the patient remains on mechanical ventilation, his tidal volume is 480 assist control rate of 24 FiO2 is 40% and PEEP is 5. ABG showed a pO2 of 81 pCO2 of 37 pH of 7.43. Remains on fentanyl at 1.5 mcg/kg/m and on the prevent at 40 mcg/kg/m. Chest x-ray continues to show bilateral interstitial infiltrates secondary to Covid 19 pneumonitis. Today I have given the patient a dose of Lasix. And we have recommended increasing Lovenox 80 mg subcu twice a day. I have also raised the concern about possibly giving the patient convalescent plasma if available. In the meantime I would also hold all narcotics and sedatives, and give the patient weaning trial if possible today. Although I am not very confident that the patient will do well, but at least we'll give the patient a trial of weaning if possible. CBC is relatively normal, basic metabolic profile is relatively normal, inflammatory markers were noted, LDH is down to 552 C-reactive protein is less than 5 and ferritin is 147. All are good indicators that the patient is improving. Patient was seen by surgery yesterday, and repeat coronavirus PCR came back positive again they were asked to see him for possible tracheostomy. However now that the PCR remains positive, we'll discuss with surgery plans for tracheostomy. And PEG tube placement. Blood cultures from the were positive for Enterococcus faecalis. Patient is still on Unasyn. Reevaluated today on 02/18/20. Patient remains in the ICU, failed multiple att empts over the last few days of weaning utilizing pressure support and CPAP. Went on the pressure support as high as 12, patient wouldn't last long before he gets tired out, tachypneic, tachycardic, and I have recommended tracheostomy and PEG tube placement. This will likely be done today by Dr. Tracy. Presently the patient is on mechanical ventilation with assist control rate of 480, patien t is on volume control plus, he is also on FiO2 is 40% and PEEP of 5 rate is 24. ABG showed a pO2 68 E. CO2 of 35 pH of 7.48 Remains on fentanyl at 0.75 mcg/kg/h and on propofol at 50 mcg/kg/m. Patient did receive diuretics, however blood pressure went admitted to the low side, and I recommended fluid boluses again 500 mL at a time. Chest x-ray is showing minimal improvement in his bilateral interstitial infiltrates. Inflammatory markers are improving. C- reactive protein is down to less than 5 LDH is down to 516 and ferritin is down to 153. 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 Hence tracheostomy, PEG tube placement, eventual PICC line placement, and placement should be appropriate. Objective - Vital Signs Vital signs: Vital Signs Temp 98.0 F 02/18/20 08:00 Pulse 49 L 02/18/20 09:00 Resp 24 02/18/20 09:00 BP 107/61 02/18/20 09:00 Pulse Ox 99 02/18/20 09:00 Intake & Output 02/17/20 02/18/20 02/18/20 18:59 06:59 18:59 Intake Total 1596.466 970.123 116.281 Output Total 3220 1520 350 Balance -1623.534 -549.877 -233.719 Weight 102.5 kg 98.6 kg Intake: IV 279 309 72 Normal Saline Pressure 39 69 12 Bag Sodium Chloride 0.9% 1, 240 240 60 000 ml @ 20 mls/hr IV . Q24H KAYLEE Rx#:[id number] Intake, IV Titration 728.466 391.123 44.281 Amount Propofol 1,000 mg In 286.466 313.824 Empty Bag 1 bag @ Titrate IV .Q0M KAYLEE Rx#: [id number] Sodium Chloride 0.9% 1, 192 000 ml @ 20 mls/hr IV . Q24H KAYLEE Rx#:[id number] fentaNYL (PF) 2,500 mcg 250.000 77.299 44.281 In Sodium Chloride 0.9% 200 ml @ 1.5 MCG/KG/HR 15 .69 mls/hr IV .[id number] KAYLEE Rx#:[id number] Tube Feeding 439 240 0 Other 150 30 0 Output: Urine 3220 1420 350 Stool 100 Other: Voiding Method Indwelling Catheter Indwelling Catheter Indwelling Catheter ABP, PAP, CO, CI - Last Documented Arterial Blood Pressure 95/41 - Exam GENERAL EXAM: Alert, very pleasant, 64-year-old white male, on mechanical ventilation, sedated , on fentanyl and on propofol. As noted previously. HEENT: PERRLA, EOMI, no active, dry mucous membranes, no neck masses, no JVD, no stridor. CHEST: No chest wall deformity. Symmetrical expansion. LUNGS: Minimal crackles at the bases no rhonchi and no wheezes. CVS: Regular rate and rhythm, normal S1 and S2, no gallops, no murmurs, no rubs ABDOMEN: Soft, nontender. No hepatosplenomegaly, normal bowel sounds, no guarding or rigidity. EXTREMITIES: No clubbing, no edema, no cyanosis, 2+ pulses and upper and lower extremities. MUSCULOSKELETAL: Muscle tone normal. SKIN: No rashes CENTRAL NERVOUS SYSTEM: Sedated, could not be assessed. PSYCHIATRIC: Could not be assessed - Labs CBC & Chem 7: 02/18/20 04:45 04/29/20 04:45 Labs: Abnormal Lab Results - Last 24 Hours (Table) 02/17/20 02/17/20 02/18/20 Range/Units 18:19 23:54 04:45 RBC 3.58 L (4.30-5.90) m/uL Hgb 11.2 L (13.0-17.5) gm/dL Hct 34.3 L (39.0-53.0) % RDW 19.6 H (11.5-15.5) % Lymphocytes # 0.8 L (1.0-4.8) k/uL ABG pH (7.35-7.45) ABG pO2 (83-108) mmHg ABG HCO3 (21-25) mmol/L ABG Total CO2 (19-24) mmol/L Sodium (137-145) mmol/L BUN (9-20) mg/dL Creatinine (0.66-1.25) mg/dL POC Glucose (mg/dL) 116 H 103 H (75-99) mg/dL Calcium (8.4-10.2) mg/dL ALT (4-49) U/L Creatine Kinase (55-170) U/L Total Protein (6.3-8.2) g/dL Albumin (3.5-5.0) g/dL 02/18/20 02/18/20 Range/Units 04:45 09:27 RBC (4.30-5.90) m/uL Hgb (13.0-17.5) gm/dL Hct (39.0-53.0) % RDW (11.5-15.5) % Lymphocytes # (1.0-4.8) k/uL ABG pH 7.48 H (7.35-7.45) ABG pO2 68 L (83-108) mmHg ABG HCO3 26 H (21-25) mmol/L ABG Total CO2 28 H (19-24) mmol/L Sodium 135 L (137-145) mmol/L BUN 22 H (9-20) mg/dL Creatinine 0.56 L (0.66-1.25) mg/dL POC Glucose (mg/dL) (75-99) mg/dL Calcium 8.3 L (8.4-10.2) mg/dL ALT 55 H (4-49) U/L Creatine Kinase <20 L (55-170) U/L Total Protein 4.5 L (6.3-8.2) g/dL Albumin 2.4 L (3.5-5.0) g/dL Microbiology - Last 24 Hours (Table) 02/12/20 05:32 Blood Culture - Final Blood 02/13/20 16:05 Blood Culture - Preliminary Blood No Growth after 96 hours Assessment and Plan Assessment: acute covid 19 pneumonitis. acute hypoxic respiratory failure secondary to above. Patient was extubated earlier last week, however he failed extubation and he had to be reintubated on 02/09. And remains intubated since then. Acute sepsis secondary to Enterococcus faecalis bacteremia. Suspect critical illness polyneuropathy/myopathy. Which is likely the main cause of failure to wean. Acute hypercapnic respiratory failure secondary to severe pneumonitis secondary to covid 19. diarrhea due to GI manifestation of Covid 19 infection, resolved. lymphopenia secondary to Covid 19 infection Recommendation: Continue ventilatory support. Continue nutritional support. /enteral feeding. Continue Unasyn for Enterococcus faecalis bacteremia and sepsis. Failure to wean on pressure support of 12 [address] CPAP. Discuss[address] with Dr. Tracy, patient will have tracheostomy and PEG tube placement today per Continue GI and DVT prophylaxis. Continue Lovenox. Continue bronchodilators and low-dose steroids. Patient is on prednisone 30 mg by mouth daily We'll continue to follow. Critical care time is 32 minutes. Time with Patient: Greater than 30
--- NOTE | 2020-02-18 14:13 | P.OP ---
Date of Procedure: 02/18/20 Preoperative Diagnosis: Respiratory failure Malnutrition Postoperative Diagnosis: Respiratory failure Malnutrition Procedure(s) Performed: Tracheostomy PEG tube placement Anesthesia: MALLORY Surgeon: Joel Tracy Estimated Blood Loss (ml): 5 Pathology: none sent Condition: stable Disposition: PACU Description of Procedure: Patient's placed in the operative table in supine position. He received IV sedation. The patient received general anesthesia. His neck was prepped and draped usual sterile fashion. Standard Racquel incision was made approximately 2 cm above the sternal notch using electrocautery the subcutaneous tissue divided. The platysma was divided. Strap muscles were divided midline. Apparently when his were then placed a wound. And then the trachea was exposed with dissection. At this point the endotracheal tube was advanced into the right mainstem br onchus. Patient was ventilated. The patient.. And then the tracheotomy was performed between the second and third cartilage rings. #8 long Portex tracheostomy tube was then placed in the trachea. Patient continued to the ventilator and tidal CO2 was confirmed. The skin edges were then sewn with 2-0 nylon. The trach collar was applied. Patient received full tidal volumes. This point the gastroscope placed oropharynx and passed into the esophagus and stomach. Scope was then placed through the pylorus. The scope was then brought back and stomach and the stomach was insufflated with air. A suitable light reflux was seen the anterior abdominal wall. The skin was then incised and the needles placed and stomach under direct visualization. The wire was then placed through the needle and the wire was snared and brought through the oropharynx. The PEG tube placed overtop the wire and brought down to the stomach and secured at the 3 cm alina with the one-piece bolster. Patient top she will was sent back to the ICU in stable condition.
[2020-02-18] MEDS: ZINC SULFATE 220 MG CAP PO SCH (15:34)
[2020-02-18] MEDS: CLEVIDIPINE BUTYRATE 25 MG in EMPTY BAG 1 BAG IV SCH (15:34)
[2020-02-18] MEDS: predniSONE 10 MG TAB PO SCH (15:34)
[2020-02-18] MEDS: NOREPINEPHRINE 4 MG in SODIUM CHLORIDE 0.9% 250 ML IV SCH ×3 (15:36)
[2020-02-18] MEDS: FLUCONAZOLE 100 MG TAB NG-TUBE SCH (15:37)
[2020-02-18] MEDS: SODIUM CHLORIDE 0.9% 1,000 ML IV SCH (16:21)
[2020-02-18 16:26] LABS: Glucose,Whole Blood 76 mg/dL (75-99)
[2020-02-18 18:11] LABS: Glucose,Whole Blood 70 mg/dL (75-99)
[2020-02-18] MEDS: fentaNYL (PF) 2,500 MCG in SODIUM CHLORIDE 0.9% 200 ML IV SCH ×2 (18:51→20:21)
[2020-02-18] MEDS: DEXTROSE 5%-0.9% NACL 1,000 ML IV SCH (19:05)
--- NOTE | 2020-02-18 21:03 | PN ---
PROGRESS NOTE DATE OF SERVICE: 02/18/2020 REASON FOR FOLLOWUP: Pneumonia. INTERVAL HISTORY: The patient is currently afebrile. The patient is status post trach and PEG today. He is hemodynamically stable, not on any pressor support. FiO2 is currently 40%. No significant purulent secretion through the ET and no diarrhea reported. PHYSICAL EXAMINATION: Blood pressure 151/62 with a pulse of 66, temperature 98. He is 99% on 40% FiO2. General description is a middle-aged male intubated on the vent. RESPIRATORY SYSTEM: Unlabored breathing. Coarse breath sounds bilaterally. No wheeze. HEART: S1, S2. Regular rate and rhythm. ABDOMEN: Soft. No tenderness. LABS: Hemoglobin 11.2, white count 4.7. BUN of 22, creatinine 0.56. Repeat blood and catheter tip cultures have been negative. DIAGNOSTIC IMPRESSION AND PLAN: Patient with acute respiratory failure which is multifactorial with a component of pneumonia and Enterococcus faecalis bacteremia. Patient is currently covered with Unasyn and Diflucan; to continue. White count is normal and repeat culture has been negative. Continue supportive care. MMODL / IJN: [id number] /
[2020-02-19] MEDS: INSULIN ASPART (NovoLOG) 100 UNIT/ML VIAL SQ SCH ×4 (00:29→17:27)
[2020-02-19 00:48] LABS: Glucose,Whole Blood 91 mg/dL (75-99)
[2020-02-19] MEDS: NOREPINEPHRINE 4 MG in SODIUM CHLORIDE 0.9% 250 ML IV SCH ×2 (02:27→13:11)
[2020-02-19] MEDS: PROPOFOL 1,000 MG in EMPTY BAG 1 BAG IV SCH ×5 (02:45→21:35)
[2020-02-19] MEDS: AMPICILLIN-SULBACTAM 3 GM in SODIUM CHLORIDE 0.9% 100 ML IVPB SCH ×4 (03:09→21:35)
[2020-02-19] MEDS: fentaNYL (PF) 2,500 MCG in SODIUM CHLORIDE 0.9% 200 ML IV SCH ×2 (03:10→18:39)
[2020-02-19 05:46] LABS: Glucose,Whole Blood 87 mg/dL (75-99)
--- NOTE | 2020-02-19 06:34 | XR ---
EXAMINATION TYPE: XR chest 1V portable DATE OF EXAM: 02/19/2020 CLINICAL HISTORY: Difficulty breathing progress study. TECHNIQUE: Single AP portable upright view of the chest is obtained. COMPARISON: Chest x-ray from one day earlier and multiple older studies. FINDINGS: Interval replacement of endotracheal tube with more flexible tube, tip positioning stable at level of aortic knob. Overlying EKG leads redemonstrated. Stable left internal jugular central kia ous catheter. Cardiac silhouette size stable and within normal limits with atherosclerotic aortic knob. Background chronic parenchymal change with patchy bibasilar opacities. Overlying subcutaneous emphysema again se en. No pneumothorax noted bilaterally. Overlying oxygen cannula right lateral chest noted. IMPRESSION: Overall stable findings, chronic parenchymal changes with patchy bibasilar acute atelec tasis and/or infiltrate. Overlying subcutaneous emphysema redemonstrated.
[2020-02-19 06:38] LABS: Anisocytosis Slight; Basophils % (A) 0 %; Eosinophils # (A) 0.2 k/uL (0-0.7); Eosinophils % (A) 4 %; HCT 35.9 % (39.0-53.0); HGB 11.2 gm/dL (13.0-17.5); Hypochromasia Slight; Lymphocytes # (A) 0.6 k/uL (1.0-4.8); Lymphocytes % (A) 9 %; MCH 30.1 pg (25.0-35.0); MCHC 31.2 g/dL (31.0-37.0); MCV 96.4 fL (80.0-100.0); Macrocytosis Slight; Mean Platelet Volume 7.8; Monocytes # (A) 0.2 k/uL (0-1.0); Monocytes % (A) 3 %; Neutrophils # (A) 5.4 k/uL (1.3-7.7); Neutrophils % (A) 83 %; Platelet Count 214 k/uL (150-450); RBC 3.73 m/uL (4.30-5.90); RDW 19.2 % (11.5-15.5); WBC 6.6 k/uL (3.8-10.6)
[2020-02-19 07:01] LABS: ALT 56 U/L (4-49); AST 28 U/L (17-59); African American GFR (CKD) >90 (>60 ml/min/1.73 sqM); Albumin 2.4 g/dL (3.5-5.0); Alkaline Phosphatase 75 U/L (38-126); Anion Gap 1 mmol/L; Blood Urea Nitrogen 13 mg/dL (9-20); C Reactive Protein 14.1 mg/L (<10.0); Calcium 8.1 mg/dL (8.4-10.2); Carbon Dioxide 24 mmol/L (22-30); Chloride 106 mmol/L (98-107); Creatine Kinase <20 U/L (55-170); Glucose 88 mg/dL (74-99); LDH 643 U/L (313-618); Non-African American GFR(CKD) >90 (>60 ml/min/1.73 sqM); Potassium 3.9 mmol/L (3.5-5.1); Sodium 131 mmol/L (137-145); Total Bilirubin 0.5 mg/dL (0.2-1.3); Total Protein 4.7 g/dL (6.3-8.2)
[2020-02-19 07:18] LABS: ABG Base Excess 1.4 mmol/L; ABG HCO3 25 mmol/L (21-25); ABG PCO2 36 mmHg (35-45); ABG PH 7.46 (7.35-7.45); ABG PO2 79 mmHg (83-108); ABG TCO2 26 mmol/L (19-24); Allen Test Performed? Yes
[2020-02-19] MEDS: ALBUTEROL HFA INHALER INHALATION SCH (08:22)
[2020-02-19] MEDS: ASCORBIC ACID 500 MG TAB OG-TUBE SCH ×2 (09:32→21:35)
[2020-02-19] MEDS: CHLORHEXIDINE GLUCONATE 15 ML CUP MUCOUS MEM SCH ×2 (09:33→21:35)
[2020-02-19] MEDS: ENOXAPARIN 80 MG/0.8 ML SYRINGE SQ SCH ×2 (09:33→21:34)
[2020-02-19] MEDS: predniSONE 10 MG TAB PO SCH (09:33)
[2020-02-19] MEDS: PANTOPRAZOLE 40 MG/10 ML VIAL IVP SCH (09:33)
[2020-02-19] MEDS: ZINC SULFATE 220 MG CAP PO SCH (09:36)
[2020-02-19] MEDS: CLEVIDIPINE BUTYRATE 25 MG in EMPTY BAG 1 BAG IV SCH (09:37)
--- NOTE | 2020-02-19 10:04 | P.PN ---
Subjective Progress Note Date: 02/19/20 Principal diagnosis: Sepsis Blood sugars have been on the low side yesterday, patient was started on D5 infusion. He had a PEG tube yesterday, no weaning trials were done. Objective - Vital Signs Vital signs: Vital Signs Temp 98.4 F 02/19/20 08:00 Pulse 71 02/19/20 09:00 Resp 24 02/19/20 09:00 BP 127/78 02/19/20 09:00 Pulse Ox 96 02/19/20 09:00 Intake & Output 02/18/20 02/19/20 02/19/20 18:59 06:59 18:59 Intake Total 187.912 1104.027 213.271 Output Total 928 1150 100 Balance 54.441 360.027 113.271 Weight 98.6 kg 97.4 kg 97.4 kg Intake: IV 679 256 23 Normal Saline Pressure 39 36 3 Bag Sodium Chloride 0.9% 1, 240 220 20 000 ml @ 20 mls/hr IV . Q24H [facility] Rx#:[id number] Intake, IV Titration 596.082 3722.027 190.271 Amount Ampicillin-Sulbactam 3 gm 200 In Sodium Chloride 0.9% 100 ml @ 200 mls/hr IVPB Q6H [facility] Rx#:[id number] Dextrose 5%-0.9% NaCl 1, 550 50 000 ml @ 50 mls/hr IV . Q20H [facility] Rx#:[id number] Propofol 1,000 mg In 259.160 375.607 92.547 Empty Bag 1 bag @ Titrate IV .Q0M [facility] Rx#: [id number] fentaNYL (PF) 2,500 mcg 44.281 128.42 47.724 In Sodium Chloride 0.9% 200 ml @ 1.5 MCG/KG/HR 15 .69 mls/hr IV .[id number] [facility] Rx#:[id number] Tube Feeding 0 Other 0 Output: Urine 925 1150 100 Estimated Blood Loss 3 Other: Voiding Method Indwelling Catheter Indwelling Catheter ABP, PAP, CO, CI - Last Documented Arterial Blood Pressure 164/62 - Exam General: [non toxic], [intubated], [appears at stated age] Derm: [warm], [dry], [fullness of the neck with crepitus] Head: [atraumatic], [normocephalic], [symmetric] Eyes: [EOMI], [no lid lag], [anicteric sclera] Mouth: [no lip lesion], [mucus membranes moist] Cardiovascular: [S1S2 reg], [no murmur], [positive DP pulse bilateral], Lungs: [Coarse breath sounds bilateral], [no rhonchi, no rales] , [no accessory muscle use] Abdominal: [soft], [ nontender to palpation], [decreased bowel sounds], [no appreciable organomegaly] Ext: [no gross muscle atrophy], [2+ pitting edema in all 4 extremities], [no contractures] Neuro: [Unable to determine] Psych: [Unable to determine] - Labs CBC & Chem 7: 02/19/20 06:00 02/19/20 06:00 Labs: Abnormal Lab Results - Last 24 Hours (Table) 02/18/20 02/19/20 02/19/20 Range/Units 18:10 06:00 06:00 RBC 3.73 L (4.30-5.90) m/uL Hgb 11.2 L (13.0-17.5) gm/dL Hct 35.9 L (39.0-53.0) % RDW 19.2 H (11.5-15.5) % Lymphocytes # 0.6 L (1.0-4.8) k/uL D-Dimer 2.02 H (<0.60) mg/L FEU ABG pH (7.35-7.45) ABG pO2 (83-108) mmHg ABG Total CO2 (19-24) mmol/L Sodium (137-145) mmol/L Creatinine (0.66-1.25) mg/dL POC Glucose (mg/dL) 70 L (75-99) mg/dL Calcium (8.4-10.2) mg/dL ALT (4-49) U/L Lactate Dehydrogenase (313-618) U/L Creatine Kinase (55-170) U/L C-Reactive Protein (<10.0) mg/L Total Protein (6.3-8.2) g/dL Albumin (3.5-5.0) g/dL 02/19/20 02/19/20 Range/Units 06:00 07:13 RBC (4.30-5.90) m/uL Hgb (13.0-17.5) gm/dL Hct (39.0-53.0) % RDW (11.5-15.5) % Lymphocytes # (1.0-4.8) k/uL D-Dimer (<0.60) mg/L FEU ABG pH 7.46 H (7.35-7.45) ABG pO2 79 L (83-108) mmHg ABG Total CO2 26 H (19-24) mmol/L Sodium 131 L (137-145) mmol/L Creatinine 0.53 L (0.66-1.25) mg/dL POC Glucose (mg/dL) (75-99) mg/dL Calcium 8.1 L (8.4-10.2) mg/dL ALT 56 H (4-49) U/L Lactate Dehydrogenase 643 H (313-618) U/L Creatine Kinase <20 L (55-170) U/L C-Reactive Protein 14.1 H (<10.0) mg/L Total Protein 4.7 L (6.3-8.2) g/dL Albumin 2.4 L (3.5-5.0) g/dL Microbiology - Last 24 Hours (Table) 02/13/20 16:05 Blood Culture - Preliminary Blood No Growth after 120 hours 02/12/20 05:32 Blood Culture - Final Blood Assessment and Plan Plan: Acute hypoxic respiratory failure, sepsis with enterococcus bacteremia, COVID 19 pneumonia, possible bacterial pneumonia Atrial fibrillation with RVR now in sinus rhythm, status post amiodarone tr eatment Diarrhea Hypoglycemia Immunocompromised secondary to methotrexate for history of rheumatoid arthritis Subcutaneous emphysema around the neck Continue on D5 normal saline until starting tube feeding. This is supposed to be today. Chest x-ray remained stable, bilateral multifocal infiltrates. Subcutaneous emphysema noted as well. Sputum culture positive for Fiordaliza albicans. Blood culture positive for group D enterococcus, repeat blood culture negative at 24 hours. Continue Unasyn and diflucan. Continue prednisone. Continue with weaning trials, ventilator support as per pulmonology. Infectious disease following S/p trach and peg on 02/17. Subcutaneous emphysema around his neck will be monitored. Prognosis is poor.
[2020-02-19 11:11] LABS: Ferritin 190.7 ng/mL (22.0-322.0)
--- NOTE | 2020-02-19 11:28 | P.PN ---
Subjective Progress Note Date: 02/19/20 Principal diagnosis: acute covid 19 pneumonitis was asked to evaluate this patient who is a 64-year-old male who has been diagnosed having acute covid 19 pneumonia and the patient has been progressively becoming hypoxic as the patient was on few liters about 2 by nasal cannula and subsequently dioxin fluids and she is up to 6 L and then 8 L and currently is on 10 L of oxygen by nasal cannula. The decompensation of worsening the oxygenation has occurred over the past 24 hours. At this point in time the patient is having difficulty breathing which is mild. He has a dry cough. He is sleeping in a prone body position. Seems to be making him more comfortable. While on 10 L of oxygen, is pulse oxing around 96%. His heart rate is at 59. BP is 111/67. He was having on and off low-grade fever throughout the hospitalization and his last temperature spike was 100.3 from 01/24/2020 at 8:00 in the evening. He was given doxycycline Rocephin and Plaquenil. He was placed on zinc sulfate and I also added IV Solu-Medrol 40 mg every 12 hours. The patient had a chest x-ray showing worsening bilateral pulmonary infiltrates and pneumonia compared to the original chest x-ray that was done on 01/23/2020. The blood gas today that was done on a 65% FiO2 showed a pH of 7.46 with a pCO2 of 26 and pO2 of 63 consistent with hypoxemia and respiratory alkalosis. White cell count was suppressed at 3.1. The patient has lymphopenia with a lymphocyte count of 0.2. The patient had a pro-calcitonin level of 0.17. LDH level was 1067 at a time of admission and hasn't been rechecked.. This patient got chest her dose from [facility]. He reported diarrhea around 3 weeks ago and his been having progressive shortness of breath over the past 2-3 weeks. He denies having any body aches. He is extensively fatigued. He was in [place] for spring. He has history of rheumatoid arthritis and the patient has been taking methotrexate for many years regarding his RA On 01/26/2020 patient seen in follow-up on medical surgical floor. Is currently on 11 L per high flow oxygen, his pulse ox is 93%, he is been afebrile, hemodynamically patient is stable, non-tachycardic. Yesterday's chest x-ray has been reviewed showing worsening bilateral pneumonias, patient is on combination of doxycycline, Rocephin, hydroxy chloroquine, and IV Solu-Medrol 40 mg every 12 hours, patient is on zinc 220 mg daily, and Ventolin inhaler. Still dyspnea, but no acute distress. Follow-up labs have been reviewed today, white blood cell count is up to 5.9, hemoglobin is 12.8, sodium is 138, potassium is 3.3, yesterday's LDH was trending up, and CRP was also trending up. Pro-calcitonin was in the intermediate range of 0.17. Lung sounds reveal crackles at bilateral bases. He states although she is still short of breath he overall feels somewhat better. On 01/27/2020 patient seen in follow-up on medical surgical floor. Patient is awake and alert, his oxygenation demand did increase overnight, he is currently on 13 L per high flow nasal cannula, he is satting about 93%, however he appears to be in no acute distress, mildly dyspneic, still has a dry cough, lung sounds reveal some crackles in bilateral lungs, no rhonchi or wheezing, patient is positive for Covid 19 infection, and she remains on a regime of hydroxychloroquine, IV Solu-Medrol, Rocephin and doxycycline. Afebrile. Today's chest x-ray has been reviewed showing persistent diffuse interstitial infiltrates, improved lung volumes with some improvement in aeration of the lung bases. Continue current medical treatment, today's labs have been reviewed, d- dimer is up to 1.44, no leukocytosis, hemoglobin is 12.1, sodium is 137, potassium 3.3, chloride is 109, CO2 is 20, B1 is 14 creatinine 0.70, LDH slightly trended up to 1728, CK is 29, CRP has significantly improved and is down to 49 On 01/28/2020 patient seen in follow-up on general medical floor. He is Covid 19 positive, FiO2 is down to 11 L on today's exam, from 13 L on yesterday's exam, his pulse ox is 92%. We will to be in any acute distress, breathing is comfortable, lung sounds reveal some minimal crackles at bilateral bases, patient remains on Rocephin, azithromycin has been discontinued, and he has completed a course of Plaquenil. Afebrile in the last 24 hours. Patient was reevaluated today on 01/29/20, he was seen on the regular medical floor, and he is on high flow nasal cannula at 13 L/m, O2 saturation is marginal anywhere between 90-94% at best patient has shortness of breath, but does not seem to be in distress. He is breathing very comfortably. His chest x-ray showed slight worsening. Crackles at the bases bilaterally noted. After evaluating the patient, and considering that his O2 saturation has been fluctuating between 84 and 95%, I recommended observing the patient in the ICU, and I transferred the patient to the ICU. ABG on high flow nasal cannula showed a pO2 of 64 he CO2 of 31 pH of 7.52. His d-dimer is 2.30. CBC is normal basic metabolic profile is normal however his LDH is 6. C-reactive protein is 47. Reevaluated today on 01/30/20, patient was transferred yesterday to the intensive care unit, and around midnight, patient desaturated significantly, and we could not maintain his O2 saturation in the 90s. Patient was also noted by the nurse taking care of him to become more tachypneic, and he was using more and more of his accessory muscles. I was notified about the patient, and I recommended immediate intubation. Patient is now on mechanical ventilation, his ventilatory settings are assist control rate of 20 and this was increased to 26. His tidal volume was 450 assist-control rate FiO2 of 60% which was cut down to 50%, and PEEP was at 5 however I increased the PEEP to 10 today. I increased the flow rate to 70 L/m. Patient seems to be clinically dry, hence I recommended a liter of IV fluid in the form of 0.9 normal saline. I have also recommended that he remains on propofol at 50 fentanyl at 0.25 mcg/kg/h, and he is on Nimbex. Chest x-ray clearly shows evidence of diffuse interstitial infiltrates consistent with covid 19 pneumonitis. ABG this morning showed a pO2 of 116 pCO2 of 88 pH of 7.13, hence adjustment was made on his ventilatory settings. And rate was increased. PEEP was increased. And FiO2 was brought down to 50%. LDH today is 1827. And C-reactive protein is 47.4. Patient was reevaluated today on 01/31/20, remains intubated and mechanically ventilated. Patient is on assist control rate of 26 tidal volume is 450 FiO2 is 40% and PEEP is 10 however I cut it down to 8 today. And increased his rate to 30. Kept him on the same tidal volume of 4.50. The reason I made the change was because of his ABG showing pO2 of 116 pCO2 of 67 and pH of 7.27. His inflammatory markers are trending down. C-reactive protein is 44. Peak airway pressure is 26, plateau pressure is 21. Patient remains on propofol at 3 0 mcg/kg/m, fentanyl at 0.5 mcg/kg/h and on Nimbex at 3 mcg/kg/m. Off norepinephrine, remains on IV fluid 0.9 normal saline at 50 mL per hour.remains on enteral feeding.labs and chest x-ray were reviewed.chest x-ray continues to show patchy bilateral interstitial infiltrates Reevaluated today on 02/01/20, patient remains in the ICU, intubated and mechanically ventilated. His ventilator settings are assist control rate of 30 tidal volume is 450 FiO2 is 40% and I increased to 45%. PEEP is at 8. Patient remains on fentanyl 0.5 Nimbex at 3 g and propofol at 60 mcg/kg/m. Chest x-ray continues to show patchy bilateral infiltrates, not much of a significant change since yesterday. ABG showed a pO2 of 63 pCO2 of 63 pH of 7.37, hence FiO2 was increased to 40% and The same at 8. CBC is relatively normal. Lymphocytes remain low however. Platelets are normal. D-dimer is 1.40. Basic metabolic profile is normal. LDH is improving, down to 693 from as high as over 2000. C- reactive protein is down from 201 now it is 42.7, steadily improving. Hence considering the improvement, and considering the patient has less O2 requirement, I would likely hold Nimbex today, assess the patient off Nimbex and decide whether we could further wean or hold sedation and give the patient any weaning trial possibly today or in the next 24 hours. The patient is seen today 02/16/2020 in follow-up in the intensive care unit. He remains intubated on the mechanical ventilator. Currently in VC plus mode with a tidal volume 450 expiratory time 1.0. Rate of 24. FiO2 40% and a PEEP of 5. Morning blood gases reveal a P O2 of 64, pCO2 39, pH 7.46. He remains sedated on propofol currently at 40 mcg/kg/m. Fentanyl at 1.5 mcg/kg per hour. Cleviprex at 1 mg per hour. Being nourished with vital HP at 43 ML's which is go al. Yesterday he tolerated pressure support of 8 and a CPAP of 5 for approximately 3 hours. He was given additional sedation holiday today with a pressure support of 12 and CPAP of 5. Unfortunately the patient developed significant tachycardia, hypertension and tachypnea. This all occurred with a daily interruption of sedation and prior to even obtaining any breathing trials today. He has been quite sedate and significantly weak and unable to follow simple commands. Suspect critical illness polyneuropathy. He had previously failed extubation and has been reintubated since 02/10/2020. Blood cultures are positive for Enterococcus faecalis. Catheter tip and urine cultures were negative. White count 5.1. Hemoglobin 11.1. Platelets 204. Sodium 136. Potassium 3.8. Bicarb 28. Creatinine 0.62. Ferritin 144. LDH 645. C- reactive protein less than 5. He remains on Unasyn. Chest x-ray continues to show extensive subcutaneous emphysema and bibasilar airspace disease, stable co mpared to yesterday. Reevaluated today on 02/17/20, patient remains in the intensive care unit, intu bated and mechanically ventilated. Yesterday patient failed any attempts for weaning trial. However we will address again today by placing the patient on pressure support of 12 and CPAP. In the meantime the patient remains on mechanical ventilation, his tidal volume is 480 assist control rate of 24 FiO2 is 40% and PEEP is 5. ABG showed a pO2 of 81 pCO2 of 37 pH of 7.43. Remains on fentanyl at 1.5 mcg/kg/m and on the prevent at 40 mcg/kg/m. Chest x-ray continues to show bilateral interstitial infiltrates secondary to Covid 19 pneumonitis. Today I have given the patient a dose of Lasix. And we have recommended increasing Lovenox 80 mg subcu twice a day. I have also raised the concern about possibly giving the patient convalescent plasma if available. In the meantime I would also hold all narcotics and sedatives, and give the patient weaning trial if possible today. Although I am not very confident that the patient will do well, but at least we'll give the patient a trial of weaning if possible. CBC is relatively normal, basic metabolic profile is relatively normal, inflammatory markers were noted, LDH is down to 552 C-reactive protein is less than 5 and ferritin is 147. All are good indicators that the patient is improving. Patient was seen by surgery yesterday, and repeat coronavirus PCR came back positive again they were asked to see him for possible tracheostomy. However now that the PCR remains positive, we'll discuss with surgery plans for tracheostomy. And PEG tube placement. Blood cultures from the were positive for Enterococcus faecalis. Patient is still on Unasyn. Reevaluated today on 02/18/20. Patient remains in the ICU, failed multiple att empts over the last few days of weaning utilizing pressure support and CPAP. Went on the pressure support as high as 12, patient wouldn't last long before he gets tired out, tachypneic, tachycardic, and I have recommended tracheostomy and PEG tube placement. This will likely be done today by Dr. Tracy. Presently the patient is on mechanical ventilation with assist control rate of 480, patien t is on volume control plus, he is also on FiO2 is 40% and PEEP of 5 rate is 24. ABG showed a pO2 68 E. CO2 of 35 pH of 7.48 Remains on fentanyl at 0.75 mcg/kg/h and on propofol at 50 mcg/kg/m. Patient did receive diuretics, however blood pressure went admitted to the low side, and I recommended fluid boluses again 500 mL at a time. Chest x-ray is showing minimal improvement in his bilateral interstitial infiltrates. Inflammatory markers are improving. C- reactive protein is down to less than 5 LDH is down to 516 and ferritin is down to 153. 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 Hence tracheostomy, PEG tube placement, eventual PICC line placement, and placement should be appropriate. Reevaluated today on 02/19/20, patient remains in the ICU, he is status post tracheostomy, postoperative day #1. He also had a PEG tube placed. This was done yesterday by Dr. Tracy. Patient remains on assist control rate of 24, tidal volume is 480 FiO2 is 40% and PEEP is 5. ABG today showed a pO2 of 79 pCO2 of 36 pH of 7.46. Patient is on propofol at 50 mcg/kg/m, fentanyl at 0.5 mcg/kg/h IV fluid 0.9 D5 at 50 ML per hour. Today will likely start tube feeding. And today I plan to hold sedation, addressed mental status, and seriously consider pressure support of 8 and CPAP. Chest x-ray is basically the same continues to show bilateral interstitial infiltrates. Last Covid testing was positive, may consider convalescent plasma transfusion for this patient if we could get it. And I will discuss this issue with his daughter for consent. CBC is relatively normal. Basic metabolic profile is normal except for slightly low sodium of 131. Covid 19 inflammatory markers are trending down. Objective - Vital Signs Vital signs: Vital Signs Temp 98.4 F 02/19/20 08:00 Pulse 77 02/19/20 11:00 Resp 37 H 02/19/20 11:00 BP 147/77 02/19/20 11:00 Pulse Ox 98 02/19/20 11:00 Intake & Output 02/18/20 02/19/20 02/19/20 18:59 06:59 18:59 Intake Total 879.563 2083.027 382.271 Output Total 928 1150 425 Balance 54.441 360.027 -42.729 Weight 98.6 kg 97.4 kg 97.4 kg Intake: IV 679 256 192 Ampicillin-Sulbactam 3 gm 100 In Sodium Chloride 0.9% 100 ml @ 200 mls/hr IVPB Q6H [facility] Rx#:[id number] Normal Saline Pressure 39 36 12 Bag Sodium Chloride 0.9% 1, 240 220 80 000 ml @ 20 mls/hr IV . Q24H [facility] Rx#:[id number] Intake, IV Titration 374.419 9243.027 190.271 Amount Ampicillin-Sulbactam 3 gm 200 In Sodium Chloride 0.9% 100 ml @ 200 mls/hr IVPB Q6H [facility] Rx#:[id number] Dextrose 5%-0.9% NaCl 1, 550 50 000 ml @ 50 mls/hr IV . Q20H [facility] Rx#:[id number] Propofol 1,000 mg In 259.160 375.607 92.547 Empty Bag 1 bag @ Titrate IV .Q0M [facility] Rx#: [id number] fentaNYL (PF) 2,500 mcg 44.281 128.42 47.724 In Sodium Chloride 0.9% 200 ml @ 1.5 MCG/KG/HR 15 .69 mls/hr IV .[id number] [facility] Rx#:[id number] Tube Feeding 0 Other 0 Output: Urine 925 1150 425 Estimated Blood Loss 3 Other: Voiding Method Indwelling Catheter Indwelling Catheter ABP, PAP, CO, CI - Last Documented Arterial Blood Pressure 179/69 - Exam GENERAL EXAM: Alert, very pleasant, 64-year-old white male, on mechanical ventilation, sedated , on fentanyl and on propofol. HEENT: PERRLA, EOMI, moist mucous membranes, tracheostomy is intact. CHEST: No chest wall deformity. Symmetrical expansion. LUNGS: Minimal crackles at the bases no rhonchi and no wheezes. CVS: Regular rate and rhythm, normal S1 and S2, no gallops, no murmurs, no rubs ABDOMEN: Soft, nontender. No hepatosplenomegaly, normal bowel sounds, no guarding or rigidity. PEG tube is intact EXTREMITIES: No clubbing, no edema, no cyanosis, 2+ pulses and upper and lower extremities. MUSCULOSKELETAL: Muscle tone normal. SKIN: No rashes CENTRAL NERVOUS SYSTEM: Sedated, could not be assessed. However the patient would have a neurological assessment shortly after holding his propofol and fentanyl. PSYCHIATRIC: Could not be assessed - Labs CBC & Chem 7: 02/19/20 06:00 02/19/20 06:00 Labs: Abnormal Lab Results - Last 24 Hours (Table) 02/18/20 02/19/20 02/19/20 Range/Units 18:10 06:00 06:00 RBC 3.73 L (4.30-5.90) m/uL Hgb 11.2 L (13.0-17.5) gm/dL Hct 35.9 L (39.0-53.0) % RDW 19.2 H (11.5-15.5) % Lymphocytes # 0.6 L (1.0-4.8) k/uL D-Dimer 2.02 H (<0.60) mg/L FEU ABG pH (7.35-7.45) ABG pO2 (83-108) mmHg ABG Total CO2 (19-24) mmol/L Sodium (137-145) mmol/L Creatinine (0.66-1.25) mg/dL POC Glucose (mg/dL) 70 L (75-99) mg/dL Calcium (8.4-10.2) mg/dL ALT (4-49) U/L Lactate Dehydrogenase (313-618) U/L Creatine Kinase (55-170) U/L C-Reactive Protein (<10.0) mg/L Total Protein (6.3-8.2) g/dL Albumin (3.5-5.0) g/dL 02/19/20 02/19/20 Range/Units 06:00 07:13 RBC (4.30-5.90) m/uL Hgb (13.0-17.5) gm/dL Hct (39.0-53.0) % RDW (11.5-15.5) % Lymphocytes # (1.0-4.8) k/uL D-Dimer (<0.60) mg/L FEU ABG pH 7.46 H (7.35-7.45) ABG pO2 79 L (83-108) mmHg ABG Total CO2 26 H (19-24) mmol/L Sodium 131 L (137-145) mmol/L Creatinine 0.53 L (0.66-1.25) mg/dL POC Glucose (mg/dL) (75-99) mg/dL Calcium 8.1 L (8.4-10.2) mg/dL ALT 56 H (4-49) U/L Lactate Dehydrogenase 643 H (313-618) U/L Creatine Kinase <20 L (55-170) U/L C-Reactive Protein 14.1 H (<10.0) mg/L Total Protein 4.7 L (6.3-8.2) g/dL Albumin 2.4 L (3.5-5.0) g/dL Microbiology - Last 24 Hours (Table) 02/13/20 16:05 Blood Culture - Preliminary Blood No Growth after 120 hours 02/12/20 05:32 Blood Culture - Final Blood Assessment and Plan Assessment: acute covid 19 pneumonitis. acute hypoxic respiratory failure secondary to above. Patient was extubated earlier last week, however he failed extubation and he had to be reintubated on 02/09. And remains intubated since then. Patient underwent tracheostomy on 4/29/20, and that is mostly because of failure to wean. Acute sepsis secondary to Enterococcus faecalis bacteremia. Suspect critical illness polyneuropathy/myopathy. Main contributing factor to failure to wean Acute hypercapnic respiratory failure secondary to severe pneumonitis secondary to covid 19. diarrhea due to GI manifestation of Covid 19 infection, resolved. Status post tracheostomy and PEG tube placement, postoperative day #1. Recommendation: Continue ventilatory support. However the patient will be given a trial of weaning with pressure support of 8 and CPAP if possible today. That will be done after holding sedation and narcotics. Continue nutritional support. /enteral feeding. Via PEG tube to be started to day. Continue Unasyn for Enterococcus faecalis bacteremia and sepsis. Consider treating the patient with convalescent plasma if available and we could have him approved for that treatment. Continue GI and DVT prophylaxis. Continue Lovenox. Continue bronchodilators and low-dose steroids. Patient is on prednisone 30 mg by mouth daily We'll continue to follow. Critical care time is 34 minutes. Time with Patient: Greater than 30
[2020-02-19 11:38] LABS: Glucose,Whole Blood 114 mg/dL (75-99)
[2020-02-19] MEDS ORDERED: IPRATROPIUM-ALBUTEROL 3 ML NEB INHALATION SCH (12:00)
--- NOTE | 2020-02-19 14:15 | P.PN ---
Subjective Progress Note Date: 02/19/20 CHIEF COMPLAINT: Trach and PEG HISTORY OF PRESENT ILLNESS: Patient is status post trach and PEG with Dr. Tracy. Postop day #1. PHYSICAL EXAM: VITAL SIGNS: Reviewed. GENERAL: Well-developed in no acute distress. HEENT: Trach noted without bleeding. No sclera icterus. Extraocular movements grossly intact. Moist buccal mucosa. Head is atraumatic, normocephalic. ABDOMEN: Soft. Nondistended. Nontender. PEG tube intact NEUROLOGIC: Unable to thoroughly assess secondary to mechanical ventilation ASSESSMENT: 1. Acute hypoxic respiratory failure 2. Covid 19 pneumonia PLAN: Continue ventilator management per Dr. Limon Begin tube feedings today per dietary recommendations Nurse practitioner note has been reviewed by physician. Signing provider agrees with the documented findings, assessment, and plan of care. Objective - Vital Signs Vital signs: Vital Signs Temp 98.7 F 02/19/20 12:00 Pulse 95 02/19/20 14:00 Resp 27 H 02/19/20 14:00 BP 134/87 02/19/20 14:00 Pulse Ox 99 02/19/20 14:00 Intake & Output 02/18/20 02/19/20 02/19/20 18:59 06:59 18:59 Intake Total 237.301 3108.027 522.271 Output Total 928 1150 845 Balance 54.441 360.027 -322.729 Weight 98.6 kg 97.4 kg 97.4 kg Intake: IV 679 256 284 Ampicillin-Sulbactam 3 gm 100 In Sodium Chloride 0.9% 100 ml @ 200 mls/hr IVPB Q6H [facility] Rx#:[id number] Normal Saline Pressure 39 36 24 Bag Sodium Chloride 0.9% 1, 240 220 160 000 ml @ 20 mls/hr IV . Q24H [facility] Rx#:[id number] Intake, IV Titration 234.372 6721.027 190.271 Amount Ampicillin-Sulbactam 3 gm 200 In Sodium Chloride 0.9% 100 ml @ 200 mls/hr IVPB Q6H [facility] Rx#:[id number] Dextrose 5%-0.9% NaCl 1, 550 50 000 ml @ 50 mls/hr IV . Q20H [facility] Rx#:[id number] Propofol 1,000 mg In 259.160 375.607 92.547 Empty Bag 1 bag @ Titrate IV .Q0M [facility] Rx#: [id number] fentaNYL (PF) 2,500 mcg 44.281 128.42 47.724 In Sodium Chloride 0.9% 200 ml @ 1.5 MCG/KG/HR 15 .69 mls/hr IV .[id number] [facility] Rx#:[id number] Tube Feeding 0 48 Other 0 Output: Urine 925 1150 845 Estimated Blood Loss 3 Other: Voiding Method Indwelling Catheter Indwelling Catheter Indwelling Catheter ABP, PAP, CO, CI - Last Documented Arterial Blood Pressure 208/92 - Labs CBC & Chem 7: 02/19/20 06:00 02/19/20 06:00 Labs: Abnormal Lab Results - Last 24 Hours (Table) 02/18/20 02/19/20 02/19/20 Range/Units 18:10 06:00 06:00 RBC 3.73 L (4.30-5.90) m/uL Hgb 11.2 L (13.0-17.5) gm/dL Hct 35.9 L (39.0-53.0) % RDW 19.2 H (11.5-15.5) % Lymphocytes # 0.6 L (1.0-4.8) k/uL D-Dimer 2.02 H (<0.60) mg/L FEU ABG pH (7.35-7.45) ABG pO2 (83-108) mmHg ABG Total CO2 (19-24) mmol/L Sodium (137-145) mmol/L Creatinine (0.66-1.25) mg/dL POC Glucose (mg/dL) 70 L (75-99) mg/dL Calcium (8.4-10.2) mg/dL ALT (4-49) U/L Lactate Dehydrogenase (313-618) U/L Creatine Kinase (55-170) U/L C-Reactive Protein (<10.0) mg/L Total Protein (6.3-8.2) g/dL Albumin (3.5-5.0) g/dL 02/19/20 02/19/20 02/19/20 Range/Units 06:00 07:13 11:37 RBC (4.30-5.90) m/uL Hgb (13.0-17.5) gm/dL Hct (39.0-53.0) % RDW (11.5-15.5) % Lymphocytes # (1.0-4.8) k/uL D-Dimer (<0.60) mg/L FEU ABG pH 7.46 H (7.35-7.45) ABG pO2 79 L (83-108) mmHg ABG Total CO2 26 H (19-24) mmol/L Sodium 131 L (137-145) mmol/L Creatinine 0.53 L (0.66-1.25) mg/dL POC Glucose (mg/dL) 114 H (75-99) mg/dL Calcium 8.1 L (8.4-10.2) mg/dL ALT 56 H (4-49) U/L Lactate Dehydrogenase 643 H (313-618) U/L Creatine Kinase <20 L (55-170) U/L C-Reactive Protein 14.1 H (<10.0) mg/L Total Protein 4.7 L (6.3-8.2) g/dL Albumin 2.4 L (3.5-5.0) g/dL Microbiology - Last 24 Hours (Table) 02/13/20 16:05 Blood Culture - Preliminary Blood No Growth after 120 hours
[2020-02-19] MEDS: DEXTROSE 5%-0.9% NACL 1,000 ML IV SCH (15:49)
[2020-02-19] MEDS: FLUCONAZOLE 100 MG TAB NG-TUBE SCH (15:50)
--- NOTE | 2020-02-19 17:27 | PN ---
PROGRESS NOTE DATE OF SERVICE: 02/19/2020 REASON FOR FOLLOWUP: Pneumonia and bacteremia. INTERVAL HISTORY: The patient is currently afebrile. The patient remains to be hemodynamically stable. Not on any pressor support. FiO2 is currently stable at 40%. No significant purulent secretion through the ET or any worsening diarrhea reported by the nursing staff. PHYSICAL EXAMINATION: Blood pressure 133/69 with a pulse of 105, temperature 99.1, he is 100% on 40% FiO2. General description is a middle-aged male, lying in bed in no distress. RESPIRATORY SYSTEM: Unlabored breathing, some coarse breath sounds bilaterally, no wheeze. HEART: S1, S2. Regular rate and rhythm. ABDOMEN: Soft, no tenderness. LABS: Hemoglobin 11.1, white count 6.6, BUN of 13, creatinine 0.53. DIAGNOSTIC IMPRESSION AND PLAN: Patient with acute respiratory failure which is multifactorial in this patient who did have a component of pneumonia, possible evidence of Enterococcus faecalis bacteremia, thought to be catheter related, has been discontinued and the catheter cultures have been negative. Follow-up blood culture has been negative as well. Patient to continue with Unasyn and Diflucan and will monitor clinical course closely. MMODL / IJN: [id number] /
[2020-02-19 23:44] LABS: ABG Base Excess 0.2 mmol/L; ABG HCO3 25 mmol/L (21-25); ABG Oxygen Saturation 97.4 % (94-97); ABG PCO2 38 mmHg (35-45); ABG PH 7.42 (7.35-7.45); ABG PO2 93 mmHg (83-108); ABG TCO2 26 mmol/L (19-24); Allen Test Performed? Yes
[2020-02-20] MEDS: INSULIN ASPART (NovoLOG) 100 UNIT/ML VIAL SQ SCH ×4 (01:47→18:23)
[2020-02-20] MEDS ORDERED: MAGNESIUM SULFATE-D5W PMX 1 GM in DEXTROSE/WATER 1 100ML.BAG IVPB ONE (02:00)
[2020-02-20] MEDS: AMPICILLIN-SULBACTAM 3 GM in SODIUM CHLORIDE 0.9% 100 ML IVPB SCH ×4 (03:44→21:05)
[2020-02-20] MEDS: PROPOFOL 1,000 MG in EMPTY BAG 1 BAG IV SCH (03:47)
[2020-02-20 06:16] LABS: Anisocytosis Slight; Basophils % (A) 0 %; Eosinophils # (A) 0.2 k/uL (0-0.7); Eosinophils % (A) 4 %; HCT 35.6 % (39.0-53.0); HGB 11.2 gm/dL (13.0-17.5); Hypochromasia Moderate; Lymphocytes # (A) 0.7 k/uL (1.0-4.8); Lymphocytes % (A) 12 %; MCH 30.9 pg (25.0-35.0); MCHC 31.6 g/dL (31.0-37.0); Macrocytosis Moderate; Mean Platelet Volume 7.9; Monocytes # (A) 0.3 k/uL (0-1.0); Monocytes % (A) 5 %; Neutrophils # (A) 4.6 k/uL (1.3-7.7); Neutrophils % (A) 77 %; Platelet Count 215 k/uL (150-450); RBC 3.63 m/uL (4.30-5.90); RDW 19.3 % (11.5-15.5); WBC 5.9 k/uL (3.8-10.6)
[2020-02-20] MEDS: NOREPINEPHRINE 4 MG in SODIUM CHLORIDE 0.9% 250 ML IV SCH ×2 (06:19→15:35)
[2020-02-20 06:33] LABS: ALT 45 U/L (4-49); AST 25 U/L (17-59); African American GFR (CKD) >90 (>60 ml/min/1.73 sqM); Albumin 2.3 g/dL (3.5-5.0); Alkaline Phosphatase 78 U/L (38-126); Anion Gap 2 mmol/L; Blood Urea Nitrogen 13 mg/dL (9-20); Calcium 8.2 mg/dL (8.4-10.2); Carbon Dioxide 27 mmol/L (22-30); Chloride 106 mmol/L (98-107); Glucose 104 mg/dL (74-99); Non-African American GFR(CKD) >90 (>60 ml/min/1.73 sqM); Potassium 3.4 mmol/L (3.5-5.1); Sodium 135 mmol/L (137-145); Total Bilirubin 0.4 mg/dL (0.2-1.3); Total Protein 4.5 g/dL (6.3-8.2)
[2020-02-20] MEDS: CLEVIDIPINE BUTYRATE 25 MG in EMPTY BAG 1 BAG IV SCH (07:42)
[2020-02-20 07:43] LABS: ABG Base Excess 2.5 mmol/L; ABG HCO3 27 mmol/L (21-25); ABG Oxygen Saturation 96.7 % (94-97); ABG PCO2 39 mmHg (35-45); ABG PH 7.44 (7.35-7.45); ABG PO2 80 mmHg (83-108); ABG TCO2 28 mmol/L (19-24); Allen Test Performed? Yes
[2020-02-20 07:45] LABS: Glucose,Whole Blood 114 mg/dL (75-99)
[2020-02-20 07:45] LABS: Glucose,Whole Blood 106 mg/dL (75-99)
[2020-02-20 07:45] LABS: Glucose,Whole Blood 89 mg/dL (75-99)
[2020-02-20] MEDS: POTASSIUM BICARBONATE/CIT AC 20 MEQ TABLET.EFF NG-TUBE SCH ×2 (08:43→10:19)
[2020-02-20] MEDS: predniSONE 10 MG TAB PO SCH (09:33)
[2020-02-20] MEDS: ASCORBIC ACID 500 MG TAB OG-TUBE SCH ×2 (09:33→21:05)
[2020-02-20] MEDS: CHLORHEXIDINE GLUCONATE 15 ML CUP MUCOUS MEM SCH ×2 (09:33→21:05)
[2020-02-20] MEDS: PANTOPRAZOLE 40 MG/10 ML VIAL IVP SCH (09:33)
[2020-02-20] MEDS: ZINC SULFATE 220 MG CAP PO SCH (09:34)
--- NOTE | 2020-02-20 09:40 | XR ---
EXAMINATION TYPE: XR chest 1V portable DATE OF EXAM: 02/20/2020 COMPARISON: 02/19/2020 HISTORY: Progress exam. Shortness of breath. TECHNIQUE: Single frontal view of the chest is obtained. FINDINGS: Overall unchanged reticular opacities throughout both lungs with basilar predominance. Ext ensive overlying subcutaneous emphysema. Enlarged cardiomediastinal silhouette. Midline tracheostomy. Unchanged positioning of a left internal jugular central venous catheter. Lung apices are not imaged and cannot be evaluated. IMPRESSION: Reticular opacities remain unchanged throughout the lungs with a bibasilar predominance. Similar extensive subcutaneous emphysema.
[2020-02-20] MEDS: ENOXAPARIN 80 MG/0.8 ML SYRINGE SQ SCH ×2 (10:34→21:05)
--- NOTE | 2020-02-20 11:26 | XR ---
EXAMINATION TYPE: XR chest 1V portable DATE OF EXAM: 02/20/2020 COMPARISON: 02/20/2020 HISTORY: PICC placement TECHNIQUE: Single frontal view of the chest is obtained. FINDINGS: Left-sided internal jugular central venous catheter and midline tracheostomy are redemonst rated. The left PICC terminates in the superior vena cava junction, appropriately placed. Remainder o f the chest x-ray findings are similar to the prior earlier on the same date. IMPRESSION: Interval insertion of a left-sided PICC terminating in the superior vena cava, appropria tely placed. Remainder of the exam is similar to the prior earlier on the same date.
[2020-02-20 11:59] LABS: Glucose,Whole Blood 119 mg/dL (75-99)
--- NOTE | 2020-02-20 12:21 | P.PN ---
Subjective Progress Note Date: 02/20/20 CHIEF COMPLAINT: Trach and PEG HISTORY OF PRESENT ILLNESS: Patient is status post trach and PEG with Dr. Tracy. Postop day #2. Patient is tolerating tube feedings. PHYSICAL EXAM: VITAL SIGNS: Reviewed. GENERAL: Well-developed in no acute distress. HEENT: Trach noted without bleeding. No sclera icterus. Extraocular movements grossly intact. Moist buccal mucosa. Head is atraumatic, normocephalic. ABDOMEN: Soft. Nondistended. Nontender. PEG tube intact NEUROLOGIC: Unable to thoroughly assess secondary to mechanical ventilation ASSESSMENT: 1. Acute hypoxic respiratory failure 2. Covid 19 pneumonia PLAN: Continue ventilator management per Dr. Simpson Continue tube feedings as tolerated Nurse practitioner note has been reviewed by physician. Signing provider agrees with the documented findings, assessment, and plan of care. Objective - Vital Signs Vital signs: Vital Signs Temp 98.4 F 02/20/20 12:00 Pulse 72 02/20/20 12:00 Resp 12 02/20/20 12:00 BP 174/88 02/20/20 12:00 Pulse Ox 97 02/20/20 12:00 Intake & Output 02/19/20 02/20/20 02/20/20 18:59 06:59 18:59 Intake Total 1208.771 1807.475 685.985 Output Total 1410 820 735 Balance -139.474 857.475 -49.015 Weight 97.4 kg 100.2 kg Intake: IV 686 452 170 Ampicillin-Sulbactam 3 gm 200 200 100 In Sodium Chloride 0.9% 100 ml @ 200 mls/hr IVPB Q6H [facility] Rx#:[id number] Dextrose 5%-0.9% NaCl 1, 350 000 ml @ 50 mls/hr IV . Q20H [facility] Rx#:[id number] Normal Saline Pressure 36 12 Bag Sodium Chloride 0.9% 1, 100 240 70 000 ml @ 20 mls/hr IV . Q24H [facility] Rx#:[id number] Intake, IV Titration 266.526 367.475 119.985 Amount Dextrose 5%-0.9% NaCl 1, 50 000 ml @ 50 mls/hr IV . Q20H [facility] Rx#:[id number] Magnesium Sulfate-D5w Pmx 100 1 gm In Dextrose/Water 1 100ml.bag @ 100 mls/hr IVPB ONCE ONE Rx#: [id number] Norepinephrine 4 mg In 19.879 Sodium Chloride 0.9% 250 ml @ 0.05 MCG/KG/MIN 18. 993 mls/hr IV .[id number] [facility] Rx#:[id number] Propofol 1,000 mg In 159.213 247.596 Empty Bag 1 bag @ Titrate IV .Q0M [facility] Rx#: [id number] fentaNYL (PF) 2,500 mcg 57.313 119.985 In Sodium Chloride 0.9% 200 ml @ 1.5 MCG/KG/HR 15 .69 mls/hr IV .[id number] [facility] Rx#:[id number] Tube Feeding 288 768 336 Other 30 90 60 Output: Urine 1410 820 735 Other: Voiding Method Indwelling Catheter Indwelling Catheter ABP, PAP, CO, CI - Last Documented Arterial Blood Pressure 94/51 - Labs CBC & Chem 7: 02/20/20 05:33 02/20/20 05:33 Labs: Abnormal Lab Results - Last 24 Hours (Table) 02/19/20 02/19/20 02/19/20 Range/Units 17:25 23:40 23:51 RBC (4.30-5.90) m/uL Hgb (13.0-17.5) gm/dL Hct (39.0-53.0) % RDW (11.5-15.5) % Lymphocytes # (1.0-4.8) k/uL ABG pO2 (83-108) mmHg ABG HCO3 (21-25) mmol/L ABG Total CO2 26 H (19-24) mmol/L ABG O2 Saturation 97.4 H (94-97) % Sodium (137-145) mmol/L Potassium (3.5-5.1) mmol/L Creatinine (0.66-1.25) mg/dL Glucose (74-99) mg/dL POC Glucose (mg/dL) 114 H 106 H (75-99) mg/dL Calcium (8.4-10.2) mg/dL Total Protein (6.3-8.2) g/dL Albumin (3.5-5.0) g/dL 02/20/20 02/20/20 02/20/20 Range/Units 05:33 05:33 07:38 RBC 3.63 L (4.30-5.90) m/uL Hgb 11.2 L (13.0-17.5) gm/dL Hct 35.6 L (39.0-53.0) % RDW 19.3 H (11.5-15.5) % Lymphocytes # 0.7 L (1.0-4.8) k/uL ABG pO2 80 L (83-108) mmHg ABG HCO3 27 H (21-25) mmol/L ABG Total CO2 28 H (19-24) mmol/L ABG O2 Saturation (94-97) % Sodium 135 L (137-145) mmol/L Potassium 3.4 L (3.5-5.1) mmol/L Creatinine 0.54 L (0.66-1.25) mg/dL Glucose 104 H (74-99) mg/dL POC Glucose (mg/dL) (75-99) mg/dL Calcium 8.2 L (8.4-10.2) mg/dL Total Protein 4.5 L (6.3-8.2) g/dL Albumin 2.3 L (3.5-5.0) g/dL 02/20/20 Range/Units 11:57 RBC (4.30-5.90) m/uL Hgb (13.0-17.5) gm/dL Hct (39.0-53.0) % RDW (11.5-15.5) % Lymphocytes # (1.0-4.8) k/uL ABG pO2 (83-108) mmHg ABG HCO3 (21-25) mmol/L ABG Total CO2 (19-24) mmol/L ABG O2 Saturation (94-97) % Sodium (137-145) mmol/L Potassium (3.5-5.1) mmol/L Creatinine (0.66-1.25) mg/dL Glucose (74-99) mg/dL POC Glucose (mg/dL) 119 H (75-99) mg/dL Calcium (8.4-10.2) mg/dL Total Protein (6.3-8.2) g/dL Albumin (3.5-5.0) g/dL Microbiology - Last 24 Hours (Table) 02/13/20 16:05 Blood Culture - Final Blood No Growth after 144 hours
--- NOTE | 2020-02-20 12:21 | P.PN ---
Subjective This is Tila Benitez PA-C scribing on behalf of Dr. Delaney The patient was evaluated by Dr. Delaney Chart reviewed only HPI Patient is a 64-year-old male with a history of rheumatoid arthritis who was transferred from [facility] for treatment of Covid 19. Cardiology was initially consulted for bradycardia. He developed worsening respiratory failure requiring mechanical ventilation. He then became tachycardic and was given m etoprolol 12.5 mg twice a day for heart rates over 90s. He was extubated last week but failed extubation and had to be reintubated. Yesterday he underwent tracheostomy due to failure to wean and a PEG tube placement. Apparently while he was being turned, he became bradycardic and hypotensive. Strips reviewed by Dr. Delaney, revealed sinus bradycardia with short pauses, no AV block. ROS: Unable to obtain EXAMINATION: Patient is afebrile, pulse in the 80s, respirations 16, blood pressure 135/97, oxygen saturation 97% on mechanical ventilation Patient was not examined, Covid positive REVIEW OF LABS, ECG & MEDICAL DATA WBC 5.9, hemoglobin 11.2, platelets 215, potassium 3.4, creatinine 0.54, BUN 13 troponin negative Echocardiogram shows EF 55-60% IMPRESSION / ASSESSMENT: Acute hypoxic respiratory failure requiring mechanical ventilation, status post tracheostomy COVID-19 pneumonia Sinus bradycardia with hypotension, likely vagal response Acute sepsis secondary to enterococcus faecalis bacteremia, remains on antibiotics Status post PEG tube placement History of rheumatoid arthritis PLAN: Recommend observation only for bradycardia, avoid hypoxia Hold off on beta blockers Objective - Vital Signs Vital signs: Vital Signs Temp 98.6 F 02/20/20 08:00 Pulse 80 02/20/20 10:00 Resp 16 02/20/20 10:00 BP 135/97 02/20/20 10:00 Pulse Ox 97 02/20/20 10:00 Intake & Output 02/19/20 02/20/20 02/20/20 18:59 06:59 18:59 Intake Total 1747.173 6700.475 439.985 Output Total 1410 820 575 Balance -139.474 857.475 -135.015 Weight 97.4 kg 100.2 kg Intake: IV 686 452 50 Ampicillin-Sulbactam 3 gm 200 200 In Sodium Chloride 0.9% 100 ml @ 200 mls/hr IVPB Q6H [facility] Rx#:[id number] Dextrose 5%-0.9% NaCl 1, 350 000 ml @ 50 mls/hr IV . Q20H [facility] Rx#:[id number] Normal Saline Pressure 36 12 Bag Sodium Chloride 0.9% 1, 100 240 50 000 ml @ 20 mls/hr IV . Q24H [facility] Rx#:[id number] Intake, IV Titration 266.526 367.475 119.985 Amount Dextrose 5%-0.9% NaCl 1, 50 000 ml @ 50 mls/hr IV . Q20H [facility] Rx#:[id number] Magnesium Sulfate-D5w Pmx 100 1 gm In Dextrose/Water 1 100ml.bag @ 100 mls/hr IVPB ONCE ONE Rx#: [id number] Norepinephrine 4 mg In 19.879 Sodium Chloride 0.9% 250 ml @ 0.05 MCG/KG/MIN 18. 993 mls/hr IV .[id number] [facility] Rx#:[id number] Propofol 1,000 mg In 159.213 247.596 Empty Bag 1 bag @ Titrate IV .Q0M [facility] Rx#: [id number] fentaNYL (PF) 2,500 mcg 57.313 119.985 In Sodium Chloride 0.9% 200 ml @ 1.5 MCG/KG/HR 15 .69 mls/hr IV .[id number] [facility] Rx#:[id number] Tube Feeding 288 768 240 Other 30 90 30 Output: Urine 1410 820 575 Other: Voiding Method Indwelling Catheter Indwelling Catheter ABP, PAP, CO, CI - Last Documented Arterial Blood Pressure 94/51 - Labs CBC & Chem 7: 02/20/20 05:33 02/20/20 05:33 Labs: Abnormal Lab Results - Last 24 Hours (Table) 02/19/20 02/19/20 02/19/20 Range/Units 11:37 17:25 23:40 RBC (4.30-5.90) m/uL Hgb (13.0-17.5) gm/dL Hct (39.0-53.0) % RDW (11.5-15.5) % Lymphocytes # (1.0-4.8) k/uL ABG pO2 (83-108) mmHg ABG HCO3 (21-25) mmol/L ABG Total CO2 26 H (19-24) mmol/L ABG O2 Saturation 97.4 H (94-97) % Sodium (137-145) mmol/L Potassium (3.5-5.1) mmol/L Creatinine (0.66-1.25) mg/dL Glucose (74-99) mg/dL POC Glucose (mg/dL) 114 H 114 H (75-99) mg/dL Calcium (8.4-10.2) mg/dL Total Protein (6.3-8.2) g/dL Albumin (3.5-5.0) g/dL 02/19/20 02/20/20 02/20/20 Range/Units 23:51 05:33 05:33 RBC 3.63 L (4.30-5.90) m/uL Hgb 11.2 L (13.0-17.5) gm/dL Hct 35.6 L (39.0-53.0) % RDW 19.3 H (11.5-15.5) % Lymphocytes # 0.7 L (1.0-4.8) k/uL ABG pO2 (83-108) mmHg ABG HCO3 (21-25) mmol/L ABG Total CO2 (19-24) mmol/L ABG O2 Saturation (94-97) % Sodium 135 L (137-145) mmol/L Potassium 3.4 L (3.5-5.1) mmol/L Creatinine 0.54 L (0.66-1.25) mg/dL Glucose 104 H (74-99) mg/dL POC Glucose (mg/dL) 106 H (75-99) mg/dL Calcium 8.2 L (8.4-10.2) mg/dL Total Protein 4.5 L (6.3-8.2) g/dL Albumin 2.3 L (3.5-5.0) g/dL 02/20/20 Range/Units 07:38 RBC (4.30-5.90) m/uL Hgb (13.0-17.5) gm/dL Hct (39.0-53.0) % RDW (11.5-15.5) % Lymphocytes # (1.0-4.8) k/uL ABG pO2 80 L (83-108) mmHg ABG HCO3 27 H (21-25) mmol/L ABG Total CO2 28 H (19-24) mmol/L ABG O2 Saturation (94-97) % Sodium (137-145) mmol/L Potassium (3.5-5.1) mmol/L Creatinine (0.66-1.25) mg/dL Glucose (74-99) mg/dL POC Glucose (mg/dL) (75-99) mg/dL Calcium (8.4-10.2) mg/dL Total Protein (6.3-8.2) g/dL Albumin (3.5-5.0) g/dL Microbiology - Last 24 Hours (Table) 02/13/20 16:05 Blood Culture - Final Blood No Growth after 144 hours
--- NOTE | 2020-02-20 12:29 | P.PN ---
Subjective Progress Note Date: 02/20/20 Principal diagnosis: acute covid 19 pneumonitis was asked to evaluate this patient who is a 64-year-old male who has been diagnosed having acute covid 19 pneumonia and the patient has been progressively becoming hypoxic as the patient was on few liters about 2 by nasal cannula and subsequently dioxin fluids and she is up to 6 L and then 8 L and currently is on 10 L of oxygen by nasal cannula. The decompensation of worsening the oxygenation has occurred over the past 24 hours. At this point in time the patient is having difficulty breathing which is mild. He has a dry cough. He is sleeping in a prone body position. Seems to be making him more comfortable. While on 10 L of oxygen, is pulse oxing around 96%. His heart rate is at 59. BP is 111/67. He was having on and off low-grade fever throughout the hospitalization and his last temperature spike was 100.3 from 01/24/2020 at 8:00 in the evening. He was given doxycycline Rocephin and Plaquenil. He was placed on zinc sulfate and I also added IV Solu-Medrol 40 mg every 12 hours. The patient had a chest x-ray showing worsening bilateral pulmonary infiltrates and pneumonia compared to the original chest x-ray that was done on 01/23/2020. The blood gas today that was done on a 65% FiO2 showed a pH of 7.46 with a pCO2 of 26 and pO2 of 63 consistent with hypoxemia and respiratory alkalosis. White cell count was suppressed at 3.1. The patient has lymphopenia with a lymphocyte count of 0.2. The patient had a pro-calcitonin level of 0.17. LDH level was 1067 at a time of admission and hasn't been rechecked.. This patient got chest her dose from [facility]. He reported diarrhea around 3 weeks ago and his been having progressive shortness of breath over the past 2-3 weeks. He denies having any body aches. He is extensively fatigued. He was in [place] for spring. He has history of rheumatoid arthritis and the patient has been taking methotrexate for many years regarding his RA On 01/26/2020 patient seen in follow-up on medical surgical floor. Is currently on 11 L per high flow oxygen, his pulse ox is 93%, he is been afebrile, hemodynamically patient is stable, non-tachycardic. Yesterday's chest x-ray has been reviewed showing worsening bilateral pneumonias, patient is on combination of doxycycline, Rocephin, hydroxy chloroquine, and IV Solu-Medrol 40 mg every 12 hours, patient is on zinc 220 mg daily, and Ventolin inhaler. Still dyspnea, but no acute distress. Follow-up labs have been reviewed today, white blood cell count is up to 5.9, hemoglobin is 12.8, sodium is 138, potassium is 3.3, yesterday's LDH was trending up, and CRP was also trending up. Pro-calcitonin was in the intermediate range of 0.17. Lung sounds reveal crackles at bilateral bases. He states although she is still short of breath he overall feels somewhat better. On 01/27/2020 patient seen in follow-up on medical surgical floor. Patient is awake and alert, his oxygenation demand did increase overnight, he is currently on 13 L per high flow nasal cannula, he is satting about 93%, however he appears to be in no acute distress, mildly dyspneic, still has a dry cough, lung sounds reveal some crackles in bilateral lungs, no rhonchi or wheezing, patient is positive for Covid 19 infection, and she remains on a regime of hydroxychloroquine, IV Solu-Medrol, Rocephin and doxycycline. Afebrile. Today's chest x-ray has been reviewed showing persistent diffuse interstitial infiltrates, improved lung volumes with some improvement in aeration of the lung bases. Continue current medical treatment, today's labs have been reviewed, d- dimer is up to 1.44, no leukocytosis, hemoglobin is 12.1, sodium is 137, potassium 3.3, chloride is 109, CO2 is 20, B1 is 14 creatinine 0.70, LDH slightly trended up to 1728, CK is 29, CRP has significantly improved and is down to 49 On 01/28/2020 patient seen in follow-up on general medical floor. He is Covid 19 positive, FiO2 is down to 11 L on today's exam, from 13 L on yesterday's exam, his pulse ox is 92%. We will to be in any acute distress, breathing is comfortable, lung sounds reveal some minimal crackles at bilateral bases, patient remains on Rocephin, azithromycin has been discontinued, and he has completed a course of Plaquenil. Afebrile in the last 24 hours. Patient was reevaluated today on 01/29/20, he was seen on the regular medical floor, and he is on high flow nasal cannula at 13 L/m, O2 saturation is marginal anywhere between 90-94% at best patient has shortness of breath, but does not seem to be in distress. He is breathing very comfortably. His chest x-ray showed slight worsening. Crackles at the bases bilaterally noted. After evaluating the patient, and considering that his O2 saturation has been fluctuating between 84 and 95%, I recommended observing the patient in the ICU, and I transferred the patient to the ICU. ABG on high flow nasal cannula showed a pO2 of 64 he CO2 of 31 pH of 7.52. His d-dimer is 2.30. CBC is normal basic metabolic profile is normal however his LDH is 6. C-reactive protein is 47. Reevaluated today on 01/30/20, patient was transferred yesterday to the intensive care unit, and around midnight, patient desaturated significantly, and we could not maintain his O2 saturation in the 90s. Patient was also noted by the nurse taking care of him to become more tachypneic, and he was using more and more of his accessory muscles. I was notified about the patient, and I recommended immediate intubation. Patient is now on mechanical ventilation, his ventilatory settings are assist control rate of 20 and this was increased to 26. His tidal volume was 450 assist-control rate FiO2 of 60% which was cut down to 50%, and PEEP was at 5 however I increased the PEEP to 10 today. I increased the flow rate to 70 L/m. Patient seems to be clinically dry, hence I recommended a liter of IV fluid in the form of 0.9 normal saline. I have also recommended that he remains on propofol at 50 fentanyl at 0.25 mcg/kg/h, and he is on Nimbex. Chest x-ray clearly shows evidence of diffuse interstitial infiltrates consistent with covid 19 pneumonitis. ABG this morning showed a pO2 of 116 pCO2 of 88 pH of 7.13, hence adjustment was made on his ventilatory settings. And rate was increased. PEEP was increased. And FiO2 was brought down to 50%. LDH today is 1827. And C-reactive protein is 47.4. Patient was reevaluated today on 01/31/20, remains intubated and mechanically ventilated. Patient is on assist control rate of 26 tidal volume is 450 FiO2 is 40% and PEEP is 10 however I cut it down to 8 today. And increased his rate to 30. Kept him on the same tidal volume of 4.50. The reason I made the change was because of his ABG showing pO2 of 116 pCO2 of 67 and pH of 7.27. His inflammatory markers are trending down. C-reactive protein is 44. Peak airway pressure is 26, plateau pressure is 21. Patient remains on propofol at 3 0 mcg/kg/m, fentanyl at 0.5 mcg/kg/h and on Nimbex at 3 mcg/kg/m. Off norepinephrine, remains on IV fluid 0.9 normal saline at 50 mL per hour.remains on enteral feeding.labs and chest x-ray were reviewed.chest x-ray continues to show patchy bilateral interstitial infiltrates Reevaluated today on 02/01/20, patient remains in the ICU, intubated and mechanically ventilated. His ventilator settings are assist control rate of 30 tidal volume is 450 FiO2 is 40% and I increased to 45%. PEEP is at 8. Patient remains on fentanyl 0.5 Nimbex at 3 g and propofol at 60 mcg/kg/m. Chest x-ray continues to show patchy bilateral infiltrates, not much of a significant change since yesterday. ABG showed a pO2 of 63 pCO2 of 63 pH of 7.37, hence FiO2 was increased to 40% and The same at 8. CBC is relatively normal. Lymphocytes remain low however. Platelets are normal. D-dimer is 1.40. Basic metabolic profile is normal. LDH is improving, down to 693 from as high as over 2000. C- reactive protein is down from 201 now it is 42.7, steadily improving. Hence considering the improvement, and considering the patient has less O2 requirement, I would likely hold Nimbex today, assess the patient off Nimbex and decide whether we could further wean or hold sedation and give the patient any weaning trial possibly today or in the next 24 hours. The patient is seen today 02/16/2020 in follow-up in the intensive care unit. He remains intubated on the mechanical ventilator. Currently in VC plus mode with a tidal volume 450 expiratory time 1.0. Rate of 24. FiO2 40% and a PEEP of 5. Morning blood gases reveal a P O2 of 64, pCO2 39, pH 7.46. He remains sedated on propofol currently at 40 mcg/kg/m. Fentanyl at 1.5 mcg/kg per hour. Cleviprex at 1 mg per hour. Being nourished with vital HP at 43 ML's which is go al. Yesterday he tolerated pressure support of 8 and a CPAP of 5 for approximately 3 hours. He was given additional sedation holiday today with a pressure support of 12 and CPAP of 5. Unfortunately the patient developed significant tachycardia, hypertension and tachypnea. This all occurred with a daily interruption of sedation and prior to even obtaining any breathing trials today. He has been quite sedate and significantly weak and unable to follow simple commands. Suspect critical illness polyneuropathy. He had previously failed extubation and has been reintubated since 02/10/2020. Blood cultures are positive for Enterococcus faecalis. Catheter tip and urine cultures were negative. White count 5.1. Hemoglobin 11.1. Platelets 204. Sodium 136. Potassium 3.8. Bicarb 28. Creatinine 0.62. Ferritin 144. LDH 645. C- reactive protein less than 5. He remains on Unasyn. Chest x-ray continues to show extensive subcutaneous emphysema and bibasilar airspace disease, stable co mpared to yesterday. Reevaluated today on 02/17/20, patient remains in the intensive care unit, intu bated and mechanically ventilated. Yesterday patient failed any attempts for weaning trial. However we will address again today by placing the patient on pressure support of 12 and CPAP. In the meantime the patient remains on mechanical ventilation, his tidal volume is 480 assist control rate of 24 FiO2 is 40% and PEEP is 5. ABG showed a pO2 of 81 pCO2 of 37 pH of 7.43. Remains on fentanyl at 1.5 mcg/kg/m and on the prevent at 40 mcg/kg/m. Chest x-ray continues to show bilateral interstitial infiltrates secondary to Covid 19 pneumonitis. Today I have given the patient a dose of Lasix. And we have recommended increasing Lovenox 80 mg subcu twice a day. I have also raised the concern about possibly giving the patient convalescent plasma if available. In the meantime I would also hold all narcotics and sedatives, and give the patient weaning trial if possible today. Although I am not very confident that the patient will do well, but at least we'll give the patient a trial of weaning if possible. CBC is relatively normal, basic metabolic profile is relatively normal, inflammatory markers were noted, LDH is down to 552 C-reactive protein is less than 5 and ferritin is 147. All are good indicators that the patient is improving. Patient was seen by surgery yesterday, and repeat coronavirus PCR came back positive again they were asked to see him for possible tracheostomy. However now that the PCR remains positive, we'll discuss with surgery plans for tracheostomy. And PEG tube placement. Blood cultures from the were positive for Enterococcus faecalis. Patient is still on Unasyn. Reevaluated today on 02/18/20. Patient remains in the ICU, failed multiple att empts over the last few days of weaning utilizing pressure support and CPAP. Went on the pressure support as high as 12, patient wouldn't last long before he gets tired out, tachypneic, tachycardic, and I have recommended tracheostomy and PEG tube placement. This will likely be done today by Dr. Tracy. Presently the patient is on mechanical ventilation with assist control rate of 480, patien t is on volume control plus, he is also on FiO2 is 40% and PEEP of 5 rate is 24. ABG showed a pO2 68 E. CO2 of 35 pH of 7.48 Remains on fentanyl at 0.75 mcg/kg/h and on propofol at 50 mcg/kg/m. Patient did receive diuretics, however blood pressure went admitted to the low side, and I recommended fluid boluses again 500 mL at a time. Chest x-ray is showing minimal improvement in his bilateral interstitial infiltrates. Inflammatory markers are improving. C- reactive protein is down to less than 5 LDH is down to 516 and ferritin is down to 153. 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 Hence tracheostomy, PEG tube placement, eventual PICC line placement, and placement should be appropriate. Reevaluated today on 02/19/20, patient remains in the ICU, he is status post tracheostomy, postoperative day #1. He also had a PEG tube placed. This was done yesterday by Dr. Tracy. Patient remains on assist control rate of 24, tidal volume is 480 FiO2 is 40% and PEEP is 5. ABG today showed a pO2 of 79 pCO2 of 36 pH of 7.46. Patient is on propofol at 50 mcg/kg/m, fentanyl at 0.5 mcg/kg/h IV fluid 0.9 D5 at 50 ML per hour. Today will likely start tube feeding. And today I plan to hold sedation, addressed mental status, and seriously consider pressure support of 8 and CPAP. Chest x-ray is basically the same continues to show bilateral interstitial infiltrates. Last Covid testing was positive, may consider convalescent plasma transfusion for this patient if we could get it. And I will discuss this issue with his daughter for consent. CBC is relatively normal. Basic metabolic profile is normal except for slightly low sodium of 131. Covid 19 inflammatory markers are trending down. Reevaluated today on 02/20/20. Patient remains in the ICU. He tolerated pressure support and CPAP yesterday for almost 6 hours. He was later switched to assist control mode of mechanical ventilation, and he is presently on assist control rate of 24 tidal volume 480 FiO2 40% and PEEP of 5. ABG showed a pO2 of 80 pCO2 of 39 pH of 7.44. Patient is on minimal fentanyl, and I plan to discontinue the fentanyl, and I plan to place the patient back again on pressure support of 8 and CPAP as long as tolerated. May eventually switch the patient to a trach collar. Patient is awake, follows simple instructions, however he is profoundly weak, and clearly has a picture of critical illness polyneuropathy. He is mentally appropriate, follows simple instructions. But again profound weakness is noted. Today I plan to arrange for a central line removed and placement of a PICC line. Eventually we have to start addressing the issue of possible transfer to [facility]. Patient is hemodynamically stable. Last night he had episodes of hypotension and bradycardia even when he was on norepinephrine for a short Time he was developing more bradycardic episodes. Presently in sinus rhythm, asymptomatic, off all pressors, and again I plan to try the patient on pressure support of 8 and CPAP. I also plan to arrange for PICC line on this patient. And discontinue his central line. 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 His inflammatory markers however have been gradually improving. Objective - Vital Signs Vital signs: Vital Signs Temp 98.4 F 02/20/20 12:00 Pulse 72 02/20/20 12:00 Resp 12 02/20/20 12:00 BP 174/88 02/20/20 12:00 Pulse Ox 97 02/20/20 12:00 Intake & Output 02/19/20 02/20/20 02/20/20 18:59 06:59 18:59 Intake Total 7172.203 2232.475 685.985 Output Total 1410 820 735 Balance -139.474 857.475 -49.015 Weight 97.4 kg 100.2 kg Intake: IV 686 452 170 Ampicillin-Sulbactam 3 gm 200 200 100 In Sodium Chloride 0.9% 100 ml @ 200 mls/hr IVPB Q6H [facility] Rx#:[id number] Dextrose 5%-0.9% NaCl 1, 350 000 ml @ 50 mls/hr IV . Q20H [facility] Rx#:[id number] Normal Saline Pressure 36 12 Bag Sodium Chloride 0.9% 1, 100 240 70 000 ml @ 20 mls/hr IV . Q24H [facility] Rx#:[id number] Intake, IV Titration 266.526 367.475 119.985 Amount Dextrose 5%-0.9% NaCl 1, 50 000 ml @ 50 mls/hr IV . Q20H [facility] Rx#:[id number] Magnesium Sulfate-D5w Pmx 100 1 gm In Dextrose/Water 1 100ml.bag @ 100 mls/hr IVPB ONCE ONE Rx#: [id number] Norepinephrine 4 mg In 19.879 Sodium Chloride 0.9% 250 ml @ 0.05 MCG/KG/MIN 18. 993 mls/hr IV .[id number] [facility] Rx#:[id number] Propofol 1,000 mg In 159.213 247.596 Empty Bag 1 bag @ Titrate IV .Q0M [facility] Rx#: [id number] fentaNYL (PF) 2,500 mcg 57.313 119.985 In Sodium Chloride 0.9% 200 ml @ 1.5 MCG/KG/HR 15 .69 mls/hr IV .[id number] [facility] Rx#:[id number] Tube Feeding 288 768 336 Other 30 90 60 Output: Urine 1410 820 735 Other: Voiding Method Indwelling Catheter Indwelling Catheter ABP, PAP, CO, CI - Last Documented Arterial Blood Pressure 94/51 - Exam GENERAL EXAM: Alert, very pleasant, 64-year-old white male, on mechanical ventilation, arousable, follows simple instructions, generally weak.. HEENT: PERRLA, EOMI, moist mucous membranes, tracheostomy is intact. CHEST: No chest wall deformity. Symmetrical expansion. LUNGS: Minimal crackles at the bases no rhonchi and no wheezes. CVS: Regular rate and rhythm, normal S1 and S2, no gallops, no murmurs, no rubs ABDOMEN: Soft, nontender. No hepatosplenomegaly, normal bowel sounds, no guarding or rigidity. PEG tube is intact EXTREMITIES: No clubbing, no edema, no cyanosis, 2+ pulses and upper and lower extremities. MUSCULOSKELETAL: Muscle tone normal. SKIN: No rashes CENTRAL NERVOUS SYSTEM: Arousable, follows simple instructions, seems to be appropriate, however profound weakness is noted. And this is again correlates with critical illness polyneuropathy picture. PSYCHIATRIC: Could not be assessed - Labs CBC & Chem 7: 02/20/20 05:33 02/20/20 05:33 Labs: Abnormal Lab Results - Last 24 Hours (Table) 02/19/20 02/19/20 02/19/20 Range/Units 17:25 23:40 23:51 RBC (4.30-5.90) m/uL Hgb (13.0-17.5) gm/dL Hct (39.0-53.0) % RDW (11.5-15.5) % Lymphocytes # (1.0-4.8) k/uL ABG pO2 (83-108) mmHg ABG HCO3 (21-25) mmol/L ABG Total CO2 26 H (19-24) mmol/L ABG O2 Saturation 97.4 H (94-97) % Sodium (137-145) mmol/L Potassium (3.5-5.1) mmol/L Creatinine (0.66-1.25) mg/dL Glucose (74-99) mg/dL POC Glucose (mg/dL) 114 H 106 H (75-99) mg/dL Calcium (8.4-10.2) mg/dL Total Protein (6.3-8.2) g/dL Albumin (3.5-5.0) g/dL 02/20/20 02/20/20 02/20/20 Range/Units 05:33 05:33 07:38 RBC 3.63 L (4.30-5.90) m/uL Hgb 11.2 L (13.0-17.5) gm/dL Hct 35.6 L (39.0-53.0) % RDW 19.3 H (11.5-15.5) % Lymphocytes # 0.7 L (1.0-4.8) k/uL ABG pO2 80 L (83-108) mmHg ABG HCO3 27 H (21-25) mmol/L ABG Total CO2 28 H (19-24) mmol/L ABG O2 Saturation (94-97) % Sodium 135 L (137-145) mmol/L Potassium 3.4 L (3.5-5.1) mmol/L Creatinine 0.54 L (0.66-1.25) mg/dL Glucose 104 H (74-99) mg/dL POC Glucose (mg/dL) (75-99) mg/dL Calcium 8.2 L (8.4-10.2) mg/dL Total Protein 4.5 L (6.3-8.2) g/dL Albumin 2.3 L (3.5-5.0) g/dL 02/20/20 Range/Units 11:57 RBC (4.30-5.90) m/uL Hgb (13.0-17.5) gm/dL Hct (39.0-53.0) % RDW (11.5-15.5) % Lymphocytes # (1.0-4.8) k/uL ABG pO2 (83-108) mmHg ABG HCO3 (21-25) mmol/L ABG Total CO2 (19-24) mmol/L ABG O2 Saturation (94-97) % Sodium (137-145) mmol/L Potassium (3.5-5.1) mmol/L Creatinine (0.66-1.25) mg/dL Glucose (74-99) mg/dL POC Glucose (mg/dL) 119 H (75-99) mg/dL Calcium (8.4-10.2) mg/dL Total Protein (6.3-8.2) g/dL Albumin (3.5-5.0) g/dL Microbiology - Last 24 Hours (Table) 02/13/20 16:05 Blood Culture - Final Blood No Growth after 144 hours Assessment and Plan Assessment: acute covid 19 pneumonitis. acute hypoxic respiratory failure secondary to above. Patient was extubated earlier last week, however he failed extubation and he had to be reintubated on 02/09. And remains intubated since then. Patient underwent tracheostomy on 02/18/20, and that is mostly because of failure to wean. Patient also underwent PEG tube placement and being used presently for enteral feeding. Acute sepsis secondary to Enterococcus faecalis bacteremia. Suspect critical illness polyneuropathy/myopathy. Main contributing factor to failure to wean Acute hypercapnic respiratory failure secondary to severe pneumonitis secondary to covid 19. diarrhea due to GI manifestation of Covid 19 infection, resolved. Status post tracheostomy and PEG tube placement, postoperative day #1. Recommendation: Try patient again on weaning mode of pressure support and CPAP. Arrange for a PICC line and possibly discontinue central line. Enteral feeding. Via PEG tube. Continue Unasyn for Enterococcus faecalis bacteremia and sepsis. Continue GI and DVT prophylaxis. Continue Lovenox. Continue bronchodilators and low-dose steroids. Patient is on prednisone 30 mg by mouth daily We'll continue to follow. Critical care time is 32 minutes. Time with Patient: Greater than 30
--- NOTE | 2020-02-20 12:52 | IR ---
PICC LINE PLACEMENT: HISTORY: Infection requiring long-term antibiotic therapy PROCEDURE: Ultrasound guidance of PICC line placement. SKEIN BANDER: Dr. Nguyen. COMPLICATIONS: None ANESTHESIA: 1. 1% Lidocaine locally. FINDINGS/TECHNIQUE: The procedure was explained to the patient. The risks, complications, benefits and alternatives were discussed and any questions were answered. Informed consent was obtained. The patient was placed supine on the fluoroscopic table and prepped and draped in the usual sterile fas ion. Utilizing a 21 gauge needle and sonographic guidance, access in the left basilic vein was achi eved and there is placement of a 0.018 guidewire. The vein is patent. A 5-F. sheath was placed over the guidewire. The guidewire and dilator were removed and a 5-F. Double lumen PICC line was placed through the sheath with the chest x-ray confirming the tip at the level of the SVC. The sheath was r emoved, the catheter was flushed and sutured into position. The patient was stable throughout the pr ocedure and remained stable upon discharge from the Department of Radiology. The vein puncture was patent under ultrasound. A beltre scale image was obtained to document patency of the vein punctured. All elements of the maximal barrier technique were utilized. IMPRESSION: 1. Successful PICC line placement under ultrasound performed bedside within the ICU.
[2020-02-20] MEDS: FLUCONAZOLE 100 MG TAB NG-TUBE SCH (15:52)
[2020-02-20 16:33] LABS: African American GFR (CKD) >90 (>60 ml/min/1.73 sqM); Anion Gap 2 mmol/L; Blood Urea Nitrogen 12 mg/dL (9-20); Calcium 8.2 mg/dL (8.4-10.2); Carbon Dioxide 29 mmol/L (22-30); Chloride 105 mmol/L (98-107); Glucose 131 mg/dL (74-99); Non-African American GFR(CKD) >90 (>60 ml/min/1.73 sqM); Potassium 3.7 mmol/L (3.5-5.1); Sodium 136 mmol/L (137-145)
[2020-02-20] MEDS ORDERED: POTASSIUM BICARBONATE/CIT AC 20 MEQ TABLET.EFF NG-TUBE SCH (18:00)
[2020-02-20 18:21] LABS: Glucose,Whole Blood 126 mg/dL (75-99)
[2020-02-20] MEDS: CHOLESTYRAMINE (WITH SUGAR) 4 GM PACKET PO SCH (18:24)
--- NOTE | 2020-02-20 20:32 | P.PN ---
Subjective Progress Note Date: 02/20/20 (delayed charting wesley seen at 1245) Principal diagnosis: Diarrhea Patient is a 64-year-old male with rheumatoid arthritis on methotrexate therapy and prior tobacco abuse who was transferred here during the COVID relief process from [facility]. Initially on transfer here he is on have acute hypoxic respiratory failure with bilateral pneumonia typical of coronavirus, acute kidney injury and ATN, mild hyponatremia, and hypokalemia. He was also found to have COVID gastroenteritis. At that point in time he was started on plaquenil, rocephin, and doxycycline. Pulmonary was consulted and he was started on solumedrol, and he was started on high flow at 10L. Prolonged hospital course. My first evaluation on 02/20/2020. Patient seen and examined at bedside. He is currently CPAP being and is status post trach and PEG. He denies any chest pain, pain anywhere, or shortness of breath. Objective - Vital Signs Vital signs: Vital Signs Temp 99 F 02/20/20 16:00 Pulse 68 02/20/20 18:00 Resp 20 02/20/20 18:00 BP 153/90 02/20/20 18:00 Pulse Ox 97 02/20/20 18:00 Intake & Output 02/20/20 02/20/20 02/21/20 06:59 18:59 06:59 Intake Total 9336.144 7427.985 Output Total 820 2410 Balance 857.475 -1150.015 Weight 100.2 kg Intake: IV 452 330 Ampicillin-Sulbactam 3 gm 200 200 In Sodium Chloride 0.9% 100 ml @ 200 mls/hr IVPB Q6H [facility] Rx#:[id number] Normal Saline Pressure 12 Bag Sodium Chloride 0.9% 1, 240 130 000 ml @ 20 mls/hr IV . Q24H [facility] Rx#:[id number] Intake, IV Titration 367.475 119.985 Amount Magnesium Sulfate-D5w Pmx 100 1 gm In Dextrose/Water 1 100ml.bag @ 100 mls/hr IVPB ONCE ONE Rx#: [id number] Norepinephrine 4 mg In 19.879 Sodium Chloride 0.9% 250 ml @ 0.05 MCG/KG/MIN 18. 993 mls/hr IV .[id number] [facility] Rx#:[id number] Propofol 1,000 mg In 247.596 Empty Bag 1 bag @ Titrate IV .Q0M [facility] Rx#: [id number] fentaNYL (PF) 2,500 mcg 119.985 In Sodium Chloride 0.9% 200 ml @ 1.5 MCG/KG/HR 15 .69 mls/hr IV .[id number] [facility] Rx#:[id number] Tube Feeding 768 720 Other 90 90 Output: Urine 820 1410 Stool 1000 Other: Voiding Method Indwelling Catheter Indwelling Catheter ABP, PAP, CO, CI - Last Documented Arterial Blood Pressure 94/51 - Exam General: ill appearing , no distress, appears at stated age Derm: warm, dry Head: atraumatic, normocephalic, symmetric Eyes: EOMI, no lid lag, anicteric sclera Mouth: no lip lesion, mucus membranes moist Cardiovascular: S1S2 reg, no murmur, positive posterior tibial pulse bilateral, Lungs: course bs bilateral, no rhonchi, no rales , no accessory muscle use Abdominal: soft, nontender to palpation, no guarding, no appreciable organomegaly + peg tube in place no drainage Ext: no gross muscle atrophy, trace edema, no contractures Neuro: CN II-XI grossly intact, no focal neuro deficits Psych: Alert, oriented, appropriate affect - Labs CBC & Chem 7: 02/20/20 05:33 02/20/20 15:55 Labs: Abnormal Lab Results - Last 24 Hours (Table) 02/19/20 02/19/20 02/19/20 Range/Units 17:25 23:40 23:51 RBC (4.30-5.90) m/uL Hgb (13.0-17.5) gm/dL Hct (39.0-53.0) % RDW (11.5-15.5) % Lymphocytes # (1.0-4.8) k/uL ABG pO2 (83-108) mmHg ABG HCO3 (21-25) mmol/L ABG Total CO2 26 H (19-24) mmol/L ABG O2 Saturation 97.4 H (94-97) % Sodium (137-145) mmol/L Potassium (3.5-5.1) mmol/L Creatinine (0.66-1.25) mg/dL Glucose (74-99) mg/dL POC Glucose (mg/dL) 114 H 106 H (75-99) mg/dL Calcium (8.4-10.2) mg/dL Total Protein (6.3-8.2) g/dL Albumin (3.5-5.0) g/dL 02/20/20 02/20/20 02/20/20 Range/Units 05:33 05:33 07:38 RBC 3.63 L (4.30-5.90) m/uL Hgb 11.2 L (13.0-17.5) gm/dL Hct 35.6 L (39.0-53.0) % RDW 19.3 H (11.5-15.5) % Lymphocytes # 0.7 L (1.0-4.8) k/uL ABG pO2 80 L (83-108) mmHg ABG HCO3 27 H (21-25) mmol/L ABG Total CO2 28 H (19-24) mmol/L ABG O2 Saturation (94-97) % Sodium 135 L (137-145) mmol/L Potassium 3.4 L (3.5-5.1) mmol/L Creatinine 0.54 L (0.66-1.25) mg/dL Glucose 104 H (74-99) mg/dL POC Glucose (mg/dL) (75-99) mg/dL Calcium 8.2 L (8.4-10.2) mg/dL Total Protein 4.5 L (6.3-8.2) g/dL Albumin 2.3 L (3.5-5.0) g/dL 02/20/20 02/20/20 02/20/20 Range/Units 11:57 15:55 18:11 RBC (4.30-5.90) m/uL Hgb (13.0-17.5) gm/dL Hct (39.0-53.0) % RDW (11.5-15.5) % Lymphocytes # (1.0-4.8) k/uL ABG pO2 (83-108) mmHg ABG HCO3 (21-25) mmol/L ABG Total CO2 (19-24) mmol/L ABG O2 Saturation (94-97) % Sodium 136 L (137-145) mmol/L Potassium (3.5-5.1) mmol/L Creatinine 0.45 L (0.66-1.25) mg/dL Glucose 131 H (74-99) mg/dL POC Glucose (mg/dL) 119 H 126 H (75-99) mg/dL Calcium 8.2 L (8.4-10.2) mg/dL Total Protein (6.3-8.2) g/dL Albumin (3.5-5.0) g/dL Microbiology - Last 24 Hours (Table) 02/13/20 16:05 Blood Culture - Final Blood No Growth after 144 hours Assessment and Plan Assessment: COVID 19 pneumonitis with acute hypoxic respiratory failure and gastroenteritis with resultant critical illness myopathy, possible yudy pneumonia -Status post trach and PEG -Critical care recommendations -Patient currently on CPAP weaning trial -Continue with tube feeds -Status IL 6 -Unasyn, Diflucan Entercoccus bacteremia -Repeat blood cultures negative to date -Continue with Unasyn Sinus bradycardia -Cardiology recommendations appreciated -Suspected vagal response Paroxysmal atrial fibrillation with rapid ventricular response Hypoglycemia, resolved Rheumatoid arthritis with immunosuppression DVT prophylaxis: Lovenox Discussed with: patient, nursing Anticipated discharge: 4-[address]: [facility] A total of 35 minutes was spent on the care of this complex patient more than 5 0% of the time was spent in counseling and care coordination.
[2020-02-20] MEDS: fentaNYL (PF) 2,500 MCG in SODIUM CHLORIDE 0.9% 200 ML IV SCH (20:55)
--- NOTE | 2020-02-20 22:57 | PN ---
PROGRESS NOTE DATE OF SERVICE: 02/20/2020 REASON FOR FOLLOWUP: Pneumonia and bacteremia. INTERVAL HISTORY: The patient is currently afebrile. The patient is hemodynamically stable, not on pressor support. FiO2 is currently at 40%, doing well on a CPAP trial. Still having diarrhea but no worsening reported by the nursing staff. PHYSICAL EXAMINATION: Blood pressure is 153/90 with a pulse of 68, temperature of 98. He is 97% on 40% FiO2. General description is a middle-aged male lying in bed in no distress. RESPIRATORY SYSTEM: Unlabored breathing. Coarse breath sounds bilaterally. No wheeze. HEART: S1, S2. Regular rate and rhythm. ABDOMEN: Soft. No tenderness. LABS: Patient's chest x-ray congestion. Hemoglobin is 11.2, white count 5.9, BUN of 12, creatinine 0.45. Blood culture repeat has been negative. DIAGNOSTIC IMPRESSION AND PLAN: Patient with Enterococcus faecalis bacteremia with a question of that has been discontinued, as urine was negative. Less likely abdominal source. Patient to continue Unasyn, plan for a total of 2 weeks of antibiotics from his negative blood culture and will monitor his clinical course closely. MMODL / IJN: [id number] /
[2020-02-21] MEDS: INSULIN ASPART (NovoLOG) 100 UNIT/ML VIAL SQ SCH ×4 (03:22→18:11)
[2020-02-21] MEDS: NOREPINEPHRINE 4 MG in SODIUM CHLORIDE 0.9% 250 ML IV SCH (03:23)
[2020-02-21] MEDS: AMPICILLIN-SULBACTAM 3 GM in SODIUM CHLORIDE 0.9% 100 ML IVPB SCH ×4 (04:00→21:51)
[2020-02-21 05:17] LABS: Anisocytosis Slight; Basophils % (A) 0 %; Eosinophils # (A) 0.4 k/uL (0-0.7); Eosinophils % (A) 4 %; HCT 36.5 % (39.0-53.0); HGB 11.8 gm/dL (13.0-17.5); Hypochromasia Slight; Lymphocytes # (A) 0.7 k/uL (1.0-4.8); Lymphocytes % (A) 6 %; MCH 31.1 pg (25.0-35.0); MCHC 32.2 g/dL (31.0-37.0); MCV 96.8 fL (80.0-100.0); Macrocytosis Slight; Mean Platelet Volume 7.8; Monocytes # (A) 0.5 k/uL (0-1.0); Monocytes % (A) 5 %; Neutrophils # (A) 8.9 k/uL (1.3-7.7); Neutrophils % (A) 83 %; Platelet Count 218 k/uL (150-450); RBC 3.77 m/uL (4.30-5.90); RDW 18.9 % (11.5-15.5); WBC 10.7 k/uL (3.8-10.6)
[2020-02-21 05:40] LABS: ALT 46 U/L (4-49); AST 27 U/L (17-59); African American GFR (CKD) >90 (>60 ml/min/1.73 sqM); Albumin 2.5 g/dL (3.5-5.0); Alkaline Phosphatase 86 U/L (38-126); Anion Gap 5 mmol/L; Blood Urea Nitrogen 11 mg/dL (9-20); Calcium 8.5 mg/dL (8.4-10.2); Carbon Dioxide 25 mmol/L (22-30); Chloride 104 mmol/L (98-107); Glucose 87 mg/dL (74-99); Non-African American GFR(CKD) >90 (>60 ml/min/1.73 sqM); Potassium 3.3 mmol/L (3.5-5.1); Sodium 134 mmol/L (137-145); Total Bilirubin 0.6 mg/dL (0.2-1.3); Total Protein 4.9 g/dL (6.3-8.2)
[2020-02-21 05:59] LABS: Glucose,Whole Blood 91 mg/dL (75-99)
[2020-02-21] MEDS: POTASSIUM CHLORIDE 20 MEQ in WATER FOR INJECTION 1 100ML.BAG IVPB SCH ×2 (06:20→08:52)
--- NOTE | 2020-02-21 06:42 | XR ---
EXAMINATION TYPE: XR chest 1V portable DATE OF EXAM: 02/21/2020 HISTORY: compare. REFERENCE: Previous study dated 02/20/2020. FINDINGS: There is a tracheostomy tube in place. Its tip overlies the tracheal air column in this sin gle frontal projection. A left basilic PICC line is in place. Its tip is in the superior vena cava. T he patient's left internal jugular line has been removed. There is interstitial change present bilaterally. This is not changed significantly from previous. Th ere is blunting of both angles. I could not exclude small effusions. The heart is not enlarged. IMPRESSION: INTERSTITIAL PROMINENCE, UNCHANGED FROM PREVIOUS WITHOUT CARDIOMEGALY OR VASCULAR CONGESTION LIKELY R EPRESENTS ATYPICAL PNEUMONIA.
[2020-02-21 07:32] LABS: ABG Base Excess 3.8 mmol/L; ABG HCO3 28 mmol/L (21-25); ABG Oxygen Saturation 97.8 % (94-97); ABG PCO2 39 mmHg (35-45); ABG PH 7.46 (7.35-7.45); ABG PO2 95 mmHg (83-108); ABG TCO2 29 mmol/L (19-24); Allen Test Performed? Yes
[2020-02-21] MEDS: PANTOPRAZOLE 40 MG/10 ML VIAL IVP SCH (08:50)
[2020-02-21] MEDS: predniSONE 10 MG TAB PO SCH (08:50)
[2020-02-21] MEDS: ASCORBIC ACID 500 MG TAB OG-TUBE SCH ×2 (08:50→21:52)
[2020-02-21] MEDS: CHLORHEXIDINE GLUCONATE 15 ML CUP MUCOUS MEM SCH ×2 (08:52→21:51)
[2020-02-21] MEDS: ENOXAPARIN 80 MG/0.8 ML SYRINGE SQ SCH ×2 (08:52→21:52)
[2020-02-21] MEDS: ZINC SULFATE 220 MG CAP PO SCH (08:53)
[2020-02-21] MEDS: CHOLESTYRAMINE (WITH SUGAR) 4 GM PACKET PO SCH ×2 (09:05→17:16)
--- NOTE | 2020-02-21 11:27 | P.PN ---
Subjective Progress Note Date: 02/21/20 Principal diagnosis: This is a 64-year-old gentleman with a history of rheumatoid arthritis who is transferred from [facility] for treatment of COVID 19. He was subsequently intubated requiring mechanical ventilator support due to his worsening respiratory failure. Subsequently, he was extubated last week and due to worsening respiratory effort he was reintubated and placed back on mechanical ventilator support. On 02/18/2020 due to failure of weaning from mechanical ventilation the patient underwent a tracheostomy and PEG tube. His bedside telemetry is currently showing normal sinus rhythm heart rate in the 80s, and he is on metoprolol 12.5 mg per his PEG tube when necessary heart rate greater than 90. According to his bedside nurse cardiology was consulted due to some episodes of bradycardia and hypotension while the patient was being turned. She reports she has had no further episodes of bradycardia since this event. He was seen and evaluated by Dr. Delaney yesterday 02/20/2020 who felt this was a vasovagal response. On 02/21/2020 the patient was seen and examined at his bedside in intensive care unit by Dr. Vega. The patient remains intubated with mechanical ventilator support and has been tolerating CPAP trials. Patient is more alert and following some simple commands. He is hemodynamically stable and is on no inotropic or pressure support. Bedside telemetry is showing normal sinus rhythm heart rate 80. No further episodes of bradycardia reported. Blood pressure is 152/79 and oxygen saturations with mechanical ventilator support are 97%. [facility]. Objective - Vital Signs Vital signs: Vital Signs Temp 98.1 F 02/21/20 04:00 Pulse 85 02/21/20 10:00 Resp 27 H 02/21/20 10:00 BP 152/79 02/21/20 10:00 Pulse Ox 97 02/21/20 10:00 Intake & Output 02/20/20 02/21/20 02/21/20 18:59 06:59 18:59 Intake Total 3835.695 0491.92 432 Output Total 2410 1275 550 Balance -1150.015 75.92 -118 Weight 96.6 kg Intake: IV 330 300 240 Ampicillin-Sulbactam 3 gm 200 200 100 In Sodium Chloride 0.9% 100 ml @ 200 mls/hr IVPB Q6H [facility] Rx#:[id number] Piperacillin-Tazobactam 3 100 .375 gm In Sodium Chloride 0.9% 100 ml @ 25 mls/hr IVPB Q8HR [facility] Rx# :[id number] Sodium Chloride 0.9% 1, 130 100 40 000 ml @ 20 mls/hr IV . Q24H [facility] Rx#:[id number] Intake, IV Titration 119.985 192.92 Amount Potassium Chloride 20 meq 100 In Water For Injection 1 100ml.bag @ 50 mls/hr IVPB Q2H [facility] Rx#: [id number] fentaNYL (PF) 2,500 mcg 119.985 92.92 In Sodium Chloride 0.9% 200 ml @ 1.5 MCG/KG/HR 15 .69 mls/hr IV .[id number] [facility] Rx#:[id number] Tube Feeding 720 768 192 Other 90 90 Output: Urine 1410 1275 550 Stool 1000 Other: Voiding Method Indwelling Catheter Indwelling Catheter ABP, PAP, CO, CI - Last Documented Arterial Blood Pressure 94/51 - Exam This is a 64-year-old gentleman who is COVID 19 positive, remains on mechanical ventilator support and is alert. Heis in no acute distress. He is hemodynamically stable and his oxygen saturations are 97%. Bedside telemetry showing normal sinus rhythm heart rate 80. - Constitutional General appearance: Present: cooperative, no acute distress - EENT Eyes: Present: PERRLA, normal appearance ENT: Present: hearing grossly normal - Neck Details: Trachea is midline, neck supple with some subcutaneous emphysema, no JVD. - Respiratory Details: Lung sounds essentially clear to his bilateral upper lobes, diminished to his bilateral bases with few scattered crackles. Respirations are symmetrical and nonlabored with mechanical ventilator support. - Cardiovascular Details: Regular rhythm and rate. S1 and S2 present, negative for S3, gallop or murmur. - Gastrointestinal Gastrointestinal Comment(s): Abdomen is soft, nontender and nondistended. PEG tube is intact, dressing is clean and dry. No guarding or rigidity. No organomegaly. - Genitourinary Genitourinary Comment(s): Hewitt catheter for accurate I&O. - Integumentary Integumentary Comment(s): Skin is warm and dry. No clubbing or cyanosis is present. No rashes. - Neurologic Neurologic: Present: CNII-XII intact - Musculoskeletal Musculoskeletal: Present: generalized weakness, strength equal bilaterally - Psychiatric Psychiatric Comment(s): Following simple commands appropriately. Psychiatric: Present: appropriate affect - Allied health notes Allied health notes reviewed: nursing - Labs CBC & Chem 7: 02/21/20 04:24 02/21/20 04:24 Labs: Abnormal Lab Results - Last 24 Hours (Table) 02/20/20 02/20/20 02/20/20 Range/Units 11:57 15:55 18:11 WBC (3.8-10.6) k/uL RBC (4.30-5.90) m/uL Hgb (13.0-17.5) gm/dL Hct (39.0-53.0) % RDW (11.5-15.5) % Neutrophils # (1.3-7.7) k/uL Lymphocytes # (1.0-4.8) k/uL ABG pH (7.35-7.45) ABG HCO3 (21-25) mmol/L ABG Total CO2 (19-24) mmol/L ABG O2 Saturation (94-97) % Sodium 136 L (137-145) mmol/L Potassium (3.5-5.1) mmol/L Creatinine 0.45 L (0.66-1.25) mg/dL Glucose 131 H (74-99) mg/dL POC Glucose (mg/dL) 119 H 126 H (75-99) mg/dL Calcium 8.2 L (8.4-10.2) mg/dL Total Protein (6.3-8.2) g/dL Albumin (3.5-5.0) g/dL 02/21/20 02/21/20 02/21/20 Range/Units 04:24 04:24 07:23 WBC 10.7 H (3.8-10.6) k/uL RBC 3.77 L (4.30-5.90) m/uL Hgb 11.8 L (13.0-17.5) gm/dL Hct 36.5 L (39.0-53.0) % RDW 18.9 H (11.5-15.5) % Neutrophils # 8.9 H (1.3-7.7) k/uL Lymphocytes # 0.7 L (1.0-4.8) k/uL ABG pH 7.46 H (7.35-7.45) ABG HCO3 28 H (21-25) mmol/L ABG Total CO2 29 H (19-24) mmol/L ABG O2 Saturation 97.8 H (94-97) % Sodium 134 L (137-145) mmol/L Potassium 3.3 L (3.5-5.1) mmol/L Creatinine 0.36 L (0.66-1.25) mg/dL Glucose (74-99) mg/dL POC Glucose (mg/dL) (75-99) mg/dL Calcium (8.4-10.2) mg/dL Total Protein 4.9 L (6.3-8.2) g/dL Albumin 2.5 L (3.5-5.0) g/dL - Imaging and Cardiology Chest x-ray: report reviewed, image reviewed Assessment and Plan Assessment: 1. Acute hypoxic respiratory failure requiring mechanical ventilation, status post tracheostomy 2. Covert 19 pneumonia 3. Sinus bradycardia with hypotension, likely vagal response 4. Acute sepsis secondary to enterococcus faecalis bacteremia, remains on antibiotics 5. Status post PEG tube placement 6. History of rheumatoid arthritis Plan: 1. There has been no further episodes of bradycardia, we will continue to fo llow the patient on an as-needed basis. 2. Continue the beta blockers on a when necessary basis. Nurse practitioner note has been reviewed, I agree with a documented findings and plan of care. Patient was seen and examined. Time with Patient: Less than 30
[2020-02-21] MEDS: fentaNYL (PF) 2,500 MCG in SODIUM CHLORIDE 0.9% 200 ML IV SCH (11:40)
[2020-02-21] MEDS: CLEVIDIPINE BUTYRATE 25 MG in EMPTY BAG 1 BAG IV SCH (11:40)
[2020-02-21 11:58] VITALS: BMI 28.8
[2020-02-21 12:15] LABS: Glucose,Whole Blood 104 mg/dL (75-99)
--- NOTE | 2020-02-21 13:01 | P.PN ---
Subjective Progress Note Date: 02/21/20 Principal diagnosis: acute covid 19 pneumonitis was asked to evaluate this patient who is a 64-year-old male who has been diagnosed having acute covid 19 pneumonia and the patient has been progressively becoming hypoxic as the patient was on few liters about 2 by nasal cannula and subsequently dioxin fluids and she is up to 6 L and then 8 L and currently is on 10 L of oxygen by nasal cannula. The decompensation of worsening the oxygenation has occurred over the past 24 hours. At this point in time the patient is having difficulty breathing which is mild. He has a dry cough. He is sleeping in a prone body position. Seems to be making him more comfortable. While on 10 L of oxygen, is pulse oxing around 96%. His heart rate is at 59. BP is 111/67. He was having on and off low-grade fever throughout the hospitalization and his last temperature spike was 100.3 from 01/24/2020 at 8:00 in the evening. He was given doxycycline Rocephin and Plaquenil. He was placed on zinc sulfate and I also added IV Solu-Medrol 40 mg every 12 hours. The patient had a chest x-ray showing worsening bilateral pulmonary infiltrates and pneumonia compared to the original chest x-ray that was done on 01/23/2020. The blood gas today that was done on a 65% FiO2 showed a pH of 7.46 with a pCO2 of 26 and pO2 of 63 consistent with hypoxemia and respiratory alkalosis. White cell count was suppressed at 3.1. The patient has lymphopenia with a lymphocyte count of 0.2. The patient had a pro-calcitonin level of 0.17. LDH level was 1067 at a time of admission and hasn't been rechecked.. This patient got chest her dose from [facility]. He reported diarrhea around 3 weeks ago and his been having progressive shortness of breath over the past 2-3 weeks. He denies having any body aches. He is extensively fatigued. He was in [place] for spring. He has history of rheumatoid arthritis and the patient has been taking methotrexate for many years regarding his RA On 01/26/2020 patient seen in follow-up on medical surgical floor. Is currently on 11 L per high flow oxygen, his pulse ox is 93%, he is been afebrile, hemodynamically patient is stable, non-tachycardic. Yesterday's chest x-ray has been reviewed showing worsening bilateral pneumonias, patient is on combination of doxycycline, Rocephin, hydroxy chloroquine, and IV Solu-Medrol 40 mg every 12 hours, patient is on zinc 220 mg daily, and Ventolin inhaler. Still dyspnea, but no acute distress. Follow-up labs have been reviewed today, white blood cell count is up to 5.9, hemoglobin is 12.8, sodium is 138, potassium is 3.3, yesterday's LDH was trending up, and CRP was also trending up. Pro-calcitonin was in the intermediate range of 0.17. Lung sounds reveal crackles at bilateral bases. He states although she is still short of breath he overall feels somewhat better. On 01/27/2020 patient seen in follow-up on medical surgical floor. Patient is awake and alert, his oxygenation demand did increase overnight, he is currently on 13 L per high flow nasal cannula, he is satting about 93%, however he appears to be in no acute distress, mildly dyspneic, still has a dry cough, lung sounds reveal some crackles in bilateral lungs, no rhonchi or wheezing, patient is positive for Covid 19 infection, and she remains on a regime of hydroxychloroquine, IV Solu-Medrol, Rocephin and doxycycline. Afebrile. Today's chest x-ray has been reviewed showing persistent diffuse interstitial infiltrates, improved lung volumes with some improvement in aeration of the lung bases. Continue current medical treatment, today's labs have been reviewed, d- dimer is up to 1.44, no leukocytosis, hemoglobin is 12.1, sodium is 137, potassium 3.3, chloride is 109, CO2 is 20, B1 is 14 creatinine 0.70, LDH slightly trended up to 1728, CK is 29, CRP has significantly improved and is down to 49 On 01/28/2020 patient seen in follow-up on general medical floor. He is Covid 19 positive, FiO2 is down to 11 L on today's exam, from 13 L on yesterday's exam, his pulse ox is 92%. We will to be in any acute distress, breathing is comfortable, lung sounds reveal some minimal crackles at bilateral bases, patient remains on Rocephin, azithromycin has been discontinued, and he has completed a course of Plaquenil. Afebrile in the last 24 hours. Patient was reevaluated today on 01/29/20, he was seen on the regular medical floor, and he is on high flow nasal cannula at 13 L/m, O2 saturation is marginal anywhere between 90-94% at best patient has shortness of breath, but does not seem to be in distress. He is breathing very comfortably. His chest x-ray showed slight worsening. Crackles at the bases bilaterally noted. After evaluating the patient, and considering that his O2 saturation has been fluctuating between 84 and 95%, I recommended observing the patient in the ICU, and I transferred the patient to the ICU. ABG on high flow nasal cannula showed a pO2 of 64 he CO2 of 31 pH of 7.52. His d-dimer is 2.30. CBC is normal basic metabolic profile is normal however his LDH is 6. C-reactive protein is 47. Reevaluated today on 01/30/20, patient was transferred yesterday to the intensive care unit, and around midnight, patient desaturated significantly, and we could not maintain his O2 saturation in the 90s. Patient was also noted by the nurse taking care of him to become more tachypneic, and he was using more and more of his accessory muscles. I was notified about the patient, and I recommended immediate intubation. Patient is now on mechanical ventilation, his ventilatory settings are assist control rate of 20 and this was increased to 26. His tidal volume was 450 assist-control rate FiO2 of 60% which was cut down to 50%, and PEEP was at 5 however I increased the PEEP to 10 today. I increased the flow rate to 70 L/m. Patient seems to be clinically dry, hence I recommended a liter of IV fluid in the form of 0.9 normal saline. I have also recommended that he remains on propofol at 50 fentanyl at 0.25 mcg/kg/h, and he is on Nimbex. Chest x-ray clearly shows evidence of diffuse interstitial infiltrates consistent with covid 19 pneumonitis. ABG this morning showed a pO2 of 116 pCO2 of 88 pH of 7.13, hence adjustment was made on his ventilatory settings. And rate was increased. PEEP was increased. And FiO2 was brought down to 50%. LDH today is 1827. And C-reactive protein is 47.4. Patient was reevaluated today on 01/31/20, remains intubated and mechanically ventilated. Patient is on assist control rate of 26 tidal volume is 450 FiO2 is 40% and PEEP is 10 however I cut it down to 8 today. And increased his rate to 30. Kept him on the same tidal volume of 4.50. The reason I made the change was because of his ABG showing pO2 of 116 pCO2 of 67 and pH of 7.27. His inflammatory markers are trending down. C-reactive protein is 44. Peak airway pressure is 26, plateau pressure is 21. Patient remains on propofol at 3 0 mcg/kg/m, fentanyl at 0.5 mcg/kg/h and on Nimbex at 3 mcg/kg/m. Off norepinephrine, remains on IV fluid 0.9 normal saline at 50 mL per hour.remains on enteral feeding.labs and chest x-ray were reviewed.chest x-ray continues to show patchy bilateral interstitial infiltrates Reevaluated today on 02/01/20, patient remains in the ICU, intubated and mechanically ventilated. His ventilator settings are assist control rate of 30 tidal volume is 450 FiO2 is 40% and I increased to 45%. PEEP is at 8. Patient remains on fentanyl 0.5 Nimbex at 3 g and propofol at 60 mcg/kg/m. Chest x-ray continues to show patchy bilateral infiltrates, not much of a significant change since yesterday. ABG showed a pO2 of 63 pCO2 of 63 pH of 7.37, hence FiO2 was increased to 40% and The same at 8. CBC is relatively normal. Lymphocytes remain low however. Platelets are normal. D-dimer is 1.40. Basic metabolic profile is normal. LDH is improving, down to 693 from as high as over 2000. C- reactive protein is down from 201 now it is 42.7, steadily improving. Hence considering the improvement, and considering the patient has less O2 requirement, I would likely hold Nimbex today, assess the patient off Nimbex and decide whether we could further wean or hold sedation and give the patient any weaning trial possibly today or in the next 24 hours. The patient is seen today 02/16/2020 in follow-up in the intensive care unit. He remains intubated on the mechanical ventilator. Currently in VC plus mode with a tidal volume 450 expiratory time 1.0. Rate of 24. FiO2 40% and a PEEP of 5. Morning blood gases reveal a P O2 of 64, pCO2 39, pH 7.46. He remains sedated on propofol currently at 40 mcg/kg/m. Fentanyl at 1.5 mcg/kg per hour. Cleviprex at 1 mg per hour. Being nourished with vital HP at 43 ML's which is go al. Yesterday he tolerated pressure support of 8 and a CPAP of 5 for approximately 3 hours. He was given additional sedation holiday today with a pressure support of 12 and CPAP of 5. Unfortunately the patient developed significant tachycardia, hypertension and tachypnea. This all occurred with a daily interruption of sedation and prior to even obtaining any breathing trials today. He has been quite sedate and significantly weak and unable to follow simple commands. Suspect critical illness polyneuropathy. He had previously failed extubation and has been reintubated since 02/10/2020. Blood cultures are positive for Enterococcus faecalis. Catheter tip and urine cultures were negative. White count 5.1. Hemoglobin 11.1. Platelets 204. Sodium 136. Potassium 3.8. Bicarb 28. Creatinine 0.62. Ferritin 144. LDH 645. C- reactive protein less than 5. He remains on Unasyn. Chest x-ray continues to show extensive subcutaneous emphysema and bibasilar airspace disease, stable co mpared to yesterday. Reevaluated today on 02/17/20, patient remains in the intensive care unit, intu bated and mechanically ventilated. Yesterday patient failed any attempts for weaning trial. However we will address again today by placing the patient on pressure support of 12 and CPAP. In the meantime the patient remains on mechanical ventilation, his tidal volume is 480 assist control rate of 24 FiO2 is 40% and PEEP is 5. ABG showed a pO2 of 81 pCO2 of 37 pH of 7.43. Remains on fentanyl at 1.5 mcg/kg/m and on the prevent at 40 mcg/kg/m. Chest x-ray continues to show bilateral interstitial infiltrates secondary to Covid 19 pneumonitis. Today I have given the patient a dose of Lasix. And we have recommended increasing Lovenox 80 mg subcu twice a day. I have also raised the concern about possibly giving the patient convalescent plasma if available. In the meantime I would also hold all narcotics and sedatives, and give the patient weaning trial if possible today. Although I am not very confident that the patient will do well, but at least we'll give the patient a trial of weaning if possible. CBC is relatively normal, basic metabolic profile is relatively normal, inflammatory markers were noted, LDH is down to 552 C-reactive protein is less than 5 and ferritin is 147. All are good indicators that the patient is improving. Patient was seen by surgery yesterday, and repeat coronavirus PCR came back positive again they were asked to see him for possible tracheostomy. However now that the PCR remains positive, we'll discuss with surgery plans for tracheostomy. And PEG tube placement. Blood cultures from the were positive for Enterococcus faecalis. Patient is still on Unasyn. Reevaluated today on 02/18/20. Patient remains in the ICU, failed multiple att empts over the last few days of weaning utilizing pressure support and CPAP. Went on the pressure support as high as 12, patient wouldn't last long before he gets tired out, tachypneic, tachycardic, and I have recommended tracheostomy and PEG tube placement. This will likely be done today by Dr. Tracy. Presently the patient is on mechanical ventilation with assist control rate of 480, patien t is on volume control plus, he is also on FiO2 is 40% and PEEP of 5 rate is 24. ABG showed a pO2 68 E. CO2 of 35 pH of 7.48 Remains on fentanyl at 0.75 mcg/kg/h and on propofol at 50 mcg/kg/m. Patient did receive diuretics, however blood pressure went admitted to the low side, and I recommended fluid boluses again 500 mL at a time. Chest x-ray is showing minimal improvement in his bilateral interstitial infiltrates. Inflammatory markers are improving. C- reactive protein is down to less than 5 LDH is down to 516 and ferritin is down to 153. 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 Hence tracheostomy, PEG tube placement, eventual PICC line placement, and placement should be appropriate. Reevaluated today on 02/19/20, patient remains in the ICU, he is status post tracheostomy, postoperative day #1. He also had a PEG tube placed. This was done yesterday by Dr. Tracy. Patient remains on assist control rate of 24, tidal volume is 480 FiO2 is 40% and PEEP is 5. ABG today showed a pO2 of 79 pCO2 of 36 pH of 7.46. Patient is on propofol at 50 mcg/kg/m, fentanyl at 0.5 mcg/kg/h IV fluid 0.9 D5 at 50 ML per hour. Today will likely start tube feeding. And today I plan to hold sedation, addressed mental status, and seriously consider pressure support of 8 and CPAP. Chest x-ray is basically the same continues to show bilateral interstitial infiltrates. Last Covid testing was positive, may consider convalescent plasma transfusion for this patient if we could get it. And I will discuss this issue with his daughter for consent. CBC is relatively normal. Basic metabolic profile is normal except for slightly low sodium of 131. Covid 19 inflammatory markers are trending down. Reevaluated today on 02/20/20. Patient remains in the ICU. He tolerated pressure support and CPAP yesterday for almost 6 hours. He was later switched to assist control mode of mechanical ventilation, and he is presently on assist control rate of 24 tidal volume 480 FiO2 40% and PEEP of 5. ABG showed a pO2 of 80 pCO2 of 39 pH of 7.44. Patient is on minimal fentanyl, and I plan to discontinue the fentanyl, and I plan to place the patient back again on pressure support of 8 and CPAP as long as tolerated. May eventually switch the patient to a trach collar. Patient is awake, follows simple instructions, however he is profoundly weak, and clearly has a picture of critical illness polyneuropathy. He is mentally appropriate, follows simple instructions. But again profound weakness is noted. Today I plan to arrange for a central line removed and placement of a PICC line. Eventually we have to start addressing the issue of possible transfer to [facility]. Patient is hemodynamically stable. Last night he had episodes of hypotension and bradycardia even when he was on norepinephrine for a short Time he was developing more bradycardic episodes. Presently in sinus rhythm, asymptomatic, off all pressors, and again I plan to try the patient on pressure support of 8 and CPAP. I also plan to arrange for PICC line on this patient. And discontinue his central line. Chest x-ray continues to show bilateral interstitial infiltrates, not much of a loom changer the last 1 week. His inflammatory markers however have been gradually improving. Reevaluated today on 02/21/20, patient remains in the ICU, remains intubated and mechanically ventilated, he is also status post tracheostomy. Yesterday he went for most of the day on pressure support and CPAP, rested overnight on assist control mode of mechanical ventilation, and after I evaluated him this morning, recommended again pressure support and CPAP. Patient seems to be doing well with a pressure support of 8 and CPAP. He is moving at least 400-600 mL per tidal volume. He remains on GI and DVT prophylaxis. He is off fentanyl clevidipine on propofol. Chest x-ray is basically about the same continues to s how bilateral interstitial infiltrates. ABG this morning showed a pO2 of 95 pCO2 of 39 and pH of 7.46. This was on volume control plus mode of mechanical ventilation rate of 24 FiO2 of 40% and PEEP of 5. Basic rhythm was a profile is normal and CBC is relatively normal. Objective - Vital Signs Vital signs: Vital Signs Temp 98.1 F 02/21/20 04:00 Pulse 64 02/21/20 11:00 Resp 24 02/21/20 11:00 BP 141/77 02/21/20 11:00 Pulse Ox 96 02/21/20 11:00 Intake & Output 02/20/20 02/21/20 02/21/20 18:59 06:59 18:59 Intake Total 1652.876 6933.92 432 Output Total 2410 1275 550 Balance -1150.015 75.92 -118 Weight 96.6 kg 96.6 kg Intake: IV 330 300 240 Ampicillin-Sulbactam 3 gm 200 200 100 In Sodium Chloride 0.9% 100 ml @ 200 mls/hr IVPB Q6H [facility] Rx#:[id number] Piperacillin-Tazobactam 3 100 .375 gm In Sodium Chloride 0.9% 100 ml @ 25 mls/hr IVPB Q8HR [facility] Rx# :[id number] Sodium Chloride 0.9% 1, 130 100 40 000 ml @ 20 mls/hr IV . Q24H [facility] Rx#:[id number] Intake, IV Titration 119.985 192.92 Amount Potassium Chloride 20 meq 100 In Water For Injection 1 100ml.bag @ 50 mls/hr IVPB Q2H [facility] Rx#: [id number] fentaNYL (PF) 2,500 mcg 119.985 92.92 In Sodium Chloride 0.9% 200 ml @ 1.5 MCG/KG/HR 15 .69 mls/hr IV .[id number] [facility] Rx#:[id number] Tube Feeding 720 768 192 Other 90 90 Output: Urine 1410 1275 550 Stool 1000 Other: Voiding Method Indwelling Catheter Indwelling Catheter ABP, PAP, CO, CI - Last Documented Arterial Blood Pressure 94/51 - Exam GENERAL EXAM: Alert, very pleasant, 64-year-old white male, on mechanical ventilation, arousable, HEENT: PERRLA, EOMI, moist mucous membranes, tracheostomy is intact. CHEST: No chest wall deformity. Symmetrical expansion. LUNGS:crackles at the bases no rhonchi and no wheezes. CVS: Regular rate and rhythm, normal S1 and S2, no gallops, no murmurs, no rubs ABDOMEN: Soft, nontender. No hepatosplenomegaly, normal bowel sounds, no guarding or rigidity. PEG tube is intact EXTREMITIES: No clubbing, trace of bipedal edema, no cyanosis, 2+ pulses and upper and lower extremities. MUSCULOSKELETAL: Muscle tone normal. SKIN: No rashes CENTRAL NERVOUS SYSTEM: Alert and oriented 3, gross focal neurologic deficits, however the patient seems to be generally weak. PSYCHIATRIC: Normal mood affect and normal mental status examination - Labs CBC & Chem 7: 02/21/20 04:24 02/21/20 04:24 Labs: Abnormal Lab Results - Last 24 Hours (Table) 02/20/20 02/20/20 02/21/20 Range/Units 15:55 18:11 04:24 WBC 10.7 H (3.8-10.6) k/uL RBC 3.77 L (4.30-5.90) m/uL Hgb 11.8 L (13.0-17.5) gm/dL Hct 36.5 L (39.0-53.0) % RDW 18.9 H (11.5-15.5) % Neutrophils # 8.9 H (1.3-7.7) k/uL Lymphocytes # 0.7 L (1.0-4.8) k/uL ABG pH (7.35-7.45) ABG HCO3 (21-25) mmol/L ABG Total CO2 (19-24) mmol/L ABG O2 Saturation (94-97) % Sodium 136 L (137-145) mmol/L Potassium (3.5-5.1) mmol/L Creatinine 0.45 L (0.66-1.25) mg/dL Glucose 131 H (74-99) mg/dL POC Glucose (mg/dL) 126 H (75-99) mg/dL Calcium 8.2 L (8.4-10.2) mg/dL Total Protein (6.3-8.2) g/dL Albumin (3.5-5.0) g/dL 02/21/20 02/21/20 02/21/20 Range/Units 04:24 07:23 12:11 WBC (3.8-10.6) k/uL RBC (4.30-5.90) m/uL Hgb (13.0-17.5) gm/dL Hct (39.0-53.0) % RDW (11.5-15.5) % Neutrophils # (1.3-7.7) k/uL Lymphocytes # (1.0-4.8) k/uL ABG pH 7.46 H (7.35-7.45) ABG HCO3 28 H (21-25) mmol/L ABG Total CO2 29 H (19-24) mmol/L ABG O2 Saturation 97.8 H (94-97) % Sodium 134 L (137-145) mmol/L Potassium 3.3 L (3.5-5.1) mmol/L Creatinine 0.36 L (0.66-1.25) mg/dL Glucose (74-99) mg/dL POC Glucose (mg/dL) 104 H (75-99) mg/dL Calcium (8.4-10.2) mg/dL Total Protein 4.9 L (6.3-8.2) g/dL Albumin 2.5 L (3.5-5.0) g/dL Assessment and Plan Assessment: acute covid 19 pneumonitis. acute hypoxic respiratory failure secondary to above. Patient was a failure to wean. Hence Patient underwent tracheostomy on 02/18/20, Patient also underwent PEG tube placement Acute sepsis secondary to Enterococcus faecalis bacteremia. Suspect critical illness polyneuropathy/myopathy. Patient will likely need a prolonged course of rehabilitation. Acute hypercapnic respiratory failure secondary to severe pneumonitis secondary to covid 19. Resolved. diarrhea due to GI manifestation of Covid 19 infection, resolved. Status post tracheostomy and PEG tube placement, postoperative day #3. Recommendation: Placed patient again during the day on pressure support of 8 and CPAP. PICC line was already placed yesterday. Continue enteral feeding through PEG tube. Continue Unasyn for Enterococcus faecalis bacteremia and sepsis. Continue GI and DVT prophylaxis. Continue Lovenox. Continue bronchodilators and low-dose steroids. Patient is on prednisone 30 mg by mouth daily We'll make arrangements for the patient to eventually transfer to once they are willing to take. In the meantime continue present supportive care measures in the ICU. We'll continue to follow. Patient remains relatively critically ill, critical care time is 33 minutes Time with Patient: Greater than 30
[2020-02-21] MEDS: FLUCONAZOLE 100 MG TAB NG-TUBE SCH (16:06)
[2020-02-21] MEDS ORDERED: LORazepam 2 MG/ML INJ IV STA (17:06)
--- NOTE | 2020-02-21 17:45 | P.PN ---
Subjective Progress Note Date: 02/21/20 (delayed charting seen at 1245) Principal diagnosis: Diarrhea Patient is a 64-year-old male with rheumatoid arthritis on methotrexate therapy and prior tobacco abuse who was transferred here during the COVID relief process from [facility]. Initially on transfer here he is on have acute hypoxic respiratory failure with bilateral pneumonia typical of coronavirus, acute kidney injury and ATN, mild hyponatremia, and hypokalemia. He was also found to have COVID gastroenteritis. Infectious disease was consulted and at that point in time he was started on plaquenil, rocephin, and doxycycline.On 01/24 Pulmonary was consulted and he was started on solumedrol,as he was started on high flow at 10L, he was encouraged to awake prone. over the next several days his oxygen requirements continued to increase.he developed some bradycardia on 01/26 and cardiology was consulted. Echocardiogram was ordered. Extension ejection fraction of 55-60% with mild mitral regurgitation and tricuspid regurgitation. He completed a course of Zithromax but remained on Rocephin. On 01/28 his oxygenation worsened and he was transferred to the ICU he was intubated early on the morning of 01/29. He has central line and arterial lines placed on 01/29. He was initiated on sedation with propofol and required Nibex to maintain oxygentaiton and ventilation. His chest x-ray continued to show bilateral patchy infiltrates. He breifly required levopehd for less than 24 hours. He completed his course of hydroxychloroquine. He recieved 2 doses of Actrema on 02/02. Due to his high PEEP he developed some subcutaneous emphysema. He was placed on Lovenox 100 mg q 12 hours from 02/01-02/08 and was then transitioned back to Lovenox 40 mg dialy due to developing fluid overload he was then started on Lasix. On 02/09 he was given a trial extubation, he was extubated to BiPAP required reintubation within 2 hours. At that point in time he he was switched to pressure control ventilation and again required Nimbex. He developed worsening diarrhea and his Reglan and laxatives were discontinued. Stool for C. diff was sent and was negative. On 02/10 he went into A. fib with rapid ventricular response and became hypotensive he therefore required norepinephrine (02/10 and 02/11) was treated with amiodarone drip on 02/10 and 02/11 and returned to normal sinus rhythm. Pro-calcitonin level was checked on 02/10 due to increasing fevers and came back at 7.3 to and there is concern for superi nfection. He was treated with Merrem and vancomycin and cultures were sent. His blood culture came back positive for enterococcus and he was transitioned to unasyn. At that Point in time he had a troponin limit catheter in the right femoral vein which was changed out for a left IJ catheter. He was able to come off of paralytics on 02/12. He failed weaning trials on 02/14 and 02/15. He was agin transitioned to full dose lovenox on 02/16 due to the severity of his COVID- 19 infection and his continued PCR + infection. On 02/17 he had a trach and Peg placed. He again developed an episode of bradycardis and was re-evaluated by cardiology and this was felt to be vagovasal.He has a PICC line palced on and central lines we discontinued. He continued to tolerate short CPAP trials. He was determined suitable for LTACH as his PEEP was 5 and Fi02 40. Imaging: Upper extremity doppler 02/02: No DVT LUE Multiple CXR: bilateral interstitial infiltrates. Echo 01/26: EF 55-60%, mild MR and mild TR Right Elbow x-ray 02/03: degenerative changes, repeat in 7-10 days if continued pain Patient seen and examined at bedside. Awake and alert without complaints, able to cough, no chest pain or shortness of breath, has been working on trying to move arms and legs. Objective - Vital Signs Vital signs: Vital Signs Temp 98.1 F 02/21/20 04:00 Pulse 74 02/21/20 15:00 Resp 24 02/21/20 15:00 BP 145/89 02/21/20 15:00 Pulse Ox 97 02/21/20 15:00 Intake & Output 02/20/20 02/21/20 02/21/20 18:59 06:59 18:59 Intake Total 2807.907 2437.92 752 Output Total 2410 1275 950 Balance -1150.015 75.92 -198 Weight 96.6 kg 96.6 kg Intake: IV 330 300 290 Ampicillin-Sulbactam 3 gm 200 200 100 In Sodium Chloride 0.9% 100 ml @ 200 mls/hr IVPB Q6H [facility] Rx#:[id number] Piperacillin-Tazobactam 3 100 .375 gm In Sodium Chloride 0.9% 100 ml @ 25 mls/hr IVPB Q8HR [facility] Rx# :[id number] Sodium Chloride 0.9% 1, 130 100 90 000 ml @ 20 mls/hr IV . Q24H [facility] Rx#:[id number] Intake, IV Titration 119.985 192.92 Amount Potassium Chloride 20 meq 100 In Water For Injection 1 100ml.bag @ 50 mls/hr IVPB Q2H [facility] Rx#: [id number] fentaNYL (PF) 2,500 mcg 119.985 92.92 In Sodium Chloride 0.9% 200 ml @ 1.5 MCG/KG/HR 15 .69 mls/hr IV .[id number] [facility] Rx#:[id number] Tube Feeding 720 768 432 Other 90 90 30 Output: Urine 1410 1275 950 Stool 1000 Other: Voiding Method Indwelling Catheter Indwelling Catheter Indwelling Catheter ABP, PAP, CO, CI - Last Documented Arterial Blood Pressure 94/51 - Exam General: ill appearing , no distress, appears at stated age Derm: warm, dry Head: atraumatic, normocephalic, symmetric Eyes: EOMI, no lid lag, anicteric sclera Mouth: no lip lesion, mucus membranes moist Cardiovascular: S1S2 reg, no murmur, positive posterior tibial pulse bilateral, Lungs: course bs bilateral, no rhonchi, no rales , no accessory muscle use Abdominal: soft, nontender to palpation, no guarding, no appreciable organomegaly + peg tube in place no drainage Ext: no gross muscle atrophy, trace edema, no contractures Neuro: CN II-XI grossly intact, no focal neuro deficits Psych: Alert, oriented, appropriate affect - Labs CBC & Chem 7: 02/21/20 04:24 02/21/20 04:24 Labs: Abnormal Lab Results - Last 24 Hours (Table) 02/20/20 02/21/20 02/21/20 Range/Units 18:11 04:24 04:24 WBC 10.7 H (3.8-10.6) k/uL RBC 3.77 L (4.30-5.90) m/uL Hgb 11.8 L (13.0-17.5) gm/dL Hct 36.5 L (39.0-53.0) % RDW 18.9 H (11.5-15.5) % Neutrophils # 8.9 H (1.3-7.7) k/uL Lymphocytes # 0.7 L (1.0-4.8) k/uL ABG pH (7.35-7.45) ABG HCO3 (21-25) mmol/L ABG Total CO2 (19-24) mmol/L ABG O2 Saturation (94-97) % Sodium 134 L (137-145) mmol/L Potassium 3.3 L (3.5-5.1) mmol/L Creatinine 0.36 L (0.66-1.25) mg/dL POC Glucose (mg/dL) 126 H (75-99) mg/dL Total Protein 4.9 L (6.3-8.2) g/dL Albumin 2.5 L (3.5-5.0) g/dL 02/21/20 02/21/20 Range/Units 07:23 12:11 WBC (3.8-10.6) k/uL RBC (4.30-5.90) m/uL Hgb (13.0-17.5) gm/dL Hct (39.0-53.0) % RDW (11.5-15.5) % Neutrophils # (1.3-7.7) k/uL Lymphocytes # (1.0-4.8) k/uL ABG pH 7.46 H (7.35-7.45) ABG HCO3 28 H (21-25) mmol/L ABG Total CO2 29 H (19-24) mmol/L ABG O2 Saturation 97.8 H (94-97) % Sodium (137-145) mmol/L Potassium (3.5-5.1) mmol/L Creatinine (0.66-1.25) mg/dL POC Glucose (mg/dL) 104 H (75-99) mg/dL Total Protein (6.3-8.2) g/dL Albumin (3.5-5.0) g/dL Assessment and Plan Assessment: COVID 19 pneumonia and gastroenteritis Acute hypoxic respiratory failure requiring mechanical intubation ARDS Sepsis antibiotic associated diarrhea, C diff negative Enterococcus bacteremia Critical illness polyneuropathy/myopathy Bradycardia Immunocompromise secondary to history of rheumatoid arthritis with methotrexate use pneumonmediastinum Hypernatremia Anemia Constipation Acute fluid overload Paroxysmal Atrial fibrillation with rapid ventricular response Stage II pressure ulcer on Coccyx Overweight, BMI 28.9 Plan is for 2 weeks of Unasyn from his negative blood culture on 02/12 This wound given last date of February 26 and stop February 27. 2 weeks fo Diflucan and stop 02/26 (Sputum CX +). Of note depsite negative C diff he has had continued diarrhea requiring fecal mangement system. He was started on questran and lactobacillus on 02/19. Continue to increased ROM, undergoing weaning trial with critical care. Continued supportive care with tube feeds dietary recommended increased tube feeds on 02/20 due to medication changes. ( Vital AF 1.2 77 ml/hr and free water 30 mL every 4 hours). Frequent turns and barrier cream to coccyx DVT prophylaxis: Lovenox Discussed with: patient, nursing, Dr Simpson Anticipated discharge: in AM Anticipated discharge place: [facility] A total of 35 minutes was spent on the care of this complex patient more than 50% of the time was spent in counseling and care coordination.
[2020-02-21 18:17] LABS: Glucose,Whole Blood 128 mg/dL (75-99)
--- NOTE | 2020-02-21 18:40 | PN ---
PROGRESS NOTE DATE OF SERVICE: 02/21/2020 REASON FOR FOLLOWUP: Enterococcus faecalis bacteremia pneumonia. INTERVAL HISTORY: The patient is currently afebrile. Patient is weaning, more awake, alert, follows commands. No vomiting or diarrhea has been reported. Tolerating tube feeds and did have diarrhea for which the patient did have fecal management system. PHYSICAL EXAMINATION: Blood pressure 149/94 with a pulse of 80, temperature is 98.1. He is 97% on 40% FiO2. General description is a middle-aged male up in the bed in no distress. Respiratory system: Unlabored breathing. Coarse breath sounds bilaterally. Heart S1, S2. Regular rate and rhythm. Abdomen soft, no tenderness. LABS: Hemoglobin 11.8, white count 10.7, BUN of 11, creatinine 0.36. DIAGNOSTIC IMPRESSION AND PLAN: Patient with Enterococcus faecalis bacteremia, abdominal source though catheter culture has been negative. Blood culture has been negative. Currently on Unasyn to continue to finish a course of therapy. Monitor clinical course closely. MMODL / IJN: [id number] /
[2020-02-21] MEDS: LACTOBACILLUS ACIDOPH & BULGAR 1 EACH PACKET PO SCH (21:51)
[2020-02-22 00:33] LABS: Glucose,Whole Blood 100 mg/dL (75-99)
[2020-02-22] MEDS: INSULIN ASPART (NovoLOG) 100 UNIT/ML VIAL SQ SCH ×2 (00:43→05:36)
[2020-02-22 04:40] LABS: Anisocytosis Slight; Basophils % (A) 0 %; Eosinophils # (A) 0.3 k/uL (0-0.7); Eosinophils % (A) 4 %; HCT 36.2 % (39.0-53.0); Hypochromasia Slight; Lymphocytes # (A) 0.6 k/uL (1.0-4.8); Lymphocytes % (A) 7 %; MCH 29.6 pg (25.0-35.0); MCHC 30.5 g/dL (31.0-37.0); MCV 97.1 fL (80.0-100.0); Macrocytosis Slight; Mean Platelet Volume 8.1; Monocytes # (A) 0.5 k/uL (0-1.0); Monocytes % (A) 6 %; Neutrophils # (A) 7.5 k/uL (1.3-7.7); Neutrophils % (A) 82 %; Platelet Count 211 k/uL (150-450); RBC 3.73 m/uL (4.30-5.90); RDW 18.7 % (11.5-15.5); WBC 9.1 k/uL (3.8-10.6)
[2020-02-22 04:47] LABS: ALT 41 U/L (4-49); AST 21 U/L (17-59); African American GFR (CKD) >90 (>60 ml/min/1.73 sqM); Albumin 2.6 g/dL (3.5-5.0); Alkaline Phosphatase 84 U/L (38-126); Anion Gap 5 mmol/L; Blood Urea Nitrogen 12 mg/dL (9-20); Calcium 8.8 mg/dL (8.4-10.2); Carbon Dioxide 25 mmol/L (22-30); Chloride 103 mmol/L (98-107); Glucose 101 mg/dL (74-99); Non-African American GFR(CKD) >90 (>60 ml/min/1.73 sqM); Potassium 3.4 mmol/L (3.5-5.1); Sodium 133 mmol/L (137-145); Total Bilirubin 0.6 mg/dL (0.2-1.3)
[2020-02-22] MEDS: AMPICILLIN-SULBACTAM 3 GM in SODIUM CHLORIDE 0.9% 100 ML IVPB SCH ×2 (04:52→08:40)
[2020-02-22] MEDS: POTASSIUM CHLORIDE 20 MEQ in WATER FOR INJECTION 1 100ML.BAG IVPB SCH ×2 (04:55→08:03)
[2020-02-22 05:34] LABS: Glucose,Whole Blood 103 mg/dL (75-99)
--- NOTE | 2020-02-22 06:47 | XR ---
EXAMINATION TYPE: XR chest 1V portable DATE OF EXAM: 02/22/2020 HISTORY: compare. REFERENCE: Previous study dated 02/21/2020. FINDINGS: A tracheostomy tube remains in place. Its tip overlies the tracheal air column in this sing le frontal projection. The heart is not enlarged. There is worsening interstitial prominence throughout both lungs. Pleural spaces appear clear. IMPRESSION: WORSENING INTERSTITIAL PROMINENCE MAY REFLECT ATYPICAL PNEUMONIA.
[2020-02-22] MEDS ORDERED: PANTOPRAZOLE SODIUM 40 MG GRANULE PKT PEG/G-TUBE SCH (07:30)
--- NOTE | 2020-02-22 07:47 | P.DS ---
Providers Date of admission: 01/22/20 21:38 Expected date of discharge: 02/22/20 Attending physician: Sathya Espinosa MD Consults: 01/23/20 01:20 Consult Physician Routine Consulting Provider: Dean Pereyra Consult Reason/Comments: covid positive , immunocompromised Do you want consulting provider notified?: Yes 01/25/20 08:32 Consult Physician Routine Consulting Provider: Lacey Louise Consult Reason/Comments: Acute respiratory failure with COVID 19 Do you want consulting provider notified?: Yes 01/27/20 13:37 Consult Physician Routine Consulting Provider: Sourav Reyna Consult Reason/Comments: Arrhythmia on telemetry Do you want consulting provider notified?: Yes 02/16/20 09:14 Consult Physician Routine Consulting Provider: Joel Tracy Consult Reason/Comments: tracheostomy and peg tube placement Do you want consulting provider notified?: Yes 02/19/20 23:57 Consult Physician Routine Consulting Provider: Sourav Reyna Consult Reason/Comments: bradycardia, and frequent pauses Do you want consulting provider notified?: Yes Primary care physician: Randy Hermosillo MD Hospital Course: Discharge Diagnosis: COVID 19 pneumonia and gastroenteritis Acute hypoxic respiratory failure requiring mechanical intubation ARDS Sepsis antibiotic associated diarrhea, C diff negative Enterococcus bacteremia Critical illness polyneuropathy/myopathy Bradycardia Immunocompromise secondary to history of rheumatoid arthritis with methotrexate use pneumonmediastinum Hypernatremia Anemia Constipation Acute fluid overload Paroxysmal Atrial fibrillation with rapid ventricular response Stage II pressure ulcer on Coccyx Overweight, BMI 28.9 Hospital Course: Patient is a 64-year-old male with rheumatoid arthritis on methotrexate therapy and prior tobacco abuse who was transferred here during the COVID relief process from [facility]. Initially on transfer here he is on have acute hypoxic respiratory failure with bilateral pneumonia typical of coronavirus, acute kidney injury and ATN, mild hyponatremia, and hypokalemia. He was also found to have COVID gastroenteritis. Infectious disease was consulted and at that point in time he was started on plaquenil, rocephin, and doxycycline.On 01/24 Pulmonary was consulted and he was started on solumedrol,as he was started on high flow at 10L, he was encouraged to awake prone. over the next several days his oxygen requirements continued to increase.he developed some bradycardia on 4/7 and cardiology was consulted. Echocardiogram was ordered . Extension ejection fraction of 55-60% with mild mitral regurgitation and tricuspid regurgitation. He completed a course of Zithromax but remained on Rocephin. On 01/28 his oxygenation worsened and he was transferred to the ICU he was intubated early on the morning of 01/29. He has central line and arterial lines placed on 01/29. He was initiated on sedation with propofol and required Nibex to maintain oxygentaiton and ventilation. His chest x-ray continued to show bilateral patchy infiltrates. He breifly required levopehd for less than 24 hours. He completed his course of hydroxychloroquine. He recieved 2 doses of Actrema on 02/02. Due to his high PEEP he developed some subcutaneous emphysema. He was placed on Lovenox 100 mg q 12 hours from 02/01-02/08 and was then transitioned back to Lovenox 40 mg dialy due to developing fluid overload he was then started on Lasix. On 02/09 he was given a trial extubation, he was extubated to BiPAP required reintubation within 2 hours. At that point in time he he was switched to pressure control ventilation and again required Nimbex. He developed worsening diarrhea and his Reglan and laxatives were discontinued. Stool for C. diff was sent and was negative. On 02/10 he went into A. fib with rapid ventricular response and became hypotensive he therefore required norepinephrine (02/10 and 02/11) was treated with amiodarone drip on 02/10 and 02/11 and returned to normal sinus rhythm. Pro-calcitonin level was checked on 02/10 due to increasing fevers and came back at 7.3 to and there is concern for superinfection. He was treated with Merrem and vancomycin and cultures were sent. His blood culture came back positive for enterococcus and he was transitioned to unasyn. At that Point in time he had a troponin limit catheter in the right femoral vein which was changed out for a left IJ catheter. He was able to come off of paralytics on 02/12. He failed weaning trials on 02/14 and 02/15. He was agin transitioned to full dose lovenox on 02/16 due to the severity of his COVID-19 infection and his continued PCR + infection. On 02/17 he had a trach and Peg placed. He again developed an episode of bradycardis and was re- evaluated by cardiology and this was felt to be vagovasal.He has a PICC line palced on and central lines we discontinued. He continued to tolerate short CPAP trials. He was determined suitable for LTACH as his PEEP was 5 and Fi02 40. Plan is for 2 weeks of Unasyn from his negative blood culture on 02/12 This wound given last date of February 26 and stop February 27. 2 weeks fo Diflucan and stop 02/26 (Sputum CX +). Of note depsite negative C diff he has had continued diarrhea requiring fecal mangement system. He was started on questran and lactobacillus on 02/19. Patient is currently on prednisone taper 20 mg doses started 02/20 plan was to decrease by 10 every 7 days. Imaging: Upper extremity doppler 02/02: No DVT LUE Multiple CXR: bilateral interstitial infiltrates. Echo 01/26: EF 55-60%, mild MR and mild TR Right Elbow x-ray 02/03: degenerative changes, repeat in 7-10 days if continued pain Patient seen and examined at bedside. Awake on vent following commands. Vital signs reviewed and stable. General: ill appearing, no distress, appears at stated age Derm: warm, dry Mouth: no lip lesion, mucus membranes dry, trach in place Cardiovascular: reg rhythm Lungs: Trach in place, on AC Breathing over vent, Peak 16 Abdominal: fecal management system in place with stool, non distended Ext: 2+ edema, no contractures Psych: sleeping awakes easily, A total of 35 minutes of time were spent preparing this complex discharge summary . Patient Condition at Discharge: Serious Plan - Discharge Summary Discharge Rx Participant: No New Discharge Prescriptions: New RX: predniSONE [Deltasone] 20 mg PO DAILY tab RX: Fluconazole [Diflucan] 200 mg NG-TUBE DAILY@1600 tab RX: Lactobacillus Acidoph & Bulgar [Lactinex] 1 each PO TID packet RX: Enoxaparin [Lovenox] 80 mg SQ BID syringe HYDROcodone/APAP [[place] Elixir 7.5-325Mg/15Ml] 15 ml PO Q4HR PRN 3 Days #270 ml PRN Reason: Pain RX: INSULIN ASPART (NovoLOG) [NovoLOG (formulary)] 0 unit SQ Q6H vial RX: Zinc Sulfate [Orazinc] 220 mg PO DAILY cap RX: Chlorhexidine Gluconate [Peridex] 15 ml MUCOUS MEM BID solution RX: Cholestyramine (with Sugar) [Questran Packet] 4 gm PO BID@1000,1800 packet RX: Ampicillin-Sulbactam [Unasyn] 3 gm IVPB Q6H vial RX: Ascorbic Acid [Vitamin C] 500 mg OG-TUBE BID tab Continue RX: Albuterol Inhaler [Ventolin Hfa Inhaler] 2 puff INHALATION RT-TID PRN PRN Reason: Shortness Of Breath Discontinued RX: Omeprazole 20 mg PO DAILY Methotrexate Sodium [Methotrexate] 12.5 mg PO SA Discharge Medication List RX: Albuterol Inhaler [Ventolin Hfa Inhaler] 2 puff INHALATION RT-TID PRN 01/22/20 [History] HYDROcodone/APAP [[place] Elixir 7.5-325Mg/15Ml] 15 ml PO Q4HR PRN 3 Days #270 ml 02/22/20 [Rx] RX: Ampicillin-Sulbactam [Unasyn] 3 gm IVPB Q6H vial 02/22/20 [Rx] RX: Ascorbic Acid [Vitamin C] 500 mg OG-TUBE BID tab 02/22/20 [Rx] RX: Chlorhexidine Gluconate [Peridex] 15 ml MUCOUS MEM BID solution 02/22/20 [Rx] RX: Cholestyramine (with Sugar) [Questran Packet] 4 gm PO BID@1000,1800 packet 02/22/20 [Rx] RX: Enoxaparin [Lovenox] 80 mg SQ BID syringe 02/22/20 [Rx] RX: Fluconazole [Diflucan] 200 mg NG-TUBE DAILY@1600 tab 02/22/20 [Rx] RX: INSULIN ASPART (NovoLOG) [NovoLOG (formulary)] 0 unit SQ Q6H vial 02/22/20 [Rx] RX: Lactobacillus Acidoph & Bulgar [Lactinex] 1 each PO TID packet 02/22/20 [Rx] RX: Zinc Sulfate [Orazinc] 220 mg PO DAILY cap 02/22/20 [Rx] RX: predniSONE [Deltasone] 20 mg PO DAILY tab 02/22/20 [Rx] Activity/Diet/Wound Care/Special Instructions: Activity: as tolerated, Frequent ROM exercises Diet: Vital AF 1.2 Goal: 77 ml/hr and free water 30 mL every 4 hours currently at 68 Wound Care: Barrier cream to Stage II Coccyx ulcer Special Instructions: Plan is for 2 weeks of Unasyn from his negative blood culture on 02/12 This wound given last date of February 26 and stop February 27. End Date for Diflucan February 26. [place] in due to sever myopathy and bedbound state PICC line left basilic Maintain Fecal management system Current Vent Settings: AC rate 24, tidal volume 480, PEEP 5, FiO2 40% Patient is currently on prednisone taper 20 mg doses started 02/20 plan was to decrease by 10 every 7 days. [facility]
[2020-02-22] MEDS: ZINC SULFATE 220 MG CAP PO SCH (08:02)
[2020-02-22] MEDS: ENOXAPARIN 80 MG/0.8 ML SYRINGE SQ SCH (08:02)
[2020-02-22] MEDS: ASCORBIC ACID 500 MG TAB OG-TUBE SCH (08:02)
[2020-02-22] MEDS: CHLORHEXIDINE GLUCONATE 15 ML CUP MUCOUS MEM SCH (08:03)
[2020-02-22] MEDS: CHOLESTYRAMINE (WITH SUGAR) 4 GM PACKET PO SCH (08:03)
[2020-02-22 08:10] VITALS: TEMP 99.5
[2020-02-22] MEDS: LACTOBACILLUS ACIDOPH & BULGAR 1 EACH PACKET PO SCH (08:40)
[2020-02-22] MEDS ORDERED: predniSONE 20 MG TAB PO SCH (09:00)
[2020-02-22 09:38] VITALS: BP 148/85; PULSE 86; RESP 19
--- NOTE | 2020-02-22 10:39 | P.PN ---
Subjective Progress Note Date: 02/22/20 Principal diagnosis: acute covid 19 pneumonitis was asked to evaluate this patient who is a 64-year-old male who has been diagnosed having acute covid 19 pneumonia and the patient has been progressively becoming hypoxic as the patient was on few liters about 2 by nasal cannula and subsequently dioxin fluids and she is up to 6 L and then 8 L and currently is on 10 L of oxygen by nasal cannula. The decompensation of worsening the oxygenation has occurred over the past 24 hours. At this point in time the patient is having difficulty breathing which is mild. He has a dry cough. He is sleeping in a prone body position. Seems to be making him more comfortable. While on 10 L of oxygen, is pulse oxing around 96%. His heart rate is at 59. BP is 111/67. He was having on and off low-grade fever throughout the hospitalization and his last temperature spike was 100.3 from 01/24/2020 at 8:00 in the evening. He was given doxycycline Rocephin and Plaquenil. He was placed on zinc sulfate and I also added IV Solu-Medrol 40 mg every 12 hours. The patient had a chest x-ray showing worsening bilateral pulmonary infiltrates and pneumonia compared to the original chest x-ray that was done on 01/23/2020. The blood gas today that was done on a 65% FiO2 showed a pH of 7.46 with a pCO2 of 26 and pO2 of 63 consistent with hypoxemia and respiratory alkalosis. White cell count was suppressed at 3.1. The patient has lymphopenia with a lymphocyte count of 0.2. The patient had a pro-calcitonin level of 0.17. LDH level was 1067 at a time of admission and hasn't been rechecked.. This patient got chest her dose from [facility]. He reported diarrhea around 3 weeks ago and his been having progressive shortness of breath over the past 2-3 weeks. He denies having any body aches. He is extensively fatigued. He was in [place] for spring. He has history of rheumatoid arthritis and the patient has been taking methotrexate for many years regarding his RA On 01/26/2020 patient seen in follow-up on medical surgical floor. Is currently on 11 L per high flow oxygen, his pulse ox is 93%, he is been afebrile, hemodynamically patient is stable, non-tachycardic. Yesterday's chest x-ray has been reviewed showing worsening bilateral pneumonias, patient is on combination of doxycycline, Rocephin, hydroxy chloroquine, and IV Solu-Medrol 40 mg every 12 hours, patient is on zinc 220 mg daily, and Ventolin inhaler. Still dyspnea, but no acute distress. Follow-up labs have been reviewed today, white blood cell count is up to 5.9, hemoglobin is 12.8, sodium is 138, potassium is 3.3, yesterday's LDH was trending up, and CRP was also trending up. Pro-calcitonin was in the intermediate range of 0.17. Lung sounds reveal crackles at bilateral bases. He states although she is still short of breath he overall feels somewhat better. On 01/27/2020 patient seen in follow-up on medical surgical floor. Patient is awake and alert, his oxygenation demand did increase overnight, he is currently on 13 L per high flow nasal cannula, he is satting about 93%, however he appears to be in no acute distress, mildly dyspneic, still has a dry cough, lung sounds reveal some crackles in bilateral lungs, no rhonchi or wheezing, patient is positive for Covid 19 infection, and she remains on a regime of hydroxychloroquine, IV Solu-Medrol, Rocephin and doxycycline. Afebrile. Today's chest x-ray has been reviewed showing persistent diffuse interstitial infiltrates, improved lung volumes with some improvement in aeration of the lung bases. Continue current medical treatment, today's labs have been reviewed, d- dimer is up to 1.44, no leukocytosis, hemoglobin is 12.1, sodium is 137, potassium 3.3, chloride is 109, CO2 is 20, B1 is 14 creatinine 0.70, LDH slightly trended up to 1728, CK is 29, CRP has significantly improved and is down to 49 On 01/28/2020 patient seen in follow-up on general medical floor. He is Covid 19 positive, FiO2 is down to 11 L on today's exam, from 13 L on yesterday's exam, his pulse ox is 92%. We will to be in any acute distress, breathing is comfortable, lung sounds reveal some minimal crackles at bilateral bases, patient remains on Rocephin, azithromycin has been discontinued, and he has completed a course of Plaquenil. Afebrile in the last 24 hours. Patient was reevaluated today on 01/29/20, he was seen on the regular medical floor, and he is on high flow nasal cannula at 13 L/m, O2 saturation is marginal anywhere between 90-94% at best patient has shortness of breath, but does not seem to be in distress. He is breathing very comfortably. His chest x-ray showed slight worsening. Crackles at the bases bilaterally noted. After evaluating the patient, and considering that his O2 saturation has been fluctuating between 84 and 95%, I recommended observing the patient in the ICU, and I transferred the patient to the ICU. ABG on high flow nasal cannula showed a pO2 of 64 he CO2 of 31 pH of 7.52. His d-dimer is 2.30. CBC is normal basic metabolic profile is normal however his LDH is 6. C-reactive protein is 47. Reevaluated today on 01/30/20, patient was transferred yesterday to the intensive care unit, and around midnight, patient desaturated significantly, and we could not maintain his O2 saturation in the 90s. Patient was also noted by the nurse taking care of him to become more tachypneic, and he was using more and more of his accessory muscles. I was notified about the patient, and I recommended immediate intubation. Patient is now on mechanical ventilation, his ventilatory settings are assist control rate of 20 and this was increased to 26. His tidal volume was 450 assist-control rate FiO2 of 60% which was cut down to 50%, and PEEP was at 5 however I increased the PEEP to 10 today. I increased the flow rate to 70 L/m. Patient seems to be clinically dry, hence I recommended a liter of IV fluid in the form of 0.9 normal saline. I have also recommended that he remains on propofol at 50 fentanyl at 0.25 mcg/kg/h, and he is on Nimbex. Chest x-ray clearly shows evidence of diffuse interstitial infiltrates consistent with covid 19 pneumonitis. ABG this morning showed a pO2 of 116 pCO2 of 88 pH of 7.13, hence adjustment was made on his ventilatory settings. And rate was increased. PEEP was increased. And FiO2 was brought down to 50%. LDH today is 1827. And C-reactive protein is 47.4. Patient was reevaluated today on 01/31/20, remains intubated and mechanically ventilated. Patient is on assist control rate of 26 tidal volume is 450 FiO2 is 40% and PEEP is 10 however I cut it down to 8 today. And increased his rate to 30. Kept him on the same tidal volume of 4.50. The reason I made the change was because of his ABG showing pO2 of 116 pCO2 of 67 and pH of 7.27. His inflammatory markers are trending down. C-reactive protein is 44. Peak airway pressure is 26, plateau pressure is 21. Patient remains on propofol at 3 0 mcg/kg/m, fentanyl at 0.5 mcg/kg/h and on Nimbex at 3 mcg/kg/m. Off norepinephrine, remains on IV fluid 0.9 normal saline at 50 mL per hour.remains on enteral feeding.labs and chest x-ray were reviewed.chest x-ray continues to show patchy bilateral interstitial infiltrates Reevaluated today on 02/01/20, patient remains in the ICU, intubated and mechanically ventilated. His ventilator settings are assist control rate of 30 tidal volume is 450 FiO2 is 40% and I increased to 45%. PEEP is at 8. Patient remains on fentanyl 0.5 Nimbex at 3 g and propofol at 60 mcg/kg/m. Chest x-ray continues to show patchy bilateral infiltrates, not much of a significant change since yesterday. ABG showed a pO2 of 63 pCO2 of 63 pH of 7.37, hence FiO2 was increased to 40% and The same at 8. CBC is relatively normal. Lymphocytes remain low however. Platelets are normal. D-dimer is 1.40. Basic metabolic profile is normal. LDH is improving, down to 693 from as high as over 2000. C- reactive protein is down from 201 now it is 42.7, steadily improving. Hence considering the improvement, and considering the patient has less O2 requirement, I would likely hold Nimbex today, assess the patient off Nimbex and decide whether we could further wean or hold sedation and give the patient any weaning trial possibly today or in the next 24 hours. The patient is seen today 02/16/2020 in follow-up in the intensive care unit. He remains intubated on the mechanical ventilator. Currently in VC plus mode with a tidal volume 450 expiratory time 1.0. Rate of 24. FiO2 40% and a PEEP of 5. Morning blood gases reveal a P O2 of 64, pCO2 39, pH 7.46. He remains sedated on propofol currently at 40 mcg/kg/m. Fentanyl at 1.5 mcg/kg per hour. Cleviprex at 1 mg per hour. Being nourished with vital HP at 43 ML's which is go al. Yesterday he tolerated pressure support of 8 and a CPAP of 5 for approximately 3 hours. He was given additional sedation holiday today with a pressure support of 12 and CPAP of 5. Unfortunately the patient developed significant tachycardia, hypertension and tachypnea. This all occurred with a daily interruption of sedation and prior to even obtaining any breathing trials today. He has been quite sedate and significantly weak and unable to follow simple commands. Suspect critical illness polyneuropathy. He had previously failed extubation and has been reintubated since 02/10/2020. Blood cultures are positive for Enterococcus faecalis. Catheter tip and urine cultures were negative. White count 5.1. Hemoglobin 11.1. Platelets 204. Sodium 136. Potassium 3.8. Bicarb 28. Creatinine 0.62. Ferritin 144. LDH 645. C- reactive protein less than 5. He remains on Unasyn. Chest x-ray continues to show extensive subcutaneous emphysema and bibasilar airspace disease, stable co mpared to yesterday. Reevaluated today on 02/17/20, patient remains in the intensive care unit, intu bated and mechanically ventilated. Yesterday patient failed any attempts for weaning trial. However we will address again today by placing the patient on pressure support of 12 and CPAP. In the meantime the patient remains on mechanical ventilation, his tidal volume is 480 assist control rate of 24 FiO2 is 40% and PEEP is 5. ABG showed a pO2 of 81 pCO2 of 37 pH of 7.43. Remains on fentanyl at 1.5 mcg/kg/m and on the prevent at 40 mcg/kg/m. Chest x-ray continues to show bilateral interstitial infiltrates secondary to Covid 19 pneumonitis. Today I have given the patient a dose of Lasix. And we have recommended increasing Lovenox 80 mg subcu twice a day. I have also raised the concern about possibly giving the patient convalescent plasma if available. In the meantime I would also hold all narcotics and sedatives, and give the patient weaning trial if possible today. Although I am not very confident that the patient will do well, but at least we'll give the patient a trial of weaning if possible. CBC is relatively normal, basic metabolic profile is relatively normal, inflammatory markers were noted, LDH is down to 552 C-reactive protein is less than 5 and ferritin is 147. All are good indicators that the patient is improving. Patient was seen by surgery yesterday, and repeat coronavirus PCR came back positive again they were asked to see him for possible tracheostomy. However now that the PCR remains positive, we'll discuss with surgery plans for tracheostomy. And PEG tube placement. Blood cultures from the were positive for Enterococcus faecalis. Patient is still on Unasyn. Reevaluated today on 02/18/20. Patient remains in the ICU, failed multiple att empts over the last few days of weaning utilizing pressure support and CPAP. Went on the pressure support as high as 12, patient wouldn't last long before he gets tired out, tachypneic, tachycardic, and I have recommended tracheostomy and PEG tube placement. This will likely be done today by Dr. Tracy. Presently the patient is on mechanical ventilation with assist control rate of 480, patien t is on volume control plus, he is also on FiO2 is 40% and PEEP of 5 rate is 24. ABG showed a pO2 68 E. CO2 of 35 pH of 7.48 Remains on fentanyl at 0.75 mcg/kg/h and on propofol at 50 mcg/kg/m. Patient did receive diuretics, however blood pressure went admitted to the low side, and I recommended fluid boluses again 500 mL at a time. Chest x-ray is showing minimal improvement in his bilateral interstitial infiltrates. Inflammatory markers are improving. C- reactive protein is down to less than 5 LDH is down to 516 and ferritin is down to 153. 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 Hence tracheostomy, PEG tube placement, eventual PICC line placement, and placement should be appropriate. Reevaluated today on 02/19/20, patient remains in the ICU, he is status post tracheostomy, postoperative day #1. He also had a PEG tube placed. This was done yesterday by Dr. Tracy. Patient remains on assist control rate of 24, tidal volume is 480 FiO2 is 40% and PEEP is 5. ABG today showed a pO2 of 79 pCO2 of 36 pH of 7.46. Patient is on propofol at 50 mcg/kg/m, fentanyl at 0.5 mcg/kg/h IV fluid 0.9 D5 at 50 ML per hour. Today will likely start tube feeding. And today I plan to hold sedation, addressed mental status, and seriously consider pressure support of 8 and CPAP. Chest x-ray is basically the same continues to show bilateral interstitial infiltrates. Last Covid testing was positive, may consider convalescent plasma transfusion for this patient if we could get it. And I will discuss this issue with his daughter for consent. CBC is relatively normal. Basic metabolic profile is normal except for slightly low sodium of 131. Covid 19 inflammatory markers are trending down. Reevaluated today on 02/20/20. Patient remains in the ICU. He tolerated pressure support and CPAP yesterday for almost 6 hours. He was later switched to assist control mode of mechanical ventilation, and he is presently on assist control rate of 24 tidal volume 480 FiO2 40% and PEEP of 5. ABG showed a pO2 of 80 pCO2 of 39 pH of 7.44. Patient is on minimal fentanyl, and I plan to discontinue the fentanyl, and I plan to place the patient back again on pressure support of 8 and CPAP as long as tolerated. May eventually switch the patient to a trach collar. Patient is awake, follows simple instructions, however he is profoundly weak, and clearly has a picture of critical illness polyneuropathy. He is mentally appropriate, follows simple instructions. But again profound weakness is noted. Today I plan to arrange for a central line removed and placement of a PICC line. Eventually we have to start addressing the issue of possible transfer to [facility]. Patient is hemodynamically stable. Last night he had episodes of hypotension and bradycardia even when he was on norepinephrine for a short Time he was developing more bradycardic episodes. Presently in sinus rhythm, asymptomatic, off all pressors, and again I plan to try the patient on pressure support of 8 and CPAP. I also plan to arrange for PICC line on this patient. And discontinue his central line. Chest x-ray continues to show bilateral interstitial infiltrates, not much of a pattern changer the last 1 week. His inflammatory markers however have been gradually improving. Reevaluated today on 02/21/20, patient remains in the ICU, remains intubated and mechanically ventilated, he is also status post tracheostomy. Yesterday he went for most of the day on pressure support and CPAP, rested overnight on assist control mode of mechanical ventilation, and after I evaluated him this morning, recommended again pressure support and CPAP. Patient seems to be doing well with a pressure support of 8 and CPAP. He is moving at least 400-600 mL per tidal volume. He remains on GI and DVT prophylaxis. He is off fentanyl clevidipine on propofol. Chest x-ray is basically about the same continues to s how bilateral interstitial infiltrates. ABG this morning showed a pO2 of 95 pCO2 of 39 and pH of 7.46. This was on volume control plus mode of mechanical ventilation rate of 24 FiO2 of 40% and PEEP of 5. Basic rhythm was a profile is normal and CBC is relatively normal. Patient was reevaluated today on 03/20/20. Again he tolerated weaning on a pressure support of 8 and CPAP yesterday for over 6 hours. However he developed mucous plugging, requiring suctioning, and he had to be placed back on assist control mode of mechanical ventilation. And he remains on the assist control mode today. Chest x-ray is basically about the same continues to show diffuse interstitial infiltrates. Patient is resting, basically asymptomatic. His labs were basically unremarkable except for low potassium. Today I discussed with the hospitalist possibly transferring the patient is accepted to be transferred today to [facility]. Objective - Vital Signs Vital signs: Vital Signs Temp 99.5 F 02/22/20 08:00 Pulse 86 02/22/20 09:00 Resp 19 02/22/20 09:00 BP 148/85 02/22/20 09:00 Pulse Ox 96 02/22/20 09:00 Intake & Output 02/21/20 02/22/20 02/22/20 18:59 06:59 18:59 Intake Total 1046 1516 324 Output Total 1290 900 300 Balance -244 616 24 Weight 96.6 kg 99 kg Intake: IV 410 320 20 Ampicillin-Sulbactam 3 gm 200 200 In Sodium Chloride 0.9% 100 ml @ 200 mls/hr IVPB Q6H [facility] Rx#:[id number] Piperacillin-Tazobactam 3 100 .375 gm In Sodium Chloride 0.9% 100 ml @ 25 mls/hr IVPB Q8HR [facility] Rx# :[id number] Sodium Chloride 0.9% 1, 110 120 20 000 ml @ 20 mls/hr IV . Q24H [facility] Rx#:[id number] Intake, IV Titration 100 100 Amount Potassium Chloride 20 meq 100 100 In Water For Injection 1 100ml.bag @ 50 mls/hr IVPB Q2H [facility] Rx#: [id number] Tube Feeding 576 1006 204 Other 60 90 Output: Urine 1290 900 300 Other: Voiding Method Indwelling Catheter Indwelling Catheter Indwelling Catheter ABP, PAP, CO, CI - Last Documented Arterial Blood Pressure 94/51 - Exam GENERAL EXAM: Alert, very pleasant, 64-year-old white male, on mechanical ventilation, awake, oriented 3. HEENT: PERRLA, EOMI, moist mucous membranes, tracheostomy is intact. CHEST: No chest wall deformity. Symmetrical expansion. LUNGS:crackles at the bases no rhonchi and no wheezes. CVS: Regular rate and rhythm, normal S1 and S2, no gallops, no murmurs, no rubs ABDOMEN: Soft, nontender. No hepatosplenomegaly, normal bowel sounds, no gu arding or rigidity. PEG tube is intact EXTREMITIES: No clubbing, trace of bipedal edema, no cyanosis, 2+ pulses and upper and lower extremities. MUSCULOSKELETAL: Muscle tone normal. SKIN: No rashes CENTRAL NERVOUS SYSTEM: Alert and oriented 3, gross focal neurologic deficits, however the patient seems to be generally weak. PSYCHIATRIC: Normal mood affect and normal mental status examination - Labs CBC & Chem 7: 02/22/20 03:50 02/22/20 03:50 Labs: Abnormal Lab Results - Last 24 Hours (Table) 02/21/20 02/21/20 02/22/20 Range/Units 12:11 18:07 00:23 RBC (4.30-5.90) m/uL Hgb (13.0-17.5) gm/dL Hct (39.0-53.0) % MCHC (31.0-37.0) g/dL RDW (11.5-15.5) % Lymphocytes # (1.0-4.8) k/uL Sodium (137-145) mmol/L Potassium (3.5-5.1) mmol/L Creatinine (0.66-1.25) mg/dL Glucose (74-99) mg/dL POC Glucose (mg/dL) 104 H 128 H 100 H (75-99) mg/dL Total Protein (6.3-8.2) g/dL Albumin (3.5-5.0) g/dL 02/22/20 02/22/20 02/22/20 Range/Units 03:50 03:50 05:31 RBC 3.73 L (4.30-5.90) m/uL Hgb 11.0 L (13.0-17.5) gm/dL Hct 36.2 L (39.0-53.0) % MCHC 30.5 L (31.0-37.0) g/dL RDW 18.7 H (11.5-15.5) % Lymphocytes # 0.6 L (1.0-4.8) k/uL Sodium 133 L (137-145) mmol/L Potassium 3.4 L (3.5-5.1) mmol/L Creatinine 0.39 L (0.66-1.25) mg/dL Glucose 101 H (74-99) mg/dL POC Glucose (mg/dL) 103 H (75-99) mg/dL Total Protein 5.0 L (6.3-8.2) g/dL Albumin 2.6 L (3.5-5.0) g/dL Assessment and Plan Assessment: acute covid 19 pneumonitis. acute hypoxic respiratory failure secondary to above. Patient was a failure to wean. Hence Patient underwent tracheostomy on 02/18/20, Patient also underwent PEG tube placement Acute sepsis secondary to Enterococcus faecalis bacteremia. Suspect critical illness polyneuropathy/myopathy. Acute hypercapnic respiratory failure secondary to severe pneumonitis secondary to covid 19. Resolved. diarrhea due to GI manifestation of Covid 19 infection, resolved. Status post tracheostomy and PEG tube placement, postoperative day #4 Status post PEG tube placement Status post PICC line placement. Recommendation: Continue present measures including ventilatory support. Continue daily trials of weaning. Continue physical therapy. Continue enteral feeding. Continue antibiotics for his Enterococcus faecalis bacteremia. Transfer plans to [facility] care specialty is in progress. Patient is stable for transfer today. Time with Patient: Less than 30
--- NOTE | 2020-02-23 07:50 | ECHOF ---
Referral Reason: MEASUREMENTS -------- HEIGHT: 182.9 cm WEIGHT: 97.1 kg BP: 153/90 FINDINGS -------- Sinus rhythm. Limited Study Overall left ventricular systolic function is normal with, an EF between 55 - 60 %. There is no pericardial effusion. CONCLUSIONS -------- 1. Sinus rhythm. 2. Limited Study 3. Overall left ventricular systolic function is normal with, an EF between 55 - 60 %. 4. There is no pericardial effusion. GEOPHYSICAL E LOGGER: Padmini Harris [facility]
== END 2020-02-22 10:33 | DRG 4 ==
LOC: 4SSUR 21:38 → 2SICU 01-29 11:00
PROVIDERS: ADMIT Internal Medicine; ATTEND Internal Medicine
PROC: 5A1955Z Respiratory Ventilation, Greater than 96 Consecutive Hours (ICD-10-PCS; principal; 2020-01-29)
PROC: 0BH17EZ Insertion of Endotracheal Airway into Trachea, Via Natural or Artificial Opening (ICD-10-PCS; principal; 2020-01-29)
PROC: 3E033XZ Introduction of Vasopressor into Peripheral Vein, Percutaneous Approach (ICD-10-PCS; 2020-01-30)
PROC: 05HN33Z Insertion of Infusion Device into Left Internal Jugular Vein, Percutaneous Approach (ICD-10-PCS; 2020-01-30)
PROC: 03HB33Z Insertion of Infusion Device into Right Radial Artery, Percutaneous Approach (ICD-10-PCS; 2020-01-30)
PROC: 03HY32Z Insertion of Monitoring Device into Upper Artery, Percutaneous Approach (ICD-10-PCS; 2020-02-03)
PROC: 4A133J1 Monitoring of Arterial Pulse, Peripheral, Percutaneous Approach (ICD-10-PCS; 2020-02-03)
PROC: 4A133B1 Monitoring of Arterial Pressure, Peripheral, Percutaneous Approach (ICD-10-PCS; 2020-02-03)
PROC: 06HM33Z Insertion of Infusion Device into Right Femoral Vein, Percutaneous Approach (ICD-10-PCS; 2020-02-03)
PROC: 02HV33Z Insertion of Infusion Device into Superior Vena Cava, Percutaneous Approach (ICD-10-PCS; 2020-02-13)
PROC: 0B113F4 Bypass Trachea to Cutaneous with Tracheostomy Device, Percutaneous Approach (ICD-10-PCS; 2020-02-18 10:30)
PROC: 0DH63UZ Insertion of Feeding Device into Stomach, Percutaneous Approach (ICD-10-PCS; 2020-02-18 10:30)
PROC: 02HV33Z Insertion of Infusion Device into Superior Vena Cava, Percutaneous Approach (ICD-10-PCS; 2020-02-20)
DX: U07.1 COVID-19 (principal); J12.89 Other viral pneumonia; A41.81 Sepsis due to Enterococcus; J80 Acute respiratory distress syndrome; N17.0 Acute kidney failure with tubular necrosis; J69.0 Pneumonitis due to inhalation of food and vomit; J15.9 Unspecified bacterial pneumonia; E87.0 Hyperosmolality and hypernatremia; E87.1 Hypo-osmolality and hyponatremia; E87.4 Mixed disorder of acid-base balance; G62.81 Critical illness polyneuropathy; G72.81 Critical illness myopathy; I47.2 Ventricular tachycardia; I31.9 Disease of pericardium, unspecified; K52.1 Toxic gastroenteritis and colitis; L89.152 Pressure ulcer of sacral region, stage 2; J98.2 Interstitial emphysema; E83.51 Hypocalcemia; I95.89 Other hypotension; D72.810 Lymphocytopenia; D64.9 Anemia, unspecified; E16.2 Hypoglycemia, unspecified; E66.3 Overweight; E86.0 Dehydration; E87.6 Hypokalemia; E87.70 Fluid overload, unspecified; I08.1 Rheumatic disorders of both mitral and tricuspid valves; I10 Essential (primary) hypertension; I48.0 Paroxysmal atrial fibrillation; A08.4 Viral intestinal infection, unspecified; K59.00 Constipation, unspecified; M06.9 Rheumatoid arthritis, unspecified; T36.95XA Adverse effect of unspecified systemic antibiotic, initial encounter; E86.9 Volume depletion, unspecified; R00.1 Bradycardia, unspecified; Z79.899 Other long term (current) drug therapy; Z68.28 Body mass index [BMI] 28.0-28.9, adult; Z87.891 Personal history of nicotine dependence; Y84.8 Other medical procedures as the cause of abnormal reaction of the patient, or of later complication, without mention of misadventure at the time of the procedure
CPT/HCPCS: 36573; 36600; 43246; 71045; 80048; 80053; 81001; 82550; 82553; 82728; 82805; 83036; 83050; 83520; 83615; 83735; 84132; 84145; 84443; 84484; 85025; 85027; 85379; 86140; 87040; 87070; 87077; 87086; 87186; 87205; 87324; 87635; 93005; 93306; 93308; 94002; 94003; 94640; 94660; 94760